=== PATIENT | female | born 1950 | race African-American/Black ===

== ENCOUNTER 2017-11-14 21:30 | Inpatient (IN) | payer MEDICARE, MEDICAID ==
[~2017-11-14] VITALS: Ht 165.1 cm; Wt 134.1 kg
[2017-11-14 23:32] LABS: Eosinophils # (auto) 0 uL
[2017-11-14 23:34] LABS: Basophils # (auto) 0.3 uL; Basophils % (auto) 1.9 % (0.0-2.0); Eosinophils % (auto) 0.1 % (0.0-7.0); Hematocrit 43.6 % (36.0-46.0); Hemoglobin 11.4 g/dL (12.2-16.2); Lymphocytes % (auto) 19.6 % (10.0-50.0); Mean Corpuscular Hemoglobin 15.6 pg (28.0-32.0); Mean Corpuscular Hgb Conc. 26.1 g/dL (32.0-36.0); Monocytes # (auto) 1.4 uL; Neutrophils # (auto) 10.5 uL; Neutrophils % (auto) 69.4 % (37.0-80.0); Nucleated Red Blood Cells % 0.9 %; Red Blood Cells 7.29 10^6/uL (4.0-5.20); White Blood Cell 15.1 10^3/uL (4.4-10.8)
[2017-11-14 23:37] LABS: INR 1.1 (0.9-1.15); Partial Thromboplastin Time 22.6 sec (22.64-33.71)
[2017-11-14 23:39] LABS: Mean Corpuscular Volume 59.9 fL (80.0-100.0); Platelet Count (auto) 179 10^3/uL (140-450); Red Cell Distribution Width 26.6 % (11.8-14.3)
[2017-11-14 23:45] LABS: Albumin 3.1 g/dL (3.4-5.0); BUN/Creatinine Ratio 17.2; Calcium 8.5 mg/dL (8.5-10.1); Magnesium 2.3 mg/dL (1.6-2.6); Potassium 5.5 mmol/L (3.5-5.1)
[2017-11-14 23:48] LABS: Bilirubin, Total 0.8 mg/dL (0.2-1.0); Total Protein 6.9 g/dL (6.4-8.2)
[2017-11-15 02:26] LABS: Lactic Acid w/Reflex 3.3 mmol/L (0.4-2.0)
[2017-11-15] MEDS ORDERED: FUROSEMIDE 40 MG/4 ML VIAL IV ONE ×2 (03:15→05:15)
[2017-11-15] MEDS ORDERED: ALBUMIN 25% 100 ML IV ONE (05:15)
[2017-11-15] MEDS ORDERED: PIPERACILLIN-TAZOB 2.25GM 50 ML IV ONE (05:15)
[2017-11-15] MEDS ORDERED: ACETAMINOPHEN 325 MG TAB PO PRN (05:15)
[2017-11-15] MEDS ORDERED: MORPHINE SULFATE 4 MG/ML SYR/VIAL IV PRN (05:15)
[2017-11-15] MEDS ORDERED: DEXTROSE (50%) 50ML SYRG IV PRN (05:15)
[2017-11-15] MEDS ORDERED: ATORVASTATIN 20 MG TAB PO ONE (05:15)
[2017-11-15] MEDS ORDERED: NITROGLYCERIN 0.4 MG SL TAB SL PRN (05:15)
[2017-11-15] MEDS ORDERED: ONDANSETRON HCL 4 MG/2 ML VIAL IV PRN (05:15)
[2017-11-15] MEDS ORDERED: ALBUTEROL SULF 2.5 MG/0.5ML(0.5%) NEB SOLN NEB ONE (05:45)
[2017-11-15] MEDS ORDERED: methylPREDNISolone SOD SUCC 125 MG/2 ML VL IV ONE (05:45)
[2017-11-15] MEDS: InsuLIN REG 1unit/0.01ml Soln (100units/ml) SC SCH ×3 (06:00→18:27)
[2017-11-15] MEDS: ACCU-CHEK COMFORT CURVE STRIP VI SCH ×3 (06:08→18:15)
[2017-11-15] MEDS: NOREPINEPHRINE 8 MG/250ML KIT 250 ML IV SCH (07:51)
[2017-11-15 08:57] LABS: Urine Bacteria FEW /hpf (None Seen); Urine Blood 1+ /uL (Negative); Urine Hyaline Cast MOD /lpf (0 - 2); Urine Mucus FEW (None Seen); Urine Specific Gravity 1.014 (1.001-1.035); Urine WBC 90 /hpf (0 - 5); Urine WBC Clumps PRESENT /hpf (None Seen)
[2017-11-15 08:58] LABS: Anion Gap 8 (5-15); Blood Urea Nitrogen 40 mg/dL (7-18); Calcium 8.6 mg/dL (8.5-10.1); Carbon Dioxide 26 mmol/L (21-32); Chloride 103 mmol/L (98-107); GFR African American 32 mL/min; GFR Non-African American 26 mL/min; Glucose 118 mg/dL (74-106); Potassium 5.4 mmol/L (3.5-5.1); Sodium 137 mmol/L (136-145)
[2017-11-15 10:00] VITALS: BP 118/65
[2017-11-15] MEDS ORDERED: ENOXAPARIN SOD 30 MG/0.3 ML SYRINGE SC SCH (10:00)
[2017-11-15] MEDS ORDERED: VANCOMYCIN PER PHARMACY 0 MG IV SCH (11:15)
[2017-11-15] MEDS ORDERED: VANCOMYCIN 1GM/250ML 250 ML IV ONE (11:15)
[2017-11-15] MEDS ORDERED: ENOXAPARIN SOD 120 MG/0.8 ML SYRINGE SC SCH (11:30)
[2017-11-15 12:07] VITALS: BP 120/63
[2017-11-15] MEDS: ENOXAPARIN SOD 120 MG/0.8 ML SYRINGE SC SCH (12:09)
[2017-11-15] MEDS: PIPERACILLIN-TAZOB 2.25GM 50 ML IV SCH ×2 (12:09→18:04)
[2017-11-15 14:00] VITALS: BP 118/62
[2017-11-15] MEDS: VANCOMYCIN 1GM/250ML 250 ML IV SCH (14:17)
[2017-11-15 15:40] VITALS: BP 114/68
[2017-11-15 20:16] VITALS: BP 122/64
[2017-11-15 22:02] VITALS: BP 131/74
[2017-11-15] MEDS: ATORVASTATIN 20 MG TAB PO SCH (22:29)
[2017-11-16 00:10] VITALS: BP 107/64
[2017-11-16] MEDS: ACCU-CHEK COMFORT CURVE STRIP VI SCH ×5 (01:00→23:57)
[2017-11-16] MEDS: PIPERACILLIN-TAZOB 2.25GM 50 ML IV SCH ×5 (01:02→23:41)
[2017-11-16] MEDS: InsuLIN REG 1unit/0.01ml Soln (100units/ml) SC SCH ×5 (01:10→23:57)
[2017-11-16 02:09] VITALS: BP 107/66
[2017-11-16 04:07] VITALS: BP 116/67
[2017-11-16 05:46] LABS: Eosinophils # (auto) 0 uL
[2017-11-16 05:49] LABS: Basophils # (auto) 0.2 uL; Basophils % (auto) 1.1 % (0.0-2.0); Hematocrit 36.5 % (36.0-46.0); Hemoglobin 9.7 g/dL (12.2-16.2); Lymphocytes % (auto) 14.5 % (10.0-50.0); Mean Corpuscular Hemoglobin 15.8 pg (28.0-32.0); Mean Corpuscular Hgb Conc. 26.7 g/dL (32.0-36.0); Monocytes # (auto) 2.3 uL; Monocytes % (auto) 16.7 % (0.0-12.0); Neutrophils # (auto) 9.5 uL; Neutrophils % (auto) 67.7 % (37.0-80.0); Nucleated Red Blood Cells % 1.6 %; Red Blood Cells 6.19 10^6/uL (4.0-5.20); White Blood Cell 14.1 10^3/uL (4.4-10.8)
[2017-11-16] MEDS: NOREPINEPHRINE 8 MG/250ML KIT 250 ML IV SCH (05:53)
[2017-11-16 05:58] VITALS: BP 121/58
[2017-11-16 06:08] LABS: BUN/Creatinine Ratio 22.2; Bilirubin, Total 0.9 mg/dL (0.2-1.0); Calcium 8.4 mg/dL (8.5-10.1); Potassium 5.3 mmol/L (3.5-5.1); Total Protein 7.1 g/dL (6.4-8.2)
[2017-11-16 06:09] LABS: Red Cell Distribution Width 25.5 % (11.8-14.3)
[2017-11-16 06:10] LABS: Platelet Count (auto) 172 10^3/uL (140-450)
[2017-11-16] MEDS: VANCOMYCIN 1GM/250ML 250 ML IV SCH (07:53)
[2017-11-16] MEDS ORDERED: HYDR-531 PO (09:31)
[2017-11-16] MEDS: LEVOFLOXACIN 250MG 50 ML IV SCH (10:10)
[2017-11-16] MEDS: ENOXAPARIN SOD 120 MG/0.8 ML SYRINGE SC SCH (10:10)
[2017-11-16] MEDS ORDERED: LEVOFLOXACIN 500MG 100 ML IV SCH (11:30)
[2017-11-16] MEDS: HYDROcodone-ACET 5/325MG TAB PO PRN (13:26)
[2017-11-16 17:37] VITALS: BP 125/57
[2017-11-16] MEDS: TEMAZEPAM 15 MG CAP PO PRN (21:45)
[2017-11-16] MEDS: ATORVASTATIN 20 MG TAB PO SCH (21:45)
[2017-11-16 22:00] VITALS: BP 119/66
[2017-11-16 22:17] LABS: Urine Bacteria NONE SEEN /hpf (None Seen); Urine Blood 2+ /uL (Negative); Urine Specific Gravity 1.015 (1.001-1.035); Urine WBC 17 /hpf (0 - 5)
[2017-11-16 22:33] LABS: Protein, Urine 32.4 mg/dL (0.0-11.9)
[2017-11-17] VITALS (7 sets, daily range): BP systolic 115–129; BP diastolic 56–71
[2017-11-17] MEDS: VANCOMYCIN 1GM/250ML 250 ML IV SCH ×2 (00:56→18:49)
[2017-11-17] MEDS: NOREPINEPHRINE 8 MG/250ML KIT 250 ML IV SCH (05:01)
[2017-11-17] MEDS: PIPERACILLIN-TAZOB 2.25GM 50 ML IV SCH ×4 (05:27→23:52)
[2017-11-17] MEDS: InsuLIN REG 1unit/0.01ml Soln (100units/ml) SC SCH ×3 (06:00→17:39)
[2017-11-17] MEDS: ACCU-CHEK COMFORT CURVE STRIP VI SCH ×4 (06:10→23:53)
[2017-11-17 08:58] LABS: Basophils # (auto) 0.3 uL; Eosinophils # (auto) 0.1 uL; Eosinophils % (auto) 0.9 % (0.0-7.0); Lymphocytes % (auto) 12.8 % (10.0-50.0)
[2017-11-17 09:00] LABS: Albumin 2.9 g/dL (3.4-5.0); BUN/Creatinine Ratio 22.3; Basophils % (auto) 1.8 % (0.0-2.0); Calcium 8.7 mg/dL (8.5-10.1); Hematocrit 37.3 % (36.0-46.0); Hemoglobin 9.8 g/dL (12.2-16.2); Mean Corpuscular Hemoglobin 15.4 pg (28.0-32.0); Mean Corpuscular Hgb Conc. 26.4 g/dL (32.0-36.0); Mean Corpuscular Volume 58.2 fL (80.0-100.0); Monocytes # (auto) 1.5 uL; Monocytes % (auto) 9.9 % (0.0-12.0); Neutrophils # (auto) 11.5 uL; Neutrophils % (auto) 74.6 % (37.0-80.0); Nucleated Red Blood Cells % 0.5 %; Phosphorus 2.7 mg/dL (2.5-4.90); Platelet Count (auto) 168 10^3/uL (140-450); Potassium 4.2 mmol/L (3.5-5.1); Total Protein 6.8 g/dL (6.4-8.2); Uric Acid 5.4 mg/dL (2.6-6.0); White Blood Cell 15.4 10^3/uL (4.4-10.8)
[2017-11-17 09:20] LABS: Red Cell Distribution Width 25.5 % (11.8-14.3)
[2017-11-17] MEDS ORDERED: LIDOCAINE 2%HCL (LOCAL ANESTH.) INJ 20ML MDV ONE ×2 (09:20→10:01)
[2017-11-17] MEDS ORDERED: IOHEXOL 350 MG/ML 100ML IJ ONE (09:20)
[2017-11-17] MEDS: ENOXAPARIN SOD 120 MG/0.8 ML SYRINGE SC SCH (09:42)
[2017-11-17] MEDS: LEVOFLOXACIN 250MG 50 ML IV SCH (09:42)
[2017-11-17] MEDS ORDERED: fentaNYL CITRATE 100 MCG/2 ML VL ONE (09:53)
[2017-11-17] MEDS ORDERED: SODIUM CHL 0.9% 0 ML ONE (09:53)
[2017-11-17] MEDS ORDERED: MIDAZOLAM HCL 1MG/1ML-2 ML VIAL ONE (09:53)
[2017-11-17] MEDS ORDERED: ANGIOMAX 250 MG VIAL IV ONE (09:53)
[2017-11-17] MEDS ORDERED: LIDOCAINE HCL 100 MG/5ML (2%) SYRG INJ IV ONE (10:09)
[2017-11-17] MEDS ORDERED: ONDANSETRON HCL 4 MG/2 ML VIAL ONE (10:15)
[2017-11-17] MEDS ORDERED: SODIUM CHLORIDE 0.9% 1,000 ML IV ONE (15:15)
[2017-11-17] MEDS ORDERED: MAGN400C2 PO (15:39)
[2017-11-17] MEDS ORDERED: LORA-35 PO (15:39)
[2017-11-17] MEDS ORDERED: PROP80CA10 PO (15:39)
[2017-11-17] MEDS ORDERED: SIMV-8 PO (15:39)
[2017-11-17] MEDS ORDERED: METF-371 PO (15:39)
[2017-11-17] MEDS ORDERED: INSUINJ2 SC ×2 (15:48)
[2017-11-17] MEDS ORDERED: INSLISPI SC ×2 (15:48)
[2017-11-17] MEDS ORDERED: LISI10TA6 PO (15:48)
[2017-11-17] MEDS ORDERED: HYDR-3682 PO (15:48)
[2017-11-17] MEDS ORDERED: CYCL7.5T15 PO (15:48)
[2017-11-17] MEDS ORDERED: ALLO100T PO (15:48)
[2017-11-17] MEDS ORDERED: OMEP20CA74 PO (15:48)
[2017-11-17] MEDS ORDERED: GABA300C10 PO (15:48)
[2017-11-17] MEDS ORDERED: CHOL200031 PO (15:49)
[2017-11-17] MEDS: HYDROcodone-ACET 5/325MG TAB PO PRN ×2 (17:56→22:31)
[2017-11-17] MEDS: ATORVASTATIN 20 MG TAB PO SCH (22:31)
[2017-11-18] VITALS (7 sets, daily range): BP systolic 119–154; BP diastolic 60–72
[2017-11-18] MEDS: InsuLIN REG 1unit/0.01ml Soln (100units/ml) SC SCH ×5 (00:04→23:39)
[2017-11-18] MEDS: NOREPINEPHRINE 8 MG/250ML KIT 250 ML IV SCH (05:01)
[2017-11-18] MEDS: PIPERACILLIN-TAZOB 2.25GM 50 ML IV SCH ×4 (05:24→23:29)
[2017-11-18] MEDS: ACCU-CHEK COMFORT CURVE STRIP VI SCH ×4 (05:29→23:34)
[2017-11-18] MEDS: VANCOMYCIN 1GM/250ML 250 ML IV SCH ×2 (07:08→18:24)
[2017-11-18 09:40] LABS: Eosinophils # (auto) 0.1 uL; Hemoglobin 10.1 g/dL (12.2-16.2); Mean Corpuscular Volume 60.1 fL (80.0-100.0); White Blood Cell 12.9 10^3/uL (4.4-10.8)
[2017-11-18 09:42] LABS: Basophils # (auto) 0.2 uL; Basophils % (auto) 1.5 % (0.0-2.0); Eosinophils % (auto) 0.5 % (0.0-7.0); Hematocrit 39.1 % (36.0-46.0); Lymphocytes # (auto) 1.5 uL; Lymphocytes % (auto) 11.9 % (10.0-50.0); Mean Corpuscular Hemoglobin 15.5 pg (28.0-32.0); Mean Corpuscular Hgb Conc. 25.8 g/dL (32.0-36.0); Monocytes # (auto) 1.4 uL; Monocytes % (auto) 10.7 % (0.0-12.0); Neutrophils # (auto) 9.7 uL; Neutrophils % (auto) 75.4 % (37.0-80.0); Nucleated Red Blood Cells % 1.3 %; Platelet Count (auto) 173 10^3/uL (140-450); Red Blood Cells 6.51 10^6/uL (4.0-5.20)
[2017-11-18 09:49] LABS: Red Cell Distribution Width 26.3 % (11.8-14.3)
[2017-11-18 10:07] LABS: BUN/Creatinine Ratio 16.9; Bilirubin, Total 1.1 mg/dL (0.2-1.0); Calcium 8.7 mg/dL (8.5-10.1); Total Protein 7.2 g/dL (6.4-8.2)
[2017-11-18] MEDS: LEVOFLOXACIN 500MG 100 ML IV SCH (12:53)
[2017-11-18] MEDS: ENOXAPARIN SOD 120 MG/0.8 ML SYRINGE SC SCH ×2 (12:53→22:25)
[2017-11-18] MEDS: TEMAZEPAM 15 MG CAP PO PRN (22:25)
[2017-11-18] MEDS: ATORVASTATIN 20 MG TAB PO SCH (22:25)
[2017-11-19] MEDS: ALBUTEROL SULF 2.5 MG/0.5ML(0.5%) NEB SOLN NEB PRN ×2 (01:27→09:31)
[2017-11-19 05:00] VITALS: BP 144/64
[2017-11-19] MEDS: PIPERACILLIN-TAZOB 2.25GM 50 ML IV SCH ×2 (05:06→11:24)
[2017-11-19] MEDS: ACCU-CHEK COMFORT CURVE STRIP VI SCH ×2 (05:13→11:24)
[2017-11-19] MEDS: InsuLIN REG 1unit/0.01ml Soln (100units/ml) SC SCH ×2 (05:14→11:40)
[2017-11-19 05:59] LABS: Potassium 4.4 mmol/L (3.5-5.1)
[2017-11-19 06:03] LABS: BUN/Creatinine Ratio 16.5; Calcium 8.4 mg/dL (8.5-10.1)
[2017-11-19] MEDS: VANCOMYCIN 1GM/250ML 250 ML IV SCH (06:50)
[2017-11-19 08:00] VITALS: BP 129/65
[2017-11-19 09:00] VITALS: BP 129/65
[2017-11-19] MEDS: ENOXAPARIN SOD 120 MG/0.8 ML SYRINGE SC SCH (09:49)
[2017-11-19] MEDS: LEVOFLOXACIN 500MG 100 ML IV SCH (09:49)
[2017-11-19 12:20] VITALS: BP 129/65
[2017-12-28] MEDS ORDERED: FERR28TA2 PO (22:46)
[2017-12-28] MEDS ORDERED: ASCO500C49 PO (22:46)
[2017-12-28] MEDS ORDERED: POTA10TA51 PO (22:46)
[2017-12-28] MEDS ORDERED: FURO40TA PO (22:46)
== END 2017-11-19 14:20 | disposition home or self-care (01) | DRG 871 ==
LOC: ER 21:30 → OVERFLOW 21:31 → TELE-WESTW 11-16 17:09
PROVIDERS: ADMIT Nurse Practitioner; ATTEND Family Medicine
PROC: 5A09357 Assistance with Respiratory Ventilation, Less than 24 Consecutive Hours, Continuous Positive Airway Pressure (ICD-10-PCS; 2017-11-15)
PROC: 5A09357 Assistance with Respiratory Ventilation, Less than 24 Consecutive Hours, Continuous Positive Airway Pressure (ICD-10-PCS; 2017-11-16)
PROC: 4A023N8 Measurement of Cardiac Sampling and Pressure, Bilateral, Percutaneous Approach (ICD-10-PCS; principal; 2017-11-17)
PROC: B2111ZZ Fluoroscopy of Multiple Coronary Arteries using Low Osmolar Contrast (ICD-10-PCS; 2017-11-17)
PROC: B2151ZZ Fluoroscopy of Left Heart using Low Osmolar Contrast (ICD-10-PCS; 2017-11-17)
DX: A41.9 Sepsis, unspecified organism (principal); R65.21 Severe sepsis with septic shock; J96.01 Acute respiratory failure with hypoxia; J96.02 Acute respiratory failure with hypercapnia; I27.0 Primary pulmonary hypertension; I50.43 Acute on chronic combined systolic (congestive) and diastolic (congestive) heart failure; N17.9 Acute kidney failure, unspecified; N39.0 Urinary tract infection, site not specified; I13.0 Hypertensive heart and chronic kidney disease with heart failure and stage 1 through stage 4 chronic kidney disease, or unspecified chronic kidney disease; J44.1 Chronic obstructive pulmonary disease with (acute) exacerbation; Z68.42 Body mass index [BMI] 45.0-49.9, adult; E66.01 Morbid (severe) obesity due to excess calories; E11.22 Type 2 diabetes mellitus with diabetic chronic kidney disease; N18.3 Chronic kidney disease, stage 3 (moderate); D64.9 Anemia, unspecified; E78.5 Hyperlipidemia, unspecified; E86.1 Hypovolemia; E87.5 Hyperkalemia; R79.1 Abnormal coagulation profile; E66.9 Obesity, unspecified; E78.00 Pure hypercholesterolemia, unspecified; G47.00 Insomnia, unspecified; Z79.4 Long term (current) use of insulin
CPT/HCPCS: 36415; 36600; 51702; 70450; 71045; 72125; 80048; 80053; 80202; 81001; 82570; 82805; 82962; 83605; 83735; 83880; 84100; 84156; 84300; 84484; 84550; 85025; 85379; 85610; 85730; 87040; 87081; 87086; 87804; 93005; 93306; 93460; 93970; 94640; 94660; 94761; 96372; 96374; 96375; 99152; G0378; J1815; J1956; J2250; J2405; J2543

== ENCOUNTER → 2018-02-17 | Outpatient (CLI) | payer MEDICARE, MEDICAID ==
[~2018-02-17] MED LIST: ALLO100T PO; ASCO500C49 PO; CHOL200031 PO; CYCL7.5T15 PO; FERR28TA2 PO; FURO40TA PO; GABA300C10 PO; HYDR-3682 PO; INSLISPI SC; INSUINJ2 SC; LISI10TA6 PO; LORA-35 PO; MAGN400C2 PO; METF-371 PO; OMEP20CA74 PO; POTA10TA51 PO; SIMV-8 PO
[2018-02-17 16:36] LABS: Eosinophils # (auto) 0.4 uL; Hemoglobin 13.1 g/dL (12.2-16.2); Mean Corpuscular Hemoglobin 19.8 pg (28.0-32.0)
[2018-02-17 16:38] LABS: Basophils # (auto) 0.2 uL; Eosinophils % (auto) 2.5 % (0.0-7.0); Hematocrit 44.8 % (36.0-46.0); Lymphocytes % (auto) 25.1 % (10.0-50.0); Mean Corpuscular Hgb Conc. 29.4 g/dL (32.0-36.0); Mean Corpuscular Volume 67.3 fL (80.0-100.0); Monocytes # (auto) 1.3 uL; Monocytes % (auto) 7.9 % (0.0-12.0); Neutrophils # (auto) 10.1 uL; Neutrophils % (auto) 63.5 % (37.0-80.0); Nucleated Red Blood Cells % 0.2 %; Platelet Count (auto) 272 10^3/uL (140-450); Red Blood Cells 6.65 10^6/uL (4.0-5.20); White Blood Cell 15.9 10^3/uL (4.4-10.8)
[2018-02-17 16:43] LABS: Red Cell Distribution Width 28.7 % (11.8-14.3)
[2018-02-17 18:46] LABS: % Iron Saturation 20.3 % (15-50)
[2018-02-17 18:47] LABS: Albumin 3.6 g/dL (3.4-5.0); BUN/Creatinine Ratio 11.7; Bilirubin, Total 0.3 mg/dL (0.2-1.0); Total Protein 8.7 g/dL (6.4-8.2)
== END | disposition home or self-care (01) ==
LOC: LAB 15:41
PROVIDERS: ATTEND Internal Medicine
DX: D64.9 Anemia, unspecified (principal); I13.2 Hypertensive heart and chronic kidney disease with heart failure and with stage 5 chronic kidney disease, or end stage renal disease; E11.22 Type 2 diabetes mellitus with diabetic chronic kidney disease; N18.6 End stage renal disease; I50.43 Acute on chronic combined systolic (congestive) and diastolic (congestive) heart failure
CPT/HCPCS: 36415; 80053; 83021; 83540; 83550; 83615; 85025; 85660

== ENCOUNTER → 2018-04-20 | Outpatient (CLI) | payer MEDICARE, MEDICAID ==
[2018-04-20 14:25] VITALS: BP 124/72
[2018-04-20 16:15] VITALS: BP 143/72
[2018-04-21 12:42] LABS: Basophils # (auto) 0.1 uL; Basophils % (auto) 0.6 % (0.0-2.0); Nucleated Red Blood Cells % 0.3 %
[2018-04-21 12:45] LABS: Eosinophils # (auto) 0.1 uL; Eosinophils % (auto) 0.9 % (0.0-7.0); Hematocrit 44.2 % (36.0-46.0); Lymphocytes # (auto) 3.1 uL; Lymphocytes % (auto) 25.2 % (10.0-50.0); Mean Corpuscular Hemoglobin 21.5 pg (28.0-32.0); Mean Corpuscular Hgb Conc. 29.5 g/dL (32.0-36.0); Monocytes # (auto) 0.8 uL; Monocytes % (auto) 6.7 % (0.0-12.0); Neutrophils # (auto) 8.2 uL; Neutrophils % (auto) 66.6 % (37.0-80.0); Platelet Count (auto) 238 10^3/uL (140-450); Red Blood Cells 6.05 10^6/uL (4.0-5.20); Urine Blood Negative /uL (Negative); Urine Specific Gravity 1.009 (1.001-1.035); White Blood Cell 12.3 10^3/uL (4.4-10.8)
[2018-04-21 12:59] LABS: Red Cell Distribution Width 21.8 % (11.8-14.3)
[2018-04-21 13:17] LABS: Albumin 3.5 g/dL (3.4-5.0); BUN/Creatinine Ratio 14.4; Calcium 9.2 mg/dL (8.5-10.1); Magnesium 2.2 mg/dL (1.6-2.6); Potassium 4.6 mmol/L (3.5-5.1)
[2018-04-21 13:19] LABS: Bilirubin, Total 0.2 mg/dL (0.2-1.0); Total Protein 8.4 g/dL (6.4-8.2)
== END | disposition home or self-care (01) ==
LOC: CHF HDHVI 14:49
PROVIDERS: ATTEND Internal Medicine Cardiovascular Disease
DX: D64.9 Anemia, unspecified (principal); E55.9 Vitamin D deficiency, unspecified; N39.0 Urinary tract infection, site not specified; I27.21 Secondary pulmonary arterial hypertension; I13.2 Hypertensive heart and chronic kidney disease with heart failure and with stage 5 chronic kidney disease, or end stage renal disease; E11.22 Type 2 diabetes mellitus with diabetic chronic kidney disease; N18.6 End stage renal disease; I50.9 Heart failure, unspecified
CPT/HCPCS: 36415; 80053; 81003; 82306; 83735; 85025; 87086; 93701; 94618; G0463

== ENCOUNTER → 2018-04-28 | Outpatient (CLI) | payer MEDICARE, MEDICAID | END | disposition home or self-care (01) | LOC: Rad HDHVI 12:35 | PROVIDERS: ATTEND Internal Medicine Cardiovascular Disease | DX: I07.1 Rheumatic tricuspid insufficiency (principal); I09.89 Other specified rheumatic heart diseases; M10.9 Gout, unspecified; I31.3 Pericardial effusion (noninflammatory); E78.00 Pure hypercholesterolemia, unspecified; R06.02 Shortness of breath | CPT/HCPCS: 93306 ==

== ENCOUNTER → 2018-05-05 | Outpatient (CLI) | payer MEDICARE, MEDICAID | END | disposition home or self-care (01) | LOC: Rad HDHVI 12:37 | PROVIDERS: ATTEND Internal Medicine Cardiovascular Disease | DX: I73.9 Peripheral vascular disease, unspecified (principal); M10.9 Gout, unspecified; E11.40 Type 2 diabetes mellitus with diabetic neuropathy, unspecified; E78.00 Pure hypercholesterolemia, unspecified | CPT/HCPCS: 93880; 93926 ==

== ENCOUNTER → 2018-05-26 | Outpatient (CLI) | payer MEDICARE, MEDICAID ==
[2018-05-26 11:15] VITALS: BP 122/60
[2018-05-26 12:20] VITALS: BP 148/75
== END | disposition home or self-care (01) ==
LOC: CHF HDHVI 14:41
PROVIDERS: ATTEND Internal Medicine Cardiovascular Disease
DX: I27.21 Secondary pulmonary arterial hypertension (principal)
CPT/HCPCS: G0463

== ENCOUNTER → 2018-06-02 | Outpatient (CLI) | payer MEDICARE, MEDICAID ==
[2018-06-02 10:45] VITALS: BP 129/55
[2018-06-02 11:45] VITALS: BP 136/63
[2018-06-02 15:58] LABS: Basophils # (auto) 0.1 uL; Basophils % (auto) 0.5 % (0.0-2.0); Eosinophils # (auto) 0.2 uL; Eosinophils % (auto) 1.9 % (0.0-7.0); Hematocrit 39.8 % (36.0-46.0); Hemoglobin 12.3 g/dL (12.2-16.2); Lymphocytes # (auto) 2.7 uL; Lymphocytes % (auto) 25.8 % (10.0-50.0); Mean Corpuscular Hgb Conc. 30.9 g/dL (32.0-36.0); Mean Corpuscular Volume 71.2 fL (80.0-100.0); Neutrophils # (auto) 6.7 uL; Neutrophils % (auto) 62.8 % (37.0-80.0); Nucleated Red Blood Cells % 0.5 %; Platelet Count (auto) 239 10^3/uL (140-450); Red Blood Cells 5.59 10^6/uL (4.0-5.20); Red Cell Distribution Width 18.3 % (11.8-14.3); White Blood Cell 10.7 10^3/uL (4.4-10.8)
[2018-06-02 16:09] LABS: Albumin 3.6 g/dL (3.4-5.0); BUN/Creatinine Ratio 17.2; Bilirubin, Total 0.3 mg/dL (0.2-1.0); Magnesium 2.2 mg/dL (1.6-2.6); Potassium 4.6 mmol/L (3.5-5.1); Total Protein 8.2 g/dL (6.4-8.2)
== END | disposition home or self-care (01) ==
LOC: CHF HDHVI 11:04
PROVIDERS: ATTEND Internal Medicine Cardiovascular Disease
DX: I13.2 Hypertensive heart and chronic kidney disease with heart failure and with stage 5 chronic kidney disease, or end stage renal disease (principal); E11.22 Type 2 diabetes mellitus with diabetic chronic kidney disease; N18.6 End stage renal disease; I50.23 Acute on chronic systolic (congestive) heart failure; E83.40 Disorders of magnesium metabolism, unspecified; D64.9 Anemia, unspecified; I27.21 Secondary pulmonary arterial hypertension; Z99.81 Dependence on supplemental oxygen; Z79.899 Other long term (current) drug therapy
CPT/HCPCS: 36415; 80053; 83036; 83735; 83880; 85025; G0463

== ENCOUNTER → 2018-06-16 | Outpatient (CLI) | payer MEDICARE, MEDICAID ==
[~2018-06-16] MED LIST changes: +CYANOCOBALAMIN (B-12) 1000 MCG/1 ML VIAL IM ONE; +CYANOCOBALAMIN (B-12) 1000 MCG/1 ML VIAL ONE
[2018-06-16 11:00] VITALS: BP 142/70
[2018-06-16 12:30] VITALS: BP 138/63
[2018-06-16 16:34] LABS: Basophils # (auto) 0 uL; Basophils % (auto) 0.5 % (0.0-2.0); Eosinophils # (auto) 0.3 uL; Eosinophils % (auto) 3.3 % (0.0-7.0); Hematocrit 38.2 % (36.0-46.0); Hemoglobin 11.9 g/dL (12.2-16.2); Lymphocytes # (auto) 2.4 uL; Lymphocytes % (auto) 27.6 % (10.0-50.0); Mean Corpuscular Hgb Conc. 31.1 g/dL (32.0-36.0); Mean Corpuscular Volume 70.7 fL (80.0-100.0); Monocytes % (auto) 11.3 % (0.0-12.0); Neutrophils # (auto) 4.9 uL; Neutrophils % (auto) 57.3 % (37.0-80.0); Nucleated Red Blood Cells % 0.1 %; Platelet Count (auto) 224 10^3/uL (140-450); Red Cell Distribution Width 18.5 % (11.8-14.3); White Blood Cell 8.6 10^3/uL (4.4-10.8)
[2018-06-16 16:45] LABS: BUN/Creatinine Ratio 14.3; Calcium 9.5 mg/dL (8.5-10.1); Potassium 4.5 mmol/L (3.5-5.1)
== END | disposition home or self-care (01) ==
LOC: CHF HDHVI 11:19
PROVIDERS: ATTEND Internal Medicine Cardiovascular Disease
DX: D64.9 Anemia, unspecified (principal); R53.83 Other fatigue; I27.21 Secondary pulmonary arterial hypertension; I13.2 Hypertensive heart and chronic kidney disease with heart failure and with stage 5 chronic kidney disease, or end stage renal disease; E11.22 Type 2 diabetes mellitus with diabetic chronic kidney disease; N18.6 End stage renal disease; I50.23 Acute on chronic systolic (congestive) heart failure; E78.00 Pure hypercholesterolemia, unspecified; Z99.81 Dependence on supplemental oxygen; Z79.899 Other long term (current) drug therapy
CPT/HCPCS: 36415; 80048; 85025; 96372; G0463; J3420

== ENCOUNTER → 2018-06-30 | Outpatient (CLI) | payer MEDICARE, MEDICAID ==
[~2018-06-30] MED LIST changes: -CYANOCOBALAMIN (B-12) 1000 MCG/1 ML VIAL IM ONE; -CYANOCOBALAMIN (B-12) 1000 MCG/1 ML VIAL ONE
[2018-06-30 10:50] VITALS: BP 150/75
[2018-06-30 11:39] VITALS: BP 139/78
[2018-06-30 16:20] LABS: Basophils # (auto) 0.1 uL
[2018-06-30 16:23] LABS: Eosinophils % (auto) 2.3 % (0.0-7.0)
[2018-06-30 16:24] LABS: Potassium 4.3 mmol/L (3.5-5.1)
[2018-06-30 16:33] LABS: Basophils % (auto) 0.7 % (0.0-2.0); Eosinophils # (auto) 0.3 uL; Hematocrit 39.6 % (36.0-46.0); Hemoglobin 12.3 g/dL (12.2-16.2); Lymphocytes # (auto) 2.7 uL; Lymphocytes % (auto) 24.5 % (10.0-50.0); Mean Corpuscular Hemoglobin 21.9 pg (28.0-32.0); Mean Corpuscular Hgb Conc. 31.1 g/dL (32.0-36.0); Mean Corpuscular Volume 70.5 fL (80.0-100.0); Monocytes # (auto) 1.1 uL; Monocytes % (auto) 10.1 % (0.0-12.0); Neutrophils # (auto) 6.8 uL; Neutrophils % (auto) 62.4 % (37.0-80.0); Nucleated Red Blood Cells % 0.7 %; Platelet Count (auto) 258 10^3/uL (140-450); Red Blood Cells 5.61 10^6/uL (4.0-5.20); Red Cell Distribution Width 18.4 % (11.8-14.3); White Blood Cell 10.9 10^3/uL (4.4-10.8)
== END | disposition home or self-care (01) ==
LOC: CHF HDHVI 11:36
PROVIDERS: ATTEND Internal Medicine Cardiovascular Disease
DX: E87.6 Hypokalemia (principal); R94.4 Abnormal results of kidney function studies; D64.9 Anemia, unspecified; I27.21 Secondary pulmonary arterial hypertension; E11.9 Type 2 diabetes mellitus without complications
CPT/HCPCS: 36415; 82565; 84132; 84520; 85025; G0463

== ENCOUNTER → 2018-07-29 | Outpatient (CLI) | payer MEDICARE, MEDICAID ==
[2018-07-29 09:13] VITALS: BP 155/75
[2018-07-29 10:15] VITALS: BP 143/75
[2018-07-29 14:20] VITALS: BP 155/75
== END | disposition home or self-care (01) ==
LOC: CHF HDHVI 08:59
PROVIDERS: ATTEND Internal Medicine Cardiovascular Disease
DX: I27.21 Secondary pulmonary arterial hypertension (principal)
CPT/HCPCS: 93701; G0463

== ENCOUNTER → 2018-08-12 | Outpatient (CLI) | payer MEDICARE, MEDICAID ==
[~2018-08-12] MED LIST changes: +CYANOCOBALAMIN (B-12) 1000 MCG/1 ML VIAL IM ONE; +CYANOCOBALAMIN (B-12) 1000 MCG/1 ML VIAL ONE
[2018-08-12 09:00] VITALS: BP 156/70
[2018-08-12 10:00] VITALS: BP 156/68
[2018-08-12 12:37] LABS: Basophils # (auto) 0 uL; Basophils % (auto) 0.4 % (0.0-2.0); Eosinophils # (auto) 0.2 uL; Eosinophils % (auto) 2.3 % (0.0-7.0); Lymphocytes # (auto) 2.8 uL; White Blood Cell 9.5 10^3/uL (4.4-10.8)
[2018-08-12 12:40] LABS: Hemoglobin 12.5 g/dL (12.2-16.2); Mean Corpuscular Hemoglobin 21.3 pg (28.0-32.0); Mean Corpuscular Hgb Conc. 30.6 g/dL (32.0-36.0); Mean Corpuscular Volume 69.8 fL (80.0-100.0); Monocytes # (auto) 0.8 uL; Monocytes % (auto) 8.9 % (0.0-12.0); Neutrophils # (auto) 5.5 uL; Neutrophils % (auto) 58.4 % (37.0-80.0); Nucleated Red Blood Cells % 0.2 %; Platelet Count (auto) 249 10^3/uL (140-450); Red Blood Cells 5.87 10^6/uL (4.0-5.20); Red Cell Distribution Width 17.8 % (11.8-14.3)
[2018-08-12 12:46] LABS: Albumin 3.5 g/dL (3.4-5.0); Calcium 9.4 mg/dL (8.5-10.1); Potassium 4.4 mmol/L (3.5-5.1)
[2018-08-12 12:48] LABS: BUN/Creatinine Ratio 13.2
[2018-08-12 12:51] LABS: Bilirubin, Total 0.3 mg/dL (0.2-1.0); Total Protein 8.4 g/dL (6.4-8.2)
== END | disposition home or self-care (01) ==
LOC: CHF HDHVI 09:51
PROVIDERS: ATTEND Internal Medicine Cardiovascular Disease
DX: D64.9 Anemia, unspecified (principal); I27.21 Secondary pulmonary arterial hypertension; R53.1 Weakness; I13.2 Hypertensive heart and chronic kidney disease with heart failure and with stage 5 chronic kidney disease, or end stage renal disease; E11.22 Type 2 diabetes mellitus with diabetic chronic kidney disease; N18.6 End stage renal disease; I50.43 Acute on chronic combined systolic (congestive) and diastolic (congestive) heart failure; I25.10 Atherosclerotic heart disease of native coronary artery without angina pectoris; J44.9 Chronic obstructive pulmonary disease, unspecified; E78.00 Pure hypercholesterolemia, unspecified; E78.5 Hyperlipidemia, unspecified; E66.01 Morbid (severe) obesity due to excess calories; Z68.42 Body mass index [BMI] 45.0-49.9, adult; Z99.81 Dependence on supplemental oxygen; Z79.4 Long term (current) use of insulin; Z79.899 Other long term (current) drug therapy
CPT/HCPCS: 36415; 80053; 85025; 96372; G0463; J3420

== ENCOUNTER → 2018-08-25 | Outpatient (CLI) | payer MEDICARE, MEDICAID ==
[~2018-08-25] MED LIST changes: -CYANOCOBALAMIN (B-12) 1000 MCG/1 ML VIAL IM ONE; -CYANOCOBALAMIN (B-12) 1000 MCG/1 ML VIAL ONE
== END | disposition home or self-care (01) ==
LOC: Rad HDHVI 08:01
PROVIDERS: ATTEND Internal Medicine Cardiovascular Disease
DX: I31.3 Pericardial effusion (noninflammatory) (principal); J98.4 Other disorders of lung; R06.02 Shortness of breath
CPT/HCPCS: 93306

== ENCOUNTER → 2018-10-28 | Outpatient (CLI) | payer MEDICARE, MEDICAID ==
[2018-10-28 11:13] VITALS: BP 131/59
[2018-10-28 12:00] VITALS: BP 130/67
--- NOTE | 2018-10-28 12:00 | NUR ---
CHF CLINIC Discharge Instructions See e-MAR for any mediations given with this visit. Patient education given on disease process. Patient verbalized understanding. Previous labs reviewed. Patient discharged in stable condition with after care instructions and follow up appointment ON 11/16/18 @ 1300. NOTE CARDIODYNAMICS PERFORMED DEVIN HERNANDEZ AND RESULTS REVIEWED WITH PATIENT BY MOLINA MAHONEY. 6MWT PERFORMED BY DEVIN HERNANDEZ, PATIENT HAD A 50 METER INCREASE SINCE LAST 6MWT.
== END | disposition home or self-care (01) ==
LOC: CHF HDHVI 11:13
PROVIDERS: ATTEND Internal Medicine Cardiovascular Disease
DX: I27.20 Pulmonary hypertension, unspecified (principal); E11.9 Type 2 diabetes mellitus without complications
CPT/HCPCS: 93701; 94618; G0463

== ENCOUNTER → 2019-01-11 | Outpatient (CLI) | payer MEDICARE, MEDICAID ==
[2019-01-11 10:10] VITALS: BP 142/59
[2019-01-11 11:30] VITALS: BP 163/57
--- NOTE | 2019-01-11 11:30 | NUR ---
IN TO CLINIC WITH FAMILY IN ATTENDANCE. PT ON OXYGEN CONTINUOUS AT 2 LPM. REVIEWED MEDS AND ACTIVITY. REVIEWED RECENT LABS THAT PT BROUGHT IN, TAKEN ON 12/29/18. NOTED TO HAVE HGB A1C ELEVATION. REVIEWED DIABETIC MANAGEMENT WITH PATIENT AND FAMILY. PT REPORTS THAT SHE STARTED A NEW REGIMEN 2 WEEKS AGO WITH 3 DIFFERENT INSULINS. ENCOURAGED TO CALL PRIMARY MD AND REVIEW MOST RECENT BLOOD SUGARS AND ASK FOR ANY RECOMMENDATIONS. 6 MWT DONE AND REVIEWED. CARDIODYNAMICS DONE AND REVIEWED. Discharge Instructions See e-MAR for any mediations given with this visit. Patient education given on disease process. Patient verbalized understanding. Previous labs reviewed. Patient discharged in stable condition with after care instructions and follow up appointment FOR 02/10/19 AT 0930.
== END | disposition home or self-care (01) ==
LOC: CHF HDHVI 10:21
PROVIDERS: ATTEND Internal Medicine Cardiovascular Disease
DX: I13.2 Hypertensive heart and chronic kidney disease with heart failure and with stage 5 chronic kidney disease, or end stage renal disease (principal); I50.9 Heart failure, unspecified; E11.22 Type 2 diabetes mellitus with diabetic chronic kidney disease; N18.6 End stage renal disease; I27.21 Secondary pulmonary arterial hypertension
CPT/HCPCS: 93701; G0463

== ENCOUNTER → 2019-01-28 | Outpatient (CLI) | payer MEDICARE, MEDICAID | END | disposition home or self-care (01) | LOC: Rad HDHVI 13:57 | PROVIDERS: ATTEND Internal Medicine Cardiovascular Disease | DX: I13.2 Hypertensive heart and chronic kidney disease with heart failure and with stage 5 chronic kidney disease, or end stage renal disease (principal); E11.22 Type 2 diabetes mellitus with diabetic chronic kidney disease; I50.9 Heart failure, unspecified; N18.6 End stage renal disease; R06.02 Shortness of breath | CPT/HCPCS: 93306 ==

== ENCOUNTER → 2019-02-10 | Outpatient (CLI) | payer MEDICARE, MEDICAID ==
[~2019-02-10] MED LIST changes: +CYANOCOBALAMIN (B-12) 1000 MCG/1 ML VIAL IM ONE; +CYANOCOBALAMIN (B-12) 1000 MCG/1 ML VIAL ONE
[2019-02-10 09:30] VITALS: BP 140/58
--- NOTE | 2019-02-10 09:30 | NUR ---
CHF PT ARRIVED TO CHF CLINIC FOR MONTHLY FOLLOW CARDIODYNAMICS.. V/S OBTAINED PT IN 0 DISTRESS.
--- NOTE | 2019-02-10 11:15 | NUR ---
CHF CARDIODYNAMICS ANDF 6 MIN WALK TEST COMPLETE. PT RESULTS DISCUSSED WITH PT.
[2019-02-10 11:20] VITALS: BP 150/60
--- NOTE | 2019-02-10 11:20 | NUR ---
Discharge Instructions See e-MAR for any mediations given with this visit. Patient education given on disease process. Patient verbalized understanding. Previous labs reviewed. Patient discharged in stable condition with after care instructions and follow up appointment. MEDICATIONS 1009 VITAMIN B12 1000MCG GIVEN LEFT DELTOID LOT # [id number] EXP JUN 2020 Addendum: 02/10/19 at 1146 by ANNA ANGLIN RN RN [place] PT HAS FOLLOW UP WITH MD FAUSTIN 02/17 AT 3P LAB HOLDEN SLIP GIVEN
== END | disposition home or self-care (01) ==
LOC: CHF HDHVI 09:35
PROVIDERS: ATTEND Internal Medicine Cardiovascular Disease
DX: I13.2 Hypertensive heart and chronic kidney disease with heart failure and with stage 5 chronic kidney disease, or end stage renal disease (principal); E11.22 Type 2 diabetes mellitus with diabetic chronic kidney disease; I50.9 Heart failure, unspecified; N18.6 End stage renal disease; R53.83 Other fatigue; R42 Dizziness and giddiness; I27.21 Secondary pulmonary arterial hypertension
CPT/HCPCS: 93701; 94618; 96372; G0463; J3420

== ENCOUNTER → 2019-06-02 | Outpatient (CLI) | payer MEDICARE, MEDICAID ==
[~2019-06-02] MED LIST changes: -CYANOCOBALAMIN (B-12) 1000 MCG/1 ML VIAL IM ONE; -CYANOCOBALAMIN (B-12) 1000 MCG/1 ML VIAL ONE; +FURO1TAB31 PO; -FURO40TA PO; +KETOROLAC TROMETH 60MG/2ML VIAL IM ONE; +KETOROLAC TROMETH 60MG/2ML VIAL ONE
[2019-06-02 09:05] VITALS: BP 133/53
[2019-06-02 10:35] VITALS: BP 142/60
--- NOTE | 2019-06-02 10:35 | NUR ---
IN FOR PAH FOLLOWUP. DYSPNEIC UPON ARRIVAL BUT RESOLVED WITH REST. OXYGEN IN USE FROM HOME AT 2 LPM. FAMILY IN ATTENDANCE. PT REPORTS PAIN TO RIGHT FOOT AT 8/10 R/T TOE FRACTURE. ORTHOTIC BOOT IN USE. CARDIODYNAMICS DONE AND REVIEWED. Discharge Instructions See e-MAR for any mediations given with this visit. Patient education given on disease process. Patient verbalized understanding. Previous labs reviewed. Patient discharged in stable condition with after care instructions and follow up appointment IN 2 WEEKS. MEDICATION ADMINISTRATION TORADOL IM TO LEFT DELTOID AT 1032
== END | disposition home or self-care (01) ==
LOC: CHF HDHVI 09:25
PROVIDERS: ATTEND Internal Medicine Cardiovascular Disease
DX: I25.10 Atherosclerotic heart disease of native coronary artery without angina pectoris (principal); I27.21 Secondary pulmonary arterial hypertension; I13.0 Hypertensive heart and chronic kidney disease with heart failure and stage 1 through stage 4 chronic kidney disease, or unspecified chronic kidney disease; E11.22 Type 2 diabetes mellitus with diabetic chronic kidney disease; N18.6 End stage renal disease; I50.9 Heart failure, unspecified
CPT/HCPCS: 93701; 96372; G0463; J1885

== ENCOUNTER → 2019-06-16 | Outpatient (CLI) | payer MEDICARE, MEDICAID ==
[~2019-06-16] MED LIST changes: -KETOROLAC TROMETH 60MG/2ML VIAL IM ONE; -KETOROLAC TROMETH 60MG/2ML VIAL ONE
[2019-06-16 08:15] VITALS: BP 124/60
--- NOTE | 2019-06-16 08:39 | NUR ---
IN TO CLINIC FOR 6 MWT. PT HAD PREVIOUS REPORTED PAIN IN LEFT FOOT AND WAS UNABLE TO COMPLETE 6MWT. PT REPORTS ONGOING PAIN IN LEFT FOOT AND DECLINES ABILITY TO COMPLETE 6 MWT. FAMILY IN ATTENDANCE. AUTHORIZATION FOR GENERIC LETARIS GIVEN TO [facility] PER FEROZ HERNANDEZ AFTER VERIFICATION WITH PHYSICIAN. . PT DISCHARGED TO SELF CARE IN NO DISTRESS OR DISCOMFORT. FOLLOWUP IN 1 MONTH, 07/09/19 AT 0800.
[2019-06-16 08:40] VITALS: BP 124/60
== END | disposition home or self-care (01) ==
LOC: CHF HDHVI 08:54
PROVIDERS: ATTEND Internal Medicine Cardiovascular Disease
DX: I27.21 Secondary pulmonary arterial hypertension (principal); I13.2 Hypertensive heart and chronic kidney disease with heart failure and with stage 5 chronic kidney disease, or end stage renal disease; E11.22 Type 2 diabetes mellitus with diabetic chronic kidney disease; I50.9 Heart failure, unspecified; N18.6 End stage renal disease
CPT/HCPCS: G0463

== ENCOUNTER → 2019-09-13 | Outpatient (CLI) | payer MEDICARE, MEDICAID ==
[~2019-09-13] VITALS: Ht 30.5 cm; Wt 0.5 kg
[~2019-09-13] MED LIST changes: +CYANOCOBALAMIN (B-12) 1000 MCG/1 ML VIAL IM ONE; +CYANOCOBALAMIN (B-12) 1000 MCG/1 ML VIAL ONE
[2019-09-13 09:10] VITALS: BP 129/65
[2019-09-13 09:38] VITALS: BP 124/55
--- NOTE | 2019-09-13 09:38 | NUR ---
CHF CLINIC Discharge Instructions See e-MAR for any mediations given with this visit. Patient education given on disease process. Patient verbalized understanding. Previous labs reviewed. Patient discharged in stable condition with after care instructions and follow up appointment. Note Cardiodynamics reviewed with pt by aCthy MAHONEY. B12 IM R deltoid admin by Melissa HERNANDEZ. Patient unable to do 6MWT because she has a cast on her left foot. Patient is on Adcirca and Letaris generic ALYQ for her PAH.
== END | disposition home or self-care (01) ==
LOC: CHF HDHVI 09:20
PROVIDERS: ATTEND Internal Medicine Cardiovascular Disease
DX: I13.0 Hypertensive heart and chronic kidney disease with heart failure and stage 1 through stage 4 chronic kidney disease, or unspecified chronic kidney disease (principal); N18.6 End stage renal disease; R53.83 Other fatigue; I27.21 Secondary pulmonary arterial hypertension; E11.22 Type 2 diabetes mellitus with diabetic chronic kidney disease; I25.10 Atherosclerotic heart disease of native coronary artery without angina pectoris
CPT/HCPCS: 93701; 96372; G0463; J3420

== ENCOUNTER → 2019-10-21 | Outpatient (CLI) | payer MEDICARE, MEDICAID ==
[~2019-10-21] MED LIST changes: -CYANOCOBALAMIN (B-12) 1000 MCG/1 ML VIAL IM ONE; -CYANOCOBALAMIN (B-12) 1000 MCG/1 ML VIAL ONE
[2019-10-21 10:21] VITALS: BP 112/57
--- NOTE | 2019-10-21 10:21 | NUR ---
Discharge Instructions See e-MAR for any mediations given with this visit. Patient education given on disease process. Patient verbalized understanding. Previous labs reviewed. Patient discharged in stable condition with after care instructions and follow up appointment. CARDIODYNAMICS COMPLETE 0 DISTRESS REVIEWED RESULTS WITH PATIENT 6 MWT COMPLETE WELL PT INCREASED 45 METERS
== END | disposition home or self-care (01) ==
LOC: CHF HDHVI 09:33
PROVIDERS: ATTEND Internal Medicine Cardiovascular Disease
DX: I73.9 Peripheral vascular disease, unspecified (principal); R53.83 Other fatigue
CPT/HCPCS: 93701; 94618; G0463

== ENCOUNTER → 2020-03-16 | Outpatient (CLI) | payer MEDICARE, MEDICAID | END | disposition home or self-care (01) | LOC: XY 10:17 | PROVIDERS: ATTEND Podiatrist | DX: I70.203 Unspecified atherosclerosis of native arteries of extremities, bilateral legs (principal) | CPT/HCPCS: 93925 ==

== ENCOUNTER → 2020-05-23 | Outpatient (CLI) | payer MEDICARE, MEDICAID ==
[~2020-05-23] MED LIST changes: -CYCL7.5T15 PO; +CYCL7.5T45 PO; +LISI-648 PO; -LISI10TA6 PO
== END | disposition home or self-care (01) ==
LOC: Rad HDHVI 09:12
PROVIDERS: ATTEND Internal Medicine Cardiovascular Disease
DX: I51.7 Cardiomegaly (principal); I31.3 Pericardial effusion (noninflammatory); I50.43 Acute on chronic combined systolic (congestive) and diastolic (congestive) heart failure; I42.0 Dilated cardiomyopathy; R42 Dizziness and giddiness
CPT/HCPCS: 93306

== ENCOUNTER 2020-09-21 22:09 | Inpatient (IN) | payer MEDICARE, MEDICAID ==
[~2020-09-21] VITALS: Ht 165.1 cm; Wt 109.1 kg
[~2020-09-21 22:09] MED LIST changes: -LISI-648 PO; +LISI-716 PO
[2020-09-21 22:40] VITALS: BP 65/36
[2020-09-21] MEDS ORDERED: PROPOFOL 100 ML IV ONE (22:40)
[2020-09-21] MEDS ORDERED: MIDAZOLAM HCL 5 MG/ML-1ML VIAL ONE (22:51)
[2020-09-21] MEDS ORDERED: MIDAZOLAM DRIP 50 mg/50mL 50 ML IV ONE (23:06)
[2020-09-21] MEDS ORDERED: NOREPINEPHRINE 8 MG/250ML KIT 250 ML IV ONE (23:07)
[2020-09-21] MEDS: MIDAZOLAM DRIP 50 mg/50mL 50 ML IV SCH (23:15)
[2020-09-21] MEDS ORDERED: fentaNYL Drip 2500mCg/250mlNS 250 ML IV ONE (23:21)
[2020-09-21] MEDS: NOREPINEPHRINE 8 MG/250ML KIT 250 ML IV SCH (23:51)
[2020-09-21] MEDS: fentaNYL Drip 2500mCg/250mlNS 250 ML IV SCH (23:52)
[2020-09-22 00:35] LABS: Basophils # (auto) 0 10 ^3/uL (0-0.2); Basophils % (auto) 0.2 % (0.0-2.0); Eosinophils # (auto) 0 10 ^3/uL (0-0.8); Lymphocytes # (auto) 0.7 10 ^3/uL (0.4-5.4); Nucleated Red Blood Cells % 0.2 %
[2020-09-22 00:37] LABS: Lymphocytes % (auto) 4.6 % (10.0-50.0); Mean Corpuscular Hgb Conc. 31.9 g/dL (32.0-36.0); Mean Corpuscular Volume 72.1 fL (80.0-100.0); Monocytes # (auto) 1.1 10 ^3/uL (0-1.3); Monocytes % (auto) 7.1 % (0.0-12.0); Neutrophils # (auto) 14.1 10 ^3/uL (1.6-8.6); Neutrophils % (auto) 88.1 % (37.0-80.0); Red Blood Cells 6.94 10^6/uL (4.0-5.20); Red Cell Distribution Width 18.1 % (11.8-14.3)
[2020-09-22] MEDS: MIDAZOLAM DRIP 50 mg/50mL 50 ML IV SCH (00:45)
[2020-09-22 00:48] LABS: Urine Amorphous Crystal FEW /hpf (None Seen); Urine Bacteria FEW /hpf (None Seen); Urine Blood 2+ /uL (Negative); Urine Hyaline Cast FEW /lpf (0 - 2); Urine Specific Gravity 1.018 (1.001-1.035); Urine WBC 3 /hpf (0 - 5)
[2020-09-22 00:49] LABS: BUN/Creatinine Ratio 15.1; Calcium 8.6 mg/dL (8.5-10.1); INR 1.1 (0.9-1.15); Potassium 4.1 mmol/L (3.5-5.1)
[2020-09-22 00:52] LABS: Bilirubin, Total 0.6 mg/dL (0.2-1.0); Total Protein 8.6 g/dL (6.4-8.2)
[2020-09-22] MEDS ORDERED: PIPERACILLIN-TAZOB 3.375GM 100 ML IV ONE (01:00)
[2020-09-22] MEDS ORDERED: VANCOMYCIN 1GM/250ML 250 ML IV ONE (01:00)
[2020-09-22 01:50] LABS: Lactic Acid w/Reflex 2.5 mmol/L (0.4-2.0)
[2020-09-22 02:46] VITALS: BP 93/62
[2020-09-22] MEDS: fentaNYL Drip 2500mCg/250mlNS 250 ML IV SCH (04:57)
[2020-09-22 06:00] VITALS: BP 107/52
[2020-09-22] MEDS ORDERED: ALBUTEROL SULF HFA 90MCG INH 200DOSE IN PRN (06:45)
[2020-09-22] MEDS ORDERED: ACETAMINOPHEN 650 MG RECT SUPP PR PRN (06:45)
[2020-09-22] MEDS ORDERED: DEXTROSE (50%) 50ML SYRG IV PRN (06:45)
[2020-09-22] MEDS ORDERED: NITROGLYCERIN 0.4 MG SL TAB SL PRN (06:45)
[2020-09-22 08:31] LABS: Basophils # (auto) 0.1 10 ^3/uL (0-0.2); Basophils % (auto) 0.4 % (0.0-2.0); Eosinophils # (auto) 0 10 ^3/uL (0-0.8); Nucleated Red Blood Cells % 0.3 %
[2020-09-22 08:33] LABS: Hematocrit 44.9 % (36.0-46.0); Hemoglobin 13.7 g/dL (12.2-16.2); Lymphocytes # (auto) 1.2 10 ^3/uL (0.4-5.4); Lymphocytes % (auto) 6.9 % (10.0-50.0); Mean Corpuscular Hgb Conc. 30.6 g/dL (32.0-36.0); Mean Corpuscular Volume 75.2 fL (80.0-100.0); Monocytes # (auto) 1.2 10 ^3/uL (0-1.3); Monocytes % (auto) 6.8 % (0.0-12.0); Neutrophils # (auto) 14.8 10 ^3/uL (1.6-8.6); Neutrophils % (auto) 85.9 % (37.0-80.0); Red Blood Cells 5.97 10^6/uL (4.0-5.20); Red Cell Distribution Width 18.9 % (11.8-14.3); White Blood Cell 17.3 10^3/uL (4.4-10.8)
[2020-09-22] MEDS: ACCU-CHEK COMFORT CURVE STRIP VI SCH ×4 (08:58→22:00)
[2020-09-22] MEDS: InsuLIN REG 1unit/0.01ml Soln (100units/ml) SC SCH ×4 (09:17→22:00)
[2020-09-22 09:36] VITALS: BP 98/40
[2020-09-22] MEDS ORDERED: DOXYCYCLINE 100MG/250ML 250 ML IV SCH (10:00)
[2020-09-22 11:36] LABS: Albumin 2.4 g/dL (3.4-5.0); Calcium 8.2 mg/dL (8.5-10.1); Magnesium 2.8 mg/dL (1.6-2.6); Potassium 4.4 mmol/L (3.5-5.1)
[2020-09-22 11:40] LABS: BUN/Creatinine Ratio 10.8; Total Protein 7.8 g/dL (6.4-8.2)
[2020-09-22] MEDS: BUDESONIDE (INHALATION) 180 MCG IH IN SCH (11:58)
[2020-09-22] MEDS: CHOLECALCIFEROL (VITD3) 2,000 UNIT CAP/TAB PO SCH (12:02)
[2020-09-22] MEDS: ASCORBIC ACID 1,000 MG TAB PO SCH (12:02)
[2020-09-22] MEDS ORDERED: BUMETANIDE 2.5mg/10ml (0.25 mg/ml) INJ IV ONE (12:15)
[2020-09-22] MEDS: FAMOTIDINE (10MG/ML) 2ML VL IV SCH (13:33)
[2020-09-22] MEDS: DexAMETHasone SOD PHOS 10MG/1ML VIAL INJ IV SCH (13:33)
[2020-09-22] MEDS: HEPARIN SODIUM (PORCINE) 5000 UNITS/ML 1ML VIAL SC SCH ×2 (13:36→22:00)
[2020-09-22] MEDS: SODIUM BICARBONATE 50ML VIAL 150 ML in D5W 5% 1,000 ML IV SCH ×2 (13:58→23:45)
[2020-09-22 14:00] VITALS: BP 95/39
[2020-09-22] MEDS: SODIUM CHLOR 0.9% PF (SALINE LOCK) 10ML VIAL/SYR IV SCH ×3 (14:33→22:00)
[2020-09-22] MEDS: PIPERACILLIN-TAZOB 2.25GM 50 ML IV SCH ×2 (18:00→18:11)
[2020-09-22 19:35] VITALS: BP 129/62
[2020-09-22 21:56] VITALS: BP 167/75
[2020-09-22] MEDS: NOREPINEPHRINE 8 MG/250ML KIT 250 ML IV SCH (23:45)
[2020-09-23 02:45] VITALS: BP 180/76
[2020-09-23] MEDS: SODIUM CHLOR 0.9% PF (SALINE LOCK) 10ML VIAL/SYR IV SCH ×5 (06:20→21:29)
[2020-09-23] MEDS: InsuLIN REG 1unit/0.01ml Soln (100units/ml) SC SCH ×4 (06:20→22:07)
[2020-09-23] MEDS: ACCU-CHEK COMFORT CURVE STRIP VI SCH ×4 (06:23→22:07)
[2020-09-23 07:05] VITALS: BP 172/69
[2020-09-23] MEDS: BUDESONIDE (INHALATION) 180 MCG IH IN SCH ×2 (07:43→10:00)
[2020-09-23 07:49] LABS: Basophils # (auto) 0 10 ^3/uL (0-0.2); Eosinophils # (auto) 0 10 ^3/uL (0-0.8); Lymphocytes # (auto) 0.4 10 ^3/uL (0.4-5.4); Monocytes # (auto) 0.9 10 ^3/uL (0-1.3)
[2020-09-23 07:51] LABS: Basophils % (auto) 0.2 % (0.0-2.0); Hematocrit 45.5 % (36.0-46.0); Hemoglobin 14.8 g/dL (12.2-16.2); Lymphocytes % (auto) 2.4 % (10.0-50.0); Mean Corpuscular Hemoglobin 23.3 pg (28.0-32.0); Mean Corpuscular Hgb Conc. 32.6 g/dL (32.0-36.0); Mean Corpuscular Volume 71.2 fL (80.0-100.0); Monocytes % (auto) 6.2 % (0.0-12.0); Neutrophils # (auto) 13.6 10 ^3/uL (1.6-8.6); Neutrophils % (auto) 91.2 % (37.0-80.0); Nucleated Red Blood Cells % 0.2 %; Red Blood Cells 6.38 10^6/uL (4.0-5.20); White Blood Cell 14.9 10^3/uL (4.4-10.8)
[2020-09-23 08:20] LABS: Potassium 4.5 mmol/L (3.5-5.1)
[2020-09-23 08:33] LABS: Albumin 2.2 g/dL (3.4-5.0); Bilirubin, Total 2.4 mg/dL (0.2-1.0); Calcium 8.7 mg/dL (8.5-10.1); Total Protein 7.6 g/dL (6.4-8.2)
[2020-09-23] MEDS: DexAMETHasone SOD PHOS 10MG/1ML VIAL INJ IV SCH (09:56)
[2020-09-23] MEDS: ASCORBIC ACID 1,000 MG TAB PO SCH (09:57)
[2020-09-23] MEDS: FAMOTIDINE (10MG/ML) 2ML VL IV SCH (09:57)
[2020-09-23] MEDS: CHOLECALCIFEROL (VITD3) 2,000 UNIT CAP/TAB PO SCH (09:57)
[2020-09-23] MEDS: HEPARIN SODIUM (PORCINE) 5000 UNITS/ML 1ML VIAL SC SCH ×2 (10:04→22:09)
[2020-09-23] MEDS: SODIUM BICARBONATE 50ML VIAL 150 ML in D5W 5% 1,000 ML IV SCH ×2 (11:16→22:45)
[2020-09-23] MEDS: MIDAZOLAM DRIP 50 mg/50mL 50 ML IV SCH (13:34)
[2020-09-23 19:00] VITALS: BP 101/61
[2020-09-23] MEDS: fentaNYL Drip 2500mCg/250mlNS 250 ML IV SCH ×2 (22:16→22:50)
[2020-09-23] MEDS: ALBUTEROL SULF 2.5 MG/0.5ML(0.5%) NEB SOLN NEB SCH (22:18)
[2020-09-23] MEDS: BUDESONIDE (INHALATION) 0.5 MG/2 ML NEB NEB SCH (22:18)
[2020-09-23 22:30] VITALS: BP 99/61
[2020-09-23] MEDS: NOREPINEPHRINE 8 MG/250ML KIT 250 ML IV SCH (23:45)
[2020-09-24 02:30] VITALS: BP 112/63
[2020-09-24 04:57] LABS: Basophils # (auto) 0 10 ^3/uL (0-0.2); Eosinophils # (auto) 0 10 ^3/uL (0-0.8); Monocytes # (auto) 1.7 10 ^3/uL (0-1.3); Neutrophils # (auto) 14.2 10 ^3/uL (1.6-8.6)
[2020-09-24 04:59] LABS: Basophils % (auto) 0.2 % (0.0-2.0); Hemoglobin 14.6 g/dL (12.2-16.2); Lymphocytes # (auto) 0.4 10 ^3/uL (0.4-5.4); Lymphocytes % (auto) 2.4 % (10.0-50.0); Mean Corpuscular Hemoglobin 23.3 pg (28.0-32.0); Mean Corpuscular Hgb Conc. 33.1 g/dL (32.0-36.0); Mean Corpuscular Volume 70.2 fL (80.0-100.0); Monocytes % (auto) 10.2 % (0.0-12.0); Neutrophils % (auto) 87.2 % (37.0-80.0); Nucleated Red Blood Cells % 0.6 %; Red Blood Cells 6.26 10^6/uL (4.0-5.20); Red Cell Distribution Width 17.6 % (11.8-14.3); White Blood Cell 16.3 10^3/uL (4.4-10.8)
[2020-09-24 05:22] LABS: Albumin 2.1 g/dL (3.4-5.0); Calcium 9.2 mg/dL (8.5-10.1); Potassium 4.4 mmol/L (3.5-5.1)
[2020-09-24 05:25] LABS: BUN/Creatinine Ratio 11.7; Bilirubin, Total 1.6 mg/dL (0.2-1.0); Total Protein 7.5 g/dL (6.4-8.2)
[2020-09-24] MEDS: InsuLIN REG 1unit/0.01ml Soln (100units/ml) SC SCH ×4 (06:03→22:36)
[2020-09-24] MEDS: SODIUM CHLOR 0.9% PF (SALINE LOCK) 10ML VIAL/SYR IV SCH ×5 (06:06→22:23)
[2020-09-24] MEDS: ACCU-CHEK COMFORT CURVE STRIP VI SCH ×4 (06:08→22:36)
[2020-09-24 06:20] VITALS: BP 149/65
[2020-09-24] MEDS: ALBUTEROL SULF 2.5 MG/0.5ML(0.5%) NEB SOLN NEB SCH ×3 (06:20→22:00)
[2020-09-24] MEDS: BUDESONIDE (INHALATION) 0.5 MG/2 ML NEB NEB SCH ×2 (06:20→22:00)
[2020-09-24] MEDS: ASCORBIC ACID 1,000 MG TAB PO SCH (10:20)
[2020-09-24] MEDS: DexAMETHasone SOD PHOS 10MG/1ML VIAL INJ IV SCH (10:20)
[2020-09-24] MEDS: INSULIN LANTUS (GLARGINE) 1 /0.01ml (100units/ml) SC SCH (10:20)
[2020-09-24] MEDS: CHOLECALCIFEROL (VITD3) 2,000 UNIT CAP/TAB PO SCH (10:20)
[2020-09-24] MEDS: HEPARIN SODIUM (PORCINE) 5000 UNITS/ML 1ML VIAL SC SCH ×2 (10:22→22:37)
[2020-09-24] MEDS: SODIUM BICARBONATE 50ML VIAL 150 ML in D5W 5% 1,000 ML IV SCH ×2 (10:25→21:45)
[2020-09-24] MEDS: MIDAZOLAM DRIP 50 mg/50mL 50 ML IV SCH ×2 (11:25→17:43)
[2020-09-24] MEDS: fentaNYL Drip 2500mCg/250mlNS 250 ML IV SCH ×2 (11:26→21:55)
[2020-09-24] MEDS ORDERED: Glucerna 1.2 Cal 1Liter BOTTLE GT SCH (11:45)
[2020-09-24] MEDS ORDERED: MEROPENEM 500MG IVPB 50 ML IV SCH (12:19)
[2020-09-24] MEDS: LINEZOLID 600MG/300ML 300 ML IV SCH ×2 (14:00→22:45)
[2020-09-24 14:10] VITALS: BP 109/54
[2020-09-24] MEDS: MEROPENEM 500MG IVPB 50 ML IV SCH (16:14)
[2020-09-24 18:10] VITALS: BP 110/55
[2020-09-24 22:55] VITALS: BP 114/52
[2020-09-24] MEDS: NOREPINEPHRINE 8 MG/250ML KIT 250 ML IV SCH (23:45)
[2020-09-25] VITALS (49 sets, daily range): BP systolic 77–205; BP diastolic 45–89
[2020-09-25] MEDS: MIDAZOLAM DRIP 50 mg/50mL 50 ML IV SCH ×2 (02:25→09:49)
[2020-09-25] MEDS: SODIUM CHLOR 0.9% PF (SALINE LOCK) 10ML VIAL/SYR IV SCH ×5 (05:55→21:37)
[2020-09-25 06:01] LABS: Basophils # (auto) 0 10 ^3/uL (0-0.2); Eosinophils # (auto) 0 10 ^3/uL (0-0.8); Monocytes # (auto) 1.7 10 ^3/uL (0-1.3); Monocytes % (auto) 11.9 % (0.0-12.0)
[2020-09-25 06:03] LABS: Basophils % (auto) 0.1 % (0.0-2.0); Hematocrit 43.1 % (36.0-46.0); Hemoglobin 14.1 g/dL (12.2-16.2); Lymphocytes # (auto) 0.8 10 ^3/uL (0.4-5.4); Lymphocytes % (auto) 5.5 % (10.0-50.0); Mean Corpuscular Hgb Conc. 32.7 g/dL (32.0-36.0); Mean Corpuscular Volume 70.4 fL (80.0-100.0); Neutrophils # (auto) 11.6 10 ^3/uL (1.6-8.6); Neutrophils % (auto) 82.5 % (37.0-80.0); Nucleated Red Blood Cells % 0.4 %; Red Blood Cells 6.12 10^6/uL (4.0-5.20); Red Cell Distribution Width 17.1 % (11.8-14.3); White Blood Cell 14.1 10^3/uL (4.4-10.8)
[2020-09-25 06:20] LABS: BUN/Creatinine Ratio 13.2; Calcium 8.6 mg/dL (8.5-10.1); Potassium 4.4 mmol/L (3.5-5.1)
[2020-09-25] MEDS: ACCU-CHEK COMFORT CURVE STRIP VI SCH ×4 (07:07→22:23)
[2020-09-25] MEDS: InsuLIN REG 1unit/0.01ml Soln (100units/ml) SC SCH ×4 (07:07→22:00)
[2020-09-25] MEDS: BUDESONIDE (INHALATION) 0.5 MG/2 ML NEB NEB SCH ×2 (07:35→21:30)
[2020-09-25] MEDS: ALBUTEROL SULF 2.5 MG/0.5ML(0.5%) NEB SOLN NEB SCH ×3 (07:36→21:30)
[2020-09-25] MEDS: ASCORBIC ACID 1,000 MG TAB PO SCH (09:41)
[2020-09-25] MEDS: FAMOTIDINE (10MG/ML) 2ML VL IV SCH (09:41)
[2020-09-25] MEDS: DexAMETHasone SOD PHOS 10MG/1ML VIAL INJ IV SCH (09:41)
[2020-09-25] MEDS: CHOLECALCIFEROL (VITD3) 2,000 UNIT CAP/TAB PO SCH (09:41)
[2020-09-25] MEDS: SODIUM BICARBONATE 50ML VIAL 150 ML in D5W 5% 1,000 ML IV SCH (09:41)
[2020-09-25] MEDS: HEPARIN SODIUM (PORCINE) 5000 UNITS/ML 1ML VIAL SC SCH ×2 (09:42→21:36)
[2020-09-25] MEDS: INSULIN LANTUS (GLARGINE) 1 /0.01ml (100units/ml) SC SCH (09:42)
[2020-09-25] MEDS: fentaNYL Drip 2500mCg/250mlNS 250 ML IV SCH (09:48)
[2020-09-25] MEDS: LINEZOLID 600MG/300ML 300 ML IV SCH ×2 (09:48→21:36)
[2020-09-25] MEDS ORDERED: BUMETANIDE 2.5mg/10ml (0.25 mg/ml) INJ IV ONE (11:30)
[2020-09-25] MEDS ORDERED: DOPamine 1600MCG/ML D5W 250 ML IV SCH (11:30)
[2020-09-25] MEDS: MEROPENEM 500MG IVPB 50 ML IV SCH (13:39)
[2020-09-25] MEDS: SILDENAFIL CITRATE 20 MG TAB PO SCH ×2 (15:45→20:00)
[2020-09-25] MEDS: DOPamine 1600MCG/ML D5W 250 ML IV SCH (16:30)
[2020-09-25] MEDS: NOREPINEPHRINE 8 MG/250ML KIT 250 ML IV SCH (22:37)
[2020-09-26] VITALS (89 sets, daily range): BP systolic 84–166; BP diastolic 40–139
[2020-09-26] MEDS: DOPamine 1600MCG/ML D5W 250 ML IV SCH ×2 (03:49→15:08)
[2020-09-26 04:48] LABS: Hemoglobin 13.8 g/dL (12.2-16.2)
[2020-09-26 04:54] LABS: Hematocrit 42.8 % (36.0-46.0); Mean Corpuscular Hemoglobin 22.7 pg (28.0-32.0); Mean Corpuscular Hgb Conc. 32.3 g/dL (32.0-36.0); Mean Corpuscular Volume 70.3 fL (80.0-100.0); Red Blood Cells 6.09 10^6/uL (4.0-5.20); Red Cell Distribution Width 17.5 % (11.8-14.3); White Blood Cell 11.8 10^3/uL (4.4-10.8)
[2020-09-26 05:04] LABS: Basophils % (manual) 0 (0.0-2.0); Blast Cells 0; Eosinophils % (manual) 0 (0-7); Metamyelocytes % 0; Myelocytes % 0; Promyelocytes % 0; Reactive Lymphocytes 0
[2020-09-26 05:07] LABS: Potassium 4.5 mmol/L (3.5-5.1)
[2020-09-26 05:13] LABS: Albumin 2.2 g/dL (3.4-5.0); BUN/Creatinine Ratio 16.1
[2020-09-26 05:15] LABS: Bilirubin, Total 0.7 mg/dL (0.2-1.0)
[2020-09-26] MEDS: InsuLIN REG 1unit/0.01ml Soln (100units/ml) SC SCH ×4 (05:24→20:00)
[2020-09-26] MEDS: ACCU-CHEK COMFORT CURVE STRIP VI SCH ×4 (05:24→20:00)
[2020-09-26] MEDS: SODIUM CHLOR 0.9% PF (SALINE LOCK) 10ML VIAL/SYR IV SCH ×5 (05:24→22:08)
[2020-09-26 05:29] LABS: Band Neutrophils % (manual) 1; Lymphocytes % (manual) 15 (10.0-50.0); Monocytes % (manual) 13 (0-12)
[2020-09-26 05:45] LABS: CRP High Sensitivity 3.26 mg/dL (< 0.3)
[2020-09-26] MEDS: ALBUTEROL SULF 2.5 MG/0.5ML(0.5%) NEB SOLN NEB SCH ×3 (06:00→17:45)
[2020-09-26] MEDS: SILDENAFIL CITRATE 20 MG TAB PO SCH ×3 (07:57→20:00)
[2020-09-26] MEDS: MIDAZOLAM DRIP 50 mg/50mL 50 ML IV SCH ×2 (08:00→22:26)
[2020-09-26] MEDS: INSULIN LANTUS (GLARGINE) 1 /0.01ml (100units/ml) SC SCH (09:53)
[2020-09-26] MEDS: ASCORBIC ACID 1,000 MG TAB PO SCH (09:55)
[2020-09-26] MEDS: CHOLECALCIFEROL (VITD3) 2,000 UNIT CAP/TAB PO SCH (09:55)
[2020-09-26] MEDS: HEPARIN SODIUM (PORCINE) 5000 UNITS/ML 1ML VIAL SC SCH ×2 (09:55→22:09)
[2020-09-26] MEDS: LINEZOLID 600MG/300ML 300 ML IV SCH ×2 (09:56→22:12)
[2020-09-26] MEDS ORDERED: INSULIN LANTUS (GLARGINE) 1 /0.01ml (100units/ml) SC SCH (10:00)
[2020-09-26] MEDS ORDERED: DexAMETHasone SOD PHOS 10MG/1ML VIAL INJ IV SCH ×2 (10:00)
[2020-09-26] MEDS: BUDESONIDE (INHALATION) 0.5 MG/2 ML NEB NEB SCH ×2 (10:27→17:45)
[2020-09-26] MEDS: MEROPENEM 500MG IVPB 50 ML IV SCH (12:09)
[2020-09-26] MEDS: SODIUM CHLORIDE 0.9% 1,000 ML IV SCH ×2 (13:45→20:45)
[2020-09-26] MEDS: NOREPINEPHRINE 8 MG/250ML KIT 250 ML IV SCH (23:45)
[2020-09-27] VITALS (95 sets, daily range): BP systolic 77–192; BP diastolic 36–73
[2020-09-27] MEDS: ACCU-CHEK COMFORT CURVE STRIP VI SCH ×5 (00:09→18:12)
[2020-09-27] MEDS: DOPamine 1600MCG/ML D5W 250 ML IV SCH ×2 (02:27→13:46)
[2020-09-27] MEDS: InsuLIN REG 1unit/0.01ml Soln (100units/ml) SC SCH ×5 (04:00→18:11)
[2020-09-27] MEDS: SODIUM CHLORIDE 0.9% 1,000 ML IV SCH ×2 (04:45→12:45)
[2020-09-27] MEDS: fentaNYL Drip 2500mCg/250mlNS 250 ML IV SCH ×2 (04:45→23:45)
[2020-09-27 05:39] LABS: Hematocrit 43.5 % (36.0-46.0); Hemoglobin 14.3 g/dL (12.2-16.2); Mean Corpuscular Hgb Conc. 32.8 g/dL (32.0-36.0); Mean Corpuscular Volume 70.1 fL (80.0-100.0); Red Blood Cells 6.21 10^6/uL (4.0-5.20); Red Cell Distribution Width 17.2 % (11.8-14.3); White Blood Cell 12.3 10^3/uL (4.4-10.8)
[2020-09-27] MEDS: ALBUTEROL SULF 2.5 MG/0.5ML(0.5%) NEB SOLN NEB SCH ×3 (06:00→21:35)
[2020-09-27 06:14] LABS: Basophils % (manual) 0 (0.0-2.0); Blast Cells 0; Promyelocytes % 0; Reactive Lymphocytes 0
[2020-09-27] MEDS: SODIUM CHLOR 0.9% PF (SALINE LOCK) 10ML VIAL/SYR IV SCH ×5 (06:23→22:15)
[2020-09-27 06:37] LABS: Calcium 8.5 mg/dL (8.5-10.1); Potassium 3.9 mmol/L (3.5-5.1)
[2020-09-27] MEDS: SILDENAFIL CITRATE 20 MG TAB PO SCH ×3 (08:00→20:00)
[2020-09-27 09:14] LABS: Band Neutrophils % (manual) 3; Eosinophils % (manual) 1 (0-7); Lymphocytes % (manual) 13 (10.0-50.0); Metamyelocytes % 2; Monocytes % (manual) 5 (0-12); Myelocytes % 2
[2020-09-27] MEDS: BUDESONIDE (INHALATION) 0.5 MG/2 ML NEB NEB SCH ×2 (09:40→21:35)
[2020-09-27] MEDS: LINEZOLID 600MG/300ML 300 ML IV SCH ×2 (10:00→22:16)
[2020-09-27] MEDS: HEPARIN SODIUM (PORCINE) 5000 UNITS/ML 1ML VIAL SC SCH ×2 (10:00→22:17)
[2020-09-27] MEDS: INSULIN LANTUS (GLARGINE) 1 /0.01ml (100units/ml) SC SCH (10:00)
[2020-09-27] MEDS: CHOLECALCIFEROL (VITD3) 2,000 UNIT CAP/TAB PO SCH (10:00)
[2020-09-27] MEDS: ASCORBIC ACID 1,000 MG TAB PO SCH (10:00)
[2020-09-27] MEDS: FAMOTIDINE (10MG/ML) 2ML VL IV SCH (10:00)
[2020-09-27] MEDS: MEROPENEM 500MG IVPB 50 ML IV SCH (12:00)
[2020-09-27] MEDS ORDERED: SODIUM CHLORIDE 0.9% 1,000 ML IV SCH (15:00)
[2020-09-27] MEDS ORDERED: DEXTROSE (50%) 50ML SYRG IV PRN (15:15)
[2020-09-27] MEDS ORDERED: Glucerna 1.2 Cal 1Liter BOTTLE GT SCH (15:15)
[2020-09-27] MEDS: MIDAZOLAM DRIP 50 mg/50mL 50 ML IV SCH (23:15)
[2020-09-27] MEDS: NOREPINEPHRINE 8 MG/250ML KIT 250 ML IV SCH (23:45)
[2020-09-28] VITALS (99 sets, daily range): BP systolic 80–155; BP diastolic 39–89
[2020-09-28] MEDS: InsuLIN REG 1unit/0.01ml Soln (100units/ml) SC SCH ×5 (06:00→23:38)
[2020-09-28] MEDS: SODIUM CHLOR 0.9% PF (SALINE LOCK) 10ML VIAL/SYR IV SCH ×5 (06:00→21:41)
[2020-09-28] MEDS: ACCU-CHEK COMFORT CURVE STRIP VI SCH ×5 (06:00→23:38)
[2020-09-28] MEDS: BUDESONIDE (INHALATION) 0.5 MG/2 ML NEB NEB SCH ×2 (07:04→22:25)
[2020-09-28] MEDS: ALBUTEROL SULF 2.5 MG/0.5ML(0.5%) NEB SOLN NEB SCH ×3 (07:04→22:25)
[2020-09-28] MEDS: SILDENAFIL CITRATE 20 MG TAB PO SCH ×3 (08:00→20:00)
[2020-09-28] MEDS: CHOLECALCIFEROL (VITD3) 2,000 UNIT CAP/TAB PO SCH (10:00)
[2020-09-28] MEDS: HEPARIN SODIUM (PORCINE) 5000 UNITS/ML 1ML VIAL SC SCH ×2 (10:00→22:00)
[2020-09-28] MEDS: LINEZOLID 600MG/300ML 300 ML IV SCH ×2 (10:00→21:45)
[2020-09-28] MEDS: INSULIN LANTUS (GLARGINE) 1 /0.01ml (100units/ml) SC SCH (10:00)
[2020-09-28] MEDS: ASCORBIC ACID 1,000 MG TAB PO SCH (10:00)
[2020-09-28] MEDS: MEROPENEM 500MG IVPB 50 ML IV SCH (12:00)
[2020-09-28 12:01] LABS: Mean Corpuscular Hgb Conc. 32.5 g/dL (32.0-36.0)
[2020-09-28 12:03] LABS: Hematocrit 44.6 % (36.0-46.0); Hemoglobin 14.5 g/dL (12.2-16.2); Mean Corpuscular Volume 70.8 fL (80.0-100.0); Red Cell Distribution Width 17.4 % (11.8-14.3); White Blood Cell 14.1 10^3/uL (4.4-10.8)
[2020-09-28 12:12] LABS: Basophils % (manual) 0 (0.0-2.0); Blast Cells 0; Eosinophils % (manual) 0 (0-7); Promyelocytes % 0; Reactive Lymphocytes 0
[2020-09-28 12:29] LABS: Calcium 8.5 mg/dL (8.5-10.1)
[2020-09-28 12:32] LABS: Bilirubin, Total 0.6 mg/dL (0.2-1.0); Total Protein 6.4 g/dL (6.4-8.2)
[2020-09-28] MEDS ORDERED: BUMETANIDE 2.5mg/10ml (0.25 mg/ml) INJ IV ONE (13:00)
[2020-09-28 14:11] LABS: Band Neutrophils % (manual) 1; Lymphocytes % (manual) 11 (10.0-50.0); Metamyelocytes % 3; Monocytes % (manual) 7 (0-12); Myelocytes % 2
[2020-09-28] MEDS: MIDAZOLAM DRIP 50 mg/50mL 50 ML IV SCH (23:15)
[2020-09-28] MEDS: fentaNYL Drip 2500mCg/250mlNS 250 ML IV SCH (23:37)
[2020-09-28] MEDS: NOREPINEPHRINE 8 MG/250ML KIT 250 ML IV SCH (23:37)
[2020-09-29] VITALS (84 sets, daily range): BP systolic 92–171; BP diastolic 48–90
[2020-09-29 05:24] LABS: Hematocrit 46.5 % (36.0-46.0); Hemoglobin 14.9 g/dL (12.2-16.2)
[2020-09-29 05:30] LABS: Red Blood Cells 6.45 10^6/uL (4.0-5.20); Red Cell Distribution Width 17.9 % (11.8-14.3); White Blood Cell 10.1 10^3/uL (4.4-10.8)
[2020-09-29 05:39] LABS: Albumin 1.9 g/dL (3.4-5.0); Potassium 4.7 mmol/L (3.5-5.1)
[2020-09-29] MEDS: SODIUM CHLOR 0.9% PF (SALINE LOCK) 10ML VIAL/SYR IV SCH ×5 (05:40→21:03)
[2020-09-29] MEDS: ACCU-CHEK COMFORT CURVE STRIP VI SCH ×4 (05:40→23:56)
[2020-09-29] MEDS: InsuLIN REG 1unit/0.01ml Soln (100units/ml) SC SCH ×4 (05:40→23:55)
[2020-09-29 05:43] LABS: BUN/Creatinine Ratio 24.8; Bilirubin, Total 0.7 mg/dL (0.2-1.0); Calcium 8.5 mg/dL (8.5-10.1); Total Protein 6.5 g/dL (6.4-8.2)
[2020-09-29] MEDS: BUDESONIDE (INHALATION) 0.5 MG/2 ML NEB NEB SCH ×2 (06:11→18:45)
[2020-09-29] MEDS: ALBUTEROL SULF 2.5 MG/0.5ML(0.5%) NEB SOLN NEB SCH ×3 (06:11→18:45)
[2020-09-29 06:14] LABS: Basophils % (manual) 0 (0.0-2.0); Blast Cells 0; Eosinophils % (manual) 0 (0-7); Reactive Lymphocytes 0
[2020-09-29 09:18] LABS: Band Neutrophils % (manual) 2; Lymphocytes % (manual) 24 (10.0-50.0); Metamyelocytes % 3; Monocytes % (manual) 6 (0-12); Myelocytes % 3; Promyelocytes % 1
[2020-09-29] MEDS: SILDENAFIL CITRATE 20 MG TAB PO SCH ×3 (09:30→21:02)
[2020-09-29] MEDS: CHOLECALCIFEROL (VITD3) 2,000 UNIT CAP/TAB PO SCH (10:00)
[2020-09-29] MEDS: FAMOTIDINE (10MG/ML) 2ML VL IV SCH (10:00)
[2020-09-29] MEDS: LINEZOLID 600MG/300ML 300 ML IV SCH (10:00)
[2020-09-29] MEDS: INSULIN LANTUS (GLARGINE) 1 /0.01ml (100units/ml) SC SCH (10:00)
[2020-09-29] MEDS: ASCORBIC ACID 1,000 MG TAB PO SCH (10:00)
[2020-09-29] MEDS: HEPARIN SODIUM (PORCINE) 5000 UNITS/ML 1ML VIAL SC SCH ×2 (10:00→21:09)
[2020-09-29 15:36] LABS: BUN/Creatinine Ratio 25.6
[2020-09-29 15:51] LABS: White Blood Cell 15.6 10^3/uL (4.4-10.8)
[2020-09-29 15:52] LABS: Basophils # (auto) 0.1 10 ^3/uL (0-0.2); Basophils % (auto) 0.5 % (0.0-2.0); Eosinophils # (auto) 0.1 10 ^3/uL (0-0.8); Eosinophils % (auto) 0.6 % (0.0-7.0); Hematocrit 43.6 % (36.0-46.0); Hemoglobin 14.2 g/dL (12.2-16.2); Lymphocytes # (auto) 1.3 10 ^3/uL (0.4-5.4); Lymphocytes % (auto) 8.4 % (10.0-50.0); Mean Corpuscular Hgb Conc. 32.6 g/dL (32.0-36.0); Mean Corpuscular Volume 70.7 fL (80.0-100.0); Monocytes # (auto) 1.6 10 ^3/uL (0-1.3); Monocytes % (auto) 10.6 % (0.0-12.0); Neutrophils # (auto) 12.5 10 ^3/uL (1.6-8.6); Neutrophils % (auto) 79.9 % (37.0-80.0); Red Blood Cells 6.17 10^6/uL (4.0-5.20); Red Cell Distribution Width 17.7 % (11.8-14.3)
[2020-09-29] MEDS: fentaNYL Drip 2500mCg/250mlNS 250 ML IV SCH (23:10)
[2020-09-29] MEDS: MIDAZOLAM DRIP 50 mg/50mL 50 ML IV SCH (23:10)
[2020-09-29] MEDS: NOREPINEPHRINE 8 MG/250ML KIT 250 ML IV SCH (23:45)
[2020-09-30] VITALS (86 sets, daily range): BP systolic 82–177; BP diastolic 34–78
[2020-09-30 05:13] LABS: Basophils # (auto) 0.1 10 ^3/uL (0-0.2); Hemoglobin 13.3 g/dL (12.2-16.2); Lymphocytes # (auto) 1.5 10 ^3/uL (0.4-5.4)
[2020-09-30 05:16] LABS: Basophils % (auto) 0.3 % (0.0-2.0); Eosinophils # (auto) 0.1 10 ^3/uL (0-0.8); Eosinophils % (auto) 0.8 % (0.0-7.0); Hematocrit 41.6 % (36.0-46.0); Lymphocytes % (auto) 10.1 % (10.0-50.0); Mean Corpuscular Hemoglobin 22.8 pg (28.0-32.0); Mean Corpuscular Volume 71.3 fL (80.0-100.0); Monocytes # (auto) 1.7 10 ^3/uL (0-1.3); Monocytes % (auto) 11.7 % (0.0-12.0); Neutrophils # (auto) 11.3 10 ^3/uL (1.6-8.6); Neutrophils % (auto) 77.1 % (37.0-80.0); Nucleated Red Blood Cells % 0.1 %; Red Blood Cells 5.84 10^6/uL (4.0-5.20); Red Cell Distribution Width 17.6 % (11.8-14.3); White Blood Cell 14.6 10^3/uL (4.4-10.8)
[2020-09-30 05:34] LABS: Calcium 9.1 mg/dL (8.5-10.1); Potassium 4.5 mmol/L (3.5-5.1)
[2020-09-30] MEDS: ACCU-CHEK COMFORT CURVE STRIP VI SCH ×4 (05:37→23:11)
[2020-09-30] MEDS: SODIUM CHLOR 0.9% PF (SALINE LOCK) 10ML VIAL/SYR IV SCH ×4 (05:37→21:36)
[2020-09-30 05:39] LABS: BUN/Creatinine Ratio 26.3; Bilirubin, Total 0.8 mg/dL (0.2-1.0); Total Protein 6.5 g/dL (6.4-8.2)
[2020-09-30] MEDS: InsuLIN REG 1unit/0.01ml Soln (100units/ml) SC SCH ×4 (05:40→23:10)
[2020-09-30 05:49] LABS: BUN/Creatinine Ratio 25.7; Calcium 9.1 mg/dL (8.5-10.1); Potassium 4.5 mmol/L (3.5-5.1)
[2020-09-30] MEDS: ALBUTEROL SULF 2.5 MG/0.5ML(0.5%) NEB SOLN NEB SCH ×3 (07:28→18:37)
[2020-09-30] MEDS: BUDESONIDE (INHALATION) 0.5 MG/2 ML NEB NEB SCH ×2 (07:28→18:37)
[2020-09-30] MEDS: PROPOFOL 100 ML IV SCH ×2 (09:45→20:00)
[2020-09-30] MEDS: SILDENAFIL CITRATE 20 MG TAB PO SCH ×3 (09:57→19:53)
[2020-09-30] MEDS: ASCORBIC ACID 1,000 MG TAB PO SCH (09:57)
[2020-09-30] MEDS: CHOLECALCIFEROL (VITD3) 2,000 UNIT CAP/TAB PO SCH (09:57)
[2020-09-30] MEDS: HEPARIN SODIUM (PORCINE) 5000 UNITS/ML 1ML VIAL SC SCH ×2 (09:58→21:37)
[2020-09-30] MEDS: INSULIN LANTUS (GLARGINE) 1 /0.01ml (100units/ml) SC SCH (09:58)
[2020-09-30] MEDS: fentaNYL Drip 2500mCg/250mlNS 250 ML IV SCH (23:45)
[2020-09-30] MEDS: NOREPINEPHRINE 8 MG/250ML KIT 250 ML IV SCH (23:45)
[2020-10-01] VITALS (84 sets, daily range): BP systolic 83–184; BP diastolic 32–80
[2020-10-01] MEDS: Glucerna 1.2 Cal 1Liter BOTTLE GT SCH (01:00)
[2020-10-01] MEDS: PROPOFOL 100 ML IV SCH ×2 (04:05→15:41)
[2020-10-01 04:52] LABS: Potassium 4.8 mmol/L (3.5-5.1)
[2020-10-01 04:57] LABS: Albumin 2.4 g/dL (3.4-5.0); BUN/Creatinine Ratio 28.7; Basophils # (auto) 0.1 10 ^3/uL (0-0.2); Bilirubin, Total 0.8 mg/dL (0.2-1.0); Calcium 9.4 mg/dL (8.5-10.1); Eosinophils # (auto) 0.2 10 ^3/uL (0-0.8); Hemoglobin 13.8 g/dL (12.2-16.2); Lymphocytes % (auto) 12.2 % (10.0-50.0); Mean Corpuscular Volume 70.9 fL (80.0-100.0); Nucleated Red Blood Cells % 0.2 %; Total Protein 7.1 g/dL (6.4-8.2)
[2020-10-01 04:59] LABS: Basophils % (auto) 0.5 % (0.0-2.0); Eosinophils % (auto) 1.2 % (0.0-7.0); Hematocrit 42.6 % (36.0-46.0); Lymphocytes # (auto) 1.9 10 ^3/uL (0.4-5.4); Mean Corpuscular Hemoglobin 22.9 pg (28.0-32.0); Mean Corpuscular Hgb Conc. 32.3 g/dL (32.0-36.0); Monocytes # (auto) 1.5 10 ^3/uL (0-1.3); Monocytes % (auto) 9.6 % (0.0-12.0); Neutrophils # (auto) 12.2 10 ^3/uL (1.6-8.6); Neutrophils % (auto) 76.5 % (37.0-80.0); Red Cell Distribution Width 17.8 % (11.8-14.3); White Blood Cell 15.9 10^3/uL (4.4-10.8)
[2020-10-01] MEDS: InsuLIN REG 1unit/0.01ml Soln (100units/ml) SC SCH ×3 (05:25→17:52)
[2020-10-01] MEDS: ACCU-CHEK COMFORT CURVE STRIP VI SCH ×3 (05:26→17:52)
[2020-10-01] MEDS: fentaNYL Drip 2500mCg/250mlNS 250 ML IV SCH ×2 (06:00→15:43)
[2020-10-01] MEDS: ALBUTEROL SULF 2.5 MG/0.5ML(0.5%) NEB SOLN NEB SCH ×3 (06:24→19:55)
[2020-10-01] MEDS: FAMOTIDINE (10MG/ML) 2ML VL IV SCH (09:39)
[2020-10-01] MEDS: INSULIN LANTUS (GLARGINE) 1 /0.01ml (100units/ml) SC SCH (09:41)
[2020-10-01] MEDS: HEPARIN SODIUM (PORCINE) 5000 UNITS/ML 1ML VIAL SC SCH ×2 (09:41→22:00)
[2020-10-01] MEDS: SILDENAFIL CITRATE 20 MG TAB PO SCH ×3 (09:42→20:00)
[2020-10-01] MEDS: ASCORBIC ACID 1,000 MG TAB PO SCH (09:42)
[2020-10-01] MEDS: SODIUM CHLOR 0.9% PF (SALINE LOCK) 10ML VIAL/SYR IV SCH ×2 (09:42→22:24)
[2020-10-01] MEDS: CHOLECALCIFEROL (VITD3) 2,000 UNIT CAP/TAB PO SCH (09:42)
[2020-10-01] MEDS: BUDESONIDE (INHALATION) 0.5 MG/2 ML NEB NEB SCH ×2 (12:29→19:55)
[2020-10-01] MEDS: NOREPINEPHRINE 8 MG/250ML KIT 250 ML IV SCH (23:45)
[2020-10-02] VITALS (89 sets, daily range): BP systolic 83–186; BP diastolic 31–132
[2020-10-02] MEDS: ACCU-CHEK COMFORT CURVE STRIP VI SCH ×4 (00:08→18:16)
[2020-10-02] MEDS: InsuLIN REG 1unit/0.01ml Soln (100units/ml) SC SCH ×4 (00:09→18:00)
[2020-10-02 04:50] LABS: Eosinophils # (auto) 0.2 10 ^3/uL (0-0.8); Lymphocytes # (auto) 1.8 10 ^3/uL (0.4-5.4); Lymphocytes % (auto) 13.1 % (10.0-50.0)
[2020-10-02 04:53] LABS: Basophils # (auto) 0.2 10 ^3/uL (0-0.2); Basophils % (auto) 1.3 % (0.0-2.0); Eosinophils % (auto) 1.7 % (0.0-7.0); Hematocrit 41.1 % (36.0-46.0); Hemoglobin 13.2 g/dL (12.2-16.2); Mean Corpuscular Hemoglobin 22.8 pg (28.0-32.0); Mean Corpuscular Hgb Conc. 32.2 g/dL (32.0-36.0); Mean Corpuscular Volume 70.9 fL (80.0-100.0); Monocytes # (auto) 1.8 10 ^3/uL (0-1.3); Monocytes % (auto) 13.3 % (0.0-12.0); Neutrophils # (auto) 9.6 10 ^3/uL (1.6-8.6); Neutrophils % (auto) 70.6 % (37.0-80.0); Red Blood Cells 5.79 10^6/uL (4.0-5.20); Red Cell Distribution Width 17.3 % (11.8-14.3); White Blood Cell 13.6 10^3/uL (4.4-10.8)
[2020-10-02 05:29] LABS: Potassium 4.7 mmol/L (3.5-5.1)
[2020-10-02 05:41] LABS: Albumin 2.2 g/dL (3.4-5.0); BUN/Creatinine Ratio 28.4; Bilirubin, Total 0.7 mg/dL (0.2-1.0); Calcium 9.3 mg/dL (8.5-10.1); Total Protein 6.9 g/dL (6.4-8.2)
[2020-10-02] MEDS: BUDESONIDE (INHALATION) 0.5 MG/2 ML NEB NEB SCH ×2 (06:13→19:15)
[2020-10-02] MEDS: ALBUTEROL SULF 2.5 MG/0.5ML(0.5%) NEB SOLN NEB SCH ×2 (06:13→19:15)
[2020-10-02] MEDS: ASCORBIC ACID 1,000 MG TAB PO SCH (08:45)
[2020-10-02] MEDS: SILDENAFIL CITRATE 20 MG TAB PO SCH ×3 (08:45→20:43)
[2020-10-02] MEDS: SODIUM CHLOR 0.9% PF (SALINE LOCK) 10ML VIAL/SYR IV SCH ×2 (08:45→23:00)
[2020-10-02] MEDS: CHOLECALCIFEROL (VITD3) 2,000 UNIT CAP/TAB PO SCH (10:00)
[2020-10-02] MEDS: HEPARIN SODIUM (PORCINE) 5000 UNITS/ML 1ML VIAL SC SCH ×2 (10:00→23:01)
[2020-10-02] MEDS: INSULIN LANTUS (GLARGINE) 1 /0.01ml (100units/ml) SC SCH (13:39)
[2020-10-02] MEDS: PROPOFOL 100 ML IV SCH (19:10)
[2020-10-02] MEDS: NOREPINEPHRINE 8 MG/250ML KIT 250 ML IV SCH (23:45)
[2020-10-03] VITALS (95 sets, daily range): BP systolic 81–190; BP diastolic 30–91
[2020-10-03] MEDS: ACCU-CHEK COMFORT CURVE STRIP VI SCH ×3 (00:40→12:00)
[2020-10-03] MEDS: InsuLIN REG 1unit/0.01ml Soln (100units/ml) SC SCH ×3 (00:40→12:00)
[2020-10-03] MEDS: ALBUTEROL SULF 2.5 MG/0.5ML(0.5%) NEB SOLN NEB SCH ×3 (06:00→22:17)
[2020-10-03] MEDS: BUDESONIDE (INHALATION) 0.5 MG/2 ML NEB NEB SCH ×2 (06:00→22:17)
[2020-10-03 07:07] LABS: Basophils # (auto) 0.2 10 ^3/uL (0-0.2); Hemoglobin 13.2 g/dL (12.2-16.2)
[2020-10-03 07:09] LABS: Basophils % (auto) 1.2 % (0.0-2.0); Eosinophils # (auto) 0.2 10 ^3/uL (0-0.8); Eosinophils % (auto) 1.3 % (0.0-7.0); Hematocrit 41.5 % (36.0-46.0); Lymphocytes % (auto) 13.9 % (10.0-50.0); Mean Corpuscular Hemoglobin 22.9 pg (28.0-32.0); Mean Corpuscular Hgb Conc. 31.7 g/dL (32.0-36.0); Mean Corpuscular Volume 72.3 fL (80.0-100.0); Monocytes # (auto) 1.7 10 ^3/uL (0-1.3); Monocytes % (auto) 11.7 % (0.0-12.0); Neutrophils # (auto) 10.4 10 ^3/uL (1.6-8.6); Neutrophils % (auto) 71.9 % (37.0-80.0); Nucleated Red Blood Cells % 0.2 %; Red Blood Cells 5.74 10^6/uL (4.0-5.20); Red Cell Distribution Width 17.7 % (11.8-14.3); White Blood Cell 14.4 10^3/uL (4.4-10.8)
[2020-10-03 07:23] LABS: Albumin 2.2 g/dL (3.4-5.0); Calcium 9.3 mg/dL (8.5-10.1); Potassium 4.5 mmol/L (3.5-5.1)
[2020-10-03 07:28] LABS: BUN/Creatinine Ratio 26.6; Bilirubin, Total 0.8 mg/dL (0.2-1.0)
[2020-10-03] MEDS: fentaNYL Drip 2500mCg/250mlNS 250 ML IV SCH ×2 (08:09→23:45)
[2020-10-03] MEDS: PROPOFOL 100 ML IV SCH (09:56)
[2020-10-03] MEDS: ASCORBIC ACID 1,000 MG TAB PO SCH (10:00)
[2020-10-03] MEDS: SILDENAFIL CITRATE 20 MG TAB PO SCH ×3 (10:00→19:58)
[2020-10-03] MEDS: INSULIN LANTUS (GLARGINE) 1 /0.01ml (100units/ml) SC SCH (12:29)
[2020-10-03] MEDS: CHOLECALCIFEROL (VITD3) 2,000 UNIT CAP/TAB PO SCH (12:30)
[2020-10-03] MEDS: HEPARIN SODIUM (PORCINE) 5000 UNITS/ML 1ML VIAL SC SCH ×2 (12:30→22:34)
[2020-10-03] MEDS: FAMOTIDINE (10MG/ML) 2ML VL IV SCH (12:31)
[2020-10-03] MEDS: SODIUM CHLOR 0.9% PF (SALINE LOCK) 10ML VIAL/SYR IV SCH ×2 (12:31→22:33)
[2020-10-03] MEDS: MORPHINE SULFATE INJECTION 2 MG/ML SYRG IV PRN (15:13)
[2020-10-03] MEDS: Glucerna 1.2 Cal 1Liter BOTTLE GT SCH (20:00)
[2020-10-03] MEDS: NOREPINEPHRINE 8 MG/250ML KIT 250 ML IV SCH (23:45)
[2020-10-04] VITALS (98 sets, daily range): BP systolic 86–184; BP diastolic 43–92
[2020-10-04] MEDS: PROPOFOL 100 ML IV SCH (04:17)
[2020-10-04] MEDS: BUDESONIDE (INHALATION) 0.5 MG/2 ML NEB NEB SCH ×2 (06:15→19:20)
[2020-10-04] MEDS: InsuLIN REG 1unit/0.01ml Soln (100units/ml) SC SCH ×4 (06:15→23:10)
[2020-10-04] MEDS: ACCU-CHEK COMFORT CURVE STRIP VI SCH ×4 (06:15→23:10)
[2020-10-04] MEDS: ALBUTEROL SULF 2.5 MG/0.5ML(0.5%) NEB SOLN NEB SCH ×3 (06:15→19:20)
[2020-10-04] MEDS: SILDENAFIL CITRATE 20 MG TAB PO SCH ×3 (08:02→20:00)
[2020-10-04] MEDS: ASCORBIC ACID 1,000 MG TAB PO SCH (09:47)
[2020-10-04] MEDS: CHOLECALCIFEROL (VITD3) 2,000 UNIT CAP/TAB PO SCH (09:47)
[2020-10-04] MEDS: INSULIN LANTUS (GLARGINE) 1 /0.01ml (100units/ml) SC SCH (09:51)
[2020-10-04] MEDS: SODIUM CHLOR 0.9% PF (SALINE LOCK) 10ML VIAL/SYR IV SCH ×2 (10:00→22:24)
[2020-10-04] MEDS: HEPARIN SODIUM (PORCINE) 5000 UNITS/ML 1ML VIAL SC SCH (10:00)
[2020-10-04] MEDS: MORPHINE SULFATE INJECTION 2 MG/ML SYRG IV PRN (15:52)
[2020-10-04] MEDS ORDERED: PANTOPRAZOLE 40mg/50ML NS AE 50 ML IV SCH (16:00)
[2020-10-04] MEDS ORDERED: EPINEPHrine HCL 0.5 ML NEB NEB ONE (16:00)
[2020-10-04] MEDS: NOREPINEPHRINE 8 MG/250ML KIT 250 ML IV SCH (23:45)
[2020-10-04] MEDS: hydrALAZINE HCL 20 MG/ML VL IV PRN (23:56)
[2020-10-05] VITALS (71 sets, daily range): BP systolic 135–187; BP diastolic 64–87
[2020-10-05] MEDS ORDERED: hydrALAZINE HCL 20 MG/ML VL IV SCH
[2020-10-05 05:39] LABS: Basophils # (auto) 0.2 10 ^3/uL (0-0.2); Eosinophils # (auto) 0.1 10 ^3/uL (0-0.8); Eosinophils % (auto) 0.4 % (0.0-7.0); Hemoglobin 13.8 g/dL (12.2-16.2); Lymphocytes # (auto) 1.8 10 ^3/uL (0.4-5.4); Nucleated Red Blood Cells % 0.1 %
[2020-10-05 05:41] LABS: Basophils % (auto) 1.2 % (0.0-2.0); Hematocrit 42.7 % (36.0-46.0); Lymphocytes % (auto) 10.5 % (10.0-50.0); Mean Corpuscular Hemoglobin 23.1 pg (28.0-32.0); Mean Corpuscular Hgb Conc. 32.4 g/dL (32.0-36.0); Mean Corpuscular Volume 71.2 fL (80.0-100.0); Monocytes # (auto) 1.7 10 ^3/uL (0-1.3); Monocytes % (auto) 10.3 % (0.0-12.0); Neutrophils # (auto) 13.1 10 ^3/uL (1.6-8.6); Neutrophils % (auto) 77.6 % (37.0-80.0); Red Cell Distribution Width 17.4 % (11.8-14.3); White Blood Cell 16.8 10^3/uL (4.4-10.8)
[2020-10-05 05:57] LABS: Albumin 2.6 g/dL (3.4-5.0); Calcium 9.6 mg/dL (8.5-10.1); Potassium 4.6 mmol/L (3.5-5.1)
[2020-10-05] MEDS: ALBUTEROL SULF 2.5 MG/0.5ML(0.5%) NEB SOLN NEB SCH ×2 (06:00→22:31)
[2020-10-05] MEDS: InsuLIN REG 1unit/0.01ml Soln (100units/ml) SC SCH ×4 (06:00→23:53)
[2020-10-05 06:01] LABS: BUN/Creatinine Ratio 21.8; Total Protein 7.6 g/dL (6.4-8.2)
[2020-10-05] MEDS: ACCU-CHEK COMFORT CURVE STRIP VI SCH ×4 (06:07→23:54)
[2020-10-05] MEDS: SILDENAFIL CITRATE 20 MG TAB PO SCH ×3 (08:00→19:45)
[2020-10-05] MEDS: ASCORBIC ACID 1,000 MG TAB PO SCH (10:00)
[2020-10-05] MEDS: CHOLECALCIFEROL (VITD3) 2,000 UNIT CAP/TAB PO SCH (10:00)
[2020-10-05] MEDS: hydrALAZINE HCL 20 MG/ML VL IV PRN ×2 (10:16→17:00)
[2020-10-05] MEDS: FAMOTIDINE (10MG/ML) 2ML VL IV SCH (10:16)
[2020-10-05] MEDS: BUDESONIDE (INHALATION) 0.5 MG/2 ML NEB NEB SCH ×2 (11:15→22:31)
[2020-10-05] MEDS: SODIUM CHLOR 0.9% PF (SALINE LOCK) 10ML VIAL/SYR IV SCH ×2 (12:20→21:30)
[2020-10-05] MEDS: INSULIN LANTUS (GLARGINE) 1 /0.01ml (100units/ml) SC SCH (12:29)
[2020-10-05] MEDS: NOREPINEPHRINE 8 MG/250ML KIT 250 ML IV SCH (23:45)
[2020-10-06] VITALS: BP 143/73
[2020-10-06 00:15] VITALS: BP 140/77
[2020-10-06 00:30] VITALS: BP 136/88
[2020-10-06 01:59] VITALS: BP 155/83
[2020-10-06] MEDS: InsuLIN REG 1unit/0.01ml Soln (100units/ml) SC SCH ×3 (06:00→18:00)
[2020-10-06] MEDS: ACCU-CHEK COMFORT CURVE STRIP VI SCH ×3 (06:08→18:00)
[2020-10-06 08:00] VITALS: BP 164/95
[2020-10-06 08:46] LABS: Hemoglobin 14.9 g/dL (12.2-16.2)
[2020-10-06 08:48] LABS: Basophils # (auto) 0.1 10 ^3/uL (0-0.2); Basophils % (auto) 0.6 % (0.0-2.0); Eosinophils # (auto) 0.1 10 ^3/uL (0-0.8); Eosinophils % (auto) 0.3 % (0.0-7.0); Hematocrit 47.6 % (36.0-46.0); Lymphocytes % (auto) 8.7 % (10.0-50.0); Mean Corpuscular Hemoglobin 22.6 pg (28.0-32.0); Mean Corpuscular Hgb Conc. 31.3 g/dL (32.0-36.0); Mean Corpuscular Volume 72.1 fL (80.0-100.0); Monocytes # (auto) 2.3 10 ^3/uL (0-1.3); Monocytes % (auto) 9.9 % (0.0-12.0); Neutrophils # (auto) 18.6 10 ^3/uL (1.6-8.6); Neutrophils % (auto) 80.5 % (37.0-80.0); Nucleated Red Blood Cells % 0.1 %; Red Blood Cells 6.59 10^6/uL (4.0-5.20); Red Cell Distribution Width 18.1 % (11.8-14.3); White Blood Cell 23.1 10^3/uL (4.4-10.8)
[2020-10-06 09:06] LABS: Calcium 10.1 mg/dL (8.5-10.1); Magnesium 2.3 mg/dL (1.6-2.6); Potassium 4.6 mmol/L (3.5-5.1)
[2020-10-06] MEDS: INSULIN LANTUS (GLARGINE) 1 /0.01ml (100units/ml) SC SCH (10:00)
[2020-10-06] MEDS: SILDENAFIL CITRATE 20 MG TAB PO SCH ×3 (11:53→20:18)
[2020-10-06] MEDS: ASCORBIC ACID 1,000 MG TAB PO SCH (11:53)
[2020-10-06] MEDS: CHOLECALCIFEROL (VITD3) 2,000 UNIT CAP/TAB PO SCH (11:53)
[2020-10-06] MEDS: SODIUM CHLOR 0.9% PF (SALINE LOCK) 10ML VIAL/SYR IV SCH ×2 (11:54→23:13)
[2020-10-06 16:00] VITALS: BP 152/83
[2020-10-06] MEDS: BUDESONIDE (INHALATION) 0.5 MG/2 ML NEB NEB SCH (21:59)
[2020-10-06] MEDS: ALBUTEROL SULF 2.5 MG/0.5ML(0.5%) NEB SOLN NEB SCH (21:59)
[2020-10-07] MEDS: ACCU-CHEK COMFORT CURVE STRIP VI SCH ×4 (00:21→18:00)
[2020-10-07 00:22] VITALS: BP 138/82
[2020-10-07] MEDS: DOXYCYCLINE 100MG/250ML 250 ML IV SCH ×3 (00:22→23:10)
[2020-10-07] MEDS: ONDANSETRON HCL 4 MG/2 ML VIAL IV PRN ×2 (00:22→05:24)
[2020-10-07] MEDS: InsuLIN REG 1unit/0.01ml Soln (100units/ml) SC SCH ×4 (00:22→18:00)
[2020-10-07 01:34] VITALS: BP 160/86
[2020-10-07 08:00] VITALS: BP 115/70
[2020-10-07 08:00] LABS: Basophils # (auto) 0 10 ^3/uL (0-0.2); Basophils % (auto) 0.2 % (0.0-2.0); Eosinophils # (auto) 0.1 10 ^3/uL (0-0.8); Eosinophils % (auto) 0.7 % (0.0-7.0); Hematocrit 46.9 % (36.0-46.0); Hemoglobin 15.1 g/dL (12.2-16.2); Lymphocytes # (auto) 1.5 10 ^3/uL (0.4-5.4); Lymphocytes % (auto) 7.8 % (10.0-50.0); Mean Corpuscular Hemoglobin 22.8 pg (28.0-32.0); Mean Corpuscular Hgb Conc. 32.2 g/dL (32.0-36.0); Mean Corpuscular Volume 70.8 fL (80.0-100.0); Monocytes # (auto) 1.6 10 ^3/uL (0-1.3); Monocytes % (auto) 8.6 % (0.0-12.0); Neutrophils # (auto) 15.5 10 ^3/uL (1.6-8.6); Neutrophils % (auto) 82.7 % (37.0-80.0); Nucleated Red Blood Cells % 0.2 %; Red Blood Cells 6.62 10^6/uL (4.0-5.20); Red Cell Distribution Width 17.7 % (11.8-14.3); White Blood Cell 18.8 10^3/uL (4.4-10.8)
[2020-10-07] MEDS: ALBUTEROL SULF 2.5 MG/0.5ML(0.5%) NEB SOLN NEB SCH ×3 (08:09→20:08)
[2020-10-07] MEDS: BUDESONIDE (INHALATION) 0.5 MG/2 ML NEB NEB SCH ×2 (08:09→20:08)
[2020-10-07] MEDS: SILDENAFIL CITRATE 20 MG TAB PO SCH ×2 (08:23→18:41)
[2020-10-07] MEDS: ASCORBIC ACID 1,000 MG TAB PO SCH (12:10)
[2020-10-07] MEDS: FAMOTIDINE (10MG/ML) 2ML VL IV SCH ×2 (12:10→22:22)
[2020-10-07] MEDS: SODIUM CHLOR 0.9% PF (SALINE LOCK) 10ML VIAL/SYR IV SCH ×2 (12:10→22:22)
[2020-10-07] MEDS: CHOLECALCIFEROL (VITD3) 2,000 UNIT CAP/TAB PO SCH (12:11)
[2020-10-07 13:30] LABS: Amylase 120 U/L (25-115); Lipase 1137 U/L (73-393)
[2020-10-07] MEDS: INSULIN LANTUS (GLARGINE) 1 /0.01ml (100units/ml) SC SCH (13:51)
[2020-10-07 16:00] VITALS: BP 100/62
[2020-10-07] MEDS: SODIUM CHLORIDE 0.9% 1,000 ML IV SCH (17:25)
[2020-10-07] MEDS: METOCLOPRAMIDE HCL 5MG/ml INJ 2ml VIAL IV SCH (18:41)
[2020-10-07] MEDS ORDERED: ACETAMINOPHEN 325 MG TAB PO PRN (20:15)
[2020-10-07] MEDS: HYDROcodone-ACET 5/325MG TAB PO PRN (20:33)
[2020-10-07] MEDS ORDERED: SILDENAFIL CITRATE 20 MG TAB PO ONE (23:00)
[2020-10-08] VITALS: BP 150/74
[2020-10-08] MEDS: METOCLOPRAMIDE HCL 5MG/ml INJ 2ml VIAL IV SCH ×4 (00:06→18:03)
[2020-10-08] MEDS: ACCU-CHEK COMFORT CURVE STRIP VI SCH ×4 (00:06→18:03)
[2020-10-08] MEDS: InsuLIN REG 1unit/0.01ml Soln (100units/ml) SC SCH ×4 (00:07→18:00)
[2020-10-08] MEDS: SODIUM CHLORIDE 0.9% 1,000 ML IV SCH ×2 (01:50→13:44)
[2020-10-08] MEDS: ALBUTEROL SULF 2.5 MG/0.5ML(0.5%) NEB SOLN NEB SCH ×3 (07:03→19:25)
[2020-10-08] MEDS: BUDESONIDE (INHALATION) 0.5 MG/2 ML NEB NEB SCH ×2 (07:03→19:25)
[2020-10-08 08:00] VITALS: BP 156/71
[2020-10-08 08:01] LABS: Basophils # (auto) 0.2 10 ^3/uL (0-0.2); Basophils % (auto) 0.9 % (0.0-2.0); Hemoglobin 13.7 g/dL (12.2-16.2); Mean Corpuscular Hemoglobin 22.9 pg (28.0-32.0); Monocytes % (auto) 9.6 % (0.0-12.0); Red Blood Cells 5.97 10^6/uL (4.0-5.20)
[2020-10-08 08:04] LABS: Eosinophils # (auto) 0.3 10 ^3/uL (0-0.8); Eosinophils % (auto) 1.4 % (0.0-7.0); Hematocrit 43.2 % (36.0-46.0); Lymphocytes # (auto) 1.6 10 ^3/uL (0.4-5.4); Lymphocytes % (auto) 8.4 % (10.0-50.0); Mean Corpuscular Hgb Conc. 31.6 g/dL (32.0-36.0); Mean Corpuscular Volume 72.4 fL (80.0-100.0); Monocytes # (auto) 1.8 10 ^3/uL (0-1.3); Neutrophils # (auto) 15.2 10 ^3/uL (1.6-8.6); Neutrophils % (auto) 79.7 % (37.0-80.0); Red Cell Distribution Width 17.6 % (11.8-14.3)
[2020-10-08] MEDS: SILDENAFIL CITRATE 20 MG TAB PO SCH ×3 (08:13→20:26)
[2020-10-08 09:34] LABS: Albumin 2.4 g/dL (3.4-5.0); BUN/Creatinine Ratio 23.7; Bilirubin, Total 1.3 mg/dL (0.2-1.0); Total Protein 7.3 g/dL (6.4-8.2)
[2020-10-08] MEDS: SODIUM CHLOR 0.9% PF (SALINE LOCK) 10ML VIAL/SYR IV SCH ×2 (10:35→21:50)
[2020-10-08] MEDS: CHOLECALCIFEROL (VITD3) 2,000 UNIT CAP/TAB PO SCH (10:36)
[2020-10-08] MEDS: ASCORBIC ACID 1,000 MG TAB PO SCH (10:36)
[2020-10-08 10:42] LABS: Calcium 9.5 mg/dL (8.5-10.1)
[2020-10-08] MEDS: INSULIN LANTUS (GLARGINE) 1 /0.01ml (100units/ml) SC SCH (11:32)
[2020-10-08] MEDS: FAMOTIDINE (10MG/ML) 2ML VL IV SCH ×2 (12:44→21:50)
[2020-10-08] MEDS: DOXYCYCLINE 100MG/250ML 250 ML IV SCH (13:43)
[2020-10-08 16:20] VITALS: BP 149/75
[2020-10-08] MEDS: HYDROcodone-ACET 5/325MG TAB PO PRN (20:26)
[2020-10-09] VITALS: BP 140/72
[2020-10-09] MEDS: DOXYCYCLINE 100MG/250ML 250 ML IV SCH ×2 (00:13→12:13)
[2020-10-09] MEDS: METOCLOPRAMIDE HCL 5MG/ml INJ 2ml VIAL IV SCH ×4 (00:13→18:16)
[2020-10-09] MEDS: ACCU-CHEK COMFORT CURVE STRIP VI SCH ×4 (00:13→18:16)
[2020-10-09] MEDS: InsuLIN REG 1unit/0.01ml Soln (100units/ml) SC SCH ×4 (00:14→18:00)
[2020-10-09] MEDS: SODIUM CHLORIDE 0.9% 1,000 ML IV SCH ×2 (06:23→17:14)
[2020-10-09] MEDS: BUDESONIDE (INHALATION) 0.5 MG/2 ML NEB NEB SCH ×2 (07:00→22:00)
[2020-10-09] MEDS: ALBUTEROL SULF 2.5 MG/0.5ML(0.5%) NEB SOLN NEB SCH ×3 (07:00→22:00)
[2020-10-09 07:02] LABS: Basophils # (auto) 0.2 10 ^3/uL (0-0.2); Eosinophils # (auto) 0.4 10 ^3/uL (0-0.8); Eosinophils % (auto) 2.2 % (0.0-7.0); Hematocrit 41.3 % (36.0-46.0); Hemoglobin 13.3 g/dL (12.2-16.2); Lymphocytes % (auto) 10.4 % (10.0-50.0); Mean Corpuscular Hgb Conc. 32.1 g/dL (32.0-36.0); Mean Corpuscular Volume 71.6 fL (80.0-100.0); Monocytes # (auto) 1.3 10 ^3/uL (0-1.3); Monocytes % (auto) 6.7 % (0.0-12.0); Neutrophils # (auto) 15.6 10 ^3/uL (1.6-8.6); Neutrophils % (auto) 79.7 % (37.0-80.0); Red Blood Cells 5.76 10^6/uL (4.0-5.20); White Blood Cell 19.6 10^3/uL (4.4-10.8)
[2020-10-09 07:21] LABS: Potassium 4.3 mmol/L (3.5-5.1)
[2020-10-09 07:37] LABS: BUN/Creatinine Ratio 20.3; Calcium 8.1 mg/dL (8.5-10.1)
[2020-10-09 08:00] VITALS: BP 152/68
[2020-10-09] MEDS: SILDENAFIL CITRATE 20 MG TAB PO SCH ×3 (09:43→21:52)
[2020-10-09] MEDS: FAMOTIDINE (10MG/ML) 2ML VL IV SCH ×2 (09:43→21:53)
[2020-10-09] MEDS: SODIUM CHLOR 0.9% PF (SALINE LOCK) 10ML VIAL/SYR IV SCH ×2 (09:43→21:53)
[2020-10-09] MEDS: INSULIN LANTUS (GLARGINE) 1 /0.01ml (100units/ml) SC SCH (10:18)
[2020-10-09] MEDS ORDERED: DOXY-286 PO (15:14)
[2020-10-09 16:00] VITALS: BP 155/81
[2020-10-10] VITALS: BP 141/73
[2020-10-10] MEDS: InsuLIN REG 1unit/0.01ml Soln (100units/ml) SC SCH ×4 (00:36→18:00)
[2020-10-10] MEDS: METOCLOPRAMIDE HCL 5MG/ml INJ 2ml VIAL IV SCH ×4 (00:36→18:19)
[2020-10-10] MEDS: ACCU-CHEK COMFORT CURVE STRIP VI SCH ×4 (00:36→18:19)
[2020-10-10] MEDS: DOXYCYCLINE 100MG/250ML 250 ML IV SCH ×3 (00:36→23:54)
[2020-10-10] MEDS: SODIUM CHLORIDE 0.9% 1,000 ML IV SCH ×2 (07:10→20:30)
[2020-10-10 08:00] VITALS: BP 140/68
[2020-10-10] MEDS: BUDESONIDE (INHALATION) 0.5 MG/2 ML NEB NEB SCH ×2 (08:00→22:30)
[2020-10-10] MEDS: ALBUTEROL SULF 2.5 MG/0.5ML(0.5%) NEB SOLN NEB SCH ×2 (08:00→22:30)
[2020-10-10] MEDS: SILDENAFIL CITRATE 20 MG TAB PO SCH ×3 (08:47→21:13)
[2020-10-10] MEDS: SODIUM CHLOR 0.9% PF (SALINE LOCK) 10ML VIAL/SYR IV SCH ×2 (08:48→22:00)
[2020-10-10] MEDS: FAMOTIDINE (10MG/ML) 2ML VL IV SCH ×2 (08:48→22:44)
[2020-10-10] MEDS: INSULIN LANTUS (GLARGINE) 1 /0.01ml (100units/ml) SC SCH (08:52)
[2020-10-10 16:00] VITALS: BP 155/78
[2020-10-11] VITALS: BP 153/79
[2020-10-11] MEDS: ACCU-CHEK COMFORT CURVE STRIP VI SCH ×4 (00:16→18:38)
[2020-10-11] MEDS: METOCLOPRAMIDE HCL 5MG/ml INJ 2ml VIAL IV SCH ×3 (00:16→12:39)
[2020-10-11] MEDS: InsuLIN REG 1unit/0.01ml Soln (100units/ml) SC SCH ×4 (06:00→18:00)
[2020-10-11 08:00] VITALS: BP 146/75
[2020-10-11] MEDS: ALBUTEROL SULF 2.5 MG/0.5ML(0.5%) NEB SOLN NEB SCH (08:00)
[2020-10-11] MEDS: BUDESONIDE (INHALATION) 0.5 MG/2 ML NEB NEB SCH (08:00)
[2020-10-11] MEDS ORDERED: FAMOTIDINE (10MG/ML) 2ML VL IV SCH (10:00)
[2020-10-11] MEDS: SODIUM CHLORIDE 0.9% 1,000 ML IV SCH (10:01)
[2020-10-11] MEDS: SODIUM CHLOR 0.9% PF (SALINE LOCK) 10ML VIAL/SYR IV SCH (10:01)
[2020-10-11] MEDS: SILDENAFIL CITRATE 20 MG TAB PO SCH ×2 (10:01→14:00)
[2020-10-11] MEDS: INSULIN LANTUS (GLARGINE) 1 /0.01ml (100units/ml) SC SCH (10:14)
[2020-10-11] MEDS: DOXYCYCLINE 100MG/250ML 250 ML IV SCH (12:38)
[2020-10-11 14:00] VITALS: BP 108/74
[2020-12-21] MEDS ORDERED: LORA-483 PO (09:50)
== END 2020-10-11 19:07 | disposition home health service (06) | DRG 870 ==
LOC: EDBD 22:09 → ER 22:11 → TELE 09-22 07:01 → ICU WEST 09-25 11:22 → TELE-WESTW 10-06 01:26
PROVIDERS: ADMIT Nurse Practitioner Family; ATTEND Internal Medicine
PROC: 5A1955Z Respiratory Ventilation, Greater than 96 Consecutive Hours (ICD-10-PCS; principal; 2020-09-22)
PROC: 0BH17EZ Insertion of Endotracheal Airway into Trachea, Via Natural or Artificial Opening (ICD-10-PCS; 2020-09-22)
PROC: 02HV33Z Insertion of Infusion Device into Superior Vena Cava, Percutaneous Approach (ICD-10-PCS; 2020-09-22)
PROC: XW13325 Transfusion of Convalescent Plasma (Nonautologous) into Peripheral Vein, Percutaneous Approach, New Technology Group 5 (ICD-10-PCS; 2020-10-03)
DX: A41.89 Other specified sepsis (principal); R65.21 Severe sepsis with septic shock; U07.1 COVID-19; J96.01 Acute respiratory failure with hypoxia; N17.0 Acute kidney failure with tubular necrosis; N18.6 End stage renal disease; G93.41 Metabolic encephalopathy; I50.33 Acute on chronic diastolic (congestive) heart failure; J12.82 Pneumonia due to coronavirus disease 2019; E87.2 Acidosis; E87.1 Hypo-osmolality and hyponatremia; Z99.11 Dependence on respirator [ventilator] status; Z68.41 Body mass index [BMI] 40.0-44.9, adult; E11.65 Type 2 diabetes mellitus with hyperglycemia; E11.22 Type 2 diabetes mellitus with diabetic chronic kidney disease; D69.6 Thrombocytopenia, unspecified; E55.9 Vitamin D deficiency, unspecified; E66.01 Morbid (severe) obesity due to excess calories; E78.5 Hyperlipidemia, unspecified; Z99.2 Dependence on renal dialysis; Z79.899 Other long term (current) drug therapy; Z79.4 Long term (current) use of insulin; N18.31 Chronic kidney disease, stage 3a; I11.0 Hypertensive heart disease with heart failure
CPT/HCPCS: 31500; 36415; 36569; 36600; 71045; 74176; 80048; 80053; 80061; 81001; 82140; 82150; 82306; 82728; 82805; 82962; 83036; 83605; 83615; 83690; 83735; 83880; 85007; 85025; 85027; 85379; 85610; 86141; 86850; 86900; 86901; 87040; 87070; 87081; 87086; 87205; 87426; 92610; 92950; 93005; 93970; 94002; 94003; 94640; 96365; 96368; 99291; G0378; J1100; J1815; J2185; J2250; J2405; J2543; J2704; J3490; J7060

== ENCOUNTER 2020-10-19 22:03 | Inpatient (IN) | payer OTHER, MEDICAID ==
[~2020-10-19] VITALS: Ht 167.6 cm; Wt 138.0 kg
[~2020-10-19 22:03] MED LIST changes: -ASCO500C49 PO; -CHOL200031 PO; -CYCL7.5T45 PO; +DOXY-286 PO; -HYDR-3682 PO; -INSLISPI SC; +LISI-648 PO; -LISI-716 PO; -LORA-35 PO; -MAGN400C2 PO; -METF-371 PO
[2020-10-20 02:06] LABS: Hematocrit 42.9 % (36.0-46.0); Hemoglobin 13.3 g/dL (12.2-16.2); Mean Corpuscular Hemoglobin 22.2 pg (28.0-32.0); Mean Corpuscular Hgb Conc. 31.1 g/dL (32.0-36.0); Mean Corpuscular Volume 71.5 fL (80.0-100.0); Platelet Count (auto) 435 10^3/uL (140-450); Red Cell Distribution Width 16.6 % (11.8-14.3); White Blood Cell 27.2 10^3/uL (4.4-10.8)
[2020-10-20 02:21] LABS: Basophils % (manual) 0 (0.0-2.0); Blast Cells 0; Eosinophils % (manual) 0 (0-7); Metamyelocytes % 0; Promyelocytes % 0; Reactive Lymphocytes 0
[2020-10-20 02:22] LABS: Alanine Aminotransferase 22 U/L (13-56); Albumin 2.1 g/dL (3.4-5.0); Anion Gap 11 (5-15); Aspartate Aminotransferase 13 U/L (15-37); BUN/Creatinine Ratio 22.1; Blood Urea Nitrogen 42 mg/dL (7-18); Calcium 9.4 mg/dL (8.5-10.1); Carbon Dioxide 18 mmol/L (21-32); Chloride 101 mmol/L (98-107); GFR African American 34 mL/min; GFR Non-African American 28 mL/min; Glucose 194 mg/dL (74-106); Potassium 5.1 mmol/L (3.5-5.1); Sodium 130 mmol/L (136-145)
[2020-10-20 02:24] LABS: Alkaline Phosphatase 136 U/L (45-117); Bilirubin, Total 0.6 mg/dL (0.2-1.0); Total Protein 8.1 g/dL (6.4-8.2)
[2020-10-20 04:44] LABS: Band Neutrophils % (manual) 11; Myelocytes % 2
[2020-10-20 04:45] LABS: Lymphocytes % (manual) 9 (10.0-50.0); Monocytes % (manual) 5 (0-12)
[2020-10-20] MEDS ORDERED: cefTRIAXone SOD 1,000 MG VL IM ONE (05:00)
[2020-10-20 07:36] LABS: Urine Bacteria MOD /hpf (None Seen); Urine Blood 3+ /uL (Negative); Urine Hyaline Cast MANY /lpf (0 - 2); Urine Mucus FEW (None Seen); Urine WBC 649 /hpf (0 - 5); Urine WBC Clumps PRESENT /hpf (None Seen)
[2020-10-20] MEDS ORDERED: DOCUSATE SOD 100 MG CAP PO PRN (08:15)
[2020-10-20] MEDS ORDERED: DEXTROSE (50%) 50ML SYRG IV PRN (08:15)
[2020-10-20] MEDS ORDERED: NITROGLYCERIN 0.4 MG SL TAB SL PRN (08:15)
[2020-10-20] MEDS ORDERED: MORPHINE SULF INJ 2 MG/ML SYRINGE 1ML IV PRN (08:15)
[2020-10-20] MEDS ORDERED: ONDANSETRON HCL 4 MG/2 ML VIAL IV PRN (08:15)
[2020-10-20] MEDS ORDERED: ACETAMINOPHEN 325 MG TAB PO PRN (08:15)
[2020-10-20 09:12] LABS: Hematocrit 39.6 % (36.0-46.0); Hemoglobin 12.7 g/dL (12.2-16.2); Mean Corpuscular Hemoglobin 22.6 pg (28.0-32.0); Mean Corpuscular Volume 70.6 fL (80.0-100.0); Platelet Count (auto) 411 10^3/uL (140-450); Red Blood Cells 5.61 10^6/uL (4.0-5.20); Red Cell Distribution Width 16.9 % (11.8-14.3)
[2020-10-20 09:21] LABS: Band Neutrophils % (manual) 0; Basophils % (manual) 0 (0.0-2.0); Blast Cells 0; Eosinophils % (manual) 0 (0-7); Metamyelocytes % 0; Myelocytes % 0; Promyelocytes % 0; Reactive Lymphocytes 0
[2020-10-20 09:29] LABS: Calcium 9.3 mg/dL (8.5-10.1); Potassium 5.5 mmol/L (3.5-5.1)
[2020-10-20 09:32] LABS: BUN/Creatinine Ratio 22.3; Bilirubin, Total 0.5 mg/dL (0.2-1.0); Total Protein 8.2 g/dL (6.4-8.2)
[2020-10-20 09:48] LABS: Lymphocytes % (manual) 10 (10.0-50.0); Monocytes % (manual) 8 (0-12)
[2020-10-20] MEDS ORDERED: FER325T PO (11:18)
[2020-10-20] MEDS ORDERED: LIRA18IN2 SUBCUT (11:19)
[2020-10-20] MEDS ORDERED: CARV3.1240 PO (11:20)
[2020-10-20] MEDS ORDERED: COEN100C15 PO (11:20)
[2020-10-20] MEDS ORDERED: LORA-622 PO (11:20)
[2020-10-20] MEDS ORDERED: ALPH600C2 PO (11:21)
[2020-10-20] MEDS ORDERED: ASCO100076 PO (11:21)
[2020-10-20] MEDS ORDERED: MAGN400T40 PO (11:22)
[2020-10-20] MEDS ORDERED: CHOL20002 PO (11:22)
[2020-10-20] MEDS ORDERED: BIOT10TA2 PO (11:23)
[2020-10-20] MEDS ORDERED: DOCU100T15 PO (11:23)
[2020-10-20] MEDS ORDERED: INSU100I51 SC (11:25)
[2020-10-20] MEDS: InsuLIN REG 1unit/0.01ml Soln (100units/ml) SC SCH ×3 (11:30→23:59)
[2020-10-20] MEDS: ACCU-CHEK COMFORT CURVE STRIP VI SCH ×3 (11:30→23:59)
[2020-10-20] MEDS: ZINC SULFATE 220mg CAP or TAB PO SCH (11:58)
[2020-10-20] MEDS: FAMOTIDINE (10MG/ML) 2ML VL IV SCH (11:58)
[2020-10-20] MEDS: ASCORBIC ACID 500 MG TAB PO SCH ×2 (11:58→22:00)
[2020-10-20] MEDS: HEPARIN SODIUM (PORCINE) 5000 UNITS/ML 1ML VIAL SC SCH ×2 (11:58→23:59)
[2020-10-20] MEDS: MULTIPLE VITAMIN TAB PO SCH (11:58)
[2020-10-20] MEDS: cefTRIAXone 1GM/50ML D5W 50 ML IV SCH (11:58)
[2020-10-20] MEDS: SODIUM CHLOR 0.9% PF (SALINE LOCK) 10ML VIAL/SYR IV SCH ×2 (14:24→23:59)
[2020-10-20] MEDS: SODIUM BICARB 50ML SYR 75 ML in SOD CHL 0.45% 1,000 ML IV SCH ×2 (15:23→23:59)
[2020-10-20 22:00] VITALS: BP 129/69
[2020-10-20 23:00] VITALS: BP 129/69
[2020-10-21 05:30] VITALS: BP 113/60
[2020-10-21] MEDS: ACCU-CHEK COMFORT CURVE STRIP VI SCH ×4 (06:17→21:47)
[2020-10-21] MEDS: SODIUM CHLOR 0.9% PF (SALINE LOCK) 10ML VIAL/SYR IV SCH ×3 (06:17→21:46)
[2020-10-21] MEDS: InsuLIN REG 1unit/0.01ml Soln (100units/ml) SC SCH ×4 (06:20→21:51)
[2020-10-21 08:00] VITALS: BP 103/55
[2020-10-21 08:16] LABS: Hematocrit 37.2 % (36.0-46.0); Hemoglobin 11.8 g/dL (12.2-16.2); Mean Corpuscular Hemoglobin 22.5 pg (28.0-32.0); Mean Corpuscular Hgb Conc. 31.6 g/dL (32.0-36.0); Mean Corpuscular Volume 71.2 fL (80.0-100.0); Platelet Count (auto) 348 10^3/uL (140-450); Red Blood Cells 5.23 10^6/uL (4.0-5.20); Red Cell Distribution Width 16.6 % (11.8-14.3); White Blood Cell 24.6 10^3/uL (4.4-10.8)
[2020-10-21 08:28] LABS: Basophils % (manual) 0 (0.0-2.0); Blast Cells 0; Eosinophils % (manual) 0 (0-7); Monocytes % (manual) 0 (0-12); Potassium 4.7 mmol/L (3.5-5.1); Promyelocytes % 0; Reactive Lymphocytes 0
[2020-10-21 08:36] LABS: Albumin 1.9 g/dL (3.4-5.0); BUN/Creatinine Ratio 26.2; Bilirubin, Total 0.4 mg/dL (0.2-1.0); Calcium 9.1 mg/dL (8.5-10.1); Total Protein 7.3 g/dL (6.4-8.2)
[2020-10-21] MEDS: cefTRIAXone 1GM/50ML D5W 50 ML IV SCH (09:15)
[2020-10-21] MEDS: ZINC SULFATE 220mg CAP or TAB PO SCH (09:16)
[2020-10-21] MEDS: FAMOTIDINE (10MG/ML) 2ML VL IV SCH (09:16)
[2020-10-21] MEDS: MULTIPLE VITAMIN TAB PO SCH (09:16)
[2020-10-21] MEDS: ASCORBIC ACID 500 MG TAB PO SCH ×2 (09:17→21:46)
[2020-10-21] MEDS: HEPARIN SODIUM (PORCINE) 5000 UNITS/ML 1ML VIAL SC SCH ×2 (09:26→21:47)
[2020-10-21] MEDS: HYDROcodone-ACET 5/325MG TAB PO PRN ×3 (09:34→17:44)
[2020-10-21 13:09] LABS: Band Neutrophils % (manual) 10; Lymphocytes % (manual) 2 (10.0-50.0); Metamyelocytes % 1; Myelocytes % 1
[2020-10-21 15:43] VITALS: BP 125/59
[2020-10-21] MEDS: SODIUM BICARB 50ML SYR 75 ML in SOD CHL 0.45% 1,000 ML IV SCH (17:41)
[2020-10-21 19:44] LABS: INR 1.29 (0.9-1.15); Partial Thromboplastin Time 35.6 sec (23.0-31.2)
[2020-10-21] MEDS: metroNIDAZOLE 500MG/100ML 100 ML IV SCH (21:46)
[2020-10-21 22:00] VITALS: BP 112/58
[2020-10-22] MEDS: HYDROcodone-ACET 5/325MG TAB PO PRN ×3 (02:48→18:21)
[2020-10-22 05:00] VITALS: BP 134/64
[2020-10-22] MEDS: SODIUM CHLOR 0.9% PF (SALINE LOCK) 10ML VIAL/SYR IV SCH ×3 (05:36→21:35)
[2020-10-22] MEDS: metroNIDAZOLE 500MG/100ML 100 ML IV SCH ×3 (05:36→21:35)
[2020-10-22] MEDS: ACCU-CHEK COMFORT CURVE STRIP VI SCH ×4 (06:30→22:20)
[2020-10-22] MEDS: InsuLIN REG 1unit/0.01ml Soln (100units/ml) SC SCH ×4 (06:35→22:11)
[2020-10-22] MEDS: LIDOCAINE 1% HCL (LOCAL ANESTH.) INJ 20ML MDV ONE ×2 (07:29→08:50)
[2020-10-22] MEDS ORDERED: SUCCINYLCHOLINE CHLORIDE 20 MG/ML 10ML VIAL IV ONE (07:29)
[2020-10-22] MEDS ORDERED: DOXAPRAM HCL 20 MG/ML 20ML VIAL INJ IV ONE (07:29)
[2020-10-22 07:38] VITALS: BP 98/70
[2020-10-22 07:40] LABS: Calcium 9.4 mg/dL (8.5-10.1); Potassium 4.8 mmol/L (3.5-5.1)
[2020-10-22 07:45] LABS: BUN/Creatinine Ratio 25.9
[2020-10-22] MEDS: SODIUM BICARB 50ML SYR 75 ML in SOD CHL 0.45% 1,000 ML IV SCH ×2 (07:45→22:20)
[2020-10-22] MEDS ORDERED: KETAMINE HCL 10 ML ONE (07:47)
[2020-10-22] MEDS ORDERED: fentaNYL CITRATE 100 MCG/2 ML VL ONE (07:47)
[2020-10-22] MEDS ORDERED: ROCURONIUM 10MG/ML 10ML VIAL IV ONE (07:47)
[2020-10-22] MEDS ORDERED: MIDAZOLAM HCL 1MG/1ML-2 ML VIAL ONE (07:47)
[2020-10-22] MEDS ORDERED: PROPOFOL 10 MG/ML 20 ML IV ONE (07:47)
[2020-10-22] MEDS ORDERED: SODIUM CHLORIDE LOCK 10 ML ONE (07:47)
[2020-10-22] MEDS ORDERED: ONDANSETRON HCL 4 MG/2 ML VIAL ONE (07:47)
[2020-10-22 08:00] VITALS: BP 98/70
[2020-10-22] MEDS: BUPIVACAINE 0.25% INJ 50ML VIAL ONE ×2 (08:08→08:50)
[2020-10-22] MEDS ORDERED: LIDOCAINE W/ EPINEPHRINE 1 % INJ 30ML ONE (08:08)
[2020-10-22] MEDS ORDERED: ceFAZolin 1GM/50ML 100 ML IV ONE (08:18)
[2020-10-22] MEDS: DAKINS HALF STR 0.25% (NaHypochlorite) 473 ML TOPICAL SOL TOP ONE ×2 (09:00→09:15)
[2020-10-22] MEDS: ASCORBIC ACID 500 MG TAB PO SCH ×2 (10:00→21:35)
[2020-10-22] MEDS: HEPARIN SODIUM (PORCINE) 5000 UNITS/ML 1ML VIAL SC SCH ×2 (10:00→21:17)
[2020-10-22] MEDS: ZINC SULFATE 220mg CAP or TAB PO SCH (10:00)
[2020-10-22] MEDS: MULTIPLE VITAMIN TAB PO SCH (10:00)
[2020-10-22] MEDS: FAMOTIDINE (10MG/ML) 2ML VL IV SCH (10:00)
[2020-10-22] MEDS: cefTRIAXone 1GM/50ML D5W 50 ML IV SCH (10:17)
[2020-10-22 16:00] VITALS: BP 114/58
[2020-10-22] MEDS ORDERED: LEVO250T69 PO ×2 (16:11→16:13)
[2020-10-22] MEDS ORDERED: CLIN300C8 PO (16:11)
[2020-10-22] MEDS ORDERED: levoFLOXacin 500 MG TAB PO ONE (16:15)
[2020-10-22] MEDS ORDERED: CLINDAMYCIN HCL 150 MG CAP PO ONE (16:15)
[2020-10-22 17:45] VITALS: BP 98/70
[2020-10-22 22:00] VITALS: BP 125/60
[2020-10-23 05:00] VITALS: BP 130/62
[2020-10-23] MEDS: metroNIDAZOLE 500MG/100ML 100 ML IV SCH (05:33)
[2020-10-23] MEDS: SODIUM CHLOR 0.9% PF (SALINE LOCK) 10ML VIAL/SYR IV SCH (05:33)
[2020-10-23] MEDS: ACCU-CHEK COMFORT CURVE STRIP VI SCH (05:57)
[2020-10-23] MEDS: InsuLIN REG 1unit/0.01ml Soln (100units/ml) SC SCH (05:57)
[2020-10-23] MEDS: HYDROcodone-ACET 5/325MG TAB PO PRN (06:23)
== END 2020-10-23 09:20 | disposition left against medical advice (07) | DRG 853 ==
LOC: EDBD 22:03 → ER 22:03 → TELE 22:04 → TELE-WESTW 10-20 20:39
PROVIDERS: ADMIT Nurse Practitioner Family; ATTEND Nurse Practitioner Family
PROC: 0JB70ZZ Excision of Back Subcutaneous Tissue and Fascia, Open Approach (ICD-10-PCS; principal; 2020-10-22 08:20)
DX: A41.9 Sepsis, unspecified organism (principal); L89.154 Pressure ulcer of sacral region, stage 4; J18.9 Pneumonia, unspecified organism; J96.01 Acute respiratory failure with hypoxia; N18.6 End stage renal disease; L89.324 Pressure ulcer of left buttock, stage 4; L89.314 Pressure ulcer of right buttock, stage 4; N17.9 Acute kidney failure, unspecified; E87.1 Hypo-osmolality and hyponatremia; I13.2 Hypertensive heart and chronic kidney disease with heart failure and with stage 5 chronic kidney disease, or end stage renal disease; J98.11 Atelectasis; N39.0 Urinary tract infection, site not specified; Z68.42 Body mass index [BMI] 45.0-49.9, adult; Z20.822 Contact with and (suspected) exposure to COVID-19; Z53.29 Procedure and treatment not carried out because of patient's decision for other reasons; R34 Anuria and oliguria; E11.65 Type 2 diabetes mellitus with hyperglycemia; E87.5 Hyperkalemia; Z86.16 Personal history of COVID-19; E11.22 Type 2 diabetes mellitus with diabetic chronic kidney disease; E78.5 Hyperlipidemia, unspecified; I50.9 Heart failure, unspecified; E66.01 Morbid (severe) obesity due to excess calories
CPT/HCPCS: 36415; 71045; 74176; 80048; 80053; 81001; 82962; 85007; 85027; 85610; 85730; 86850; 86900; 86901; 87040; 87070; 87075; 87076; 87077; 87086; 87088; 87186; 87205; 87426; 96365; 96367; 96372; 96375; G0378; J0330; J0690; J0696; J1815; J2001; J2250; J2405; J2704; J3490

== ENCOUNTER 2020-12-21 05:24 | Inpatient (IN) | payer OTHER, MEDICAID ==
[~2020-12-21] VITALS: Ht 165.1 cm; Wt 94.2 kg
[~2020-12-21 05:24] MED LIST changes: +ALPH600C2 PO; +ASCO100076 PO; +BIOT10TA2 PO; +CHOL20002 PO; +CLIN300C8 PO; +COEN100C15 PO; +DOCU100T15 PO; -DOXY-286 PO; +FER325T PO; -FERR28TA2 PO; -FURO1TAB31 PO; +INSU100I51 SC; -INSUINJ2 SC; +LEVO250T69 PO; +LIRA18IN2 SUBCUT; -LISI-648 PO; +LORA-622 PO; +MAGN400T40 PO; -OMEP20CA74 PO; -POTA10TA51 PO
[2020-12-21 07:56] LABS: Eosinophils # (auto) 0 10 ^3/uL (0-0.8); Red Cell Distribution Width 18.8 % (11.8-14.3)
[2020-12-21 07:58] LABS: Basophils # (auto) 0.2 10 ^3/uL (0-0.2); Basophils % (auto) 1.1 % (0.0-2.0); Eosinophils % (auto) 0.3 % (0.0-7.0); Hematocrit 33.8 % (36.0-46.0); Hemoglobin 10.6 g/dL (12.2-16.2); Lymphocytes # (auto) 2.2 10 ^3/uL (0.4-5.4); Lymphocytes % (auto) 14.1 % (10.0-50.0); Mean Corpuscular Hemoglobin 21.8 pg (28.0-32.0); Mean Corpuscular Hgb Conc. 31.2 g/dL (32.0-36.0); Mean Corpuscular Volume 69.7 fL (80.0-100.0); Monocytes # (auto) 1.1 10 ^3/uL (0-1.3); Monocytes % (auto) 6.9 % (0.0-12.0); Neutrophils # (auto) 12.3 10 ^3/uL (1.6-8.6); Neutrophils % (auto) 77.6 % (37.0-80.0); Platelet Count (auto) 412 10^3/uL (140-450); Red Blood Cells 4.85 10^6/uL (4.0-5.20); White Blood Cell 15.8 10^3/uL (4.4-10.8)
[2020-12-21] MEDS ORDERED: LORazepam 2MG/ML-1ML VIAL IM ONE (08:00)
[2020-12-21 08:01] LABS: Albumin 2.4 g/dL (3.4-5.0); Anion Gap 10 (5-15); Blood Urea Nitrogen 30 mg/dL (7-18); Calcium 9.3 mg/dL (8.5-10.1); Carbon Dioxide 22 mmol/L (21-32); Chloride 107 mmol/L (98-107); Glucose 170 mg/dL (74-106); INR 0.99 (0.9-1.15); Partial Thromboplastin Time 28.9 sec (23.0-31.2); Potassium 4.2 mmol/L (3.5-5.1); Sodium 139 mmol/L (136-145)
[2020-12-21 08:06] LABS: Alanine Aminotransferase 8 U/L (13-56); Alkaline Phosphatase 130 U/L (45-117); Aspartate Aminotransferase 8 U/L (15-37); BUN/Creatinine Ratio 21.9; Bilirubin, Total 0.3 mg/dL (0.2-1.0); GFR African American 49 mL/min; GFR Non-African American 41 mL/min; Lactic Acid w/Reflex 2.6 mmol/L (0.4-2.0); Total Protein 7.4 g/dL (6.4-8.2)
[2020-12-21] MEDS ORDERED: cefTRIAXone 1GM/50ML D5W 50 ML IV ONE (08:30)
[2020-12-21] MEDS ORDERED: CLINDAMYCIN 600MG IV 50 ML IV ONE (08:30)
[2020-12-21] MEDS ORDERED: LORA-154 PO (09:50)
[2020-12-21] MEDS ORDERED: FURO40TA4 PO (09:50)
[2020-12-21] MEDS ORDERED: FERR324T4 PO (09:50)
[2020-12-21] MEDS ORDERED: OMEP-260 PO (09:50)
[2020-12-21] MEDS ORDERED: HYDR1CAP27 PO (09:50)
[2020-12-21] MEDS ORDERED: TADA20TA48 PO (09:50)
[2020-12-21] MEDS ORDERED: AMBR5TAB3 PO (09:50)
[2020-12-21] MEDS ORDERED: IOHEXOL 350 MG/ML 100ML IJ ONE (09:51)
[2020-12-21] MEDS ORDERED: SODIUM CHLORIDE 0.9% 1,000 ML IV ONE ×2 (10:00)
[2020-12-21] MEDS ORDERED: MORPHINE SULF INJ 2 MG/ML SYRINGE 1ML IV PRN ×2 (10:45)
[2020-12-21] MEDS ORDERED: DOCUSATE SOD 100 MG CAP PO PRN (10:45)
[2020-12-21] MEDS ORDERED: METOCLOPRAMIDE HCL 5MG/ml INJ 2ml VIAL IV PRN (10:45)
[2020-12-21] MEDS ORDERED: ALUM & MAG HYDROX-SIMETH LIQ(MAALOX) 30 ML PO PRN (10:45)
[2020-12-21] MEDS ORDERED: HYDROcodone-ACET 5/325MG TAB PO PRN (10:45)
[2020-12-21] MEDS ORDERED: NITROGLYCERIN 0.4 MG SL TAB SL PRN (10:45)
[2020-12-21] MEDS ORDERED: DEXTROSE (50%) 50ML SYRG IV PRN (10:45)
[2020-12-21] MEDS ORDERED: ACETAMINOPHEN 325 MG TAB PO PRN (10:45)
[2020-12-21] MEDS: InsuLIN REG 1unit/0.01ml Soln (100units/ml) SC SCH ×2 (11:30→17:00)
[2020-12-21] MEDS: ACCU-CHEK COMFORT CURVE STRIP VI SCH ×3 (11:35→20:49)
[2020-12-21 12:50] VITALS: BP 129/62
[2020-12-21 13:33] LABS: Urine Bacteria NONE SEEN /hpf (None Seen); Urine Blood 3+ /uL (Negative); Urine Hyaline Cast FEW /lpf (0 - 2); Urine Specific Gravity 1.025 (1.001-1.035); Urine WBC 11 /hpf (0 - 5)
[2020-12-21 13:59] LABS: Alcohol, Urine < 3.0 mg/dL (0-10); Amphetamine Screen, Urine NEGATIVE (NEGATIVE); Barbiturate Scree,Urine NEGATIVE (NEGATIVE); Benzodiazephine Screen, Urine NEGATIVE (NEGATIVE); Cannabinoid Screen, Urine NEGATIVE (NEGATIVE); Cocaine Screen, Urine NEGATIVE (NEGATIVE); Opiate Scree,Urine POSITIVE (NEGATIVE); Phencyclidine Screen, Urine NEGATIVE (NEGATIVE)
[2020-12-21] MEDS ORDERED: LORazepam 2MG/ML-1ML VIAL IV PRN (14:45)
[2020-12-21] MEDS: D5W/SOD CHL 0.45% 1,000 ML IV SCH (15:02)
[2020-12-21] MEDS: PIPERACILLIN-TAZOB 3.375GM 100 ML IV SCH ×2 (15:03→18:25)
[2020-12-21 16:42] VITALS: BP 110/59
[2020-12-21 20:00] VITALS: BP 123/47
[2020-12-21 21:47] VITALS: BP 125/69
[2020-12-21] MEDS ORDERED: InsuLIN REG 1unit/0.01ml Soln (100units/ml) SC SCH (22:00)
[2020-12-22] MEDS: PIPERACILLIN-TAZOB 3.375GM 100 ML IV SCH ×4 (00:45→18:04)
[2020-12-22] MEDS: D5W/SOD CHL 0.45% 1,000 ML IV SCH (03:25)
[2020-12-22 05:00] VITALS: BP 132/51
[2020-12-22] MEDS: ACCU-CHEK COMFORT CURVE STRIP VI SCH ×3 (05:51→17:00)
[2020-12-22] MEDS: InsuLIN REG 1unit/0.01ml Soln (100units/ml) SC SCH ×3 (05:53→17:00)
[2020-12-22 07:15] LABS: Eosinophils # (auto) 0.1 10 ^3/uL (0-0.8); Hematocrit 30.4 % (36.0-46.0); Monocytes # (auto) 1.3 10 ^3/uL (0-1.3); Neutrophils # (auto) 6.9 10 ^3/uL (1.6-8.6)
[2020-12-22 07:22] LABS: Basophils # (auto) 0.1 10 ^3/uL (0-0.2); Basophils % (auto) 0.5 % (0.0-2.0); Eosinophils % (auto) 1.1 % (0.0-7.0); Hemoglobin 9.7 g/dL (12.2-16.2); Lymphocytes # (auto) 3.1 10 ^3/uL (0.4-5.4); Lymphocytes % (auto) 26.8 % (10.0-50.0); Mean Corpuscular Hemoglobin 22.5 pg (28.0-32.0); Mean Corpuscular Hgb Conc. 31.9 g/dL (32.0-36.0); Mean Corpuscular Volume 70.3 fL (80.0-100.0); Monocytes % (auto) 11.8 % (0.0-12.0); Neutrophils % (auto) 59.8 % (37.0-80.0); Platelet Count (auto) 394 10^3/uL (140-450); Red Blood Cells 4.33 10^6/uL (4.0-5.20); Red Cell Distribution Width 18.9 % (11.8-14.3); White Blood Cell 11.5 10^3/uL (4.4-10.8)
[2020-12-22 07:43] LABS: Potassium 3.8 mmol/L (3.5-5.1)
[2020-12-22 07:56] LABS: BUN/Creatinine Ratio 18.8
[2020-12-22] MEDS ORDERED: DOXY-332 PO (10:56)
== END 2020-12-22 21:39 | DRG 70 ==
LOC: ER 05:24 → EDBD 05:24 → OVERFLOW 05:25 → EAST 12:36
PROVIDERS: ADMIT Hospitalist; ATTEND Hospitalist
PROC: 05HB33Z Insertion of Infusion Device into Right Basilic Vein, Percutaneous Approach (ICD-10-PCS; principal; 2020-12-21)
PROC: B54MZZA Ultrasonography of Right Upper Extremity Veins, Guidance (ICD-10-PCS; 2020-12-21)
DX: G93.41 Metabolic encephalopathy (principal); L89.154 Pressure ulcer of sacral region, stage 4; N18.6 End stage renal disease; N39.0 Urinary tract infection, site not specified; E44.0 Moderate protein-calorie malnutrition; I13.2 Hypertensive heart and chronic kidney disease with heart failure and with stage 5 chronic kidney disease, or end stage renal disease; Z20.822 Contact with and (suspected) exposure to COVID-19; L89.629 Pressure ulcer of left heel, unspecified stage; L89.619 Pressure ulcer of right heel, unspecified stage; E11.65 Type 2 diabetes mellitus with hyperglycemia; E11.22 Type 2 diabetes mellitus with diabetic chronic kidney disease; I50.9 Heart failure, unspecified; Z82.49 Family history of ischemic heart disease and other diseases of the circulatory system; Z83.3 Family history of diabetes mellitus; Z74.01 Bed confinement status
CPT/HCPCS: 36415; 70450; 71045; 71275; 80048; 80053; 80307; 81001; 82962; 83605; 84484; 85025; 85379; 85610; 85730; 87040; 87077; 87086; 87186; 87205; 87426; 92610; 93005; 99291; G0378; J0696; J1815; J2543; J3490

== ENCOUNTER 2023-12-06 13:08 | Emergency (ER) | payer MEDICARE, MEDICAID ==
[~2023-12-06] VITALS: Ht 165.1 cm; Wt 109.0 kg
[~2023-12-06 13:08] MED LIST changes: -ALPH600C2 PO; -BIOT10TA2 PO; -CLIN300C8 PO; -COEN100C15 PO; +DOXY-448 PO; -FER325T PO; +FERR324T4 PO; +GABA-1250 PO; -GABA300C10 PO; -LEVO250T69 PO; -LIRA18IN2 SUBCUT; +LORA-483 PO; -LORA-622 PO; +OMEP1CAP70 PO; -SIMV-8 PO; +SIMV20TA20 PO; +TADA20TA48 PO
[2023-12-06 15:42] VITALS: BP 164/112; PULSE 76; RESP 16; TEMP 99.2; O2SAT 93
== END 2023-12-06 16:53 | disposition left against medical advice (07) ==
LOC: EDBD 13:08 → ER 13:08
DX: R31.9 Hematuria, unspecified (principal); N32.9 Bladder disorder, unspecified; I13.2 Hypertensive heart and chronic kidney disease with heart failure and with stage 5 chronic kidney disease, or end stage renal disease; E11.22 Type 2 diabetes mellitus with diabetic chronic kidney disease; N18.6 End stage renal disease; I50.9 Heart failure, unspecified; Z99.2 Dependence on renal dialysis; E78.5 Hyperlipidemia, unspecified; Z79.3 Long term (current) use of hormonal contraceptives; Z79.899 Other long term (current) drug therapy; Z79.4 Long term (current) use of insulin
CPT/HCPCS: 74176

== ENCOUNTER 2024-05-04 13:05 | Emergency (ER) | payer MEDICARE, MEDICAID ==
[~2024-05-04] VITALS: Ht 162.6 cm; Wt 81.8 kg
[~2024-05-04 13:05] MED LIST changes: -TADA20TA48 PO; +[UNRECOGNIZED DRUG - CODE] PO
[2024-05-04 13:34] VITALS: PULSE 94; RESP 15; O2SAT 90
[2024-05-04 14:13] LABS: Hematocrit 54.6 % (36.0-46.0); Hemoglobin 17.1 g/dL (12.2-16.2); Mean Corpuscular Hemoglobin 22.8 pg (28.0-32.0); Mean Corpuscular Hgb Conc. 31.3 g/dL (32.0-36.0); Mean Corpuscular Volume 72.8 fL (80.0-100.0); Red Cell Distribution Width 19.6 % (11.8-14.3); White Blood Cell 18.3 10^3/uL (4.4-10.8)
[2024-05-04] MEDS: SODIUM CHLORIDE 0.9% 1,000 ML IV ONE ×2 (14:14→15:30)
[2024-05-04 14:15] LABS: Band Neutrophils % (manual) 0; Basophils % (manual) 0 (0.0-2.0); Eosinophils % (manual) 0 (0-7); Metamyelocytes % 0; Myelocytes % 0; Promyelocytes % 0; Reactive Lymphocytes 0
[2024-05-04 14:35] LABS: Free T3 2.11 pg/mL (2.3-4.2); Free T4 (Free Thyroxine) 1.11 ng/dL (0.89-1.76)
[2024-05-04 14:52] LABS: Blast Cells 2; Lymphocytes % (manual) 16 (10.0-50.0); Monocytes % (manual) 4 (0-12)
[2024-05-04 14:53] LABS: Hypochromia Moderate; Platelet Estimate Adequate
[2024-05-04 15:01] LABS: INR 1.08 (0.9-1.15); Partial Thromboplastin Time 29.7 SEC (24.5-34.5); Prothrombin Time 11.4 sec (9.3-11.8)
[2024-05-04 15:13] LABS: Albumin 3.7 g/dL (3.2-4.8); Alkaline Phosphatase 92 U/L (46-116); Anion Gap 12 (5-15); Aspartate Aminotransferase 11 U/L (13-40); BUN/Creatinine Ratio 12.4 (10.0-20.0); Blood Urea Nitrogen 21 mg/dL (9-23); Carbon Dioxide 19 mmol/L (20-30); Chloride 106 mmol/L (98-107); Glucose 136 mg/dL (74-106); Magnesium 1.6 mg/dL (1.6-2.6); Sodium 137 mmol/L (136-145)
[2024-05-04 15:14] LABS: Bilirubin, Total 0.7 mg/dL (0.2-1.0); Total Protein 6.6 g/dL (5.7-8.2)
[2024-05-04 15:16] LABS: Alanine Aminotransferase < 9 U/L (7-40)
[2024-05-04 16:14] LABS: Urine Bacteria FEW /hpf (None Seen); Urine Blood 3+ /uL (Negative); Urine Clarity Clear (Clear); Urine Color Yellow (Yellow); Urine Hyaline Cast FEW /lpf (0 - 2); Urine Protein, UAD 3+ (Negative); Urine Specific Gravity 1.023 (1.001-1.035); Urine Urobilinogen Normal (Negative); Urine WBC 5 /hpf (0 - 5)
[2024-05-04 18:24] VITALS: BP 170/77; PULSE 88; RESP 18; TEMP 98; O2SAT 95
== END 2024-05-04 18:35 | disposition home or self-care (01) ==
LOC: EDBD 13:05 → ER 13:08
DX: F43.20 Adjustment disorder, unspecified (principal); E86.0 Dehydration; R63.0 Anorexia; E78.5 Hyperlipidemia, unspecified; E11.22 Type 2 diabetes mellitus with diabetic chronic kidney disease; I13.2 Hypertensive heart and chronic kidney disease with heart failure and with stage 5 chronic kidney disease, or end stage renal disease; I50.89 Other heart failure; N18.6 End stage renal disease; Z68.31 Body mass index [BMI] 31.0-31.9, adult
CPT/HCPCS: 36415; 71045; 80053; 81001; 83735; 84439; 84443; 84481; 84484; 85007; 85027; 85610; 85730; 93005; 96360; 96361; 99285; J7030

== ENCOUNTER 2025-07-27 12:18 | Outpatient (CLI) | payer MEDICARE, MEDICAID ==
[2025-07-27 12:12] VITALS: BP 115/68; PULSE 71; RESP 20; O2SAT 90
[~2025-07-27 12:18] MED LIST changes: -DOXY-448 PO; +DOXY100C79 PO
[2025-07-27] MEDS: BACITRACIN TOP OINT 1 UD PKG TOP ONE ×2 (12:29→12:30)
== END 2025-07-27 17:00 | disposition home or self-care (01) ==
LOC: CHF HDHVI 12:18
PROVIDERS: ATTEND Internal Medicine Cardiovascular Disease
DX: Z01.818 Encounter for other preprocedural examination (principal); S91.302A Unspecified open wound, left foot, initial encounter; I87.2 Venous insufficiency (chronic) (peripheral); X58.XXXA Exposure to other specified factors, initial encounter; Y93.89 Activity, other specified; Y92.89 Other specified places as the place of occurrence of the external cause; Y99.8 Other external cause status
CPT/HCPCS: G0463

== ENCOUNTER 2025-08-20 19:03 | Inpatient (IN) | payer MEDICARE, MEDICAID ==
[~2025-08-20] VITALS: Ht 172.7 cm; Wt 123.5 kg
--- NOTE | 2025-08-20 19:11 | ED.PDOC ---
SOB-HPI HPI Comments 75 y.o female presents to the ED via EMS for a chief complaint of SOB that started one day ago but has worsened and is now associated with back and mid sternal non radiating chest pain. EMS reports patient is on 2 liters of oxygen via NC at home due to hx of COPD however daughter increased to 5 liters and is still saturating at 74%. The paramedics placed patient on CPAP and remains at a saturation of 81% with RR of 30-40 per minute. Patient reports compliance to medication. No other information provided at this time. Vitals: Temp: BP: HR: RR: 30-40 SPO2: 81% on CPAP Past medical history: CHF, COPD 9with 2 liters of supplemented home O2 NC), anxiety, DM, ESRD, HTN Past surgical history: Unobtainable at this time. HPI: Poor Historian. Patient was evaluated immediately upon arrival. Patient was switched to a BiPAP machine. IV access established. Medications initiated. Vital signs and pulse ox improved. REVIEW OF SYSTEMS: CONSTITUTIONAL: Denies acute: fever, diaphoresis, chills, HEAD: Denies acute: headache, photophobia Eyes: Denies acute: Double vision, vision loss, eye pain, eye discharge. EARS: Denies acute: tinnitus, hearing loss, ear discharge, ear pain, THROAT: Denies acute: sore throat, swelling, difficulty swallowing , pain with swallowing, change in voice. NECK: Denies acute: neck pain, neck swelling, stiff neck. HEART: Denies acute : chest pain, palpitations, LUNGS: Denies acute: wheezing, cough, hemoptysis ABDOMEN: Denies acute: abdominal pain, Nausea, Vomiting, diarrhea, melena , hematemesis, hematochezia SKIN: Denies acute: rash, redness, lesions, itchiness. EXTREMITIES: Denies acute: calf pain, numbness, tingling, weakness, denies pain in extremity. Denies acute: Low back pain. Neuro: Denies acute: focal neurological deficit, motor or sensory focal neurological deficit, tremors, seizure like activity, confusion, dizziness, change in mental status, loss of bowel or bladder function, cauda equina like symptoms. : Denies acute: dysuria, hematuria, flank pain, increase in urinary frequency. PSYCH: Denies acute: hallucination, suicidal ideation, homicidal ideation. FEMALE: Denies acute: abnormal vaginal bleeding, foul odor, unusual discharge. PHYSICAL EXAM: General: ---moderate to severe-----acute distress, awake and alert. Head: normocephalic, atraumatic. No raccoon's eyes, no hatfield sign. Neck: supple, trachea is midline, no swelling. Throat: Normal phonation. Eyes:, no erythema, no purulent discharge, no proptosis, no icterus. Heart: regular rate, regular rhythm, no significant murmur appreciated. Lungs: Moderate apparent respiratory distress, No wheezing, no rhonchi, no crackles. No stridors Clear to auscultation bilaterally. Abdomen: non tender to palpation, non distended, soft, no guarding, no rebound, + bowel sounds. Obese Neuro: Awake, Alert, oriented to name, self, situation, follows commands GCS=15. Speech is normal. Skin: no petechia, no purpura, no cyanosis, non-pale, not jaundice. Lower extremities: --2/4 bilateral - Pitting edema no deformity, no focal swelling, no calf TTP. Makes eye contact. moves all four extremities. Face: no apparent facial droop. ED COURSE: DISCLAIMER: This medical document was created using an electronic medical record system with voice recognition software and computerized dictation system. Although this document has been carefully reviewed, there might still be some phonetic and typographical errors. Occasional wrong-word or "sound-alike" substitutions may have occurred due to the inherent limitations of voice recognition software. These areas are purely typographical due to imperfections of the software programs and do not reflect any compromise in the patient's medical care. Please read the chart carefully and recognize, using context, where these substitutions have occurred. Chief Complaint: Shortness of Breath Time Seen by MD: 19:00 Primary Care Provider: RAMIN Reviewed notes: Nurses Notes, Equal Opportunity Director Notes, Medications, Allergies Information Source: Emergency Med Personnel Mode of Arrival: EMS Past Medical History PAST MEDICAL HISTORY: CHF, COPD, DM, ESRD, High Lipids, HTN Surgical History: DATABASE REPORT WRITER History: No Pertinent DATABASE REPORT WRITER History Family History Family History: Reviewed,noncontributory to illness Social History Smoker: Non-Smoker Alcohol: Denies ETOH Use Drugs: Denies Drug Use Lives In: Home Was a procedure done? Was a procedure done?: Yes Sedation Sedation?: Yes Informed consent obtained: Yes Sedation start time: 01:50 Sedation end time: 02:10 Sedation total time: 20 minutes Intubation Indication: Respiratory Insufficiency (acute respiratory failure, hypoxemia ), Airway Protection Prep: Preoxygenation Pretreated with: Nothing Medicated with: Other (80mg of rocuronium bromid and 20mg etomidate) Intubation Approach: Orotracheal (7.5) Intubation size: cm (24 at the lip) Informed consent obtained: Yes Risks/benefits/alt described: Yes Differential Dx Differential Diagnosis: Bronchitis, CHF, COPD, Hyponatremia, Pneumonia, Pneumothorax, Pulmonary Embolism, Respiratory Distress, Sinusitis, URI, Other (DDx include ACS, unstable angina, anxiety, PE, pneumothroax, neoplasm, cardiac ischemia, COPD, asthma, CHF, pleural effusion, tobacco abuse, pneumonia, hypoxia, hypercapnia, anemia., infection/sepsis., pulmonary edema. Asthma, Cardiac tamponade, infection.) X-Ray, Labs, Meds, VS Vital Signs Date Time Temp Pulse Resp B/P (MAP) Pulse Ox O2 Delivery O2 Flow Rate FiO2 08/20/25 23:45 73 20 132/53 (79) 95 08/20/25 23:30 157/61 08/20/25 23:30 73 20 157/61 (93) 95 08/20/25 23:30 73 157/61 95 Facial BiPAP Mask 100 08/20/25 23:15 77 19 146/64 (91) 94 08/20/25 23:06 74 15 162/63 (96) 93 08/20/25 22:45 71 20 154/65 (94) 95 08/20/25 22:30 74 17 171/69 (103) 93 08/20/25 22:30 171/69 08/20/25 22:15 69 18 152/64 (93) 94 08/20/25 22:00 69 20 160/62 (94) 94 08/20/25 21:45 71 20 163/61 (95) 94 08/20/25 21:30 74 17 169/66 (100) 93 08/20/25 21:30 169/66 08/20/25 21:30 72 169/66 96 Facial BiPAP Mask 75 11/22/25 21:00 97.7 77 18 166/69 (101) 97 97.7 08/20/25 20:52 81 164/108 96 Facial BiPAP Mask 100 08/20/25 20:42 18 96 Bi-Pap+ 100 100 08/20/25 19:42 97 Bi-Pap+ 100 100 08/20/25 19:42 82 184/72 Facial BiPAP Mask 100 08/20/25 19:42 21 97 Bi-Pap+ 100 100 08/20/25 19:31 184/72 08/20/25 19:30 98.0 84 19 184/72 (109) 97 98.0 08/20/25 19:22 83 18 97 08/20/25 19:04 97.6 90 35 143/93 81 97.6 Lab Test 08/20/25 23:02 08/20/25 22:51 08/20/25 21:22 08/20/25 21:20 Range/Units Blood Gas Specimen Type Arterial Arterial Blood Gas Sample Site Left radial Right radial Blood Gas Patient Temperature 37.0 37.0 Arterial Blood Date Drawn [id number] Arterial Blood pH 7.021 *L 7.013 *L 7.350-7.450 Arterial Blood Partial Pressure CO2 80.2 *H 80.2 *H 32.0-45.0 mmHg Arterial Blood Partial Pressure O2 66.1 L 84.8 83.0-108.0 mmHg Arterial Blood HCO3 20.3 L 19.9 L 21.0-28.0 mmol/L Arterial Blood Oxygen Saturation 88.4 L 93.9 L 94.0-98.0 % Arterial Blood Base Excess -12.5 L -13.0 L -2.0-3.0 mmol/L Arterial Blood Oxyhemoglobin 85.2 L 90.1 L 94.0-98.0 % Arterial Blood Carboxyhemoglobin 3.0 H 3.4 H 0.5-1.5 % Arterial Blood Methemoglobin 0.6 0.6 0.0-1.5 % Arterial Blood Deoxyhemoglobin 11.2 H 5.9 H 0.0-5.0 % Ulises Test Yes Yes Blood Gas Total Hemoglobin 16.20 H 16.20 H 12.0-16.0 g/dL Blood Gas Set Respiration Rate 20.0 14.0 Blood Gas Modality Mask - bipap Mask - bipap Blood Gas Spontaneous Rate 24 18 FiO2 % 75.0 100.0 Blood Gas EPAP 8 8 Blood Gas IPAP 18 16 Blood Gas Critical Value Read Back Yes Yes Blood Gas Notified Whom Leann, rylie do rylie Whalen do Blood Gas Notified Time [id number] Blood Gas Notified By Troponin I High Sensitivity 27 23 </=34 ng/L Potassium Level 7.2 *H 3.5-5.1 mmol/L Test 08/20/25 20:30 08/20/25 19:50 Range/Units Urine Color Light-orange Yellow Urine Clarity Turbid H Clear Urine pH 6.0 5.0-9.0 Urine Specific [place] 1.018 1.001-1.035 Urine Protein 3+ H Negative Urine Ketones Negative Negative Urine Blood 3+ H Negative /uL Urine Nitrite Negative Negative Urine Bilirubin Negative Negative Urine Urobilinogen Normal Negative mg/dL Urine Leukocyte Esterase Negative Negative /uL Urine RBC 362 0 - 4 /hpf Urine Microscopic WBC 9 H 0-5 /HPF Urine Squamous Epithelial Cells Few <5 /hpf Urine Bacteria None seen None Seen /hpf Urine Glucose 1+ H Normal mg/dL White Blood Count 11.3 H 4.4-10.8 10^3/uL Red Blood Count 8.14 H 4.0-5.20 10^6/uL Hemoglobin 15.1 12.2-16.2 g/dL Hematocrit 56.7 H 36.0-46.0 % Mean Corpuscular Volume 69.7 L 80.0-100.0 fL Mean Corpuscular Hemoglobin 18.6 L 28.0-32.0 pg Mean Corpuscular Hemoglobin Concent 26.7 L 32.0-36.0 g/dL Red Cell Distribution Width 27.6 H 11.8-14.3 % Platelet Count 106 L 140-450 10^3/uL Mean Platelet Volume 8.7 6.9-10.8 fL Neutrophils (%) (Auto) 76.4 37.0-80.0 % Lymphocytes (%) (Auto) 13.4 10.0-50.0 % Monocytes (%) (Auto) 8.9 0.0-12.0 % Eosinophils (%) (Auto) 0.5 0.0-7.0 % Basophils (%) (Auto) 0.8 0.0-2.0 % Neutrophils # (Auto) 8.6 1.6-8.6 10 ^3/uL Lymphocytes # (Auto) 1.5 0.4-5.4 10 ^3/uL Monocytes # (Auto) 1.0 0-1.3 10 ^3/uL Eosinophils # (Auto) 0.1 0-0.8 10 ^3/uL Basophils # (Auto) 0.1 0-0.2 10 ^3/uL Nucleated Red Blood Cells 3.7 % Sodium Level 145 136-145 mmol/L Potassium Level 6.5 *H 3.5-5.1 mmol/L Chloride Level 112 H 98-107 mmol/L Carbon Dioxide Level 23 20-31 mmol/L Anion Gap 10 5-15 Blood Urea Nitrogen 46 H 9-23 mg/dL Creatinine 4.09 H 0.550-1.02 mg/dL Glomerular Filtration Rate Calc 11 >90 mL/min BUN/Creatinine Ratio 11.2 10.0-20.0 Serum Glucose 113 H 74-106 mg/dL Lactic Acid Level 0.8 0.4-2.0 mmol/L Calcium Level 7.7 L 8.7-10.4 mg/dL Total Bilirubin 0.5 0.2-1.0 mg/dL Aspartate Amino Transferase (AST) 15 13-40 U/L Alanine Aminotransferase (ALT) 16 7-40 U/L Alkaline Phosphatase 177 H 46-116 U/L Troponin I High Sensitivity 24 </=34 ng/L B-Type Natriuretic Peptide 2515.41 0-100 pg/mL Total Protein 7.3 5.7-8.2 g/dL Albumin 3.5 3.2-4.8 g/dL Current Medications Medications (Trade) Dose Ordered Sig/Adri Route Start Time Stop Time Status Last Admin Furosemide (Lasix Injection) 60 mg ONCE ONCE IV 08/20/25 19:15 08/20/25 19:16 DC 08/20/25 19:31 Methylprednisolone Sodium Succinate (Solu Medrol) 125 mg ONCE ONCE IV 08/20/25 19:15 08/20/25 19:16 DC 08/20/25 19:28 Albuterol (Ventolin Medneb) 20 mg ONCE ONCE NEB 08/20/25 19:15 08/20/25 19:16 DC 08/20/25 19:40 Ipratropium [place] (Atrovent Medneb) 1 mg ONCE ONCE NEB 08/20/25 19:15 08/20/25 19:16 DC 08/20/25 19:41 Piperacillin Sod/ Tazobactam Sod 100 ml @ 100 mls/hr ONCE ONCE IV 08/20/25 19:45 08/20/25 20:44 DC 08/20/25 21:31 Nitroglycerin 250 ml @ 1.5 mls/hr Q24H ONCE IV 08/20/25 19:45 08/21/25 19:44 08/20/25 21:30 Insulin Human Regular (InsuLIN R) 10 units ONCE ONCE IV 08/20/25 21:00 08/20/25 21:01 DC 08/20/25 23:02 Dextrose 50 ml ONCE ONCE IV 08/20/25 21:00 08/20/25 21:01 DC 08/20/25 22:56 Sodium Bicarbonate 50 ml ONCE ONCE IV 08/20/25 21:00 08/20/25 21:01 DC 08/20/25 22:59 Calcium Gluconate/ Sodium Chloride 50 ml @ 120 mls/hr ONCE ONCE IV 08/20/25 21:00 08/20/25 21:24 DC 08/20/25 22:56 [place] [address] Ph: [phone] DIAGNOSTIC IMAGING Diagnostic Imaging Report : [id number] Signed PATIENT: ISAIAS THOMAS ACCT: [id number] UNIT: [id number] : 1950 LOC: ER ROOM / BED: / AGE / SEX: 75 / F ADM STATUS: REG ER SERVICE 08 ORDERING PHYSICIAN: ERICA WHALEN DO PROCEDURE(s): CXR1 - CHEST XRAY 1 VIEW REASON: SOB ORDER NUMBER(s): [id number], ACCESSION NUMBER(s): [id number] CHEST RADIOGRAPH Indication: SOB Technique: Single frontal view of the chest was obtained COMPARISON: XY CHEST PORTABLE on DOS: 05/04/24, CHEST PORTABLE on DOS: 12/21/20, CHEST PORTABLE on DOS: 10/22/20, CHEST XRAY 1 VIEW on DOS: 10/08/20 FINDINGS: Cardiac silhouette is enlarged. Diffuse prominence of the pulmonary vasculature and interstitium with hazy opacity throughout both mid and lower lungs. Small bilateral pleural effusions. Bones and soft tissues demonstrate no significant abnormality IMPRESSION: Moderate to severe pulmonary edema. ATED BY: JO LEDBETTER MD DICTATED DATE/TIME: 08/20/251958 SIGNED BY: JO LEDBETTER MD SIGNED DATE/TIME: 08/20/251958 CC: Time of 1ST Reevaluation: 19:06 Reevaluation 1ST: Unchanged Patient Education/Counseling: Other Family Education/Counseling: Other Comments MDM: patient presented with the above HPI.--acute respiratory failure----workup was initiated. patient was found with the above mentioned diagnosis. Patient was evaluated immediately upon arrival. the following medications were ordered: please refer to order lists of meds and tests obtained by myself Dr. Whalen. Patient ED course and VS have been stabilized. Patient has been reassessed in e ED and remained in a critical condition. Patient has been observed in the ED adequate length of time to insure impro vement/stability. Escalation of care considered: Consideration of escalation to observation or admission Patient was evaluated immediately upon arrival. Patient was placed from a CPAP to a BiPAP. Patient given Lasix and Solu-Medrol and DuoNeb treatment and started on nitroglycerin drip given her suspicion of pulmonary edema on initial presentation. Chest x-ray shows severe CHF. Patient was found with hyperkalemia. Hyperkalemia protocol was initiated. Empiric antibiotics initiated as well. Later a femoral central line was placed for access and multiple drips. ABGs were obtained and patient is not show any significant improvement. The decision to intubate the patient was made. Intubation was successful. Performed 1st by the resident under my supervision and then by myself. Patient was ADMITTED to the medicine team for further evaluation and treatment of their presentation. All the reports of any imaging studies that were ordered by myself were reviewed by myself. Departure 1 Departure Time of Disposition: 19:35 Impression: Primary Impression: Acute respiratory failure Additional Impressions: CHF exacerbation Hyperkalemia Pulmonary edema Disposition: ADMITTED INPATIENT Admit to: Tele Condition: Guarded Discharged With: Self Critical Care Note Critical Care Time?: Yes (90 min-critical care time only) Critical care comment: Due to a high probability of clinically significant, life threatening deterioration, the patient required my highest level of preparedness to intervene emergently and I personally spent this critical care time directly and personally managing the patient. This critical care time included obtaining a history; examining the patient; pulse oximetry; ordering and review of studies; arranging urgent treatment with development of a management plan; evaluation of patient's response to treatment; frequent reassessment; and, discussions with other providers. This critical care time was performed to assess and manage the high probability of imminent, life-threatening deterioration that could result in multi-organ failure. It was exclusive of separately billable procedures and treating other patients and teaching time. Please see my other sections and the rest of the note for further information on patient assessment and treatment. I personally scribed for ERICA WHALEN DO ([email or web address]) on 08/20/25 at 19:11. Electronically submitted by Prosper Gonzalez ([email or web address]). I personally scribed for ERICA WHALEN DO ([email or web address]) on 08/20/25 at 20:44. Electronically submitted by Prosper Gonzalez ([email or web address]). I personally scribed for ERICA WHALEN DO ([email or web address]) on 08/20/25 at 20:58. Electronically submitted by Prosper Gonzalez ([email or web address]). I personally scribed for ERICA WHALEN DO ([email or web address]) on 08/21/25 at 02:14. Electronically submitted by Prosper Gonzalez ([email or web address]). ERICA WHALEN DO Aug 20, 2025 19:11
[2025-08-20] MEDS: FUROSEMIDE INJECTION 10 ML ONE (19:26)
[2025-08-20] MEDS: methylPREDNISolone SOD SUCC 125 MG/2 ML VL ONE (19:26)
[2025-08-20] MEDS: methylPREDNISolone SOD SUCC 125 MG/2 ML VL IV ONE (19:28)
[2025-08-20] MEDS: ALBUTEROL SULF 2.5 MG/0.5ML(0.5%) NEB SOLN ONE (19:29)
[2025-08-20] MEDS: IPRATROPIUM BROM 0.5 MG/2.5ML INH SOL ONE (19:29)
[2025-08-20] MEDS: FUROSEMIDE 100 MG/10ML VIAL IV ONE (19:31)
[2025-08-20] MEDS: ALBUTEROL SULF 2.5 MG/0.5ML(0.5%) NEB SOLN NEB ONE (19:40)
[2025-08-20] MEDS: IPRATROPIUM BROM 0.5 MG/2.5ML INH SOL NEB ONE (19:41)
--- NOTE | 2025-08-20 20:02 | DVH ---
CHEST RADIOGRAPH Indication: SOB Technique: Single frontal view of the chest was obtained COMPARISON: XY CHEST PORTABLE on DOS: 05/04/24, CHEST PORTABLE on DOS: 12/21/20, CHEST PORTABLE on DOS: 10/22/20, CHEST XRAY 1 VIEW on DOS: 10/08/20 FINDINGS: Cardiac silhouette is enlarged. Diffuse prominence of the pulmonary vasculature and interstitium with hazy opacity throughout both mid and lower lungs. Small bilateral pleural effusions. Bones and soft tissues demonstrate no significant abnormality IMPRESSION: Moderate to severe pulmonary edema.
[2025-08-20] MEDS: NITROGLYCERIN 50MG/250ML 250 ML IV ONE ×2 (20:13→21:30)
[2025-08-20 20:25] LABS: Hemoglobin 15.1 g/dL (12.2-16.2); Mean Corpuscular Hemoglobin 18.6 pg (28.0-32.0); Mean Corpuscular Volume 69.7 fL (80.0-100.0)
[2025-08-20 20:26] LABS: Hematocrit 56.7 % (36.0-46.0); Nucleated Red Blood Cells % 3.7 %
[2025-08-20 20:41] LABS: Alanine Aminotransferase 16 U/L (7-40); Albumin 3.5 g/dL (3.2-4.8); Anion Gap 10 (5-15); BUN/Creatinine Ratio 11.2 (10.0-20.0); Carbon Dioxide 23 mmol/L (20-31); Total Protein 7.3 g/dL (5.7-8.2)
[2025-08-20 20:42] VITALS: RESP 18; O2SAT 96
[2025-08-20 20:42] LABS: Bilirubin, Total 0.5 mg/dL (0.2-1.0)
[2025-08-20 20:48] LABS: Alkaline Phosphatase 177 U/L (46-116); Blood Urea Nitrogen 46 mg/dL (9-23); Calcium 7.7 mg/dL (8.7-10.4); Chloride 112 mmol/L (98-107); Glucose 113 mg/dL (74-106); Sodium 145 mmol/L (136-145)
[2025-08-20 20:50] LABS: Potassium 6.5 mmol/L (3.5-5.1)
[2025-08-20 20:51] LABS: Urine Protein, UAD 3+ (Negative)
[2025-08-20 20:52] VITALS: BP 164/108; PULSE 81; O2SAT 96
[2025-08-20 21:30] VITALS: BP 169/66; PULSE 72; O2SAT 96
[2025-08-20] MEDS: PIPERACILLIN-TAZOB 3.375GM 100 ML IV ONE ×2 (21:30→21:31)
--- NOTE | 2025-08-20 21:49 | DVHNC2 ---
Central Line Recorder of insertion practice: Bag Shaker Occupation of demolitionist: Other (Resident) Indication: Hypotension, CVP monitoring, Volume resuscitation, Inability to obtain IV Room prepared for procedure: Yes Bag Shaker performed hand hygien: Yes Maximal sterile barrier precau: Mask/Eye shield, Sterile gown, Cap, Sterlie gloves, Large sterlie drape Skin Preparation: Chlorhexidine gluconate Skin preparation completely dr: Yes Insertion site: Left, Femoral, Line secured Central line catheter type: [id number] dialysis Central line exchanged over a: No Antiseptic ointment applied to: Yes Post Assessment: Proper placement Informed consent obtained: Yes Risks/benefits/alt described: Yes Notes Placed left femoral central line US guided under supervision of Dr Noriega Date of Service: Aug 20, 2025 Billing Provider: ERICA NORIEGA DO Common Visit Codes: 72719-[id number] INP/OBS CARE (HIGH), PROCEDURE ONLY Procedure Codes: 77798-WIKMKM NON-TUNNEL CV CATH SONAL BARRON RESIDENT Aug 20, 2025 21:49
[2025-08-20 21:51] LABS: Base Excess -13.0 mmol/L (-2.0-3.0)
[2025-08-20] MEDS: InsuLIN REG 1unit/0.01ml Soln (100units/ml) ONE (22:55)
[2025-08-20] MEDS: SODIUM BICARB 8.4% 50Meq/50ml SYR Vial IV ONE (22:55)
[2025-08-20] MEDS: DEXTROSE (50%) 50ML SYRG IV ONE (22:56)
[2025-08-20] MEDS: CALCIUM GLUC 1,000mg/50ml-NS 50 ML IV ONE ×2 (22:56)
[2025-08-20] MEDS: DEXTROSE 50% SYRINGE 50 ML IV ONE (22:56)
[2025-08-20] MEDS: SODIUM BICARB 8.4% 50Meq/50ml SYR INJ IV ONE (22:59)
[2025-08-20] MEDS: InsuLIN REG 1unit/0.01ml Soln (100units/ml) IV ONE (23:02)
[2025-08-20] MEDS: SODIUM ZIRCONIUM CYCL 10 GM PAK PO ONE (23:04)
[2025-08-20 23:15] LABS: Base Excess -12.5 mmol/L (-2.0-3.0)
[2025-08-20] MEDS ORDERED: ONDANSETRON HCL 4 MG/2 ML VIAL IV PRN (23:15)
[2025-08-20] MEDS ORDERED: MORPHINE SULFATE INJ 2 MG/ml SYRG IV PRN (23:15)
[2025-08-20] MEDS ORDERED: DEXTROSE (50%) 50ML SYRG IV PRN (23:15)
[2025-08-20] MEDS ORDERED: DOCUSATE SOD 100 MG CAP PO PRN (23:15)
[2025-08-20] MEDS ORDERED: NITROGLYCERIN 0.4 MG SL TAB SL PRN (23:15)
[2025-08-20] MEDS ORDERED: HYDROcodone-ACET 5/325MG TAB PO PRN (23:15)
--- NOTE | 2025-08-20 23:24 | DVHHP2 ---
History of Present Illness Reason for Visit: Acute respiratory failure History of Present Illness The patient is a 75-year-old female with past medical history of CHF, COPD, anxiety, diabetes mellitus, hyperlipidemia, and hypertension who presented to [facility] ED with complaint of shortness of breaths. As reported by EMS, patient has been experiencing nonradiating midsternal chest pain, difficulty breathing, desaturating on oxygen at 74%, getting worse that prompted this visit. Patient was placed on CPAP and O2 saturation improved to 88% EN route to our facility ED. Patient was seen and evaluated in the ED, laboratory data shows WBC 11.3, hemoglobin 15.1, hematocrit 56.7, platelets 106, sodium 145, potassium 6.5, BUN 46, creatinine 4.09, GFR 11, glucose 113, calcium 7.7, BNP 2515.41, total bilirubin 0.5, alkaline phos 177, troponin 24, lactic acid 0.8, blood pressure 184/72, trending down to 152/64, heart rate 72, temperature 97.6 F, O2 saturation 99% on BiPAP. Chest x-ray revealing moderate to severe pulmonary edema. Please see medication orders section in the computer. On my assessment, patient remains on BiPAP, no diaphoresis, dizziness, no diarrhea, nausea, vomiting, fever, no chills. Patient was admitted for further evaluation and medical management. Past Medical History CHF, COPD, Anxiety, DM, HLD, HTN Past Surgical History Family History Reviewed, noncontributory to the management of this case. Past Social History The patient lives at home, denies smoking, alcohol or illicit drugs abuse. Review of Systems Constitutional: Yes: Weakness, Other (Fatigue); No: Fever, Chills, Sweats, Malaise Eyes: No: Pain, Vision change, Conjunctivae inflammation, Eyelid inflammation, Other, Redness ENT: No: Ear pain, Ear discharge, Nose pain, Nose discharge, Nose congestion, Mouth pain, Mouth swelling, Throat pain, Throat swelling, Other Respiratory: Shortness of breath, Other (SOB at rest); No: Cough, Dry, SOB with excertion, Wheezing, Hemoptysis, Pleuritic Pain, Sputum, Wheezing Cardiovascular: Chest Pain; No: Palpitations, Orthopnea, Paroxysmal Noc. Dyspnea, Edema, Lt Headedness, Other Gastrointestinal: No: Nausea, Vomiting, Abdominal Pain, Diarrhea, Constipation, Melena, Hematochezia, Other Genitourinary: No Dysuria, No Frequency, No Incontinence, No Hematuria, No Retention; Other (Schuster catheter in place) Musculoskeletal: other (Bilateral leg discoloration); No: neck pain, shoulder pain, arm pain, back pain, hand pain, leg pain, foot pain Skin: Other (Left foot wound); No: Rash, Lesions, Jaundice, Bruising Neurological: No: Weakness, Numbness, Incoordination, Change in speech, Confusion, Seizures, Other Allergies: Coded Allergies: NO KNOWN ALLERGIES (Unverified , 12/21/20) Exam Vital Signs Vital Signs Date Time Temp Pulse Resp B/P (MAP) Pulse Ox O2 Delivery O2 Flow Rate FiO2 08/20/25 21:30 169/66 08/20/25 21:30 72 96 Facial BiPAP Mask 75 08/20/25 20:42 18 08/20/25 19:04 97.6 97.6 General Appearance: Alert, Cooperative, No acute distress, Other (Oriented x2) HEENT: Atraumatic, PERRLA, EOMI, Mucous membr. moist/pink Respiratory: Normal air movement, Other (On BiPAP) Cardiovascular: Regular rate, Normal S1, Normal S2, No murmurs Abdominal: Normal bowel sounds, Soft, No tenderness, No hepatospenomegaly, No masses Extremities: No clubbing, No cyanosis, Normal pulses, Other (Lower extremity discoloration) Skin: No rashes, No significant lesion Neuro: Normal speech, Normal tone, Sensation intact, Cranial nerves 3-12 NL, Reflexes 2+, Other (Generalized weakness) Psych/Mental Status: Mental status NL, Mood NL Labs/Xrays Labs Test 08/20/25 23:02 08/20/25 22:51 08/20/25 21:20 08/20/25 20:30 Range/Units Blood Gas Specimen Type Arterial Blood Gas Sample Site Left radial Blood Gas Patient Temperature 37.0 Arterial Blood Date Drawn Arterial Blood pH 7.021 *L 7.350-7.450 Arterial Blood Partial Pressure CO2 80.2 *H 32.0-45.0 mmHg Arterial Blood Partial Pressure O2 66.1 L 83.0-108.0 mmHg Arterial Blood HCO3 20.3 L 21.0-28.0 mmol/L Arterial Blood Oxygen Saturation 88.4 L 94.0-98.0 % Arterial Blood Base Excess -12.5 L -2.0-3.0 mmol/L Arterial Blood Oxyhemoglobin 85.2 L 94.0-98.0 % Arterial Blood Carboxyhemoglobin 3.0 H 0.5-1.5 % Arterial Blood Methemoglobin 0.6 0.0-1.5 % Arterial Blood Deoxyhemoglobin 11.2 H 0.0-5.0 % Ulises Test Yes Blood Gas Total Hemoglobin 16.20 H 12.0-16.0 g/dL Blood Gas Set Respiration Rate 20.0 Blood Gas Modality Mask - bipap Blood Gas Spontaneous Rate 24 FiO2 % 75.0 Blood Gas EPAP 8 Blood Gas IPAP 18 Blood Gas Critical Value Read Back Yes Blood Gas Notified Whom rylie Whalen do Blood Gas Notified Time [id number] Blood Gas Notified By Potassium Level 7.2 *H 3.5-5.1 mmol/L Urine Color Light-orange Yellow Urine Clarity Turbid H Clear Urine pH 6.0 5.0-9.0 Urine Specific [place] 1.018 1.001-1.035 Urine Protein 3+ H Negative Urine Ketones Negative Negative Urine Blood 3+ H Negative /uL Urine Nitrite Negative Negative Urine Bilirubin Negative Negative Urine Urobilinogen Normal Negative mg/dL Urine Leukocyte Esterase Negative Negative /uL Urine RBC 362 0 - 4 /hpf Urine Microscopic WBC 9 H 0-5 /HPF Urine Squamous Epithelial Cells Few <5 /hpf Urine Bacteria None seen None Seen /hpf Urine Glucose 1+ H Normal mg/dL Test 08/20/25 19:50 Range/Units White Blood Count 11.3 H 4.4-10.8 10^3/uL Red Blood Count 8.14 H 4.0-5.20 10^6/uL Hemoglobin 15.1 12.2-16.2 g/dL Hematocrit 56.7 H 36.0-46.0 % Mean Corpuscular Volume 69.7 L 80.0-100.0 fL Mean Corpuscular Hemoglobin 18.6 L 28.0-32.0 pg Mean Corpuscular Hemoglobin Concent 26.7 L 32.0-36.0 g/dL Red Cell Distribution Width 27.6 H 11.8-14.3 % Platelet Count 106 L 140-450 10^3/uL Mean Platelet Volume 8.7 6.9-10.8 fL Neutrophils (%) (Auto) 76.4 37.0-80.0 % Lymphocytes (%) (Auto) 13.4 10.0-50.0 % Monocytes (%) (Auto) 8.9 0.0-12.0 % Eosinophils (%) (Auto) 0.5 0.0-7.0 % Basophils (%) (Auto) 0.8 0.0-2.0 % Neutrophils # (Auto) 8.6 1.6-8.6 10 ^3/uL Lymphocytes # (Auto) 1.5 0.4-5.4 10 ^3/uL Monocytes # (Auto) 1.0 0-1.3 10 ^3/uL Eosinophils # (Auto) 0.1 0-0.8 10 ^3/uL Basophils # (Auto) 0.1 0-0.2 10 ^3/uL Nucleated Red Blood Cells 3.7 % Sodium Level 145 136-145 mmol/L Chloride Level 112 H 98-107 mmol/L Carbon Dioxide Level 23 20-31 mmol/L Anion Gap 10 5-15 Blood Urea Nitrogen 46 H 9-23 mg/dL Creatinine 4.09 H 0.550-1.02 mg/dL Glomerular Filtration Rate Calc 11 >90 mL/min BUN/Creatinine Ratio 11.2 10.0-20.0 Serum Glucose 113 H 74-106 mg/dL Lactic Acid Level 0.8 0.4-2.0 mmol/L Calcium Level 7.7 L 8.7-10.4 mg/dL Total Bilirubin 0.5 0.2-1.0 mg/dL Aspartate Amino Transferase (AST) 15 13-40 U/L Alanine Aminotransferase (ALT) 16 7-40 U/L Alkaline Phosphatase 177 H 46-116 U/L B-Type Natriuretic Peptide 2515.41 0-100 pg/mL Total Protein 7.3 5.7-8.2 g/dL Albumin 3.5 3.2-4.8 g/dL PATIENT: ISAIAS THOMAS ACCT: [id number] UNIT: [id number] : 1950 LOC: ER ROOM / BED: / AGE / SEX: 75 / F ADM STATUS: REG ER SERVICE 08 ORDERING PHYSICIAN: ERICA WHALEN DO PROCEDURE(s): CXR1 - CHEST XRAY 1 VIEW REASON: SOB ORDER NUMBER(s): [id number], ACCESSION NUMBER(s): [id number] CHEST RADIOGRAPH Indication: SOB Technique: Single frontal view of the chest was obtained COMPARISON: XY CHEST PORTABLE on DOS: 05/04/24, CHEST PORTABLE on DOS: 12/21/20, CHEST PORTABLE on DOS: 10/22/20, CHEST XRAY 1 VIEW on DOS: 10/08/20 FINDINGS: Cardiac silhouette is enlarged. Diffuse prominence of the pulmonary vasculature and interstitium with hazy opacity throughout both mid and lower lungs. Small bilateral pleural effusions. Bones and soft tissues demonstrate no significant abnormality IMPRESSION: Moderate to severe pulmonary edema. SEPSIS Sepsis Screen Date sepsis recognized/suspect: Aug 20, 2025 Time Sepsis recognized/suspect: 1908 Recent Procedure: No On Antibiotic Therapy: No Respiratory Rate >20: Yes Heart Rate >90: Yes Temp<36 C (96.8 F) or >38.3 C: No SBP <90 or MAP <65 mmHG: No New Acute Mental Status Change: No Is the patient on CPAP, BIPAP,: Yes Physician Orders Troponin-I Hs (08/20/25 22:09) Chest Xray 1 View (08/20/25 19:09) Nitroglycerin 50mg/250ml (Tridil) (08/20/25 19:45) Potassium (08/21/25 00:54) BIPAP (08/20/25 19:50) Abg W/ Co-Ox (08/20/25 20:59) BIPAP (08/20/25 21:30) Abg W/ Co-Ox (08/20/25 22:15) Potassium (08/20/25 00:15) Methylprednisolone Sod Succ (Solu Medrol (08/21/25 06:00) Famotidine Injection (Pepcid Injection) (08/21/25 10:00) Albuterol Medneb (Ventolin Medneb) (08/20/25 23:15) Ipratropium Medneb (Atrovent Medneb) (08/20/25 23:15) *Dr. Oliveros [facility] (08/20/25 23:08) Furosemide Injection (Lasix Injection) (08/21/25 10:00) *Consult (08/20/25 23:08) B-Complex W/ C & Folic Tablet (Nephro-Vi (08/21/25 10:00) Ceftriaxone Ivpb Rocephin (08/21/25 09:00) Glucose Blood (Accu-Chek Comfort Curve T (08/21/25 07:00) Mild Sliding Scale (08/21/25 07:00) Dextrose 50% Syringe (08/20/25 23:15) Admit (08/20/25 23:08) Allergies (08/20/25 23:08) Code Status (08/20/25 23:08) Sodium Chloride Lock (Saline Lock Ns) (08/21/25 06:00) Oxygen Per Hour (08/20/25 23:08) Hydrocodone-Acet 5/325mg Tab ([place] 5/32 (08/20/25 23:15) Ondansetron Hcl (Zofran) (08/20/25 23:15) Docusate Sodium Capsule (Colace Capsule) (08/20/25 23:15) Multiple Vitamin Tablet (Mvi Tab) (08/21/25 10:00) Fall Risk Precautions In Place QSHIFT (08/20/25 23:08) Complete Blood Count (08/21/25 04:00) Comprehensive Metabolic Panel (08/21/25 04:00) Cardiac Diet-2gna,Lofat,Lochol (08/21/25 Breakfast) Condition: Serious (08/20/25 23:08) Acetaminophen Tablet (Tylenol Tablet) (08/20/25 23:15) Maintain Bed Rest (08/20/25 23:08) Sequential Compression Device (08/20/25 ) Nitroglycerin Sublingual (Ntrostat Subli (08/20/25 23:15) Morphine Sulfate Injection (08/20/25 23:15) Stat Ekg For Chest Pain (08/20/25 23:08) Notify Md Of Changes From Base (08/20/25 23:08) Human Development Professor For 24 Hours (08/20/25 23:08) Emergency Dysrhythmia Protocol (08/20/25 23:08) Rhythm Strips Once Every Shift (08/20/25 23:08) Oxygen By Nasal Cannula (08/20/25 23:08) Vital Signs Date Time Temp Pulse Resp B/P (MAP) Pulse Ox O2 Delivery O2 Flow Rate FiO2 08/20/25 21:30 169/66 08/20/25 21:30 72 169/66 96 Facial BiPAP Mask 75 08/20/25 20:52 81 164/108 96 Facial BiPAP Mask 100 08/20/25 20:42 18 96 Bi-Pap+ 100 100 08/20/25 19:42 97 Bi-Pap+ 100 100 08/20/25 19:42 82 184/72 Facial BiPAP Mask 100 08/20/25 19:42 21 97 Bi-Pap+ 100 100 08/20/25 19:31 184/72 08/20/25 19:22 83 18 97 08/20/25 19:04 97.6 90 35 143/93 81 97.6 Laboratory Tests Test 08/20/25 19:50 Lactic Acid Level 0.8 mmol/L (0.4-2.0) White Blood Count 11.3 10^3/uL (4.4-10.8) H Medications Medications Dose Ordered Sig/Adri Route Start Time Stop Time Status Last Admin Dose Admin Albuterol 20 mg ONCE ONCE NEB 08/20/25 19:15 08/20/25 19:16 DC 08/20/25 19:40 20 MG Calcium Gluconate/ Sodium Chloride 50 ml @ 120 mls/hr ONCE ONCE IV 08/20/25 21:00 08/20/25 21:24 DC 08/20/25 22:56 120 MLS/HR Dextrose 50 ml ONCE ONCE IV 08/20/25 21:00 08/20/25 21:01 DC 08/20/25 22:56 50 ML Furosemide 60 mg ONCE ONCE IV 08/20/25 19:15 08/20/25 19:16 DC 08/20/25 19:31 60 MG Insulin Human Regular 10 units ONCE ONCE IV 08/20/25 21:00 08/20/25 21:01 DC 08/20/25 23:02 10 UNITS Ipratropium [place] 1 mg ONCE ONCE NEB 08/20/25 19:15 08/20/25 19:16 DC 08/20/25 19:41 1 MG Methylprednisolone Sodium Succinate 125 mg ONCE ONCE IV 08/20/25 19:15 08/20/25 19:16 DC 08/20/25 19:28 125 MG Nitroglycerin 250 ml @ 1.5 mls/hr Q24H ONCE IV 08/20/25 19:45 08/21/25 19:44 08/20/25 21:30 1.5 MLS/HR Piperacillin Sod/ Tazobactam Sod 100 ml @ 100 mls/hr ONCE ONCE IV 08/20/25 19:45 08/20/25 20:44 DC 08/20/25 21:31 100 MLS/HR Sodium Bicarbonate 50 ml ONCE ONCE IV 08/20/25 21:00 08/20/25 21:01 DC 08/20/25 22:59 50 ML Assessment/Plan Assessment/Plan Acute respiratory failure Hyperkalemia Electrolyte imbalance Pulmonary edema Generalized weakness Acute on chronic renal failure COPD with acute exacerbation Acute exacerbation of congestive heart failure Plan 1. Admit to intensive care unit 2. Breathing treatment 3. Pain control management 4. IV antibiotic management 5. Management of fluids and electrolytes 6. Consultation for pulmonology/nephrology 7. Diagnostic test chest x-ray 8. DVT prophylaxis-on SCDs 9. Repeat labs CBC, CMP in a.m. 10. Home medication reviewed and reconciled 11. Continue with current medical management 12. Treatment plan discussed with patient and RN. Patient verbalized understanding. Plan discussed with: Patient, Other (RN) My Orders Orders - JENNIFER LAEMAN DNP Procedure Category Date Status Time Potassium LAB 08/20/25 Logged 00:15 Methylprednisolone PHA 08/21/25 Transmitted Sod Succ (Solu Medrol 06:00 Famotidine Injection PHA 08/21/25 Transmitted (Pepcid Injection) 10:00 Albuterol Medneb PHA 08/20/25 Transmitted (Ventolin Medneb) 23:15 Ipratropium Medneb PHA 08/20/25 Transmitted (Atrovent Medneb) 23:15 *Dr. Oliveros Group CONS 08/20/25 Transmitted -[place] 23:08 Furosemide Injection PHA 08/21/25 Transmitted (Lasix Injection) 10:00 *Consult CONS 08/20/25 Transmitted 23:08 B-Complex W/ C & PHA 08/21/25 Transmitted Folic Tablet 10:00 Ceftriaxone Ivpb PHA 08/21/25 Transmitted Rocephin 09:00 Glucose Blood PHA 08/21/25 Transmitted (Accu-Chek Comfort 07:00 Mild Sliding Scale PHA 08/21/25 Transmitted 07:00 Dextrose 50% Syringe PHA 08/20/25 Transmitted 23:15 Admit ADMIT 08/20/25 Transmitted 23:08 Allergies [place] 08/20/25 Transmitted 23:08 Code Status CODE 08/20/25 Transmitted 23:08 Sodium Chloride Lock PHA 08/21/25 Transmitted (Saline Lock Ns) 06:00 Oxygen Per Hour RT 08/20/25 Transmitted 23:08 Hydrocodone-Acet PHA 08/20/25 Transmitted 5/325mg Tab ([place] 23:15 Ondansetron Hcl PHA 08/20/25 Transmitted (Zofran) 23:15 Docusate Sodium PHA 08/20/25 Transmitted Capsule (Colace 23:15 Multiple Vitamin PHA 08/21/25 Transmitted Tablet (Mvi Tab) 10:00 Fall Risk Precautions [facility] 08/20/[address] 23:08 Complete Blood Count LAB 08/21/25 Verified 04:00 Comprehensive LAB 08/21/25 Verified Metabolic Panel 04:00 Cardiac DIET 08/21/25 Transmitted Diet-2gna,Lofat,Lochol Breakfast Condition: Serious [place] 08/20/25 Transmitted 23:08 Acetaminophen Tablet PHA 08/20/25 Transmitted (Tylenol Tablet) 23:15 Maintain Bed Rest [place] 08/20/25 Transmitted 23:08 Sequential [facility] 08/20/25 Transmitted Compression Device Nitroglycerin [facility] 08/20/25 Transmitted Sublingual (Ntrostat 23:15 Morphine Sulfate PHA 08/20/25 Transmitted Injection 23:15 Stat Ekg For Chest [place] 08/20/25 Transmitted Pain 23:08 Notify Md Of Changes [facility] 08/20/25 Transmitted From Base 23:08 Human Development Professor For [facility] 08/20/25 Transmitted 24 Hours 23:08 Emergency Dysrhythmia [facility] 08/20/25 Transmitted Protocol 23:08 Rhythm Strips Once [facility] 08/20/25 Transmitted Every Shift 23:08 Oxygen By Nasal RT 08/20/25 Transmitted Cannula 23:08 Problem List: (1) Acute respiratory failure (2) Hyperkalemia (3) Pulmonary edema (4) Electrolyte imbalance (5) Generalized weakness (6) Acute on chronic renal failure (7) COPD with acute exacerbation (8) Acute exacerbation of congestive heart failure Date of Service: Aug 20, 2025 Billing Provider: JENNIFER ALEMAN DNP Common Visit Codes: [id number] INP/OBS CARE (HIGH) JENNIFER ALEMAN DNP Aug 20, 2025 23:24
[2025-08-20 23:30] VITALS: BP 157/61; PULSE 73; O2SAT 95
[2025-08-21] VITALS (85 sets, daily range): BP systolic 89–205; BP diastolic 45–138; PULSE 48–89; RESP 0–25; TEMP 96.4–98.2; O2SAT 93–99
[2025-08-21 01:33] LABS: Base Excess -12.5 mmol/L (-2.0-3.0)
[2025-08-21] MEDS: ETOMIDATE (2MG/ML) 20ML VIAL IV ONE ×2 (01:43→01:50)
[2025-08-21] MEDS: ROCURONIUM 10MG/ML 10ML VIAL IV ONE ×2 (01:45→02:06)
[2025-08-21] MEDS: MIDAZOLAM DRIP 100 mg/100mL NS 100 ML IV ONE ×2 (01:55→12:06)
[2025-08-21] MEDS: MIDAZOLAM DRIP 100 mg/100mL NS 100 ML IV SCH (02:05)
[2025-08-21] MEDS: DEXTROSE 50% SYRINGE 50 ML IV ONE (02:24)
[2025-08-21] MEDS: InsuLIN REG 1unit/0.01ml Soln (100units/ml) ONE (02:24)
[2025-08-21] MEDS: SODIUM BICARB 8.4% 50Meq/50ml SYR Vial IV ONE ×2 (02:24→02:27)
[2025-08-21] MEDS: CALCIUM GLUC 1,000mg/50ml-NS 50 ML IV ONE ×4 (02:25→23:46)
[2025-08-21] MEDS: DEXTROSE (50%) 50ML SYRG IV ONE ×3 (02:27→23:35)
[2025-08-21] MEDS: InsuLIN REG 1unit/0.01ml Soln (100units/ml) IV ONE ×3 (02:40→23:43)
--- NOTE | 2025-08-21 02:47 | DVH ---
CHEST RADIOGRAPH Indication: INTUBATION Technique: Single frontal view of the chest was obtained COMPARISON: XY CHEST XRAY 1 VIEW on DOS: 08/20/25, XY CHEST PORTABLE on DOS: 05/04/24, CT ANGIO CHEST CONTRAST on DOS: 12/21/20, CHEST PORTABLE on DOS: 12/21/20, CHEST PORTABLE on DOS: 10/22/20 FINDINGS: ET tube tip terminating 2.9 cm above the delfino. NG tube in the distal stomach. Cardiac silhouette is enlarged. Diffuse prominence of the pulmonary vasculature and interstitium with mild hazy opacity throughout both lungs and probable trace bilateral pleural effusions. IMPRESSION: ET tube well positioned. Cardiomegaly with pulmonary venous congestion and edema.
[2025-08-21] MEDS: ALBUTEROL SULF 2.5 MG/0.5ML(0.5%) NEB SOLN NEB ONE ×2 (03:00→23:23)
[2025-08-21] MEDS: fentaNYL Drip 2500mCg/250mlNS 250 ML IV SCH (03:01)
[2025-08-21] MEDS: PROPOFOL 100 ML IV SCH (04:00)
[2025-08-21 04:27] LABS: Base Excess -9.0 mmol/L (-2.0-3.0)
[2025-08-21] MEDS: SODIUM CHLOR 0.9% PF (SALINE LOCK) 10ML VIAL/SYR IV SCH (06:09)
[2025-08-21] MEDS: methylPREDNISolone SOD SUCC 40 MG/ML VL IV SCH (06:12)
[2025-08-21] MEDS: InsuLIN REG 1unit/0.01ml Soln (100units/ml) SC SCH (07:00)
[2025-08-21 07:22] LABS: Base Excess -8.3 mmol/L (-2.0-3.0)
[2025-08-21 07:27] LABS: Hematocrit 55.8 % (36.0-46.0); Mean Corpuscular Volume 70.0 fL (80.0-100.0)
[2025-08-21 07:28] LABS: Hemoglobin 15.2 g/dL (12.2-16.2); Mean Corpuscular Hemoglobin 19.0 pg (28.0-32.0)
[2025-08-21 08:20] LABS: Sodium 144 mmol/L (136-145)
[2025-08-21 08:23] LABS: Anisocytosis Slight; Nucleated Red Blood Cells % 5.0 %; Total Cells Counted 100.0 (100)
[2025-08-21 08:35] LABS: Chloride 111 mmol/L (98-107)
[2025-08-21 08:38] LABS: BUN/Creatinine Ratio 10.7 (10.0-20.0)
[2025-08-21 08:39] LABS: Alanine Aminotransferase 9 U/L (7-40); Albumin 2.9 g/dL (3.2-4.8); Alkaline Phosphatase 141 U/L (46-116); Anion Gap 10 (5-15); Bilirubin, Total 0.7 mg/dL (0.2-1.0); Blood Urea Nitrogen 46 mg/dL (9-23); Calcium 8.2 mg/dL (8.7-10.4); Carbon Dioxide 23 mmol/L (20-31); Glucose 135 mg/dL (74-106); Total Protein 6.4 g/dL (5.7-8.2)
[2025-08-21 08:41] LABS: Potassium 6.4 mmol/L (3.5-5.1)
[2025-08-21] MEDS: ACCU-CHEK COMFORT CURVE STRIP VI SCH (09:09)
[2025-08-21] MEDS: FAMOTIDINE (10MG/ML) 2ML VL IV ONE (09:52)
[2025-08-21] MEDS: B-COMPLEX W/ C & FOLIC ACID(NEPHROVITE TAB) ONE (09:52)
[2025-08-21] MEDS: MULTIPLE VITAMIN TAB ONE (09:53)
[2025-08-21] MEDS: FAMOTIDINE (10MG/ML) 2ML VL IV SCH (10:08)
[2025-08-21] MEDS: FUROSEMIDE 40 MG/4 ML VIAL IV SCH (10:08)
[2025-08-21] MEDS: B-COMPLEX W/ C & FOLIC ACID(NEPHROVITE TAB) PO SCH (10:09)
[2025-08-21] MEDS: MULTIPLE VITAMIN TAB PO SCH (10:09)
[2025-08-21] MEDS ORDERED: SOD CHL 0.45% 1,000 ML IV SCH (11:15)
[2025-08-21] MEDS: PROPOFOL 100 ML IV ONE (12:06)
[2025-08-21 12:22] LABS: COVID19 ANTIGEN SOFIA FIA NEGATIVE (NEGATIVE)
[2025-08-21] MEDS: SODIUM BICARB 50mEq/50ml Vial 100 ML in SOD CHL 0.45% 1,000 ML IV SCH (13:07)
[2025-08-21 13:14] LABS: Sodium 145 mmol/L (136-145)
[2025-08-21 13:15] LABS: Anion Gap 11 (5-15); Carbon Dioxide 22 mmol/L (20-31)
[2025-08-21 13:21] LABS: BUN/Creatinine Ratio 11.0 (10.0-20.0)
[2025-08-21] MEDS: methylPREDNISolone SOD SUCC 40 MG/ML VL ONE (14:07)
--- NOTE | 2025-08-21 14:10 | DVHINCON2 ---
Date of service: Aug 21, [address] Chapis Tavarez Reason for Consultation Acute kidney injury History of Present Illness Liliane Marin is a 75-year-old female with known history of chronic kidney disease baseline creatinine of less than two presented for further evaluation and management of worsening shortness of breath. Her clinical course has been notable for progressive respiratory failure requiring intubation, mechanical ventilatory support. She has been noted to be positive for influenza a and B. she is seen in the emergency department all the history was obtained through the chart. Current consultation requested due to serum creatinine noted to be in the four range and she has been persistently hyperkalemic. Urine volumes have been nonoliguric. Past Medical History Chronic kidney disease stage IIIB Hypertension Diabetes COPD Allergies: Coded Allergies: NO KNOWN ALLERGIES (Unverified , 12/21/20) Home Meds Active Scripts Doxycycline (Monohydrate) (Doxycycline) 100 Mg Cap, 100 MG PO BID, #20 CAP Prov:OTILIO JORDAN MD 12/22/20 Reported Medications Omeprazole (Omeprazole Dr) 20 Mg Cap, 1 CAP PO DAILYPRN 12/21/20 Ferrous Sulfate (FERROUS SULFATE) 324 Mg Tab, 1 TAB PO DAILYPRN 12/21/20 Loratadine (CLARITIN TABLET) 10 Mg Tb, 1 TAB PO DAILYPRN 12/21/20 Tadalafil (Alyq) 20 Mg Tab, TAB PO 12/21/20 Insulin Aspart (Insulin Aspart Flexpen) 100 Unit/Ml Inj, 10 UNIT SC BID, INJ 10/20/20 Docusate Sodium (Docusate Sodium) 100 Mg Tab, 100 MG PO BID, TAB 10/20/20 Cholecalciferol (VITAMIN D3) 2,000 Unit Tab, 2000 UNIT PO DAILY, TAB 10/20/20 Magnesium Oxide (MAGNESIUM OXIDE) 400 Mg Tab, 1 TAB PO DAILY, #30 TAB 5 Refills 10/20/20 Ascorbic Acid (Vitamin C) 1,000 Mg Tab, 1000 MG PO DAILY, TAB 10/20/20 Gabapentin (Gabapentin) 300 Mg Cap, 300 MG PO TID for 30 Days, MG 11/17/17 Allopurinol (Allopurinol) 100 Mg Tab, 100 MG PO BID for 30 Days, MG 11/17/17 Simvastatin (Simvastatin) 20 Mg Tab, 20 MG PO DAILY for 30 Days 11/17/17 Current Medications Current Medications Medications (Trade) Dose Ordered Sig/Adri Route PRN Reason Start Time Stop Time Status Last Admin Methylprednisolone Sodium Succinate (Solu Medrol) 40 mg Q8HR IV 08/21/25 06:00 08/21/25 06:12 Famotidine (Pepcid Injection) 20 mg Q12HR IV 08/21/25 10:00 08/21/25 10:08 Albuterol (Ventolin Medneb) 2.5 mg Q4HPRN PRN NEB SHORTNESS OF BREATH 08/20/25 23:15 Ipratropium [place] (Atrovent Medneb) 0.5 mg Q4HPRN PRN NEB SHORTNESS OF BREATH 08/20/25 23:15 Furosemide (Lasix Injection) 40 mg DAILY IV 08/21/25 10:00 08/21/25 10:08 Multivit/Ca Carb/ B Cmplx/FA/Prenat (Nephro-Bob Tablet) 1 tab DAILY PO 08/21/25 10:00 08/21/25 10:09 Ceftriaxone Sodium 50 ml @ 100 mls/hr DAILY@09 IV 08/21/25 09:00 08/21/25 09:13 Diagnostic Test (Pha) (Accu-Chek Comfort Curve T) 1 strip ACHS 08/21/25 07:00 08/21/25 12:54 Insulin Human Regular (InsuLIN R) ACHS SC 08/21/25 07:00 Dextrose 50 ml UD PRN IV Blood Sugar LESS THAN 60 08/20/25 23:15 Sodium Chloride (Saline Lock Ns) 10 ml Q8HR IV 08/21/25 06:00 08/21/25 06:09 Acetaminophen/ Hydrocodone Bitart ([place] 5/325MG Tab) 1 tab Q4HP PRN PO MODERATE PAIN (4-6 PAIN SCALE) 08/20/25 23:15 Ondansetron HCl (Zofran) 4 mg Q4HP PRN IV NAUSEA / VOMITING 08/20/25 23:15 Docusate Sodium (Colace Capsule) 100 mg BIDPRN PRN PO FOR CONSTIPATION 08/20/25 23:15 Multivitamins (Mvi Tab) 1 tab DAILY PO 08/21/25 10:00 08/21/25 10:09 Acetaminophen (Tylenol Tablet) 650 mg Q6HP PRN PO PAIN SCALE 1-3 OR TEMP>100.4 08/20/25 23:15 Nitroglycerin (Ntrostat Sublingual) 0.4 mg Q5MINP PRN SL FOR CHEST PAIN 08/20/25 23:15 Morphine Sulfate 2 mg Q30M PRN IV FOR CHEST PAIN 08/20/25 23:15 Midazolam HCl 100 ml @ 1 mls/hr Q24H IV 08/21/25 01:45 08/21/25 13:10 Fentanyl Citrate 250 ml @ 2.5 mls/hr Q24H IV 08/21/25 01:45 08/21/25 04:00 DC Propofol 100 ml @ 2.658 mls/ hr Q24H IV 08/21/25 04:00 08/21/25 13:08 Sodium Chloride 1,000 ml @ 75 mls/hr [id number] IV 08/21/25 11:15 08/21/25 11:50 DC Sodium Bicarbonate 100 ml/Sodium Chloride 1,100 ml @ 75 mls/hr [id number] IV 08/21/25 12:00 08/21/25 13:07 Family History: Patient reports no known family medical history. Review of Systems Unable to be obtained due to patient's critical status H&P Exam Vital Signs/I&O Vital Sign Date Time Temp Pulse Resp B/P (MAP) Pulse Ox O2 Delivery O2 Flow Rate FiO2 08/21/25 12:47 60 24 126/66 (86) 95 100 08/21/25 07:00 97.7 97.7 08/21/25 01:04 Facial BiPAP Mask Intake and Output 08/20/25 08/21/25 19:00 07:00 Intake Total 251.948 ml Balance 251.948 ml Intake IV Total 251.948 ml Physical Exam Gen: Intubated and sedated heent: nc/at, mmm lungs: Adequate air exchange anterior cvs: no rub abd: soft, bowel sounds audible ext: Leathery appearance to skin in lower extremities, 1+ edema noted. Right foot wrapped in gauze skin: no rash neuro: Sedated Labs/Diagnostic Data Labs/Diagnostic Data Laboratory Tests Test 08/21/25 12:51 08/21/25 12:43 08/21/25 11:22 08/21/25 09:07 Range/Units POC Glucose 92 115 H 70-106 mg/dl Influenza Type A Antigen Positive Negative Influenza Type B Antigen Positive Negative SARS-CoV-2 Antigen (Rapid) Negative NEGATIVE Test 08/21/25 07:50 08/21/25 07:12 08/21/25 06:15 08/21/25 03:28 Range/Units Sodium Level 144 136-145 mmol/L Potassium Level 6.4 *H 3.5-5.1 mmol/L Chloride Level 111 H 98-107 mmol/L Carbon Dioxide Level 23 20-31 mmol/L Anion Gap 10 5-15 Blood Urea Nitrogen 46 H 9-23 mg/dL Creatinine 4.31 H 0.550-1.02 mg/dL Glomerular Filtration Rate Calc 10 >90 mL/min BUN/Creatinine Ratio 10.7 10.0-20.0 Serum Glucose 135 H 74-106 mg/dL Calcium Level 8.2 L 8.7-10.4 mg/dL Total Bilirubin 0.7 0.2-1.0 mg/dL Aspartate Amino Transferase (AST) 17 13-40 U/L Alanine Aminotransferase (ALT) 9 7-40 U/L Alkaline Phosphatase 141 H 46-116 U/L Total Protein 6.4 5.7-8.2 g/dL Albumin 2.9 L 3.2-4.8 g/dL Blood Gas Specimen Type Arterial Arterial Blood Gas Sample Site Right radial Left radial Blood Gas Patient Temperature 37.0 37.0 Arterial Blood Date Drawn [id number] Arterial Blood pH 7.206 *L 7.169 *L 7.350-7.450 Arterial Blood Partial Pressure CO2 51.6 H 57.2 H 32.0-45.0 mmHg Arterial Blood Partial Pressure O2 77.0 L 101.1 83.0-108.0 mmHg Arterial Blood HCO3 20.0 L 20.3 L 21.0-28.0 mmol/L Arterial Blood Oxygen Saturation 94.7 97.8 94.0-98.0 % Arterial Blood Base Excess -8.3 L -9.0 L -2.0-3.0 mmol/L Arterial Blood Oxyhemoglobin 91.6 L 94.1 94.0-98.0 % Arterial Blood Carboxyhemoglobin 2.7 H 3.1 H 0.5-1.5 % Arterial Blood Methemoglobin 0.6 0.7 0.0-1.5 % Arterial Blood Deoxyhemoglobin 5.1 H 2.1 0.0-5.0 % Ulises Test Modified Modified Blood Gas Total Hemoglobin 15.70 16.60 H 12.0-16.0 g/dL Blood Gas Set Respiration Rate 22.0 22.0 Blood Gas Modality Vent - ac Vent - ac Blood Gas Spontaneous Rate 22 FiO2 % 100.0 100.0 Blood Gas Tidal Volume 450.0 450.0 Blood Gas PEEP or CPAP 5.0 5.0 Blood Gas Critical Value Read Back Yes Yes Blood Gas Notified Whom art Reed dnp, f dnp Blood Gas Notified Time [id number] Blood Gas Notified By joyce Gan rt. White Blood Count 7.6 # 4.4-10.8 10^3/uL Red Blood Count 7.97 H 4.0-5.20 10^6/uL Hemoglobin 15.2 12.2-16.2 g/dL Hematocrit 55.8 H 36.0-46.0 % Mean Corpuscular Volume 70.0 L 80.0-100.0 fL Mean Corpuscular Hemoglobin 19.0 L 28.0-32.0 pg Mean Corpuscular Hemoglobin Concent 27.2 L 32.0-36.0 g/dL Red Cell Distribution Width 27.6 H 11.8-14.3 % Platelet Count 122 L 140-450 10^3/uL Mean Platelet Volume 8.4 6.9-10.8 fL Neutrophils (%) (Auto) 37.0-80.0 % Lymphocytes (%) (Auto) 10.0-50.0 % Monocytes (%) (Auto) 0.0-12.0 % Basophils (%) (Auto) 0.0-2.0 % Neutrophils # (Auto) 1.6-8.6 10 ^3/uL Lymphocytes # (Auto) 0.4-5.4 10 ^3/uL Monocytes # (Auto) 0-1.3 10 ^3/uL Differential Total Cells Counted 100.0 100 Neutrophils % (Manual) 87 H 37.0-80.0 Band Neutrophils % (Manual) 3 Lymphocytes % (Manual) 7 L 10.0-50.0 Monocytes % (Manual) 3 0-12 Eosinophils % (Manual) 0 0-7 Basophils % (Manual) 0 0.0-2.0 Metamyelocytes % (manual) 0 Myelocytes % (Manual) 0 Promyelocytes % (Manual) 0 Blast Cells % (Manual) 0 Nucleated Red Blood Cells 5.0 % Reactive Lymphocytes 0 Platelet Estimate Decreased Hypochromasia (manual) Slight Anisocytosis (manual) Slight Microcytosis Slight Test 08/21/25 02:35 08/21/25 01:14 08/21/25 00:04 08/20/25 23:02 Range/Units Potassium Level 6.7 *H 6.8 *H 3.5-5.1 mmol/L Blood Gas Specimen Type Arterial Arterial Blood Gas Sample Site Right radial Left radial Blood Gas Patient Temperature 37.0 37.0 Arterial Blood Date Drawn [id number] Arterial Blood pH 6.982 *L 7.021 *L 7.350-7.450 Arterial Blood Partial Pressure CO2 93.5 *H 80.2 *H 32.0-45.0 mmHg Arterial Blood Partial Pressure O2 82.6 L 66.1 L 83.0-108.0 mmHg Arterial Blood HCO3 21.6 20.3 L 21.0-28.0 mmol/L Arterial Blood Oxygen Saturation 94.0 88.4 L 94.0-98.0 % Arterial Blood Base Excess -12.5 L -12.5 L -2.0-3.0 mmol/L Arterial Blood Oxyhemoglobin 90.1 L 85.2 L 94.0-98.0 % Arterial Blood Carboxyhemoglobin 3.3 H 3.0 H 0.5-1.5 % Arterial Blood Methemoglobin 0.8 0.6 0.0-1.5 % Arterial Blood Deoxyhemoglobin 5.8 H 11.2 H 0.0-5.0 % Ulises Test Modified Yes Blood Gas Total Hemoglobin 16.30 H 16.20 H 12.0-16.0 g/dL Blood Gas Set Respiration Rate 20.0 20.0 Blood Gas Modality Mask - bipap Mask - bipap FiO2 % 100.0 75.0 Blood Gas EPAP 8 8 Blood Gas IPAP 18 18 Blood Gas Critical Value Read Back Yes Yes Blood Gas Notified Whom chelo Reed, rylie Silverio do Blood Gas Notified Time [id number] Blood Gas Notified By aby Mathias, chief sustainability officer Blood Gas Spontaneous Rate 24 Test 08/20/25 22:51 08/20/25 21:22 08/20/25 21:20 08/20/25 20:30 Range/Units Troponin I High Sensitivity 27 23 </=34 ng/L Blood Gas Specimen Type Arterial Blood Gas Sample Site Right radial Blood Gas Patient Temperature 37.0 Arterial Blood Date Drawn Arterial Blood pH 7.013 *L 7.350-7.450 Arterial Blood Partial Pressure CO2 80.2 *H 32.0-45.0 mmHg Arterial Blood Partial Pressure O2 84.8 83.0-108.0 mmHg Arterial Blood HCO3 19.9 L 21.0-28.0 mmol/L Arterial Blood Oxygen Saturation 93.9 L 94.0-98.0 % Arterial Blood Base Excess -13.0 L -2.0-3.0 mmol/L Arterial Blood Oxyhemoglobin 90.1 L 94.0-98.0 % Arterial Blood Carboxyhemoglobin 3.4 H 0.5-1.5 % Arterial Blood Methemoglobin 0.6 0.0-1.5 % Arterial Blood Deoxyhemoglobin 5.9 H 0.0-5.0 % Ulises Test Yes Blood Gas Total Hemoglobin 16.20 H 12.0-16.0 g/dL Blood Gas Set Respiration Rate 14.0 Blood Gas Modality Mask - bipap Blood Gas Spontaneous Rate 18 FiO2 % 100.0 Blood Gas EPAP 8 Blood Gas IPAP 16 Blood Gas Critical Value Read Back Yes Blood Gas Notified Whom rylie Noriega do Blood Gas Notified Time [id number] Blood Gas Notified By Potassium Level 7.2 *H 3.5-5.1 mmol/L Urine Color Light-orange Yellow Urine Clarity Turbid H Clear Urine pH 6.0 5.0-9.0 Urine Specific [place] 1.018 1.001-1.035 Urine Protein 3+ H Negative Urine Ketones Negative Negative Urine Blood 3+ H Negative /uL Urine Nitrite Negative Negative Urine Bilirubin Negative Negative Urine Urobilinogen Normal Negative mg/dL Urine Leukocyte Esterase Negative Negative /uL Urine RBC 362 0 - 4 /hpf Urine Microscopic WBC 9 H 0-5 /HPF Urine Squamous Epithelial Cells Few <5 /hpf Urine Bacteria None seen None Seen /hpf Urine Glucose 1+ H Normal mg/dL Test 08/20/25 19:50 Range/Units White Blood Count 11.3 H 4.4-10.8 10^3/uL Red Blood Count 8.14 H 4.0-5.20 10^6/uL Hemoglobin 15.1 12.2-16.2 g/dL Hematocrit 56.7 H 36.0-46.0 % Mean Corpuscular Volume 69.7 L 80.0-100.0 fL Mean Corpuscular Hemoglobin 18.6 L 28.0-32.0 pg Mean Corpuscular Hemoglobin Concent 26.7 L 32.0-36.0 g/dL Red Cell Distribution Width 27.6 H 11.8-14.3 % Platelet Count 106 L 140-450 10^3/uL Mean Platelet Volume 8.7 6.9-10.8 fL Neutrophils (%) (Auto) 76.4 37.0-80.0 % Lymphocytes (%) (Auto) 13.4 10.0-50.0 % Monocytes (%) (Auto) 8.9 0.0-12.0 % Eosinophils (%) (Auto) 0.5 0.0-7.0 % Basophils (%) (Auto) 0.8 0.0-2.0 % Neutrophils # (Auto) 8.6 1.6-8.6 10 ^3/uL Lymphocytes # (Auto) 1.5 0.4-5.4 10 ^3/uL Monocytes # (Auto) 1.0 0-1.3 10 ^3/uL Eosinophils # (Auto) 0.1 0-0.8 10 ^3/uL Basophils # (Auto) 0.1 0-0.2 10 ^3/uL Nucleated Red Blood Cells 3.7 % Sodium Level 145 136-145 mmol/L Potassium Level 6.5 *H 3.5-5.1 mmol/L Chloride Level 112 H 98-107 mmol/L Carbon Dioxide Level 23 20-31 mmol/L Anion Gap 10 5-15 Blood Urea Nitrogen 46 H 9-23 mg/dL Creatinine 4.09 H 0.550-1.02 mg/dL Glomerular Filtration Rate Calc 11 >90 mL/min BUN/Creatinine Ratio 11.2 10.0-20.0 Serum Glucose 113 H 74-106 mg/dL Lactic Acid Level 0.8 0.4-2.0 mmol/L Calcium Level 7.7 L 8.7-10.4 mg/dL Total Bilirubin 0.5 0.2-1.0 mg/dL Aspartate Amino Transferase (AST) 15 13-40 U/L Alanine Aminotransferase (ALT) 16 7-40 U/L Alkaline Phosphatase 177 H 46-116 U/L Troponin I High Sensitivity 24 </=34 ng/L B-Type Natriuretic Peptide 2515.41 0-100 pg/mL Total Protein 7.3 5.7-8.2 g/dL Albumin 3.5 3.2-4.8 g/dL Assessment IMP: 1) Hemodynamically mediated acute kidney injury and vasomotor nephropathy 2) chronic kidney disease stage IIIB possibly secondary to underlying diabetic kidney disease 3) acute hypoxemic respiratory failure 4) working diagnosis of possible influenza pneumonia 5) hyperkalemia REC: - trial of forced diuresis to enhance potassium excretion - serial chemistry panels as you are doing - agree with IV bicarbonate infusion - avoidance of intravenous contrast studies if able. - currently without urgent indication for kidney replacement therapy, we will continue to follow closely. - thank you for the consultation Plan discussed with: JOSEPHINE Jackson MD Aug 21, 2025 14:10
[2025-08-21 14:13] LABS: Blood Urea Nitrogen 48 mg/dL (9-23); Calcium 8.0 mg/dL (8.7-10.4); Chloride 112 mmol/L (98-107); Glucose 130 mg/dL (74-106)
[2025-08-21 14:14] LABS: Potassium 6.1 mmol/L (3.5-5.1)
--- NOTE | 2025-08-21 14:47 | DVHINCON2 ---
Date of service: Aug 20, 2025 Referring Physician Ba Reed NP Reason for Consultation Acute respiratory failure History of Present Illness History Source: Patient, RN Notes, MD Notes Exam Limitations: Clinical condition HPI Patient is a 75-year old lady with a history of COPD, CHF, HTN and HLD who presented with shortness of breath and chest pain. Was seen in the emergency room where she was noted to desaturate to 74% and was placed on bipap 16/8, FiO2 100%. Chest x-ray shows infiltrates and pulmonary edema, pulmonology was consulted to assist in management. Home Meds Active Scripts Doxycycline (Monohydrate) (Doxycycline) 100 Mg Cap, 100 MG PO BID, #20 CAP Prov:OTILIO JORDAN MD 12/22/20 Reported Medications Omeprazole (Omeprazole Dr) 20 Mg Cap, 1 CAP PO DAILYPRN 12/21/20 Ferrous Sulfate (FERROUS SULFATE) 324 Mg Tab, 1 TAB PO DAILYPRN 12/21/20 Loratadine (CLARITIN TABLET) 10 Mg Tb, 1 TAB PO DAILYPRN 12/21/20 Tadalafil (Alyq) 20 Mg Tab, TAB PO 12/21/20 Insulin Aspart (Insulin Aspart Flexpen) 100 Unit/Ml Inj, 10 UNIT SC BID, INJ 10/20/20 Docusate Sodium (Docusate Sodium) 100 Mg Tab, 100 MG PO BID, TAB 10/20/20 Cholecalciferol (VITAMIN D3) 2,000 Unit Tab, 2000 UNIT PO DAILY, TAB 10/20/20 Magnesium Oxide (MAGNESIUM OXIDE) 400 Mg Tab, 1 TAB PO DAILY, #30 TAB 5 Refills 10/20/20 Ascorbic Acid (Vitamin C) 1,000 Mg Tab, 1000 MG PO DAILY, TAB 10/20/20 Gabapentin (Gabapentin) 300 Mg Cap, 300 MG PO TID for 30 Days, MG 11/17/17 Allopurinol (Allopurinol) 100 Mg Tab, 100 MG PO BID for 30 Days, MG 11/17/17 Simvastatin (Simvastatin) 20 Mg Tab, 20 MG PO DAILY for 30 Days 11/17/17 Past Medical History Cardiac: CHF, HTN, Hyperlipidemia Pulmonary: COPD Central Nervous System: No pertinent Hx GI: No pertinent Hx Hemotology/Oncology: No pertinent Hx Hepatobiliary: No pertinent Hx Psychiatric: No pertinent Hx Musculoskeletal: No pertinent Hx Rheumotologic: No pertinent Hx Infectious Disease: No peritnent Hx ENT: No pertinent Hx Renal/: No pertinent Hx Endocrine: No pertinent Hx Dermatology: No pertinent Hx Past Surgical History: No pertinent Hx Family History: No pertinent Hx Patient Family History: Patient reports no known family medical history. Smoker: No Hx (Negative) Alocohol: None Drugs: None Lives with: With family Domestic Violence: Neg Review of Systems Constitutional: No symptom reported Ears, Nose, & Throat: No symptom reported Eyes: No symptom reported Pulmonary/Respiratory: Dyspnea Cardiovascular: Chest Pain Gastrointestinal: No symptom reported Genitourinary: No symptom reported Musculoskeletal: No symptom reported Skin: No symptom reported Psychiatric: No symptom reported Endocrine: No symptom reported Hemotologic/Lymphatic: No symptom reported H&P Exam Vital Signs Vital Signs Date Time Temp Pulse Resp B/P (MAP) Pulse Ox O2 Delivery O2 Flow Rate FiO2 08/21/25 12:47 60 24 126/66 (86) 95 100 08/21/25 07:00 97.7 97.7 08/21/25 01:04 Facial BiPAP Mask General Appeara: Well developed, Well nourished, Normal Appearance Head Exam: Normal inspection Neck Exam: Normal inspection, Non-tender, Normal alignment Eye Exam: bilateral eye Normal inspection, bilateral eye PERRL, bilateral eye EOMI Ear Exam: bilateral ear Auricle normal, bilateral ear Canal normal, bilateral ear TM normal Nasal Exam: Normal inspection Mouth: Normal Inspection Pulmonary/Respiratory: Decreased breath sounds Cardiovascular/Chest: Normal inspection Peripheral Pulses: 4+ Radial (R), 4+ Radial (L), 4+ Brachial (R), 4+ Brachial (L) Abdominal Exam: Normal bowel sounds Labs/Xrays Labs Test 08/21/25 12:51 08/21/25 12:43 08/21/25 11:22 08/21/25 07:50 Range/Units Sodium Level 145 136-145 mmol/L Potassium Level 6.1 *H 3.5-5.1 mmol/L Chloride Level 112 H 98-107 mmol/L Carbon Dioxide Level 22 20-31 mmol/L Anion Gap 11 5-15 Blood Urea Nitrogen 48 H 9-23 mg/dL Creatinine 4.37 H 0.550-1.02 mg/dL Glomerular Filtration Rate Calc 10 >90 mL/min BUN/Creatinine Ratio 11.0 10.0-20.0 Serum Glucose 130 H 74-106 mg/dL Calcium Level 8.0 L 8.7-10.4 mg/dL POC Glucose 92 70-106 mg/dl Influenza Type A Antigen Positive Negative Influenza Type B Antigen Positive Negative SARS-CoV-2 Antigen (Rapid) Negative NEGATIVE Total Bilirubin 0.7 0.2-1.0 mg/dL Aspartate Amino Transferase (AST) 17 13-40 U/L Alanine Aminotransferase (ALT) 9 7-40 U/L Alkaline Phosphatase 141 H 46-116 U/L Total Protein 6.4 5.7-8.2 g/dL Albumin 2.9 L 3.2-4.8 g/dL Test 08/21/25 07:12 08/21/25 06:15 08/21/25 01:14 08/20/25 22:51 Range/Units Blood Gas Specimen Type Arterial Blood Gas Sample Site Right radial Blood Gas Patient Temperature 37.0 Arterial Blood Date Drawn [id number] Arterial Blood pH 7.206 *L 7.350-7.450 Arterial Blood Partial Pressure CO2 51.6 H 32.0-45.0 mmHg Arterial Blood Partial Pressure O2 77.0 L 83.0-108.0 mmHg Arterial Blood HCO3 20.0 L 21.0-28.0 mmol/L Arterial Blood Oxygen Saturation 94.7 94.0-98.0 % Arterial Blood Base Excess -8.3 L -2.0-3.0 mmol/L Arterial Blood Oxyhemoglobin 91.6 L 94.0-98.0 % Arterial Blood Carboxyhemoglobin 2.7 H 0.5-1.5 % Arterial Blood Methemoglobin 0.6 0.0-1.5 % Arterial Blood Deoxyhemoglobin 5.1 H 0.0-5.0 % Ulises Test Modified Blood Gas Total Hemoglobin 15.70 12.0-16.0 g/dL Blood Gas Set Respiration Rate 22.0 Blood Gas Modality Vent - ac Blood Gas Spontaneous Rate 22 FiO2 % 100.0 Blood Gas Tidal Volume 450.0 Blood Gas PEEP or CPAP 5.0 Blood Gas Critical Value Read Back Yes Blood Gas Notified Whom art Reed dnp Blood Gas Notified Time [id number] Blood Gas Notified By joyce Gan rt. White Blood Count 7.6 # 4.4-10.8 10^3/uL Red Blood Count 7.97 H 4.0-5.20 10^6/uL Hemoglobin 15.2 12.2-16.2 g/dL Hematocrit 55.8 H 36.0-46.0 % Mean Corpuscular Volume 70.0 L 80.0-100.0 fL Mean Corpuscular Hemoglobin 19.0 L 28.0-32.0 pg Mean Corpuscular Hemoglobin Concent 27.2 L 32.0-36.0 g/dL Red Cell Distribution Width 27.6 H 11.8-14.3 % Platelet Count 122 L 140-450 10^3/uL Mean Platelet Volume 8.4 6.9-10.8 fL Neutrophils (%) (Auto) 37.0-80.0 % Lymphocytes (%) (Auto) 10.0-50.0 % Monocytes (%) (Auto) 0.0-12.0 % Basophils (%) (Auto) 0.0-2.0 % Neutrophils # (Auto) 1.6-8.6 10 ^3/uL Lymphocytes # (Auto) 0.4-5.4 10 ^3/uL Monocytes # (Auto) 0-1.3 10 ^3/uL Differential Total Cells Counted 100.0 100 Neutrophils % (Manual) 87 H 37.0-80.0 Band Neutrophils % (Manual) 3 Lymphocytes % (Manual) 7 L 10.0-50.0 Monocytes % (Manual) 3 0-12 Eosinophils % (Manual) 0 0-7 Basophils % (Manual) 0 0.0-2.0 Metamyelocytes % (manual) 0 Myelocytes % (Manual) 0 Promyelocytes % (Manual) 0 Blast Cells % (Manual) 0 Nucleated Red Blood Cells 5.0 % Reactive Lymphocytes 0 Platelet Estimate Decreased Hypochromasia (manual) Slight Anisocytosis (manual) Slight Microcytosis Slight Blood Gas EPAP 8 Blood Gas IPAP 18 Troponin I High Sensitivity 27 </=34 ng/L Test 08/20/25 20:30 08/20/25 19:50 Range/Units Urine Color Light-orange Yellow Urine Clarity Turbid H Clear Urine pH 6.0 5.0-9.0 Urine Specific [place] 1.018 1.001-1.035 Urine Protein 3+ H Negative Urine Ketones Negative Negative Urine Blood 3+ H Negative /uL Urine Nitrite Negative Negative Urine Bilirubin Negative Negative Urine Urobilinogen Normal Negative mg/dL Urine Leukocyte Esterase Negative Negative /uL Urine RBC 362 0 - 4 /hpf Urine Microscopic WBC 9 H 0-5 /HPF Urine Squamous Epithelial Cells Few <5 /hpf Urine Bacteria None seen None Seen /hpf Urine Glucose 1+ H Normal mg/dL Eosinophils (%) (Auto) 0.5 0.0-7.0 % Eosinophils # (Auto) 0.1 0-0.8 10 ^3/uL Basophils # (Auto) 0.1 0-0.2 10 ^3/uL Lactic Acid Level 0.8 0.4-2.0 mmol/L B-Type Natriuretic Peptide 2515.41 0-100 pg/mL Assessment/Plan Plan Impression Acute hypercapnic respiratory failure Acute renal failure Pulmonary edema Metabolic acidosis Patient seen and examined in the ER Events High oxygen requirements On bipap 16/, 100% Respiratory status tenuous Labs and imaging reviewed BUN/Creatinine consistent with acute renal failure Chest x-ray shows infiltrates and pulmonary edema Patient hyperkalemic, K+ 7.2 ABG reviewed pH 7.01, pCO2 80, pO2 84 Management Supplemental oxygen Titrate to maintain sats 90% or above Incentive spirometry Prn bipap Antibiotics Obtain cultures Bronchodilators Diurese Monitor renal function f/u nephrology, management deferred Monitor electrolytes Supplement as needed Prognosis poor Observe for signs of decline Patient at risk for endotracheal intubation DVT prophylaxis Critical care time 35 minutes Plan discussed with: Other (Rn) IBETH PICKENS MD Aug 21, 2025 14:47
[2025-08-21] MEDS: SODIUM CHLORIDE 0.9% 1,000 ML IV ONE (14:48)
[2025-08-21] MEDS: BUMETANIDE 2.5mg/10ml (0.25 mg/ml) INJ IV ONE (14:56)
[2025-08-21] MEDS: BUMETANIDE INJECTION 10 ML ONE (14:57)
--- NOTE | 2025-08-21 16:58 | DVHPNRES ---
Progress Note Date Seen: Aug 21, 2025 Resident Creating Document: SALLY MINOR RESIDENT Medical Necessity Reason Pt with a Central, PICC or Fol: Yes The following are medically ne: Central Line, Schuster Catheter Subjective Review of Systems Ms. Marin is a 75-year-old female with prior medical history of CHF, COPD with home oxygen, gout, anxiety, diabetes mellitus, hyperlipidemia, hypertension, and PAD, who to [facility] with chief complaint of shortness of breath and back and midsternal non-radiating chest pain. At time of this evaluation the patient is intubated and sedated, history was taken from her daughter Susy at bedside and from medical record. Per her daughter, patient has been complaining of progressively worsening shortness of breath for the last 2 weeks associated with general malaise and orthopnea, describing very wet coughing sounds when her mother lays flat. She states that her mother began complaining of worsening shortness of breath associated with non-radiating midsternal chest pain which prompted her to call EMS. Per record, on seen she was saturating 74%, she was placed on CPAP with inspiration increasing to 88% on route to the emergency department. On evaluation in the ED, is afebrile, slightly hypertensive, and tachypneic saturating 81% which she was placed on BiPAP. Initial labs significant for leukocytosis of 11.3, with elevated hematocrit, and thrombocytopenia, Hyperkalemia, creatinine 4.09, BUN 46, and ABG significant for respiratory acidosis, troponins are negative, BNP 2515.41.Patient is influenza A and B positive. Chest x-ray shows moderate to severe pulmonary edema. Patient further deteriorated requiring intubation for respiratory distress. She was started on IV Lasix, IV methylprednisolone, hyperkalemia protocol, bicarbonate drip, and nitroglycerin drip. On my initial evaluation in the ED, the patient is sedated, intubated, and mechanically ventilated, currently not on pressors. Prior Medical history: CHF, COPD, gout, anxiety, type 2 diabetes mellitus, hyperlipidemia, hypertension, PAD, pulmonary hypertension Previous surgical history: Left leg stenting for PAD Allergies: Denies Social history: Daughter refers the patient smokes cigarettes with cessation approximately 20 years ago Home medications: Allopurinol, insulin, gabapentin, simvastatin, tadalafil Objective vital signs Vital Sign Date Time Temp Pulse Resp B/P (MAP) Pulse Ox O2 Delivery O2 Flow Rate FiO2 08/21/25 16:00 59 08/21/25 15:49 24 180/101 (127) 97 70 08/21/25 08:30 98.2 98.2 08/21/25 01:04 Facial BiPAP Mask Total Intake and Output 08/20/25 08/20/25 08/21/25 15:00 23:00 07:00 Intake Total 101.5 ml 150.448 ml Balance 101.5 ml 150.448 ml medications Current Medications Medications Dose Ordered Sig/Adri Route Start Time Stop Time Status Last Admin Dose Admin Methylprednisolone Sodium Succinate 40 mg Q8HR IV 08/21/25 06:00 08/21/25 14:06 40 MG Famotidine 20 mg Q12HR IV 08/21/25 10:00 08/21/25 10:08 20 MG Albuterol 2.5 mg Q4HPRN PRN NEB 08/20/25 23:15 Ipratropium [place] 0.5 mg Q4HPRN PRN NEB 08/20/25 23:15 Furosemide 40 mg DAILY IV 08/21/25 10:00 08/21/25 10:08 40 MG Multivit/Ca Carb/ B Cmplx/FA/Prenat 1 tab DAILY PO 08/21/25 10:00 08/21/25 10:09 1 TAB Ceftriaxone Sodium 50 ml @ 100 mls/hr DAILY@09 IV 08/21/25 09:00 08/21/25 09:13 100 MLS/HR Diagnostic Test (Pha) 1 strip ACHS 08/21/25 07:00 08/21/25 12:54 1 STRIP Insulin Human Regular ACHS SC 08/21/25 07:00 Dextrose 50 ml UD PRN IV 08/20/25 23:15 Sodium Chloride 10 ml Q8HR IV 08/21/25 06:00 08/21/25 14:06 10 ML Acetaminophen/ Hydrocodone Bitart 1 tab Q4HP PRN PO 08/20/25 23:15 Ondansetron HCl 4 mg Q4HP PRN IV 08/20/25 23:15 Docusate Sodium 100 mg BIDPRN PRN PO 08/20/25 23:15 Multivitamins 1 tab DAILY PO 08/21/25 10:00 08/21/25 10:09 1 TAB Acetaminophen 650 mg Q6HP PRN PO 08/20/25 23:15 Nitroglycerin 0.4 mg Q5MINP PRN SL 08/20/25 23:15 Morphine Sulfate 2 mg Q30M PRN IV 08/20/25 23:15 Midazolam HCl 100 ml @ 1 mls/hr Q24H IV 08/21/25 01:45 08/21/25 13:10 6 MLS/HR Propofol 100 ml @ 2.658 mls/ hr Q24H IV 08/21/25 04:00 08/21/25 13:08 13.29 MLS/HR Sodium Bicarbonate 100 ml/Sodium Chloride 1,100 ml @ 75 mls/hr [id number] IV 08/21/25 12:00 08/21/25 13:07 75 MLS/HR Examination General: Patient is intubated, sedated, mechanically ventilated, RASS -3 HEENT: Normocephalic, atraumatic, point pupils sluggish, no EOM, pink conjunctiva, pink moist mucous membrane, ET tube in place Respiratory/pulmonary: Bilateral chest expansion, decreased breath sounds bilaterally Cardiovascular: Normal RRR Abdomen: Obese, Abdomen nondistended, normal bowel sounds, soft, no grimacing is observed on palpation, no palpable masses. Extremities: No deformities, trace bilateral pitting edema, skin of bilateral lower extremities are extremely dry, pulses 2+ bilateral lower extremities Skin: No rashes or pruritus, there is no sacral edema present at this time. Neurological: cough and gag reflex present laboratory and microbiology Laboratory Tests 08/21/25 12:51 08/21/25 06:15 Test 08/21/25 12:51 Range/Units Serum Glucose 130 H 74-106 mg/dL Problem List/Assessment/Plan Problem List/Assessment/Plan Neurology # Sedated - Versed - Propofol Cardiovascular # Acute on chronic heart failure (systolic vs diastolic) # Pulmonary Edema - BNP 2515.41 - Chest xray 08/20/2025: Moderate to severe pulmonary edema - Chest xray 08/21/2025: Cardiomegaly with pulmonary venous congestion and edema - chocardiogram 01/14/2022: EF > 60%, Limited echo windows, mild TR, MR -New echocardiogram has been ordered - Cardiology has been consulted - Laxis 40 mg IV daily #Hypertension #Possible pulmonary hypertension Respiratory # Ventilator -intubated (08/21/2025) -On [facility] vent : VCAC Mode RR 24 TV 450ml, PEEP Of 10and FiO2 of 70% # Acute hypercapnic respiratory failure secondary to pulmonary edema # Acute COPD exacerbation - Methylprednisolone 40 mg IV - Ipratropium medneb - Albuterol medneb - Ceftriaxone 1 g IV daily #Influenza A and B - Tamiflu 30 mg BID GI # Peptic ulcer prophylaxis -Pantoprazole 40 mg IV daily # Schuster catheter Nephrology # COLE likely hemodynamically mediated/ VMN #Hyperkalemia - Per nephrology: trial of forced diuresis to enhance potassium excretion, serial chemistry panels, IV bicarbonate infusion, and avoidance of IV contrast if able, currently without urgent indication for kidney replacement therapy #Acute metabolic acidosis Infectious disease # Influenza A and B Pneumonia - Tamiflu 30 mg BID Hem/onc #Thrombocytopenia - Monitor Endocrine #Type 2 diabetes mellitus - SSI -Accu cheks DVT prophylaxis: SCD PUD prophylaxis: Pantoprazole 40 mg IV daily Lines -Central line 08/20/2025 -Schuster catheter 08/20/2025 Drips during [facility] ventilation Versed Propofol Nitroglycerin Critical care time 83 minutes excluding procedure. Code status discussed greater than 20 minutes: Full CODE STATUS. Family at bedside explained about the condition of the patient Plan discussed with Dr. Lopez Plan discussed with: Daughter, Other (Nurse) My Orders My Orders Orders - SALLY MINOR Procedure Category Date Status Time Echo 2d Mode Cardiac US 08/21/25 Logged DOP 16:53 SALLY MINOR Aug 21, 2025 16:58
[2025-08-21] MEDS: OSELTAMIVIR 30 MG CAP PO ONE (18:02)
[2025-08-21] MEDS: PANTOPRAZOLE 40 MG/10 ML VIAL INJ IV ONE (18:28)
[2025-08-21] MEDS: NITROGLYCERIN 50MG/250ML 250 ML IV SCH (20:00)
[2025-08-21 20:38] LABS: BUN/Creatinine Ratio 12.9 (10.0-20.0)
[2025-08-21 20:39] LABS: Anion Gap 13 (5-15); Blood Urea Nitrogen 55 mg/dL (9-23); Calcium 8.0 mg/dL (8.7-10.4); Carbon Dioxide 20 mmol/L (20-31); Chloride 112 mmol/L (98-107); Glucose 113 mg/dL (74-106); Sodium 145 mmol/L (136-145)
[2025-08-21 20:48] LABS: Magnesium 2.2 mg/dL (1.6-2.6)
[2025-08-21 20:50] LABS: Potassium 6.8 mmol/L (3.5-5.1)
[2025-08-21] MEDS: OSELTAMIVIR 30MG/5ML ORAL SUSP GT SCH (21:34)
[2025-08-21 23:52] LABS: Sodium 145 mmol/L (136-145)
[2025-08-21 23:53] LABS: Anion Gap 12 (5-15); Carbon Dioxide 22 mmol/L (20-31)
[2025-08-21 23:55] LABS: Calcium 7.6 mg/dL (8.7-10.4); Chloride 111 mmol/L (98-107)
[2025-08-21 23:56] LABS: Potassium 5.9 mmol/L (3.5-5.1)
[2025-08-21 23:59] LABS: BUN/Creatinine Ratio 11.5 (10.0-20.0)
[2025-08-22] VITALS (118 sets, daily range): BP systolic 80–211; BP diastolic 37–98; PULSE 47–93; RESP 0–25; TEMP 97–98.4; O2SAT 95–100
[2025-08-22 00:13] LABS: Blood Urea Nitrogen 50 mg/dL (9-23); Glucose 135 mg/dL (74-106)
--- NOTE | 2025-08-22 03:15 | DVH ---
CHEST RADIOGRAPH Indication: Intubtaed Technique: Single frontal view of the chest was obtained Comparison: XY CHEST PORTABLE on DOS: 08/21/25, XY CHEST XRAY 1 VIEW on DOS: 08/20/25, XY CHEST PORTABLE on DOS: 05/04/24 IMPRESSION: Endotracheal tube appears satisfactory position. Enteric tube tip is not visualized on this examination as the inferior aspect is excluded including the lung bases. The heart appears prominent size. There is moderate pulmonary vascular congestion. No pneumothorax.
[2025-08-22 04:37] LABS: Hemoglobin 13.0 g/dL (12.2-16.2)
[2025-08-22 04:40] LABS: Hematocrit 44.9 % (36.0-46.0); Mean Corpuscular Hemoglobin 18.9 pg (28.0-32.0); Mean Corpuscular Volume 65.4 fL (80.0-100.0); Nucleated Red Blood Cells % 2.7 %
[2025-08-22 04:52] LABS: INR 1.14 (0.9-1.15); Partial Thromboplastin Time 29.9 SEC (24.5-34.5); Prothrombin Time 11.9 sec (9.3-11.8)
[2025-08-22 04:56] LABS: Alkaline Phosphatase 105 U/L (46-116); Anion Gap 12 (5-15); BUN/Creatinine Ratio 11.5 (10.0-20.0); Carbon Dioxide 23 mmol/L (20-31); Sodium 145 mmol/L (136-145)
[2025-08-22 04:57] LABS: Bilirubin, Total 0.4 mg/dL (0.2-1.0); Blood Urea Nitrogen 52 mg/dL (9-23); Chloride 110 mmol/L (98-107); Glucose 122 mg/dL (74-106)
[2025-08-22 04:58] LABS: Alanine Aminotransferase < 9 U/L (7-40); Albumin 2.4 g/dL (3.2-4.8); Calcium 8.3 mg/dL (8.7-10.4); Total Protein 5.4 g/dL (5.7-8.2)
[2025-08-22 04:59] LABS: Potassium 5.8 mmol/L (3.5-5.1)
[2025-08-22 06:29] LABS: Base Excess -2.4 mmol/L (-2.0-3.0)
[2025-08-22 07:06] LABS: Anisocytosis Slight
[2025-08-22] MEDS: PANTOPRAZOLE 40 MG/10 ML VIAL INJ IV SCH (09:43)
[2025-08-22] MEDS ORDERED: OSELTAMIVIR 30 MG CAP PO SCH (10:00)
--- NOTE | 2025-08-22 10:15 | DVHPN2 ---
Progress Note Date Seen: Aug 22, 2025 Medical Necessity Reason Pt with a Central, PICC or Fol: Yes The following are medically ne: Central Line, Schuster Catheter Subjective Review of Systems: RESPIRATORY:Abnormal Other Systems: PATIENT SEEN AND EXAMINED BY MYSELF TODAY IN FOLLOW-UP, patient remained intubated on ventilator Objective vital signs Vital Sign Date Time Temp Pulse Resp B/P (MAP) Pulse Ox O2 Delivery O2 Flow Rate FiO2 08/22/25 09:44 129/61 08/22/25 09:20 55 24 97 50 08/22/25 09:03 97.5 207.5 08/22/25 08:00 Mechanical Ventilator+ Total Intake and Output 08/21/25 08/21/25 08/22/25 15:00 23:00 07:00 Intake Total 491.16 ml 521.26 ml 1085.682 ml Output Total 1450 ml 700 ml Balance 491.16 ml -928.74 ml 385.682 ml medications Current Medications Medications Dose Ordered Sig/Adri Route Start Time Stop Time Status Last Admin Dose Admin Methylprednisolone Sodium Succinate 40 mg Q8HR IV 08/21/25 06:00 08/22/25 05:56 40 MG Famotidine 20 mg Q12HR IV 08/21/25 10:00 08/22/25 09:43 20 MG Albuterol 2.5 mg Q4HPRN PRN NEB 08/20/25 23:15 Ipratropium [place] 0.5 mg Q4HPRN PRN NEB 08/20/25 23:15 Furosemide 40 mg DAILY IV 08/21/25 10:00 08/22/25 09:44 40 MG Multivit/Ca Carb/ B Cmplx/FA/Prenat 1 tab DAILY PO 08/21/25 10:00 08/22/25 09:44 1 TAB Ceftriaxone Sodium 50 ml @ 100 mls/hr DAILY@09 IV 08/21/25 09:00 08/22/25 08:14 100 MLS/HR Diagnostic Test (Pha) 1 strip ACHS 08/21/25 07:00 08/22/25 06:22 1 STRIP Insulin Human Regular ACHS SC 08/21/25 07:00 08/22/25 06:19 2 UNITS Dextrose 50 ml UD PRN IV 08/20/25 23:15 Sodium Chloride 10 ml Q8HR IV 08/21/25 06:00 08/22/25 05:56 10 ML Acetaminophen/ Hydrocodone Bitart 1 tab Q4HP PRN PO 08/20/25 23:15 Ondansetron HCl 4 mg Q4HP PRN IV 08/20/25 23:15 Docusate Sodium 100 mg BIDPRN PRN PO 08/20/25 23:15 Multivitamins 1 tab DAILY PO 08/21/25 10:00 08/22/25 09:44 1 TAB Acetaminophen 650 mg Q6HP PRN PO 08/20/25 23:15 Nitroglycerin 0.4 mg Q5MINP PRN SL 08/20/25 23:15 Morphine Sulfate 2 mg Q30M PRN IV 08/20/25 23:15 Midazolam HCl 100 ml @ 1 mls/hr Q24H IV 08/21/25 01:45 08/22/25 04:35 6 MLS/HR Propofol 100 ml @ 2.658 mls/ hr Q24H IV 08/21/25 04:00 08/22/25 09:22 10.632 MLS/HR Sodium Bicarbonate 100 ml/Sodium Chloride 1,100 ml @ 75 mls/hr [id number] IV 08/21/25 12:00 08/22/25 03:38 75 MLS/HR Pantoprazole Sodium 40 mg DAILY IV 08/22/25 10:00 08/22/25 09:43 40 MG Oseltamivir Phosphate 30 mg DAILY GT 08/21/25 22:00 08/26/25 21:59 08/21/25 21:34 30 MG Nitroglycerin 250 ml @ 1.5 mls/hr Q24H IV 08/21/25 20:00 Nicardipine/ Sodium Chloride 200 ml @ 50 mls/hr Q4H IV 08/21/25 23:15 Examination: LUNGS:Normal, CVS:Normal, MSK:Normal laboratory and microbiology Laboratory Tests 08/22/25 03:50 Test 08/22/25 03:50 Range/Units Serum Glucose 122 H 74-106 mg/dL Problem List/Assessment/Plan Problem List/Assessment/Plan Acute kidney injury superimposed Chronic Kidney Disease secondary hemodynamic mediated Acute hypoxic respiratory failure, patient intubated on ventilator Community-acquired pneumonia Diabetes mellitus type 2 Hyperkalemia Recommendations Kidney function slightly worsened today Increased urine output Strict I&Os Check urine electrolytes and protein excretion Check kidney ultrasound IV antibiotics Avoid nephrotoxic medications Emergent medical treatment for hyperkalemia We will continue to follow Plan discussed with: Other (Nurse) My Orders My Orders Orders - JEANNE WHITE MD Procedure Category Date Status Time Kidney US 08/22/25 Logged 10:07 Vitamin D, 25-Hydroxy LAB 08/22/25 Logged 10:07 Urine Sodium LAB 08/22/25 Logged 10:07 Urine LAB 08/22/25 Logged Protein/Creatinine Urine Creatinine LAB 08/22/25 Logged 10:07 Urinalysis LAB 08/22/25 Logged 10:07 Parathyroid Hormone LAB 08/22/25 Logged Intact 10:07 Insulin R (Human) PHA 08/22/25 Logged (Insulin R) 10:15 Dextrose 50% Syringe PHA 08/22/25 Logged 10:15 Albuterol Medneb PHA 08/22/25 Logged (Ventolin Medneb) 10:15 Furosemide Injection PHA 08/22/25 Logged (Lasix Injection) 10:15 Calcium Gluc PHA 08/22/25 Logged 1,000mg/50ml-Ns 10:15 Sodium Zirconium PHA 08/22/25 Transmitted Cyclosilicate 14:00 JEANNE WHITE MD Aug 22, 2025 10:15
[2025-08-22] MEDS: CALCIUM GLUC 1,000mg/50ml-NS 50 ML IV ONE (10:34)
[2025-08-22] MEDS: DEXTROSE (50%) 50ML SYRG IV ONE (10:34)
[2025-08-22] MEDS: SODIUM ZIRCONIUM CYCL 10 GM PAK GT SCH (10:34)
[2025-08-22] MEDS: FUROSEMIDE 20 MG/2 ML VIAL IV ONE (10:37)
[2025-08-22] MEDS: InsuLIN REG 1unit/0.01ml Soln (100units/ml) IV ONE (10:37)
--- NOTE | 2025-08-22 10:49 | DVHPN2 ---
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 HYPERKALEMIA COPD HYPERLIPIDEMIA SIGN SX COMPLEX OF NOW WITH SOB CHEST PAIN RENAL FAILURE HYPERKALEMIA RESP FAILURE REQUIRING INTUBATION vital signs Vital Sign Date Time Temp Pulse Resp B/P (MAP) Pulse Ox O2 Delivery O2 Flow Rate FiO2 08/22/25 09:44 129/61 08/22/25 09:20 55 24 97 50 08/22/25 09:03 97.5 207.5 08/22/25 08:00 Mechanical Ventilator+ Total Intake and Output 08/21/25 08/21/25 08/22/25 15:00 23:00 07:00 Intake Total 491.16 ml 521.26 ml 1085.682 ml Output Total 1450 ml 700 ml Balance 491.16 ml -928.74 ml 385.682 ml medications Current Medications Medications Dose Ordered Sig/Adri Route Start Time Stop Time Status Last Admin Dose Admin Methylprednisolone Sodium Succinate 40 mg Q8HR IV 08/21/25 06:00 08/22/25 05:56 40 MG Famotidine 20 mg Q12HR IV 08/21/25 10:00 08/22/25 09:43 20 MG Albuterol 2.5 mg Q4HPRN PRN NEB 08/20/25 23:15 Ipratropium [place] 0.5 mg Q4HPRN PRN NEB 08/20/25 23:15 Furosemide 40 mg DAILY IV 08/21/25 10:00 08/22/25 09:44 40 MG Multivit/Ca Carb/ B Cmplx/FA/Prenat 1 tab DAILY PO 08/21/25 10:00 08/22/25 09:44 1 TAB Ceftriaxone Sodium 50 ml @ 100 mls/hr DAILY@09 IV 08/21/25 09:00 08/22/25 08:14 100 MLS/HR Diagnostic Test (Pha) 1 strip ACHS 08/21/25 07:00 08/22/25 06:22 1 STRIP Insulin Human Regular ACHS SC 08/21/25 07:00 08/22/25 06:19 2 UNITS Dextrose 50 ml UD PRN IV 08/20/25 23:15 Sodium Chloride 10 ml Q8HR IV 08/21/25 06:00 08/22/25 05:56 10 ML Acetaminophen/ Hydrocodone Bitart 1 tab Q4HP PRN PO 08/20/25 23:15 Ondansetron HCl 4 mg Q4HP PRN IV 08/20/25 23:15 Docusate Sodium 100 mg BIDPRN PRN PO 08/20/25 23:15 Multivitamins 1 tab DAILY PO 08/21/25 10:00 08/22/25 09:44 1 TAB Acetaminophen 650 mg Q6HP PRN PO 08/20/25 23:15 Nitroglycerin 0.4 mg Q5MINP PRN SL 08/20/25 23:15 Morphine Sulfate 2 mg Q30M PRN IV 08/20/25 23:15 Midazolam HCl 100 ml @ 1 mls/hr Q24H IV 08/21/25 01:45 08/22/25 04:35 6 MLS/HR Propofol 100 ml @ 2.658 mls/ hr Q24H IV 08/21/25 04:00 08/22/25 09:22 10.632 MLS/HR Sodium Bicarbonate 100 ml/Sodium Chloride 1,100 ml @ 75 mls/hr [id number] IV 08/21/25 12:00 08/22/25 03:38 75 MLS/HR Pantoprazole Sodium 40 mg DAILY IV 08/22/25 10:00 08/22/25 09:43 40 MG Oseltamivir Phosphate 30 mg DAILY GT 08/21/25 22:00 08/26/25 21:59 08/21/25 21:34 30 MG Nitroglycerin 250 ml @ 1.5 mls/hr Q24H IV 08/21/25 20:00 Nicardipine/ Sodium Chloride 200 ml @ 50 mls/hr Q4H IV 08/21/25 23:15 Zirconium Oxide 10 gm TID GT 08/22/25 14:00 08/23/25 06:01 laboratory and microbiology Laboratory Tests 08/22/25 03:50 Test 08/22/25 03:50 Range/Units Serum Glucose 122 H 74-106 mg/dL Problem List ORGANIC HEART DISEASE CAD HFrEF HTN 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
--- NOTE | 2025-08-22 10:51 | DVHPN2 ---
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 HYPERKALEMIA COPD HYPERLIPIDEMIA SIGN SX COMPLEX OF NOW WITH SOB CHEST PAIN RENAL FAILURE HYPERKALEMIA RESP FAILURE REQUIRING INTUBATION vital signs Vital Sign Date Time Temp Pulse Resp B/P (MAP) Pulse Ox O2 Delivery O2 Flow Rate FiO2 08/22/25 10:37 200/91 08/22/25 09:20 55 24 97 50 08/22/25 09:03 97.5 207.5 08/22/25 08:00 Mechanical Ventilator+ Total Intake and Output 08/21/25 08/21/25 08/22/25 15:00 23:00 07:00 Intake Total 491.16 ml 521.26 ml 1085.682 ml Output Total 1450 ml 700 ml Balance 491.16 ml -928.74 ml 385.682 ml medications Current Medications Medications Dose Ordered Sig/Adri Route Start Time Stop Time Status Last Admin Dose Admin Methylprednisolone Sodium Succinate 40 mg Q8HR IV 08/21/25 06:00 08/22/25 05:56 40 MG Famotidine 20 mg Q12HR IV 08/21/25 10:00 08/22/25 09:43 20 MG Albuterol 2.5 mg Q4HPRN PRN NEB 08/20/25 23:15 Ipratropium [place] 0.5 mg Q4HPRN PRN NEB 08/20/25 23:15 Furosemide 40 mg DAILY IV 08/21/25 10:00 08/22/25 09:44 40 MG Multivit/Ca Carb/ B Cmplx/FA/Prenat 1 tab DAILY PO 08/21/25 10:00 08/22/25 09:44 1 TAB Ceftriaxone Sodium 50 ml @ 100 mls/hr DAILY@09 IV 08/21/25 09:00 08/22/25 08:14 100 MLS/HR Diagnostic Test (Pha) 1 strip ACHS 08/21/25 07:00 08/22/25 06:22 1 STRIP Insulin Human Regular ACHS SC 08/21/25 07:00 08/22/25 06:19 2 UNITS Dextrose 50 ml UD PRN IV 08/20/25 23:15 Sodium Chloride 10 ml Q8HR IV 08/21/25 06:00 08/22/25 05:56 10 ML Acetaminophen/ Hydrocodone Bitart 1 tab Q4HP PRN PO 08/20/25 23:15 Ondansetron HCl 4 mg Q4HP PRN IV 08/20/25 23:15 Docusate Sodium 100 mg BIDPRN PRN PO 08/20/25 23:15 Multivitamins 1 tab DAILY PO 08/21/25 10:00 08/22/25 09:44 1 TAB Acetaminophen 650 mg Q6HP PRN PO 08/20/25 23:15 Nitroglycerin 0.4 mg Q5MINP PRN SL 08/20/25 23:15 Morphine Sulfate 2 mg Q30M PRN IV 08/20/25 23:15 Midazolam HCl 100 ml @ 1 mls/hr Q24H IV 08/21/25 01:45 08/22/25 04:35 6 MLS/HR Propofol 100 ml @ 2.658 mls/ hr Q24H IV 08/21/25 04:00 08/22/25 09:22 10.632 MLS/HR Sodium Bicarbonate 100 ml/Sodium Chloride 1,100 ml @ 75 mls/hr [id number] IV 08/21/25 12:00 08/22/25 03:38 75 MLS/HR Pantoprazole Sodium 40 mg DAILY IV 08/22/25 10:00 08/22/25 09:43 40 MG Oseltamivir Phosphate 30 mg DAILY GT 08/21/25 22:00 08/26/25 21:59 08/21/25 21:34 30 MG Nitroglycerin 250 ml @ 1.5 mls/hr Q24H IV 08/21/25 20:00 Nicardipine/ Sodium Chloride 200 ml @ 50 mls/hr Q4H IV 08/21/25 23:15 Zirconium Oxide 10 gm TID GT 08/22/25 14:00 08/23/25 06:01 08/22/25 10:34 10 GM laboratory and microbiology Laboratory Tests 08/22/25 03:50 Test 08/22/25 03:50 Range/Units Serum Glucose 122 H 74-106 mg/dL Problem List ORGANIC HEART DISEASE CAD HFrEF HTN 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
--- NOTE | 2025-08-22 11:04 | DVH ---
CLINICAL HISTORY: COLE TECHNIQUE: Complete ultrasound exam of the kidneys and bladder was performed. COMPARISON: None FINDINGS: The right kidney has normal echogenicity and measures 11.1 cm. There is no focal parenchymal abnormality or evidence for stone. There is no hydronephrosis. The left kidney has normal echogenicity and measures 11.9 cm. There is a 1.3 cm cyst with no evidence for stone. There is no hydronephrosis. The bladder is decompressed by a Schuster catheter. IMPRESSION: NO SIGNIFICANT SONOGRAPHIC ABNORMALITY OF THE KIDNEYS.
[2025-08-22] MEDS: ALBUTEROL SULF 2.5 MG/0.5ML(0.5%) NEB SOLN NEB ONE (11:05)
[2025-08-22 12:12] LABS: Protein, Urine 204.4 mg/dL (1-14)
[2025-08-22 12:26] LABS: Urine Protein, UAD 2+ (Negative); Urine WBC Clumps PRESENT /hpf (None Seen)
--- NOTE | 2025-08-22 12:59 | DVHPNRES ---
Progress Note Date Seen: Aug 22, 2025 Resident Creating Document: SALLY MINOR RESIDENT Medical Necessity Reason Pt with a Central, PICC or Fol: Yes The following are medically ne: Central Line, Schuster Catheter Subjective Review of Systems Ms. Marin is a 75-year-old female with prior medical history of CHF, COPD with home oxygen, gout, anxiety, diabetes mellitus, hyperlipidemia, hypertension, and PAD, who to [facility] with chief complaint of shortness of breath and back and midsternal non-radiating chest pain. At time of this evaluation the patient is intubated and sedated, history was taken from her daughter Susy at bedside and from medical record. Per her daughter, patient has been complaining of progressively worsening shortness of breath for the last 2 weeks associated with general malaise and orthopnea, describing very wet coughing sounds when her mother lays flat. She states that her mother began complaining of worsening shortness of breath associated with non-radiating midsternal chest pain which prompted her to call EMS. Per record, on seen she was saturating 74%, she was placed on CPAP with inspiration increasing to 88% on route to the emergency department. On evaluation in the ED, is afebrile, slightly hypertensive, and tachypneic saturating 81% which she was placed on BiPAP. Initial labs significant for leukocytosis of 11.3, with elevated hematocrit, and thrombocytopenia, Hyperkalemia, creatinine 4.09, BUN 46, and ABG significant for respiratory acidosis, troponins are negative, BNP 2515.41.Patient is influenza A and B positive. Chest x-ray shows moderate to severe pulmonary edema. Patient further deteriorated requiring intubation for respiratory distress. She was started on IV Lasix, IV methylprednisolone, hyperkalemia protocol, bicarbonate drip, and nitroglycerin drip. On my initial evaluation in the ED, the patient is sedated, intubated, and mechanically ventilated, currently not on pressors. Prior Medical history: CHF, COPD, gout, anxiety, type 2 diabetes mellitus, hyperlipidemia, hypertension, PAD, pulmonary hypertension Previous surgical history: Left leg stenting for PAD Allergies: Denies Social history: Daughter refers the patient smokes cigarettes with cessation approximately 20 years ago Home medications: Allopurinol, insulin, gabapentin, simvastatin, tadalafil 08/22/2025: Patient was seen in ICU. She is sedated, intubated, mechanically ventilated, not on pressors. CBC shows thrombocytopenia, persists with hyperkalemia, kidney function continues to worsen. UA is significant for UTI. She is being followed by nephrology who is currently recommending recommended a kidney ultrasound and hyperkalemia protocol to reduce serum potassium. She was evaluated by her coater slate, Dr. Bahena, who recommends echocardiogram, if inconclusive possible R/LHC. Tube feeds will be initiated. We will continue to monitor. Objective vital signs Vital Sign Date Time Temp Pulse Resp B/P (MAP) Pulse Ox O2 Delivery O2 Flow Rate FiO2 08/22/25 12:00 104/47 08/22/25 12:00 24 99 Mechanical Ventilator+ 50 50 08/22/25 12:00 70 08/22/25 11:03 97.7 207.9 Total Intake and Output 08/21/25 08/21/25 08/22/25 15:00 23:00 07:00 Intake Total 491.16 ml 521.26 ml 1085.682 ml Output Total 1450 ml 700 ml Balance 491.16 ml -928.74 ml 385.682 ml medications Current Medications Medications Dose Ordered Sig/Adri Route Start Time Stop Time Status Last Admin Dose Admin Methylprednisolone Sodium Succinate 40 mg Q8HR IV 08/21/25 06:00 08/22/25 05:56 40 MG Famotidine 20 mg Q12HR IV 08/21/25 10:00 08/22/25 09:43 20 MG Albuterol 2.5 mg Q4HPRN PRN NEB 08/20/25 23:15 Ipratropium [place] 0.5 mg Q4HPRN PRN NEB 08/20/25 23:15 Furosemide 40 mg DAILY IV 08/21/25 10:00 08/22/25 09:44 40 MG Multivit/Ca Carb/ B Cmplx/FA/Prenat 1 tab DAILY PO 08/21/25 10:00 08/22/25 09:44 1 TAB Ceftriaxone Sodium 50 ml @ 100 mls/hr DAILY@09 IV 08/21/25 09:00 08/22/25 08:14 100 MLS/HR Diagnostic Test (Pha) 1 strip ACHS 08/21/25 07:00 08/22/25 11:08 1 STRIP Insulin Human Regular ACHS SC 08/21/25 07:00 08/22/25 06:19 2 UNITS Dextrose 50 ml UD PRN IV 08/20/25 23:15 Sodium Chloride 10 ml Q8HR IV 08/21/25 06:00 08/22/25 05:56 10 ML Acetaminophen/ Hydrocodone Bitart 1 tab Q4HP PRN PO 08/20/25 23:15 Ondansetron HCl 4 mg Q4HP PRN IV 08/20/25 23:15 Docusate Sodium 100 mg BIDPRN PRN PO 08/20/25 23:15 Multivitamins 1 tab DAILY PO 08/21/25 10:00 08/22/25 09:44 1 TAB Acetaminophen 650 mg Q6HP PRN PO 08/20/25 23:15 Nitroglycerin 0.4 mg Q5MINP PRN SL 08/20/25 23:15 Morphine Sulfate 2 mg Q30M PRN IV 08/20/25 23:15 Midazolam HCl 100 ml @ 1 mls/hr Q24H IV 08/21/25 01:45 08/22/25 04:35 6 MLS/HR Propofol 100 ml @ 2.658 mls/ hr Q24H IV 08/21/25 04:00 08/22/25 09:22 10.632 MLS/HR Sodium Bicarbonate 100 ml/Sodium Chloride 1,100 ml @ 75 mls/hr [id number] IV 08/21/25 12:00 08/22/25 03:38 75 MLS/HR Pantoprazole Sodium 40 mg DAILY IV 08/22/25 10:00 08/22/25 09:43 40 MG Oseltamivir Phosphate 30 mg DAILY GT 08/21/25 22:00 08/26/25 21:59 08/22/25 10:50 30 MG Nitroglycerin 250 ml @ 1.5 mls/hr Q24H IV 08/21/25 20:00 Nicardipine/ Sodium Chloride 200 ml @ 50 mls/hr Q4H IV 08/21/25 23:15 08/22/25 11:07 50 MLS/HR Zirconium Oxide 10 gm TID GT 08/22/25 14:00 08/23/25 06:01 08/22/25 10:34 10 GM Examination General: Patient is intubated, sedated, mechanically ventilated, RASS -3 HEENT: Normocephalic, atraumatic, point pupils sluggish, no EOM, pink conjunctiva, pink moist mucous membrane, ET tube in place Respiratory/pulmonary: Bilateral chest expansion, improved breath sounds bilaterally Cardiovascular: Normal RRR Abdomen: Obese, Abdomen nondistended, normal bowel sounds, soft, no grimacing is observed on palpation, no palpable masses. Extremities: No deformities, trace bilateral pitting edema, skin of bilateral lower extremities are extremely dry, pulses 2+ bilateral lower extremities Skin: No rashes or pruritus, there is no sacral edema present at this time. Neurological: cough and gag reflex present laboratory and microbiology Laboratory Tests 08/22/25 03:50 Test 08/22/25 03:50 Range/Units Serum Glucose 122 H 74-106 mg/dL Problem List/Assessment/Plan Problem List/Assessment/Plan Neurology # Sedated - Versed - Propofol: Discontinued - Fentanyl Cardiovascular # Acute on chronic HFrEF # Pulmonary Edema - BNP 2515.41 --> 370 - Chest xray 08/20/2025: Moderate to severe pulmonary edema - Chest xray 08/21/2025: Cardiomegaly with pulmonary venous congestion and edema - Echocardiogram 01/14/2022: EF > 60%, Limited echo windows, mild TR, MR -New echocardiogram has been ordered - Cardiology: Pending echo, considered R/LHC if inconclusive - Laxis 40 mg IV daily #Hypertension #CAD #Possible pulmonary hypertension Respiratory # Ventilator -intubated (08/21/2025) -On [facility] vent : VCAC Mode RR 24 TV 450ml, PEEP Of 8 and FiO2 of 70% # Acute hypercapnic respiratory failure secondary to pulmonary edema # Acute COPD exacerbation - Methylprednisolone 40 mg IV- dc - Ipratropium medneb - Albuterol medneb - Ceftriaxone 1 g IV daily #Influenza A and B - Tamiflu 30 mg BID GI # Peptic ulcer prophylaxis -Pantoprazole 40 mg IV daily # Schuster catheter Nephrology # COLE likely hemodynamically mediated/ VMN #Hyperkalemia - Per nephrology: trial of forced diuresis to enhance potassium excretion, serial chemistry panels, IV bicarbonate infusion, and avoidance of IV contrast if able, currently without urgent indication for kidney replacement therapy #Acute metabolic acidosis Infectious disease # Influenza A and B Pneumonia - Tamiflu 30 mg BID suspension Hem/onc #Thrombocytopenia - Monitor Endocrine #Type 2 diabetes mellitus - SSI -Accu cheks DVT prophylaxis: SCD PUD prophylaxis: Pantoprazole 40 mg IV daily Lines -Central line 08/20/2025 -Schuster catheter 08/20/2025 Nutrition: Nepro at a rate of 30 Drips during mech ventilation Versed Fentanyl Propofol: Discontinued Nitroglycerin: Discontinued Nicardipine drip: Discontinued Critical care time 63 minutes excluding procedure. Code status discussed greater than 20 minutes: Full CODE STATUS. Family at bedside explained about the condition of the patient Plan discussed with Dr. Lopez Plan discussed with: Daughter, Other (Nurse) My Orders My Orders Orders - SALLY MINOR RESIDENT Procedure Category Date Status Time Pantoprazole PHA 08/22/25 In Process (Protonix) 10:00 Abg W/ Co-Ox RT 08/22/25 Logged 04:00 Chest Xray 1 View XY 08/21/25 Resulted 17:38 Oseltamivir PHA 08/21/25 In Process Suspension (Tamiflu 22:00 Communication Order ORDERS 08/21/25 Transmitted 19:03 Nitroglycerin PHA 08/21/25 In Process 50mg/250ml (Tridil) 20:00 Urine Bacterial MARIMAR 08/22/25 Logged Culture 12:51 Date of Service: Aug 22, 2025 Billing Provider: PATRICIA LOPEZ MD Common Visit Codes: [id number] CARE 30-74 MIN SALLY MINOR Aug 22, 2025 12:59 PATRICIA LOPEZ MD Aug 23, 2025 12:39
[2025-08-22] MEDS ORDERED: PROPOFOL 10 MG/ML 20 ML IV ONE (17:15)
[2025-08-22] MEDS: PROPOFOL 100 ML IV SCH (17:47)
[2025-08-22] MEDS: fentaNYL Drip 2500mCg/250mlNS 250 ML IV SCH (17:54)
[2025-08-22 18:18] LABS: Anion Gap 13 (5-15); Carbon Dioxide 23 mmol/L (20-31)
[2025-08-22] MEDS: Nepro With Carb Steady 1 Liter Bottle GT SCH (18:19)
[2025-08-22 18:23] LABS: Calcium 7.9 mg/dL (8.7-10.4); Chloride 110 mmol/L (98-107); Potassium 5.5 mmol/L (3.5-5.1); Sodium 146 mmol/L (136-145)
[2025-08-22 18:25] LABS: BUN/Creatinine Ratio 12.6 (10.0-20.0); Blood Urea Nitrogen 59 mg/dL (9-23); Glucose 147 mg/dL (74-106)
[2025-08-23] VITALS (117 sets, daily range): BP systolic 112–173; BP diastolic 47–137; PULSE 55–78; RESP 0–25; TEMP 96.1–98.4; O2SAT 90–98
[2025-08-23 04:29] LABS: Hemoglobin 12.2 g/dL (12.2-16.2); Mean Corpuscular Volume 64.8 fL (80.0-100.0)
[2025-08-23 04:31] LABS: Hematocrit 42.2 % (36.0-46.0); Mean Corpuscular Hemoglobin 18.8 pg (28.0-32.0); Nucleated Red Blood Cells % 1.1 %
[2025-08-23 04:43] LABS: Anion Gap 12 (5-15); Carbon Dioxide 25 mmol/L (20-31); Potassium 4.7 mmol/L (3.5-5.1)
[2025-08-23 04:45] LABS: Calcium 7.9 mg/dL (8.7-10.4); Chloride 110 mmol/L (98-107); Sodium 147 mmol/L (136-145)
[2025-08-23 04:49] LABS: BUN/Creatinine Ratio 11.2 (10.0-20.0); Glucose 89 mg/dL (74-106)
[2025-08-23 04:59] LABS: Blood Urea Nitrogen 53 mg/dL (9-23)
--- NOTE | 2025-08-23 05:13 | DVH ---
CHEST RADIOGRAPH Indication: Eval pleural effusion Technique: Single frontal view of the chest was obtained COMPARISON: XY CHEST XRAY 1 VIEW on DOS: 08/22/25, XY CHEST PORTABLE on DOS: 08/21/25, XY CHEST XRAY 1 VIEW on DOS: 08/20/25, XY CHEST PORTABLE on DOS: 05/04/24, CHEST PORTABLE on DOS: 12/21/20 FINDINGS: Lines and Tubes: Endotracheal tube, enteric catheter in satisfactory position. Lungs: Increased interstitial prominence. This may represent pulmonary vascular congestion and/or viral pneumonia. Pleura: No effusion.No pneumothorax. Cardiomediastinal contours: Cardiomegaly. Bones: Unremarkable IMPRESSION: Lines and tubes in satisfactory position. No significant interval change.
[2025-08-23 05:54] LABS: Anisocytosis Moderate
[2025-08-23] MEDS: ALBUTEROL SULF 2.5 MG/0.5ML(0.5%) NEB SOLN NEB PRN (06:14)
[2025-08-23] MEDS: IPRATROPIUM BROM 0.5 MG/2.5ML INH SOL NEB PRN (06:14)
--- NOTE | 2025-08-23 06:23 | DVHPNRES ---
Progress Note Date Seen: Aug 23, 2025 Resident Creating Document: SALLY MINOR RESIDENT Medical Necessity Reason Pt with a Central, PICC or Fol: Yes The following are medically ne: Central Line, Schuster Catheter Subjective Review of Systems Ms. Marin is a 75-year-old female with prior medical history of CHF, COPD with home oxygen, gout, anxiety, diabetes mellitus, hyperlipidemia, hypertension, and PAD, who to [facility] with chief complaint of shortness of breath and back and midsternal non-radiating chest pain. At time of this evaluation the patient is intubated and sedated, history was taken from her daughter Susy at bedside and from medical record. Per her daughter, patient has been complaining of progressively worsening shortness of breath for the last 2 weeks associated with general malaise and orthopnea, describing very wet coughing sounds when her mother lays flat. She states that her mother began complaining of worsening shortness of breath associated with non-radiating midsternal chest pain which prompted her to call EMS. Per record, on seen she was saturating 74%, she was placed on CPAP with inspiration increasing to 88% on route to the emergency department. On evaluation in the ED, is afebrile, slightly hypertensive, and tachypneic saturating 81% which she was placed on BiPAP. Initial labs significant for leukocytosis of 11.3, with elevated hematocrit, and thrombocytopenia, Hyperkalemia, creatinine 4.09, BUN 46, and ABG significant for respiratory acidosis, troponins are negative, BNP 2515.41.Patient is influenza A and B positive. Chest x-ray shows moderate to severe pulmonary edema. Patient further deteriorated requiring intubation for respiratory distress. She was started on IV Lasix, IV methylprednisolone, hyperkalemia protocol, bicarbonate drip, and nitroglycerin drip. On my initial evaluation in the ED, the patient is sedated, intubated, and mechanically ventilated, currently not on pressors. Prior Medical history: CHF, COPD, gout, anxiety, type 2 diabetes mellitus, hyperlipidemia, hypertension, PAD, pulmonary hypertension Previous surgical history: Left leg stenting for PAD Allergies: Denies Social history: Daughter refers the patient smokes cigarettes with cessation approximately 20 years ago Home medications: Allopurinol, insulin, gabapentin, simvastatin, tadalafil 08/23/2025: Patient seen in the ICU. She is sedated, intubated, mechanically ventilated, not on pressors. She is afebrile, tends toward bradycardia, blood pressure is more in control, and saturating adequately on the ventilator. CBC is stbale. Creatinine continues to elevate, however, hyperkalemia has resolved. Patient still has a positive fluid balance for which nephrology has started the patient on Albumin and a bumex drip. Bicarbonate drip has been discontinued. Per cardiology, bumex was to be discontinued and IVF at 100cc/hr have been started. Tube feeds have been restarted. Read of echocardiogram is still pending. 08/22/2025: Patient was seen in ICU. She is sedated, intubated, mechanically ventilated, not on pressors. CBC shows thrombocytopenia, persists with hyperkalemia, kidney function continues to worsen. UA is significant for UTI. She is being followed by nephrology who is currently recommending recommended a kidney ultrasound and hyperkalemia protocol to reduce serum potassium. She was evaluated by her aids nurse, Dr. Bahena, who recommends echocardiogram, if inconclusive possible R/LHC. Tube feeds will be initiated. We will continue to monitor. Objective vital signs Vital Sign Date Time Temp Pulse Resp B/P (MAP) Pulse Ox O2 Delivery O2 Flow Rate FiO2 08/23/25 05:19 97.3 59 24 122/52 (75) 95 207.1 08/23/25 04:00 Mechanical Ventilator+ 50 50 Total Intake and Output 08/22/25 08/22/25 08/23/25 15:00 23:00 07:00 Intake Total 207.8 ml 1186.85 ml 113.5 ml Output Total 500 ml Balance 207.8 ml 686.85 ml 113.5 ml medications Current Medications Medications Dose Ordered Sig/Adri Route Start Time Stop Time Status Last Admin Dose Admin Albuterol 2.5 mg Q4HPRN PRN NEB 08/20/25 23:15 Ipratropium [place] 0.5 mg Q4HPRN PRN NEB 08/20/25 23:15 Furosemide 40 mg DAILY IV 08/21/25 10:00 08/22/25 09:44 40 MG Multivit/Ca Carb/ B Cmplx/FA/Prenat 1 tab DAILY PO 08/21/25 10:00 08/22/25 09:44 1 TAB Ceftriaxone Sodium 50 ml @ 100 mls/hr DAILY@09 IV 08/21/25 09:00 08/22/25 08:14 100 MLS/HR Diagnostic Test (Pha) 1 strip ACHS 08/21/25 07:00 08/22/25 21:50 1 STRIP Insulin Human Regular ACHS SC 08/21/25 07:00 08/22/25 21:48 2 UNITS Dextrose 50 ml UD PRN IV 08/20/25 23:15 Sodium Chloride 10 ml Q8HR IV 08/21/25 06:00 08/22/25 21:50 10 ML Docusate Sodium 100 mg BIDPRN PRN PO 08/20/25 23:15 Acetaminophen 650 mg Q6HP PRN PO 08/20/25 23:15 Nitroglycerin 0.4 mg Q5MINP PRN SL 08/20/25 23:15 Morphine Sulfate 2 mg Q30M PRN IV 08/20/25 23:15 Midazolam HCl 100 ml @ 1 mls/hr Q24H IV 08/21/25 01:45 08/22/25 19:51 6 MLS/HR Sodium Bicarbonate 100 ml/Sodium Chloride 1,100 ml @ 75 mls/hr [id number] IV 08/21/25 12:00 08/22/25 16:03 75 MLS/HR Pantoprazole Sodium 40 mg DAILY IV 08/22/25 10:00 08/22/25 09:43 40 MG Oseltamivir Phosphate 30 mg DAILY GT 08/21/25 22:00 08/26/25 21:59 08/22/25 10:50 30 MG Enteral Nutritional Formula 1,000 ml 30ML/HR GT 08/22/25 17:15 08/22/25 18:19 1,000 ML Fentanyl Citrate 250 ml @ 2.5 mls/hr Q24H IV 08/22/25 17:15 08/22/25 17:54 2.5 MLS/HR Propofol 100 ml @ 2.67 mls/hr Q24H IV 08/22/25 17:45 08/22/25 17:47 10.68 MLS/HR Examination General: Patient is intubated, sedated, mechanically ventilated, RASS -3 HEENT: Normocephalic, atraumatic, point pupils sluggish, no EOM, pink conjunctiva, pink moist mucous membrane, ET tube in place Respiratory/pulmonary: Bilateral chest expansion, improved breath sounds bilaterally Cardiovascular: Normal RRR Abdomen: Obese, Abdomen nondistended, normal bowel sounds, soft, no grimacing is observed on palpation, no palpable masses. Extremities: No deformities, edema of bilateral hands, trace bilateral pitting edema, skin of bilateral lower extremities are extremely dry, pulses 2+ bilateral lower extremities Skin: No rashes or pruritus, there is no sacral edema present at this time. Neurological: cough and gag reflex present laboratory and microbiology Laboratory Tests 08/23/25 03:50 Test 08/23/25 03:50 Range/Units Serum Glucose 89 74-106 mg/dL Problem List/Assessment/Plan Problem List/Assessment/Plan Neurology # Sedated - Versed - Propofol: Discontinued - Fentanyl Cardiovascular # Acute on chronic HFrEF # Pulmonary Edema - BNP 2515.41 --> 370 - Chest xray 08/20/2025: Moderate to severe pulmonary edema - Chest xray 08/21/2025: Cardiomegaly with pulmonary venous congestion and edema - Echocardiogram 01/14/2022: EF > 60%, Limited echo windows, mild TR, MR - New echocardiogram has been ordered, pending read - Cardiology: Pending echo, considered R/LHC if inconclusive , discontinue bumex drip - Laxis 40 mg IV daily - Per nephrology: Start bumex drip + albumin and D5W 75 cc/hour -- Bumex drip discontinued by cardiology #Hypertension #CAD #Possible pulmonary hypertension Respiratory # Ventilator -intubated (08/21/2025) -On [facility] vent : VCAC Mode RR 24 TV 450ml, PEEP Of 8 and FiO2 of 40% # Acute hypercapnic respiratory failure secondary to pulmonary edema # Acute COPD exacerbation - Methylprednisolone 40 mg IV, discontinued - Ipratropium medneb - Albuterol medneb - Ceftriaxone 1 g IV daily #Influenza A and B - Tamiflu 30 mg BID suspension GI # Peptic ulcer prophylaxis -Pantoprazole 40 mg IV daily # Schuster catheter Nephrology # COLE likely hemodynamically mediated/ VMN #Hyperkalemia, resolved - Per nephrology: trial of forced diuresis to enhance potassium excretion, serial chemistry panels, IV bicarbonate infusion, and avoidance of IV contrast if able, currently without urgent indication for kidney replacement therapy - Bicarbonate drip has been dc'd - Per Cardiology: Lokelma #Acute metabolic acidosis Infectious disease # Influenza A and B Pneumonia - Tamiflu 30 mg BID suspension Hem/onc #Thrombocytopenia - Monitor Endocrine #Type 2 diabetes mellitus - SSI -Accu cheks DVT prophylaxis: SCD PUD prophylaxis: Pantoprazole 40 mg IV daily Lines -L femoral Central line 08/20/2025 -Schuster catheter 08/20/2025 Nutrition: Nepro at a rate of 30 Drips during mech ventilation Versed 5 Fentanyl 150 Propofol: Discontinued Nitroglycerin: Discontinued Nicardipine drip: Discontinued Bicarbonate drip: Discontinued Critical care time 67 minutes excluding procedure. Code status discussed greater than 20 minutes: Full CODE STATUS. Family at bedside explained about the condition of the patient Plan discussed with Dr. Lopez Plan discussed with: Daughter, Other (Nurse) My Orders My Orders Orders - SALLY MINOR RESIDENT Procedure Category Date Status Time Urine Bacterial MARIMAR 08/22/25 In Process Culture 12:51 Apply Z-Guard CHASTITY 08/22/25 In Process 10:10 Abg W/ Co-Ox RT 08/23/25 Logged 04:00 Chest Xray 1 View XY 08/23/25 Resulted 04:00 Nutritional PHA 08/22/25 In Process Supplements (Nepro 17:15 Fentanyl Drip PHA 08/22/25 In Process 2500mcg/250mlns 17:15 Dietary Evaluation Review Comments: Nutrition Recommendation: 1) EN Nepro Carbsteady @ 30ml/hr x 24hr (goal) along with Pro-stat 1 pk BID. Water flush 50ml Q6H if allowed, adjust PRN. TF at goal volume along with propofol & Pro-stat provide 1777 kcal (100%), 89 gm protein (83%), and 723 ml free water(including flush). 2) TPN if NPO >7 days 3) Monitor NPO status, lab values, weight trend, and I/O Expected Outcomes/Goals: Intake to meet >75% estimated needs Lab values to improve FU 2-3 days Date of Service: Aug 23, 2025 Billing Provider: PATRICIA LOPEZ MD Common Visit Codes: [id number] CARE 30-74 MIN SALLY MINOR Aug 23, 2025 06:23 PATRICIA LOPEZ MD Aug 24, 2025 14:50
[2025-08-23 09:16] LABS: Base Excess 0.0 mmol/L (-2.0-3.0)
[2025-08-23 10:23] LABS: INR 1.14 (0.9-1.15); Partial Thromboplastin Time 27.5 SEC (24.5-34.5); Prothrombin Time 11.9 sec (9.3-11.8)
--- NOTE | 2025-08-23 10:28 | CONS ---
Pharmacy Clinical Information: From Heart Failure Fallout Report on CQM Application, Lliiane Marin is an 75-year-old female with PMH of CHF, COPD, anxiety, diabetes mellitus, hyperlipidemia, and hypertension Per 2024 ADA guidelines, in adults with diabetes aged < 75 years, it may be reasonable to initiate moderate-intensity statin therapy. Recommend resuming simvastatin 20 mg (home medication) as moderate-intensity statin therapy per ADA guidelines. NOVA CHAVEZ [facility] RESIDENT Aug 23, 2025 10:28
[2025-08-23] MEDS: D5W 5% 1,000 ML IV SCH (11:30)
--- NOTE | 2025-08-23 11:33 | DVHPN2 ---
Progress Note Date Seen: Aug 23, 2025 Medical Necessity Reason Pt with a Central, PICC or Fol: Yes The following are medically ne: Central Line, Schuster Catheter Subjective Review of Systems: RESPIRATORY:Abnormal Other Systems: Patient seen and examined by myself today in follow-up, patient remained intubated on ventilator Objective vital signs Vital Sign Date Time Temp Pulse Resp B/P (MAP) Pulse Ox O2 Delivery O2 Flow Rate FiO2 08/23/25 10:00 20 93 Mechanical Ventilator+ 50 50 08/23/25 10:00 61 08/23/25 10:00 145/61 (89) 08/23/25 06:34 97.5 207.5 Total Intake and Output 08/22/25 08/22/25 08/23/25 14:59 22:59 06:59 Intake Total 207.8 ml 1187.45 ml 1067.5 ml Output Total 500 ml 700 ml Balance 207.8 ml 687.45 ml 367.5 ml medications Current Medications Medications Dose Ordered Sig/Adri Route Start Time Stop Time Status Last Admin Dose Admin Albuterol 2.5 mg Q4HPRN PRN NEB 08/20/25 23:15 08/23/25 06:14 2.5 MG Ipratropium [place] 0.5 mg Q4HPRN PRN NEB 08/20/25 23:15 08/23/25 06:14 0.5 MG Furosemide 40 mg DAILY IV 08/21/25 10:00 08/23/25 09:23 40 MG Multivit/Ca Carb/ B Cmplx/FA/Prenat 1 tab DAILY PO 08/21/25 10:00 08/23/25 09:24 1 TAB Ceftriaxone Sodium 50 ml @ 100 mls/hr DAILY@09 IV 08/21/25 09:00 08/23/25 09:23 100 MLS/HR Diagnostic Test (Pha) 1 strip ACHS 08/21/25 07:00 08/23/25 11:27 1 STRIP Insulin Human Regular ACHS SC 08/21/25 07:00 08/22/25 21:48 2 UNITS Dextrose 50 ml UD PRN IV 08/20/25 23:15 Sodium Chloride 10 ml Q8HR IV 08/21/25 06:00 08/23/25 06:18 10 ML Docusate Sodium 100 mg BIDPRN PRN PO 08/20/25 23:15 Acetaminophen 650 mg Q6HP PRN PO 08/20/25 23:15 Nitroglycerin 0.4 mg Q5MINP PRN SL 08/20/25 23:15 Morphine Sulfate 2 mg Q30M PRN IV 08/20/25 23:15 Midazolam HCl 100 ml @ 1 mls/hr Q24H IV 08/21/25 01:45 08/23/25 09:32 8 MLS/HR Sodium Bicarbonate 100 ml/Sodium Chloride 1,100 ml @ 75 mls/hr [id number] IV 08/21/25 12:00 08/23/25 08:00 75 MLS/HR Pantoprazole Sodium 40 mg DAILY IV 08/22/25 10:00 08/23/25 09:23 40 MG Oseltamivir Phosphate 30 mg DAILY GT 08/21/25 22:00 08/26/25 21:59 08/23/25 09:24 30 MG Enteral Nutritional Formula 1,000 ml 30ML/HR GT 08/22/25 17:15 08/22/25 18:19 1,000 ML Fentanyl Citrate 250 ml @ 2.5 mls/hr Q24H IV 08/22/25 17:15 08/22/25 17:54 2.5 MLS/HR Propofol 100 ml @ 2.67 mls/hr Q24H IV 08/22/25 17:45 08/22/25 17:47 10.68 MLS/HR Examination: LUNGS:Normal, CVS:Normal, MSK:Normal laboratory and microbiology Laboratory Tests 08/23/25 03:50 Test 08/23/25 03:50 Range/Units Serum Glucose 89 74-106 mg/dL Microbiology Date/Time Source Procedure Growth Status 08/22/25 12:52 Urine - Schuster [place] Urine Culture - Preliminary No growth Resulted Problem List/Assessment/Plan Problem List/Assessment/Plan Acute kidney injury superimposed Chronic Kidney Disease stage III B secondary hemodynamic mediated, ATN, FeNa > 2% Acute hypoxic respiratory failure, patient intubated on ventilator Community-acquired pneumonia Diabetes mellitus type 2 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 Water flush 50ml Q6H if allowed, adjust PRN. TF at goal volume along with propofol & Pro-stat provide 1777 kcal (100%), 89 gm protein (83%), and 723 ml free water(including flush). 2) TPN if NPO >7 days 3) Monitor NPO status, lab values, weight trend, and I/O Expected Outcomes/Goals: Intake to meet >75% estimated needs Lab values to improve FU 2-3 days JEANNE WHITE MD Aug 23, 2025 11:33
--- NOTE | 2025-08-23 12:51 | DVHPN2 ---
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 HYPERKALEMIA COPD HYPERLIPIDEMIA SIGN SX COMPLEX OF NOW WITH SOB CHEST PAIN RENAL FAILURE HYPERKALEMIA RESP FAILURE REQUIRING INTUBATION vital signs Vital Sign Date Time Temp Pulse Resp B/P (MAP) Pulse Ox O2 Delivery O2 Flow Rate FiO2 08/23/25 12:19 97.5 58 24 129/56 (80) 92 207.5 08/23/25 12:00 Mechanical Ventilator+ 40 40 Total Intake and Output 08/22/25 08/22/25 08/23/25 15:00 23:00 07:00 Intake Total 207.8 ml 1186.85 ml 1051.5 ml Output Total 500 ml 700 ml Balance 207.8 ml 686.85 ml 351.5 ml medications Current Medications Medications Dose Ordered Sig/Adri Route Start Time Stop Time Status Last Admin Dose Admin Albuterol 2.5 mg Q4HPRN PRN NEB 08/20/25 23:15 08/23/25 06:14 2.5 MG Ipratropium [place] 0.5 mg Q4HPRN PRN NEB 08/20/25 23:15 08/23/25 06:14 0.5 MG Furosemide 40 mg DAILY IV 08/21/25 10:00 08/23/25 09:23 40 MG Multivit/Ca Carb/ B Cmplx/FA/Prenat 1 tab DAILY PO 08/21/25 10:00 08/23/25 09:24 1 TAB Ceftriaxone Sodium 50 ml @ 100 mls/hr DAILY@09 IV 08/21/25 09:00 08/23/25 09:23 100 MLS/HR Diagnostic Test (Pha) 1 strip ACHS 08/21/25 07:00 08/23/25 11:27 1 STRIP Insulin Human Regular ACHS SC 08/21/25 07:00 08/22/25 21:48 2 UNITS Dextrose 50 ml UD PRN IV 08/20/25 23:15 Sodium Chloride 10 ml Q8HR IV 08/21/25 06:00 08/23/25 06:18 10 ML Docusate Sodium 100 mg BIDPRN PRN PO 08/20/25 23:15 Acetaminophen 650 mg Q6HP PRN PO 08/20/25 23:15 Nitroglycerin 0.4 mg Q5MINP PRN SL 08/20/25 23:15 Morphine Sulfate 2 mg Q30M PRN IV 08/20/25 23:15 Midazolam HCl 100 ml @ 1 mls/hr Q24H IV 08/21/25 01:45 08/23/25 09:32 8 MLS/HR Pantoprazole Sodium 40 mg DAILY IV 08/22/25 10:00 08/23/25 09:23 40 MG Oseltamivir Phosphate 30 mg DAILY GT 08/21/25 22:00 08/26/25 21:59 08/23/25 09:24 30 MG Enteral Nutritional Formula 1,000 ml 30ML/HR GT 08/22/25 17:15 08/22/25 18:19 1,000 ML Fentanyl Citrate 250 ml @ 2.5 mls/hr Q24H IV 08/22/25 17:15 08/22/25 17:54 2.5 MLS/HR Propofol 100 ml @ 2.67 mls/hr Q24H IV 08/22/25 17:45 08/22/25 17:47 10.68 MLS/HR Dextrose 1,000 ml @ 75 mls/hr [id number] IV 08/23/25 11:30 08/23/25 11:30 75 MLS/HR laboratory and microbiology Laboratory Tests 08/23/25 03:50 Test 08/23/25 03:50 Range/Units Serum Glucose 89 74-106 mg/dL Problem List ORGANIC HEART DISEASE CAD HFrEF HTN 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 Water flush 50ml Q6H if allowed, adjust PRN. TF at goal volume along with propofol & Pro-stat provide 1777 kcal (100%), 89 gm protein (83%), and 723 ml free water(including flush). 2) TPN if NPO >7 days 3) Monitor NPO status, lab values, weight trend, and I/O Expected Outcomes/Goals: Intake to meet >75% estimated needs Lab values to improve FU 2-3 days Plan discussed with: Patient Critical Care Time(min): 35 RAMIN GARCIA MD Aug 23, 2025 12:51
--- NOTE | 2025-08-23 12:55 | DVHPN2 ---
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 HYPERKALEMIA COPD HYPERLIPIDEMIA SIGN SX COMPLEX OF NOW WITH SOB CHEST PAIN RENAL FAILURE HYPERKALEMIA RESP FAILURE REQUIRING INTUBATION vital signs Vital Sign Date Time Temp Pulse Resp B/P (MAP) Pulse Ox O2 Delivery O2 Flow Rate FiO2 08/23/25 12:19 97.5 58 24 129/56 (80) 92 207.5 08/23/25 12:00 Mechanical Ventilator+ 40 40 Total Intake and Output 08/22/25 08/22/25 08/23/25 15:00 23:00 07:00 Intake Total 207.8 ml 1186.85 ml 1051.5 ml Output Total 500 ml 700 ml Balance 207.8 ml 686.85 ml 351.5 ml medications Current Medications Medications Dose Ordered Sig/Adri Route Start Time Stop Time Status Last Admin Dose Admin Albuterol 2.5 mg Q4HPRN PRN NEB 08/20/25 23:15 08/23/25 06:14 2.5 MG Ipratropium [place] 0.5 mg Q4HPRN PRN NEB 08/20/25 23:15 08/23/25 06:14 0.5 MG Furosemide 40 mg DAILY IV 08/21/25 10:00 08/23/25 09:23 40 MG Multivit/Ca Carb/ B Cmplx/FA/Prenat 1 tab DAILY PO 08/21/25 10:00 08/23/25 09:24 1 TAB Ceftriaxone Sodium 50 ml @ 100 mls/hr DAILY@09 IV 08/21/25 09:00 08/23/25 09:23 100 MLS/HR Diagnostic Test (Pha) 1 strip ACHS 08/21/25 07:00 08/23/25 11:27 1 STRIP Insulin Human Regular ACHS SC 08/21/25 07:00 08/22/25 21:48 2 UNITS Dextrose 50 ml UD PRN IV 08/20/25 23:15 Sodium Chloride 10 ml Q8HR IV 08/21/25 06:00 08/23/25 06:18 10 ML Docusate Sodium 100 mg BIDPRN PRN PO 08/20/25 23:15 Acetaminophen 650 mg Q6HP PRN PO 08/20/25 23:15 Nitroglycerin 0.4 mg Q5MINP PRN SL 08/20/25 23:15 Morphine Sulfate 2 mg Q30M PRN IV 08/20/25 23:15 Midazolam HCl 100 ml @ 1 mls/hr Q24H IV 08/21/25 01:45 08/23/25 09:32 8 MLS/HR Pantoprazole Sodium 40 mg DAILY IV 08/22/25 10:00 08/23/25 09:23 40 MG Oseltamivir Phosphate 30 mg DAILY GT 08/21/25 22:00 08/26/25 21:59 08/23/25 09:24 30 MG Enteral Nutritional Formula 1,000 ml 30ML/HR GT 08/22/25 17:15 08/22/25 18:19 1,000 ML Fentanyl Citrate 250 ml @ 2.5 mls/hr Q24H IV 08/22/25 17:15 08/22/25 17:54 2.5 MLS/HR Propofol 100 ml @ 2.67 mls/hr Q24H IV 08/22/25 17:45 08/22/25 17:47 10.68 MLS/HR Dextrose 1,000 ml @ 75 mls/hr [id number] IV 08/23/25 11:30 08/23/25 11:30 75 MLS/HR laboratory and microbiology Laboratory Tests 08/23/25 03:50 Test 08/23/25 03:50 Range/Units Serum Glucose 89 74-106 mg/dL Problem List ORGANIC HEART DISEASE CAD HFrEF HTN 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 Water flush 50ml Q6H if allowed, adjust PRN. TF at goal volume along with propofol & Pro-stat provide 1777 kcal (100%), 89 gm protein (83%), and 723 ml free water(including flush). 2) TPN if NPO >7 days 3) Monitor NPO status, lab values, weight trend, and I/O Expected Outcomes/Goals: Intake to meet >75% estimated needs Lab values to improve FU 2-3 days Plan discussed with: Patient RAMIN GARCIA MD Aug 23, 2025 12:55
[2025-08-23] MEDS ORDERED: BUMETANIDE INJECTION 12.5 MG in GIVE UN-DILUTED 0 ML IV SCH (13:00)
[2025-08-23] MEDS: SODIUM ZIRCONIUM CYCL 10 GM PAK PO ONE (13:00)
[2025-08-23] MEDS: ALBUMIN 25% 100 ML IV SCH (21:34)
[2025-08-24] VITALS (117 sets, daily range): BP systolic 79–176; BP diastolic 33–93; PULSE 53–83; RESP 19–25; TEMP 97.9–98.7; O2SAT 84–98
[2025-08-24 03:43] LABS: Hemoglobin 11.4 g/dL (12.2-16.2); Mean Corpuscular Hemoglobin 18.9 pg (28.0-32.0)
[2025-08-24 03:46] LABS: Hematocrit 38.9 % (36.0-46.0); Mean Corpuscular Volume 64.7 fL (80.0-100.0); Nucleated Red Blood Cells % 0.8 %
[2025-08-24 03:49] LABS: Chloride 107 mmol/L (98-107); Potassium 4.0 mmol/L (3.5-5.1); Sodium 144 mmol/L (136-145)
[2025-08-24 03:50] LABS: Anion Gap 10 (5-15); Carbon Dioxide 27 mmol/L (20-31)
[2025-08-24 03:55] LABS: BUN/Creatinine Ratio 13.7 (10.0-20.0)
[2025-08-24 03:57] LABS: Blood Urea Nitrogen 57 mg/dL (9-23); Calcium 7.6 mg/dL (8.7-10.4); Glucose 125 mg/dL (74-106)
[2025-08-24 04:03] LABS: INR 1.15 (0.9-1.15); Partial Thromboplastin Time 29.7 SEC (24.5-34.5); Prothrombin Time 12.0 sec (9.3-11.8)
--- NOTE | 2025-08-24 04:39 | DVH ---
CHEST RADIOGRAPH Indication: Evaluate Pulmonary Effusion Technique: Single frontal view of the chest was obtained COMPARISON: XY CHEST XRAY 1 VIEW on DOS: 08/23/25, XY CHEST XRAY 1 VIEW on DOS: 08/22/25, XY CHEST PORTABLE on DOS: 08/21/25, XY CHEST XRAY 1 VIEW on DOS: 08/20/25, XY CHEST PORTABLE on DOS: 05/04/24 FINDINGS: Lines and Tubes: Unchanged. Lungs: The patient is rotated to the left. Mild Interval progression in bilateral pleural effusions and Diffuse Increased prominence of the pulmonary vasculature. No pneumothorax. Cardiomediastinal contours: Cardiomegaly. Bones: Unremarkable IMPRESSION: 1. Mild interval progression in bilateral pleural effusions and pulmonary edema. 2. Cardiomegaly. 3. Lines and tubes unchanged.
[2025-08-24 05:13] LABS: Anisocytosis Moderate
[2025-08-24 07:53] LABS: Base Excess 1.3 mmol/L (-2.0-3.0)
[2025-08-24 10:09] LABS: Alkaline Phosphatase 77 U/L (46-116); Bilirubin, Direct 0.3 mg/dL (<0.3); Bilirubin, Total 0.8 mg/dL (0.2-1.0)
[2025-08-24 10:16] LABS: Alanine Aminotransferase < 9 U/L (7-40); Albumin 2.6 g/dL (3.2-4.8); Total Protein 5.0 g/dL (5.7-8.2)
--- NOTE | 2025-08-24 10:26 | DVHPN2 ---
Progress Note Date Seen: Aug 24, 2025 Medical Necessity Reason Pt with a Central, PICC or Fol: Yes The following are medically ne: Central Line, Schuster Catheter Subjective Review of Systems: RESPIRATORY:Abnormal Other Systems: Patient seen and examined by myself today in follow-up, patient remained intubated on ventilator Objective vital signs Vital Sign Date Time Temp Pulse Resp B/P (MAP) Pulse Ox O2 Delivery O2 Flow Rate FiO2 08/24/25 09:58 136/50 08/24/25 09:48 61 24 95 40 08/24/25 08:00 Mechanical Ventilator+ 08/24/25 07:50 98.1 208.6 Total Intake and Output 08/23/25 08/23/25 08/24/25 15:00 23:00 07:00 Intake Total 393 ml 905 ml 934 ml Output Total 1300 ml 1000 ml Balance 393 ml -395 ml -66 ml medications Current Medications Medications Dose Ordered Sig/Adri Route Start Time Stop Time Status Last Admin Dose Admin Albuterol 2.5 mg Q4HPRN PRN NEB 08/20/25 23:15 08/24/25 09:44 2.5 MG Ipratropium [place] 0.5 mg Q4HPRN PRN NEB 08/20/25 23:15 08/24/25 09:44 0.5 MG Furosemide 40 mg DAILY IV 08/21/25 10:00 08/24/25 09:58 40 MG Multivit/Ca Carb/ B Cmplx/FA/Prenat 1 tab DAILY PO 08/21/25 10:00 08/24/25 09:58 1 TAB Ceftriaxone Sodium 50 ml @ 100 mls/hr DAILY@09 IV 08/21/25 09:00 08/24/25 09:48 100 MLS/HR Diagnostic Test (Pha) 1 strip ACHS 08/21/25 07:00 08/24/25 06:22 1 STRIP Insulin Human Regular ACHS SC 08/21/25 07:00 08/22/25 21:48 2 UNITS Dextrose 50 ml UD PRN IV 08/20/25 23:15 Sodium Chloride 10 ml Q8HR IV 08/21/25 06:00 08/24/25 06:11 10 ML Docusate Sodium 100 mg BIDPRN PRN PO 08/20/25 23:15 Acetaminophen 650 mg Q6HP PRN PO 08/20/25 23:15 Nitroglycerin 0.4 mg Q5MINP PRN SL 08/20/25 23:15 Morphine Sulfate 2 mg Q30M PRN IV 08/20/25 23:15 Midazolam HCl 100 ml @ 1 mls/hr Q24H IV 08/21/25 01:45 08/24/25 05:41 8 MLS/HR Pantoprazole Sodium 40 mg DAILY IV 08/22/25 10:00 08/24/25 09:58 40 MG Oseltamivir Phosphate 30 mg DAILY GT 08/21/25 22:00 08/26/25 21:59 08/24/25 09:57 30 MG Enteral Nutritional Formula 1,000 ml 30ML/HR GT 08/22/25 17:15 08/23/25 16:30 1,000 ML Fentanyl Citrate 250 ml @ 2.5 mls/hr Q24H IV 08/22/25 17:15 08/24/25 05:42 15 MLS/HR Propofol 100 ml @ 2.67 mls/hr Q24H IV 08/22/25 17:45 08/22/25 17:47 10.68 MLS/HR Dextrose 1,000 ml @ 75 mls/hr [id number] IV 08/23/25 11:30 08/24/25 01:02 75 MLS/HR Albumin Human 100 ml @ 100 mls/hr BID IV 08/23/25 22:00 08/24/25 22:59 08/24/25 09:58 100 MLS/HR Examination: LUNGS:Normal, CVS:Normal, MSK:Normal laboratory and microbiology Laboratory Tests 08/24/25 03:05 Test 08/24/25 03:05 Range/Units Serum Glucose 125 H 74-106 mg/dL Microbiology Date/Time Source Procedure Growth Status 08/22/25 12:52 Urine - Schuster Port Urine Culture - Preliminary No growth Resulted 08/22/25 08:06 Nose MRSA Screen - Final Complete Problem List/Assessment/Plan Problem List/Assessment/Plan Acute kidney injury superimposed Chronic Kidney Disease stage III B secondary hemodynamic mediated, ATN, FeNa > 2% Acute hypoxic respiratory failure, patient intubated on ventilator Community-acquired pneumonia Diabetes mellitus type 2 Nephrotic syndrome secondary to underlying diabetic nephropathy Hyperkalemia Hypernatremia due to insensible water loss Recommendations Kidney function is improving Increased urine output Hyperkalemia resolved Hypernatremia appropriately resolved Strict I&Os IVF D5W at 50 cc/hour kidney ultrasound reported within normal limit IV antibiotics Avoid nephrotoxic medications We will continue to follow Plan discussed with: Other (Nurse) My Orders My Orders Orders - JEANNE WHITE MD Procedure Category Date Status Time D5w 5% (Dextrose 5%) PHA 08/23/25 In Process 11:30 Dietary Evaluation Review Comments: Nutrition Recommendation: 1) EN Nepro Carbsteady @ 30ml/hr x 24hr (goal) along with Pro-stat 1 pk BID. Water flush 50ml Q6H if allowed, adjust PRN. TF at goal volume along with propofol & Pro-stat provide 1777 kcal (100%), 89 gm protein (83%), and 723 ml free water(including flush). 2) TPN if NPO >7 days 3) Monitor NPO status, lab values, weight trend, and I/O Expected Outcomes/Goals: Intake to meet >75% estimated needs Lab values to improve FU 2-3 days JEANNE WHITE MD Aug 24, 2025 10:26
[2025-08-24] MEDS: D5W 5% 1,000 ML IV SCH (11:00)
--- NOTE | 2025-08-24 11:17 | DVHPNRES ---
Progress Note Date Seen: Aug 24, 2025 Resident Creating Document: SALLY MINOR RESIDENT Medical Necessity Reason Pt with a Central, PICC or Fol: Yes The following are medically ne: Central Line, Schuster Catheter Subjective Review of Systems Ms. Marin is a 75-year-old female with prior medical history of CHF, COPD with home oxygen, gout, anxiety, diabetes mellitus, hyperlipidemia, hypertension, and PAD, who to [facility] with chief complaint of shortness of breath and back and midsternal non-radiating chest pain. At time of this evaluation the patient is intubated and sedated, history was taken from her daughter Susy at bedside and from medical record. Per her daughter, patient has been complaining of progressively worsening shortness of breath for the last 2 weeks associated with general malaise and orthopnea, describing very wet coughing sounds when her mother lays flat. She states that her mother began complaining of worsening shortness of breath associated with non-radiating midsternal chest pain which prompted her to call EMS. Per record, on seen she was saturating 74%, she was placed on CPAP with inspiration increasing to 88% on route to the emergency department. On evaluation in the ED, is afebrile, slightly hypertensive, and tachypneic saturating 81% which she was placed on BiPAP. Initial labs significant for leukocytosis of 11.3, with elevated hematocrit, and thrombocytopenia, Hyperkalemia, creatinine 4.09, BUN 46, and ABG significant for respiratory acidosis, troponins are negative, BNP 2515.41.Patient is influenza A and B positive. Chest x-ray shows moderate to severe pulmonary edema. Patient further deteriorated requiring intubation for respiratory distress. She was started on IV Lasix, IV methylprednisolone, hyperkalemia protocol, bicarbonate drip, and nitroglycerin drip. On my initial evaluation in the ED, the patient is sedated, intubated, and mechanically ventilated, currently not on pressors. Prior Medical history: CHF, COPD, gout, anxiety, type 2 diabetes mellitus, hyperlipidemia, hypertension, PAD, pulmonary hypertension Previous surgical history: Left leg stenting for PAD Allergies: Denies Social history: Daughter refers the patient smokes cigarettes with cessation approximately 20 years ago Home medications: Allopurinol, insulin, gabapentin, simvastatin, tadalafil 08/24/2025: Patient seen in the ICU. She is sedated, intubated, mechanically ventilated, not on pressors. Per nurse, Bonnie, the patient had some bloody secretions suctioned out of ET tube today. She is afebrile, continues to tend toward bradycardia, with improved blood pressure control. Hemoglobin and platelets are trending down. Renal function and output have improved. Given that sodium is corrected, D5W has been corrected. Per Dr. Bahena, the patient will go to L and right heart cath on Friday. We will continue to monitor. 08/23/2025: Patient seen in the ICU. She is sedated, intubated, mechanically ventilated, not on pressors. She is afebrile, tends toward bradycardia, blood pressure is more in control, and saturating adequately on the ventilator. CBC is stbale. Creatinine continues to elevate, however, hyperkalemia has resolved. Patient still has a positive fluid balance for which nephrology has started the patient on Albumin and a bumex drip. Bicarbonate drip has been discontinued. Per cardiology, bumex was to be discontinued and IVF at 100cc/hr have been started. Tube feeds have been restarted. Read of echocardiogram is still pending. 08/22/2025: Patient was seen in ICU. She is sedated, intubated, mechanically ventilated, not on pressors. CBC shows thrombocytopenia, persists with hyperkalemia, kidney function continues to worsen. UA is significant for UTI. She is being followed by nephrology who is currently recommending recommended a kidney ultrasound and hyperkalemia protocol to reduce serum potassium. She was evaluated by her jeeper operator, Dr. Bahena, who recommends echocardiogram, if inconclusive possible R/LHC. Tube feeds will be initiated. We will continue to monitor. Objective vital signs Vital Sign Date Time Temp Pulse Resp B/P (MAP) Pulse Ox O2 Delivery O2 Flow Rate FiO2 08/24/25 09:58 136/50 08/24/25 09:48 61 24 95 40 08/24/25 08:00 Mechanical Ventilator+ 08/24/25 07:50 98.1 208.6 Total Intake and Output 08/23/25 08/23/25 08/24/25 15:00 23:00 07:00 Intake Total 393 ml 905 ml 934 ml Output Total 1300 ml 1000 ml Balance 393 ml -395 ml -66 ml medications Current Medications Medications Dose Ordered Sig/Adri Route Start Time Stop Time Status Last Admin Dose Admin Albuterol 2.5 mg Q4HPRN PRN NEB 08/20/25 23:15 08/24/25 09:44 2.5 MG Ipratropium [place] 0.5 mg Q4HPRN PRN NEB 08/20/25 23:15 08/24/25 09:44 0.5 MG Furosemide 40 mg DAILY IV 08/21/25 10:00 08/24/25 09:58 40 MG Multivit/Ca Carb/ B Cmplx/FA/Prenat 1 tab DAILY PO 08/21/25 10:00 08/24/25 09:58 1 TAB Ceftriaxone Sodium 50 ml @ 100 mls/hr DAILY@09 IV 08/21/25 09:00 08/24/25 09:48 100 MLS/HR Diagnostic Test (Pha) 1 strip ACHS 08/21/25 07:00 08/24/25 06:22 1 STRIP Insulin Human Regular ACHS SC 08/21/25 07:00 08/22/25 21:48 2 UNITS Dextrose 50 ml UD PRN IV 08/20/25 23:15 Sodium Chloride 10 ml Q8HR IV 08/21/25 06:00 08/24/25 06:11 10 ML Docusate Sodium 100 mg BIDPRN PRN PO 08/20/25 23:15 Acetaminophen 650 mg Q6HP PRN PO 08/20/25 23:15 Nitroglycerin 0.4 mg Q5MINP PRN SL 08/20/25 23:15 Morphine Sulfate 2 mg Q30M PRN IV 08/20/25 23:15 Midazolam HCl 100 ml @ 1 mls/hr Q24H IV 08/21/25 01:45 08/24/25 05:41 8 MLS/HR Pantoprazole Sodium 40 mg DAILY IV 08/22/25 10:00 08/24/25 09:58 40 MG Oseltamivir Phosphate 30 mg DAILY GT 08/21/25 22:00 08/26/25 21:59 08/24/25 09:57 30 MG Enteral Nutritional Formula 1,000 ml 30ML/HR GT 08/22/25 17:15 08/23/25 16:30 1,000 ML Fentanyl Citrate 250 ml @ 2.5 mls/hr Q24H IV 08/22/25 17:15 08/24/25 05:42 15 MLS/HR Propofol 100 ml @ 2.67 mls/hr Q24H IV 08/22/25 17:45 08/22/25 17:47 10.68 MLS/HR Albumin Human 100 ml @ 100 mls/hr BID IV 08/23/25 22:00 08/24/25 22:59 08/24/25 09:58 100 MLS/HR Dextrose 1,000 ml @ 50 mls/hr Q20H IV 08/24/25 10:30 Examination General: Patient is intubated, sedated, mechanically ventilated, RASS -3, is reactive to painful stimulus HEENT: Normocephalic, atraumatic, pin point pupils sluggish, no EOM, pink conjunctiva, pink moist mucous membrane, ET tube in place Respiratory/pulmonary: Bilateral chest expansion, improved breath sounds bilaterally Cardiovascular: Normal RRR Abdomen: Obese, Abdomen nondistended, normal bowel sounds, soft, no grimacing is observed on palpation, no palpable masses. Extremities: No deformities, edema of bilateral hands, trace bilateral pitting edema, skin of bilateral lower extremities are extremely dry, pulses 2+ bilateral lower extremities, left femoral central venous catheter present Skin: No rashes or pruritus, there is no sacral edema present at this time. Neurological: cough and gag reflex present laboratory and microbiology Laboratory Tests 08/24/25 03:05 Test 08/24/25 03:05 Range/Units Serum Glucose 125 H 74-106 mg/dL Microbiology Date/Time Source Procedure Growth Status 08/22/25 12:52 Urine - Schuster Port Urine Culture - Preliminary No growth Resulted 08/22/25 08:06 Nose MRSA Screen - Final Complete Problem List/Assessment/Plan Problem List/Assessment/Plan Neurology # Sedated - Versed 8 - Propofol: Discontinued - Fentanyl 150 Cardiovascular # Acute on chronic HFrEF # Pulmonary Edema - BNP 2515.41 --> 370 - Chest xray 08/20/2025: Moderate to severe pulmonary edema - Chest xray 08/21/2025: Cardiomegaly with pulmonary venous congestion and edema - Echocardiogram 01/14/2022: EF > 60%, Limited echo windows, mild TR, MR - New echocardiogram has been ordered, pending read - Cardiology: Pending echo, considered R/LHC if inconclusive , discontinue bumex drip - [place] 40 mg IV daily - Per nephrology: Start bumex drip + albumin and D5W 75 cc/hour -- Bumex drip discontinued by cardiology #Hypertension #CAD - Patient will go to right and left heart cath on Friday #Possible pulmonary hypertension Respiratory # Ventilator -intubated (08/21/2025) -On [facility] vent : VCAC Mode RR 24 TV 450ml, PEEP Of 8 and FiO2 of 45% # Acute hypercapnic respiratory failure secondary to pulmonary edema # Acute COPD exacerbation - Methylprednisolone 40 mg IV, discontinued - Ipratropium medneb - Albuterol medneb - Ceftriaxone 1 g IV daily #Influenza A and B - Tamiflu 30 mg BID suspension GI # Peptic ulcer prophylaxis -Pantoprazole 40 mg IV daily # Schuster catheter Nephrology # COLE likely hemodynamically mediated/ VMN #Hyperkalemia, resolved - Per nephrology: trial of forced diuresis to enhance potassium excretion, serial chemistry panels, IV bicarbonate infusion, and avoidance of IV contrast if able, currently without urgent indication for kidney replacement therapy - Bicarbonate drip has been dc'd - Per Cardiology: Zoran . #Acute metabolic acidosis #Hypernatremia, resolved - D5W, discontinued Infectious disease # Influenza A and B Pneumonia - Tamiflu 30 mg BID suspension Hem/onc #Thrombocytopenia - Monitor Endocrine #Type 2 diabetes mellitus - SSI -Accu cheks DVT prophylaxis: SCD PUD prophylaxis: Pantoprazole 40 mg IV daily Lines -L femoral Central line 08/20/2025 -Schuster catheter 08/20/2025 -ET tube: 08/21/2025 Nutrition: Nepro at a rate of 30 Drips during [facility] ventilation Versed 8 Fentanyl 150 Propofol: Discontinued Nitroglycerin: Discontinued Nicardipine drip: Discontinued Bicarbonate drip: Discontinued Critical care time 51 minutes excluding procedure. Code status discussed greater than 20 minutes: Full CODE STATUS. Family at bedside explained about the condition of the patient Plan discussed with Dr. Lopez Plan discussed with: Daughter, Other (Nurse) My Orders My Orders Orders - SALLY MINOR RESIDENT Procedure Category Date Status Time Albumin 25% (Albutein) PHA 08/23/25 In Process 22:00 Diet CHASTITY 08/23/25 In Process 13:48 Abg W/ Co-Ox RT 08/24/25 Logged 04:00 Chest Xray 1 View XY 08/24/25 Resulted 04:00 Haptoglobin LAB 08/24/25 Logged 08:42 [place] Stain Slide LAB 08/24/25 In Process 08:42 Dietary Evaluation Review Comments: Nutrition Recommendation: 1) EN Nepro Carbsteady @ 30ml/hr x 24hr (goal) along with Pro-stat 1 pk BID. Water flush 50ml Q6H if allowed, adjust PRN. TF at goal volume along with propofol & Pro-stat provide 1777 kcal (100%), 89 gm protein (83%), and 723 ml free water(including flush). 2) TPN if NPO >7 days 3) Monitor NPO status, lab values, weight trend, and I/O Expected Outcomes/Goals: Intake to meet >75% estimated needs Lab values to improve FU 2-3 days Date of Service: Aug 24, 2025 Billing Provider: PATRICIA LOPEZ MD Common Visit Codes: 84426-[id number] CARE 30-74 MIN SALLY MINOR RESIDENT Aug 24, 2025 11:17 PATRICIA LOPEZ MD Aug 25, 2025 11:25
[2025-08-24] MEDS ORDERED: HYDR-3682 PO (12:37)
[2025-08-24] MEDS ORDERED: PREG50CA PO (12:37)
[2025-08-24] MEDS ORDERED: ESOM1CAP38 PO (12:37)
[2025-08-24] MEDS ORDERED: TEMA30CA PO (12:37)
[2025-08-24] MEDS ORDERED: SACU1TAB PO (12:37)
[2025-08-24] MEDS ORDERED: AUG875T PO (12:37)
[2025-08-24] MEDS ORDERED: CARV12.544 PO (12:37)
[2025-08-24] MEDS ORDERED: TRAM50TA2 PO (12:37)
[2025-08-24] MEDS ORDERED: TIZA4TAB9 PO (12:37)
--- NOTE | 2025-08-24 15:30 | DVHPN2 ---
Progress Note - Dictate Date Seen: Aug 24, 2025 Medical Necessity Reason Pt with a Central, PICC or Fol: Yes The following are medically ne: Central Line, Schuster Catheter Subjective PT WELL KNOWN TO ME ORGANIC HEART DISEASE CAD HFrEF HTN 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 HYPERKALEMIA COPD HYPERLIPIDEMIA SIGN SX COMPLEX OF NOW WITH SOB CHEST PAIN RENAL FAILURE HYPERKALEMIA RESP FAILURE REQUIRING INTUBATION vital signs Vital Sign Date Time Temp Pulse Resp B/P (MAP) Pulse Ox O2 Delivery O2 Flow Rate FiO2 08/24/25 14:05 24 91 Mechanical Ventilator+ 45 45 08/24/25 14:05 63 08/24/25 14:05 116/46 (69) 08/24/25 13:35 98.1 208.6 Total Intake and Output 08/23/25 08/23/25 08/24/25 15:00 23:00 07:00 Intake Total 393 ml 905 ml 934 ml Output Total 1300 ml 1000 ml Balance 393 ml -395 ml -66 ml medications Current Medications Medications Dose Ordered Sig/Adri Route Start Time Stop Time Status Last Admin Dose Admin Albuterol 2.5 mg Q4HPRN PRN NEB 08/20/25 23:15 08/24/25 09:44 2.5 MG Ipratropium [place] 0.5 mg Q4HPRN PRN NEB 08/20/25 23:15 08/24/25 09:44 0.5 MG Furosemide 40 mg DAILY IV 08/21/25 10:00 08/24/25 09:58 40 MG Multivit/Ca Carb/ B Cmplx/FA/Prenat 1 tab DAILY PO 08/21/25 10:00 08/24/25 09:58 1 TAB Ceftriaxone Sodium 50 ml @ 100 mls/hr DAILY@09 IV 08/21/25 09:00 08/24/25 09:48 100 MLS/HR Diagnostic Test (Pha) 1 strip ACHS 08/21/25 07:00 08/24/25 11:51 1 STRIP Insulin Human Regular ACHS SC 08/21/25 07:00 08/22/25 21:48 2 UNITS Dextrose 50 ml UD PRN IV 08/20/25 23:15 Sodium Chloride 10 ml Q8HR IV 08/21/25 06:00 08/24/25 06:11 10 ML Docusate Sodium 100 mg BIDPRN PRN PO 08/20/25 23:15 Acetaminophen 650 mg Q6HP PRN PO 08/20/25 23:15 Nitroglycerin 0.4 mg Q5MINP PRN SL 08/20/25 23:15 Morphine Sulfate 2 mg Q30M PRN IV 08/20/25 23:15 Midazolam HCl 100 ml @ 1 mls/hr Q24H IV 08/21/25 01:45 08/24/25 05:41 8 MLS/HR Pantoprazole Sodium 40 mg DAILY IV 08/22/25 10:00 08/24/25 09:58 40 MG Oseltamivir Phosphate 30 mg DAILY GT 08/21/25 22:00 08/26/25 21:59 08/24/25 09:57 30 MG Enteral Nutritional Formula 1,000 ml 30ML/HR GT 08/22/25 17:15 08/23/25 16:30 1,000 ML Fentanyl Citrate 250 ml @ 2.5 mls/hr Q24H IV 08/22/25 17:15 08/24/25 05:42 15 MLS/HR Propofol 100 ml @ 2.67 mls/hr Q24H IV 08/22/25 17:45 08/22/25 17:47 10.68 MLS/HR Albumin Human 100 ml @ 100 mls/hr BID IV 08/23/25 22:00 08/24/25 22:59 08/24/25 09:58 100 MLS/HR laboratory and microbiology Laboratory Tests 08/24/25 03:05 Test 08/24/25 03:05 Range/Units Serum Glucose 125 H 74-106 mg/dL Problem List ORGANIC HEART DISEASE CAD HFrEF HTN 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 Water flush 50ml Q6H if allowed, adjust PRN. TF at goal volume along with propofol & Pro-stat provide 1777 kcal (100%), 89 gm protein (83%), and 723 ml free water(including flush). 2) TPN if NPO >7 days 3) Monitor NPO status, lab values, weight trend, and I/O Expected Outcomes/Goals: Intake to meet >75% estimated needs Lab values to improve FU 2-3 days Plan discussed with: Patient, Son Critical Care Time(min): 35 RAMIN GARCIA MD Aug 24, 2025 15:30
--- NOTE | 2025-08-24 18:24 | DVHSR ---
APPROVED REPORT EXAM: Two-dimensional and M-mode echocardiogram with Doppler and color Doppler. Blood Pressure: 121/66 mmHg INDICATION Heart Failure RISK FACTORS Height: 5'8", Weight: 196 DIMENSIONS LVDd 4.6 (3.8-5.7cm) LA (2D) 4.1 (1.9-4.0cm) Aortic Root (2.0-3.7cm) LVDs 3.3 (2.5-4.0cm) LA (MM) (1.9-4.0cm) Aortic Cusp Exc (1.5-2.0cm) EF (%) 55.0 (55-70%) Rt. Atrium (1.9-4.0cm) Asc. Aorta cm IVSd 1.0 (0.7-1.1cm) RV (D) (1.8-2.4cm) PWd 5.0 (0.7-1.1cm) Mitral Valve Mitral Mitral Stenosis E wave 0.90m/s MV Mean GR. mmHg A wave 0.79m/s MV Peak GR. mmHg E/A ratio 1.1 2D MVA cm2 DECEL Time 187ms PRESS 1/2 Time ms Aortic Valve Aortic Valve Aortic Stenosis V1 0.98m/s AO Mean GR. 5mmHg V2 1.56m/s AO Peak GR. 10mmHg LVOT Diameter 1.0 (1.8-2.4cm) Doppler MARCELINO 0.49cm2 Other Information Quality : Technically Limited Rhythm : Technically limited study due to body habitus and on vent. Conclusion Technically good study sinus rhythm. Concentric LVH with left atrial enlargement. Mild aortic sclerosis. Mild thickening of the anterior and posterior mitral leaflets. Valves appear to be structurally normal. Left ventricular function is preserved at 60% with normal RV function.
[2025-08-25] VITALS (114 sets, daily range): BP systolic 97–179; BP diastolic 39–123; PULSE 49–77; RESP 9–25; TEMP 46.6; O2SAT 92–97
[2025-08-25 04:04] LABS: Hematocrit 41.0 % (36.0-46.0); Hemoglobin 12.0 g/dL (12.2-16.2); Mean Corpuscular Hemoglobin 19.1 pg (28.0-32.0); Mean Corpuscular Volume 64.9 fL (80.0-100.0); Nucleated Red Blood Cells % 0.3 %
[2025-08-25 04:10] LABS: Potassium 3.7 mmol/L (3.5-5.1); Sodium 144 mmol/L (136-145)
[2025-08-25 04:11] LABS: Anion Gap 10 (5-15); Carbon Dioxide 27 mmol/L (20-31)
[2025-08-25 04:16] LABS: BUN/Creatinine Ratio 13.0 (10.0-20.0); Glucose 89 mg/dL (74-106)
[2025-08-25 04:17] LABS: Blood Urea Nitrogen 52 mg/dL (9-23); Calcium 8.2 mg/dL (8.7-10.4); Chloride 107 mmol/L (98-107); Magnesium 1.9 mg/dL (1.6-2.6)
[2025-08-25 04:53] LABS: Anisocytosis Moderate
--- NOTE | 2025-08-25 05:54 | DVH ---
CHEST RADIOGRAPH Indication: Intubated Technique: XY CHEST XRAY 1 VIEW COMPARISON: 08/24/2025 FINDINGS: Endotracheal tube tip projects 3.9 cm above the delfino. Nasogastric tube projects towards stomach. The cardiac silhouette is enlarged. The lungs demonstrate bilateral patchy airspace opacities. The pulmonary vasculature is prominent. Small to moderate bilateral pleural effusions, similar to previous examination. There is no pneumothorax. IMPRESSION: Cardiomegaly with pulmonary vascular congestion and bilateral patchy airspace opacities. Overall appears increased from previous examination. Small to moderate bilateral pleural effusions, increased from prior. Support lines and tubes as above.
[2025-08-25 07:00] LABS: Base Excess 0.7 mmol/L (-2.0-3.0)
--- NOTE | 2025-08-25 10:19 | DVHPNRES ---
Progress Note Date Seen: Aug 25, 2025 Resident Creating Document: SALLY MINOR RESIDENT Medical Necessity Reason Pt with a Central, PICC or Fol: Yes The following are medically ne: Central Line, Schuster Catheter Subjective Review of Systems Ms. Marin is a 75-year-old female with prior medical history of CHF, COPD with home oxygen, gout, anxiety, diabetes mellitus, hyperlipidemia, hypertension, and PAD, who to [facility] with chief complaint of shortness of breath and back and midsternal non-radiating chest pain. At time of this evaluation the patient is intubated and sedated, history was taken from her daughter Susy at bedside and from medical record. Per her daughter, patient has been complaining of progressively worsening shortness of breath for the last 2 weeks associated with general malaise and orthopnea, describing very wet coughing sounds when her mother lays flat. She states that her mother began complaining of worsening shortness of breath associated with non-radiating midsternal chest pain which prompted her to call EMS. Per record, on seen she was saturating 74%, she was placed on CPAP with inspiration increasing to 88% on route to the emergency department. On evaluation in the ED, is afebrile, slightly hypertensive, and tachypneic saturating 81% which she was placed on BiPAP. Initial labs significant for leukocytosis of 11.3, with elevated hematocrit, and thrombocytopenia, Hyperkalemia, creatinine 4.09, BUN 46, and ABG significant for respiratory acidosis, troponins are negative, BNP 2515.41.Patient is influenza A and B positive. Chest x-ray shows moderate to severe pulmonary edema. Patient further deteriorated requiring intubation for respiratory distress. She was started on IV Lasix, IV methylprednisolone, hyperkalemia protocol, bicarbonate drip, and nitroglycerin drip. On my initial evaluation in the ED, the patient is sedated, intubated, and mechanically ventilated, currently not on pressors. Prior Medical history: CHF, COPD, gout, anxiety, type 2 diabetes mellitus, hyperlipidemia, hypertension, PAD, pulmonary hypertension Previous surgical history: Left leg stenting for PAD Allergies: Denies Social history: Daughter refers the patient smokes cigarettes with cessation approximately 20 years ago Home medications: Allopurinol, insulin, gabapentin, simvastatin, tadalafil 08/25/2025: Patient seen in the ICU. She is sedated, intubated, mechanically ventilated, not on pressors. She is afebrile, bradycardic, mostly hypertensive. Hemoglobin and platelets are improving. Renal function is improved. Chest xray is showing increased pleural effusion. 08/24/2025: Patient seen in the ICU. She is sedated, intubated, mechanically ventilated, not on pressors. Per nurse, Bonnie, the patient had some bloody secretions suctioned out of ET tube today. She is afebrile, continues to tend toward bradycardia, with improved blood pressure control. Hemoglobin and platelets are trending down. Renal function and output have improved. Given that sodium is corrected, D5W has been corrected. Per Dr. Bahena, the patient will go to L and right heart cath on Friday. We will continue to monitor. 08/23/2025: Patient seen in the ICU. She is sedated, intubated, mechanically ventilated, not on pressors. She is afebrile, tends toward bradycardia, blood pressure is more in control, and saturating adequately on the ventilator. CBC is stbale. Creatinine continues to elevate, however, hyperkalemia has resolved. Patient still has a positive fluid balance for which nephrology has started the patient on Albumin and a bumex drip. Bicarbonate drip has been discontinued. Per cardiology, bumex was to be discontinued and IVF at 100cc/hr have been started. Tube feeds have been restarted. Read of echocardiogram is still pending. 08/22/2025: Patient was seen in ICU. She is sedated, intubated, mechanically ventilated, not on pressors. CBC shows thrombocytopenia, persists with hyperkalemia, kidney function continues to worsen. UA is significant for UTI. She is being followed by nephrology who is currently recommending recommended a kidney ultrasound and hyperkalemia protocol to reduce serum potassium. She was evaluated by her sandwich board carrier, Dr. Bahena, who recommends echocardiogram, if inconclusive possible R/LHC. Tube feeds will be initiated. We will continue to monitor Objective vital signs Vital Sign Date Time Temp Pulse Resp B/P (MAP) Pulse Ox O2 Delivery O2 Flow Rate FiO2 08/25/25 08:51 97.3 62 23 146/54 (84) 94 207.1 08/25/25 08:45 45 08/25/25 08:00 Mechanical Ventilator+ Total Intake and Output 08/24/25 08/24/25 08/25/25 15:00 23:00 07:00 Intake Total 784 ml 996 ml 514 ml Output Total 2500 ml 1250 ml Balance 784 ml -1504 ml -736 ml medications Current Medications Medications Dose Ordered Sig/Adri Route Start Time Stop Time Status Last Admin Dose Admin Albuterol 2.5 mg Q4HPRN PRN NEB 08/20/25 23:15 08/24/25 23:51 2.5 MG Ipratropium [place] 0.5 mg Q4HPRN PRN NEB 08/20/25 23:15 08/24/25 23:51 0.5 MG Furosemide 40 mg DAILY IV 08/21/25 10:00 08/25/25 08:02 40 MG Multivit/Ca Carb/ B Cmplx/FA/Prenat 1 tab DAILY PO 08/21/25 10:00 08/25/25 08:02 1 TAB Ceftriaxone Sodium 50 ml @ 100 mls/hr DAILY@09 IV 08/21/25 09:00 08/25/25 08:02 100 MLS/HR Diagnostic Test (Pha) 1 strip ACHS 08/21/25 07:00 08/25/25 06:21 1 STRIP Insulin Human Regular ACHS SC 08/21/25 07:00 08/24/25 22:00 2 UNITS Dextrose 50 ml UD PRN IV 08/20/25 23:15 Sodium Chloride 10 ml Q8HR IV 08/21/25 06:00 08/25/25 08:03 10 ML Docusate Sodium 100 mg BIDPRN PRN PO 08/20/25 23:15 Acetaminophen 650 mg Q6HP PRN PO 08/20/25 23:15 Nitroglycerin 0.4 mg Q5MINP PRN SL 08/20/25 23:15 Morphine Sulfate 2 mg Q30M PRN IV 08/20/25 23:15 Midazolam HCl 100 ml @ 1 mls/hr Q24H IV 08/21/25 01:45 08/25/25 05:05 8 MLS/HR Pantoprazole Sodium 40 mg DAILY IV 08/22/25 10:00 08/25/25 08:02 40 MG Oseltamivir Phosphate 30 mg DAILY GT 08/21/25 22:00 08/26/25 21:59 08/25/25 08:03 30 MG Enteral Nutritional Formula 1,000 ml 30ML/HR GT 08/22/25 17:15 08/23/25 16:30 1,000 ML Fentanyl Citrate 250 ml @ 2.5 mls/hr Q24H IV 08/22/25 17:15 08/24/25 18:47 15 MLS/HR Propofol 100 ml @ 2.67 mls/hr Q24H IV 08/22/25 17:45 08/22/25 17:47 10.68 MLS/HR Examination General: Patient is intubated, sedated, mechanically ventilated, RASS -3, is reactive to painful stimulus HEENT: Normocephalic, atraumatic, pin point pupils sluggish, no EOM, pink conjunctiva, pink moist mucous membrane, ET tube in place Respiratory/pulmonary: Bilateral chest expansion, improved breath sounds bilaterally Cardiovascular: Normal RRR Abdomen: Obese, Abdomen nondistended, normal bowel sounds, soft, no grimacing is observed on palpation, no palpable masses. Extremities: No deformities, edema of bilateral hands, trace bilateral pitting edema, skin of bilateral lower extremities are extremely dry, pulses 2+ bilateral lower extremities, left femoral central venous catheter present Skin: No rashes or pruritus, there is no sacral edema present at this time. Neurological: cough and gag reflex present laboratory and microbiology Laboratory Tests 08/25/25 03:51 Test 08/25/25 03:51 Range/Units Serum Glucose 89 74-106 mg/dL Microbiology Date/Time Source Procedure Growth Status 08/22/25 12:52 Urine - Schuster Port Urine Culture - Final Complete 08/22/25 08:06 Nose MRSA Screen - Final Complete Problem List/Assessment/Plan Problem List/Assessment/Plan Neurology # Sedated - Versed 8 - Propofol: Discontinued - Fentanyl 150 Cardiovascular # Acute on chronic HFrEF # Pulmonary Edema - BNP 2515.41 --> 370 - Chest xray 08/20/2025: Moderate to severe pulmonary edema - Chest xray 08/21/2025: Cardiomegaly with pulmonary venous congestion and edema - Echocardiogram 01/14/2022: EF > 60%, Limited echo windows, mild TR, MR - New echocardiogram has been ordered, pending read - Cardiology: Pending echo, considered R/LHC if inconclusive , discontinue bumex drip - [place] 40 mg IV daily - Per nephrology: Start bumex drip + albumin and D5W 75 cc/hour -- Bumex drip discontinued by cardiology -- D5W has been discontinued due to resolution of hypernatremia - Chest Xray shows worsening, for which lasix 40 mg BID will be initiated #Hypertension - Amlodipine 10 mg NG daily #CAD - Patient will go to right and left heart cath on Friday #Possible pulmonary hypertension Respiratory # Ventilator -intubated (08/21/2025) -On [facility] vent : VCAC Mode RR 24 TV 450ml, PEEP Of 5 and FiO2 of 45% # Acute hypercapnic respiratory failure secondary to pulmonary edema # Acute COPD exacerbation - Methylprednisolone 40 mg IV, discontinued - Ipratropium medneb - Albuterol medneb - Ceftriaxone 1 g IV daily #Influenza A and B - Tamiflu 30 mg BID suspension GI # Peptic ulcer prophylaxis -Pantoprazole 40 mg IV daily # Schuster catheter Nephrology # COLE likely hemodynamically mediated/ VMN #Hyperkalemia, resolved - Per nephrology: trial of forced diuresis to enhance potassium excretion, serial chemistry panels, IV bicarbonate infusion, and avoidance of IV contrast if able, currently without urgent indication for kidney replacement therapy - Bicarbonate drip has been dc'd - Per Cardiology: Zoran . #Acute metabolic acidosis #Hypernatremia, resolved - D5W, discontinued Infectious disease # Influenza A and B Pneumonia - Tamiflu 30 mg BID suspension Hem/onc #Thrombocytopenia - Monitor Endocrine #Type 2 diabetes mellitus - SSI -Accu cheks DVT prophylaxis: SCD PUD prophylaxis: Pantoprazole 40 mg IV daily Lines -L femoral Central line 08/20/2025 -Schuster catheter 08/20/2025 -ET tube: 08/21/2025 Nutrition: Nepro at a rate of 30 Drips during [facility] ventilation Versed 8 Fentanyl 150 Propofol: Discontinued Nitroglycerin: Discontinued Nicardipine drip: Discontinued Bicarbonate drip: Discontinued Critical care time 59 minutes excluding procedure. Code status discussed greater than 20 minutes: Full CODE STATUS. Family at bedside explained about the condition of the patient Plan discussed with Plan discussed with: Daughter, Other (Nurse) My Orders My Orders Orders - SALLY MINOR Procedure Category Date Status Time Abg W/ Co-Ox RT 08/25/25 Logged 04:00 Chest Xray 1 View XY 08/25/25 Resulted 04:00 Dietary Evaluation Review Comments: Nutrition Recommendation: 1) EN Nepro Carbsteady @ 30ml/hr x 24hr (goal) along with Pro-stat 1 pk BID. Water flush 50ml Q6H if allowed, adjust PRN. TF at goal volume along with propofol & Pro-stat provide 1777 kcal (100%), 89 gm protein (83%), and 723 ml free water(including flush). 2) TPN if NPO >7 days 3) Monitor NPO status, lab values, weight trend, and I/O Expected Outcomes/Goals: Intake to meet >75% estimated needs Lab values to improve FU 2-3 days SALLY MINOR RESIDENT Aug 25, 2025 10:19
--- NOTE | 2025-08-25 12:38 | DVHPN2 ---
Progress Note Date Seen: Aug 25, 2025 Medical Necessity Reason Pt with a Central, PICC or Fol: Yes The following are medically ne: Central Line, Schuster Catheter Subjective Review of Systems: Deferred Objective vital signs Vital Sign Date Time Temp Pulse Resp B/P (MAP) Pulse Ox O2 Delivery O2 Flow Rate FiO2 08/25/25 12:00 24 96 Mechanical Ventilator+ 45 45 08/25/25 12:00 54 08/25/25 11:51 97.5 156/65 (95) 207.5 Total Intake and Output 08/24/25 08/24/25 08/25/25 15:00 23:00 07:00 Intake Total 784 ml 996 ml 514 ml Output Total 2500 ml 1250 ml Balance 784 ml -1504 ml -736 ml medications Current Medications Medications Dose Ordered Sig/Adri Route Start Time Stop Time Status Last Admin Dose Admin Albuterol 2.5 mg Q4HPRN PRN NEB 08/20/25 23:15 08/24/25 23:51 2.5 MG Ipratropium [place] 0.5 mg Q4HPRN PRN NEB 08/20/25 23:15 08/24/25 23:51 0.5 MG Furosemide 40 mg DAILY IV 08/21/25 10:00 08/25/25 08:02 40 MG Multivit/Ca Carb/ B Cmplx/FA/Prenat 1 tab DAILY PO 08/21/25 10:00 08/25/25 08:02 1 TAB Ceftriaxone Sodium 50 ml @ 100 mls/hr DAILY@09 IV 08/21/25 09:00 08/25/25 08:02 100 MLS/HR Diagnostic Test (Pha) 1 strip ACHS 08/21/25 07:00 08/25/25 11:30 1 STRIP Insulin Human Regular ACHS SC 08/21/25 07:00 08/24/25 22:00 2 UNITS Dextrose 50 ml UD PRN IV 08/20/25 23:15 Sodium Chloride 10 ml Q8HR IV 08/21/25 06:00 08/25/25 08:03 10 ML Docusate Sodium 100 mg BIDPRN PRN PO 08/20/25 23:15 Acetaminophen 650 mg Q6HP PRN PO 08/20/25 23:15 Nitroglycerin 0.4 mg Q5MINP PRN SL 08/20/25 23:15 Morphine Sulfate 2 mg Q30M PRN IV 08/20/25 23:15 Midazolam HCl 100 ml @ 1 mls/hr Q24H IV 08/21/25 01:45 08/25/25 05:05 8 MLS/HR Pantoprazole Sodium 40 mg DAILY IV 08/22/25 10:00 08/25/25 08:02 40 MG Oseltamivir Phosphate 30 mg DAILY GT 08/21/25 22:00 08/26/25 21:59 08/25/25 08:03 30 MG Enteral Nutritional Formula 1,000 ml 30ML/HR GT 08/22/25 17:15 08/23/25 16:30 1,000 ML Fentanyl Citrate 250 ml @ 2.5 mls/hr Q24H IV 08/22/25 17:15 08/25/25 10:15 15 MLS/HR Propofol 100 ml @ 2.67 mls/hr Q24H IV 08/22/25 17:45 08/22/25 17:47 10.68 MLS/HR Examination: GENERAL:Abnormal, LUNGS:Abnormal, ABDOMEN:Normal, SKIN:Abnormal laboratory and microbiology Laboratory Tests 08/25/25 03:51 Test 08/25/25 03:51 Range/Units Serum Glucose 89 74-106 mg/dL Microbiology Date/Time Source Procedure Growth Status 08/22/25 12:52 Urine - Schuster Port Urine Culture - Final Complete 08/22/25 08:06 Nose MRSA Screen - Final Complete Problem List/Assessment/Plan Problem List/Assessment/Plan Acute kidney injury superimposed Chronic Kidney Disease stage III B secondary hemodynamic mediated, ATN Acute hypoxic respiratory failure, patient intubated on ventilator Community-acquired pneumonia , influenza Diabetes mellitus type 2 Nephrotic syndrome secondary to underlying diabetic nephropathy hypertension Recommendations Kidney function is improving edema appears significantly reduced tube feeding lasix reduced to 40mg IV daily , monitor fluid balances cardiology plans for [facility] friday , elevated risk of contrast induced nephropathy due to reduced GFR. Recommend IVF 250cc bolus 1 hour prior to cath and 100cc/hr for of 0.9%NACL for 5 hours after cath Strict I&Os kidney ultrasound reported within normal limit IV antibiotics Avoid nephrotoxic medications Plan discussed with: Other Dietary Evaluation Review Comments: Nutrition Recommendation: 1) EN Nepro Carbsteady @ 30ml/hr x 24hr (goal) along with Pro-stat 1 pk BID. Water flush 50ml Q6H if allowed, adjust PRN. TF at goal volume along with propofol & Pro-stat provide 1777 kcal (100%), 89 gm protein (83%), and 723 ml free water(including flush). 2) TPN if NPO >7 days 3) Monitor NPO status, lab values, weight trend, and I/O Expected Outcomes/Goals: Intake to meet >75% estimated needs Lab values to improve FU 2-3 days KELLY DIAZ MD Aug 25, 2025 12:38
[2025-08-25] MEDS: FUROSEMIDE 40 MG/4 ML VIAL IV SCH (16:37)
[2025-08-26] VITALS (93 sets, daily range): BP systolic 103–177; BP diastolic 39–71; PULSE 60–76; RESP 0–25; TEMP 94.1–99.1; O2SAT 90–97
[2025-08-26 04:18] LABS: Mean Corpuscular Hemoglobin 18.7 pg (28.0-32.0); Mean Corpuscular Volume 66.1 fL (80.0-100.0); Nucleated Red Blood Cells % 0.3 %
[2025-08-26 04:21] LABS: Hematocrit 41.8 % (36.0-46.0); Hemoglobin 11.8 g/dL (12.2-16.2)
[2025-08-26 04:35] LABS: Anion Gap 13 (5-15); Carbon Dioxide 28 mmol/L (20-31); Chloride 105 mmol/L (98-107); Potassium 3.5 mmol/L (3.5-5.1)
[2025-08-26 04:41] LABS: BUN/Creatinine Ratio 16.8 (10.0-20.0); Calcium 8.2 mg/dL (8.7-10.4); Glucose 103 mg/dL (74-106); Magnesium 1.8 mg/dL (1.6-2.6); Sodium 146 mmol/L (136-145)
[2025-08-26 04:45] LABS: Blood Urea Nitrogen 66 mg/dL (9-23)
--- NOTE | 2025-08-26 04:59 | DVH ---
CHEST RADIOGRAPH Indication: Intubated Technique: Single frontal view of the chest was obtained COMPARISON: XY CHEST XRAY 1 VIEW on DOS: 08/25/25, XY CHEST XRAY 1 VIEW on DOS: 08/24/25, XY CHEST XRAY 1 VIEW on DOS: 08/23/25, XY CHEST XRAY 1 VIEW on DOS: 08/22/25, XY CHEST PORTABLE on DOS: 08/21/25 FINDINGS: Lines and Tubes: Unchanged. Lungs: Stable appearing moderate diffuse increased prominence of the pulmonary vasculature and bilateral pleural effusions. No pneumothorax. Cardiomediastinal contours: Cardiomegaly. Bones: Unremarkable IMPRESSION: 1. Stable appearing moderate pulmonary edema and bilateral pleural effusions. 2. Cardiomegaly. 3. Lines and tubes unchanged.
[2025-08-26 05:21] LABS: Anisocytosis Moderate
[2025-08-26 06:55] LABS: Base Excess 1.2 mmol/L (-2.0-3.0)
--- NOTE | 2025-08-26 14:52 | DVHPNRES ---
Progress Note Date Seen: Aug 26, 2025 Resident Creating Document: SALLY MINOR RESIDENT Medical Necessity Reason Pt with a Central, PICC or Fol: Yes The following are medically ne: Central Line, Schuster Catheter Subjective Review of Systems Ms. Marin is a 75-year-old female with prior medical history of CHF, COPD with home oxygen, gout, anxiety, diabetes mellitus, hyperlipidemia, hypertension, and PAD, who to [facility] with chief complaint of shortness of breath and back and midsternal non-radiating chest pain. At time of this evaluation the patient is intubated and sedated, history was taken from her daughter Susy at bedside and from medical record. Per her daughter, patient has been complaining of progressively worsening shortness of breath for the last 2 weeks associated with general malaise and orthopnea, describing very wet coughing sounds when her mother lays flat. She states that her mother began complaining of worsening shortness of breath associated with non-radiating midsternal chest pain which prompted her to call EMS. Per record, on seen she was saturating 74%, she was placed on CPAP with inspiration increasing to 88% on route to the emergency department. On evaluation in the ED, is afebrile, slightly hypertensive, and tachypneic saturating 81% which she was placed on BiPAP. Initial labs significant for leukocytosis of 11.3, with elevated hematocrit, and thrombocytopenia, Hyperkalemia, creatinine 4.09, BUN 46, and ABG significant for respiratory acidosis, troponins are negative, BNP 2515.41.Patient is influenza A and B positive. Chest x-ray shows moderate to severe pulmonary edema. Patient further deteriorated requiring intubation for respiratory distress. She was started on IV Lasix, IV methylprednisolone, hyperkalemia protocol, bicarbonate drip, and nitroglycerin drip. On my initial evaluation in the ED, the patient is sedated, intubated, and mechanically ventilated, currently not on pressors. Prior Medical history: CHF, COPD, gout, anxiety, type 2 diabetes mellitus, hyperlipidemia, hypertension, PAD, pulmonary hypertension Previous surgical history: Left leg stenting for PAD Allergies: Denies Social history: Daughter refers the patient smokes cigarettes with cessation approximately 20 years ago Home medications: Allopurinol, insulin, gabapentin, simvastatin, tadalafil 08/26/2025: Patient seen in the ICU. She is sedated, intubated, mechanically ventilated, not on pressors. She is afebrile, bradycardic, blood pressure is more in control. Renal function is improving. Chest xray has improved with increased diuresis. She is pending right and left heart cath on Friday. 08/25/2025: Patient seen in the ICU. She is sedated, intubated, mechanically ventilated, not on pressors. She is afebrile, bradycardic, mostly hypertensive. Hemoglobin and platelets are improving. Renal function is improved. Chest xray is showing increased pleural effusion. 08/24/2025: Patient seen in the ICU. She is sedated, intubated, mechanically ventilated, not on pressors. Per nurse, Bonnie, the patient had some bloody secretions suctioned out of ET tube today. She is afebrile, continues to tend toward bradycardia, with improved blood pressure control. Hemoglobin and platelets are trending down. Renal function and output have improved. Given that sodium is corrected, D5W has been corrected. Per Dr. Bahena, the patient will go to L and right heart cath on Friday. We will continue to monitor. 08/23/2025: Patient seen in the ICU. She is sedated, intubated, mechanically ventilated, not on pressors. She is afebrile, tends toward bradycardia, blood pressure is more in control, and saturating adequately on the ventilator. CBC is stbale. Creatinine continues to elevate, however, hyperkalemia has resolved. Patient still has a positive fluid balance for which nephrology has started the patient on Albumin and a bumex drip. Bicarbonate drip has been discontinued. Per cardiology, bumex was to be discontinued and IVF at 100cc/hr have been started. Tube feeds have been restarted. Read of echocardiogram is still pending. 08/22/2025: Patient was seen in ICU. She is sedated, intubated, mechanically ventilated, not on pressors. CBC shows thrombocytopenia, persists with hyperkalemia, kidney function continues to worsen. UA is significant for UTI. She is being followed by nephrology who is currently recommending recommended a kidney ultrasound and hyperkalemia protocol to reduce serum potassium. She was evaluated by her behavioral health specialist, Dr. Bahena, who recommends echocardiogram, if inconclusive possible R/LHC. Tube feeds will be initiated. We will continue to monitor Objective vital signs Vital Sign Date Time Temp Pulse Resp B/P (MAP) Pulse Ox O2 Delivery O2 Flow Rate FiO2 08/26/25 14:18 70 24 144/62 (89) 94 40 08/26/25 14:06 98.1 98.1 08/26/25 13:30 Mechanical Ventilator+ Total Intake and Output 08/25/25 08/25/25 08/26/25 15:00 23:00 07:00 Intake Total 184 ml 434 ml 224 ml Output Total 1800 ml 1450 ml Balance 184 ml -1366 ml -1226 ml medications Current Medications Medications Dose Ordered Sig/Adri Route Start Time Stop Time Status Last Admin Dose Admin Albuterol 2.5 mg Q4HPRN PRN NEB 08/20/25 23:15 08/24/25 23:51 2.5 MG Ipratropium [place] 0.5 mg Q4HPRN PRN NEB 08/20/25 23:15 08/24/25 23:51 0.5 MG Multivit/Ca Carb/ B Cmplx/FA/Prenat 1 tab DAILY PO 08/21/25 10:00 08/26/25 07:35 1 TAB Ceftriaxone Sodium 50 ml @ 100 mls/hr DAILY@09 IV 08/21/25 09:00 08/26/25 07:35 100 MLS/HR Diagnostic Test (Pha) 1 strip ACHS 08/21/25 07:00 08/26/25 11:55 1 STRIP Insulin Human Regular ACHS SC 08/21/25 07:00 08/24/25 22:00 2 UNITS Dextrose 50 ml UD PRN IV 08/20/25 23:15 Sodium Chloride 10 ml Q8HR IV 08/21/25 06:00 08/26/25 07:36 10 ML Docusate Sodium 100 mg BIDPRN PRN PO 08/20/25 23:15 Acetaminophen 650 mg Q6HP PRN PO 08/20/25 23:15 Nitroglycerin 0.4 mg Q5MINP PRN SL 08/20/25 23:15 Morphine Sulfate 2 mg Q30M PRN IV 08/20/25 23:15 Midazolam HCl 100 ml @ 1 mls/hr Q24H IV 08/21/25 01:45 08/26/25 05:47 8 MLS/HR Pantoprazole Sodium 40 mg DAILY IV 08/22/25 10:00 08/26/25 07:35 40 MG Oseltamivir Phosphate 30 mg DAILY GT 08/21/25 22:00 08/26/25 21:59 08/26/25 07:35 30 MG Enteral Nutritional Formula 1,000 ml 30ML/HR GT 08/22/25 17:15 08/25/25 22:22 1,000 ML Fentanyl Citrate 250 ml @ 2.5 mls/hr Q24H IV 08/22/25 17:15 08/26/25 01:15 15 MLS/HR Propofol 100 ml @ 2.67 mls/hr Q24H IV 08/22/25 17:45 08/22/25 17:47 10.68 MLS/HR Amlodipine Besylate 10 mg DAILY PO 08/25/25 12:45 08/26/25 07:36 10 MG Furosemide 40 mg BIDD IV 08/25/25 18:00 08/26/25 05:47 40 MG Examination General: Patient is intubated, sedated, mechanically ventilated, RASS -3, is reactive to painful stimulus HEENT: Normocephalic, atraumatic, pin point pupils sluggish, no EOM, pink conjunctiva, pink moist mucous membrane, ET tube in place Respiratory/pulmonary: Bilateral chest expansion, improved breath sounds bilaterally Cardiovascular: Normal RRR Abdomen: Obese, Abdomen nondistended, normal bowel sounds, soft, no grimacing is observed on palpation, no palpable masses. Extremities: No deformities, edema of bilateral hands, trace bilateral pitting edema, skin of bilateral lower extremities are extremely dry, pulses 2+ bilateral lower extremities, left femoral central venous catheter present Skin: No rashes or pruritus, there is no sacral edema present at this time. Neurological: cough and gag reflex present laboratory and microbiology Laboratory Tests 08/26/25 03:30 Test 08/26/25 03:30 Range/Units Serum Glucose 103 74-106 mg/dL Microbiology Date/Time Source Procedure Growth Status 08/22/25 12:52 Urine - Schuster Port Urine Culture - Final Complete 08/22/25 08:06 Nose MRSA Screen - Final Complete Problem List/Assessment/Plan Problem List/Assessment/Plan Neurology # Sedated - Versed 8 - Propofol: Discontinued - Fentanyl 150 Cardiovascular # Acute on chronic HFrEF # Pulmonary Edema - BNP 2515.41 --> 370 - Chest xray 08/20/2025: Moderate to severe pulmonary edema - Chest xray 08/21/2025: Cardiomegaly with pulmonary venous congestion and edema - Echocardiogram 01/14/2022: EF > 60%, Limited echo windows, mild TR, MR - New echocardiogram has been ordered, pending read - Cardiology: Pending echo, considered R/LHC if inconclusive , discontinue bumex drip - Laxis 40 mg IV daily - Per nephrology: Start bumex drip + albumin and D5W 75 cc/hour -- Bumex drip discontinued by cardiology -- D5W has been discontinued due to resolution of hypernatremia - Chest Xray shows worsening, for which lasix 40 mg BID will be initiated #Hypertension - Amlodipine 10 mg NG daily #CAD - Patient will go to right and left heart cath on Friday #Possible pulmonary hypertension Respiratory # Ventilator -intubated (08/21/2025) -On [facility] vent : VCAC Mode RR 24 TV 450ml, PEEP Of 5 and FiO2 of 40% # Acute hypercapnic respiratory failure secondary to pulmonary edema # Acute COPD exacerbation - Methylprednisolone 40 mg IV, discontinued - Ipratropium medneb - Albuterol medneb - Ceftriaxone 1 g IV daily #Influenza A and B - Tamiflu 30 mg BID suspension GI # Peptic ulcer prophylaxis -Pantoprazole 40 mg IV daily # Schuster catheter Nephrology # COLE likely hemodynamically mediated/ VMN #Hyperkalemia, resolved - Per nephrology: trial of forced diuresis to enhance potassium excretion, serial chemistry panels, IV bicarbonate infusion, and avoidance of IV contrast if able, currently without urgent indication for kidney replacement therapy - Bicarbonate drip has been dc'd - Per Cardiology: [place] . #Acute metabolic acidosis #Hypernatremia, resolved - D5W, discontinued Infectious disease # Influenza A and B Pneumonia - Tamiflu 30 mg BID suspension Hem/onc #Thrombocytopenia - Monitor Endocrine #Type 2 diabetes mellitus - SSI -Accu cheks DVT prophylaxis: SCD PUD prophylaxis: Pantoprazole 40 mg IV daily Lines -L femoral Central line 08/20/2025 -Schuster catheter 08/20/2025 -ET tube: 08/21/2025 Nutrition: Nepro at a rate of 30 Drips during [facility] ventilation Versed 8 Fentanyl 150 Propofol: Discontinued Nitroglycerin: Discontinued Nicardipine drip: Discontinued Bicarbonate drip: Discontinued Critical care time 51 minutes excluding procedure. Code status discussed greater than 20 minutes: Full CODE STATUS. Family at bedside explained about the condition of the patient Plan discussed with Plan discussed with: Daughter, Other (Nurse) Dietary Evaluation Review Comments: Nutrition Recommendation: 1) EN Nepro Carbsteady @ 30ml/hr x 24hr (goal) along with Pro-stat 1 pk BID. Water flush 50ml Q6H if allowed, adjust PRN. TF at goal volume along with propofol & Pro-stat provide 1777 kcal (100%), 89 gm protein (83%), and 723 ml free water(including flush). 2) TPN if NPO >7 days 3) Monitor NPO status, lab values, weight trend, and I/O Expected Outcomes/Goals: Intake to meet >75% estimated needs Lab values to improve FU 2-3 days SALLY MINOR RESIDENT Aug 26, 2025 14:52
--- NOTE | 2025-08-26 16:48 | DVHPN2 ---
Progress Note Date Seen: Aug 26, 2025 Medical Necessity Reason Pt with a Central, PICC or Fol: Yes The following are medically ne: Central Line, Schuster Catheter Subjective Review of Systems: Deferred Objective vital signs Vital Sign Date Time Temp Pulse Resp B/P (MAP) Pulse Ox O2 Delivery O2 Flow Rate FiO2 08/26/25 16:36 66 24 177/71 (106) 93 40 08/26/25 15:31 Mechanical Ventilator+ 08/26/25 15:21 98.6 209.5 Total Intake and Output 08/25/25 08/25/25 08/26/25 15:00 23:00 07:00 Intake Total 184 ml 434 ml 224 ml Output Total 1800 ml 1450 ml Balance 184 ml -1366 ml -1226 ml medications Current Medications Medications Dose Ordered Sig/Adri Route Start Time Stop Time Status Last Admin Dose Admin Albuterol 2.5 mg Q4HPRN PRN NEB 08/20/25 23:15 08/24/25 23:51 2.5 MG Ipratropium [place] 0.5 mg Q4HPRN PRN NEB 08/20/25 23:15 08/24/25 23:51 0.5 MG Multivit/Ca Carb/ B Cmplx/FA/Prenat 1 tab DAILY PO 08/21/25 10:00 08/26/25 07:35 1 TAB Ceftriaxone Sodium 50 ml @ 100 mls/hr DAILY@09 IV 08/21/25 09:00 08/26/25 07:35 100 MLS/HR Diagnostic Test (Pha) 1 strip ACHS 08/21/25 07:00 08/26/25 11:55 1 STRIP Insulin Human Regular ACHS SC 08/21/25 07:00 08/24/25 22:00 2 UNITS Dextrose 50 ml UD PRN IV 08/20/25 23:15 Sodium Chloride 10 ml Q8HR IV 08/21/25 06:00 08/26/25 07:36 10 ML Docusate Sodium 100 mg BIDPRN PRN PO 08/20/25 23:15 Acetaminophen 650 mg Q6HP PRN PO 08/20/25 23:15 Nitroglycerin 0.4 mg Q5MINP PRN SL 08/20/25 23:15 Morphine Sulfate 2 mg Q30M PRN IV 08/20/25 23:15 Midazolam HCl 100 ml @ 1 mls/hr Q24H IV 08/21/25 01:45 08/26/25 05:47 8 MLS/HR Pantoprazole Sodium 40 mg DAILY IV 08/22/25 10:00 08/26/25 07:35 40 MG Oseltamivir Phosphate 30 mg DAILY GT 08/21/25 22:00 08/26/25 21:59 08/26/25 07:35 30 MG Enteral Nutritional Formula 1,000 ml 30ML/HR GT 08/22/25 17:15 08/25/25 22:22 1,000 ML Fentanyl Citrate 250 ml @ 2.5 mls/hr Q24H IV 08/22/25 17:15 08/26/25 01:15 15 MLS/HR Propofol 100 ml @ 2.67 mls/hr Q24H IV 08/22/25 17:45 08/22/25 17:47 10.68 MLS/HR Amlodipine Besylate 10 mg DAILY PO 08/25/25 12:45 08/26/25 07:36 10 MG Furosemide 40 mg BIDD IV 08/25/25 18:00 08/26/25 05:47 40 MG Examination: GENERAL:Abnormal, LUNGS:Abnormal, CVS:Normal, SKIN:Abnormal laboratory and microbiology Laboratory Tests 08/26/25 03:30 Test 08/26/25 03:30 Range/Units Serum Glucose 103 74-106 mg/dL Microbiology Date/Time Source Procedure Growth Status 08/22/25 12:52 Urine - Schuster Port Urine Culture - Final Complete 08/22/25 08:06 Nose MRSA Screen - Final Complete Problem List/Assessment/Plan Problem List/Assessment/Plan Acute kidney injury superimposed Chronic Kidney Disease stage III B secondary hemodynamic mediated, ATN Acute hypoxic respiratory failure, patient intubated on ventilator Community-acquired pneumonia , influenza Diabetes mellitus type 2 Nephrotic syndrome secondary to underlying diabetic nephropathy hypertension Recommendations Kidney function is improving htn- norvasc, add hydralazine for BP control tube feeding lasix reduced to 40mg IV daily , monitor fluid balances cardiology plans for [facility] friday , elevated risk of contrast induced nephropathy due to reduced GFR. Recommend IVF 250cc bolus 1 hour prior to cath and 100cc/hr for of 0.9%NACL for 5 hours after cath Strict I&Os kidney ultrasound reported within normal limit IV antibiotics Avoid nephrotoxic medications Plan discussed with: Other Dietary Evaluation Review Comments: Nutrition Recommendation: 1) EN Nepro Carbsteady @ 30ml/hr x 24hr (goal) along with Pro-stat 1 pk BID. Water flush 50ml Q6H if allowed, adjust PRN. TF at goal volume along with propofol & Pro-stat provide 1777 kcal (100%), 89 gm protein (83%), and 723 ml free water(including flush). 2) TPN if NPO >7 days 3) Monitor NPO status, lab values, weight trend, and I/O Expected Outcomes/Goals: Intake to meet >75% estimated needs Lab values to improve FU 2-3 days KELLY DIAZ MD Aug 26, 2025 16:48
[2025-08-27] VITALS (110 sets, daily range): BP systolic 88–171; BP diastolic 40–85; PULSE 58–101; RESP 0–29; TEMP 97.9–100; O2SAT 89–100
[2025-08-27 04:19] LABS: Hematocrit 44.8 % (36.0-46.0); Hemoglobin 12.7 g/dL (12.2-16.2); Mean Corpuscular Hemoglobin 18.7 pg (28.0-32.0); Mean Corpuscular Volume 66.1 fL (80.0-100.0); Nucleated Red Blood Cells % 0.2 %
[2025-08-27 04:26] LABS: Chloride 106 mmol/L (98-107); Potassium 3.5 mmol/L (3.5-5.1)
[2025-08-27 04:27] LABS: Anion Gap 10 (5-15); Carbon Dioxide 29 mmol/L (20-31)
[2025-08-27 04:32] LABS: BUN/Creatinine Ratio 16.1 (10.0-20.0); Blood Urea Nitrogen 65 mg/dL (9-23); Calcium 8.4 mg/dL (8.7-10.4); Glucose 115 mg/dL (74-106); Sodium 145 mmol/L (136-145)
[2025-08-27 04:33] LABS: Magnesium 1.8 mg/dL (1.6-2.6)
[2025-08-27 05:16] LABS: Anisocytosis Moderate
--- NOTE | 2025-08-27 05:40 | DVH ---
CHEST RADIOGRAPH Indication: Eval pulmonary edema Technique: Single frontal view of the chest was obtained COMPARISON: XY CHEST XRAY 1 VIEW on DOS: 08/26/25, XY CHEST XRAY 1 VIEW on DOS: 08/25/25, XY CHEST XRAY 1 VIEW on DOS: 08/24/25, XY CHEST XRAY 1 VIEW on DOS: 08/23/25, XY CHEST XRAY 1 VIEW on DOS: 08/22/25 FINDINGS: Lines and Tubes: Endotracheal tube tip projects approximately 4.1 cm above the level of the delfino. Enteric catheter unchanged. Lungs: Grossly Stable appearing right middle and lower lung zone pulmonary airspace disease and small bilateral pleural effusions as well as diffuse increased prominence of the pulmonary vasculature. No pneumothorax. Cardiomediastinal contours: Cardiomegaly. Bones: Unremarkable IMPRESSION: 1. Stable appearing pulmonary edema and right middle and lower lung zone pulmonary airspace disease. 2. Cardiomegaly and diffuse Increased prominence of the pulmonary vasculature. 3. Lines and tubes as above.
[2025-08-27] MEDS: MAGNESIUM SULFATE 1GM/100ML 100 ML IV ONE (06:49)
[2025-08-27] MEDS: POTASSIUM EFFERVESENT TAB 25 MEQ PO ONE (06:50)
[2025-08-27 07:04] LABS: Base Excess 2.8 mmol/L (-2.0-3.0)
--- NOTE | 2025-08-27 08:37 | DVHPNRES ---
Progress Note Date Seen: Aug 27, 2025 Resident Creating Document: JILLIAN SMITH RESIDENT Medical Necessity Reason Pt with a Central, PICC or Fol: Yes The following are medically ne: Central Line, Schuster Catheter Subjective Review of Systems Ms. Marin is a 75-year-old female with prior medical history of CHF, COPD with home oxygen, gout, anxiety, diabetes mellitus, hyperlipidemia, hypertension, and PAD, who to [facility] with chief complaint of shortness of breath and back and midsternal non-radiating chest pain. At time of this evaluation the patient is intubated and sedated, history was taken from her daughter Susy at bedside and from medical record. Per her daughter, patient has been complaining of progressively worsening shortness of breath for the last 2 weeks associated with general malaise and orthopnea, describing very wet coughing sounds when her mother lays flat. She states that her mother began complaining of worsening shortness of breath associated with non-radiating midsternal chest pain which prompted her to call EMS. Per record, on seen she was saturating 74%, she was placed on CPAP with inspiration increasing to 88% on route to the emergency department. On evaluation in the ED, is afebrile, slightly hypertensive, and tachypneic saturating 81% which she was placed on BiPAP. Initial labs significant for leukocytosis of 11.3, with elevated hematocrit, and thrombocytopenia, Hyperkalemia, creatinine 4.09, BUN 46, and ABG significant for respiratory acidosis, troponins are negative, BNP 2515.41.Patient is influenza A and B positive. Chest x-ray shows moderate to severe pulmonary edema. Patient further deteriorated requiring intubation for respiratory distress. She was started on IV Lasix, IV methylprednisolone, hyperkalemia protocol, bicarbonate drip, and nitroglycerin drip. On my initial evaluation in the ED, the patient is sedated, intubated, and mechanically ventilated, currently not on pressors. Prior Medical history: CHF, COPD, gout, anxiety, type 2 diabetes mellitus, hyperlipidemia, hypertension, PAD, pulmonary hypertension Previous surgical history: Left leg stenting for PAD Allergies: Denies Social history: Daughter refers the patient smokes cigarettes with cessation approximately 20 years ago Home medications: Allopurinol, insulin, gabapentin, simvastatin, tadalafil 08/26/2025: Patient seen in the ICU. She is sedated, intubated, mechanically ventilated, not on pressors. She is afebrile, bradycardic, blood pressure is more in control. Renal function is improving. Chest xray has improved with increased diuresis. She is pending right and left heart cath on Friday. 08/25/2025: Patient seen in the ICU. She is sedated, intubated, mechanically ventilated, not on pressors. She is afebrile, bradycardic, mostly hypertensive. Hemoglobin and platelets are improving. Renal function is improved. Chest xray is showing increased pleural effusion. 08/24/2025: Patient seen in the ICU. She is sedated, intubated, mechanically ventilated, not on pressors. Per nurse, Bonnie, the patient had some bloody secretions suctioned out of ET tube today. She is afebrile, continues to tend toward bradycardia, with improved blood pressure control. Hemoglobin and platelets are trending down. Renal function and output have improved. Given that sodium is corrected, D5W has been corrected. Per Dr. Bahena, the patient will go to L and right heart cath on Friday. We will continue to monitor. 08/23/2025: Patient seen in the ICU. She is sedated, intubated, mechanically ventilated, not on pressors. She is afebrile, tends toward bradycardia, blood pressure is more in control, and saturating adequately on the ventilator. CBC is stbale. Creatinine continues to elevate, however, hyperkalemia has resolved. Patient still has a positive fluid balance for which nephrology has started the patient on Albumin and a bumex drip. Bicarbonate drip has been discontinued. Per cardiology, bumex was to be discontinued and IVF at 100cc/hr have been started. Tube feeds have been restarted. Read of echocardiogram is still pending. 08/26/2025: Patient was seen in ICU. She is sedated, intubated, mechanically ventilated, not on pressors. CBC shows thrombocytopenia, persists with hyperkalemia, kidney function continues to worsen. UA is significant for UTI. She is being followed by nephrology who is currently recommending recommended a kidney ultrasound and hyperkalemia protocol to reduce serum potassium. She was evaluated by her cadmium burner, Dr. Bahena, who recommends echocardiogram, if inconclusive possible R/LHC. Tube feeds will be initiated. We will continue to monitor 08/27/25: Patient is seen and examined at bedside, , intubated, mechanically ventilated, not on pressors. She was evaluated by her cadmium burner, Dr. Bahena, who recommends echocardiogram, if inconclusive possible R/LHC. Tube feeds will be initiated. We will continue to monitor. Objective vital signs Vital Sign Date Time Temp Pulse Resp B/P (MAP) Pulse Ox O2 Delivery O2 Flow Rate FiO2 08/27/25 08:21 98.1 65 24 118/50 (72) 95 208.6 08/27/25 08:00 40 08/27/25 08:00 Mechanical Ventilator+ Total Intake and Output 08/26/25 08/26/25 08/27/25 15:00 23:00 07:00 Intake Total 184 ml 458 ml 526 ml Output Total 1150 ml 1100 ml Balance 184 ml -692 ml -574 ml medications Current Medications Medications Dose Ordered Sig/Adri Route Start Time Stop Time Status Last Admin Dose Admin Albuterol 2.5 mg Q4HPRN PRN NEB 08/20/25 23:15 08/24/25 23:51 2.5 MG Ipratropium [place] 0.5 mg Q4HPRN PRN NEB 08/20/25 23:15 08/24/25 23:51 0.5 MG Multivit/Ca Carb/ B Cmplx/FA/Prenat 1 tab DAILY PO 08/21/25 10:00 08/27/25 07:58 1 TAB Ceftriaxone Sodium 50 ml @ 100 mls/hr DAILY@09 IV 08/21/25 09:00 08/27/25 07:58 100 MLS/HR Diagnostic Test (Pha) 1 strip ACHS 08/21/25 07:00 08/27/25 05:51 1 STRIP Insulin Human Regular ACHS SC 08/21/25 07:00 08/27/25 06:12 2 UNITS Dextrose 50 ml UD PRN IV 08/20/25 23:15 Sodium Chloride 10 ml Q8HR IV 08/21/25 06:00 08/27/25 07:58 10 ML Docusate Sodium 100 mg BIDPRN PRN PO 08/20/25 23:15 Acetaminophen 650 mg Q6HP PRN PO 08/20/25 23:15 Nitroglycerin 0.4 mg Q5MINP PRN SL 08/20/25 23:15 Morphine Sulfate 2 mg Q30M PRN IV 08/20/25 23:15 Midazolam HCl 100 ml @ 1 mls/hr Q24H IV 08/21/25 01:45 08/27/25 06:49 7 MLS/HR Pantoprazole Sodium 40 mg DAILY IV 08/22/25 10:00 08/27/25 07:58 40 MG Enteral Nutritional Formula 1,000 ml 30ML/HR GT 08/22/25 17:15 08/27/25 06:11 1,000 ML Fentanyl Citrate 250 ml @ 2.5 mls/hr Q24H IV 08/22/25 17:15 08/26/25 16:56 15 MLS/HR Propofol 100 ml @ 2.67 mls/hr Q24H IV 08/22/25 17:45 08/22/25 17:47 10.68 MLS/HR Amlodipine Besylate 10 mg DAILY PO 08/25/25 12:45 08/27/25 07:58 10 MG Furosemide 40 mg BIDD IV 08/25/25 18:00 08/27/25 05:51 40 MG Hydralazine HCl 10 mg Q8HR PO 08/26/25 22:00 08/27/25 05:52 10 MG Examination General: Patient is intubated, sedated, mechanically ventilated, RASS -3, is reactive to painful stimulus HEENT: Normocephalic, atraumatic, pin point pupils sluggish, no EOM, pink conjunctiva, pink moist mucous membrane, ET tube in place Respiratory/pulmonary: Bilateral chest expansion, improved breath sounds bilaterally Cardiovascular: Normal RRR Abdomen: Obese, Abdomen nondistended, normal bowel sounds, soft, no grimacing is observed on palpation, no palpable masses. Extremities: No deformities, edema of bilateral hands, trace bilateral pitting edema, skin of bilateral lower extremities are extremely dry, pulses 2+ bilateral lower extremities, left femoral central venous catheter present Skin: No rashes or pruritus, there is no sacral edema present at this time. Neurological: cough and gag reflex present. laboratory and microbiology Laboratory Tests 08/27/25 03:34 Test 08/27/25 03:34 Range/Units Serum Glucose 115 H 74-106 mg/dL Microbiology Date/Time Source Procedure Growth Status 08/22/25 12:52 Urine - Schuster Port Urine Culture - Final Complete 08/22/25 08:06 Nose MRSA Screen - Final Complete Problem List/Assessment/Plan Problem List/Assessment/Plan Neurology # Sedated - Versed 8 - Propofol: Discontinued - Fentanyl 150 Cardiovascular # Acute on chronic HFrEF # Pulmonary Edema - BNP 2515.41 --> 370 - Chest xray 08/20/2025: Moderate to severe pulmonary edema - Chest xray 08/21/2025: Cardiomegaly with pulmonary venous congestion and edema - Echocardiogram 01/14/2022: EF > 60%, Limited echo windows, mild TR, MR - New echocardiogram has been ordered, pending read - Cardiology: Pending echo, considered R/LHC if inconclusive , discontinue bumex drip - Laxis 40 mg IV daily - Per nephrology: Start bumex drip + albumin and D5W 75 cc/hour -- Bumex drip discontinued by cardiology -- D5W has been discontinued due to resolution of hypernatremia - Chest Xray shows worsening, for which lasix 40 mg BID will be initiated #Hypertension - Amlodipine 10 mg NG daily #CAD - Patient will go to right and left heart cath on Friday #Possible pulmonary hypertension Respiratory # Ventilator -intubated (08/21/2025) -On [facility] vent : VCAC Mode RR 24 TV 450ml, PEEP Of 5 and FiO2 of 40% # Acute hypercapnic respiratory failure secondary to pulmonary edema # Acute COPD exacerbation - Methylprednisolone 40 mg IV, discontinued - Ipratropium medneb - Albuterol medneb - Ceftriaxone 1 g IV daily #Influenza A and B - Tamiflu 30 mg BID suspension GI # Peptic ulcer prophylaxis -Pantoprazole 40 mg IV daily # Schuster catheter Nephrology # COLE likely hemodynamically mediated/ VMN #Hyperkalemia, resolved - Per nephrology: trial of forced diuresis to enhance potassium excretion, serial chemistry panels, IV bicarbonate infusion, and avoidance of IV contrast if able, currently without urgent indication for kidney replacement therapy - Bicarbonate drip has been dc'd - Per Cardiology: Zoran . #Acute metabolic acidosis #Hypernatremia, resolved - D5W, discontinued Infectious disease # Influenza A and B Pneumonia - Tamiflu 30 mg BID suspension Hem/onc #Thrombocytopenia - Monitor Endocrine #Type 2 diabetes mellitus - SSI -Accu cheks DVT prophylaxis: SCD PUD prophylaxis: Pantoprazole 40 mg IV daily Lines -L femoral Central line 08/20/2025 -Schuster catheter 08/20/2025 -ET tube: 08/21/2025 Nutrition: Nepro at a rate of 30 Drips [facility] Versed 8 Fentanyl 150 Propofol: Discontinued Nitroglycerin: Discontinued Nicardipine drip: Discontinued Bicarbonate drip: Discontinued Critical care time 51 minutes excluding procedure. Code status discussed greater than 20 minutes: Full CODE STATUS. Family at bedside explained about the condition of the patient Plan discussed with Plan discussed with: Other (RN) Dietary Evaluation Review Comments: Nutrition Recommendation: 1) EN Nepro Carbsteady @ 30ml/hr x 24hr (goal) along with Pro-stat 1 pk BID. Water flush 50ml Q6H if allowed, adjust PRN. TF at goal volume along with propofol & Pro-stat provide 1777 kcal (100%), 89 gm protein (83%), and 723 ml free water(including flush). 2) TPN if NPO >7 days 3) Monitor NPO status, lab values, weight trend, and I/O Expected Outcomes/Goals: Intake to meet >75% estimated needs Lab values to improve FU 2-3 days JILLIAN SMITH RESIDENT Aug 27, 2025 08:37
--- NOTE | 2025-08-27 12:28 | DVHPN2 ---
Progress Note Date Seen: Aug 27, 2025 Medical Necessity Reason Pt with a Central, PICC or Fol: Yes The following are medically ne: Central Line, Schuster Catheter Objective vital signs Vital Sign Date Time Temp Pulse Resp B/P (MAP) Pulse Ox O2 Delivery O2 Flow Rate FiO2 08/27/25 12:06 98.8 69 22 123/58 (79) 94 209.8 08/27/25 12:00 40 08/27/25 12:00 Mechanical Ventilator+ Total Intake and Output 08/26/25 08/26/25 08/27/25 15:00 23:00 07:00 Intake Total 184 ml 458 ml 526 ml Output Total 1150 ml 1100 ml Balance 184 ml -692 ml -574 ml medications Current Medications Medications Dose Ordered Sig/Adri Route Start Time Stop Time Status Last Admin Dose Admin Albuterol 2.5 mg Q4HPRN PRN NEB 08/20/25 23:15 08/24/25 23:51 2.5 MG Ipratropium [place] 0.5 mg Q4HPRN PRN NEB 08/20/25 23:15 08/24/25 23:51 0.5 MG Multivit/Ca Carb/ B Cmplx/FA/Prenat 1 tab DAILY PO 08/21/25 10:00 08/27/25 07:58 1 TAB Ceftriaxone Sodium 50 ml @ 100 mls/hr DAILY@09 IV 08/21/25 09:00 08/27/25 07:58 100 MLS/HR Diagnostic Test (Pha) 1 strip ACHS 08/21/25 07:00 08/27/25 10:52 1 STRIP Insulin Human Regular ACHS SC 08/21/25 07:00 08/27/25 06:12 2 UNITS Dextrose 50 ml UD PRN IV 08/20/25 23:15 Sodium Chloride 10 ml Q8HR IV 08/21/25 06:00 08/27/25 07:58 10 ML Docusate Sodium 100 mg BIDPRN PRN PO 08/20/25 23:15 Acetaminophen 650 mg Q6HP PRN PO 08/20/25 23:15 Nitroglycerin 0.4 mg Q5MINP PRN SL 08/20/25 23:15 Morphine Sulfate 2 mg Q30M PRN IV 08/20/25 23:15 Midazolam HCl 100 ml @ 1 mls/hr Q24H IV 08/21/25 01:45 08/27/25 06:49 7 MLS/HR Pantoprazole Sodium 40 mg DAILY IV 08/22/25 10:00 08/27/25 07:58 40 MG Enteral Nutritional Formula 1,000 ml 30ML/HR GT 08/22/25 17:15 08/27/25 06:11 1,000 ML Fentanyl Citrate 250 ml @ 2.5 mls/hr Q24H IV 08/22/25 17:15 08/27/25 09:04 15 MLS/HR Propofol 100 ml @ 2.67 mls/hr Q24H IV 08/22/25 17:45 08/22/25 17:47 10.68 MLS/HR Amlodipine Besylate 10 mg DAILY PO 08/25/25 12:45 08/27/25 07:58 10 MG Furosemide 40 mg BIDD IV 08/25/25 18:00 08/27/25 05:51 40 MG Hydralazine HCl 10 mg Q8HR PO 08/26/25 22:00 08/27/25 05:52 10 MG Examination: GENERAL:Abnormal, LUNGS:Abnormal, ABDOMEN:Normal, SKIN:Abnormal laboratory and microbiology Laboratory Tests 08/27/25 03:34 Test 08/27/25 03:34 Range/Units Serum Glucose 115 H 74-106 mg/dL Microbiology Date/Time Source Procedure Growth Status 08/22/25 12:52 Urine - Schuster Port Urine Culture - Final Complete 08/22/25 08:06 Nose MRSA Screen - Final Complete Problem List/Assessment/Plan Problem List/Assessment/Plan Acute kidney injury superimposed Chronic Kidney Disease stage III B secondary hemodynamic mediated, ATN Acute hypoxic respiratory failure, patient intubated on ventilator Community-acquired pneumonia , influenza Diabetes mellitus type 2 Nephrotic syndrome secondary to underlying diabetic nephropathy hypertension Recommendations Kidney function stable htn- norvasc, continue hydralazine for BP control tube feeding lasix 40mg IV daily , monitor fluid balances cardiology plans for [facility] friday , elevated risk of contrast induced nephropathy due to reduced GFR. Recommend IVF 250cc bolus 1 hour prior to cath and 100cc/hr for of 0.9%NACL for 5 hours after cath Strict I&Os kidney ultrasound reported within normal limit IV antibiotics Avoid nephrotoxic medications Plan discussed with: Other My Orders My Orders Orders - KELLY DIAZ MD Procedure Category Date Status Time Hydralazine Hcl PHA 08/26/25 In Process Tablet (Apresoline 22:00 Basic Metabolic Panel LAB 08/28/25 Verified 04:00 Dietary Evaluation Review Comments: Nutrition Recommendation: 1) EN Nepro Carbsteady @ 30ml/hr x 24hr (goal) along with Pro-stat 1 pk BID. Water flush 50ml Q6H if allowed, adjust PRN. TF at goal volume along with propofol & Pro-stat provide 1777 kcal (100%), 89 gm protein (83%), and 723 ml free water(including flush). 2) TPN if NPO >7 days 3) Monitor NPO status, lab values, weight trend, and I/O Expected Outcomes/Goals: Intake to meet >75% estimated needs Lab values to improve FU 2-3 days KELLY DIAZ MD Aug 27, 2025 12:28
[2025-08-28] VITALS (106 sets, daily range): BP systolic 94–188; BP diastolic 43–86; PULSE 63–92; RESP 0–25; TEMP 93–99; O2SAT 92–98
[2025-08-28 04:36] LABS: Hematocrit 43.3 % (36.0-46.0); Mean Corpuscular Hemoglobin 18.8 pg (28.0-32.0); Mean Corpuscular Volume 65.9 fL (80.0-100.0)
[2025-08-28 04:39] LABS: Hemoglobin 12.3 g/dL (12.2-16.2); Nucleated Red Blood Cells % 0.0 %
[2025-08-28 04:51] LABS: Alkaline Phosphatase 76 U/L (46-116); Anion Gap 12 (5-15); BUN/Creatinine Ratio 14.8 (10.0-20.0); Carbon Dioxide 28 mmol/L (20-31); Chloride 105 mmol/L (98-107); Glucose 103 mg/dL (74-106); Potassium 3.7 mmol/L (3.5-5.1); Sodium 145 mmol/L (136-145)
[2025-08-28 04:52] LABS: Bilirubin, Total 0.5 mg/dL (0.2-1.0)
[2025-08-28 05:00] LABS: Alanine Aminotransferase < 9 U/L (7-40); Albumin 3.0 g/dL (3.2-4.8); Blood Urea Nitrogen 63 mg/dL (9-23); Calcium 8.6 mg/dL (8.7-10.4); Total Protein 5.5 g/dL (5.7-8.2)
[2025-08-28 05:53] LABS: Anisocytosis Moderate
[2025-08-28 07:54] LABS: Base Excess -1.9 mmol/L (-2.0-3.0)
--- NOTE | 2025-08-28 08:09 | DVH ---
CHEST RADIOGRAPH Indication: intubated Technique: Single frontal view of the chest was obtained COMPARISON: XY CHEST XRAY 1 VIEW on DOS: 08/27/25, XY CHEST XRAY 1 VIEW on DOS: 08/26/25, XY CHEST XRAY 1 VIEW on DOS: 08/25/25, XY CHEST XRAY 1 VIEW on DOS: 08/24/25, XY CHEST XRAY 1 VIEW on DOS: 08/23/25 FINDINGS: Lines and Tubes: Endotracheal tube and enteric catheter in satisfactory position. Lungs: Unchanged multifocal airspace disease. Pleura: No effusion.No pneumothorax. Cardiomediastinal contours: Unremarkable Bones: Unremarkable IMPRESSION: Lines and tubes in satisfactory position. No significant interval change.
--- NOTE | 2025-08-28 09:08 | DVHPN2 ---
Progress Note - Dictate Date Seen: Aug 26, 2025 Medical Necessity Reason Pt with a Central, PICC or Fol: Yes The following are medically ne: Central Line, Schuster Catheter Subjective PT WELL KNOWN TO ME ORGANIC HEART DISEASE CAD HFrEF HTN 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 HYPERKALEMIA COPD HYPERLIPIDEMIA SIGN SX COMPLEX OF NOW WITH SOB CHEST PAIN RENAL FAILURE HYPERKALEMIA RESP FAILURE REQUIRING INTUBATION vital signs Vital Sign Date Time Temp Pulse Resp B/P (MAP) Pulse Ox O2 Delivery O2 Flow Rate FiO2 08/28/25 08:18 74 24 131/56 (81) 94 45 08/28/25 08:00 Mechanical Ventilator+ 08/28/25 06:30 98.6 209.5 Total Intake and Output 08/27/25 08/27/25 08/28/25 15:00 23:00 07:00 Intake Total 176 ml 505.5 ml 456.0 ml Output Total 950 ml 700 ml Balance 176 ml -444.5 ml -244.0 ml medications Current Medications Medications Dose Ordered Sig/Adri Route Start Time Stop Time Status Last Admin Dose Admin Albuterol 2.5 mg Q4HPRN PRN NEB 08/20/25 23:15 08/27/25 22:15 2.5 MG Ipratropium [place] 0.5 mg Q4HPRN PRN NEB 08/20/25 23:15 08/27/25 22:15 0.5 MG Multivit/Ca Carb/ B Cmplx/FA/Prenat 1 tab DAILY PO 08/21/25 10:00 08/27/25 07:58 1 TAB Ceftriaxone Sodium 50 ml @ 100 mls/hr DAILY@09 IV 08/21/25 09:00 08/28/25 08:34 100 MLS/HR Diagnostic Test (Pha) 1 strip ACHS 08/21/25 07:00 08/28/25 05:40 1 STRIP Insulin Human Regular ACHS SC 08/21/25 07:00 08/27/25 06:12 2 UNITS Dextrose 50 ml UD PRN IV 08/20/25 23:15 Sodium Chloride 10 ml Q8HR IV 08/21/25 06:00 08/28/25 05:39 10 ML Docusate Sodium 100 mg BIDPRN PRN PO 08/20/25 23:15 Acetaminophen 650 mg Q6HP PRN PO 08/20/25 23:15 Nitroglycerin 0.4 mg Q5MINP PRN SL 08/20/25 23:15 Morphine Sulfate 2 mg Q30M PRN IV 08/20/25 23:15 Midazolam HCl 100 ml @ 1 mls/hr Q24H IV 08/21/25 01:45 08/28/25 07:31 2 MLS/HR Pantoprazole Sodium 40 mg DAILY IV 08/22/25 10:00 08/27/25 07:58 40 MG Enteral Nutritional Formula 1,000 ml 30ML/HR GT 08/22/25 17:15 08/27/25 06:11 1,000 ML Fentanyl Citrate 250 ml @ 2.5 mls/hr Q24H IV 08/22/25 17:15 08/28/25 03:31 10 MLS/HR Propofol 100 ml @ 2.67 mls/hr Q24H IV 08/22/25 17:45 08/22/25 17:47 10.68 MLS/HR Amlodipine Besylate 10 mg DAILY PO 08/25/25 12:45 08/27/25 07:58 10 MG Furosemide 40 mg BIDD IV 08/25/25 18:00 08/28/25 07:04 40 MG Hydralazine HCl 10 mg Q8HR PO 08/26/25 22:00 08/27/25 14:45 10 MG laboratory and microbiology Laboratory Tests 08/28/25 04:03 Test 08/28/25 04:03 Range/Units Serum Glucose 103 74-106 mg/dL Problem List ORGANIC HEART DISEASE CAD HFrEF HTN 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 Water flush 50ml Q6H if allowed, adjust PRN. TF at goal volume along with propofol & Pro-stat provide 1777 kcal (100%), 89 gm protein (83%), and 723 ml free water(including flush). 2) TPN if NPO >7 days 3) Monitor NPO status, lab values, weight trend, and I/O Expected Outcomes/Goals: Intake to meet >75% estimated needs Lab values to improve FU 2-3 days Plan discussed with: Patient Critical Care Time(min): 35 RAMIN GARCIA MD Aug 28, 2025 09:08
--- NOTE | 2025-08-28 09:11 | DVHPN2 ---
Progress Note - Dictate Date Seen: Aug 28, 2025 Medical Necessity Reason Pt with a Central, PICC or Fol: Yes The following are medically ne: Central Line, Schuster Catheter Subjective PT WELL KNOWN TO ME ORGANIC HEART DISEASE CAD HFrEF HTN 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 HYPERKALEMIA COPD HYPERLIPIDEMIA SIGN SX COMPLEX OF NOW WITH SOB CHEST PAIN RENAL FAILURE HYPERKALEMIA RESP FAILURE REQUIRING INTUBATION vital signs Vital Sign Date Time Temp Pulse Resp B/P (MAP) Pulse Ox O2 Delivery O2 Flow Rate FiO2 08/28/25 08:18 74 24 131/56 (81) 94 45 08/28/25 08:00 Mechanical Ventilator+ 08/28/25 06:30 98.6 209.5 Total Intake and Output 08/27/25 08/27/25 08/28/25 15:00 23:00 07:00 Intake Total 176 ml 505.5 ml 456.0 ml Output Total 950 ml 700 ml Balance 176 ml -444.5 ml -244.0 ml medications Current Medications Medications Dose Ordered Sig/Adri Route Start Time Stop Time Status Last Admin Dose Admin Albuterol 2.5 mg Q4HPRN PRN NEB 08/20/25 23:15 08/27/25 22:15 2.5 MG Ipratropium [place] 0.5 mg Q4HPRN PRN NEB 08/20/25 23:15 08/27/25 22:15 0.5 MG Multivit/Ca Carb/ B Cmplx/FA/Prenat 1 tab DAILY PO 08/21/25 10:00 08/27/25 07:58 1 TAB Ceftriaxone Sodium 50 ml @ 100 mls/hr DAILY@09 IV 08/21/25 09:00 08/28/25 08:34 100 MLS/HR Diagnostic Test (Pha) 1 strip ACHS 08/21/25 07:00 08/28/25 05:40 1 STRIP Insulin Human Regular ACHS SC 08/21/25 07:00 08/27/25 06:12 2 UNITS Dextrose 50 ml UD PRN IV 08/20/25 23:15 Sodium Chloride 10 ml Q8HR IV 08/21/25 06:00 08/28/25 05:39 10 ML Docusate Sodium 100 mg BIDPRN PRN PO 08/20/25 23:15 Acetaminophen 650 mg Q6HP PRN PO 08/20/25 23:15 Nitroglycerin 0.4 mg Q5MINP PRN SL 08/20/25 23:15 Morphine Sulfate 2 mg Q30M PRN IV 08/20/25 23:15 Midazolam HCl 100 ml @ 1 mls/hr Q24H IV 08/21/25 01:45 08/28/25 07:31 2 MLS/HR Pantoprazole Sodium 40 mg DAILY IV 08/22/25 10:00 08/27/25 07:58 40 MG Enteral Nutritional Formula 1,000 ml 30ML/HR GT 08/22/25 17:15 08/27/25 06:11 1,000 ML Fentanyl Citrate 250 ml @ 2.5 mls/hr Q24H IV 08/22/25 17:15 08/28/25 03:31 10 MLS/HR Propofol 100 ml @ 2.67 mls/hr Q24H IV 08/22/25 17:45 08/22/25 17:47 10.68 MLS/HR Amlodipine Besylate 10 mg DAILY PO 08/25/25 12:45 08/27/25 07:58 10 MG Furosemide 40 mg BIDD IV 08/25/25 18:00 08/28/25 07:04 40 MG Hydralazine HCl 10 mg Q8HR PO 08/26/25 22:00 08/27/25 14:45 10 MG laboratory and microbiology Laboratory Tests 08/28/25 04:03 Test 08/28/25 04:03 Range/Units Serum Glucose 103 74-106 mg/dL Problem List ORGANIC HEART DISEASE CAD HFrEF HTN 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 HYPERKALEMIA COPD HYPERLIPIDEMIA SIGN SX COMPLEX OF NOW WITH SOB CHEST PAIN RENAL FAILURE HYPERKALEMIA RESP FAILURE REQUIRING INTUBATION Assessment/Plan CORRECT HYPERKALEMIA CONSIDER ECHO IF INCONCLUSIVE CONSIDER L/RHC BNP 370 ABX DC BUMEX START IVF AT 100 CC/HR ADD LOKELMA K+ CORRECTED REPEAT BNP WILL PROCEED WITH L/RHC ON FRIDAY POSITIVE FOR INFLUENZA A AND B POSITIVE START WEANING PT Dietary Evaluation Review Comments: Nutrition Recommendation: 1) EN Nepro Carbsteady @ 30ml/hr x 24hr (goal) along with Pro-stat 1 pk BID. Water flush 50ml Q6H if allowed, adjust PRN. TF at goal volume along with propofol & Pro-stat provide 1777 kcal (100%), 89 gm protein (83%), and 723 ml free water(including flush). 2) TPN if NPO >7 days 3) Monitor NPO status, lab values, weight trend, and I/O Expected Outcomes/Goals: Intake to meet >75% estimated needs Lab values to improve FU 2-3 days Critical Care Time(min): 35 RAMIN GARCIA MD Aug 28, 2025 09:11
[2025-08-28] MEDS: SODIUM CHLORIDE 0.9% 1,000 ML IV ONE (11:16)
--- NOTE | 2025-08-28 11:40 | DVHPN2 ---
Progress Note Date Seen: Aug 28, 2025 Medical Necessity Reason Pt with a Central, PICC or Fol: Yes The following are medically ne: Central Line, Meng Catheter Reason for meng catheter: Strict I&O Subjective Review of Systems: Deferred Objective vital signs Vital Sign Date Time Temp Pulse Resp B/P (MAP) Pulse Ox O2 Delivery O2 Flow Rate FiO2 08/28/25 10:54 132/57 08/28/25 10:23 77 24 95 40 08/28/25 08:45 98.6 209.5 08/28/25 08:00 Mechanical Ventilator+ Total Intake and Output 08/27/25 08/27/25 08/28/25 15:00 23:00 07:00 Intake Total 176 ml 505.5 ml 456.0 ml Output Total 950 ml 700 ml Balance 176 ml -444.5 ml -244.0 ml medications Current Medications Medications Dose Ordered Sig/Ardi Route Start Time Stop Time Status Last Admin Dose Admin Albuterol 2.5 mg Q4HPRN PRN NEB 08/20/25 23:15 08/27/25 22:15 2.5 MG Ipratropium [place] 0.5 mg Q4HPRN PRN NEB 08/20/25 23:15 08/27/25 22:15 0.5 MG Multivit/Ca Carb/ B Cmplx/FA/Prenat 1 tab DAILY PO 08/21/25 10:00 08/28/25 10:53 1 TAB Ceftriaxone Sodium 50 ml @ 100 mls/hr DAILY@09 IV 08/21/25 09:00 08/28/25 08:34 100 MLS/HR Diagnostic Test (Pha) 1 strip ACHS 08/21/25 07:00 08/28/25 10:54 1 STRIP Insulin Human Regular ACHS SC 08/21/25 07:00 08/28/25 11:06 2 UNITS Dextrose 50 ml UD PRN IV 08/20/25 23:15 Sodium Chloride 10 ml Q8HR IV 08/21/25 06:00 08/28/25 05:39 10 ML Docusate Sodium 100 mg BIDPRN PRN PO 08/20/25 23:15 Acetaminophen 650 mg Q6HP PRN PO 08/20/25 23:15 Nitroglycerin 0.4 mg Q5MINP PRN SL 08/20/25 23:15 Morphine Sulfate 2 mg Q30M PRN IV 08/20/25 23:15 Midazolam HCl 100 ml @ 1 mls/hr Q24H IV 08/21/25 01:45 08/28/25 07:31 2 MLS/HR Pantoprazole Sodium 40 mg DAILY IV 08/22/25 10:00 08/28/25 10:53 40 MG Enteral Nutritional Formula 1,000 ml 30ML/HR GT 08/22/25 17:15 08/27/25 06:11 1,000 ML Fentanyl Citrate 250 ml @ 2.5 mls/hr Q24H IV 08/22/25 17:15 08/28/25 03:31 10 MLS/HR Propofol 100 ml @ 2.67 mls/hr Q24H IV 08/22/25 17:45 08/22/25 17:47 10.68 MLS/HR Amlodipine Besylate 10 mg DAILY PO 08/25/25 12:45 08/28/25 10:54 10 MG Hydralazine HCl 10 mg Q8HR PO 08/26/25 22:00 08/27/25 14:45 10 MG Examination: GENERAL:Abnormal, LUNGS:Abnormal, CVS:Abnormal, SKIN:Abnormal laboratory and microbiology Laboratory Tests 08/28/25 04:03 Test 08/28/25 04:03 Range/Units Serum Glucose 103 74-106 mg/dL Microbiology Date/Time Source Procedure Growth Status 08/22/25 12:52 Urine - Meng Port Urine Culture - Final Complete 08/22/25 08:06 Nose MRSA Screen - Final Complete Problem List/Assessment/Plan Problem List/Assessment/Plan Acute kidney injury superimposed Chronic Kidney Disease stage III B secondary hemodynamic mediated, ATN Acute hypoxic respiratory failure, patient intubated on ventilator Community-acquired pneumonia , influenza Diabetes mellitus type 2 Nephrotic syndrome secondary to underlying diabetic nephropathy hypertension Recommendations Kidney function elevated today htn- norvasc, continue hydralazine for BP control tube feeding monitor fluid balances cardiology plans for [facility] friday , elevated risk of contrast induced nephropathy due to reduced GFR. Recommend IVF 250cc bolus 1 hour prior to cath and 100cc/hr for of 0.9%NACL for 5 hours after cath Strict I&Os kidney ultrasound reported within normal limit IV antibiotics Avoid nephrotoxic medications Plan discussed with: Other Dietary Evaluation Review Comments: Nutrition Recommendation: 1) EN Nepro Carbsteady @ 30ml/hr x 24hr (goal) along with Pro-stat 1 pk BID. Water flush 50ml Q6H if allowed, adjust PRN. TF at goal volume along with propofol & Pro-stat provide 1777 kcal (100%), 89 gm protein (83%), and 723 ml free water(including flush). 2) TPN if NPO >7 days 3) Monitor NPO status, lab values, weight trend, and I/O Expected Outcomes/Goals: Intake to meet >75% estimated needs Lab values to improve FU 2-3 days KELLY DIAZ MD Aug 28, 2025 11:40
--- NOTE | 2025-08-28 16:11 | DVHPNRES ---
Progress Note Date Seen: Aug 28, 2025 Resident Creating Document: HARVEY MOORE RESIDENT Has the PT tested + for MRSA If YES, has PT been informed?: No Medical Necessity Reason Pt with a Central, PICC or Fol: Yes The following are medically ne: Central Line, Meng Catheter Reason for meng catheter: Strict I&O Subjective Review of Systems Ms. Marin is a 75-year-old female with prior medical history of CHF, COPD with home oxygen, gout, anxiety, diabetes mellitus, hyperlipidemia, hypertension, and PAD, who to [facility] with chief complaint of shortness of breath and back and midsternal non-radiating chest pain. At time of this evaluation the patient is intubated and sedated, history was taken from her daughter Susy at bedside and from medical record. Per her daughter, patient has been complaining of progressively worsening shortness of breath for the last 2 weeks associated with general malaise and orthopnea, describing very wet coughing sounds when her mother lays flat. She states that her mother began complaining of worsening shortness of breath associated with non-radiating midsternal chest pain which prompted her to call EMS. Per record, on seen she was saturating 74%, she was placed on CPAP with inspiration increasing to 88% on route to the emergency department. On evaluation in the ED, is afebrile, slightly hypertensive, and tachypneic saturating 81% which she was placed on BiPAP. Initial labs significant for leukocytosis of 11.3, with elevated hematocrit, and thrombocytopenia, Hyperkalemia, creatinine 4.09, BUN 46, and ABG significant for respiratory acidosis, troponins are negative, BNP 2515.41.Patient is influenza A and B positive. Chest x-ray shows moderate to severe pulmonary edema. Patient further deteriorated requiring intubation for respiratory distress. She was started on IV Lasix, IV methylprednisolone, hyperkalemia protocol, bicarbonate drip, and nitroglycerin drip. On my initial evaluation in the ED, the patient is sedated, intubated, and mechanically ventilated, currently not on pressors. Prior Medical history: CHF, COPD, gout, anxiety, type 2 diabetes mellitus, hyperlipidemia, hypertension, PAD, pulmonary hypertension Previous surgical history: Left leg stenting for PAD Allergies: Denies Social history: Daughter refers the patient smokes cigarettes with cessation approximately 20 years ago Home medications: Allopurinol, insulin, gabapentin, simvastatin, tadalafil 08/26/2025: Patient seen in the ICU. She is sedated, intubated, mechanically ventilated, not on pressors. She is afebrile, bradycardic, blood pressure is more in control. Renal function is improving. Chest xray has improved with increased diuresis. She is pending right and left heart cath on Friday. 08/25/2025: Patient seen in the ICU. She is sedated, intubated, mechanically ventilated, not on pressors. She is afebrile, bradycardic, mostly hypertensive. Hemoglobin and platelets are improving. Renal function is improved. Chest xray is showing increased pleural effusion. 08/24/2025: Patient seen in the ICU. She is sedated, intubated, mechanically ventilated, not on pressors. Per nurseBonnie, the patient had some bloody secretions suctioned out of ET tube today. She is afebrile, continues to tend toward bradycardia, with improved blood pressure control. Hemoglobin and platelets are trending down. Renal function and output have improved. Given that sodium is corrected, D5W has been corrected. Per Dr. Bahena, the patient will go to L and right heart cath on Friday. We will continue to monitor. 08/23/2025: Patient seen in the ICU. She is sedated, intubated, mechanically ventilated, not on pressors. She is afebrile, tends toward bradycardia, blood pressure is more in control, and saturating adequately on the ventilator. CBC is stbale. Creatinine continues to elevate, however, hyperkalemia has resolved. Patient still has a positive fluid balance for which nephrology has started the patient on Albumin and a bumex drip. Bicarbonate drip has been discontinued. Per cardiology, bumex was to be discontinued and IVF at 100cc/hr have been started. Tube feeds have been restarted. Read of echocardiogram is still pending. 08/26/2025: Patient was seen in ICU. She is sedated, intubated, mechanically ventilated, not on pressors. CBC shows thrombocytopenia, persists with hyperkalemia, kidney function continues to worsen. UA is significant for UTI. She is being followed by nephrology who is currently recommending recommended a kidney ultrasound and hyperkalemia protocol to reduce serum potassium. She was evaluated by her sales and marketing professional, Dr. Bahena, who recommends echocardiogram, if inconclusive possible R/LHC. Tube feeds will be initiated. We will continue to monitor 08/27/25: Patient is seen and examined at bedside, , intubated, mechanically ventilated, not on pressors. She was evaluated by her sales and marketing professional, Dr. Bahena, who recommends echocardiogram, if inconclusive possible R/LHC. Tube feeds will be initiated. We will continue to monitor. 08/28/25 Sedation reduced today for neurologic assessment; patient remains sedated but arousable to stimulation. * IV fluid optimization initiated: Started 0.9% NS at 75 mL/hr, given concern for worsening COLE (Cr 4.26 today - 4.03 yesterday). * Strictly discontinued diuretics (Bumex/Lasix) due to elevated creatinine. * No peripheral edema today. * Left heart cath + right heart cath planned for tomorrow ONLY after renal function improves; currently high risk for contrast-induced nephropathy due to low GFR. * Pre-cath renal protection plan reviewed: * 250 mL NS bolus 1 hr prior * NS at 100 mL/hr for 5 hours after * WBC 13.6 (leukocytosis), Hgb 12.3, Plt 122 (mild thrombocytopenia). * ABG: pH 7.37, PCO2 40.2, PO2 58.3 (low), HCO2 23, O2 sat 87% (low). * Current ventilator settings: FiO2 40%, PEEP 5, TV 450 mL. Objective vital signs Vital Sign Date Time Temp Pulse Resp B/P (MAP) Pulse Ox O2 Delivery O2 Flow Rate FiO2 08/28/25 14:47 73 24 129/59 (82) 95 40 08/28/25 14:30 98.4 209.1 08/28/25 14:00 Mechanical Ventilator+ Total Intake and Output 08/27/25 08/27/25 08/28/25 15:00 23:00 07:00 Intake Total 176 ml 505.5 ml 456.0 ml Output Total 950 ml 700 ml Balance 176 ml -444.5 ml -244.0 ml medications Current Medications Medications Dose Ordered Sig/Adri Route Start Time Stop Time Status Last Admin Dose Admin Albuterol 2.5 mg Q4HPRN PRN NEB 08/20/25 23:15 08/27/25 22:15 2.5 MG Ipratropium [place] 0.5 mg Q4HPRN PRN NEB 08/20/25 23:15 08/27/25 22:15 0.5 MG Multivit/Ca Carb/ B Cmplx/FA/Prenat 1 tab DAILY PO 08/21/25 10:00 08/28/25 10:53 1 TAB Ceftriaxone Sodium 50 ml @ 100 mls/hr DAILY@09 IV 08/21/25 09:00 08/28/25 08:34 100 MLS/HR Diagnostic Test (Pha) 1 strip ACHS 08/21/25 07:00 08/28/25 10:54 1 STRIP Insulin Human Regular ACHS SC 08/21/25 07:00 08/28/25 11:06 2 UNITS Dextrose 50 ml UD PRN IV 08/20/25 23:15 Sodium Chloride 10 ml Q8HR IV 08/21/25 06:00 08/28/25 14:12 10 ML Docusate Sodium 100 mg BIDPRN PRN PO 08/20/25 23:15 Acetaminophen 650 mg Q6HP PRN PO 08/20/25 23:15 Nitroglycerin 0.4 mg Q5MINP PRN SL 08/20/25 23:15 Morphine Sulfate 2 mg Q30M PRN IV 08/20/25 23:15 Midazolam HCl 100 ml @ 1 mls/hr Q24H IV 08/21/25 01:45 08/28/25 07:31 2 MLS/HR Pantoprazole Sodium 40 mg DAILY IV 08/22/25 10:00 08/28/25 10:53 40 MG Enteral Nutritional Formula 1,000 ml 30ML/HR GT 08/22/25 17:15 08/27/25 06:11 1,000 ML Fentanyl Citrate 250 ml @ 2.5 mls/hr Q24H IV 08/22/25 17:15 08/28/25 03:31 10 MLS/HR Propofol 100 ml @ 2.67 mls/hr Q24H IV 08/22/25 17:45 08/22/25 17:47 10.68 MLS/HR Amlodipine Besylate 10 mg DAILY PO 08/25/25 12:45 08/28/25 10:54 10 MG Hydralazine HCl 10 mg Q8HR PO 08/26/25 22:00 08/28/25 14:13 10 MG Examination General: Patient is intubated, sedated, mechanically ventilated, RASS -3, is reactive to painful stimulus HEENT: Normocephalic, atraumatic, pin point pupils sluggish, no EOM, pink conjunctiva, pink moist mucous membrane, ET tube in place Respiratory/pulmonary: Bilateral chest expansion, improved breath sounds bilaterally Cardiovascular: Normal RRR Abdomen: Obese, Abdomen nondistended, normal bowel sounds, soft, no grimacing is observed on palpation, no palpable masses. Extremities: No deformities, no edema, pulses 2+ bilateral lower extremities, left femoral central venous catheter present Skin: No rashes or pruritus, there is no sacral edema present at this time. Neurological: cough and gag reflex present. laboratory and microbiology Laboratory Tests 08/28/25 04:03 Test 08/28/25 04:03 Range/Units Serum Glucose 103 74-106 mg/dL Microbiology Date/Time Source Procedure Growth Status 08/22/25 12:52 Urine - Meng Port Urine Culture - Final Complete 08/22/25 08:06 Nose MRSA Screen - Final Complete Problem List/Assessment/Plan Problem List/Assessment/Plan Neurology # Sedated - Versed 8 - Propofol: Discontinued - Fentanyl 150 * Sedation decreased; continue daily sedation awakening trial. * Continue RASS goal 1 to 2. * Avoid oversedation to help with extubation readiness. Cardiovascular # Acute on chronic HFrEF # Pulmonary Edema - BNP 2515.41 --> 370 - Chest xray 08/20/2025: Moderate to severe pulmonary edema - Chest xray 08/21/2025: Cardiomegaly with pulmonary venous congestion and edema - Echocardiogram 01/14/2022: EF > 60%, Limited echo windows, mild TR, MR - New echocardiogram has been ordered, pending read - Cardiology: * Left and Right Heart Catheterization postponed until renal function improves. Contrast Nephropathy Prophylaxis (when cath occurs): * 0.9% NS 250 mL bolus 1 hr before procedure * NS 100 mL/hr x 5 hours post-procedure - * Hold diuretics due to COLE. -- Bumex drip discontinued by cardiology -- D5W has been discontinued due to resolution of hypernatremia - Chest Xray shows worsening, for which lasix 40 mg BID will be initiated #Hypertension - Amlodipine 10 mg NG daily #CAD - Patient will go to right and left heart cath on Friday #Possible pulmonary hypertension Respiratory # Ventilator -intubated (08/21/2025) -On [facility] vent : VCAC Mode RR 24 TV 450ml, PEEP Of 5 and FiO2 of 40% # Acute hypercapnic respiratory failure secondary to pulmonary edema # Acute COPD exacerbation - Methylprednisolone 40 mg IV, discontinued - Ipratropium medneb - Albuterol medneb - Ceftriaxone 1 g IV daily * Intubated * Vent settings: FiO2 40%, TV 450 mL, PEEP 5. * ABG shows adequate pH and CO2; hypoxemia persists. * Plan: * Daily SBT when sedation reduced. * Maintain FiO2 < 60% * Aim for PaO2 > 60, SpO2> 92%. #Influenza A and B - Tamiflu 30 mg BID suspension GI # Peptic ulcer prophylaxis -Pantoprazole 40 mg IV daily # Meng catheter Nephrology # COLE likely hemodynamically mediated/ VMN * Severe COLE Cr 4.26 * Hold all diuretics (Bumex, Lasix). * Continue NS at 75 mL/hr. * Consider 395037 mL bolus if UOP <0.5 mL/kg/hr. #Hyperkalemia, resolved - Per nephrology: trial of forced diuresis to enhance potassium excretion, serial chemistry panels, IV bicarbonate infusion, and avoidance of IV contrast if able, currently without urgent indication for kidney replacement therapy - Bicarbonate drip has been dc'd - Per Cardiology: [facility] . #Acute metabolic acidosis #Hypernatremia, resolved - D5W, discontinued Infectious disease # Influenza A and B Pneumonia - Tamiflu 30 mg BID suspension Hem/onc #Thrombocytopenia - Monitor Endocrine #Type 2 diabetes mellitus - SSI -Accu cheks DVT prophylaxis: SCD PUD prophylaxis: Pantoprazole 40 mg IV daily Lines -L femoral Central line 08/20/2025 -Meng catheter 08/20/2025 -ET tube: 08/21/2025 Nutrition: Nepro at a rate of 30 Drips during [facility] ventilation Versed 8 Fentanyl 150 Propofol: Discontinued Nitroglycerin: Discontinued Nicardipine drip: Discontinued Bicarbonate drip: Discontinued Critical care time 51 minutes excluding procedure. Code status discussed greater than 20 minutes: Full CODE STATUS. Family at bedside explained about the condition of the patient Plan discussed with Plan discussed with: Other (RN) Plan discussed with: Daughter Dietary Evaluation Review Comments: Nutrition Recommendation: 1) EN Nepro Carbsteady @ 30ml/hr x 24hr (goal) along with Pro-stat 1 pk BID. Water flush 50ml Q6H if allowed, adjust PRN. TF at goal volume along with propofol & Pro-stat provide 1777 kcal (100%), 89 gm protein (83%), and 723 ml free water(including flush). 2) TPN if NPO >7 days 3) Monitor NPO status, lab values, weight trend, and I/O Expected Outcomes/Goals: Intake to meet >75% estimated needs Lab values to improve FU 2-3 days HARVEY MOORE RESIDENT Aug 28, 2025 16:11
[2025-08-29] VITALS (117 sets, daily range): BP systolic 95–182; BP diastolic 42–88; PULSE 45–98; RESP 0–26; TEMP 95.2–98.8; O2SAT 94–100
--- NOTE | 2025-08-29 04:23 | DVH ---
CHEST RADIOGRAPH Indication: Acute hypoxic respiratory failure Technique: Single frontal view of the chest was obtained COMPARISON: XY CHEST XRAY 1 VIEW on DOS: 08/28/25, XY CHEST XRAY 1 VIEW on DOS: 08/27/25, XY CHEST XRAY 1 VIEW on DOS: 08/26/25, XY CHEST XRAY 1 VIEW on DOS: 08/25/25, XY CHEST XRAY 1 VIEW on DOS: 08/24/25 FINDINGS: Lines and Tubes: Unchanged. Lungs: The patient is rotated to the right. Grossly stable appearing diffuse Increased prominence of the pulmonary vasculature and bilateral pleural effusions. No pneumothorax. Cardiomediastinal contours: Cardiomegaly. Bones: Unremarkable IMPRESSION: 1. Stable diffuse increased prominence of the pulmonary vasculature and bilateral pleural effusions. 2. Cardiomegaly. 3. Lines and tubes unchanged.
[2025-08-29 04:30] LABS: Hemoglobin 12.2 g/dL (12.2-16.2)
[2025-08-29 04:33] LABS: Hematocrit 42.9 % (36.0-46.0); Mean Corpuscular Hemoglobin 18.8 pg (28.0-32.0); Mean Corpuscular Volume 66.1 fL (80.0-100.0); Nucleated Red Blood Cells % 0.0 %
[2025-08-29 04:47] LABS: Albumin 3.2 g/dL (3.2-4.8); Alkaline Phosphatase 83 U/L (46-116); Anion Gap 13 (5-15); BUN/Creatinine Ratio 13.9 (10.0-20.0); Calcium 8.9 mg/dL (8.7-10.4); Carbon Dioxide 27 mmol/L (20-31); Chloride 104 mmol/L (98-107); Glucose 99 mg/dL (74-106); Potassium 3.7 mmol/L (3.5-5.1); Sodium 144 mmol/L (136-145); Total Protein 6.0 g/dL (5.7-8.2)
[2025-08-29 04:48] LABS: Bilirubin, Total 0.4 mg/dL (0.2-1.0)
[2025-08-29 04:50] LABS: Alanine Aminotransferase < 9 U/L (7-40); Blood Urea Nitrogen 63 mg/dL (9-23)
[2025-08-29 04:59] LABS: Anisocytosis Moderate
[2025-08-29 07:13] LABS: Base Excess -0.9 mmol/L (-2.0-3.0)
--- NOTE | 2025-08-29 11:34 | DVHPN2 ---
Progress Note Date Seen: Aug 29, 2025 Has the PT tested + for MRSA If YES, has PT been informed?: No Medical Necessity Reason Pt with a Central, PICC or Fol: Yes The following are medically ne: Central Line, Meng Catheter Reason for meng catheter: Strict I&O Subjective Review of Systems: RESPIRATORY:Abnormal Other Systems: Patient seen and examined by myself today in follow-up, patient remained intubated on the ventilator Objective vital signs Vital Sign Date Time Temp Pulse Resp B/P (MAP) Pulse Ox O2 Delivery O2 Flow Rate FiO2 08/29/25 10:15 75 24 159/71 (100) 97 45 08/29/25 09:31 98.2 208.8 08/29/25 08:00 Mechanical Ventilator+ Total Intake and Output 08/28/25 08/28/25 08/29/25 14:59 22:59 06:59 Intake Total 229.0 ml 1129.0 ml 398.5 ml Output Total 800 ml 350 ml Balance 229.0 ml 329.0 ml 48.5 ml medications Current Medications Medications Dose Ordered Sig/Adri Route Start Time Stop Time Status Last Admin Dose Admin Albuterol 2.5 mg Q4HPRN PRN NEB 08/20/25 23:15 08/28/25 18:12 2.5 MG Ipratropium [place] 0.5 mg Q4HPRN PRN NEB 08/20/25 23:15 08/28/25 18:12 0.5 MG Multivit/Ca Carb/ B Cmplx/FA/Prenat 1 tab DAILY PO 08/21/25 10:00 08/29/25 10:03 1 TAB Ceftriaxone Sodium 50 ml @ 100 mls/hr DAILY@09 IV 08/21/25 09:00 08/29/25 09:06 100 MLS/HR Diagnostic Test (Pha) 1 strip ACHS 08/21/25 07:00 08/29/25 11:27 1 STRIP Insulin Human Regular ACHS SC 08/21/25 07:00 08/28/25 18:01 2 UNITS Dextrose 50 ml UD PRN IV 08/20/25 23:15 Sodium Chloride 10 ml Q8HR IV 08/21/25 06:00 08/29/25 05:52 10 ML Docusate Sodium 100 mg BIDPRN PRN PO 08/20/25 23:15 Acetaminophen 650 mg Q6HP PRN PO 08/20/25 23:15 Nitroglycerin 0.4 mg Q5MINP PRN SL 08/20/25 23:15 Morphine Sulfate 2 mg Q30M PRN IV 08/20/25 23:15 Midazolam HCl 100 ml @ 1 mls/hr Q24H IV 08/21/25 01:45 08/28/25 07:31 2 MLS/HR Pantoprazole Sodium 40 mg DAILY IV 08/22/25 10:00 08/29/25 10:03 40 MG Enteral Nutritional Formula 1,000 ml 30ML/HR GT 08/22/25 17:15 08/27/25 06:11 1,000 ML Fentanyl Citrate 250 ml @ 2.5 mls/hr Q24H IV 08/22/25 17:15 08/28/25 23:07 10 MLS/HR Propofol 100 ml @ 2.67 mls/hr Q24H IV 08/22/25 17:45 08/22/25 17:47 10.68 MLS/HR Amlodipine Besylate 10 mg DAILY PO 08/25/25 12:45 08/29/25 10:03 10 MG Hydralazine HCl 10 mg Q8HR PO 08/26/25 22:00 08/28/25 14:13 10 MG Examination: LUNGS:Normal, CVS:Normal, MSK:Normal laboratory and microbiology Laboratory Tests 08/29/25 04:02 Test 08/29/25 04:02 Range/Units Serum Glucose 99 74-106 mg/dL Microbiology Date/Time Source Procedure Growth Status 08/22/25 12:52 Urine - Meng Port Urine Culture - Final Complete 08/22/25 08:06 Nose MRSA Screen - Final Complete Problem List/Assessment/Plan Problem List/Assessment/Plan Acute kidney injury superimposed Chronic Kidney Disease stage III B secondary hemodynamic mediated, ATN, FeNa > 2% Acute hypoxic respiratory failure, patient intubated on ventilator Community-acquired pneumonia Diabetes mellitus type 2 Nephrotic syndrome secondary to underlying diabetic nephropathy Hyperkalemia Hypernatremia due to insensible water loss Recommendations Kidney function slightly worsened today Increased urine output Hyperkalemia resolved Hypernatremia appropriately resolved Strict I&Os kidney ultrasound reported within normal limit IV antibiotics Avoid nephrotoxic medications We will continue to follow Plan discussed with: Other (Nurse) Dietary Evaluation Review Comments: Nutrition Recommendation: 1) EN Nepro Carbsteady @ 30ml/hr x 24hr (goal) along with Pro-stat 1 pk BID. Water flush 50ml Q6H if allowed, adjust PRN. TF at goal volume along with propofol & Pro-stat provide 1777 kcal (100%), 89 gm protein (83%), and 723 ml free water(including flush). 2) TPN if NPO >7 days 3) Monitor NPO status, lab values, weight trend, and I/O Expected Outcomes/Goals: Intake to meet >75% estimated needs Lab values to improve FU 2-3 days JEANNE WHITE MD Aug 29, 2025 11:34
--- NOTE | 2025-08-29 13:39 | DVHPN2 ---
Progress Note - Dictate Date Seen: Aug 29, 2025 Has the PT tested + for MRSA If YES, has PT been informed?: No Medical Necessity Reason Pt with a Central, PICC or Fol: Yes The following are medically ne: Central Line, Meng Catheter Reason for meng catheter: Strict I&O Subjective PT WELL KNOWN TO ME ORGANIC HEART DISEASE CAD HFrEF HTN 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 HYPERKALEMIA COPD HYPERLIPIDEMIA SIGN SX COMPLEX OF NOW WITH SOB CHEST PAIN RENAL FAILURE HYPERKALEMIA RESP FAILURE REQUIRING INTUBATION vital signs Vital Sign Date Time Temp Pulse Resp B/P (MAP) Pulse Ox O2 Delivery O2 Flow Rate FiO2 08/29/25 13:10 77 24 111/52 (71) 96 45 08/29/25 12:01 98.1 208.6 08/29/25 12:00 Mechanical Ventilator+ Total Intake and Output 08/28/25 08/28/25 08/29/25 14:59 22:59 06:59 Intake Total 229.0 ml 1129.0 ml 398.5 ml Output Total 800 ml 350 ml Balance 229.0 ml 329.0 ml 48.5 ml medications Current Medications Medications Dose Ordered Sig/Adri Route Start Time Stop Time Status Last Admin Dose Admin Albuterol 2.5 mg Q4HPRN PRN NEB 08/20/25 23:15 08/28/25 18:12 2.5 MG Ipratropium Roach 0.5 mg Q4HPRN PRN NEB 08/20/25 23:15 08/28/25 18:12 0.5 MG Multivit/Ca Carb/ B Cmplx/FA/Prenat 1 tab DAILY PO 08/21/25 10:00 08/29/25 10:03 1 TAB Ceftriaxone Sodium 50 ml @ 100 mls/hr DAILY@09 IV 08/21/25 09:00 08/29/25 09:06 100 MLS/HR Diagnostic Test (Pha) 1 strip ACHS 08/21/25 07:00 08/29/25 11:27 1 STRIP Insulin Human Regular ACHS SC 08/21/25 07:00 08/28/25 18:01 2 UNITS Dextrose 50 ml UD PRN IV 08/20/25 23:15 Sodium Chloride 10 ml Q8HR IV 08/21/25 06:00 08/29/25 05:52 10 ML Docusate Sodium 100 mg BIDPRN PRN PO 08/20/25 23:15 Acetaminophen 650 mg Q6HP PRN PO 08/20/25 23:15 Nitroglycerin 0.4 mg Q5MINP PRN SL 08/20/25 23:15 Morphine Sulfate 2 mg Q30M PRN IV 08/20/25 23:15 Midazolam HCl 100 ml @ 1 mls/hr Q24H IV 08/21/25 01:45 08/28/25 07:31 2 MLS/HR Pantoprazole Sodium 40 mg DAILY IV 08/22/25 10:00 08/29/25 10:03 40 MG Fentanyl Citrate 250 ml @ 2.5 mls/hr Q24H IV 08/22/25 17:15 08/28/25 23:07 10 MLS/HR Propofol 100 ml @ 2.67 mls/hr Q24H IV 08/22/25 17:45 08/22/25 17:47 10.68 MLS/HR Amlodipine Besylate 10 mg DAILY PO 08/25/25 12:45 08/29/25 10:03 10 MG Hydralazine HCl 10 mg Q8HR PO 08/26/25 22:00 08/28/25 14:13 10 MG Enteral Nutritional Formula 1,000 ml 45ML/HR GT 08/29/25 12:45 laboratory and microbiology Laboratory Tests 08/29/25 04:02 Test 08/29/25 04:02 Range/Units Serum Glucose 99 74-106 mg/dL Problem List ORGANIC HEART DISEASE CAD HFrEF HTN 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 HYPERKALEMIA COPD HYPERLIPIDEMIA SIGN SX COMPLEX OF NOW WITH SOB CHEST PAIN RENAL FAILURE HYPERKALEMIA RESP FAILURE REQUIRING INTUBATION Assessment/Plan CORRECT HYPERKALEMIA CONSIDER ECHO IF INCONCLUSIVE CONSIDER L/RHC BNP 370 ABX DC BUMEX START IVF AT 100 CC/HR ADD LOKELMA K+ CORRECTED REPEAT BNP WILL PROCEED WITH L/RHC ON FRIDAY POSITIVE FOR INFLUENZA A AND B POSITIVE START WEANING PT CON IV FLUID L/RHC IN AM Dietary Evaluation Review Comments: Nutrition Recommendation: 1) EN Nepro Carbsteady @ 30ml/hr x 24hr (goal) along with Pro-stat 1 pk BID. Water flush 50ml Q6H if allowed, adjust PRN. TF at goal volume along with propofol & Pro-stat provide 1777 kcal (100%), 89 gm protein (83%), and 723 ml free water(including flush). 2) TPN if NPO >7 days 3) Monitor NPO status, lab values, weight trend, and I/O Expected Outcomes/Goals: Intake to meet >75% estimated needs Lab values to improve FU 2-3 days Plan discussed with: Daughter Critical Care Time(min): 35 RAMIN GARCIA MD Aug 29, 2025 13:39
--- NOTE | 2025-08-29 14:21 | DVH ---
CLINICAL HISTORY: CENTRAL LINE PLACEMENT TECHNIQUE: Single view of the chest was obtained. COMPARISON: XY CHEST XRAY 1 VIEW on DOS: 08/29/25, XY CHEST XRAY 1 VIEW on DOS: 08/28/25, XY CHEST XRAY 1 VIEW on DOS: 08/27/25, XY CHEST XRAY 1 VIEW on DOS: 08/26/25, XY CHEST XRAY 1 VIEW on DOS: 08/25/25 FINDINGS: A left approach central catheter terminates at the cavoatrial junction. An endotracheal tube terminates in satisfactory position above the delfino. Nasogastric tube extends beyond the diaphragm and edge of the image. The heart size is mildly enlarged. There is unchanged pulmonary vascular congestion small bilateral pleural effusions. IMPRESSION: Left approach central catheter terminates at the cavoatrial junction.
[2025-08-29] MEDS: Nepro With Carb Steady 1 Liter Bottle GT SCH (17:42)
--- NOTE | 2025-08-29 18:43 | DVHPNRES ---
Progress Note Date Seen: Aug 29, 2025 Resident Creating Document: SALLY MINOR RESIDENT Has the PT tested + for MRSA If YES, has PT been informed?: No Medical Necessity Reason Pt with a Central, PICC or Fol: Yes The following are medically ne: Central Line, Meng Catheter Reason for meng catheter: Strict I&O Subjective Review of Systems Ms. Marin is a 75-year-old female with prior medical history of CHF, COPD with home oxygen, gout, anxiety, diabetes mellitus, hyperlipidemia, hypertension, and PAD, who to [facility] with chief complaint of shortness of breath and back and midsternal non-radiating chest pain. At time of this evaluation the patient is intubated and sedated, history was taken from her daughter Susy at bedside and from medical record. Per her daughter, patient has been complaining of progressively worsening shortness of breath for the last 2 weeks associated with general malaise and orthopnea, describing very wet coughing sounds when her mother lays flat. She states that her mother began complaining of worsening shortness of breath associated with non-radiating midsternal chest pain which prompted her to call EMS. Per record, on seen she was saturating 74%, she was placed on CPAP with inspiration increasing to 88% on route to the emergency department. On evaluation in the ED, is afebrile, slightly hypertensive, and tachypneic saturating 81% which she was placed on BiPAP. Initial labs significant for leukocytosis of 11.3, with elevated hematocrit, and thrombocytopenia, Hyperkalemia, creatinine 4.09, BUN 46, and ABG significant for respiratory acidosis, troponins are negative, BNP 2515.41.Patient is influenza A and B positive. Chest x-ray shows moderate to severe pulmonary edema. Patient further deteriorated requiring intubation for respiratory distress. She was started on IV Lasix, IV methylprednisolone, hyperkalemia protocol, bicarbonate drip, and nitroglycerin drip. On my initial evaluation in the ED, the patient is sedated, intubated, and mechanically ventilated, currently not on pressors. Prior Medical history: CHF, COPD, gout, anxiety, type 2 diabetes mellitus, hyperlipidemia, hypertension, PAD, pulmonary hypertension Previous surgical history: Left leg stenting for PAD Allergies: Denies Social history: Daughter refers the patient smokes cigarettes with cessation approximately 20 years ago Home medications: Allopurinol, insulin, gabapentin, simvastatin, tadalafil 08/26/2025: Patient was seen in ICU. She is sedated, intubated, mechanically ventilated, not on pressors. CBC shows thrombocytopenia, persists with hyperkalemia, kidney function continues to worsen. UA is significant for UTI. She is being followed by nephrology who is currently recommending recommended a kidney ultrasound and hyperkalemia protocol to reduce serum potassium. She was evaluated by her dive superintendent, Dr. Bahena, who recommends echocardiogram, if inconclusive possible R/LHC. Tube feeds will be initiated. We will continue to monitor 08/27/25: Patient is seen and examined at bedside, , intubated, mechanically ventilated, not on pressors. She was evaluated by her dive superintendent, Dr. Bahena, who recommends echocardiogram, if inconclusive possible R/LHC. Tube feeds will be initiated. We will continue to monitor. 08/28/25 Sedation reduced today for neurologic assessment; patient remains sedated but arousable to stimulation. * IV fluid optimization initiated: Started 0.9% NS at 75 mL/hr, given concern for worsening COLE (Cr 4.26 today - 4.03 yesterday). * Strictly discontinued diuretics (Bumex/Lasix) due to elevated creatinine. * No peripheral edema today. * Left heart cath + right heart cath planned for tomorrow ONLY after renal function improves; currently high risk for contrast-induced nephropathy due to low GFR. * Pre-cath renal protection plan reviewed: * 250 mL NS bolus 1 hr prior * NS at 100 mL/hr for 5 hours after * WBC 13.6 (leukocytosis), Hgb 12.3, Plt 122 (mild thrombocytopenia). * ABG: pH 7.37, PCO2 40.2, PO2 58.3 (low), HCO2 23, O2 sat 87% (low). * Current ventilator settings: FiO2 40%, PEEP 5, TV 450 mL. 08/2025: Patient seen in the ICU. She is intubated, sedated, and mechanically ventilated. She is scheduled for L/R heart cath tomorrow, for which she is being given fluids in preparation for. She is afebrile, normocardic, and with stable BP occasionally high. WBCs are elevated and renal function is worsening. Chest Xray has shows minor improvement. Lasix has been discontinued by cardiology. Objective vital signs Vital Sign Date Time Temp Pulse Resp B/P (MAP) Pulse Ox O2 Delivery O2 Flow Rate FiO2 08/29/25 18:16 98.4 98 26 131/63 (85) 97 98.4 08/29/25 18:08 45 08/29/25 18:00 Mechanical Ventilator+ Total Intake and Output 08/28/25 08/28/25 08/29/25 15:00 23:00 07:00 Intake Total 310.0 ml 1126.5 ml 321.0 ml Output Total 800 ml 350 ml Balance 310.0 ml 326.5 ml -29.0 ml medications Current Medications Medications Dose Ordered Sig/Adri Route Start Time Stop Time Status Last Admin Dose Admin Albuterol 2.5 mg Q4HPRN PRN NEB 08/20/25 23:15 08/28/25 18:12 2.5 MG Ipratropium Alvarado 0.5 mg Q4HPRN PRN NEB 08/20/25 23:15 08/28/25 18:12 0.5 MG Multivit/Ca Carb/ B Cmplx/FA/Prenat 1 tab DAILY PO 08/21/25 10:00 08/29/25 10:03 1 TAB Ceftriaxone Sodium 50 ml @ 100 mls/hr DAILY@09 IV 08/21/25 09:00 08/29/25 09:06 100 MLS/HR Diagnostic Test (Pha) 1 strip ACHS 08/21/25 07:00 08/29/25 17:42 1 STRIP Insulin Human Regular ACHS SC 08/21/25 07:00 08/28/25 18:01 2 UNITS Dextrose 50 ml UD PRN IV 08/20/25 23:15 Sodium Chloride 10 ml Q8HR IV 08/21/25 06:00 08/29/25 14:24 10 ML Docusate Sodium 100 mg BIDPRN PRN PO 08/20/25 23:15 Acetaminophen 650 mg Q6HP PRN PO 08/20/25 23:15 Nitroglycerin 0.4 mg Q5MINP PRN SL 08/20/25 23:15 Morphine Sulfate 2 mg Q30M PRN IV 08/20/25 23:15 Midazolam HCl 100 ml @ 1 mls/hr Q24H IV 08/21/25 01:45 08/28/25 07:31 2 MLS/HR Pantoprazole Sodium 40 mg DAILY IV 08/22/25 10:00 08/29/25 10:03 40 MG Fentanyl Citrate 250 ml @ 2.5 mls/hr Q24H IV 08/22/25 17:15 08/28/25 23:07 10 MLS/HR Amlodipine Besylate 10 mg DAILY PO 08/25/25 12:45 08/29/25 10:03 10 MG Hydralazine HCl 10 mg Q8HR PO 08/26/25 22:00 08/29/25 14:24 10 MG Enteral Nutritional Formula 1,000 ml 45ML/HR GT 08/29/25 12:45 08/29/25 17:42 1,000 ML Examination General: Patient is intubated, sedated, mechanically ventilated, RASS -3, is reactive to painful stimulus HEENT: Normocephalic, atraumatic, pin point pupils sluggish, no EOM, pink conjunctiva, pink moist mucous membrane, ET tube in place, left internal jugular central line in place Respiratory/pulmonary: Bilateral chest expansion, improved breath sounds bilaterally Cardiovascular: Normal RRR Abdomen: Obese, Abdomen nondistended, normal bowel sounds, soft, no grimacing is observed on palpation, no palpable masses. Extremities: No deformities, edema of bilateral hands, trace bilateral pitting edema, skin of bilateral lower extremities are extremely dry, pulses 2+ bilateral lower extremities Skin: No rashes or pruritus, there is no sacral edema present at this time. Neurological: cough and gag reflex present laboratory and microbiology Laboratory Tests 08/29/25 04:02 Test 08/29/25 04:02 Range/Units Serum Glucose 99 74-106 mg/dL Microbiology Date/Time Source Procedure Growth Status 08/22/25 12:52 Urine - Meng Port Urine Culture - Final Complete 08/22/25 08:06 Nose MRSA Screen - Final Complete Problem List/Assessment/Plan Problem List/Assessment/Plan Neurology # Sedated - Versed 8 - Propofol: Discontinued - Fentanyl 150 Cardiovascular # Acute on chronic HFrEF # Pulmonary Edema - BNP 2515.41 --> 370 - Chest xray 08/20/2025: Moderate to severe pulmonary edema - Chest xray 08/21/2025: Cardiomegaly with pulmonary venous congestion and edema - Echocardiogram 01/14/2022: EF > 60%, Limited echo windows, mild TR, MR - New echocardiogram has been ordered, pending read - Cardiology: Pending echo, considered R/LHC if inconclusive , discontinue bumex drip - Laxis 40 mg IV daily - Per nephrology: Start bumex drip + albumin and D5W 75 cc/hour -- Bumex drip discontinued by cardiology -- D5W has been discontinued due to resolution of hypernatremia - Chest Xray shows worsening, for which lasix 40 mg BID will be initiated - Lasix has been discontinued by #Hypertension - Amlodipine 10 mg NG daily - Hydralazine #CAD - Patient will go to right and left heart cath tomorrow #Possible pulmonary hypertension Respiratory # Ventilator -intubated (08/21/2025) -On [facility] vent : VCAC Mode RR 24 TV 450ml, PEEP Of 5 and FiO2 of 40% # Acute hypercapnic respiratory failure secondary to pulmonary edema # Acute COPD exacerbation - Methylprednisolone 40 mg IV, discontinued - Ipratropium medneb - Albuterol medneb - Ceftriaxone 1 g IV daily #Influenza A and B - Tamiflu 30 mg BID suspension GI # Peptic ulcer prophylaxis -Pantoprazole 40 mg IV daily # Meng catheter Nephrology # COLE likely hemodynamically mediated/ VMN #Hyperkalemia, resolved - Per nephrology: trial of forced diuresis to enhance potassium excretion, serial chemistry panels, IV bicarbonate infusion, and avoidance of IV contrast if able, currently without urgent indication for kidney replacement therapy - Bicarbonate drip has been dc'd - Per Cardiology: Zoran . #Acute metabolic acidosis #Hypernatremia, resolved - D5W, discontinued Infectious disease # Influenza A and B Pneumonia - Tamiflu 30 mg BID suspension Hem/onc #Thrombocytopenia, improving - Monitor Endocrine #Type 2 diabetes mellitus - SSI -Accu cheks DVT prophylaxis: SCD PUD prophylaxis: Pantoprazole 40 mg IV daily Lines -L femoral Central line 08/20/2025 - discontinued on 08/29/2025 -L internal jugular central line 08/29/2025 -Meng catheter 08/20/2025 -ET tube: 08/21/2025 Nutrition: Nepro at a rate of 30 Drips during [facility] ventilation Versed 8 Fentanyl 150 Propofol: Discontinued Nitroglycerin: Discontinued Nicardipine drip: Discontinued Bicarbonate drip: Discontinued Critical care time 53 minutes excluding procedure. Code status discussed greater than 20 minutes: Full CODE STATUS. Family at bedside explained about the condition of the patient Plan discussed with Plan discussed with: Daughter, Other (Nurse) My Orders My Orders Orders - SALLY MINOR RESIDENT Procedure Category Date Status Time Chest Xray 1 View XY 08/29/25 Resulted 13:41 Complete Blood Count LAB 08/30/25 Verified 04:00 Basic Metabolic Panel LAB 08/30/25 Verified 04:00 Magnesium Sulfate ORDERS 08/30/25 Transmitted 04:00 Abg W/ Co-Ox RT 08/30/25 Logged 04:00 Chest Xray 1 View XY 08/30/25 Logged 04:00 Dietary Evaluation Review Comments: Nutrition Recommendation: 1) EN Nepro Carbsteady @ 30ml/hr x 24hr (goal) along with Pro-stat 1 pk BID. Water flush 50ml Q6H if allowed, adjust PRN. TF at goal volume along with propofol & Pro-stat provide 1777 kcal (100%), 89 gm protein (83%), and 723 ml free water(including flush). 2) TPN if NPO >7 days 3) Monitor NPO status, lab values, weight trend, and I/O Expected Outcomes/Goals: Intake to meet >75% estimated needs Lab values to improve FU 2-3 days SALLY MINOR RESIDENT Aug 29, 2025 18:43
[2025-08-30] VITALS (111 sets, daily range): BP systolic 83–152; BP diastolic 34–68; PULSE 61–80; RESP 0–27; TEMP 75.6–98.8; O2SAT 90–99
[2025-08-30 04:11] LABS: Mean Corpuscular Hemoglobin 18.7 pg (28.0-32.0); Nucleated Red Blood Cells % 0.1 %
[2025-08-30 04:14] LABS: Hematocrit 41.2 % (36.0-46.0); Hemoglobin 11.6 g/dL (12.2-16.2); Mean Corpuscular Volume 66.6 fL (80.0-100.0)
[2025-08-30 04:51] LABS: Anion Gap 12 (5-15); Carbon Dioxide 28 mmol/L (20-31); Chloride 105 mmol/L (98-107); Potassium 3.7 mmol/L (3.5-5.1)
[2025-08-30 04:53] LABS: Calcium 8.9 mg/dL (8.7-10.4)
[2025-08-30 04:57] LABS: BUN/Creatinine Ratio 14.0 (10.0-20.0); Sodium 145 mmol/L (136-145)
--- NOTE | 2025-08-30 04:57 | DVH ---
CHEST RADIOGRAPH Indication: Eval pulm edema Technique: Single frontal view of the chest was obtained COMPARISON: XY CHEST XRAY 1 VIEW on DOS: 08/29/25, XY CHEST XRAY 1 VIEW on DOS: 08/29/25, XY CHEST XRAY 1 VIEW on DOS: 08/28/25, XY CHEST XRAY 1 VIEW on DOS: 08/27/25, XY CHEST XRAY 1 VIEW on DOS: 08/26/25 FINDINGS: Lines and Tubes: Endotracheal tube, enteric catheter and left central venous catheter in satisfactory position. Lungs: Unchanged pulmonary vascular congestion. Pleura: No effusion. No pneumothorax. Cardiomediastinal contours: Unchanged cardiomegaly. Bones: Unremarkable IMPRESSION: Lines and tubes in satisfactory position. No significant interval change.
[2025-08-30 04:59] LABS: Blood Urea Nitrogen 69 mg/dL (9-23); Glucose 106 mg/dL (74-106)
[2025-08-30 05:28] LABS: Anisocytosis Moderate
--- NOTE | 2025-08-30 10:29 | DVHPNRES ---
Progress Note Date Seen: Aug 30, 2025 Resident Creating Document: ASLLY MINOR RESIDENT Has the PT tested + for MRSA If YES, has PT been informed?: No Medical Necessity Reason Pt with a Central, PICC or Fol: Yes The following are medically ne: Central Line, Meng Catheter Reason for meng catheter: Strict I&O Subjective Review of Systems Ms. Marin is a 75-year-old female with prior medical history of CHF, COPD with home oxygen, gout, anxiety, diabetes mellitus, hyperlipidemia, hypertension, and PAD, who to [facility] with chief complaint of shortness of breath and back and midsternal non-radiating chest pain. At time of this evaluation the patient is intubated and sedated, history was taken from her daughter Susy at bedside and from medical record. Per her daughter, patient has been complaining of progressively worsening shortness of breath for the last 2 weeks associated with general malaise and orthopnea, describing very wet coughing sounds when her mother lays flat. She states that her mother began complaining of worsening shortness of breath associated with non-radiating midsternal chest pain which prompted her to call EMS. Per record, on seen she was saturating 74%, she was placed on CPAP with inspiration increasing to 88% on route to the emergency department. On evaluation in the ED, is afebrile, slightly hypertensive, and tachypneic saturating 81% which she was placed on BiPAP. Initial labs significant for leukocytosis of 11.3, with elevated hematocrit, and thrombocytopenia, Hyperkalemia, creatinine 4.09, BUN 46, and ABG significant for respiratory acidosis, troponins are negative, BNP 2515.41.Patient is influenza A and B positive. Chest x-ray shows moderate to severe pulmonary edema. Patient further deteriorated requiring intubation for respiratory distress. She was started on IV Lasix, IV methylprednisolone, hyperkalemia protocol, bicarbonate drip, and nitroglycerin drip. On my initial evaluation in the ED, the patient is sedated, intubated, and mechanically ventilated, currently not on pressors. Prior Medical history: CHF, COPD, gout, anxiety, type 2 diabetes mellitus, hyperlipidemia, hypertension, PAD, pulmonary hypertension Previous surgical history: Left leg stenting for PAD Allergies: Denies Social history: Daughter refers the patient smokes cigarettes with cessation approximately 20 years ago Home medications: Allopurinol, insulin, gabapentin, simvastatin, tadalafil 08/26/2025: Patient was seen in ICU. She is sedated, intubated, mechanically ventilated, not on pressors. CBC shows thrombocytopenia, persists with hyperkalemia, kidney function continues to worsen. UA is significant for UTI. She is being followed by nephrology who is currently recommending recommended a kidney ultrasound and hyperkalemia protocol to reduce serum potassium. She was evaluated by her beater head, Dr. Bahena, who recommends echocardiogram, if inconclusive possible R/LHC. Tube feeds will be initiated. We will continue to monitor 08/27/25: Patient is seen and examined at bedside, , intubated, mechanically ventilated, not on pressors. She was evaluated by her beater head, Dr. Bahena, who recommends echocardiogram, if inconclusive possible R/LHC. Tube feeds will be initiated. We will continue to monitor. 08/28/25 Sedation reduced today for neurologic assessment; patient remains sedated but arousable to stimulation. * IV fluid optimization initiated: Started 0.9% NS at 75 mL/hr, given concern for worsening COLE (Cr 4.26 today - 4.03 yesterday). * Strictly discontinued diuretics (Bumex/Lasix) due to elevated creatinine. * No peripheral edema today. * Left heart cath + right heart cath planned for tomorrow ONLY after renal function improves; currently high risk for contrast-induced nephropathy due to low GFR. * Pre-cath renal protection plan reviewed: * 250 mL NS bolus 1 hr prior * NS at 100 mL/hr for 5 hours after * WBC 13.6 (leukocytosis), Hgb 12.3, Plt 122 (mild thrombocytopenia). * ABG: pH 7.37, PCO2 40.2, PO2 58.3 (low), HCO2 23, O2 sat 87% (low). * Current ventilator settings: FiO2 40%, PEEP 5, TV 450 mL. 08/29/2025: Patient seen in the ICU. She is intubated, sedated, and mechanically ventilated. She is scheduled for L/R heart cath tomorrow, for which she is being given fluids in preparation for. She is afebrile, normocardic, and with stable BP occasionally high. WBCs are elevated and renal function is worsening. Chest Xray has shows minor improvement. Lasix has been discontinued by cardiology. 08/30/2025: Patient seen in the ICU. She is intubated, sedated, and mechanically ventilated. She will go for L/R heart cath today. Fluids were given, another 250 cc has been ordered to be given 1 hour before the procedure. She is afebrile, normocardic, occasionally breathing over the vent, mostly hypertensive. WBCs are down trending, renal function is worsening. Both nephrology and cardiology are on board. Per nurse, patient has not had a bowel movement in 4 days, for which lactulose will be given. Per nephrology, patient is to be placed on NS at 100 cc/hr for 5 hours after procedure with 100 mg of Furosemide IV. Per Dr. Bahena, the patient is not to receive furosemide. We will continue to monitor. Objective vital signs Vital Sign Date Time Temp Pulse Resp B/P (MAP) Pulse Ox O2 Delivery O2 Flow Rate FiO2 08/30/25 10:14 128/52 08/30/25 10:06 67 24 95 45 08/30/25 09:02 98.4 209.1 08/30/25 08:00 Mechanical Ventilator+ Total Intake and Output 08/29/25 08/29/25 08/30/25 15:00 23:00 07:00 Intake Total 84.0 ml 445.0 ml 461.5 ml Output Total 425 ml 600 ml Balance 84.0 ml 20.0 ml -138.5 ml medications Current Medications Medications Dose Ordered Sig/Adri Route Start Time Stop Time Status Last Admin Dose Admin Albuterol 2.5 mg Q4HPRN PRN NEB 08/20/25 23:15 08/28/25 18:12 2.5 MG Ipratropium [place] 0.5 mg Q4HPRN PRN NEB 08/20/25 23:15 08/28/25 18:12 0.5 MG Multivit/Ca Carb/ B Cmplx/FA/Prenat 1 tab DAILY PO 08/21/25 10:00 08/30/25 10:15 1 TAB Ceftriaxone Sodium 50 ml @ 100 mls/hr DAILY@09 IV 08/21/25 09:00 08/30/25 08:17 100 MLS/HR Diagnostic Test (Pha) 1 strip ACHS 08/21/25 07:00 08/30/25 06:30 1 STRIP Insulin Human Regular ACHS SC 08/21/25 07:00 08/29/25 22:07 2 UNITS Dextrose 50 ml UD PRN IV 08/20/25 23:15 Sodium Chloride 10 ml Q8HR IV 08/21/25 06:00 08/30/25 05:59 10 ML Docusate Sodium 100 mg BIDPRN PRN PO 08/20/25 23:15 Acetaminophen 650 mg Q6HP PRN PO 08/20/25 23:15 Nitroglycerin 0.4 mg Q5MINP PRN SL 08/20/25 23:15 Morphine Sulfate 2 mg Q30M PRN IV 08/20/25 23:15 Midazolam HCl 100 ml @ 1 mls/hr Q24H IV 08/21/25 01:45 08/29/25 20:17 3 MLS/HR Pantoprazole Sodium 40 mg DAILY IV 08/22/25 10:00 08/30/25 10:15 40 MG Fentanyl Citrate 250 ml @ 2.5 mls/hr Q24H IV 08/22/25 17:15 08/29/25 22:00 7.5 MLS/HR Amlodipine Besylate 10 mg DAILY PO 08/25/25 12:45 08/30/25 10:14 10 MG Hydralazine HCl 10 mg Q8HR PO 08/26/25 22:00 08/30/25 05:58 10 MG Enteral Nutritional Formula 1,000 ml 45ML/HR GT 08/29/25 12:45 08/29/25 17:42 1,000 ML Examination General: Patient is intubated, sedated, mechanically ventilated, RASS -3, is reactive to painful stimulus HEENT: Normocephalic, atraumatic, pin point pupils sluggish, no EOM, pink conjunctiva, pink moist mucous membrane, ET tube in place, left internal jugular central line in place Respiratory/pulmonary: Bilateral chest expansion, improved breath sounds bilaterally Cardiovascular: Normal RRR Abdomen: Obese, Abdomen nondistended, normal bowel sounds, soft, no grimacing is observed on palpation, no palpable masses. Extremities: No deformities, edema of bilateral hands, edema has improved, skin of bilateral lower extremities are extremely dry, pulses 2+ bilateral lower extremities Skin: No rashes or pruritus, there is no sacral edema present at this time. Neurological: cough and gag reflex present laboratory and microbiology Laboratory Tests 08/30/25 03:31 Test 08/30/25 03:31 Range/Units Serum Glucose 106 74-106 mg/dL Microbiology Date/Time Source Procedure Growth Status 08/22/25 12:52 Urine - Meng Port Urine Culture - Final Complete 08/22/25 08:06 Nose MRSA Screen - Final Complete Problem List/Assessment/Plan Problem List/Assessment/Plan Neurology # Sedated - Versed 5 - Propofol: Discontinued - Fentanyl 75 Cardiovascular # Acute on chronic HFrEF # Pulmonary Edema - BNP 2515.41 --> 370 - Chest xray 08/20/2025: Moderate to severe pulmonary edema - Chest xray 08/21/2025: Cardiomegaly with pulmonary venous congestion and edema - Echocardiogram 01/14/2022: EF > 60%, Limited echo windows, mild TR, MR - New echocardiogram has been ordered, pending read - Cardiology: Pending echo, considered R/LHC if inconclusive , discontinue bumex drip - Laxis 40 mg IV daily - Per nephrology: Start bumex drip + albumin and D5W 75 cc/hour -- Bumex drip discontinued by cardiology -- D5W has been discontinued due to resolution of hypernatremia - Chest Xray shows worsening, for which lasix 40 mg BID will be initiated - Lasix has been discontinued by Cardiology #Hypertension - Amlodipine 10 mg NG daily - Hydralazine #CAD - Patient will go to right and left heart cath today #Possible pulmonary hypertension Respiratory # Ventilator -intubated (08/21/2025) -[facility] : VCAC Mode RR 24 TV 450ml, PEEP Of 5 and FiO2 of 40% # Acute hypercapnic respiratory failure secondary to pulmonary edema # Acute COPD exacerbation - Methylprednisolone 40 mg IV, discontinued - Ipratropium medneb - Albuterol medneb - Ceftriaxone 1 g IV daily #Influenza A and B - Tamiflu 30 mg BID suspension GI # Peptic ulcer prophylaxis -Pantoprazole 40 mg IV daily # Constipation - Lactulose 15 mL GT # Meng catheter Nephrology # COLE likely hemodynamically mediated/ VMN - NS 1000 cc bolus + 250 cc bolus in preparation for heart cath - NS 100cc/hr for 5 hours after procedure - Furosemide 100 mg IV after procedure - IR has been consulted to place catheter for dialysis #Hyperkalemia, resolved - Per nephrology: trial of forced diuresis to enhance potassium excretion, serial chemistry panels, IV bicarbonate infusion, and avoidance of IV contrast if able, currently without urgent indication for kidney replacement therapy - Bicarbonate drip has been dc'd - Per Cardiology: Zoran . #Acute metabolic acidosis #Hypernatremia, resolved - D5W, discontinued Infectious disease # Influenza A and B Pneumonia - Tamiflu 30 mg BID suspension Hem/onc #Thrombocytopenia, resolved - Monitor Endocrine #Type 2 diabetes mellitus - SSI -Accu cheks DVT prophylaxis: SCD PUD prophylaxis: Pantoprazole 40 mg IV daily Lines -L femoral Central line 08/20/2025 - discontinued on 08/29/2025 -L internal jugular central line 08/29/2025 -Meng catheter 08/20/2025 -ET tube: 08/21/2025 Nutrition: Nepro at a rate of 30 Drips during [facility], inch ventilation Versed 5 Fentanyl 75 Propofol: Discontinued Nitroglycerin: Discontinued Nicardipine drip: Discontinued Bicarbonate drip: Discontinued Critical care time 61 minutes excluding procedure. Code status discussed greater than 20 minutes: Full CODE STATUS. Family at bedside explained about the condition of the patient Plan discussed with Plan discussed with: Daughter, Other (Nurse) My Orders My Orders Orders - SALLY MINOR RESIDENT Procedure Category Date Status Time Chest Xray 1 View XY 08/29/25 Resulted 13:41 Magnesium Sulfate ORDERS 08/30/25 Transmitted 04:00 Abg W/ Co-Ox RT 08/30/25 Logged 04:00 Chest Xray 1 View XY 08/30/25 Resulted 04:00 Sodium Chloride 0.9% PHA 08/30/25 In Process 11:30 Lactulose Oral PHA 08/30/25 Verified 10:30 Dietary Evaluation Review Comments: Nutrition Recommendation: 1) EN Nepro Carbsteady @ 30ml/hr x 24hr (goal) along with Pro-stat 1 pk BID. Water flush 50ml Q6H if allowed, adjust PRN. TF at goal volume along with propofol & Pro-stat provide 1777 kcal (100%), 89 gm protein (83%), and 723 ml free water(including flush). 2) TPN if NPO >7 days 3) Monitor NPO status, lab values, weight trend, and I/O Expected Outcomes/Goals: Intake to meet >75% estimated needs Lab values to improve FU 2-3 days SALLY MINOR RESIDENT Aug 30, 2025 10:29
[2025-08-30] MEDS: LACTULOSE 20Gm/30ML SOLN PO ONE (11:33)
[2025-08-30] MEDS: SODIUM CHLORIDE 0.9% 250 ML IV ONE (11:33)
[2025-08-30] MEDS: HEPARIN IN NS 1000Units/500mL 1,500 ML ONE (12:23)
[2025-08-30] MEDS: LIDOCAINE 2%HCL (LOCAL ANESTH.) INJ 20ML MDV ONE (12:23)
[2025-08-30] MEDS: ANGIOMAX 250 MG VIAL IV ONE (12:46)
[2025-08-30] MEDS: SODIUM CHL 0.9% 0 ML ONE (12:46)
[2025-08-30] MEDS: IODIXANOL 320MG/ML 100ML BTL IV ONE (12:48)
[2025-08-30] MEDS ORDERED: FUROSEMIDE 100 MG/10ML VIAL IV ONE (13:30)
[2025-08-30] MEDS: IOHEXOL 350 MG/ML 100ML IJ ONE (13:58)
[2025-08-30] MEDS: SODIUM CHLORIDE 0.9% 500 ML IV ONE ×2 (13:58→16:15)
--- NOTE | 2025-08-30 14:17 | DVHPN2 ---
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 HYPERKALEMIA COPD HYPERLIPIDEMIA SIGN SX COMPLEX OF NOW WITH SOB CHEST PAIN RENAL FAILURE HYPERKALEMIA RESP FAILURE REQUIRING INTUBATION vital signs Vital Sign Date Time Temp Pulse Resp B/P (MAP) Pulse Ox O2 Delivery O2 Flow Rate FiO2 08/30/25 12:17 97.9 80 24 143/62 (89) 96 208.2 08/30/25 12:00 Mechanical Ventilator+ 45 45 Total Intake and Output 08/29/25 08/29/25 08/30/25 14:59 22:59 06:59 Intake Total 84.0 ml 445.0 ml 472.0 ml Output Total 425 ml 600 ml Balance 84.0 ml 20.0 ml -128.0 ml medications Current Medications Medications Dose Ordered Sig/Adri Route Start Time Stop Time Status Last Admin Dose Admin Albuterol 2.5 mg Q4HPRN PRN NEB 08/20/25 23:15 08/28/25 18:12 2.5 MG Ipratropium [place] 0.5 mg Q4HPRN PRN NEB 08/20/25 23:15 08/28/25 18:12 0.5 MG Multivit/Ca Carb/ B Cmplx/FA/Prenat 1 tab DAILY PO 08/21/25 10:00 08/30/25 10:15 1 TAB Ceftriaxone Sodium 50 ml @ 100 mls/hr DAILY@09 IV 08/21/25 09:00 08/30/25 08:17 100 MLS/HR Diagnostic Test (Pha) 1 strip ACHS 08/21/25 07:00 08/30/25 11:33 1 STRIP Insulin Human Regular ACHS SC 08/21/25 07:00 08/29/25 22:07 2 UNITS Dextrose 50 ml UD PRN IV 08/20/25 23:15 Sodium Chloride 10 ml Q8HR IV 08/21/25 06:00 08/30/25 05:59 10 ML Docusate Sodium 100 mg BIDPRN PRN PO 08/20/25 23:15 Acetaminophen 650 mg Q6HP PRN PO 08/20/25 23:15 Nitroglycerin 0.4 mg Q5MINP PRN SL 08/20/25 23:15 Midazolam HCl 100 ml @ 1 mls/hr Q24H IV 08/21/25 01:45 08/29/25 20:17 3 MLS/HR Pantoprazole Sodium 40 mg DAILY IV 08/22/25 10:00 08/30/25 10:15 40 MG Fentanyl Citrate 250 ml @ 2.5 mls/hr Q24H IV 08/22/25 17:15 08/29/25 22:00 7.5 MLS/HR Amlodipine Besylate 10 mg DAILY PO 08/25/25 12:45 08/30/25 10:14 10 MG Hydralazine HCl 10 mg Q8HR PO 08/26/25 22:00 08/30/25 05:58 10 MG Enteral Nutritional Formula 1,000 ml 45ML/HR GT 08/29/25 12:45 08/29/25 17:42 1,000 ML laboratory and microbiology Laboratory Tests 08/30/25 03:31 Test 08/30/25 03:31 Range/Units Serum Glucose 106 74-106 mg/dL Problem List ORGANIC HEART DISEASE CAD HFrEF HTN 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 HYPERKALEMIA COPD HYPERLIPIDEMIA SIGN SX COMPLEX OF NOW WITH SOB CHEST PAIN RENAL FAILURE HYPERKALEMIA RESP FAILURE REQUIRING INTUBATION Assessment/Plan CORRECT HYPERKALEMIA CONSIDER ECHO IF INCONCLUSIVE CONSIDER L/RHC BNP 370 ABX DC BUMEX START IVF AT 100 CC/HR ADD LOKELMA K+ CORRECTED REPEAT BNP WILL PROCEED WITH L/RHC ON FRIDAY POSITIVE FOR INFLUENZA A AND B POSITIVE START WEANING PT CON IV FLUID L/RHC NL CORONARIES EF >50% LVEDP 17mmHg RHC RA 15-27mmHg RV 62/17 PA`66/ 18 PCWP 17 SEVERE PUL HYPERTENSION START REVATIO 40 MG PO TID Dietary Evaluation Review Comments: Nutrition Recommendation: 1) EN Nepro Carbsteady @ 30ml/hr x 24hr (goal) along with Pro-stat 1 pk BID. Water flush 50ml Q6H if allowed, adjust PRN. TF at goal volume along with propofol & Pro-stat provide 1777 kcal (100%), 89 gm protein (83%), and 723 ml free water(including flush). 2) TPN if NPO >7 days 3) Monitor NPO status, lab values, weight trend, and I/O Expected Outcomes/Goals: Intake to meet >75% estimated needs Lab values to improve FU 2-3 days Plan discussed with: Patient Critical Care Time(min): 35 RAMIN GARCIA MD Aug 30, 2025 14:17
[2025-08-30] MEDS: HEPARIN SODIUM (PORCINE) 5000 UNITS/ML 1ML VIAL ONE (14:27)
--- NOTE | 2025-08-30 14:50 | DVHOP ---
DATE OF SURGERY: 08/30/2025 PROCEDURES PERFORMED: * Selective left and right coronary angiography. * Ventriculogram. * [place]-Den[place] catheter. * Right coronary angiography. * Conscious sedation. DESCRIPTION OF PROCEDURE: The patient was prepped and draped in a sterile condition. 1% Xylocaine was used to anesthetize the right groin. Using Cook needle, right femoral artery was engaged. Using Seldinger technique, a 6-[place] sheath was placed in the right femoral artery. Using it similarly, a 6-[place] sheath was introduced into the right femoral vein. Using a 6-[place] balloon-tipped thermodilutional catheter, right-sided pressure tracings were obtained. Using a 6-[place] JL4 catheter and a 6-[place] JR4 catheter, selective left and right coronary angiographies were performed. Using a 6-[place] pigtail catheter, a ventriculogram was done. Total contrast was 15 mL of Visipaque. There were no complications. The patient tolerated the procedure well. RESULTS: Coronary angiography revealed: * Left main patent. * Left anterior descending artery was patent. * Circumflex was patent. * Right coronary artery was patent. * Left ventricular function was preserved with an estimated EF of around 50-55%. * LVEDP was 18 mmHg with no gradient across the aortic valve. Right heart catheterization showed: * RA pressure of 18. * RV pressure of 62/16. * PA pressure of 66/18. * Capillary wedge pressure of 17 mmHg. CONCLUSION: Thus, the patient with severe pulmonary hypertension, normal coronary anatomy, normal left ventricular ejection fraction with mild elevation of LVEDP as well. At this time, the patient's primary issue is primary pulmonary hypertension. Aggressive anti-pulmonary hypertensive therapy should be implemented. The patient has end-stage renal disease. Dialysis will be helpful as well. Josef Heck MD [facility]/ TID: [id number] RECEIPT: [id number]
--- NOTE | 2025-08-30 14:53 | DVHOP ---
DATE OF SURGERY: 08/30/2025 PROCEDURE TO BE PERFORMED: Frank catheter insertion via the right groin approach. INDICATIONS: The patient with end-stage renal disease, now has metabolic acidosis, uremic symptoms, now to undergo dialysis. Access will be maintained in the right groin. The patient eventually required a tunnel catheter on the left subclavian. We elected not to use the subclavian now for the Frank catheter since the patient would require that access. If we were to intervene the left subclavian now, it will be difficult to insert the tunnel catheter and then we will have highly incidence of complication, bleeding, as well as infection. The patient has a triple lumen in the right subclavian at this time. DESCRIPTION OF PROCEDURE: The patient was prepped and draped in a sterile fashion. 1% Xylocaine used to anesthetize the right groin. Using a Cook needle, right femoral vein was engaged with Seldinger technique. A guidewire was then appropriately positioned. Then, serial dilatation was done using an obturator. Following the dilatation up to a 10-[place] sheath, then a 10-[place] x 27 mm Frank catheter was placed into the right femoral secured using 2-0 silk. There were no complications. The patient tolerated the procedure well. RESULTS: The patient with end-stage renal disease, now successful implantation of right femoral vein Frank catheter placement. Josef Heck MD [place] [place]: [id number] RECEIPT: [id number]
--- NOTE | 2025-08-30 15:09 | DVHPN2 ---
Progress Note Date Seen: Aug 30, 2025 Has the PT tested + for MRSA If YES, has PT been informed?: No Medical Necessity Reason Pt with a Central, PICC or Fol: Yes The following are medically ne: Central Line, Meng Catheter Reason for meng catheter: Strict I&O Subjective Review of Systems: RESPIRATORY:Abnormal (Intubated on ventilator) Other Systems: Patient seen and examined by myself today in f/u, patient remained intubated on ventilator Objective vital signs Vital Sign Date Time Temp Pulse Resp B/P (MAP) Pulse Ox O2 Delivery O2 Flow Rate FiO2 08/30/25 14:49 122/52 08/30/25 14:27 71 24 93 45 08/30/25 12:17 97.9 208.2 08/30/25 12:00 Mechanical Ventilator+ Total Intake and Output 08/29/25 08/29/25 08/30/25 15:00 23:00 07:00 Intake Total 84.0 ml 445.0 ml 472.0 ml Output Total 425 ml 600 ml Balance 84.0 ml 20.0 ml -128.0 ml medications Current Medications Medications Dose Ordered Sig/Adri Route Start Time Stop Time Status Last Admin Dose Admin Albuterol 2.5 mg Q4HPRN PRN NEB 08/20/25 23:15 08/28/25 18:12 2.5 MG Ipratropium [place] 0.5 mg Q4HPRN PRN NEB 08/20/25 23:15 08/28/25 18:12 0.5 MG Multivit/Ca Carb/ B Cmplx/FA/Prenat 1 tab DAILY PO 08/21/25 10:00 08/30/25 10:15 1 TAB Ceftriaxone Sodium 50 ml @ 100 mls/hr DAILY@09 IV 08/21/25 09:00 08/30/25 08:17 100 MLS/HR Diagnostic Test (Pha) 1 strip ACHS 08/21/25 07:00 08/30/25 11:33 1 STRIP Insulin Human Regular ACHS SC 08/21/25 07:00 08/29/25 22:07 2 UNITS Dextrose 50 ml UD PRN IV 08/20/25 23:15 Sodium Chloride 10 ml Q8HR IV 08/21/25 06:00 08/30/25 14:49 10 ML Docusate Sodium 100 mg BIDPRN PRN PO 08/20/25 23:15 Acetaminophen 650 mg Q6HP PRN PO 08/20/25 23:15 Nitroglycerin 0.4 mg Q5MINP PRN SL 08/20/25 23:15 Hold Midazolam HCl 100 ml @ 1 mls/hr Q24H IV 08/21/25 01:45 08/29/25 20:17 3 MLS/HR Pantoprazole Sodium 40 mg DAILY IV 08/22/25 10:00 08/30/25 10:15 40 MG Fentanyl Citrate 250 ml @ 2.5 mls/hr Q24H IV 08/22/25 17:15 08/29/25 22:00 7.5 MLS/HR Amlodipine Besylate 10 mg DAILY PO 08/25/25 12:45 08/30/25 10:14 10 MG Hydralazine HCl 10 mg Q8HR PO 08/26/25 22:00 08/30/25 14:49 10 MG Enteral Nutritional Formula 1,000 ml 45ML/HR GT 08/29/25 12:45 08/30/25 14:49 1,000 ML Sildenafil Citrate 40 mg TID@08,14,20 PO 08/30/25 14:51 Examination: LUNGS:Normal, CVS:Normal, MSK:Normal laboratory and microbiology Laboratory Tests 08/30/25 03:31 Test 08/30/25 03:31 Range/Units Serum Glucose 106 74-106 mg/dL Microbiology Date/Time Source Procedure Growth Status 08/22/25 12:52 Urine - Meng Port Urine Culture - Final Complete 08/22/25 08:06 Nose MRSA Screen - Final Complete Problem List/Assessment/Plan Problem List/Assessment/Plan Acute kidney injury superimposed on advanced Chronic Kidney Disease stage 4 secondary hemodynamic mediated, ATN, FeNa > 2%, IV contrast, requiring intermittent HD Acute hypoxic respiratory failure, patient intubated on ventilator Community-acquired pneumonia Diabetes mellitus type 2 Nephrotic syndrome secondary to underlying diabetic nephropathy Hyperkalemia Hypernatremia due to insensible water loss Recommendations Kidney function slightly worsened today I discussed risk and benefit of hemodialysis with the patient's sister at the bedside and she consented for Frank catheter Hemodialysis Hyperkalemia resolved Hypernatremia appropriately resolved Strict I&Os kidney ultrasound reported within normal limit IV antibiotics Avoid nephrotoxic medications We will continue to follow Plan discussed with: Other (Nurse) My Orders My Orders Orders - JEANNE WHITE MD Procedure Category Date Status Time * Radiologist Consult CONS 08/30/25 Transmitted 11:11 Dietary Evaluation Review Comments: Nutrition Recommendation: 1) EN Nepro Carbsteady @ 30ml/hr x 24hr (goal) along with Pro-stat 1 pk BID. Water flush 50ml Q6H if allowed, adjust PRN. TF at goal volume along with propofol & Pro-stat provide 1777 kcal (100%), 89 gm protein (83%), and 723 ml free water(including flush). 2) TPN if NPO >7 days 3) Monitor NPO status, lab values, weight trend, and I/O Expected Outcomes/Goals: Intake to meet >75% estimated needs Lab values to improve FU 2-3 days JEANNE WHITE MD Aug 30, 2025 15:09
[2025-08-30] MEDS: SILDENAFIL CITRATE 20 MG TAB PO SCH (15:26)
[2025-08-30 15:44] LABS: Base Excess 1.2 mmol/L (-2.0-3.0)
--- NOTE | 2025-08-30 20:41 | DVH ---
EXAM: XY CHEST PORTABLE HISTORY: NG TUBE PLACEMENT TECHNIQUE: 1 view of the chest COMPARISON: XY CHEST XRAY 1 VIEW on DOS: 08/30/25 FINDINGS/IMPRESSION: LUNGS: Bibasilar hazy alveolar opacities with small bilateral pleural effusions and central pulmonary vascular congestion with peripheral interstitial edema. MEDIASTINUM: Possible mild cardiomegaly. BONES: No acute osseous abnormality. OTHER: Enteric tube extending into the stomach
[2025-08-30] MEDS: SILDENAFIL CITRATE 20 MG TAB NG SCH (20:55)
[2025-08-31] VITALS (113 sets, daily range): BP systolic 92–169; BP diastolic 39–104; PULSE 65–98; RESP 0–30; TEMP 98–99.1; O2SAT 91–100
[2025-08-31 04:05] LABS: Hemoglobin 10.8 g/dL (12.2-16.2); Mean Corpuscular Hemoglobin 19.1 pg (28.0-32.0); Nucleated Red Blood Cells % 0.1 %
[2025-08-31 04:07] LABS: Hematocrit 37.4 % (36.0-46.0); Mean Corpuscular Volume 66.3 fL (80.0-100.0)
[2025-08-31 04:21] LABS: Chloride 107 mmol/L (98-107); Potassium 3.7 mmol/L (3.5-5.1)
[2025-08-31 04:22] LABS: Anion Gap 13 (5-15); Carbon Dioxide 25 mmol/L (20-31)
[2025-08-31 04:26] LABS: Calcium 8.5 mg/dL (8.7-10.4); Sodium 145 mmol/L (136-145)
[2025-08-31 04:27] LABS: BUN/Creatinine Ratio 13.8 (10.0-20.0); Glucose 98 mg/dL (74-106)
[2025-08-31 04:28] LABS: Magnesium 2.1 mg/dL (1.6-2.6)
[2025-08-31 04:31] LABS: Blood Urea Nitrogen 72 mg/dL (9-23)
--- NOTE | 2025-08-31 05:14 | DVH ---
CHEST RADIOGRAPH Indication: Intubated Technique: Single frontal view of the chest was obtained Comparison: XY CHEST PORTABLE on DOS: 08/30/25 FINDINGS: Lines and Tubes: The enteric tube courses below the left hemidiaphragm and the tip extends outside the field of view. The endotracheal tube terminates 4.4 cm above the delfino. There is a left central venous catheter with its tip terminating in the superior vena cava. Lungs: Bilateral interstitial prominence and airspace opacities are not significantly changed. Pleura: Bilateral pleural effusions are similar to prior study. No pneumothorax. Cardiomediastinal contours: Unremarkable Bones: No acute osseous abnormality. IMPRESSION: 1. Similar position of the support lines and tubes. 2. No significant change in bilateral interstitial and airspace opacities and bilateral pleural effusions.
[2025-08-31 07:40] LABS: Base Excess -3.6 mmol/L (-2.0-3.0)
[2025-08-31 11:17] LABS: Hepatitis B Surface Antigen Negative (Negative); Hepatitis C Antibody Negative (Negative)
--- NOTE | 2025-08-31 13:26 | DVHPN2 ---
Progress Note Date Seen: Aug 31, 2025 Has the PT tested + for MRSA If YES, has PT been informed?: No Medical Necessity Reason Pt with a Central, PICC or Fol: Yes The following are medically ne: Central Line, Meng Catheter Reason for meng catheter: Strict I&O Subjective Review of Systems: RESPIRATORY:Abnormal Other Systems: Patient seen and examined by myself today in follow-up, patient remained intubated on ventilator Patient examined hemodialysis, blood pressure stable Objective vital signs Vital Sign Date Time Temp Pulse Resp B/P (MAP) Pulse Ox O2 Delivery O2 Flow Rate FiO2 08/31/25 11: 71 24 130/53 (78) 97 45 08/31/25 10:00 Mechanical Ventilator+ 08/31/25 04:45 98.4 98.4 Total Intake and Output 08/30/25 08/30/25 08/31/25 15:00 23:00 07:00 Intake Total 176.5 ml 1245.0 ml 463.0 ml Output Total 250 ml 80 ml Balance 176.5 ml 995.0 ml 383.0 ml medications Current Medications Medications Dose Ordered Sig/Adri Route Start Time Stop Time Status Last Admin Dose Admin Albuterol 2.5 mg Q4HPRN PRN NEB 08/20/25 23:15 08/28/25 18:12 2.5 MG Ipratropium [place] 0.5 mg Q4HPRN PRN NEB 08/20/25 23:15 08/28/25 18:12 0.5 MG Multivit/Ca Carb/ B Cmplx/FA/Prenat 1 tab DAILY PO 08/21/25 10:00 08/31/25 10:32 1 TAB Ceftriaxone Sodium 50 ml @ 100 mls/hr DAILY@09 IV 08/21/25 09:00 08/31/25 10:32 100 MLS/HR Diagnostic Test (Pha) 1 strip ACHS 08/21/25 07:00 08/31/25 06:31 1 STRIP Insulin Human Regular ACHS SC 08/21/25 07:00 08/29/25 22:07 2 UNITS Dextrose 50 ml UD PRN IV 08/20/25 23:15 Sodium Chloride 10 ml Q8HR IV 08/21/25 06:00 08/31/25 05:12 10 ML Docusate Sodium 100 mg BIDPRN PRN PO 08/20/25 23:15 Acetaminophen 650 mg Q6HP PRN PO 08/20/25 23:15 Nitroglycerin 0.4 mg Q5MINP PRN SL 08/20/25 23:15 Hold Midazolam HCl 100 ml @ 1 mls/hr Q24H IV 08/21/25 01:45 08/29/25 20:17 3 MLS/HR Pantoprazole Sodium 40 mg DAILY IV 08/22/25 10:00 08/31/25 10:32 40 MG Fentanyl Citrate 250 ml @ 2.5 mls/hr Q24H IV 08/22/25 17:15 08/31/25 05:11 7.5 MLS/HR Amlodipine Besylate 10 mg DAILY PO 08/25/25 12:45 08/30/25 10:14 10 MG Hydralazine HCl 10 mg Q8HR PO 08/26/25 22:00 08/30/25 14:49 10 MG Enteral Nutritional Formula 1,000 ml 45ML/HR GT 08/29/25 12:45 08/30/25 14:49 1,000 ML Sildenafil Citrate 20 mg TID@08,14,20 NG 08/30/25 20:00 08/30/25 20:55 20 MG Albumin Human 50 ml @ 100 mls/hr PRN IV 08/31/25 08:00 09/01/25 08:29 Examination: LUNGS:Normal, CVS:Normal, MSK:Normal laboratory and microbiology Laboratory Tests 08/31/25 02:48 Test 08/31/25 02:48 Range/Units Serum Glucose 98 74-106 mg/dL Microbiology Date/Time Source Procedure Growth Status 08/22/25 12:52 Urine - Meng Port Urine Culture - Final Complete 08/22/25 08:06 Nose MRSA Screen - Final Complete Problem List/Assessment/Plan Problem List/Assessment/Plan Acute kidney injury superimposed on advanced Chronic Kidney Disease stage 4 secondary hemodynamic mediated, ATN, FeNa > 2%, IV contrast, requiring intermittent HD Acute hypoxic respiratory failure, patient intubated on ventilator Community-acquired pneumonia Diabetes mellitus type 2 Nephrotic syndrome secondary to underlying diabetic nephropathy Hyperkalemia Hypernatremia due to insensible water loss Recommendations Continue with UF 1-2 L as tolerated Epogen 4000 subQ 3 times weekly Hyperkalemia resolved Hypernatremia appropriately resolved Strict I&Os kidney ultrasound reported within normal limit IV antibiotics Avoid nephrotoxic medications We will continue to follow Plan discussed with: Other (Nurse) My Orders My Orders Orders - JEANNE WHITE MD Procedure Category Date Status Time Hemodialysis Orders ORDERS 08/31/25 Transmitted 07:00 Dialysis Nursing CHASTITY 08/31/25 In Process Message 07:00 Document Fluid Input CHASTITY 08/31/25 In Process And Outpu 07:00 Albumin 25% (Albutein) PHA 08/31/25 In Process 08:00 Dietary Evaluation Review Comments: Nutrition Recommendation: 1) EN Nepro Carbsteady @ 30ml/hr x 24hr (goal) along with Pro-stat 1 pk BID. Water flush 50ml Q6H if allowed, adjust PRN. TF at goal volume along with propofol & Pro-stat provide 1777 kcal (100%), 89 gm protein (83%), and 723 ml free water(including flush). 2) TPN if NPO >7 days 3) Monitor NPO status, lab values, weight trend, and I/O Expected Outcomes/Goals: Intake to meet >75% estimated needs Lab values to improve FU 2-3 days JEANNE WHITE MD Aug 31, 2025 13:26
--- NOTE | 2025-08-31 13:29 | DVHPNRES ---
Progress Note Date Seen: Aug 31, 2025 Resident Creating Document: SALLY MINOR RESIDENT Has the PT tested + for MRSA If YES, has PT been informed?: No Medical Necessity Reason Pt with a Central, PICC or Fol: Yes The following are medically ne: Central Line, Meng Catheter Reason for meng catheter: Strict I&O Subjective Review of Systems Ms. Marin is a 75-year-old female with prior medical history of CHF, COPD with home oxygen, gout, anxiety, diabetes mellitus, hyperlipidemia, hypertension, and PAD, who to [facility] with chief complaint of shortness of breath and back and midsternal non-radiating chest pain. At time of this evaluation the patient is intubated and sedated, history was taken from her daughter Susy at bedside and from medical record. Per her daughter, patient has been complaining of progressively worsening shortness of breath for the last 2 weeks associated with general malaise and orthopnea, describing very wet coughing sounds when her mother lays flat. She states that her mother began complaining of worsening shortness of breath associated with non-radiating midsternal chest pain which prompted her to call EMS. Per record, on seen she was saturating 74%, she was placed on CPAP with inspiration increasing to 88% on route to the emergency department. On evaluation in the ED, is afebrile, slightly hypertensive, and tachypneic saturating 81% which she was placed on BiPAP. Initial labs significant for leukocytosis of 11.3, with elevated hematocrit, and thrombocytopenia, Hyperkalemia, creatinine 4.09, BUN 46, and ABG significant for respiratory acidosis, troponins are negative, BNP 2515.41.Patient is influenza A and B positive. Chest x-ray shows moderate to severe pulmonary edema. Patient further deteriorated requiring intubation for respiratory distress. She was started on IV Lasix, IV methylprednisolone, hyperkalemia protocol, bicarbonate drip, and nitroglycerin drip. On my initial evaluation in the ED, the patient is sedated, intubated, and mechanically ventilated, currently not on pressors. Prior Medical history: CHF, COPD, gout, anxiety, type 2 diabetes mellitus, hyperlipidemia, hypertension, PAD, pulmonary hypertension Previous surgical history: Left leg stenting for PAD Allergies: Denies Social history: Daughter refers the patient smokes cigarettes with cessation approximately 20 years ago Home medications: Allopurinol, insulin, gabapentin, simvastatin, tadalafil 08/26/2025: Patient was seen in ICU. She is sedated, intubated, mechanically ventilated, not on pressors. CBC shows thrombocytopenia, persists with hyperkalemia, kidney function continues to worsen. UA is significant for UTI. She is being followed by nephrology who is currently recommending recommended a kidney ultrasound and hyperkalemia protocol to reduce serum potassium. She was evaluated by her data processing systems project planner, Dr. Bahena, who recommends echocardiogram, if inconclusive possible R/LHC. Tube feeds will be initiated. We will continue to monitor 08/27/25: Patient is seen and examined at bedside, , intubated, mechanically ventilated, not on pressors. She was evaluated by her data processing systems project planner, Dr. Bahena, who recommends echocardiogram, if inconclusive possible R/LHC. Tube feeds will be initiated. We will continue to monitor. 08/28/25 Sedation reduced today for neurologic assessment; patient remains sedated but arousable to stimulation. * IV fluid optimization initiated: Started 0.9% NS at 75 mL/hr, given concern for worsening COLE (Cr 4.26 today - 4.03 yesterday). * Strictly discontinued diuretics (Bumex/Lasix) due to elevated creatinine. * No peripheral edema today. * Left heart cath + right heart cath planned for tomorrow ONLY after renal function improves; currently high risk for contrast-induced nephropathy due to low GFR. * Pre-cath renal protection plan reviewed: * 250 mL NS bolus 1 hr prior * NS at 100 mL/hr for 5 hours after * WBC 13.6 (leukocytosis), Hgb 12.3, Plt 122 (mild thrombocytopenia). * ABG: pH 7.37, PCO2 40.2, PO2 58.3 (low), HCO2 23, O2 sat 87% (low). * Current ventilator settings: FiO2 40%, PEEP 5, TV 450 mL. 08/29/2025: Patient seen in the ICU. She is intubated, sedated, and mechanically ventilated. She is scheduled for L/R heart cath tomorrow, for which she is being given fluids in preparation for. She is afebrile, normocardic, and with stable BP occasionally high. WBCs are elevated and renal function is worsening. Chest Xray has shows minor improvement. Lasix has been discontinued by cardiology. 08/30/2025: Patient seen in the ICU. She is intubated, sedated, and mechanically ventilated. She will go for L/R heart cath today. Fluids were given, another 250 cc has been ordered to be given 1 hour before the procedure. She is afebrile, normocardic, occasionally breathing over the vent, mostly hypertensive. WBCs are down trending, renal function is worsening. Both nephrology and cardiology are on board. Per nurse, patient has not had a bowel movement in 4 days, for which lactulose will be given. Per nephrology, patient is to be placed on NS at 100 cc/hr for 5 hours after procedure with 100 mg of Furosemide IV. Per Dr. Bahena, the patient is not to receive furosemide. We will continue to monitor. 08/31/2025: Patient seen in the ICU. She is intubated, sedated, and mechanically ventilated. She is afebrile, normocardic, with soft blood pressure. Labs are significant with worsening kidney function. She underwent L/R heart cath yesterday. Findings significant with severe pulmonary hypertension pulmonary artery pressure 66/18 mmHg and capillary wedge of 17 mmHg, she was started on sildenafil by Dr. Bahena. She will undergo hemodialysis today. We will continue to monitor. Objective vital signs Vital Sign Date Time Temp Pulse Resp B/P (MAP) Pulse Ox O2 Delivery O2 Flow Rate FiO2 08/31/25 11:25 71 24 130/53 (78) 97 45 08/31/25 10:00 Mechanical Ventilator+ 08/31/25 04:45 98.4 98.4 Total Intake and Output 08/30/25 08/30/25 08/31/25 15:00 23:00 07:00 Intake Total 176.5 ml 1245.0 ml 463.0 ml Output Total 250 ml 80 ml Balance 176.5 ml 995.0 ml 383.0 ml medications Current Medications Medications Dose Ordered Sig/Adri Route Start Time Stop Time Status Last Admin Dose Admin Albuterol 2.5 mg Q4HPRN PRN NEB 08/20/25 23:15 08/28/25 18:12 2.5 MG Ipratropium [place] 0.5 mg Q4HPRN PRN NEB 08/20/25 23:15 08/28/25 18:12 0.5 MG Multivit/Ca Carb/ B Cmplx/FA/Prenat 1 tab DAILY PO 08/21/25 10:00 08/31/25 10:32 1 TAB Ceftriaxone Sodium 50 ml @ 100 mls/hr DAILY@09 IV 08/21/25 09:00 08/31/25 10:32 100 MLS/HR Diagnostic Test (Pha) 1 strip ACHS 08/21/25 07:00 08/31/25 06:31 1 STRIP Insulin Human Regular ACHS SC 08/21/25 07:00 08/29/25 22:07 2 UNITS Dextrose 50 ml UD PRN IV 08/20/25 23:15 Sodium Chloride 10 ml Q8HR IV 08/21/25 06:00 08/31/25 05:12 10 ML Docusate Sodium 100 mg BIDPRN PRN PO 08/20/25 23:15 Acetaminophen 650 mg Q6HP PRN PO 08/20/25 23:15 Nitroglycerin 0.4 mg Q5MINP PRN SL 08/20/25 23:15 Hold Midazolam HCl 100 ml @ 1 mls/hr Q24H IV 08/21/25 01:45 08/29/25 20:17 3 MLS/HR Pantoprazole Sodium 40 mg DAILY IV 08/22/25 10:00 08/31/25 10:32 40 MG Fentanyl Citrate 250 ml @ 2.5 mls/hr Q24H IV 08/22/25 17:15 08/31/25 05:11 7.5 MLS/HR Amlodipine Besylate 10 mg DAILY PO 08/25/25 12:45 08/30/25 10:14 10 MG Hydralazine HCl 10 mg Q8HR PO 08/26/25 22:00 08/30/25 14:49 10 MG Enteral Nutritional Formula 1,000 ml 45ML/HR GT 08/29/25 12:45 08/30/25 14:49 1,000 ML Sildenafil Citrate 20 mg TID@08,14,20 NG 08/30/25 20:00 08/30/25 20:55 20 MG Albumin Human 50 ml @ 100 mls/hr PRN IV 08/31/25 08:00 09/01/25 08:29 Examination General: Patient is intubated, sedated, mechanically ventilated, RASS -3, is reactive to painful stimulus HEENT: Normocephalic, atraumatic, pin point pupils sluggish, no EOM, pink conjunctiva, pink moist mucous membrane, ET tube in place, left internal jugular central line in place, orogastric tube in palce Respiratory/pulmonary: Bilateral chest expansion, improved breath sounds bilaterally Cardiovascular: Normal RRR Abdomen: Obese, Abdomen nondistended, normal bowel sounds, soft, no grimacing is observed on palpation, no palpable masses. Extremities: No deformities, edema of bilateral hands, edema has improved, skin of bilateral lower extremities are extremely dry, pulses 2+ bilateral lower extremities, presence of Frank catheter in right groin region Skin: No rashes or pruritus, there is no sacral edema present at this time. Neurological: cough and gag reflex present laboratory and microbiology Laboratory Tests 08/31/25 02:48 Test 08/31/25 02:48 Range/Units Serum Glucose 98 74-106 mg/dL Microbiology Date/Time Source Procedure Growth Status 08/22/25 12:52 Urine - Meng Port Urine Culture - Final Complete 08/22/25 08:06 Nose MRSA Screen - Final Complete Problem List/Assessment/Plan Problem List/Assessment/Plan Neurology # Sedated - Versed 5 - Propofol: Discontinued - Fentanyl 75 Cardiovascular # Acute on chronic HFrEF # Pulmonary Edema - BNP 2515.41 --> 370 - Chest xray 08/20/2025: Moderate to severe pulmonary edema - Chest xray 08/21/2025: Cardiomegaly with pulmonary venous congestion and edema - Echocardiogram 01/14/2022: EF > 60%, Limited echo windows, mild TR, MR - New echocardiogram has been ordered, pending read - Cardiology: Pending echo, considered R/LHC if inconclusive , discontinue bumex drip - Laxis 40 mg IV daily - Per nephrology: Start bumex drip + albumin and D5W 75 cc/hour -- Bumex drip discontinued by cardiology -- D5W has been discontinued due to resolution of hypernatremia - Chest Xray shows worsening, for which lasix 40 mg BID will be initiated - Lasix has been discontinued by Cardiology #Hypertension - Amlodipine 10 mg NG daily - Hydralazine #CAD - R/L heart catheterization 08/30/2025: Left main, LAD and circumflex are patent, RCA patent, E is 50-55% #Severe pulmonary hypertension - R/L heart catheterization 08/30/2025: RA pressure 18 mmHg, RV pressure 62/16 mmHg, pulmonary artery pressure 66/18 mmHg, capillary wedge pressure: 17 mmHg - Per cardiology: Sildenafil 20mg NG TID, originally 40 but this was lowered Respiratory # Ventilator -intubated (08/21/2025) -On [facility] vent : VCAC Mode RR 24 TV 450ml, PEEP Of 5 and FiO2 of 40% # Acute hypercapnic respiratory failure secondary to pulmonary edema # Acute COPD exacerbation - Methylprednisolone 40 mg IV, discontinued - Ipratropium medneb - Albuterol medneb - Ceftriaxone 1 g IV daily #Influenza A and B - Tamiflu 30 mg BID suspension GI # Peptic ulcer prophylaxis -Pantoprazole 40 mg IV daily # Constipation - Lactulose 15 mL GT # Meng catheter Nephrology # COLE on CKD likely hemodynamically mediated/ VMN - NS 1000 cc bolus + 250 cc bolus in preparation for heart cath - NS 100cc/hr for 5 hours after procedure - Furosemide 100 mg IV after procedure, this was discontinued at the request of cardiology - Dialysis catheter placed by Dr. Bahena in right femoral region - Hemodialysis: 08/31 #Hyperkalemia, resolved - Per nephrology: trial of forced diuresis to enhance potassium excretion, serial chemistry panels, IV bicarbonate infusion, and avoidance of IV contrast if able, currently without urgent indication for kidney replacement therapy - Bicarbonate drip has been dc'd - Per Cardiology: Zoran . #Acute metabolic acidosis #Hypernatremia, resolved - D5W, discontinued Infectious disease # Influenza A and B Pneumonia - Tamiflu 30 mg BID suspension Hem/onc #Thrombocytopenia, resolved - Monitor Endocrine #Type 2 diabetes mellitus - SSI -Accu cheks DVT prophylaxis: SCD PUD prophylaxis: Pantoprazole 40 mg IV daily Lines -L femoral Central line 08/20/2025 - discontinued on 08/29/2025 -L internal jugular central line 08/29/2025 -Meng catheter 08/20/2025 -ET tube: 08/21/2025 Nutrition: Nepro at a rate of 30 Drips during [facility] ventilation Versed 5 Fentanyl 75 Propofol: Discontinued Nitroglycerin: Discontinued Nicardipine drip: Discontinued Bicarbonate drip: Discontinued Critical care time 72 minutes excluding procedure. Code status discussed greater than 20 minutes: Full CODE STATUS. Family at bedside explained about the condition of the patient Plan discussed with Plan discussed with: Daughter, Other (Nurse) My Orders My Orders Orders - SALLY MINOR RESIDENT Procedure Category Date Status Time Chest Portable XY 08/30/25 Resulted 20:11 Abg W/ Co-Ox RT 08/31/25 Logged 04:00 Chest Xray 1 View XY 08/31/25 Resulted 04:00 Dietary Evaluation Review Comments: Nutrition Recommendation: 1) EN Nepro Carbsteady @ 30ml/hr x 24hr (goal) along with Pro-stat 1 pk BID. Water flush 50ml Q6H if allowed, adjust PRN. TF at goal volume along with propofol & Pro-stat provide 1777 kcal (100%), 89 gm protein (83%), and 723 ml free water(including flush). 2) TPN if NPO >7 days 3) Monitor NPO status, lab values, weight trend, and I/O Expected Outcomes/Goals: Intake to meet >75% estimated needs Lab values to improve FU 2-3 days Visit Coding STANDARD RES Billing Provider: IBETH PICKENS MD Date of Service if different f: Aug 31, 2025 SALLY MINOR RESIDENT Aug 31, 2025 13:29
[2025-08-31] MEDS: ALBUMIN 25% 50 ML IV SCH (14:07)
--- NOTE | 2025-08-31 14:09 | DVHPN2 ---
Progress Note - Dictate Date Seen: Aug 31, 2025 Has the PT tested + for MRSA If YES, has PT been informed?: No Medical Necessity Reason Pt with a Central, PICC or Fol: Yes The following are medically ne: Central Line, Meng Catheter Reason for meng catheter: Strict I&O Subjective PT WELL KNOWN TO ME ORGANIC HEART DISEASE CAD HFrEF HTN 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 HYPERKALEMIA COPD HYPERLIPIDEMIA SIGN SX COMPLEX OF NOW WITH SOB CHEST PAIN RENAL FAILURE HYPERKALEMIA RESP FAILURE REQUIRING INTUBATION vital signs Vital Sign Date Time Temp Pulse Resp B/P (MAP) Pulse Ox O2 Delivery O2 Flow Rate FiO2 08/31/25 12:00 70 08/31/25 12:00 24 96 Mechanical Ventilator+ 45 45 08/31/25 11:25 130/53 (78) 08/31/25 08:00 98.6 98.6 Total Intake and Output 08/30/25 08/30/25 08/31/25 15:00 23:00 07:00 Intake Total 176.5 ml 1245.0 ml 463.0 ml Output Total 250 ml 80 ml Balance 176.5 ml 995.0 ml 383.0 ml medications Current Medications Medications Dose Ordered Sig/Adri Route Start Time Stop Time Status Last Admin Dose Admin Albuterol 2.5 mg Q4HPRN PRN NEB 08/20/25 23:15 08/28/25 18:12 2.5 MG Ipratropium [place] 0.5 mg Q4HPRN PRN NEB 08/20/25 23:15 08/28/25 18:12 0.5 MG Multivit/Ca Carb/ B Cmplx/FA/Prenat 1 tab DAILY PO 08/21/25 10:00 08/31/25 10:32 1 TAB Ceftriaxone Sodium 50 ml @ 100 mls/hr DAILY@09 IV 08/21/25 09:00 08/31/25 10:32 100 MLS/HR Diagnostic Test (Pha) 1 strip ACHS 08/21/25 07:00 08/31/25 11:30 1 STRIP Insulin Human Regular ACHS SC 08/21/25 07:00 08/29/25 22:07 2 UNITS Dextrose 50 ml UD PRN IV 08/20/25 23:15 Sodium Chloride 10 ml Q8HR IV 08/21/25 06:00 08/31/25 13:38 10 ML Docusate Sodium 100 mg BIDPRN PRN PO 08/20/25 23:15 Acetaminophen 650 mg Q6HP PRN PO 08/20/25 23:15 Nitroglycerin 0.4 mg Q5MINP PRN SL 08/20/25 23:15 Hold Midazolam HCl 100 ml @ 1 mls/hr Q24H IV 08/21/25 01:45 08/29/25 20:17 3 MLS/HR Pantoprazole Sodium 40 mg DAILY IV 08/22/25 10:00 08/31/25 10:32 40 MG Fentanyl Citrate 250 ml @ 2.5 mls/hr Q24H IV 08/22/25 17:15 08/31/25 05:11 7.5 MLS/HR Amlodipine Besylate 10 mg DAILY PO 08/25/25 12:45 08/30/25 10:14 10 MG Hydralazine HCl 10 mg Q8HR PO 08/26/25 22:00 08/30/25 14:49 10 MG Enteral Nutritional Formula 1,000 ml 45ML/HR GT 08/29/25 12:45 08/30/25 14:49 1,000 ML Sildenafil Citrate 20 mg TID@08,14,20 NG 08/30/25 20:00 08/30/25 20:55 20 MG Albumin Human 50 ml @ 100 mls/hr PRN IV 08/31/25 08:00 09/01/25 08:29 laboratory and microbiology Laboratory Tests 08/31/25 02:48 Test 08/31/25 02:48 Range/Units Serum Glucose 98 74-106 mg/dL Problem List ORGANIC HEART DISEASE CAD HFrEF HTN 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 HYPERKALEMIA COPD HYPERLIPIDEMIA SIGN SX COMPLEX OF NOW WITH SOB CHEST PAIN RENAL FAILURE HYPERKALEMIA RESP FAILURE REQUIRING INTUBATION Assessment/Plan CORRECT HYPERKALEMIA CONSIDER ECHO IF INCONCLUSIVE CONSIDER L/RHC BNP 370 ABX DC BUMEX START IVF AT 100 CC/HR ADD LOKELMA K+ CORRECTED REPEAT BNP WILL PROCEED WITH L/RHC ON FRIDAY POSITIVE FOR INFLUENZA A AND B POSITIVE START WEANING PT CON IV FLUID L/RHC NL CORONARIES EF >50% LVEDP 17mmHg RHC RA 15-27mmHg RV 62/17 PA`66/ 18 PCWP 17 SEVERE PUL HYPERTENSION START REVATIO 40 MG PO TID Dietary Evaluation Review Comments: Nutrition Recommendation: 1) EN Nepro Carbsteady @ 30ml/hr x 24hr (goal) along with Pro-stat 1 pk BID. Water flush 50ml Q6H if allowed, adjust PRN. TF at goal volume along with propofol & Pro-stat provide 1777 kcal (100%), 89 gm protein (83%), and 723 ml free water(including flush). 2) TPN if NPO >7 days 3) Monitor NPO status, lab values, weight trend, and I/O Expected Outcomes/Goals: Intake to meet >75% estimated needs Lab values to improve FU 2-3 days Plan discussed with: Patient Critical Care Time(min): 35 RAMIN GARCIA MD Aug 31, 2025 14:09
[2025-08-31] MEDS: SODIUM CHL 0.9% 1000 ML BAG XX ONE (17:35)
[2025-08-31] MEDS: hydrALAZINE HCL 20 MG/ML VL IV ONE (18:15)
[2025-08-31] MEDS: fentaNYL Drip 2500mCg/250mlNS 250 ML IV SCH (21:15)
[2025-09-01] VITALS (110 sets, daily range): BP systolic 45–173; BP diastolic 29–110; PULSE 67–99; RESP 0–38; TEMP 97.9–98.7; O2SAT 92–100
[2025-09-01 04:22] LABS: Nucleated Red Blood Cells % 0.1 %
[2025-09-01 04:24] LABS: Hematocrit 40.3 % (36.0-46.0); Hemoglobin 11.6 g/dL (12.2-16.2); Mean Corpuscular Hemoglobin 18.9 pg (28.0-32.0); Mean Corpuscular Volume 66.0 fL (80.0-100.0)
[2025-09-01 04:26] LABS: Chloride 106 mmol/L (98-107); Potassium 3.7 mmol/L (3.5-5.1)
[2025-09-01 04:27] LABS: Anion Gap 13 (5-15); Carbon Dioxide 26 mmol/L (20-31)
[2025-09-01 04:32] LABS: Glucose 75 mg/dL (74-106)
[2025-09-01 04:33] LABS: BUN/Creatinine Ratio 10.7 (10.0-20.0); Magnesium 2.1 mg/dL (1.6-2.6)
[2025-09-01 04:35] LABS: Blood Urea Nitrogen 49 mg/dL (9-23); Calcium 8.7 mg/dL (8.7-10.4); Sodium 145 mmol/L (136-145)
--- NOTE | 2025-09-01 05:52 | DVH ---
CHEST RADIOGRAPH Indication: Intubated Technique: Single frontal view of the chest was obtained COMPARISON: XY CHEST XRAY 1 VIEW on DOS: 08/31/25, XY CHEST PORTABLE on DOS: 08/30/25, XY CHEST XRAY 1 VIEW on DOS: 08/30/25, XY CHEST XRAY 1 VIEW on DOS: 08/29/25, XY CHEST XRAY 1 VIEW on DOS: 08/29/25 FINDINGS: Lines and Tubes: Lines and tubes unchanged. Lungs: Stable diffuse increased prominence of the pulmonary vasculature and bilateral pleural effusions. No pneumothorax. Cardiomediastinal contours: Cardiomegaly. Bones: Unremarkable IMPRESSION: 1. Diffuse increased prominence of the pulmonary vasculature, bilateral pleural effusions and cardiomegaly. 2. Lines and tubes unchanged.
[2025-09-01 09:15] LABS: Base Excess -0.1 mmol/L (-2.0-3.0)
--- NOTE | 2025-09-01 10:09 | DVHPNRES ---
Progress Note Date Seen: Sep 01, 2025 Resident Creating Document: SALLY MINOR RESIDENT Has the PT tested + for MRSA If YES, has PT been informed?: No Medical Necessity Reason Pt with a Central, PICC or Fol: Yes The following are medically ne: Central Line, Meng Catheter Reason for meng catheter: Strict I&O Subjective Review of Systems Ms. Marin is a 75-year-old female with prior medical history of CHF, COPD with home oxygen, gout, anxiety, diabetes mellitus, hyperlipidemia, hypertension, and PAD, who to [facility] with chief complaint of shortness of breath and back and midsternal non-radiating chest pain. At time of this evaluation the patient is intubated and sedated, history was taken from her daughter Susy at bedside and from medical record. Per her daughter, patient has been complaining of progressively worsening shortness of breath for the last 2 weeks associated with general malaise and orthopnea, describing very wet coughing sounds when her mother lays flat. She states that her mother began complaining of worsening shortness of breath associated with non-radiating midsternal chest pain which prompted her to call EMS. Per record, on seen she was saturating 74%, she was placed on CPAP with inspiration increasing to 88% on route to the emergency department. On evaluation in the ED, is afebrile, slightly hypertensive, and tachypneic saturating 81% which she was placed on BiPAP. Initial labs significant for leukocytosis of 11.3, with elevated hematocrit, and thrombocytopenia, Hyperkalemia, creatinine 4.09, BUN 46, and ABG significant for respiratory acidosis, troponins are negative, BNP 2515.41.Patient is influenza A and B positive. Chest x-ray shows moderate to severe pulmonary edema. Patient further deteriorated requiring intubation for respiratory distress. She was started on IV Lasix, IV methylprednisolone, hyperkalemia protocol, bicarbonate drip, and nitroglycerin drip. On my initial evaluation in the ED, the patient is sedated, intubated, and mechanically ventilated, currently not on pressors. Prior Medical history: CHF, COPD, gout, anxiety, type 2 diabetes mellitus, hyperlipidemia, hypertension, PAD, pulmonary hypertension Previous surgical history: Left leg stenting for PAD Allergies: Denies Social history: Daughter refers the patient smokes cigarettes with cessation approximately 20 years ago Home medications: Allopurinol, insulin, gabapentin, simvastatin, tadalafil 08/26/2025: Patient was seen in ICU. She is sedated, intubated, mechanically ventilated, not on pressors. CBC shows thrombocytopenia, persists with hyperkalemia, kidney function continues to worsen. UA is significant for UTI. She is being followed by nephrology who is currently recommending recommended a kidney ultrasound and hyperkalemia protocol to reduce serum potassium. She was evaluated by her coke drawer hand, Dr. Bahena, who recommends echocardiogram, if inconclusive possible R/LHC. Tube feeds will be initiated. We will continue to monitor 08/27/25: Patient is seen and examined at bedside, , intubated, mechanically ventilated, not on pressors. She was evaluated by her coke drawer hand, Dr. Bahena, who recommends echocardiogram, if inconclusive possible R/LHC. Tube feeds will be initiated. We will continue to monitor. 08/28/25 Sedation reduced today for neurologic assessment; patient remains sedated but arousable to stimulation. * IV fluid optimization initiated: Started 0.9% NS at 75 mL/hr, given concern for worsening COLE (Cr 4.26 today - 4.03 yesterday). * Strictly discontinued diuretics (Bumex/Lasix) due to elevated creatinine. * No peripheral edema today. * Left heart cath + right heart cath planned for tomorrow ONLY after renal function improves; currently high risk for contrast-induced nephropathy due to low GFR. * Pre-cath renal protection plan reviewed: * 250 mL NS bolus 1 hr prior * NS at 100 mL/hr for 5 hours after * WBC 13.6 (leukocytosis), Hgb 12.3, Plt 122 (mild thrombocytopenia). * ABG: pH 7.37, PCO2 40.2, PO2 58.3 (low), HCO2 23, O2 sat 87% (low). * Current ventilator settings: FiO2 40%, PEEP 5, TV 450 mL. 08/29/2025: Patient seen in the ICU. She is intubated, sedated, and mechanically ventilated. She is scheduled for L/R heart cath tomorrow, for which she is being given fluids in preparation for. She is afebrile, normocardic, and with stable BP occasionally high. WBCs are elevated and renal function is worsening. Chest Xray has shows minor improvement. Lasix has been discontinued by cardiology. 08/30/2025: Patient seen in the ICU. She is intubated, sedated, and mechanically ventilated. She will go for L/R heart cath today. Fluids were given, another 250 cc has been ordered to be given 1 hour before the procedure. She is afebrile, normocardic, occasionally breathing over the vent, mostly hypertensive. WBCs are down trending, renal function is worsening. Both nephrology and cardiology are on board. Per nurse, patient has not had a bowel movement in 4 days, for which lactulose will be given. Per nephrology, patient is to be placed on NS at 100 cc/hr for 5 hours after procedure with 100 mg of Furosemide IV. Per Dr. Bahena, the patient is not to receive furosemide. We will continue to monitor. 08/31/2025: Patient seen in the ICU. She is intubated, sedated, and mechanically ventilated. She is afebrile, normocardic, with soft blood pressure. Labs are significant with worsening kidney function. She underwent L/R heart cath yesterday. Findings significant with severe pulmonary hypertension pulmonary artery pressure 66/18 mmHg and capillary wedge of 17 mmHg, she was started on sildenafil by Dr. Bahena. She will undergo hemodialysis today. We will continue to monitor. 09/01/2025: Patient seen in the ICU. She is intubated, sedated, and mechanically ventilated. She is afebrile, normocardic, with stable blood pressure. Labs show improved kidney function after hemodialysis yesterday, 2L were pulled yesterday. She will undergo dialysis again tomorrow. We will begin to wean the off the ventilator. Objective vital signs Vital Sign Date Time Temp Pulse Resp B/P (MAP) Pulse Ox O2 Delivery O2 Flow Rate FiO2 09/01/25 09:43 70 24 112/52 (72) 97 45 09/01/25 06:00 Mechanical Ventilator+ 09/01/25 05:59 98.7 98.7 Total Intake and Output 08/31/25 08/31/25 09/01/25 15:00 23:00 07:00 Intake Total 76.0 ml 38.5 ml 158 ml Output Total 225 ml 200 ml Balance 76.0 ml -186.5 ml -42 ml medications Current Medications Medications Dose Ordered Sig/Adri Route Start Time Stop Time Status Last Admin Dose Admin Albuterol 2.5 mg Q4HPRN PRN NEB 08/20/25 23:15 08/28/25 18:12 2.5 MG Ipratropium [place] 0.5 mg Q4HPRN PRN NEB 08/20/25 23:15 08/28/25 18:12 0.5 MG Multivit/Ca Carb/ B Cmplx/FA/Prenat 1 tab DAILY PO 08/21/25 10:00 09/01/25 09:34 1 TAB Ceftriaxone Sodium 50 ml @ 100 mls/hr DAILY@09 IV 08/21/25 09:00 09/01/25 09:36 100 MLS/HR Diagnostic Test (Pha) 1 strip ACHS 08/21/25 07:00 09/01/25 06:42 1 STRIP Insulin Human Regular ACHS SC 08/21/25 07:00 08/29/25 22:07 2 UNITS Dextrose 50 ml UD PRN IV 08/20/25 23:15 Sodium Chloride 10 ml Q8HR IV 08/21/25 06:00 09/01/25 06:08 10 ML Docusate Sodium 100 mg BIDPRN PRN PO 08/20/25 23:15 Acetaminophen 650 mg Q6HP PRN PO 08/20/25 23:15 Nitroglycerin 0.4 mg Q5MINP PRN SL 08/20/25 23:15 Hold Midazolam HCl 100 ml @ 1 mls/hr Q24H IV 08/21/25 01:45 09/01/25 06:09 4 MLS/HR Pantoprazole Sodium 40 mg DAILY IV 08/22/25 10:00 09/01/25 09:36 40 MG Amlodipine Besylate 10 mg DAILY PO 08/25/25 12:45 08/30/25 10:14 10 MG Hydralazine HCl 10 mg Q8HR PO 08/26/25 22:00 09/01/25 06:08 10 MG Enteral Nutritional Formula 1,000 ml 45ML/HR GT 08/29/25 12:45 08/30/25 14:49 1,000 ML Sildenafil Citrate 20 mg TID@08,14,20 NG 08/30/25 20:00 09/01/25 09:35 20 MG Fentanyl Citrate 250 ml @ 2.5 mls/hr Q24H IV 08/31/25 21:15 09/01/25 09:48 12.5 MLS/HR Examination General: Patient is intubated, sedated, mechanically ventilated, RASS -3, is reactive to painful stimulus HEENT: Normocephalic, atraumatic, pin point pupils sluggish, no EOM, pink conjunctiva, pink moist mucous membrane, ET tube in place, left internal jugular central line in place, orogastric tube in palce Respiratory/pulmonary: Bilateral chest expansion, improved breath sounds bilaterally Cardiovascular: Normal RRR Abdomen: Obese, Abdomen nondistended, normal bowel sounds, soft, no grimacing is observed on palpation, no palpable masses. Extremities: No deformities, edema of bilateral hands, edema has improved, skin of bilateral lower extremities are extremely dry, pulses 2+ bilateral lower extremities, presence of Frank catheter in right groin region Skin: No rashes or pruritus, there is no sacral edema present at this time. Neurological: cough and gag reflex present laboratory and microbiology Laboratory Tests 09/01/25 03:25 Test 09/01/25 03:25 Range/Units Serum Glucose 75 74-106 mg/dL Microbiology Date/Time Source Procedure Growth Status 08/22/25 12:52 Urine - Meng Port Urine Culture - Final Complete 08/22/25 08:06 Nose MRSA Screen - Final Complete Problem List/Assessment/Plan Problem List/Assessment/Plan Neurology # Sedated - Versed 4 - Propofol: Discontinued - Fentanyl 125 Cardiovascular # Acute on chronic HFrEF # Pulmonary Edema - BNP 2515.41 --> 370 - Chest xray 08/20/2025: Moderate to severe pulmonary edema - Chest xray 08/21/2025: Cardiomegaly with pulmonary venous congestion and edema - Echocardiogram 01/14/2022: EF > 60%, Limited echo windows, mild TR, MR - New echocardiogram has been ordered, pending read - Cardiology: Pending echo, considered R/LHC if inconclusive , discontinue bumex drip - Laxis 40 mg IV daily - Per nephrology: Start bumex drip + albumin and D5W 75 cc/hour -- Bumex drip discontinued by cardiology -- D5W has been discontinued due to resolution of hypernatremia - Chest Xray shows worsening, for which lasix 40 mg BID will be initiated - Lasix has been discontinued by Cardiology #Hypertension - Amlodipine 10 mg NG daily - Hydralazine #CAD - R/L heart catheterization 08/30/2025: Left main, LAD and circumflex are patent, RCA patent, E is 50-55% #Severe pulmonary hypertension - R/L heart catheterization 08/30/2025: RA pressure 18 mmHg, RV pressure 62/16 mmHg, pulmonary artery pressure 66/18 mmHg, capillary wedge pressure: 17 mmHg - Per cardiology: Sildenafil 20mg NG TID, originally 40 but this was lowered Respiratory # Ventilator -intubated (08/21/2025) -On [facility] vent : VCAC Mode RR 24 TV 450ml, PEEP Of 5 and FiO2 of 40% # Acute hypercapnic respiratory failure secondary to pulmonary edema # Acute COPD exacerbation - Methylprednisolone 40 mg IV, discontinued - Ipratropium medneb - Albuterol medneb - Ceftriaxone 1 g IV daily #Influenza A and B - Tamiflu 30 mg BID suspension, discontinued #Respiratory acidosis GI # Peptic ulcer prophylaxis -Pantoprazole 40 mg IV daily # Constipation - Lactulose 15 mL GT # Meng catheter # Possible Complicated UTI, present on admission - Ceftriaxone 1 g IV daily, discontinued Nephrology # COLE on CKD likely hemodynamically mediated/ VMN - NS 1000 cc bolus + 250 cc bolus in preparation for heart cath - NS 100cc/hr for 5 hours after procedure - Furosemide 100 mg IV after procedure, this was discontinued at the request of cardiology - Dialysis catheter placed by Dr. Bahena in right femoral region - Hemodialysis: 08/31 #Hyperkalemia, resolved - Per nephrology: trial of forced diuresis to enhance potassium excretion, serial chemistry panels, IV bicarbonate infusion, and avoidance of IV contrast if able, currently without urgent indication for kidney replacement therapy - Bicarbonate drip has been dc'd - Per Cardiology: [facility] . #Acute metabolic acidosis #Hypernatremia, resolved - D5W, discontinued Infectious disease # Influenza A and B Pneumonia - Tamiflu 30 mg BID suspension, discontinued Hem/onc #Thrombocytopenia, resolved - Monitor Endocrine #Type 2 diabetes mellitus - SSI -Accu cheks DVT prophylaxis: SCD PUD prophylaxis: Pantoprazole 40 mg IV daily Lines -L femoral Central line 08/20/2025 - discontinued on 08/29/2025 -L internal jugular central line 08/29/2025 -Meng catheter 08/20/2025 -ET tube: 08/21/2025 Nutrition: Nepro at a rate of 30 Drips during [facility] ventilation Versed 5 Fentanyl 125 Propofol: Discontinued Nitroglycerin: Discontinued Nicardipine drip: Discontinued Bicarbonate drip: Discontinued Patient will have sedation vacation today with aims to begin to wean the patient off ventilator. Critical care time 50 minutes excluding procedure. Code status discussed greater than 20 minutes: Full CODE STATUS. Daughter, Susy, was contacted via telephone and updated on her mother's condition. Plan discussed with Plan discussed with: Daughter, Other My Orders My Orders Orders - SALLY MINOR RESIDENT Procedure Category Date Status Time Abg W/ Co-Ox RT 09/01/25 Logged 04:00 Chest Xray 1 View XY 09/01/25 Resulted 04:00 Dietary Evaluation Review Comments: Nutrition Recommendation: 1) EN Nepro Carbsteady @ 30ml/hr x 24hr (goal) along with Pro-stat 1 pk BID. Water flush 50ml Q6H if allowed, adjust PRN. TF at goal volume along with propofol & Pro-stat provide 1777 kcal (100%), 89 gm protein (83%), and 723 ml free water(including flush). 2) TPN if NPO >7 days 3) Monitor NPO status, lab values, weight trend, and I/O Expected Outcomes/Goals: Intake to meet >75% estimated needs Lab values to improve FU 2-3 days Visit Coding STANDARD RES Billing Provider: RAVI SABA MD Date of Service if different f: Sep 01, 2025 SALLY MINOR RESIDENT Sep 01, 2025 10:09
--- NOTE | 2025-09-01 10:35 | DVHPN2 ---
Progress Note Date Seen: Sep 01, 2025 Has the PT tested + for MRSA If YES, has PT been informed?: No Medical Necessity Reason Pt with a Central, PICC or Fol: Yes The following are medically ne: Central Line, Meng Catheter Reason for meng catheter: Strict I&O Subjective Review of Systems: RESPIRATORY:Abnormal Other Systems: Patient seen and examined by myself today in f/u Objective vital signs Vital Sign Date Time Temp Pulse Resp B/P (MAP) Pulse Ox O2 Delivery O2 Flow Rate FiO2 09/01/25 09:43 70 24 112/52 (72) 97 45 09/01/25 06:00 Mechanical Ventilator+ 09/01/25 05:59 98.7 98.7 Total Intake and Output 08/31/25 08/31/25 09/01/25 15:00 23:00 07:00 Intake Total 76.0 ml 38.5 ml 158 ml Output Total 225 ml 200 ml Balance 76.0 ml -186.5 ml -42 ml medications Current Medications Medications Dose Ordered Sig/Adri Route Start Time Stop Time Status Last Admin Dose Admin Albuterol 2.5 mg Q4HPRN PRN NEB 08/20/25 23:15 08/28/25 18:12 2.5 MG Ipratropium [place] 0.5 mg Q4HPRN PRN NEB 08/20/25 23:15 08/28/25 18:12 0.5 MG Multivit/Ca Carb/ B Cmplx/FA/Prenat 1 tab DAILY PO 08/21/25 10:00 09/01/25 09:34 1 TAB Ceftriaxone Sodium 50 ml @ 100 mls/hr DAILY@09 IV 08/21/25 09:00 09/01/25 09:36 100 MLS/HR Diagnostic Test (Pha) 1 strip ACHS 08/21/25 07:00 09/01/25 06:42 1 STRIP Insulin Human Regular ACHS SC 08/21/25 07:00 08/29/25 22:07 2 UNITS Dextrose 50 ml UD PRN IV 08/20/25 23:15 Sodium Chloride 10 ml Q8HR IV 08/21/25 06:00 09/01/25 06:08 10 ML Docusate Sodium 100 mg BIDPRN PRN PO 08/20/25 23:15 Acetaminophen 650 mg Q6HP PRN PO 08/20/25 23:15 Nitroglycerin 0.4 mg Q5MINP PRN SL 08/20/25 23:15 Hold Midazolam HCl 100 ml @ 1 mls/hr Q24H IV 08/21/25 01:45 09/01/25 06:09 4 MLS/HR Pantoprazole Sodium 40 mg DAILY IV 08/22/25 10:00 09/01/25 09:36 40 MG Amlodipine Besylate 10 mg DAILY PO 08/25/25 12:45 08/30/25 10:14 10 MG Hydralazine HCl 10 mg Q8HR PO 08/26/25 22:00 09/01/25 06:08 10 MG Enteral Nutritional Formula 1,000 ml 45ML/HR GT 08/29/25 12:45 08/30/25 14:49 1,000 ML Sildenafil Citrate 20 mg TID@08,14,20 NG 08/30/25 20:00 09/01/25 09:35 20 MG Fentanyl Citrate 250 ml @ 2.5 mls/hr Q24H IV 08/31/25 21:15 09/01/25 09:48 12.5 MLS/HR Examination: LUNGS:Normal, CVS:Normal, MSK:Normal laboratory and microbiology Laboratory Tests 09/01/25 03:25 Test 09/01/25 03:25 Range/Units Serum Glucose 75 74-106 mg/dL Microbiology Date/Time Source Procedure Growth Status 08/22/25 12:52 Urine - Meng Port Urine Culture - Final Complete 08/22/25 08:06 Nose MRSA Screen - Final Complete Problem List/Assessment/Plan Problem List/Assessment/Plan Acute kidney injury superimposed on advanced Chronic Kidney Disease stage 4/5 secondary hemodynamic mediated, ATN, FeNa > 2%, IV contrast, requiring intermittent HD Acute hypoxic respiratory failure, patient intubated on ventilator Community-acquired pneumonia Diabetes mellitus type 2 Nephrotic syndrome secondary to underlying diabetic nephropathy Hyperkalemia Hypernatremia due to insensible water loss Recommendations HD tomorrow Epogen 4000 subQ 3 times weekly Hyperkalemia resolved Hypernatremia appropriately resolved Strict I&Os kidney ultrasound reported within normal limit IV antibiotics Avoid nephrotoxic medications We will continue to follow Plan discussed with: Other (nurse) My Orders My Orders Orders - JEANNE WHITE MD Procedure Category Date Status Time Communication Order ORDERS 12/3/25 Transmitted 09:00 Amlodipine Tablet PHA 09/01/25 Verified (Norvasc Tablet) 10:45 Hemodialysis Orders ORDERS 09/02/25 Verified 07:00 Dialysis Nursing CHASTITY 09/02/25 Verified Message 07:00 Heparin Sodium PHA 09/02/25 Verified (Porcine) 07:00 Heparin Sodium PHA 09/02/25 Verified (Porcine) 07:00 Sodium Chloride 0.9% PHA 09/02/25 Verified 07:00 Document Fluid Input CHASTITY 09/02/25 Verified And Outpu 07:00 Dietary Evaluation Review Comments: Nutrition Recommendation: 1) EN Nepro Carbsteady @ 30ml/hr x 24hr (goal) along with Pro-stat 1 pk BID. Water flush 50ml Q6H if allowed, adjust PRN. TF at goal volume along with propofol & Pro-stat provide 1777 kcal (100%), 89 gm protein (83%), and 723 ml free water(including flush). 2) TPN if NPO >7 days 3) Monitor NPO status, lab values, weight trend, and I/O Expected Outcomes/Goals: Intake to meet >75% estimated needs Lab values to improve FU 2-3 days JEANNE WHITE MD Sep 01, 2025 10:35
--- NOTE | 2025-09-01 11:26 | DVHPN2 ---
Progress Note - Dictate Date Seen: Sep 01, 2025 Has the PT tested + for MRSA If YES, has PT been informed?: No Medical Necessity Reason Pt with a Central, PICC or Fol: Yes The following are medically ne: Central Line, Meng Catheter Reason for meng catheter: Strict I&O Subjective PT WELL KNOWN TO ME ORGANIC HEART DISEASE CAD HFrEF HTN 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 HYPERKALEMIA COPD HYPERLIPIDEMIA SIGN SX COMPLEX OF NOW WITH SOB CHEST PAIN RENAL FAILURE HYPERKALEMIA RESP FAILURE REQUIRING INTUBATION vital signs Vital Sign Date Time Temp Pulse Resp B/P (MAP) Pulse Ox O2 Delivery O2 Flow Rate FiO2 09/01/25 09:43 70 24 112/52 (72) 97 45 09/01/25 06:00 Mechanical Ventilator+ 09/01/25 05:59 98.7 98.7 Total Intake and Output 08/31/25 08/31/25 09/01/25 15:00 23:00 07:00 Intake Total 76.0 ml 38.5 ml 158 ml Output Total 225 ml 200 ml Balance 76.0 ml -186.5 ml -42 ml medications Current Medications Medications Dose Ordered Sig/Adri Route Start Time Stop Time Status Last Admin Dose Admin Albuterol 2.5 mg Q4HPRN PRN NEB 08/20/25 23:15 08/28/25 18:12 2.5 MG Ipratropium [place] 0.5 mg Q4HPRN PRN NEB 08/20/25 23:15 08/28/25 18:12 0.5 MG Multivit/Ca Carb/ B Cmplx/FA/Prenat 1 tab DAILY PO 08/21/25 10:00 09/01/25 09:34 1 TAB Ceftriaxone Sodium 50 ml @ 100 mls/hr DAILY@09 IV 08/21/25 09:00 09/01/25 09:36 100 MLS/HR Diagnostic Test (Pha) 1 strip ACHS 08/21/25 07:00 09/01/25 06:42 1 STRIP Insulin Human Regular ACHS SC 08/21/25 07:00 08/29/25 22:07 2 UNITS Dextrose 50 ml UD PRN IV 08/20/25 23:15 Sodium Chloride 10 ml Q8HR IV 08/21/25 06:00 09/01/25 06:08 10 ML Docusate Sodium 100 mg BIDPRN PRN PO 08/20/25 23:15 Acetaminophen 650 mg Q6HP PRN PO 08/20/25 23:15 Nitroglycerin 0.4 mg Q5MINP PRN SL 08/20/25 23:15 Hold Midazolam HCl 100 ml @ 1 mls/hr Q24H IV 08/21/25 01:45 09/01/25 06:09 4 MLS/HR Pantoprazole Sodium 40 mg DAILY IV 08/22/25 10:00 09/01/25 09:36 40 MG Hydralazine HCl 10 mg Q8HR PO 08/26/25 22:00 09/01/25 06:08 10 MG Enteral Nutritional Formula 1,000 ml 45ML/HR GT 08/29/25 12:45 08/30/25 14:49 1,000 ML Sildenafil Citrate 20 mg TID@08,14,20 NG 08/30/25 20:00 09/01/25 09:35 20 MG Fentanyl Citrate 250 ml @ 2.5 mls/hr Q24H IV 08/31/25 21:15 09/01/25 09:48 12.5 MLS/HR Amlodipine Besylate 10 mg DAILY PO 09/01/25 10:45 laboratory and microbiology Laboratory Tests 09/01/25 03:25 Test 09/01/25 03:25 Range/Units Serum Glucose 75 74-106 mg/dL Problem List ORGANIC HEART DISEASE CAD HFrEF HTN 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 HYPERKALEMIA COPD HYPERLIPIDEMIA SIGN SX COMPLEX OF NOW WITH SOB CHEST PAIN RENAL FAILURE HYPERKALEMIA RESP FAILURE REQUIRING INTUBATION Assessment/Plan CORRECT HYPERKALEMIA CONSIDER ECHO IF INCONCLUSIVE CONSIDER L/RHC BNP 370 ABX DC BUMEX START IVF AT 100 CC/HR ADD LOKELMA K+ CORRECTED REPEAT BNP WILL PROCEED WITH L/RHC ON FRIDAY POSITIVE FOR INFLUENZA A AND B POSITIVE START WEANING PT CON IV FLUID L/RHC NL CORONARIES EF >50% LVEDP 17mmHg RHC RA 15-27mmHg RV 62/17 PA`66/ 18 PCWP 17 SEVERE PUL HYPERTENSION START REVATIO 20 MG TID HEMODIALYSIS IN AM CHEST CXR STILL WITH INFILTRATIVE PROCESS START WEAN SEDATION WITH HD Dietary Evaluation Review Comments: Nutrition Recommendation: 1) EN Nepro Carbsteady @ 30ml/hr x 24hr (goal) along with Pro-stat 1 pk BID. Water flush 50ml Q6H if allowed, adjust PRN. TF at goal volume along with propofol & Pro-stat provide 1777 kcal (100%), 89 gm protein (83%), and 723 ml free water(including flush). 2) TPN if NPO >7 days 3) Monitor NPO status, lab values, weight trend, and I/O Expected Outcomes/Goals: Intake to meet >75% estimated needs Lab values to improve FU 2-3 days Plan discussed with: Daughter Critical Care Time(min): 35 RAMIN GARCIA MD Sep 01, 2025 11:26
--- NOTE | 2025-09-01 19:05 | DVHPN2 ---
Subjective DOS: 09/01/2025 Patient seen and examined at bedside. Sedated, intubated on mechanical ventilator. Overnight events reviewed. Changes from previous H/P or p: No Changes Eyes: No Pain, No Vision change, No Conjunctivae inflammation, No Eyelid inflammation, No Other, No Redness ENT: No Ear pain, No Ear discharge, No Nose pain, No Nose discharge, No Nose congestion, No Mouth pain, No Mouth swelling, No Throat pain, No Throat swelling, No Other Cardiovascular: Chest Pain; No Palpitations, No Orthopnea, No Paroxysmal Noc. Dyspnea, No Edema, No Lt Headedness, No Other Respiratory: No Cough, No Dry; Shortness of breath; No SOB with excertion, No Wheezing, No Hemoptysis, No Pleuritic Pain, No Sputum; Other (SOB at rest) Gastrointestinal: No Nausea, No Vomiting, No Abdominal Pain, No Diarrhea, No Constipation, No Melena, No Hematochezia, No Other Genitourinary: No Dysuria, No Frequency, No Incontinence, No Hematuria, No Retention; Other (Schuster catheter in place) Musculoskeletal: other (Bilateral leg discoloration); No neck pain, No shoulder pain, No arm pain, No back pain, No hand pain, No leg pain, No foot pain Skin: No Rash, No Lesions, No Jaundice, No Bruising; Other (Left foot wound) Objective Vitals Vital Signs Date Time Temp Pulse Resp B/P (MAP) Pulse Ox O2 Delivery O2 Flow Rate FiO2 09/01/25 18:13 78 24 129/58 (81) 96 45 09/01/25 18:00 Mechanical Ventilator+ 09/01/25 16:29 97.9 97.9 Intake/Output Intake and Output 09/01/25 07:00 Intake Total 275.5 ml Output Total 425 ml Balance -149.5 ml Intake Oral 40 ml IV Total 131.5 ml Tube Feeding 104 ml Output Urine Total 425 ml # Bowel Movements 1 Exam Gen.: Patient lying in bed in medical ICU. Sedated, intubated on mechanical ventilator. Head: Normocephalic, atraumatic. Eyes: PERRLA. Ears: Normal external anatomy. Throat: Endotracheal tube and orogastric tube in place. Neck: Supple, trachea midline. Chest: Transmitted breath sounds bilaterally. Decreased air entry bilaterally. No wheezing. Bibasilar crackles. Cardiovascular: Positive S1, positive S2. Regular rate and rhythm. Abdomen: Positive bowel sounds in all 4 quadrants. Soft, nontender, nondistended. : Schuster in place. Normal external genitalia. Rectal: Deferred. Skin: Warm, dry. Intact. Extremities: 2+ radial pulses bilaterally. No lower extremity edema. Neuro: Sedated. Medications Current Medications Medications Dose Ordered Sig/Adri Route Start Time Stop Time Status Last Admin Dose Admin Albuterol 2.5 mg Q4HPRN PRN NEB 08/20/25 23:15 08/28/25 18:12 2.5 MG Ipratropium [place] 0.5 mg Q4HPRN PRN NEB 08/20/25 23:15 08/28/25 18:12 0.5 MG Multivit/Ca Carb/ B Cmplx/FA/Prenat 1 tab DAILY PO 08/21/25 10:00 09/01/25 09:34 1 TAB Diagnostic Test (Pha) 1 strip ACHS 08/21/25 07:00 09/01/25 16:50 1 STRIP Insulin Human Regular ACHS SC 08/21/25 07:00 08/29/25 22:07 2 UNITS Dextrose 50 ml UD PRN IV 08/20/25 23:15 Sodium Chloride 10 ml Q8HR IV 08/21/25 06:00 09/01/25 14:13 10 ML Docusate Sodium 100 mg BIDPRN PRN PO 08/20/25 23:15 Acetaminophen 650 mg Q6HP PRN PO 08/20/25 23:15 Nitroglycerin 0.4 mg Q5MINP PRN SL 08/20/25 23:15 Hold Midazolam HCl 100 ml @ 1 mls/hr Q24H IV 08/21/25 01:45 09/01/25 06:09 4 MLS/HR Pantoprazole Sodium 40 mg DAILY IV 08/22/25 10:00 09/01/25 09:36 40 MG Hydralazine HCl 10 mg Q8HR PO 08/26/25 22:00 09/01/25 06:08 10 MG Enteral Nutritional Formula 1,000 ml 45ML/HR GT 08/29/25 12:45 08/30/25 14:49 1,000 ML Sildenafil Citrate 20 mg TID@08,14,20 NG 08/30/25 20:00 09/01/25 14:52 20 MG Fentanyl Citrate 250 ml @ 2.5 mls/hr Q24H IV 08/31/25 21:15 09/01/25 09:48 12.5 MLS/HR Amlodipine Besylate 10 mg DAILY PO 09/01/25 10:45 Laboratory Results Laboratory Tests 09/01/25 03:25 Chemistry Test 09/01/25 03:25 Calcium Level 8.7 mg/dL (8.7-10.4) Magnesium Level 2.1 mg/dL (1.6-2.6) Phosphorus Level 4.7 mg/dL (2.4-5.1) Urinalysis Test 08/22/25 11:43 08/22/25 12:52 Urine Color Light-yellow (Yellow) Urine Clarity Turbid (Clear) H Urine pH 6.5 (5.0-9.0) Urine Specific [place] 1.011 (1.001-1.035) Urine Protein 2+ (Negative) H Urine Ketones Negative (Negative) Urine Blood 2+ /uL (Negative) H Urine Nitrite Negative (Negative) Urine Bilirubin Negative (Negative) Urine Urobilinogen Normal mg/dL (Negative) Urine Leukocyte Esterase 2+ /uL (Negative) Urine RBC 151 /hpf (0 - 4) Urine WBC Clumps Present /hpf (None Seen) Urine Microscopic WBC 23 /HPF (0-5) H Urine Squamous Epithelial Cells Few /hpf (<5) Urine Bacteria Few /hpf (None Seen) H Urine Hyaline Casts Mod /lpf (0 - 2) Urine Mucus Few (None Seen) Urine Protein/Creatinine Ratio 4.08 Urine Glucose 1+ mg/dL (Normal) H Urine Total Protein 204.4 mg/dL (1-14) H Urine Creatinine 52.93 mg/dL (30.0-125.0) Urine Sodium 114 mmol/L (40-220) Blood Gas Results Test 09/01/25 07:03 Arterial Blood pH 7.368 (7.350-7.450) FiO2 % 45.0 Microbiology Microbiology Date/Time Source Procedure Growth Status 08/22/25 12:52 Urine - Schuster Port Urine Culture - Final Complete 08/22/25 08:06 Nose MRSA Screen - Final Complete Assessment/Plan Assessment/Plan Impression: Acute hypoxic respiratory failure Acute hypercapnic respiratory failure On mechanical ventilator Pulmonary edema Pulmonary hypertension Metabolic acidosis Acute renal failure Morbid obesity Plan: s/p intubation on mechanical ventilator. On AC mode; RR 24, VT 450, PEEP 5, FiO2 45% Titrate FIO2 to keep O2 saturation above 90%. VAP bundle. Daily ABG and CXR while intubated Sedate for ventilator synchrony - on Versed, Fentanyl drips Continue antibiotics. IV fluids at 100 ml/hr. Tube feeds for nutritional support Pressors as necessary for hemodynamic support Titrate to keep mean arterial pressure greater than 65 mmHg. Hemodialysis per Nephrology Monitor renal function Monitor electrolytes. Supplement as necessary. Monitor ins and outs. Taper sedation as tolerated Plan for CPAP once patient is awake, alert and following commands. Recommend diet and lifestyle modifications for weight reduction Obesity complicates all care GI prophylaxis. DVT prophylaxis. Prognosis: Poor given patient's multiple co-morbidities. Condition: Critical Rest of plan per hospitalist and other consultants. A total of 35 minutes of critical care time was spent reviewing the patient record, examining the patient, making a diagnostic and therapeutic plan, discussing this plan with the medical personnel, following up on diagnostic studies and following the patient for clinical stability excluding any and all procedures. At least 50% of this time was spent in direct, [id number] contact. Thank you, Dr. Mike Zheng, for allowing me to participate in this patient's care. Further recommendations will depend on the patient's clinical course. Please do not hesitate to contact me if you have any questions or concerns. This medical document was created using an electronic medical record system with [employer] dictation system. Although these documentations are being carefully reviewed, there may still be some phonetic and typographical changes. The errors are purely typographical, due to imperfection on the software program, and do not reflect any compromise in the patient's medical care. Plan discussed with: Other (MARU Mendoza/) Visit Coding Pulmonary Billing Provider: RAVI SABA MD Date of Service if different f: Sep 01, 2025 Common Visit Codes: [id number] INP/OBS CARE(HIGH), [id number] CARE 30-74 MIN RAVI SABA MD Sep 01, 2025 19:05
[2025-09-02] VITALS (107 sets, daily range): BP systolic 70–180; BP diastolic 35–103; PULSE 78–113; RESP 0–36; TEMP 97.3–99; O2SAT 91–99
[2025-09-02 04:20] LABS: Hemoglobin 11.5 g/dL (12.2-16.2); Nucleated Red Blood Cells % 0.1 %
[2025-09-02 04:22] LABS: Hematocrit 40.2 % (36.0-46.0); Mean Corpuscular Hemoglobin 19.0 pg (28.0-32.0); Mean Corpuscular Volume 66.6 fL (80.0-100.0)
[2025-09-02 04:32] LABS: Anion Gap 13 (5-15); Carbon Dioxide 26 mmol/L (20-31); Chloride 106 mmol/L (98-107); Potassium 3.9 mmol/L (3.5-5.1); Sodium 145 mmol/L (136-145)
[2025-09-02 04:34] LABS: Calcium 8.9 mg/dL (8.7-10.4)
[2025-09-02 04:38] LABS: BUN/Creatinine Ratio 11.2 (10.0-20.0); Glucose 92 mg/dL (74-106)
[2025-09-02 04:39] LABS: Magnesium 2.1 mg/dL (1.6-2.6)
[2025-09-02 04:43] LABS: Blood Urea Nitrogen 57 mg/dL (9-23)
[2025-09-02 05:31] LABS: Anisocytosis Moderate
--- NOTE | 2025-09-02 05:38 | DVH ---
CHEST RADIOGRAPH Indication: Intubated Technique: Single frontal view of the chest was obtained COMPARISON: XY CHEST XRAY 1 VIEW on DOS: 09/01/25, XY CHEST XRAY 1 VIEW on DOS: 08/31/25, XY CHEST PORTABLE on DOS: 08/30/25, XY CHEST XRAY 1 VIEW on DOS: 08/30/25, XY CHEST XRAY 1 VIEW on DOS: 08/29/25 FINDINGS: Lines and Tubes: Endotracheal tube, enteric catheter in satisfactory position. Left central venous catheter in satisfactory position. Lungs: Pulmonary vascular congestion, unchanged. Pleura: No effusion.No pneumothorax. Cardiomediastinal contours: Cardiomegaly. Bones: Unremarkable IMPRESSION: Lines and tubes in satisfactory position. No significant interval change.
[2025-09-02 08:07] LABS: Base Excess -1.9 mmol/L (-2.0-3.0)
[2025-09-02] MEDS: SODIUM CHL 0.9% 1000 ML BAG XX ONE (09:20)
--- NOTE | 2025-09-02 11:16 | DVHPN2 ---
Progress Note Date Seen: Sep 02, 2025 Has the PT tested + for MRSA If YES, has PT been informed?: No Medical Necessity Reason Pt with a Central, PICC or Fol: Yes The following are medically ne: Central Line, Meng Catheter Reason for meng catheter: Strict I&O Subjective Review of Systems: RESPIRATORY:Abnormal Other Systems: Patient seen and examined by myself today in follow-up, patient remained intubated on ventilator Patient examined hemodialysis, blood pressure stable Objective vital signs Vital Sign Date Time Temp Pulse Resp B/P (MAP) Pulse Ox O2 Delivery O2 Flow Rate FiO2 09/02/25 10:30 97 26 125/65 (85) 93 09/02/25 10:08 45 09/02/25 10:00 Mechanical Ventilator+ 09/02/25 08:30 97.3 97.3 Total Intake and Output 09/01/25 09/01/25 09/02/25 15:00 23:00 07:00 Intake Total 16 ml 207 ml 261 ml Output Total 50 ml 600 ml Balance 16 ml 157 ml -339 ml medications Current Medications Medications Dose Ordered Sig/Adri Route Start Time Stop Time Status Last Admin Dose Admin Albuterol 2.5 mg Q4HPRN PRN NEB 08/20/25 23:15 08/28/25 18:12 2.5 MG Ipratropium [place] 0.5 mg Q4HPRN PRN NEB 08/20/25 23:15 08/28/25 18:12 0.5 MG Multivit/Ca Carb/ B Cmplx/FA/Prenat 1 tab DAILY PO 08/21/25 10:00 09/01/25 09:34 1 TAB Diagnostic Test (Pha) 1 strip ACHS 08/21/25 07:00 09/02/25 06:28 1 STRIP Insulin Human Regular ACHS SC 08/21/25 07:00 08/29/25 22:07 2 UNITS Dextrose 50 ml UD PRN IV 08/20/25 23:15 Sodium Chloride 10 ml Q8HR IV 08/21/25 06:00 09/02/25 06:26 10 ML Docusate Sodium 100 mg BIDPRN PRN PO 08/20/25 23:15 Acetaminophen 650 mg Q6HP PRN PO 08/20/25 23:15 Nitroglycerin 0.4 mg Q5MINP PRN SL 08/20/25 23:15 Hold Midazolam HCl 100 ml @ 1 mls/hr Q24H IV 08/21/25 01:45 09/02/25 01:07 2 MLS/HR Pantoprazole Sodium 40 mg DAILY IV 08/22/25 10:00 09/01/25 09:36 40 MG Hydralazine HCl 10 mg Q8HR PO 08/26/25 22:00 09/01/25 22:52 10 MG Enteral Nutritional Formula 1,000 ml 45ML/HR GT 08/29/25 12:45 09/02/25 04:45 1,000 ML Sildenafil Citrate 20 mg TID@08,14,20 NG 08/30/25 20:00 09/01/25 22:12 20 MG Fentanyl Citrate 250 ml @ 2.5 mls/hr Q24H IV 08/31/25 21:15 09/02/25 01:06 12.5 MLS/HR Amlodipine Besylate 10 mg DAILY PO 09/01/25 10:45 Examination: LUNGS:Normal, CVS:Normal, MSK:Normal laboratory and microbiology Laboratory Tests 09/02/25 03:13 Test 09/02/25 03:13 Range/Units Serum Glucose 92 74-106 mg/dL Microbiology Date/Time Source Procedure Growth Status 08/22/25 12:52 Urine - Meng Port Urine Culture - Final Complete 08/22/25 08:06 Nose MRSA Screen - Final Complete Problem List/Assessment/Plan Problem List/Assessment/Plan Acute kidney injury superimposed on advanced Chronic Kidney Disease stage 4/5 secondary hemodynamic mediated, ATN, FeNa > 2%, IV contrast, requiring intermittent HD Acute hypoxic respiratory failure, patient intubated on ventilator Community-acquired pneumonia Diabetes mellitus type 2 Nephrotic syndrome secondary to underlying diabetic nephropathy Hyperkalemia Hypernatremia due to insensible water loss Recommendations Continue with UF to 3 L as tolerated Epogen 4000 subQ 3 times weekly Hyperkalemia resolved Hypernatremia appropriately resolved Strict I&Os kidney ultrasound reported within normal limit IV antibiotics Avoid nephrotoxic medications We will continue to follow Plan discussed with: Other (Nurse) Dietary Evaluation Review Comments: Nutrition Recommendation: 1) EN Nepro Carbsteady @ 30ml/hr x 24hr (goal) along with Pro-stat 1 pk BID. Water flush 50ml Q6H if allowed, adjust PRN. TF at goal volume along with propofol & Pro-stat provide 1777 kcal (100%), 89 gm protein (83%), and 723 ml free water(including flush). 2) TPN if NPO >7 days 3) Monitor NPO status, lab values, weight trend, and I/O Expected Outcomes/Goals: Intake to meet >75% estimated needs Lab values to improve FU 2-3 days JEANNE WHITE MD Sep 02, 2025 11:16
--- NOTE | 2025-09-02 15:22 | DVHPN2 ---
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 HFrEF HTN 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 HYPERKALEMIA COPD HYPERLIPIDEMIA SIGN SX COMPLEX OF NOW WITH SOB CHEST PAIN RENAL FAILURE HYPERKALEMIA RESP FAILURE REQUIRING INTUBATION vital signs Vital Sign Date Time Temp Pulse Resp B/P (MAP) Pulse Ox O2 Delivery O2 Flow Rate FiO2 09/02/25 14:00 24 96 Mechanical Ventilator+ 45 45 09/02/25 14:00 82 09/02/25 14:00 109/44 (65) 09/02/25 11:30 99.0 99.0 Total Intake and Output 09/01/25 09/01/25 09/02/25 15:00 23:00 07:00 Intake Total 16 ml 207 ml 261 ml Output Total 50 ml 600 ml Balance 16 ml 157 ml -339 ml medications Current Medications Medications Dose Ordered Sig/Adri Route Start Time Stop Time Status Last Admin Dose Admin Albuterol 2.5 mg Q4HPRN PRN NEB 08/20/25 23:15 08/28/25 18:12 2.5 MG Ipratropium [place] 0.5 mg Q4HPRN PRN NEB 08/20/25 23:15 08/28/25 18:12 0.5 MG Multivit/Ca Carb/ B Cmplx/FA/Prenat 1 tab DAILY PO 08/21/25 10:00 09/02/25 11:21 1 TAB Diagnostic Test (Pha) 1 strip ACHS 08/21/25 07:00 09/02/25 11:21 1 STRIP Insulin Human Regular ACHS SC 08/21/25 07:00 09/02/25 11:39 2 UNITS Dextrose 50 ml UD PRN IV 08/20/25 23:15 Sodium Chloride 10 ml Q8HR IV 08/21/25 06:00 09/02/25 13:32 10 ML Docusate Sodium 100 mg BIDPRN PRN PO 08/20/25 23:15 Acetaminophen 650 mg Q6HP PRN PO 08/20/25 23:15 Nitroglycerin 0.4 mg Q5MINP PRN SL 08/20/25 23:15 Hold Midazolam HCl 100 ml @ 1 mls/hr Q24H IV 08/21/25 01:45 09/02/25 01:07 2 MLS/HR Pantoprazole Sodium 40 mg DAILY IV 08/22/25 10:00 09/02/25 11:21 40 MG Hydralazine HCl 10 mg Q8HR PO 08/26/25 22:00 09/01/25 22:52 10 MG Enteral Nutritional Formula 1,000 ml 45ML/HR GT 08/29/25 12:45 09/02/25 04:45 1,000 ML Sildenafil Citrate 20 mg TID@08,14,20 NG 08/30/25 20:00 09/02/25 13:55 20 MG Fentanyl Citrate 250 ml @ 2.5 mls/hr Q24H IV 08/31/25 21:15 09/02/25 01:06 12.5 MLS/HR Amlodipine Besylate 10 mg DAILY PO 09/01/25 10:45 laboratory and microbiology Laboratory Tests 09/02/25 03:13 Test 09/02/25 03:13 Range/Units Serum Glucose 92 74-106 mg/dL Problem List ORGANIC HEART DISEASE CAD HFrEF HTN 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 HYPERKALEMIA COPD HYPERLIPIDEMIA SIGN SX COMPLEX OF NOW WITH SOB CHEST PAIN RENAL FAILURE HYPERKALEMIA RESP FAILURE REQUIRING INTUBATION Assessment/Plan CORRECT HYPERKALEMIA CONSIDER ECHO IF INCONCLUSIVE CONSIDER L/RHC BNP 370 ABX DC BUMEX START IVF AT 100 CC/HR ADD LOKELMA K+ CORRECTED REPEAT BNP WILL PROCEED WITH L/RHC ON FRIDAY POSITIVE FOR INFLUENZA A AND B POSITIVE START WEANING PT CON IV FLUID L/RHC NL CORONARIES EF >50% LVEDP 17mmHg RHC RA 15-27mmHg RV 62/17 PA`66/ 18 PCWP 17 SEVERE PUL HYPERTENSION START REVATIO 20 MG TID HEMODIALYSIS IN AM CHEST CXR STILL WITH INFILTRATIVE PROCESS START WEAN SEDATION WITH HD Dietary Evaluation Review Comments: Nutrition Recommendation: 1) EN Nepro Carbsteady @ 30ml/hr x 24hr (goal) along with Pro-stat 1 pk BID. Water flush 50ml Q6H if allowed, adjust PRN. TF at goal volume along with propofol & Pro-stat provide 1777 kcal (100%), 89 gm protein (83%), and 723 ml free water(including flush). 2) TPN if NPO >7 days 3) Monitor NPO status, lab values, weight trend, and I/O Expected Outcomes/Goals: Intake to meet >75% estimated needs Lab values to improve FU 2-3 days Plan discussed with: Patient Critical Care Time(min): 35 RAMIN GARCIA MD Sep 02, 2025 15:22
--- NOTE | 2025-09-02 16:13 | DVHPNRES ---
Progress Note Date Seen: Sep 02, 2025 Resident Creating Document: SALLY MINOR RESIDENT Has the PT tested + for MRSA If YES, has PT been informed?: No Medical Necessity Reason Pt with a Central, PICC or Fol: Yes The following are medically ne: Central Line, Meng Catheter Reason for meng catheter: Strict I&O Subjective Review of Systems Ms. Marin is a 75-year-old female with prior medical history of CHF, COPD with home oxygen, gout, anxiety, diabetes mellitus, hyperlipidemia, hypertension, and PAD, who to [facility] with chief complaint of shortness of breath and back and midsternal non-radiating chest pain. At time of this evaluation the patient is intubated and sedated, history was taken from her daughter Susy at bedside and from medical record. Per her daughter, patient has been complaining of progressively worsening shortness of breath for the last 2 weeks associated with general malaise and orthopnea, describing very wet coughing sounds when her mother lays flat. She states that her mother began complaining of worsening shortness of breath associated with non-radiating midsternal chest pain which prompted her to call EMS. Per record, on seen she was saturating 74%, she was placed on CPAP with inspiration increasing to 88% on route to the emergency department. On evaluation in the ED, is afebrile, slightly hypertensive, and tachypneic saturating 81% which she was placed on BiPAP. Initial labs significant for leukocytosis of 11.3, with elevated hematocrit, and thrombocytopenia, Hyperkalemia, creatinine 4.09, BUN 46, and ABG significant for respiratory acidosis, troponins are negative, BNP 2515.41.Patient is influenza A and B positive. Chest x-ray shows moderate to severe pulmonary edema. Patient further deteriorated requiring intubation for respiratory distress. She was started on IV Lasix, IV methylprednisolone, hyperkalemia protocol, bicarbonate drip, and nitroglycerin drip. On my initial evaluation in the ED, the patient is sedated, intubated, and mechanically ventilated, currently not on pressors. Prior Medical history: CHF, COPD, gout, anxiety, type 2 diabetes mellitus, hyperlipidemia, hypertension, PAD, pulmonary hypertension Previous surgical history: Left leg stenting for PAD Allergies: Denies Social history: Daughter refers the patient smokes cigarettes with cessation approximately 20 years ago Home medications: Allopurinol, insulin, gabapentin, simvastatin, tadalafil 08/26/2025: Patient was seen in ICU. She is sedated, intubated, mechanically ventilated, not on pressors. CBC shows thrombocytopenia, persists with hyperkalemia, kidney function continues to worsen. UA is significant for UTI. She is being followed by nephrology who is currently recommending recommended a kidney ultrasound and hyperkalemia protocol to reduce serum potassium. She was evaluated by her surgical orderly, Dr. Bahena, who recommends echocardiogram, if inconclusive possible R/LHC. Tube feeds will be initiated. We will continue to monitor 08/27/25: Patient is seen and examined at bedside, , intubated, mechanically ventilated, not on pressors. She was evaluated by her surgical orderly, Dr. Bahena, who recommends echocardiogram, if inconclusive possible R/LHC. Tube feeds will be initiated. We will continue to monitor. 08/28/25 Sedation reduced today for neurologic assessment; patient remains sedated but arousable to stimulation. * IV fluid optimization initiated: Started 0.9% NS at 75 mL/hr, given concern for worsening COLE (Cr 4.26 today - 4.03 yesterday). * Strictly discontinued diuretics (Bumex/Lasix) due to elevated creatinine. * No peripheral edema today. * Left heart cath + right heart cath planned for tomorrow ONLY after renal function improves; currently high risk for contrast-induced nephropathy due to low GFR. * Pre-cath renal protection plan reviewed: * 250 mL NS bolus 1 hr prior * NS at 100 mL/hr for 5 hours after * WBC 13.6 (leukocytosis), Hgb 12.3, Plt 122 (mild thrombocytopenia). * ABG: pH 7.37, PCO2 40.2, PO2 58.3 (low), HCO2 23, O2 sat 87% (low). * Current ventilator settings: FiO2 40%, PEEP 5, TV 450 mL. 08/29/2025: Patient seen in the ICU. She is intubated, sedated, and mechanically ventilated. She is scheduled for L/R heart cath tomorrow, for which she is being given fluids in preparation for. She is afebrile, normocardic, and with stable BP occasionally high. WBCs are elevated and renal function is worsening. Chest Xray has shows minor improvement. Lasix has been discontinued by cardiology. 08/30/2025: Patient seen in the ICU. She is intubated, sedated, and mechanically ventilated. She will go for L/R heart cath today. Fluids were given, another 250 cc has been ordered to be given 1 hour before the procedure. She is afebrile, normocardic, occasionally breathing over the vent, mostly hypertensive. WBCs are down trending, renal function is worsening. Both nephrology and cardiology are on board. Per nurse, patient has not had a bowel movement in 4 days, for which lactulose will be given. Per nephrology, patient is to be placed on NS at 100 cc/hr for 5 hours after procedure with 100 mg of Furosemide IV. Per Dr. Bahena, the patient is not to receive furosemide. We will continue to monitor. 08/31/2025: Patient seen in the ICU. She is intubated, sedated, and mechanically ventilated. She is afebrile, normocardic, with soft blood pressure. Labs are significant with worsening kidney function. She underwent L/R heart cath yesterday. Findings significant with severe pulmonary hypertension pulmonary artery pressure 66/18 mmHg and capillary wedge of 17 mmHg, she was started on sildenafil by Dr. Bahena. She will undergo hemodialysis today. We will continue to monitor. 09/01/2025: Patient seen in the ICU. She is intubated, sedated, and mechanically ventilated. She is afebrile, normocardic, with stable blood pressure. Labs show improved kidney function after hemodialysis yesterday, 2L were pulled yesterday. She will undergo dialysis again tomorrow. We will begin to wean the off the ventilator. 09/02/2025: Patient seen in the ICU. She is intubated, sedated, and mechanically ventilated. She is afebrile, normocardic, with stable BP. Labs show minor elevation in WBCs which may be secondary to hemoconcentration. Patient had dialysis today, 2.2 L were drawn. Versed has been discontinued and Fentanyl has been decreased. Patient was placed on on CPAP 16/5 today for exercise of respiratory muscles, she was pulling Vt of 450-550, she will remain on on full support overnight and CPAP as tolerated during the day with consideration of extubation once mentation improves and CPAP at 8/5 is achieved. Objective vital signs Vital Sign Date Time Temp Pulse Resp B/P (MAP) Pulse Ox O2 Delivery O2 Flow Rate FiO2 09/02/25 14:00 24 96 Mechanical Ventilator+ 45 45 09/02/25 14:00 82 09/02/25 14:00 109/44 (65) 09/02/25 11:30 99.0 99.0 Total Intake and Output 09/01/25 09/01/25 09/02/25 15:00 23:00 07:00 Intake Total 16 ml 207 ml 261 ml Output Total 50 ml 600 ml Balance 16 ml 157 ml -339 ml medications Current Medications Medications Dose Ordered Sig/Adri Route Start Time Stop Time Status Last Admin Dose Admin Albuterol 2.5 mg Q4HPRN PRN NEB 08/20/25 23:15 08/28/25 18:12 2.5 MG Ipratropium [place] 0.5 mg Q4HPRN PRN NEB 08/20/25 23:15 08/28/25 18:12 0.5 MG Multivit/Ca Carb/ B Cmplx/FA/Prenat 1 tab DAILY PO 08/21/25 10:00 09/02/25 11:21 1 TAB Diagnostic Test (Pha) 1 strip ACHS 08/21/25 07:00 09/02/25 11:21 1 STRIP Insulin Human Regular ACHS SC 08/21/25 07:00 09/02/25 11:39 2 UNITS Dextrose 50 ml UD PRN IV 08/20/25 23:15 Sodium Chloride 10 ml Q8HR IV 08/21/25 06:00 09/02/25 13:32 10 ML Docusate Sodium 100 mg BIDPRN PRN PO 08/20/25 23:15 Acetaminophen 650 mg Q6HP PRN PO 08/20/25 23:15 Nitroglycerin 0.4 mg Q5MINP PRN SL 08/20/25 23:15 Hold Midazolam HCl 100 ml @ 1 mls/hr Q24H IV 08/21/25 01:45 09/02/25 01:07 2 MLS/HR Pantoprazole Sodium 40 mg DAILY IV 08/22/25 10:00 09/02/25 11:21 40 MG Hydralazine HCl 10 mg Q8HR PO 08/26/25 22:00 09/01/25 22:52 10 MG Enteral Nutritional Formula 1,000 ml 45ML/HR GT 08/29/25 12:45 09/02/25 04:45 1,000 ML Sildenafil Citrate 20 mg TID@08,14,20 NG 08/30/25 20:00 09/02/25 13:55 20 MG Fentanyl Citrate 250 ml @ 2.5 mls/hr Q24H IV 08/31/25 21:15 09/02/25 01:06 12.5 MLS/HR Amlodipine Besylate 10 mg DAILY PO 09/01/25 10:45 Examination General: Patient is intubated, sedated, mechanically ventilated, RASS -3, is reactive to painful stimulus HEENT: Normocephalic, atraumatic, pin point pupils sluggish, no EOM, pink conjunctiva, pink moist mucous membrane, ET tube in place, left internal jugular central line in place, orogastric tube in place Respiratory/pulmonary: Bilateral chest expansion, improved breath sounds bilaterally Cardiovascular: Normal RRR Abdomen: Obese, Abdomen nondistended, normal bowel sounds, soft, no grimacing is observed on palpation, no palpable masses. Extremities: No deformities, edema of bilateral hands, edema has improved, skin of bilateral lower extremities are extremely dry, pulses 2+ bilateral lower extremities, presence of Frank catheter in right groin region Skin: No rashes or pruritus, there is no sacral edema present at this time. Neurological: cough and gag reflex present laboratory and microbiology Laboratory Tests 09/02/25 03:13 Test 09/02/25 03:13 Range/Units Serum Glucose 92 74-106 mg/dL Microbiology Date/Time Source Procedure Growth Status 08/22/25 12:52 Urine - Meng Port Urine Culture - Final Complete 08/22/25 08:06 Nose MRSA Screen - Final Complete Problem List/Assessment/Plan Problem List/Assessment/Plan Neurology # Sedated - Versed Discontinued - Propofol: Discontinued - Fentanyl 50 Cardiovascular # Acute on chronic HFrEF # Pulmonary Edema - BNP 2515.41 --> 370 - Chest xray 08/20/2025: Moderate to severe pulmonary edema - Chest xray 08/21/2025: Cardiomegaly with pulmonary venous congestion and edema - Echocardiogram 01/14/2022: EF > 60%, Limited echo windows, mild TR, MR - New echocardiogram has been ordered, pending read - Cardiology: Pending echo, considered R/LHC if inconclusive , discontinue bumex drip - Laxis 40 mg IV daily - Per nephrology: Start bumex drip + albumin and D5W 75 cc/hour -- Bumex drip discontinued by cardiology -- D5W has been discontinued due to resolution of hypernatremia - Chest Xray shows worsening, for which lasix 40 mg BID will be initiated - Lasix has been discontinued by Cardiology #Hypertension - Amlodipine 10 mg NG daily - Hydralazine #CAD - R/L heart catheterization 08/30/2025: Left main, LAD and circumflex are patent, RCA patent, E is 50-55% #Severe pulmonary hypertension - R/L heart catheterization 08/30/2025: RA pressure 18 mmHg, RV pressure 62/16 mmHg, pulmonary artery pressure 66/18 mmHg, capillary wedge pressure: 17 mmHg - Per cardiology: Sildenafil 20mg NG TID, originally 40 but this was lowered Respiratory # Ventilator - intubated (08/21/2025) - On [facility] vent : VCAC Mode RR 24 TV 450ml, PEEP Of 5 and FiO2 of 40% - Patient was placed on on CPAP 11/02 today for exercise of respiratory muscles, she was pulling Vt of 450-550, she will remain on on full support overnight and CPAP as tolerated during the day for exercise. Currently no plan to extubate - Extubation will be considered once mentation has improved and she can tolerate CPAP at 05/03. # Acute hypercapnic respiratory failure secondary to pulmonary edema # Acute COPD exacerbation - Methylprednisolone 40 mg IV, discontinued - Ipratropium medneb - Albuterol medneb - Ceftriaxone 1 g IV daily #Influenza A and B - Tamiflu 30 mg BID suspension, discontinued #Respiratory acidosis GI # Peptic ulcer prophylaxis -Pantoprazole 40 mg IV daily # Constipation - Lactulose 15 mL GT # Meng catheter # Possible Complicated UTI, present on admission - Ceftriaxone 1 g IV daily, discontinued Nephrology # COLE on CKD likely hemodynamically mediated/ VMN - NS 1000 cc bolus + 250 cc bolus in preparation for heart cath - NS 100cc/hr for 5 hours after procedure - Furosemide 100 mg IV after procedure, this was discontinued at the request of cardiology - Dialysis catheter placed by Dr. Bahena in right femoral region - Hemodialysis: 08/31 #Hyperkalemia, resolved - Per nephrology: trial of forced diuresis to enhance potassium excretion, serial chemistry panels, IV bicarbonate infusion, and avoidance of IV contrast if able, currently without urgent indication for kidney replacement therapy - Bicarbonate drip has been dc'd - Per Cardiology: Zoran . #Acute metabolic acidosis #Hypernatremia, resolved - D5W, discontinued Infectious disease # Influenza A and B Pneumonia - Tamiflu 30 mg BID suspension, discontinued Hem/onc #Thrombocytopenia, resolved - Monitor Endocrine #Type 2 diabetes mellitus - SSI -Accu cheks DVT prophylaxis: SCD PUD prophylaxis: Pantoprazole 40 mg IV daily Lines -L femoral Central line 08/20/2025 - discontinued on 08/29/2025 -L internal jugular central line 08/29/2025 -Meng catheter 08/20/2025 -ET tube: 08/21/2025 Nutrition: Nepro at a rate of 30 Drips during [facility] ventilation Versed Discontinued Fentanyl 50 Propofol: Discontinued Nitroglycerin: Discontinued Nicardipine drip: Discontinued Bicarbonate drip: Discontinued Patient will have sedation vacation today with aims to begin to wean the patient off ventilator. Critical care time 54 minutes excluding procedure. Code status discussed greater than 20 minutes: Full CODE STATUS. Daughter, Susy, was contacted via telephone and updated on her mother's condition. Plan discussed with Plan discussed with: Daughter, Other (Nurse (Kelly)) My Orders My Orders Orders - SALLY MINOR RESIDENT Procedure Category Date Status Time Abg W/ Co-Ox RT 09/02/25 Logged 04:00 Chest Xray 1 View XY 09/02/25 Resulted 04:00 * Customer Service Trainer CONS 09/02/25 Transmitted Consult Dietary Evaluation Review Comments: Nutrition Recommendation: 1) EN Nepro Carbsteady @ 30ml/hr x 24hr (goal) along with Pro-stat 1 pk BID. Water flush 50ml Q6H if allowed, adjust PRN. TF at goal volume along with propofol & Pro-stat provide 1777 kcal (100%), 89 gm protein (83%), and 723 ml free water(including flush). 2) TPN if NPO >7 days 3) Monitor NPO status, lab values, weight trend, and I/O Expected Outcomes/Goals: Intake to meet >75% estimated needs Lab values to improve FU 2-3 days Visit Coding STANDARD RES Billing Provider: RAVI SABA MD Date of Service if different f: Sep 02, 2025 Common Visit Codes: 92820-[id number] CARE 30-74 MIN SALLY MINOR RESIDENT Sep 02, 2025 16:13
--- NOTE | 2025-09-02 22:55 | DVHPN2 ---
Subjective DOS: 09/02/2025 Patient seen and examined at bedside. Sedated, intubated on mechanical ventilator. Overnight events reviewed. Changes from previous H/P or p: No Changes Eyes: No Pain, No Vision change, No Conjunctivae inflammation, No Eyelid inflammation, No Other, No Redness ENT: No Ear pain, No Ear discharge, No Nose pain, No Nose discharge, No Nose congestion, No Mouth pain, No Mouth swelling, No Throat pain, No Throat swelling, No Other Cardiovascular: Chest Pain; No Palpitations, No Orthopnea, No Paroxysmal Noc. Dyspnea, No Edema, No Lt Headedness, No Other Respiratory: No Cough, No Dry; Shortness of breath; No SOB with excertion, No Wheezing, No Hemoptysis, No Pleuritic Pain, No Sputum; Other (SOB at rest) Gastrointestinal: No Nausea, No Vomiting, No Abdominal Pain, No Diarrhea, No Constipation, No Melena, No Hematochezia, No Other Genitourinary: No Dysuria, No Frequency, No Incontinence, No Hematuria, No Retention; Other (Schuster catheter in place) Musculoskeletal: other (Bilateral leg discoloration); No neck pain, No shoulder pain, No arm pain, No back pain, No hand pain, No leg pain, No foot pain Skin: No Rash, No Lesions, No Jaundice, No Bruising; Other (Left foot wound) Objective Vitals Vital Signs Date Time Temp Pulse Resp B/P (MAP) Pulse Ox O2 Delivery O2 Flow Rate FiO2 09/02/25 22:33 96 25 143/66 (91) 98 45 09/02/25 20:00 Mechanical Ventilator+ 09/02/25 16:15 98.2 98.2 Intake/Output Intake and Output 09/02/25 07:00 Intake Total 484 ml Output Total 650 ml Balance -166 ml IV Total 43 ml Tube Feeding 441 ml Output Urine Total 350 ml Gastric Drainage Total 300 ml Exam Gen.: Patient lying in bed in medical ICU. Sedated, intubated on mechanical ventilator. Head: Normocephalic, atraumatic. Eyes: PERRLA. Ears: Normal external anatomy. Throat: Endotracheal tube and orogastric tube in place. Neck: Supple, trachea midline. Chest: Transmitted breath sounds bilaterally. Decreased air entry bilaterally. No wheezing. Bibasilar crackles. Cardiovascular: Positive S1, positive S2. Regular rate and rhythm. Abdomen: Positive bowel sounds in all 4 quadrants. Soft, nontender, nondistended. : Schuster in place. Normal external genitalia. Rectal: Deferred. Skin: Warm, dry. Intact. Extremities: 2+ radial pulses bilaterally. No lower extremity edema. Neuro: Sedated. Medications Current Medications Medications Dose Ordered Sig/Adri Route Start Time Stop Time Status Last Admin Dose Admin Albuterol 2.5 mg Q4HPRN PRN NEB 08/20/25 23:15 08/28/25 18:12 2.5 MG Ipratropium [place] 0.5 mg Q4HPRN PRN NEB 08/20/25 23:15 08/28/25 18:12 0.5 MG Multivit/Ca Carb/ B Cmplx/FA/Prenat 1 tab DAILY PO 08/21/25 10:00 09/02/25 11:21 1 TAB Diagnostic Test (Pha) 1 strip ACHS 08/21/25 07:00 09/02/25 21:21 1 STRIP Insulin Human Regular ACHS SC 08/21/25 07:00 09/02/25 21:37 2 UNITS Dextrose 50 ml UD PRN IV 08/20/25 23:15 Sodium Chloride 10 ml Q8HR IV 08/21/25 06:00 09/02/25 21:20 10 ML Docusate Sodium 100 mg BIDPRN PRN PO 08/20/25 23:15 Acetaminophen 650 mg Q6HP PRN PO 08/20/25 23:15 Nitroglycerin 0.4 mg Q5MINP PRN SL 08/20/25 23:15 Hold Midazolam HCl 100 ml @ 1 mls/hr Q24H IV 08/21/25 01:45 09/02/25 01:07 2 MLS/HR Pantoprazole Sodium 40 mg DAILY IV 08/22/25 10:00 09/02/25 11:21 40 MG Hydralazine HCl 10 mg Q8HR PO 08/26/25 22:00 09/01/25 22:52 10 MG Sildenafil Citrate 20 mg TID@08,14,20 NG 08/30/25 20:00 09/02/25 21:20 20 MG Fentanyl Citrate 250 ml @ 2.5 mls/hr Q24H IV 08/31/25 21:15 09/02/25 01:06 12.5 MLS/HR Amlodipine Besylate 10 mg DAILY PO 09/01/25 10:45 Enteral Nutritional Formula 1,000 ml 30ML/HR GT 09/02/25 18:45 Amino Acid Protein 30 ml Q6HR GT 09/03/25 00:00 Laboratory Results Laboratory Tests 09/02/25 03:13 Chemistry Test 09/02/25 03:13 Calcium Level 8.9 mg/dL (8.7-10.4) Magnesium Level 2.1 mg/dL (1.6-2.6) Urinalysis Test 08/22/25 11:43 08/22/25 12:52 Urine Color Light-yellow (Yellow) Urine Clarity Turbid (Clear) H Urine pH 6.5 (5.0-9.0) Urine Specific [place] 1.011 (1.001-1.035) Urine Protein 2+ (Negative) H Urine Ketones Negative (Negative) Urine Blood 2+ /uL (Negative) H Urine Nitrite Negative (Negative) Urine Bilirubin Negative (Negative) Urine Urobilinogen Normal mg/dL (Negative) Urine Leukocyte Esterase 2+ /uL (Negative) Urine RBC 151 /hpf (0 - 4) Urine WBC Clumps Present /hpf (None Seen) Urine Microscopic WBC 23 /HPF (0-5) H Urine Squamous Epithelial Cells Few /hpf (<5) Urine Bacteria Few /hpf (None Seen) H Urine Hyaline Casts Mod /lpf (0 - 2) Urine Mucus Few (None Seen) Urine Protein/Creatinine Ratio 4.08 Urine Glucose 1+ mg/dL (Normal) H Urine Total Protein 204.4 mg/dL (1-14) H Urine Creatinine 52.93 mg/dL (30.0-125.0) Urine Sodium 114 mmol/L (40-220) Blood Gas Results Test 09/02/25 07:57 Arterial Blood pH 7.340 (7.350-7.450) FiO2 % 45.0 Microbiology Microbiology Date/Time Source Procedure Growth Status 08/22/25 12:52 Urine - Schuster Port Urine Culture - Final Complete 08/22/25 08:06 Nose MRSA Screen - Final Complete Assessment/Plan Assessment/Plan Impression: Acute hypoxic respiratory failure Acute hypercapnic respiratory failure On mechanical ventilator Pulmonary edema Pulmonary hypertension Metabolic acidosis Acute renal failure Morbid obesity Events: Remains on vent support On AC mode; RR 24, VT 450, PEEP 5, FiO2 45% Taper FiO2 as tolerated S/p hemodialysis - pulled 2.2 liters Nephrology recs appreciated Continue antibiotics. Slight leukocytosis - WBC of 12.3 K ABG reviewed, notable for acidemia d/t CO2 retention. Placed on CPAP with PS 16, PEEP 5 Pulling VT 450-550 mL Will continue with exercise during daytime Full support overnight Will consider extubation once mentation improves and on CPAP with PS 8, PEEP 5. Labs and imaging reviewed. Rest of plan as noted below. Plan: s/p intubation on mechanical ventilator. On AC mode; RR 24, VT 450, PEEP 5, FiO2 45% Titrate FIO2 to keep O2 saturation above 90%. VAP bundle. Daily ABG and CXR while intubated Sedate for ventilator synchrony Continue antibiotics. IV fluids at 100 ml/hr. Tube feeds for nutritional support Pressors as necessary for hemodynamic support Titrate to keep mean arterial pressure greater than 65 mmHg. Hemodialysis per Nephrology Monitor renal function Monitor electrolytes. Supplement as necessary. Monitor ins and outs. Recommend diet and lifestyle modifications for weight reduction Obesity complicates all care GI prophylaxis. DVT prophylaxis. Prognosis: Poor given patient's multiple co-morbidities. Condition: Critical Rest of plan per hospitalist and other consultants. A total of 35 minutes of critical care time was spent reviewing the patient record, examining the patient, making a diagnostic and therapeutic plan, discussing this plan with the medical personnel, following up on diagnostic studies and following the patient for clinical stability excluding any and all procedures. At least 50% of this time was spent in direct, [id number] contact. Thank you, Dr. Mike Zheng, for allowing me to participate in this patient's care. Further recommendations will depend on the patient's clinical course. Please do not hesitate to contact me if you have any questions or concerns. This medical document was created using an electronic medical record system with [employer] dictation system. Although these documentations are being carefully reviewed, there may still be some phonetic and typographical changes. The errors are purely typographical, due to imperfection on the software program, and do not reflect any compromise in the patient's medical care. Plan discussed with: Other (MARU Mendoza) Visit Coding Pulmonary Billing Provider: RAVI SABA MD Date of Service if different f: Sep 02, 2025 Common Visit Codes: [id number] INP/OBS CARE(HIGH), [id number] CARE 30-74 MIN RAVI SABA MD Sep 02, 2025 22:55
[2025-09-03] VITALS (117 sets, daily range): BP systolic 99–196; BP diastolic 46–123; PULSE 68–108; RESP 0–36; TEMP 97.4–98.8; O2SAT 88–99
[2025-09-03] MEDS: Pro-Stat SF 30ml Vanilla GT SCH (00:12)
[2025-09-03 03:53] LABS: Nucleated Red Blood Cells % 0.0 %
[2025-09-03 03:55] LABS: Hematocrit 39.8 % (36.0-46.0); Hemoglobin 11.3 g/dL (12.2-16.2); Mean Corpuscular Hemoglobin 18.9 pg (28.0-32.0); Mean Corpuscular Volume 66.2 fL (80.0-100.0)
[2025-09-03 04:07] LABS: Chloride 103 mmol/L (98-107); Potassium 3.6 mmol/L (3.5-5.1); Sodium 143 mmol/L (136-145)
[2025-09-03 04:08] LABS: Anion Gap 11 (5-15); Calcium 8.9 mg/dL (8.7-10.4); Carbon Dioxide 29 mmol/L (20-31)
[2025-09-03 04:13] LABS: BUN/Creatinine Ratio 11.0 (10.0-20.0)
[2025-09-03 04:14] LABS: Magnesium 2.2 mg/dL (1.6-2.6)
[2025-09-03 04:16] LABS: Blood Urea Nitrogen 47 mg/dL (9-23); Glucose 124 mg/dL (74-106)
--- NOTE | 2025-09-03 06:34 | DVH ---
CHEST RADIOGRAPH Indication: Intubated Technique: Single frontal view of the chest was obtained COMPARISON: XY CHEST XRAY 1 VIEW on DOS: 09/02/25, XY CHEST XRAY 1 VIEW on DOS: 09/01/25, XY CHEST XRAY 1 VIEW on DOS: 08/31/25, XY CHEST PORTABLE on DOS: 08/30/25, XY CHEST XRAY 1 VIEW on DOS: 08/30/25 FINDINGS: Lines and Tubes: Unchanged. Lungs: Stable diffuse increased prominence of the pulmonary vasculature and bibasilar pulmonary airspace disease. Stable appearing bilateral pleural effusions. No pneumothorax. Cardiomediastinal contours: Cardiomegaly. Bones: Unremarkable IMPRESSION: 1. Stable diffuse increased prominence of the pulmonary vasculature and Bibasilar pulmonary airspace disease. 2. Stable bilateral pleural effusions. 3. Cardiomegaly. 4. Lines and tubes unchanged.
[2025-09-03 07:48] LABS: Base Excess -0.9 mmol/L (-2.0-3.0)
--- NOTE | 2025-09-03 10:30 | DVHPN2 ---
Progress Note Date Seen: Sep 03, 2025 Has the PT tested + for MRSA If YES, has PT been informed?: No Medical Necessity Reason Pt with a Central, PICC or Fol: Yes The following are medically ne: Central Line, Meng Catheter Reason for meng catheter: Strict I&O Subjective Review of Systems: RESPIRATORY:Abnormal Other Systems: Patient seen and examined by myself today in follow-up, patient remained intubated on ventilator Objective vital signs Vital Sign Date Time Temp Pulse Resp B/P (MAP) Pulse Ox O2 Delivery O2 Flow Rate FiO2 09/03/25 10:16 90 27 174/76 (108) 92 40 09/03/25 09:41 Mechanical Ventilator+ 09/03/25 04:00 98.5 98.5 Total Intake and Output 09/02/25 09/02/25 09/03/25 15:00 23:00 07:00 Intake Total 300 ml 2456 ml Output Total 100 ml 300 ml Balance 200 ml 2156 ml medications Current Medications Medications Dose Ordered Sig/Adri Route Start Time Stop Time Status Last Admin Dose Admin Albuterol 2.5 mg Q4HPRN PRN NEB 08/20/25 23:15 09/03/25 06:47 2.5 MG Ipratropium [place] 0.5 mg Q4HPRN PRN NEB 08/20/25 23:15 09/03/25 06:48 0.5 MG Multivit/Ca Carb/ B Cmplx/FA/Prenat 1 tab DAILY PO 08/21/25 10:00 09/02/25 11:21 1 TAB Diagnostic Test (Pha) 1 strip ACHS 08/21/25 07:00 09/03/25 06:18 1 STRIP Insulin Human Regular ACHS SC 08/21/25 07:00 09/02/25 21:37 2 UNITS Dextrose 50 ml UD PRN IV 08/20/25 23:15 Sodium Chloride 10 ml Q8HR IV 08/21/25 06:00 09/03/25 06:18 10 ML Docusate Sodium 100 mg BIDPRN PRN PO 08/20/25 23:15 Acetaminophen 650 mg Q6HP PRN PO 08/20/25 23:15 Nitroglycerin 0.4 mg Q5MINP PRN SL 08/20/25 23:15 Hold Midazolam HCl 100 ml @ 1 mls/hr Q24H IV 08/21/25 01:45 09/02/25 01:07 2 MLS/HR Pantoprazole Sodium 40 mg DAILY IV 08/22/25 10:00 09/02/25 11:21 40 MG Hydralazine HCl 10 mg Q8HR PO 08/26/25 22:00 09/01/25 22:52 10 MG Sildenafil Citrate 20 mg TID@08,14,20 NG 08/30/25 20:00 09/02/25 21:20 20 MG Fentanyl Citrate 250 ml @ 2.5 mls/hr Q24H IV 08/31/25 21:15 09/03/25 01:06 5 MLS/HR Amlodipine Besylate 10 mg DAILY PO 09/01/25 10:45 Enteral Nutritional Formula 1,000 ml 30ML/HR GT 09/02/25 18:45 Amino Acid Protein 30 ml Q6HR GT 09/03/25 00:00 09/03/25 00:12 30 ML Examination: LUNGS:Abnormal, CVS:Normal, MSK:Abnormal laboratory and microbiology Laboratory Tests 09/03/25 03:04 Test 09/03/25 03:04 Range/Units Serum Glucose 124 H 74-106 mg/dL Microbiology Date/Time Source Procedure Growth Status 08/22/25 12:52 Urine - Meng Port Urine Culture - Final Complete 08/22/25 08:06 Nose MRSA Screen - Final Complete Problem List/Assessment/Plan Problem List/Assessment/Plan ESRD requiring intermittent HD Acute hypoxic respiratory failure, patient intubated on ventilator Community-acquired pneumonia Diabetes mellitus type 2 Nephrotic syndrome secondary to underlying diabetic nephropathy Hyperkalemia Hypernatremia due to insensible water loss Recommendations Next hemodialysis 09/05 Epogen 4000 subQ 3 times weekly Hyperkalemia resolved Hypernatremia appropriately resolved Strict I&Os kidney ultrasound reported within normal limit IV antibiotics Avoid nephrotoxic medications We will continue to follow Plan discussed with: Other (Nurse) Dietary Evaluation Review Comments: Nutrition Recommendation: 1) EN Nepro Carbsteady @ 30ml/hr x 24hr (goal) along with Pro-stat 1 pk BID. Water flush 50ml Q6H if allowed, adjust PRN. TF at goal volume along with propofol & Pro-stat provide 1777 kcal (100%), 89 gm protein (83%), and 723 ml free water(including flush). 2) TPN if NPO >7 days 3) Monitor NPO status, lab values, weight trend, and I/O Expected Outcomes/Goals: Intake to meet >75% estimated needs Lab values to improve FU 2-3 days JEANNE WHITE MD Sep 03, 2025 10:30
[2025-09-03] MEDS: DEXMEDETOMIDINE HCL IN D5W 100 ML IV SCH (11:00)
--- NOTE | 2025-09-03 14:31 | DVHPNRES ---
Progress Note Date Seen: Sep 03, 2025 Resident Creating Document: JILLIAN SMITH RESIDENT Has the PT tested + for MRSA If YES, has PT been informed?: No Medical Necessity Reason Pt with a Central, PICC or Fol: Yes The following are medically ne: Central Line, Meng Catheter Reason for meng catheter: Strict I&O Subjective Review of Systems Ms. Marin is a 75-year-old female with prior medical history of CHF, COPD with home oxygen, gout, anxiety, diabetes mellitus, hyperlipidemia, hypertension, and PAD, who to [facility] with chief complaint of shortness of breath and back and midsternal non-radiating chest pain. At time of this evaluation the patient is intubated and sedated, history was taken from her daughter Susy at bedside and from medical record. Per her daughter, patient has been complaining of progressively worsening shortness of breath for the last 2 weeks associated with general malaise and orthopnea, describing very wet coughing sounds when her mother lays flat. She states that her mother began complaining of worsening shortness of breath associated with non-radiating midsternal chest pain which prompted her to call EMS. Per record, on seen she was saturating 74%, she was placed on CPAP with inspiration increasing to 88% on route to the emergency department. On evaluation in the ED, is afebrile, slightly hypertensive, and tachypneic saturating 81% which she was placed on BiPAP. Initial labs significant for leukocytosis of 11.3, with elevated hematocrit, and thrombocytopenia, Hyperkalemia, creatinine 4.09, BUN 46, and ABG significant for respiratory acidosis, troponins are negative, BNP 2515.41.Patient is influenza A and B positive. Chest x-ray shows moderate to severe pulmonary edema. Patient further deteriorated requiring intubation for respiratory distress. She was started on IV Lasix, IV methylprednisolone, hyperkalemia protocol, bicarbonate drip, and nitroglycerin drip. On my initial evaluation in the ED, the patient is sedated, intubated, and mechanically ventilated, currently not on pressors. Prior Medical history: CHF, COPD, gout, anxiety, type 2 diabetes mellitus, hyperlipidemia, hypertension, PAD, pulmonary hypertension Previous surgical history: Left leg stenting for PAD Allergies: Denies Social history: Daughter refers the patient smokes cigarettes with cessation approximately 20 years ago Home medications: Allopurinol, insulin, gabapentin, simvastatin, tadalafil 08/26/2025: Patient was seen in ICU. She is sedated, intubated, mechanically ventilated, not on pressors. CBC shows thrombocytopenia, persists with hyperkalemia, kidney function continues to worsen. UA is significant for UTI. She is being followed by nephrology who is currently recommending recommended a kidney ultrasound and hyperkalemia protocol to reduce serum potassium. She was evaluated by her mac artist, Dr. Bahena, who recommends echocardiogram, if inconclusive possible R/LHC. Tube feeds will be initiated. We will continue to monitor 08/27/25: Patient is seen and examined at bedside, , intubated, mechanically ventilated, not on pressors. She was evaluated by her mac artist, Dr. Bahena, who recommends echocardiogram, if inconclusive possible R/LHC. Tube feeds will be initiated. We will continue to monitor. 08/28/25 Sedation reduced today for neurologic assessment; patient remains sedated but arousable to stimulation. * IV fluid optimization initiated: Started 0.9% NS at 75 mL/hr, given concern for worsening COLE (Cr 4.26 today - 4.03 yesterday). * Strictly discontinued diuretics (Bumex/Lasix) due to elevated creatinine. * No peripheral edema today. * Left heart cath + right heart cath planned for tomorrow ONLY after renal function improves; currently high risk for contrast-induced nephropathy due to low GFR. * Pre-cath renal protection plan reviewed: * 250 mL NS bolus 1 hr prior * NS at 100 mL/hr for 5 hours after * WBC 13.6 (leukocytosis), Hgb 12.3, Plt 122 (mild thrombocytopenia). * ABG: pH 7.37, PCO2 40.2, PO2 58.3 (low), HCO2 23, O2 sat 87% (low). * Current ventilator settings: FiO2 40%, PEEP 5, TV 450 mL. 08/29/2025: Patient seen in the ICU. She is intubated, sedated, and mechanically ventilated. She is scheduled for L/R heart cath tomorrow, for which she is being given fluids in preparation for. She is afebrile, normocardic, and with stable BP occasionally high. WBCs are elevated and renal function is worsening. Chest Xray has shows minor improvement. Lasix has been discontinued by cardiology. 08/30/2025: Patient seen in the ICU. She is intubated, sedated, and mechanically ventilated. She will go for L/R heart cath today. Fluids were given, another 250 cc has been ordered to be given 1 hour before the procedure. She is afebrile, normocardic, occasionally breathing over the vent, mostly hypertensive. WBCs are down trending, renal function is worsening. Both nephrology and cardiology are on board. Per nurse, patient has not had a bowel movement in 4 days, for which lactulose will be given. Per nephrology, patient is to be placed on NS at 100 cc/hr for 5 hours after procedure with 100 mg of Furosemide IV. Per Dr. Bahena, the patient is not to receive furosemide. We will continue to monitor. 08/31/2025: Patient seen in the ICU. She is intubated, sedated, and mechanically ventilated. She is afebrile, normocardic, with soft blood pressure. Labs are significant with worsening kidney function. She underwent L/R heart cath yesterday. Findings significant with severe pulmonary hypertension pulmonary artery pressure 66/18 mmHg and capillary wedge of 17 mmHg, she was started on sildenafil by Dr. Bahena. She will undergo hemodialysis today. We will continue to monitor. 09/01/2025: Patient seen in the ICU. She is intubated, sedated, and mechanically ventilated. She is afebrile, normocardic, with stable blood pressure. Labs show improved kidney function after hemodialysis yesterday, 2L were pulled yesterday. She will undergo dialysis again tomorrow. We will begin to wean the off the ventilator. 09/02/2025: Patient seen in the ICU. She is intubated, sedated, and mechanically ventilated. She is afebrile, normocardic, with stable BP. Labs show minor elevation in WBCs which may be secondary to hemoconcentration. Patient had dialysis today, 2.2 L were drawn. Versed has been discontinued and Fentanyl has been decreased. Patient was placed on on CPAP 16/5 today for exercise of respiratory muscles, she was pulling Vt of 450-550, she will remain on on full support overnight and CPAP as tolerated during the day with consideration of extubation once mentation improves and CPAP at 8/5 is achieved. 09/03/2025: Patient seen in the ICU. She is intubated, sedated, and mechanically ventilated. Patient was on CPAP trial for 45 minutes this morning, consideration of extubation once mentation improves. Objective vital signs Vital Sign Date Time Temp Pulse Resp B/P (MAP) Pulse Ox O2 Delivery O2 Flow Rate FiO2 09/03/25 14:10 95/53 09/03/25 13:15 75 0 93 09/03/25 12:25 40 09/03/25 12:15 98.6 98.6 09/03/25 11:32 Mechanical Ventilator+ Total Intake and Output 09/02/25 09/02/25 09/03/25 15:00 23:00 07:00 Intake Total 300 ml 2456 ml Output Total 100 ml 300 ml Balance 200 ml 2156 ml medications Current Medications Medications Dose Ordered Sig/Adri Route Start Time Stop Time Status Last Admin Dose Admin Albuterol 2.5 mg Q4HPRN PRN NEB 08/20/25 23:15 09/03/25 06:47 2.5 MG Ipratropium [place] 0.5 mg Q4HPRN PRN NEB 08/20/25 23:15 09/03/25 06:48 0.5 MG Multivit/Ca Carb/ B Cmplx/FA/Prenat 1 tab DAILY PO 08/21/25 10:00 09/03/25 10:50 1 TAB Diagnostic Test (Pha) 1 strip ACHS 08/21/25 07:00 09/03/25 10:50 1 STRIP Insulin Human Regular ACHS SC 08/21/25 07:00 09/02/25 21:37 2 UNITS Dextrose 50 ml UD PRN IV 08/20/25 23:15 Sodium Chloride 10 ml Q8HR IV 08/21/25 06:00 09/03/25 14:11 10 ML Docusate Sodium 100 mg BIDPRN PRN PO 08/20/25 23:15 Acetaminophen 650 mg Q6HP PRN PO 08/20/25 23:15 Nitroglycerin 0.4 mg Q5MINP PRN SL 08/20/25 23:15 Hold Midazolam HCl 100 ml @ 1 mls/hr Q24H IV 08/21/25 01:45 09/02/25 01:07 2 MLS/HR Pantoprazole Sodium 40 mg DAILY IV 08/22/25 10:00 09/03/25 10:49 40 MG Hydralazine HCl 10 mg Q8HR PO 08/26/25 22:00 09/03/25 14:10 10 MG Sildenafil Citrate 20 mg TID@08,14,20 NG 08/30/25 20:00 09/03/25 14:10 20 MG Fentanyl Citrate 250 ml @ 2.5 mls/hr Q24H IV 08/31/25 21:15 09/03/25 01:06 5 MLS/HR Amlodipine Besylate 10 mg DAILY PO 09/01/25 10:45 09/03/25 10:50 10 MG Enteral Nutritional Formula 1,000 ml 30ML/HR GT 09/02/25 18:45 Amino Acid Protein 30 ml Q6HR GT 09/03/25 00:00 09/03/25 00:12 30 ML Examination General: Patient is intubated, sedated, mechanically ventilated, RASS -3, is reactive to painful stimulus HEENT: Normocephalic, atraumatic, pin point pupils sluggish, no EOM, pink conjunctiva, pink moist mucous membrane, ET tube in place, left internal jugular central line in place, orogastric tube in place Respiratory/pulmonary: Bilateral chest expansion, improved breath sounds bilaterally Cardiovascular: Normal RRR Abdomen: Obese, Abdomen nondistended, normal bowel sounds, soft, no grimacing is observed on palpation, no palpable masses. Extremities: No deformities, edema of bilateral hands, edema has improved, skin of bilateral lower extremities are extremely dry, pulses 2+ bilateral lower extremities, presence of Frank catheter in right groin region Skin: No rashes or pruritus, there is no sacral edema present at this time. Neurological: cough and gag reflex present laboratory and microbiology Laboratory Tests 09/03/25 03:04 Test 09/03/25 03:04 Range/Units Serum Glucose 124 H 74-106 mg/dL Microbiology Date/Time Source Procedure Growth Status 08/22/25 12:52 Urine - Meng Port Urine Culture - Final Complete 08/22/25 08:06 Nose MRSA Screen - Final Complete Problem List/Assessment/Plan Problem List/Assessment/Plan Neurology # Sedated - Versed Discontinued - Propofol: Discontinued - Fentanyl 50 Cardiovascular # Acute on chronic HFrEF # Pulmonary Edema - BNP 2515.41 --> 370 - Chest xray 08/20/2025: Moderate to severe pulmonary edema - Chest xray 08/21/2025: Cardiomegaly with pulmonary venous congestion and edema - Echocardiogram 01/14/2022: EF > 60%, Limited echo windows, mild TR, MR - New echocardiogram has been ordered, pending read - Cardiology: Pending echo, considered R/LHC if inconclusive , discontinue bumex drip - [place] 40 mg IV daily - Per nephrology: Start bumex drip + albumin and D5W 75 cc/hour -- Bumex drip discontinued by cardiology -- D5W has been discontinued due to resolution of hypernatremia - Chest Xray shows worsening, for which lasix 40 mg BID will be initiated - Lasix has been discontinued by Cardiology #Hypertension - Amlodipine 10 mg NG daily - Hydralazine #CAD - R/L heart catheterization 08/30/2025: Left main, LAD and circumflex are patent, RCA patent, E is 50-55% #Severe pulmonary hypertension - R/L heart catheterization 08/30/2025: RA pressure 18 mmHg, RV pressure 62/16 mmHg, pulmonary artery pressure 66/18 mmHg, capillary wedge pressure: 17 mmHg - Per cardiology: Sildenafil 20mg NG TID, originally 40 but this was lowered Respiratory # Ventilator - intubated (08/21/2025) - [facility] : VCAC Mode RR 24 TV 450ml, PEEP Of 5 and FiO2 of 40% - Patient was placed on on CPAP 11/02 today for exercise of respiratory muscles, she was pulling Vt of 450-550, she will remain on on full support overnight and CPAP as tolerated during the day for exercise. Currently no plan to extubate - Extubation will be considered once mentation has improved and she can tolerate CPAP at 8/. # Acute hypercapnic respiratory failure secondary to pulmonary edema # Acute COPD exacerbation - Methylprednisolone 40 mg IV, discontinued - Ipratropium medneb - Albuterol medneb - Ceftriaxone 1 g IV daily #Influenza A and B - Tamiflu 30 mg BID suspension, discontinued #Respiratory acidosis GI # Peptic ulcer prophylaxis -Pantoprazole 40 mg IV daily # Constipation - Lactulose 15 mL GT # Meng catheter # Possible Complicated UTI, present on admission - Ceftriaxone 1 g IV daily, discontinued Nephrology # COLE on CKD likely hemodynamically mediated/ VMN - NS 1000 cc bolus + 250 cc bolus in preparation for heart cath - NS 100cc/hr for 5 hours after procedure - Furosemide 100 mg IV after procedure, this was discontinued at the request of cardiology - Dialysis catheter placed by Dr. Bahena in right femoral region - Hemodialysis: 08/31 #Hyperkalemia, resolved - Per nephrology: trial of forced diuresis to enhance potassium excretion, serial chemistry panels, IV bicarbonate infusion, and avoidance of IV contrast if able, currently without urgent indication for kidney replacement therapy - Bicarbonate drip has been dc'd - Per Cardiology: Zoran . #Acute metabolic acidosis #Hypernatremia, resolved - D5W, discontinued Infectious disease # Influenza A and B Pneumonia - Tamiflu 30 mg BID suspension, discontinued Hem/onc #Thrombocytopenia, resolved - Monitor Endocrine #Type 2 diabetes mellitus - SSI -Accu cheks DVT prophylaxis: SCD PUD prophylaxis: Pantoprazole 40 mg IV daily Lines -L femoral Central line 08/20/2025 - discontinued on 08/29/2025 -L internal jugular central line 08/29/2025 -Meng catheter 08/20/2025 -ET tube: 08/21/2025 Nutrition: Nepro at a rate of 30 Drips [facility] Versed Discontinued Fentanyl 50 Propofol: Discontinued Nitroglycerin: Discontinued Nicardipine drip: Discontinued Bicarbonate drip: Discontinued Patient was on CPAP trial for 45 minutes this morning, consideration of extubation once mentation improves. Critical care time 47 minutes excluding procedure. Code status discussed greater than 20 minutes: Full CODE STATUS. Plan discussed with Plan discussed with: Other (RN) My Orders My Orders Orders - JILLIAN SMITH RESIDENT Procedure Category Date Status Time Cpap/Sed Vacation Med ORDERS 09/03/25 Transmitted Weaning 10:04 Cpap Trial For Am ORDERS 09/03/25 Transmitted 10:04 Dexmedetomidine Hcl PHA 09/03/25 In Process In D5w (Precedex) 10:15 Dietary Evaluation Review Comments: Nutrition Recommendation: 1) EN Nepro Carbsteady @ 30ml/hr x 24hr (goal) along with Pro-stat 1 pk BID. Water flush 50ml Q6H if allowed, adjust PRN. TF at goal volume along with propofol & Pro-stat provide 1777 kcal (100%), 89 gm protein (83%), and 723 ml free water(including flush). 2) TPN if NPO >7 days 3) Monitor NPO status, lab values, weight trend, and I/O Expected Outcomes/Goals: Intake to meet >75% estimated needs Lab values to improve FU 2-3 days JILLIAN SMITH RESIDENT Sep 03, 2025 14:31
--- NOTE | 2025-09-03 23:51 | DVHPN2 ---
Subjective DOS: 09/03/2025 Patient seen and examined at bedside. Sedated, intubated on mechanical ventilator. Overnight events reviewed. Changes from previous H/P or p: No Changes Eyes: No Pain, No Vision change, No Conjunctivae inflammation, No Eyelid inflammation, No Other, No Redness ENT: No Ear pain, No Ear discharge, No Nose pain, No Nose discharge, No Nose congestion, No Mouth pain, No Mouth swelling, No Throat pain, No Throat swelling, No Other Cardiovascular: Chest Pain; No Palpitations, No Orthopnea, No Paroxysmal Noc. Dyspnea, No Edema, No Lt Headedness, No Other Respiratory: No Cough, No Dry; Shortness of breath; No SOB with excertion, No Wheezing, No Hemoptysis, No Pleuritic Pain, No Sputum; Other (SOB at rest) Gastrointestinal: No Nausea, No Vomiting, No Abdominal Pain, No Diarrhea, No Constipation, No Melena, No Hematochezia, No Other Genitourinary: No Dysuria, No Frequency, No Incontinence, No Hematuria, No Retention; Other (Schuster catheter in place) Musculoskeletal: other (Bilateral leg discoloration); No neck pain, No shoulder pain, No arm pain, No back pain, No hand pain, No leg pain, No foot pain Skin: No Rash, No Lesions, No Jaundice, No Bruising; Other (Left foot wound) Objective Vitals Vital Signs Date Time Temp Pulse Resp B/P (MAP) Pulse Ox O2 Delivery O2 Flow Rate FiO2 09/03/25 21:56 77 24 149/62 (91) 98 40 09/03/25 20:01 97.4 97.4 09/03/25 20:00 Mechanical Ventilator+ Intake/Output Intake and Output 09/03/25 07:00 Intake Total 2756 ml Output Total 400 ml Balance 2356 ml Intake Oral 2456 ml Tube Feeding 300 ml Output Urine Total 400 ml Exam Gen.: Patient lying in bed in medical ICU. Sedated, intubated on mechanical ventilator. Head: Normocephalic, atraumatic. Eyes: PERRLA. Ears: Normal external anatomy. Throat: Endotracheal tube and orogastric tube in place. Neck: Supple, trachea midline. Chest: Transmitted breath sounds bilaterally. Decreased air entry bilaterally. No wheezing. Bibasilar crackles. Cardiovascular: Positive S1, positive S2. Regular rate and rhythm. Abdomen: Positive bowel sounds in all 4 quadrants. Soft, nontender, nondistended. : Schuster in place. Normal external genitalia. Rectal: Deferred. Skin: Warm, dry. Intact. Extremities: 2+ radial pulses bilaterally. No lower extremity edema. Neuro: Sedated. Medications Current Medications Medications Dose Ordered Sig/Adri Route Start Time Stop Time Status Last Admin Dose Admin Albuterol 2.5 mg Q4HPRN PRN NEB 08/20/25 23:15 09/03/25 14:29 2.5 MG Ipratropium [place] 0.5 mg Q4HPRN PRN NEB 08/20/25 23:15 09/03/25 06:48 0.5 MG Multivit/Ca Carb/ B Cmplx/FA/Prenat 1 tab DAILY PO 08/21/25 10:00 09/03/25 10:50 1 TAB Diagnostic Test (Pha) 1 strip ACHS 08/21/25 07:00 09/03/25 21:17 1 STRIP Insulin Human Regular ACHS SC 08/21/25 07:00 09/02/25 21:37 2 UNITS Dextrose 50 ml UD PRN IV 08/20/25 23:15 Sodium Chloride 10 ml Q8HR IV 08/21/25 06:00 09/03/25 21:17 10 ML Docusate Sodium 100 mg BIDPRN PRN PO 08/20/25 23:15 Acetaminophen 650 mg Q6HP PRN PO 08/20/25 23:15 Nitroglycerin 0.4 mg Q5MINP PRN SL 08/20/25 23:15 Hold Midazolam HCl 100 ml @ 1 mls/hr Q24H IV 08/21/25 01:45 09/02/25 01:07 2 MLS/HR Pantoprazole Sodium 40 mg DAILY IV 08/22/25 10:00 09/03/25 10:49 40 MG Hydralazine HCl 10 mg Q8HR PO 08/26/25 22:00 09/03/25 21:16 10 MG Sildenafil Citrate 20 mg TID@08,14,20 NG 08/30/25 20:00 09/03/25 20:10 20 MG Fentanyl Citrate 250 ml @ 2.5 mls/hr Q24H IV 08/31/25 21:15 09/03/25 01:06 5 MLS/HR Amlodipine Besylate 10 mg DAILY PO 09/01/25 10:45 09/03/25 10:50 10 MG Enteral Nutritional Formula 1,000 ml 30ML/HR GT 09/02/25 18:45 Amino Acid Protein 30 ml Q6HR GT 09/03/25 00:00 09/03/25 00:12 30 ML Laboratory Results Laboratory Tests 09/03/25 03:04 Chemistry Test 09/03/25 03:04 Calcium Level 8.9 mg/dL (8.7-10.4) Magnesium Level 2.2 mg/dL (1.6-2.6) Phosphorus Level 4.3 mg/dL (2.4-5.1) Urinalysis Test 08/22/25 11:43 08/22/25 12:52 Urine Color Light-yellow (Yellow) Urine Clarity Turbid (Clear) H Urine pH 6.5 (5.0-9.0) Urine Specific [place] 1.011 (1.001-1.035) Urine Protein 2+ (Negative) H Urine Ketones Negative (Negative) Urine Blood 2+ /uL (Negative) H Urine Nitrite Negative (Negative) Urine Bilirubin Negative (Negative) Urine Urobilinogen Normal mg/dL (Negative) Urine Leukocyte Esterase 2+ /uL (Negative) Urine RBC 151 /hpf (0 - 4) Urine WBC Clumps Present /hpf (None Seen) Urine Microscopic WBC 23 /HPF (0-5) H Urine Squamous Epithelial Cells Few /hpf (<5) Urine Bacteria Few /hpf (None Seen) H Urine Hyaline Casts Mod /lpf (0 - 2) Urine Mucus Few (None Seen) Urine Protein/Creatinine Ratio 4.08 Urine Glucose 1+ mg/dL (Normal) H Urine Total Protein 204.4 mg/dL (1-14) H Urine Creatinine 52.93 mg/dL (30.0-125.0) Urine Sodium 114 mmol/L (40-220) Blood Gas Results Test 09/03/25 07:20 Arterial Blood pH 7.361 (7.350-7.450) FiO2 % 45.0 Microbiology Microbiology Date/Time Source Procedure Growth Status 08/22/25 12:52 Urine - Schuster Port Urine Culture - Final Complete 08/22/25 08:06 Nose MRSA Screen - Final Complete Assessment/Plan Assessment/Plan Impression: Acute hypoxic respiratory failure Acute hypercapnic respiratory failure On mechanical ventilator Pulmonary edema Pulmonary hypertension Metabolic acidosis Acute renal failure Morbid obesity Events: Remains on vent support On AC mode; RR 24, VT 450, PEEP 5, FiO2 40% Taper FiO2 as tolerated Fentanyl for analgesia On Precedex drip for agitation. S/p hemodialysis yesterday - pulled 2.2 liters Nephrology recs appreciated Continue antibiotics. Slight leukocytosis - WBC trended up at 14.9 K Tube feeds for nutritional support ABG reviewed, compensated. CPAP with PS 16, PEEP 5 Patient tolerated CPAP for 45 minutes; then developed tachypnea and tachycardia and was placed back on full support. Will continue with exercise during daytime Full support overnight Will consider extubation once mentation improves and on CPAP with PS 8, PEEP 5. Labs and imaging reviewed. Rest of plan as noted below. Plan: s/p intubation on mechanical ventilator. On AC mode; RR 24, VT 450, PEEP 5, FiO2 45% Titrate FIO2 to keep O2 saturation above 90%. VAP bundle. Daily ABG and CXR while intubated Continue antibiotics. IV fluids at 100 ml/hr. Tube feeds for nutritional support Pressors as necessary for hemodynamic support Titrate to keep mean arterial pressure greater than 65 mmHg. Hemodialysis per Nephrology Monitor renal function Monitor electrolytes. Supplement as necessary. Monitor ins and outs. Recommend diet and lifestyle modifications for weight reduction Obesity complicates all care GI prophylaxis. DVT prophylaxis. Prognosis: Poor given patient's multiple co-morbidities. Condition: Critical Rest of plan per hospitalist and other consultants. A total of 35 minutes of critical care time was spent reviewing the patient record, examining the patient, making a diagnostic and therapeutic plan, discussing this plan with the medical personnel, following up on diagnostic studies and following the patient for clinical stability excluding any and all procedures. At least 50% of this time was spent in direct, [id number] contact. Thank you, Dr. Mike Zheng, for allowing me to participate in this patient's care. Further recommendations will depend on the patient's clinical course. Please do not hesitate to contact me if you have any questions or concerns. This medical document was created using an electronic medical record system with [email or web address] system. Although these documentations are being carefully reviewed, there may still be some phonetic and typographical changes. The errors are purely typographical, due to imperfection on the software program, and do not reflect any compromise in the patient's medical care. Plan discussed with: Other (MARU Hansen) Visit Coding Pulmonary Billing Provider: RAVI SABA MD Date of Service if different f: Sep 03, 2025 Common Visit Codes: [id number] INP/OBS CARE(HIGH), [id number] CARE 30-74 MIN RAVI SABA MD Sep 03, 2025 23:51
[2025-09-04] VITALS (108 sets, daily range): BP systolic 96–195; BP diastolic 42–110; PULSE 64–102; RESP 0–33; TEMP 97–99.4; O2SAT 87–100
[2025-09-04 03:40] LABS: Hemoglobin 10.4 g/dL (12.2-16.2)
[2025-09-04 03:42] LABS: Hematocrit 36.6 % (36.0-46.0); Mean Corpuscular Hemoglobin 18.8 pg (28.0-32.0); Mean Corpuscular Volume 66.0 fL (80.0-100.0); Nucleated Red Blood Cells % 0.1 %
[2025-09-04 03:57] LABS: Alkaline Phosphatase 85 U/L (46-116); Anion Gap 13 (5-15); BUN/Creatinine Ratio 11.0 (10.0-20.0); Carbon Dioxide 27 mmol/L (20-31); Chloride 104 mmol/L (98-107); Potassium 3.5 mmol/L (3.5-5.1); Sodium 144 mmol/L (136-145); Total Protein 5.7 g/dL (5.7-8.2)
[2025-09-04 05:03] LABS: Alanine Aminotransferase < 9 U/L (7-40); Albumin 2.9 g/dL (3.2-4.8); Bilirubin, Total 0.3 mg/dL (0.2-1.0); Blood Urea Nitrogen 54 mg/dL (9-23); Calcium 8.6 mg/dL (8.7-10.4); Glucose 110 mg/dL (74-106)
--- NOTE | 2025-09-04 05:50 | DVH ---
MEDICAL RECORDS NUMBER: [id number] PROCEDURE: XY CHEST XRAY 1 VIEW DATE: 09/04/2025 05:09 AM HISTORY: Intubated Views:1 COMPARISON: XY CHEST XRAY 1 VIEW on DOS: 09/03/25, XY CHEST XRAY 1 VIEW on DOS: 09/02/25, XY CHEST XRAY 1 VIEW on DOS: 09/01/25, XY CHEST XRAY 1 VIEW on DOS: 08/31/25, XY CHEST PORTABLE on DOS: 08/30/25 FINDINGS/IMPRESSION: Lungs: Bibasilar infiltrates and atelectasis is evident. Mediastinum: Mediastinal structures appear unremarkable.A endotracheal tube is seen with the tip projecting approximately 2 cm above the delfino.A left-sided central line is seen. The tip projects over the superior vena cava. No pneumothorax is seen. NG tube courses through the films. Skeletal: The skeletal structures appear unremarkable.
[2025-09-04 08:14] LABS: Base Excess -0.8 mmol/L (-2.0-3.0)
--- NOTE | 2025-09-04 10:25 | DVHPN2 ---
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 HYPERKALEMIA COPD HYPERLIPIDEMIA SIGN SX COMPLEX OF NOW WITH SOB CHEST PAIN RENAL FAILURE HYPERKALEMIA RESP FAILURE REQUIRING INTUBATION vital signs Vital Sign Date Time Temp Pulse Resp B/P (MAP) Pulse Ox O2 Delivery O2 Flow Rate FiO2 09/04/25 09:04 137/56 09/04/25 08:30 65 24 96 40 09/04/25 08:01 98.5 98.5 09/04/25 07:30 Mechanical Ventilator+ Total Intake and Output 09/03/25 09/03/25 09/04/25 15:00 23:00 07:00 Intake Total 24.060 ml 48.120 ml 632.120 ml Output Total 100 ml 150 ml Balance 24.060 ml -51.880 ml 482.120 ml medications Current Medications Medications Dose Ordered Sig/Adri Route Start Time Stop Time Status Last Admin Dose Admin Albuterol 2.5 mg Q4HPRN PRN NEB 08/20/25 23:15 09/03/25 14:29 2.5 MG Ipratropium [place] 0.5 mg Q4HPRN PRN NEB 08/20/25 23:15 09/03/25 06:48 0.5 MG Multivit/Ca Carb/ B Cmplx/FA/Prenat 1 tab DAILY PO 08/21/25 10:00 09/04/25 09:04 1 TAB Diagnostic Test (Pha) 1 strip ACHS 08/21/25 07:00 09/04/25 06:08 1 STRIP Insulin Human Regular ACHS SC 08/21/25 07:00 09/02/25 21:37 2 UNITS Dextrose 50 ml UD PRN IV 08/20/25 23:15 Sodium Chloride 10 ml Q8HR IV 08/21/25 06:00 09/04/25 05:27 10 ML Docusate Sodium 100 mg BIDPRN PRN PO 08/20/25 23:15 Acetaminophen 650 mg Q6HP PRN PO 08/20/25 23:15 Nitroglycerin 0.4 mg Q5MINP PRN SL 08/20/25 23:15 Hold Midazolam HCl 100 ml @ 1 mls/hr Q24H IV 08/21/25 01:45 09/02/25 01:07 2 MLS/HR Pantoprazole Sodium 40 mg DAILY IV 08/22/25 10:00 09/04/25 09:04 40 MG Hydralazine HCl 10 mg Q8HR PO 08/26/25 22:00 09/04/25 05:27 10 MG Sildenafil Citrate 20 mg TID@08,14,20 NG 08/30/25 20:00 09/04/25 09:04 20 MG Fentanyl Citrate 250 ml @ 2.5 mls/hr Q24H IV 08/31/25 21:15 09/03/25 01:06 5 MLS/HR Amlodipine Besylate 10 mg DAILY PO 09/01/25 10:45 09/04/25 09:04 10 MG Enteral Nutritional Formula 1,000 ml 30ML/HR GT 09/02/25 18:45 Amino Acid Protein 30 ml Q6HR GT 09/03/25 00:00 09/04/25 00:37 30 ML laboratory and microbiology Laboratory Tests 09/04/25 02:49 Test 09/04/25 02:49 Range/Units Serum Glucose 110 H 74-106 mg/dL Problem List ORGANIC HEART DISEASE CAD HFrEF HTN 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 HYPERKALEMIA COPD HYPERLIPIDEMIA SIGN SX COMPLEX OF NOW WITH SOB CHEST PAIN RENAL FAILURE HYPERKALEMIA RESP FAILURE REQUIRING INTUBATION Assessment/Plan CORRECT HYPERKALEMIA CONSIDER ECHO IF INCONCLUSIVE CONSIDER L/RHC BNP 370 ABX DC BUMEX START IVF AT 100 CC/HR ADD LOKELMA K+ CORRECTED REPEAT BNP WILL PROCEED WITH L/RHC ON FRIDAY POSITIVE FOR INFLUENZA A AND B POSITIVE START WEANING PT CON IV FLUID L/RHC NL CORONARIES EF >50% LVEDP 17mmHg RHC RA 15-27mmHg RV 62/17 PA`66/ 18 PCWP 17 SEVERE PUL HYPERTENSION START REVATIO 20 MG TID HEMODIALYSIS IN AM CHEST CXR STILL WITH INFILTRATIVE PROCESS START WEAN SEDATION WITH HD SIGNIFICANT IMPROVEMENT IN LUNG EFFISION AND INFILTRATE STOP SEDATION WEAN PT OFF VENT OTHERWISE CONSIDER TRACH Dietary Evaluation Review Comments: Nutrition Recommendation: 1) EN Nepro Carbsteady @ 30ml/hr x 24hr (goal) along with Pro-stat 1 pk BID. Water flush 50ml Q6H if allowed, adjust PRN. TF at goal volume along with propofol & Pro-stat provide 1777 kcal (100%), 89 gm protein (83%), and 723 ml free water(including flush). 2) TPN if NPO >7 days 3) Monitor NPO status, lab values, weight trend, and I/O Expected Outcomes/Goals: Intake to meet >75% estimated needs Lab values to improve FU 2-3 days Plan discussed with: Patient, Daughter Critical Care Time(min): 35 RAMIN GARCIA MD Sep 04, 2025 10:25
--- NOTE | 2025-09-04 12:31 | DVHPN2 ---
Progress Note Date Seen: Sep 04, 2025 Has the PT tested + for MRSA If YES, has PT been informed?: No Medical Necessity Reason Pt with a Central, PICC or Fol: Yes The following are medically ne: Central Line, Meng Catheter Reason for meng catheter: Strict I&O Subjective Review of Systems: RESPIRATORY:Abnormal Other Systems: PATIENT SEEN AND EXAMINED BY MYSELF TODAY IN FOLLOW-UP, patient remained intubated on ventilator Objective vital signs Vital Sign Date Time Temp Pulse Resp B/P (MAP) Pulse Ox O2 Delivery O2 Flow Rate FiO2 09/04/25 11:46 91 33 159/69 (99) 09/04/25 11:16 95 09/04/25 10:37 40 09/04/25 09:30 Mechanical Ventilator+ 09/04/25 08:01 98.5 98.5 Total Intake and Output 09/03/25 09/03/25 09/04/25 15:00 23:00 07:00 Intake Total 24.060 ml 48.120 ml 632.120 ml Output Total 100 ml 150 ml Balance 24.060 ml -51.880 ml 482.120 ml medications Current Medications Medications Dose Ordered Sig/Adri Route Start Time Stop Time Status Last Admin Dose Admin Albuterol 2.5 mg Q4HPRN PRN NEB 08/20/25 23:15 09/03/25 14:29 2.5 MG Ipratropium [place] 0.5 mg Q4HPRN PRN NEB 08/20/25 23:15 09/03/25 06:48 0.5 MG Multivit/Ca Carb/ B Cmplx/FA/Prenat 1 tab DAILY PO 08/21/25 10:00 09/04/25 09:04 1 TAB Diagnostic Test (Pha) 1 strip ACHS 08/21/25 07:00 09/04/25 11:44 1 STRIP Insulin Human Regular ACHS SC 08/21/25 07:00 09/02/25 21:37 2 UNITS Dextrose 50 ml UD PRN IV 08/20/25 23:15 Sodium Chloride 10 ml Q8HR IV 08/21/25 06:00 09/04/25 05:27 10 ML Docusate Sodium 100 mg BIDPRN PRN PO 08/20/25 23:15 Acetaminophen 650 mg Q6HP PRN PO 08/20/25 23:15 Nitroglycerin 0.4 mg Q5MINP PRN SL 08/20/25 23:15 Hold Midazolam HCl 100 ml @ 1 mls/hr Q24H IV 08/21/25 01:45 09/02/25 01:07 2 MLS/HR Pantoprazole Sodium 40 mg DAILY IV 08/22/25 10:00 09/04/25 09:04 40 MG Hydralazine HCl 10 mg Q8HR PO 08/26/25 22:00 09/04/25 05:27 10 MG Sildenafil Citrate 20 mg TID@08,14,20 NG 08/30/25 20:00 09/04/25 09:04 20 MG Fentanyl Citrate 250 ml @ 2.5 mls/hr Q24H IV 08/31/25 21:15 09/03/25 01:06 5 MLS/HR Amlodipine Besylate 10 mg DAILY PO 09/01/25 10:45 09/04/25 09:04 10 MG Enteral Nutritional Formula 1,000 ml 30ML/HR GT 09/02/25 18:45 Amino Acid Protein 30 ml Q6HR GT 09/03/25 00:00 09/04/25 00:37 30 ML Examination: LUNGS:Normal, CVS:Normal, MSK:Normal laboratory and microbiology Laboratory Tests 09/04/25 02:49 Test 09/04/25 02:49 Range/Units Serum Glucose 110 H 74-106 mg/dL Microbiology Date/Time Source Procedure Growth Status 08/22/25 12:52 Urine - [place] Urine Culture - Final Complete 08/22/25 08:06 Nose MRSA Screen - Final Complete Problem List/Assessment/Plan Problem List/Assessment/Plan ESRD requiring intermittent HD Acute hypoxic respiratory failure, patient intubated on ventilator Community-acquired pneumonia Diabetes mellitus type 2 Nephrotic syndrome secondary to underlying diabetic nephropathy Hyperkalemia Hypernatremia due to insensible water loss Recommendations Hemodialysis tomorrow Epogen 4000 subQ 3 times weekly Hyperkalemia resolved Hypernatremia appropriately resolved Strict I&Os kidney ultrasound reported within normal limit IV antibiotics Avoid nephrotoxic medications We will continue to follow Plan discussed with: Other (Nurse) Dietary Evaluation Review Comments: Nutrition Recommendation: 1) EN Nepro Carbsteady @ 30ml/hr x 24hr (goal) along with Pro-stat 1 pk BID. Water flush 50ml Q6H if allowed, adjust PRN. TF at goal volume along with propofol & Pro-stat provide 1777 kcal (100%), 89 gm protein (83%), and 723 ml free water(including flush). 2) TPN if NPO >7 days 3) Monitor NPO status, lab values, weight trend, and I/O Expected Outcomes/Goals: Intake to meet >75% estimated needs Lab values to improve FU 2-3 days JEANNE WHITE MD Sep 04, 2025 12:31
--- NOTE | 2025-09-04 13:55 | DVHPNRES ---
Progress Note Date Seen: Sep 04, 2025 Resident Creating Document: SALLY MINOR RESIDENT Has the PT tested + for MRSA If YES, has PT been informed?: No Medical Necessity Reason Pt with a Central, PICC or Fol: Yes The following are medically ne: Central Line, Meng Catheter Reason for meng catheter: Strict I&O Subjective Review of Systems Ms. Marin is a 75-year-old female with prior medical history of CHF, COPD with home oxygen, gout, anxiety, diabetes mellitus, hyperlipidemia, hypertension, and PAD, who to [facility] with chief complaint of shortness of breath and back and midsternal non-radiating chest pain. At time of this evaluation the patient is intubated and sedated, history was taken from her daughter Susy at bedside and from medical record. Per her daughter, patient has been complaining of progressively worsening shortness of breath for the last 2 weeks associated with general malaise and orthopnea, describing very wet coughing sounds when her mother lays flat. She states that her mother began complaining of worsening shortness of breath associated with non-radiating midsternal chest pain which prompted her to call EMS. Per record, on seen she was saturating 74%, she was placed on CPAP with inspiration increasing to 88% on route to the emergency department. On evaluation in the ED, is afebrile, slightly hypertensive, and tachypneic saturating 81% which she was placed on BiPAP. Initial labs significant for leukocytosis of 11.3, with elevated hematocrit, and thrombocytopenia, Hyperkalemia, creatinine 4.09, BUN 46, and ABG significant for respiratory acidosis, troponins are negative, BNP 2515.41.Patient is influenza A and B positive. Chest x-ray shows moderate to severe pulmonary edema. Patient further deteriorated requiring intubation for respiratory distress. She was started on IV Lasix, IV methylprednisolone, hyperkalemia protocol, bicarbonate drip, and nitroglycerin drip. On my initial evaluation in the ED, the patient is sedated, intubated, and mechanically ventilated, currently not on pressors. Prior Medical history: CHF, COPD, gout, anxiety, type 2 diabetes mellitus, hyperlipidemia, hypertension, PAD, pulmonary hypertension Previous surgical history: Left leg stenting for PAD Allergies: Denies Social history: Daughter refers the patient smokes cigarettes with cessation approximately 20 years ago Home medications: Allopurinol, insulin, gabapentin, simvastatin, tadalafil 08/26/2025: Patient was seen in ICU. She is sedated, intubated, mechanically ventilated, not on pressors. CBC shows thrombocytopenia, persists with hyperkalemia, kidney function continues to worsen. UA is significant for UTI. She is being followed by nephrology who is currently recommending recommended a kidney ultrasound and hyperkalemia protocol to reduce serum potassium. She was evaluated by her briquette machine operator, Dr. Bahena, who recommends echocardiogram, if inconclusive possible R/LHC. Tube feeds will be initiated. We will continue to monitor 08/27/25: Patient is seen and examined at bedside, , intubated, mechanically ventilated, not on pressors. She was evaluated by her briquette machine operator, Dr. Bahena, who recommends echocardiogram, if inconclusive possible R/LHC. Tube feeds will be initiated. We will continue to monitor. 08/28/25 Sedation reduced today for neurologic assessment; patient remains sedated but arousable to stimulation. * IV fluid optimization initiated: Started 0.9% NS at 75 mL/hr, given concern for worsening COLE (Cr 4.26 today - 4.03 yesterday). * Strictly discontinued diuretics (Bumex/Lasix) due to elevated creatinine. * No peripheral edema today. * Left heart cath + right heart cath planned for tomorrow ONLY after renal function improves; currently high risk for contrast-induced nephropathy due to low GFR. * Pre-cath renal protection plan reviewed: * 250 mL NS bolus 1 hr prior * NS at 100 mL/hr for 5 hours after * WBC 13.6 (leukocytosis), Hgb 12.3, Plt 122 (mild thrombocytopenia). * ABG: pH 7.37, PCO2 40.2, PO2 58.3 (low), HCO2 23, O2 sat 87% (low). * Current ventilator settings: FiO2 40%, PEEP 5, TV 450 mL. 08/29/2025: Patient seen in the ICU. She is intubated, sedated, and mechanically ventilated. She is scheduled for L/R heart cath tomorrow, for which she is being given fluids in preparation for. She is afebrile, normocardic, and with stable BP occasionally high. WBCs are elevated and renal function is worsening. Chest Xray has shows minor improvement. Lasix has been discontinued by cardiology. 08/30/2025: Patient seen in the ICU. She is intubated, sedated, and mechanically ventilated. She will go for L/R heart cath today. Fluids were given, another 250 cc has been ordered to be given 1 hour before the procedure. She is afebrile, normocardic, occasionally breathing over the vent, mostly hypertensive. WBCs are down trending, renal function is worsening. Both nephrology and cardiology are on board. Per nurse, patient has not had a bowel movement in 4 days, for which lactulose will be given. Per nephrology, patient is to be placed on NS at 100 cc/hr for 5 hours after procedure with 100 mg of Furosemide IV. Per Dr. Bahena, the patient is not to receive furosemide. We will continue to monitor. 08/31/2025: Patient seen in the ICU. She is intubated, sedated, and mechanically ventilated. She is afebrile, normocardic, with soft blood pressure. Labs are significant with worsening kidney function. She underwent L/R heart cath yesterday. Findings significant with severe pulmonary hypertension pulmonary artery pressure 66/18 mmHg and capillary wedge of 17 mmHg, she was started on sildenafil by Dr. Bahena. She will undergo hemodialysis today. We will continue to monitor. 09/01/2025: Patient seen in the ICU. She is intubated, sedated, and mechanically ventilated. She is afebrile, normocardic, with stable blood pressure. Labs show improved kidney function after hemodialysis yesterday, 2L were pulled yesterday. She will undergo dialysis again tomorrow. We will begin to wean the off the ventilator. 09/02/2025: Patient seen in the ICU. She is intubated, sedated, and mechanically ventilated. She is afebrile, normocardic, with stable BP. Labs show minor elevation in WBCs which may be secondary to hemoconcentration. Patient had dialysis today, 2.2 L were drawn. Versed has been discontinued and Fentanyl has been decreased. Patient was placed on on CPAP 16/5 today for exercise of respiratory muscles, she was pulling Vt of 450-550, she will remain on on full support overnight and CPAP as tolerated during the day with consideration of extubation once mentation improves and CPAP at 8/5 is achieved. 12/007/2025: Patient seen in the ICU. She is intubated, on mechanical ventilation, no longer sedated. Not on pressors. Per nurse, the patient is becoming more responsive. She is afebrile, normal cardiac, with stable blood pressure. Labs were stable. Patient was placed on CPAP today for exercise of respiratory muscles, she tolerated 3 hours, to try again in the morning. Objective vital signs Vital Sign Date Time Temp Pulse Resp B/P (MAP) Pulse Ox O2 Delivery O2 Flow Rate FiO2 09/04/25 12:00 93 24 160/66 (97) 98 40 09/04/25 09:30 Mechanical Ventilator+ 09/04/25 08:01 98.5 98.5 Total Intake and Output 09/03/25 09/03/25 09/04/25 15:00 23:00 07:00 Intake Total 24.060 ml 48.120 ml 632.120 ml Output Total 100 ml 150 ml Balance 24.060 ml -51.880 ml 482.120 ml medications Current Medications Medications Dose Ordered Sig/Adri Route Start Time Stop Time Status Last Admin Dose Admin Albuterol 2.5 mg Q4HPRN PRN NEB 08/20/25 23:15 09/03/25 14:29 2.5 MG Ipratropium [place] 0.5 mg Q4HPRN PRN NEB 08/20/25 23:15 09/03/25 06:48 0.5 MG Multivit/Ca Carb/ B Cmplx/FA/Prenat 1 tab DAILY PO 08/21/25 10:00 09/04/25 09:04 1 TAB Diagnostic Test (Pha) 1 strip ACHS 08/21/25 07:00 09/04/25 11:44 1 STRIP Insulin Human Regular ACHS SC 08/21/25 07:00 09/02/25 21:37 2 UNITS Dextrose 50 ml UD PRN IV 08/20/25 23:15 Sodium Chloride 10 ml Q8HR IV 08/21/25 06:00 09/04/25 05:27 10 ML Docusate Sodium 100 mg BIDPRN PRN PO 08/20/25 23:15 Acetaminophen 650 mg Q6HP PRN PO 08/20/25 23:15 Nitroglycerin 0.4 mg Q5MINP PRN SL 08/20/25 23:15 Hold Midazolam HCl 100 ml @ 1 mls/hr Q24H IV 08/21/25 01:45 09/02/25 01:07 2 MLS/HR Pantoprazole Sodium 40 mg DAILY IV 08/22/25 10:00 09/04/25 09:04 40 MG Hydralazine HCl 10 mg Q8HR PO 08/26/25 22:00 09/04/25 05:27 10 MG Sildenafil Citrate 20 mg TID@08,14,20 NG 08/30/25 20:00 09/04/25 09:04 20 MG Fentanyl Citrate 250 ml @ 2.5 mls/hr Q24H IV 08/31/25 21:15 09/03/25 01:06 5 MLS/HR Amlodipine Besylate 10 mg DAILY PO 09/01/25 10:45 09/04/25 09:04 10 MG Enteral Nutritional Formula 1,000 ml 30ML/HR GT 09/02/25 18:45 Amino Acid Protein 30 ml Q6HR GT 09/03/25 00:00 09/04/25 00:37 30 ML Examination General: Patient is intubated, mechanically ventilated, opens her eyes when asked to, follows commands. HEENT: Normocephalic, atraumatic, pin point pupils sluggish, no EOM, pink conjunctiva, pink moist mucous membrane, ET tube in place, left internal jugular central line in place, orogastric tube in place Respiratory/pulmonary: Bilateral chest expansion, improved breath sounds bilaterally Cardiovascular: Normal RRR Abdomen: Obese, Abdomen nondistended, normal bowel sounds, soft, no grimacing is observed on palpation, no palpable masses. Extremities: No deformities, edema has improved, skin of bilateral lower extremities are extremely dry, pulses 2+ bilateral lower extremities, presence of Frank catheter in right groin region Skin: No rashes or pruritus, there is no sacral edema present at this time. Neurological: cough and gag reflex present laboratory and microbiology Laboratory Tests 09/04/25 02:49 Test 09/04/25 02:49 Range/Units Serum Glucose 110 H 74-106 mg/dL Microbiology Date/Time Source Procedure Growth Status 08/22/25 12:52 Urine - Meng Port Urine Culture - Final Complete 08/22/25 08:06 Nose MRSA Screen - Final Complete Problem List/Assessment/Plan Problem List/Assessment/Plan Neurology # Sedated - Versed Discontinued - Propofol: Discontinued - Fentanyl discontinued Cardiovascular # Acute on chronic HFrEF # Pulmonary Edema - BNP 2515.41 --> 370 - Chest xray 08/20/2025: Moderate to severe pulmonary edema - Chest xray 08/21/2025: Cardiomegaly with pulmonary venous congestion and edema - Echocardiogram 01/14/2022: EF > 60%, Limited echo windows, mild TR, MR - New echocardiogram has been ordered, pending read - Cardiology: Pending echo, considered R/LHC if inconclusive , discontinue bumex drip - Laxis 40 mg IV daily - Per nephrology: Start bumex drip + albumin and D5W 75 cc/hour -- Bumex drip discontinued by cardiology -- D5W has been discontinued due to resolution of hypernatremia - Chest Xray shows worsening, for which lasix 40 mg BID will be initiated - Lasix has been discontinued by Cardiology #Hypertension - Amlodipine 10 mg NG daily - Hydralazine #CAD - R/L heart catheterization 08/30/2025: Left main, LAD and circumflex are patent, RCA patent, E is 50-55% #Severe pulmonary hypertension - R/L heart catheterization 08/30/2025: RA pressure 18 mmHg, RV pressure 62/16 mmHg, pulmonary artery pressure 66/18 mmHg, capillary wedge pressure: 17 mmHg - Per cardiology: Sildenafil 20mg NG TID, originally 40 but this was lowered Respiratory # Ventilator - intubated (08/21/2025) - On [facility] vent : VCAC Mode RR 24 TV 450ml, PEEP Of 5 and FiO2 of 40% - Patient was placed on on CPAP 11/02 today for exercise of respiratory muscles, she was pulling Vt of 450-550, she will remain on on full support overnight and CPAP as tolerated during the day for exercise. Currently no plan to extubate - Extubation will be considered once mentation has improved and she can tolerate CPAP at 05/03. # Acute hypercapnic respiratory failure secondary to pulmonary edema # Acute COPD exacerbation - Methylprednisolone 40 mg IV, discontinued - Ipratropium medneb - Albuterol medneb - Ceftriaxone 1 g IV daily #Influenza A and B - Tamiflu 30 mg BID suspension, discontinued #Respiratory acidosis GI # Peptic ulcer prophylaxis -Pantoprazole 40 mg IV daily # Constipation - Lactulose 15 mL GT # Meng catheter # Possible Complicated UTI, present on admission - Ceftriaxone 1 g IV daily, discontinued Nephrology # COLE on CKD likely hemodynamically mediated/ VMN - NS 1000 cc bolus + 250 cc bolus in preparation for heart cath - NS 100cc/hr for 5 hours after procedure - Furosemide 100 mg IV after procedure, this was discontinued at the request of cardiology - Dialysis catheter placed by Dr. Bahena in right femoral region - Hemodialysis: 08/31 #Hyperkalemia, resolved - Per nephrology: trial of forced diuresis to enhance potassium excretion, serial chemistry panels, IV bicarbonate infusion, and avoidance of IV contrast if able, currently without urgent indication for kidney replacement therapy - Bicarbonate drip has been dc'd - Per Cardiology: [place] . #Acute metabolic acidosis #Hypernatremia, resolved - D5W, discontinued Infectious disease # Influenza A and B Pneumonia - Tamiflu 30 mg BID suspension, discontinued Hem/onc #Thrombocytopenia, resolved - Monitor Endocrine #Type 2 diabetes mellitus - SSI -Accu cheks DVT prophylaxis: SCD PUD prophylaxis: Pantoprazole 40 mg IV daily Lines -L femoral Central line 08/20/2025 - discontinued on 08/29/2025 -L internal jugular central line 08/29/2025 -Meng catheter 08/20/2025 -ET tube: 08/21/2025 Nutrition: Nepro at a rate of 30 [facility] Versed Discontinued Fentanyl discontinued Propofol: Discontinued Nitroglycerin: Discontinued Nicardipine drip: Discontinued Bicarbonate drip: Discontinued Sedation has been discontinued. The patient is undergoing CPAP for respiratory exercise in preparation for extubation once mentation permits. Critical care time 45 minutes excluding procedure. Code status discussed greater than 20 minutes: Full CODE STATUS. Daughter, Susy, was contacted via telephone and updated on her mother's condition. Plan discussed with Plan discussed with: Daughter, Other (Nurse (Ct)) Dietary Evaluation Review Comments: Nutrition Recommendation: 1) EN Nepro Carbsteady @ 30ml/hr x 24hr (goal) along with Pro-stat 1 pk BID. Water flush 50ml Q6H if allowed, adjust PRN. TF at goal volume along with propofol & Pro-stat provide 1777 kcal (100%), 89 gm protein (83%), and 723 ml free water(including flush). 2) TPN if NPO >7 days 3) Monitor NPO status, lab values, weight trend, and I/O Expected Outcomes/Goals: Intake to meet >75% estimated needs Lab values to improve FU 2-3 days Visit Coding STANDARD RES Billing Provider: RAVI SABA MD Date of Service if different f: Sep 04, 2025 SALLY MINOR RESIDENT Sep 04, 2025 13:55
[2025-09-04] MEDS: hydrALAZINE HCL 20 MG/ML VL IV ONE (18:37)
[2025-09-04] MEDS: LABETALOL HCL 20 MG/4 ML VL IV ONE (20:11)
--- NOTE | 2025-09-04 21:22 | DVH ---
EXAM: XY CHEST PORTABLE HISTORY: INTUBATION/ADVANCEMENT OF OGTUBE TECHNIQUE: 1 view of the chest COMPARISON: XY CHEST XRAY 1 VIEW on DOS: 09/04/25 FINDINGS/IMPRESSION: LUNGS: Bibasilar hazy alveolar opacities with peripheral interstitial edema and suprahilar cephalization MEDIASTINUM: Mild cardiomegaly BONES: No acute osseous abnormality. OTHER: Enteric tube in the stomach. Left internal jugular central venous catheter of the cavoatrial junction
--- NOTE | 2025-09-04 23:36 | DVHPN2 ---
Subjective DOS: 09/04/2025 Patient seen and examined at bedside. Sedated, intubated on mechanical ventilator. Overnight events reviewed. Changes from previous H/P or p: No Changes Eyes: No Pain, No Vision change, No Conjunctivae inflammation, No Eyelid inflammation, No Other, No Redness ENT: No Ear pain, No Ear discharge, No Nose pain, No Nose discharge, No Nose congestion, No Mouth pain, No Mouth swelling, No Throat pain, No Throat swelling, No Other Cardiovascular: Chest Pain; No Palpitations, No Orthopnea, No Paroxysmal Noc. Dyspnea, No Edema, No Lt Headedness, No Other Respiratory: No Cough, No Dry; Shortness of breath; No SOB with excertion, No Wheezing, No Hemoptysis, No Pleuritic Pain, No Sputum; Other (SOB at rest) Gastrointestinal: No Nausea, No Vomiting, No Abdominal Pain, No Diarrhea, No Constipation, No Melena, No Hematochezia, No Other Genitourinary: No Dysuria, No Frequency, No Incontinence, No Hematuria, No Retention; Other (Schuster catheter in place) Musculoskeletal: other (Bilateral leg discoloration); No neck pain, No shoulder pain, No arm pain, No back pain, No hand pain, No leg pain, No foot pain Skin: No Rash, No Lesions, No Jaundice, No Bruising; Other (Left foot wound) Objective Vitals Vital Signs Date Time Temp Pulse Resp B/P (MAP) Pulse Ox O2 Delivery O2 Flow Rate FiO2 09/04/25 22:29 168/89 09/04/25 20:32 90 24 95 30 09/04/25 20:00 Mechanical Ventilator+ 09/04/25 16:00 99.0 99.0 Intake/Output Intake and Output 09/04/25 07:00 Intake Total 704.300 ml Output Total 250 ml Balance 454.300 ml Intake Oral 300 ml IV Total 120.300 ml Tube Feeding 284 ml Output Urine Total 250 ml Exam Gen.: Patient lying in bed in medical ICU. Sedated, intubated on mechanical ventilator. Head: Normocephalic, atraumatic. Eyes: PERRLA. Ears: Normal external anatomy. Throat: Endotracheal tube and orogastric tube in place. Neck: Supple, trachea midline. Chest: Transmitted breath sounds bilaterally. Decreased air entry bilaterally. No wheezing. Bibasilar crackles. Cardiovascular: Positive S1, positive S2. Regular rate and rhythm. Abdomen: Positive bowel sounds in all 4 quadrants. Soft, nontender, nondistended. : Schuster in place. Normal external genitalia. Rectal: Deferred. Skin: Warm, dry. Intact. Extremities: 2+ radial pulses bilaterally. No lower extremity edema. Neuro: Sedated. Medications Current Medications Medications Dose Ordered Sig/Adri Route Start Time Stop Time Status Last Admin Dose Admin Albuterol 2.5 mg Q4HPRN PRN NEB 08/20/25 23:15 09/03/25 14:29 2.5 MG Ipratropium [place] 0.5 mg Q4HPRN PRN NEB 08/20/25 23:15 09/03/25 06:48 0.5 MG Multivit/Ca Carb/ B Cmplx/FA/Prenat 1 tab DAILY PO 08/21/25 10:00 09/04/25 09:04 1 TAB Diagnostic Test (Pha) 1 strip ACHS 08/21/25 07:00 09/04/25 22:00 1 STRIP Insulin Human Regular ACHS SC 08/21/25 07:00 09/02/25 21:37 2 UNITS Dextrose 50 ml UD PRN IV 08/20/25 23:15 Sodium Chloride 10 ml Q8HR IV 08/21/25 06:00 09/04/25 22:28 10 ML Docusate Sodium 100 mg BIDPRN PRN PO 08/20/25 23:15 Acetaminophen 650 mg Q6HP PRN PO 08/20/25 23:15 Nitroglycerin 0.4 mg Q5MINP PRN SL 08/20/25 23:15 Hold Midazolam HCl 100 ml @ 1 mls/hr Q24H IV 08/21/25 01:45 09/02/25 01:07 2 MLS/HR Pantoprazole Sodium 40 mg DAILY IV 08/22/25 10:00 09/04/25 09:04 40 MG Hydralazine HCl 10 mg Q8HR PO 08/26/25 22:00 09/04/25 22:29 10 MG Sildenafil Citrate 20 mg TID@08,14,20 NG 08/30/25 20:00 09/04/25 19:50 20 MG Fentanyl Citrate 250 ml @ 2.5 mls/hr Q24H IV 08/31/25 21:15 09/03/25 01:06 5 MLS/HR Amlodipine Besylate 10 mg DAILY PO 09/01/25 10:45 09/04/25 09:04 10 MG Enteral Nutritional Formula 1,000 ml 30ML/HR GT 09/02/25 18:45 Amino Acid Protein 30 ml Q6HR GT 09/03/25 00:00 09/04/25 22:32 30 ML Laboratory Results Laboratory Tests 09/04/25 02:49 Chemistry Test 09/04/25 02:49 Albumin 2.9 g/dL (3.2-4.8) L Calcium Level 8.6 mg/dL (8.7-10.4) L Total Protein 5.7 g/dL (5.7-8.2) LFT Test 09/04/25 02:49 Alanine Aminotransferase (ALT) < 9 U/L (7-40) Alkaline Phosphatase 85 U/L (46-116) Aspartate Amino Transferase (AST) 13 U/L (13-40) Total Bilirubin 0.3 mg/dL (0.2-1.0) Urinalysis Test 08/22/25 11:43 08/22/25 12:52 Urine Color Light-yellow (Yellow) Urine Clarity Turbid (Clear) H Urine pH 6.5 (5.0-9.0) Urine Specific [place] 1.011 (1.001-1.035) Urine Protein 2+ (Negative) H Urine Ketones Negative (Negative) Urine Blood 2+ /uL (Negative) H Urine Nitrite Negative (Negative) Urine Bilirubin Negative (Negative) Urine Urobilinogen Normal mg/dL (Negative) Urine Leukocyte Esterase 2+ /uL (Negative) Urine RBC 151 /hpf (0 - 4) Urine WBC Clumps Present /hpf (None Seen) Urine Microscopic WBC 23 /HPF (0-5) H Urine Squamous Epithelial Cells Few /hpf (<5) Urine Bacteria Few /hpf (None Seen) H Urine Hyaline Casts Mod /lpf (0 - 2) Urine Mucus Few (None Seen) Urine Protein/Creatinine Ratio 4.08 Urine Glucose 1+ mg/dL (Normal) H Urine Total Protein 204.4 mg/dL (1-14) H Urine Creatinine 52.93 mg/dL (30.0-125.0) Urine Sodium 114 mmol/L (40-220) Blood Gas Results Test 09/04/25 07:50 Arterial Blood pH 7.433 (7.350-7.450) FiO2 % 40.0 Microbiology Microbiology Date/Time Source Procedure Growth Status 08/22/25 12:52 Urine - Schuster Port Urine Culture - Final Complete 08/22/25 08:06 Nose MRSA Screen - Final Complete Assessment/Plan Assessment/Plan Impression: Acute hypoxic respiratory failure Acute hypercapnic respiratory failure On mechanical ventilator Pulmonary edema Pulmonary hypertension Metabolic acidosis Acute renal failure Morbid obesity Events: Remains on vent support On AC mode; RR 24, VT 450, PEEP 5, FiO2 40% Taper FiO2 as tolerated Off sedation Patient opens eyes and follows commands. CPAP trial today Patient was noted to be overbreathing the vent. Fentanyl for analgesia On Precedex drip for agitation. ABG reviewed, compensated. Hemodialysis per Nephrology - HD in the AM. Nephrology recs appreciated Continue antibiotics. Slight leukocytosis - WBC trended down to 12.5 K. Tube feeds for nutritional support Will continue with CPAP exercise during daytime Full support overnight Will consider extubation once mentation improves and on CPAP with PS 8, PEEP 5. Labs and imaging reviewed. Rest of plan as noted below. Plan: s/p intubation on mechanical ventilator. On AC mode; RR 24, VT 450, PEEP 5, FiO2 45% Titrate FIO2 to keep O2 saturation above 90%. VAP bundle. Daily ABG and CXR while intubated Continue antibiotics. IV fluids at 100 ml/hr. Tube feeds for nutritional support Pressors as necessary for hemodynamic support Titrate to keep mean arterial pressure greater than 65 mmHg. Hemodialysis per Nephrology Monitor renal function Monitor electrolytes. Supplement as necessary. Monitor ins and outs. Recommend diet and lifestyle modifications for weight reduction Obesity complicates all care GI prophylaxis. DVT prophylaxis. Prognosis: Poor given patient's multiple co-morbidities. Condition: Critical Rest of plan per hospitalist and other consultants. A total of 35 minutes of critical care time was spent reviewing the patient record, examining the patient, making a diagnostic and therapeutic plan, discussing this plan with the medical personnel, following up on diagnostic studies and following the patient for clinical stability excluding any and all procedures. At least 50% of this time was spent in direct, [id number] contact. Thank you, Dr. Mike Zheng, for allowing me to participate in this patient's care. Further recommendations will depend on the patient's clinical course. Please do not hesitate to contact me if you have any questions or concerns. This medical document was created using an electronic medical record system with [employer] computerized dictation system. Although these documentations are being carefully reviewed, there may still be some phonetic and typographical changes. The errors are purely typographical, due to imperfection on the software program, and do not reflect any compromise in the patient's medical care. Plan discussed with: Other (MARU Fofana) My Orders Orders - RAVI SABA MD Procedure Category Date Status Time Chest Portable XY 09/04/25 Resulted 20:34 Visit Coding Pulmonary Billing Provider: RAVI SABA MD Date of Service if different f: Sep 04, 2025 Common Visit Codes: [id number] INP/OBS CARE(HIGH), [id number] CARE 30-74 MIN RAVI SABA MD Sep 04, 2025 23:36
[2025-09-05] VITALS (107 sets, daily range): BP systolic 61–201; BP diastolic 37–159; PULSE 80–128; RESP 10–43; TEMP 98.2–99.9; O2SAT 86–100
[2025-09-05 03:37] LABS: Hematocrit 41.5 % (36.0-46.0); Hemoglobin 12.0 g/dL (12.2-16.2); Mean Corpuscular Hemoglobin 19.0 pg (28.0-32.0); Mean Corpuscular Volume 66.0 fL (80.0-100.0); Nucleated Red Blood Cells % 0.1 %
[2025-09-05 03:39] LABS: Anion Gap 15 (5-15); Carbon Dioxide 25 mmol/L (20-31); Chloride 102 mmol/L (98-107); Sodium 142 mmol/L (136-145)
[2025-09-05 03:40] LABS: Calcium 9.2 mg/dL (8.7-10.4)
[2025-09-05 03:45] LABS: BUN/Creatinine Ratio 10.9 (10.0-20.0); Magnesium 2.4 mg/dL (1.6-2.6)
[2025-09-05 03:57] LABS: Blood Urea Nitrogen 58 mg/dL (9-23); Glucose 125 mg/dL (74-106); Potassium 3.4 mmol/L (3.5-5.1)
[2025-09-05] MEDS ORDERED: POTASSIUM EFFERVESENT TAB 25 MEQ PO ONE (04:30)
--- NOTE | 2025-09-05 04:35 | DVH ---
CHEST RADIOGRAPH Indication: Intubated Technique: Single frontal view of the chest was obtained COMPARISON: XY CHEST PORTABLE on DOS: 09/04/25, XY CHEST XRAY 1 VIEW on DOS: 09/04/25, XY CHEST XRAY 1 VIEW on DOS: 09/03/25, XY CHEST XRAY 1 VIEW on DOS: 09/02/25, XY CHEST XRAY 1 VIEW on DOS: 09/01/25 FINDINGS: Lines and Tubes: Slight interval retraction of the endotracheal tube such that the tip projects approximately 6.9 cm above the level of the delfino. Remaining lines and tubes unchanged. Lungs: Stable appearing moderate diffuse increased prominence of the pulmonary vasculature. Slight interval decrease in bilateral pleural effusions. No pneumothorax. Cardiomediastinal contours: Unremarkable Bones: Unremarkable IMPRESSION: 1. Slight interval retraction of the endotracheal tube such that the tip projects approximately 6.9 cm above the level of the delfino. Remaining lines and tubes unchanged. 2. Slight interval decrease in bilateral pleural effusions. 3. Diffuse increased prominence of the pulmonary vasculature.
[2025-09-05] MEDS: POTASSIUM EFFERVESENT TAB 25 MEQ GT ONE (05:00)
[2025-09-05] MEDS: NOREPINEPHRINE 8 MG/250ML KIT 250 ML IV SCH (09:33)
[2025-09-05] MEDS: SODIUM CHL 0.9% 1000 ML BAG XX ONE (10:14)
[2025-09-05 10:52] LABS: Base Excess 1.7 mmol/L (-2.0-3.0)
[2025-09-05 14:55] LABS: Base Excess -1.0 mmol/L (-2.0-3.0)
[2025-09-05] MEDS: CEFEPIME 2GM/50ML NS 50 ML IV ONE (16:33)
--- NOTE | 2025-09-05 17:01 | DVHPN2 ---
Progress Note - Dictate Date Seen: Sep 05, 2025 Has the PT tested + for MRSA If YES, has PT been informed?: No Medical Necessity Reason Pt with a Central, PICC or Fol: Yes The following are medically ne: Central Line, Meng Catheter Reason for meng catheter: Strict I&O Subjective PT WELL KNOWN TO ME ORGANIC HEART DISEASE CAD HFrEF HTN 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 HYPERKALEMIA COPD HYPERLIPIDEMIA SIGN SX COMPLEX OF NOW WITH SOB CHEST PAIN RENAL FAILURE HYPERKALEMIA RESP FAILURE REQUIRING INTUBATION vital signs Vital Sign Date Time Temp Pulse Resp B/P (MAP) Pulse Ox O2 Delivery O2 Flow Rate FiO2 09/05/25 16:45 100 20 129/37 (67) 100 09/05/25 16:00 40 09/05/25 16:00 99.0 99.0 09/05/25 16:00 Mechanical Ventilator+ Total Intake and Output 09/04/25 09/04/25 09/05/25 15:00 23:00 07:00 Intake Total 48.120 ml 36.091 ml 642.198 ml Output Total 150 ml 450 ml Balance 48.120 ml -113.909 ml 192.198 ml medications Current Medications Medications Dose Ordered Sig/Adri Route Start Time Stop Time Status Last Admin Dose Admin Albuterol 2.5 mg Q4HPRN PRN NEB 08/20/25 23:15 09/03/25 14:29 2.5 MG Ipratropium [place] 0.5 mg Q4HPRN PRN NEB 08/20/25 23:15 09/03/25 06:48 0.5 MG Multivit/Ca Carb/ B Cmplx/FA/Prenat 1 tab DAILY PO 08/21/25 10:00 09/05/25 10:19 1 TAB Diagnostic Test (Pha) 1 strip ACHS 08/21/25 07:00 09/05/25 11:45 1 STRIP Insulin Human Regular ACHS SC 08/21/25 07:00 09/02/25 21:37 2 UNITS Dextrose 50 ml UD PRN IV 08/20/25 23:15 Sodium Chloride 10 ml Q8HR IV 08/21/25 06:00 09/05/25 14:22 10 ML Docusate Sodium 100 mg BIDPRN PRN PO 08/20/25 23:15 Acetaminophen 650 mg Q6HP PRN PO 08/20/25 23:15 Nitroglycerin 0.4 mg Q5MINP PRN SL 08/20/25 23:15 Hold Midazolam HCl 100 ml @ 1 mls/hr Q24H IV 08/21/25 01:45 09/02/25 01:07 2 MLS/HR Pantoprazole Sodium 40 mg DAILY IV 08/22/25 10:00 09/05/25 10:19 40 MG Sildenafil Citrate 20 mg TID@08,14,20 NG 08/30/25 20:00 09/05/25 14:22 20 MG Fentanyl Citrate 250 ml @ 2.5 mls/hr Q24H IV 08/31/25 21:15 09/03/25 01:06 5 MLS/HR Amlodipine Besylate 10 mg DAILY PO 09/01/25 10:45 09/05/25 10:20 10 MG Enteral Nutritional Formula 1,000 ml 30ML/HR GT 09/02/25 18:45 Amino Acid Protein 30 ml Q6HR GT 09/03/25 00:00 09/05/25 12:46 30 ML Norepinephrine Bitartrate 250 ml @ 3.75 mls/hr Q24H IV 09/05/25 08:00 Hydralazine HCl 50 mg Q8HR PO 09/05/25 22:00 Cefepime HCl 50 ml @ 12.5 mls/hr DAILY IV 09/06/25 10:00 laboratory and microbiology Laboratory Tests 09/05/25 02:48 Test 09/05/25 02:48 Range/Units Serum Glucose 125 H 74-106 mg/dL Problem List ORGANIC HEART DISEASE CAD HFrEF HTN 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 HYPERKALEMIA COPD HYPERLIPIDEMIA SIGN SX COMPLEX OF NOW WITH SOB CHEST PAIN RENAL FAILURE HYPERKALEMIA RESP FAILURE REQUIRING INTUBATION Assessment/Plan CORRECT HYPERKALEMIA CONSIDER ECHO IF INCONCLUSIVE CONSIDER L/RHC BNP 370 ABX DC BUMEX START IVF AT 100 CC/HR ADD LOKELMA K+ CORRECTED REPEAT BNP WILL PROCEED WITH L/RHC ON FRIDAY POSITIVE FOR INFLUENZA A AND B POSITIVE START WEANING PT CON IV FLUID L/RHC NL CORONARIES EF >50% LVEDP 17mmHg RHC RA 15-27mmHg RV 62/17 PA`66/ 18 PCWP 17 SEVERE PUL HYPERTENSION START REVATIO 20 MG TID HEMODIALYSIS IN AM CHEST CXR STILL WITH INFILTRATIVE PROCESS START WEAN SEDATION WITH HD SIGNIFICANT IMPROVEMENT IN LUNG EFFUSION AND INFILTRATE STOP SEDATION WEAN PT OFF VENT OTHERWISE CONSIDER TRACH CHEST CXR APPEARS TO HAVE IMPROVED SIGNIFICANTLY COMPARED TO 08/29/25 LAST RIGHT SIDED EFFUSION SIGNIFICANT CLEARING OF INTERSTITIAL INFILTRATE Dietary Evaluation Review Comments: Nutrition Recommendation: 1) EN Nepro Carbsteady @ 30ml/hr x 24hr (goal) along with Pro-stat 1 pk BID. Water flush 50ml Q6H if allowed, adjust PRN. TF at goal volume along with propofol & Pro-stat provide 1777 kcal (100%), 89 gm protein (83%), and 723 ml free water(including flush). 2) TPN if NPO >7 days 3) Monitor NPO status, lab values, weight trend, and I/O Expected Outcomes/Goals: Intake to meet >75% estimated needs Lab values to improve FU 2-3 days Plan discussed with: Patient Critical Care Time(min): 35 RAMIN GARCIA MD Sep 05, 2025 17:00
--- NOTE | 2025-09-05 17:58 | DVHPNRES ---
Progress Note Date Seen: Sep 05, 2025 Resident Creating Document: SALLY MINOR RESIDENT Has the PT tested + for MRSA If YES, has PT been informed?: No Medical Necessity Reason Pt with a Central, PICC or Fol: Yes The following are medically ne: Central Line, Meng Catheter Reason for meng catheter: Strict I&O Subjective Review of Systems Ms. Marin is a 75-year-old female with prior medical history of CHF, COPD with home oxygen, gout, anxiety, diabetes mellitus, hyperlipidemia, hypertension, and PAD, who to [facility] with chief complaint of shortness of breath and back and midsternal non-radiating chest pain. At time of this evaluation the patient is intubated and sedated, history was taken from her daughter Susy at bedside and from medical record. Per her daughter, patient has been complaining of progressively worsening shortness of breath for the last 2 weeks associated with general malaise and orthopnea, describing very wet coughing sounds when her mother lays flat. She states that her mother began complaining of worsening shortness of breath associated with non-radiating midsternal chest pain which prompted her to call EMS. Per record, on seen she was saturating 74%, she was placed on CPAP with inspiration increasing to 88% on route to the emergency department. On evaluation in the ED, is afebrile, slightly hypertensive, and tachypneic saturating 81% which she was placed on BiPAP. Initial labs significant for leukocytosis of 11.3, with elevated hematocrit, and thrombocytopenia, Hyperkalemia, creatinine 4.09, BUN 46, and ABG significant for respiratory acidosis, troponins are negative, BNP 2515.41.Patient is influenza A and B positive. Chest x-ray shows moderate to severe pulmonary edema. Patient further deteriorated requiring intubation for respiratory distress. She was started on IV Lasix, IV methylprednisolone, hyperkalemia protocol, bicarbonate drip, and nitroglycerin drip. On my initial evaluation in the ED, the patient is sedated, intubated, and mechanically ventilated, currently not on pressors. Prior Medical history: CHF, COPD, gout, anxiety, type 2 diabetes mellitus, hyperlipidemia, hypertension, PAD, pulmonary hypertension Previous surgical history: Left leg stenting for PAD Allergies: Denies Social history: Daughter refers the patient smokes cigarettes with cessation approximately 20 years ago Home medications: Allopurinol, insulin, gabapentin, simvastatin, tadalafil 09/05/2025: Patient seen in the ICU. She is intubated, on mechanical ventilation, no longer sedated, not on pressors. Per her nurse, her blood pressure has been elevated. She is afebrile, normocardic, with stable BP. Labs show uptrending WBCs. UA has been ordered and cefepime has been started. Patient was placed on pressure support today and tolerated approximately 4 hours. Tomorrow the patient will have dialysis in the morning with a CPAP trial. If successful, possible extubation. Objective vital signs Vital Sign Date Time Temp Pulse Resp B/P (MAP) Pulse Ox O2 Delivery O2 Flow Rate FiO2 09/05/25 16:45 100 20 129/37 (67) 100 09/05/25 16:00 40 09/05/25 16:00 99.0 99.0 09/05/25 16:00 Mechanical Ventilator+ Total Intake and Output 09/04/25 09/04/25 09/05/25 15:00 23:00 07:00 Intake Total 48.120 ml 36.091 ml 642.198 ml Output Total 150 ml 450 ml Balance 48.120 ml -113.909 ml 192.198 ml medications Current Medications Medications Dose Ordered Sig/Adri Route Start Time Stop Time Status Last Admin Dose Admin Albuterol 2.5 mg Q4HPRN PRN NEB 08/20/25 23:15 09/03/25 14:29 2.5 MG Ipratropium [place] 0.5 mg Q4HPRN PRN NEB 08/20/25 23:15 09/03/25 06:48 0.5 MG Multivit/Ca Carb/ B Cmplx/FA/Prenat 1 tab DAILY PO 08/21/25 10:00 09/05/25 10:19 1 TAB Diagnostic Test (Pha) 1 strip ACHS 08/21/25 07:00 09/05/25 11:45 1 STRIP Insulin Human Regular ACHS SC 08/21/25 07:00 09/02/25 21:37 2 UNITS Dextrose 50 ml UD PRN IV 08/20/25 23:15 Sodium Chloride 10 ml Q8HR IV 08/21/25 06:00 09/05/25 14:22 10 ML Docusate Sodium 100 mg BIDPRN PRN PO 08/20/25 23:15 Acetaminophen 650 mg Q6HP PRN PO 08/20/25 23:15 Nitroglycerin 0.4 mg Q5MINP PRN SL 08/20/25 23:15 Hold Midazolam HCl 100 ml @ 1 mls/hr Q24H IV 08/21/25 01:45 09/02/25 01:07 2 MLS/HR Pantoprazole Sodium 40 mg DAILY IV 08/22/25 10:00 09/05/25 10:19 40 MG Sildenafil Citrate 20 mg TID@08,14,20 NG 08/30/25 20:00 09/05/25 14:22 20 MG Fentanyl Citrate 250 ml @ 2.5 mls/hr Q24H IV 08/31/25 21:15 09/03/25 01:06 5 MLS/HR Amlodipine Besylate 10 mg DAILY PO 09/01/25 10:45 09/05/25 10:20 10 MG Enteral Nutritional Formula 1,000 ml 30ML/HR GT 09/02/25 18:45 Amino Acid Protein 30 ml Q6HR GT 09/03/25 00:00 09/05/25 12:46 30 ML Norepinephrine Bitartrate 250 ml @ 3.75 mls/hr Q24H IV 09/05/25 08:00 Hydralazine HCl 50 mg Q8HR PO 09/05/25 22:00 Cefepime HCl 50 ml @ 12.5 mls/hr DAILY IV 09/06/25 10:00 Examination General: Patient is intubated, mechanically ventilated, opens her eyes when asked to, follows commands. HEENT: Normocephalic, atraumatic, strabismus of the right eye, pin point pupils reactive, no EOM, pink conjunctiva, pink moist mucous membrane, ET tube in place, left internal jugular central line in place, orogastric tube in place Respiratory/pulmonary: Bilateral chest expansion, improved breath sounds bilaterally Cardiovascular: Normal RRR Abdomen: Obese, Abdomen nondistended, normal bowel sounds, soft, no grimacing is observed on palpation, no palpable masses. Extremities: No deformities, edema has improved, skin of bilateral lower extremities are extremely dry, pulses 2+ bilateral lower extremities, presence of Frank catheter in right groin region, will squeeze hands when prompted to Skin: No rashes or pruritus, there is no sacral edema present at this time. Neurological: cough and gag reflex present laboratory and microbiology Laboratory Tests 09/05/25 02:48 Test 09/05/25 02:48 Range/Units Serum Glucose 125 H 74-106 mg/dL Microbiology Date/Time Source Procedure Growth Status 08/22/25 12:52 Urine - Meng [place] Urine Culture - Final Complete 08/22/25 08:06 Nose MRSA Screen - Final Complete Problem List/Assessment/Plan Problem List/Assessment/Plan Neurology # Sedated - Versed Discontinued - Propofol: Discontinued - Fentanyl discontinued Cardiovascular # Acute on chronic HFrEF # Pulmonary Edema - BNP 2515.41 --> 370 - Chest xray 08/20/2025: Moderate to severe pulmonary edema - Chest xray 08/21/2025: Cardiomegaly with pulmonary venous congestion and edema - Echocardiogram 01/14/2022: EF > 60%, Limited echo windows, mild TR, MR - New echocardiogram has been ordered, pending read - Cardiology: Pending echo, considered R/LHC if inconclusive , discontinue bumex drip - Laxis 40 mg IV daily - Per nephrology: Start bumex drip + albumin and D5W 75 cc/hour -- Bumex drip discontinued by cardiology -- D5W has been discontinued due to resolution of hypernatremia - Chest Xray shows worsening, for which lasix 40 mg BID will be initiated - Lasix has been discontinued by Cardiology #Hypertension - Amlodipine 10 mg NG daily - Hydralazine 50 mg q 8 hours #CAD - R/L heart catheterization 08/30/2025: Left main, LAD and circumflex are patent, RCA patent, E is 50-55% #Severe pulmonary hypertension - R/L heart catheterization 08/30/2025: RA pressure 18 mmHg, RV pressure 62/16 mmHg, pulmonary artery pressure 66/18 mmHg, capillary wedge pressure: 17 mmHg - Per cardiology: Sildenafil 20mg NG TID, originally 40 but this was lowered Respiratory # Ventilator - intubated (08/21/2025) - On [facility] vent : VCAC Mode RR 24 TV 450ml, PEEP Of 5 and FiO2 of 40% - Patient was placed on on CPAP 11/02 today for exercise of respiratory muscles, she was pulling Vt of 450-550, she will remain on on full support overnight and CPAP as tolerated during the day for exercise. Currently no plan to extubate - Extubation will be considered once mentation has improved and she can tolerate CPAP at 8/. - Possible extubation tomorrow # Acute hypercapnic respiratory failure secondary to pulmonary edema # Acute COPD exacerbation - Methylprednisolone 40 mg IV, discontinued - Ipratropium medneb - Albuterol medneb - Ceftriaxone 1 g IV daily #Influenza A and B - Tamiflu 30 mg BID suspension, discontinued #Respiratory acidosis GI # Peptic ulcer prophylaxis -Pantoprazole 40 mg IV daily # Constipation - Lactulose 15 mL GT # Meng catheter # Possible Complicated UTI, present on admission - Ceftriaxone 1 g IV daily, discontinued Nephrology # COLE on CKD likely hemodynamically mediated/ VMN - NS 1000 cc bolus + 250 cc bolus in preparation for heart cath - NS 100cc/hr for 5 hours after procedure - Furosemide 100 mg IV after procedure, this was discontinued at the request of cardiology - Dialysis catheter placed by Dr. Bahena in right femoral region - Hemodialysis: 08/31 #Hyperkalemia, resolved - Per nephrology: trial of forced diuresis to enhance potassium excretion, serial chemistry panels, IV bicarbonate infusion, and avoidance of IV contrast if able, currently without urgent indication for kidney replacement therapy - Bicarbonate drip has been dc'd - Per Cardiology: [facility] . #Acute metabolic acidosis #Hypernatremia, resolved - D5W, discontinued Infectious disease # Influenza A and B Pneumonia - Tamiflu 30 mg BID suspension, discontinued # Possible Complicated UTI, present on admission - Ceftriaxone 1 g IV daily, discontinued - Cefepime (09/05-) Hem/onc #Thrombocytopenia, resolved - Monitor Endocrine #Type 2 diabetes mellitus - SSI -Accu cheks DVT prophylaxis: SCD PUD prophylaxis: Pantoprazole 40 mg IV daily Lines -L femoral Central line 08/20/2025 - discontinued on 08/29/2025 -L internal jugular central line 08/29/2025 -Meng catheter 08/20/2025 -ET tube: 08/21/2025 Nutrition: Nepro at a rate of 30 Drips during [facility] ventilation Versed Discontinued Fentanyl discontinued Propofol: Discontinued Nitroglycerin: Discontinued Nicardipine drip: Discontinued Bicarbonate drip: Discontinued Sedation has been discontinued. The patient is undergoing CPAP for respiratory exercise in preparation for extubation once mentation permits. Critical care time 51 minutes excluding procedure. Code status discussed greater than 20 minutes: Full CODE STATUS. Daughter, Susy, was contacted via telephone and updated on her mother's condition. Plan discussed with Dr. Lopez Plan discussed with: Daughter, Other (Nurse (Ct)) My Orders My Orders Orders - SALLY MINOR RESIDENT Procedure Category Date Status Time Cpap Trial For Am ORDERS 09/05/25 Transmitted 08:34 Dietary Evaluation Review Comments: Nutrition Recommendation: 1) EN Nepro Carbsteady @ 30ml/hr x 24hr (goal) along with Pro-stat 1 pk BID. Water flush 50ml Q6H if allowed, adjust PRN. TF at goal volume along with propofol & Pro-stat provide 1777 kcal (100%), 89 gm protein (83%), and 723 ml free water(including flush). 2) TPN if NPO >7 days 3) Monitor NPO status, lab values, weight trend, and I/O Expected Outcomes/Goals: Intake to meet >75% estimated needs Lab values to improve FU 2-3 days Visit Coding STANDARD RES Billing Provider: PATRICIA LOPEZ MD Date of Service if different f: Sep 05, 2025 Common Visit Codes: 68024-[id number] CARE 30-74 MIN Date of Service: Sep 05, 2025 Billing Provider: PATRICIA LOPEZ MD Common Visit Codes: 14522-[id number] CARE 30-74 MIN SALLY MINOR RESIDENT Sep 05, 2025 17:57 PATRICIA LOPEZ MD Sep 06, 2025 11:35
[2025-09-05] MEDS: Nepro With Carb Steady 1 Liter Bottle GT SCH (22:43)
[2025-09-06] VITALS (92 sets, daily range): BP systolic 94–188; BP diastolic 48–94; PULSE 66–111; RESP 7–29; TEMP 98.6–99.5; O2SAT 89–100
--- NOTE | 2025-09-06 04:05 | DVH ---
CHEST RADIOGRAPH Indication: Intubated Technique: Single frontal view of the chest was obtained COMPARISON: XY CHEST XRAY 1 VIEW on DOS: 09/05/25, XY CHEST PORTABLE on DOS: 09/04/25, XY CHEST XRAY 1 VIEW on DOS: 09/04/25, XY CHEST XRAY 1 VIEW on DOS: 09/03/25, XY CHEST XRAY 1 VIEW on DOS: 09/02/25 FINDINGS: Lines and Tubes: Interval advancement of the endotracheal tube such that the tip now projects 5.1 cm above the level of the delfino. Remaining lines and tubes unchanged. Lungs: Stable appearing moderate diffuse increased prominence of the pulmonary vasculature and bilateral pleural effusions. No pneumothorax. Cardiomediastinal contours: Cardiomegaly. Bones: Unremarkable IMPRESSION: 1. Interval advancement of the endotracheal tube in satisfactory position. Remaining lines and tubes unchanged. 2. Stable diffuse increased prominence of the pulmonary vasculature and bilateral pleural effusions. 3. Cardiomegaly.
[2025-09-06 04:37] LABS: Hemoglobin 10.5 g/dL (12.2-16.2); Mean Corpuscular Hemoglobin 18.7 pg (28.0-32.0)
[2025-09-06 04:40] LABS: Hematocrit 36.9 % (36.0-46.0); Mean Corpuscular Volume 65.5 fL (80.0-100.0); Nucleated Red Blood Cells % 0.2 %
[2025-09-06 04:49] LABS: Chloride 104 mmol/L (98-107); Potassium 3.6 mmol/L (3.5-5.1); Sodium 144 mmol/L (136-145)
[2025-09-06 04:50] LABS: Anion Gap 13 (5-15); Carbon Dioxide 27 mmol/L (20-31)
[2025-09-06 04:51] LABS: Calcium 8.9 mg/dL (8.7-10.4)
[2025-09-06 04:55] LABS: Glucose 94 mg/dL (74-106)
[2025-09-06 04:56] LABS: BUN/Creatinine Ratio 9.9 (10.0-20.0)
[2025-09-06 05:00] LABS: Blood Urea Nitrogen 49 mg/dL (9-23)
[2025-09-06 06:31] LABS: Anisocytosis Moderate
--- NOTE | 2025-09-06 07:11 | DVHPN2 ---
Progress Note - Dictate Date Seen: Sep 06, 2025 Has the PT tested + for MRSA If YES, has PT been informed?: No Medical Necessity Reason Pt with a Central, PICC or Fol: Yes The following are medically ne: Central Line, Emng Catheter Reason for meng catheter: Strict I&O Subjective Patient awake, moving spontaneously this morning. RT at bedside during my rounds. vital signs Vital Sign Date Time Temp Pulse Resp B/P (MAP) Pulse Ox O2 Delivery O2 Flow Rate FiO2 09/06/25 06:29 94 24 164/74 (104) 100 30 09/06/25 04:00 Mechanical Ventilator+ 09/05/25 23:27 99.9 99.9 Total Intake and Output 09/05/25 09/05/25 09/06/25 15:00 23:00 07:00 Intake Total 33.083 ml Balance 33.083 ml medications Current Medications Medications Dose Ordered Sig/Adri Route Start Time Stop Time Status Last Admin Dose Admin Albuterol 2.5 mg Q4HPRN PRN NEB 08/20/25 23:15 09/03/25 14:29 2.5 MG Ipratropium [place] 0.5 mg Q4HPRN PRN NEB 08/20/25 23:15 09/03/25 06:48 0.5 MG Multivit/Ca Carb/ B Cmplx/FA/Prenat 1 tab DAILY PO 08/21/25 10:00 09/05/25 10:19 1 TAB Diagnostic Test (Pha) 1 strip ACHS 08/21/25 07:00 09/05/25 21:29 1 STRIP Insulin Human Regular ACHS SC 08/21/25 07:00 09/02/25 21:37 2 UNITS Dextrose 50 ml UD PRN IV 08/20/25 23:15 Sodium Chloride 10 ml Q8HR IV 08/21/25 06:00 09/05/25 21:29 10 ML Docusate Sodium 100 mg BIDPRN PRN PO 08/20/25 23:15 Acetaminophen 650 mg Q6HP PRN PO 08/20/25 23:15 Nitroglycerin 0.4 mg Q5MINP PRN SL 08/20/25 23:15 Hold Midazolam HCl 100 ml @ 1 mls/hr Q24H IV 08/21/25 01:45 09/02/25 01:07 2 MLS/HR Pantoprazole Sodium 40 mg DAILY IV 08/22/25 10:00 09/05/25 10:19 40 MG Sildenafil Citrate 20 mg TID@08,14,20 NG 08/30/25 20:00 09/05/25 21:29 20 MG Fentanyl Citrate 250 ml @ 2.5 mls/hr Q24H IV 08/31/25 21:15 09/03/25 01:06 5 MLS/HR Amlodipine Besylate 10 mg DAILY PO 09/01/25 10:45 09/05/25 10:20 10 MG Enteral Nutritional Formula 1,000 ml 30ML/HR GT 09/02/25 18:45 09/05/25 22:43 1,000 ML Amino Acid Protein 30 ml Q6HR GT 09/03/25 00:00 09/05/25 22:42 30 ML Norepinephrine Bitartrate 250 ml @ 3.75 mls/hr Q24H IV 09/05/25 08:00 Hydralazine HCl 50 mg Q8HR PO 09/05/25 22:00 09/05/25 22:42 50 MG Cefepime HCl 50 ml @ 12.5 mls/hr DAILY IV 09/06/25 10:00 objective Gen: nad, intubated heent: nc/at, mmm lungs: cta anteriorly cvs: no rub abd: soft, bowel sounds audible ext: Trace edema laboratory and microbiology Laboratory Tests 09/06/25 04:05 Test 09/06/25 04:05 Range/Units Serum Glucose 94 74-106 mg/dL Assessment/Plan IMP: 1) Hemodynamically mediated acute kidney injury and vasomotor nephropathy/ ATN requiring kidney replacement therapy 2) chronic kidney disease stage IIIB possibly secondary to underlying diabetic kidney disease 3) acute hypoxemic respiratory failure 4) working diagnosis of possible influenza pneumonia 5) hyperkalemia REC: - dialysis this morning - UF as tolerated - noted plans for weaning trial Dietary Evaluation Review Comments: Nutrition Recommendation: 1) EN Nepro Carbsteady @ 30ml/hr x 24hr (goal) along with Pro-stat 1 pk BID. Water flush 50ml Q6H if allowed, adjust PRN. TF at goal volume along with propofol & Pro-stat provide 1777 kcal (100%), 89 gm protein (83%), and 723 ml free water(including flush). 2) TPN if NPO >7 days 3) Monitor NPO status, lab values, weight trend, and I/O Expected Outcomes/Goals: Intake to meet >75% estimated needs Lab values to improve FU 2-3 days Plan discussed with: Other JOSEPHINE DONNELLY MD Sep 06, 2025 07:10
[2025-09-06 07:27] LABS: Base Excess -2.7 mmol/L (-2.0-3.0)
[2025-09-06] MEDS: CEFEPIME 1GM/50ML 50 ML IV SCH (13:36)
[2025-09-06] MEDS: LABETALOL HCL 20 MG/4 ML VL IV ONE (15:00)
--- NOTE | 2025-09-06 16:06 | DVHPNRES ---
Progress Note Date Seen: Sep 06, 2025 Resident Creating Document: SALLY MINOR RESIDENT Has the PT tested + for MRSA If YES, has PT been informed?: No Medical Necessity Reason Pt with a Central, PICC or Fol: Yes The following are medically ne: Central Line, Meng Catheter Reason for meng catheter: Strict I&O Subjective Review of Systems Ms. Marin is a 75-year-old female with prior medical history of CHF, COPD with home oxygen, gout, anxiety, diabetes mellitus, hyperlipidemia, hypertension, and PAD, who to [facility] with chief complaint of shortness of breath and back and midsternal non-radiating chest pain. At time of this evaluation the patient is intubated and sedated, history was taken from her daughter Susy at bedside and from medical record. Per her daughter, patient has been complaining of progressively worsening shortness of breath for the last 2 weeks associated with general malaise and orthopnea, describing very wet coughing sounds when her mother lays flat. She states that her mother began complaining of worsening shortness of breath associated with non-radiating midsternal chest pain which prompted her to call EMS. Per record, on seen she was saturating 74%, she was placed on CPAP with inspiration increasing to 88% on route to the emergency department. On evaluation in the ED, is afebrile, slightly hypertensive, and tachypneic saturating 81% which she was placed on BiPAP. Initial labs significant for leukocytosis of 11.3, with elevated hematocrit, and thrombocytopenia, Hyperkalemia, creatinine 4.09, BUN 46, and ABG significant for respiratory acidosis, troponins are negative, BNP 2515.41.Patient is influenza A and B positive. Chest x-ray shows moderate to severe pulmonary edema. Patient further deteriorated requiring intubation for respiratory distress. She was started on IV Lasix, IV methylprednisolone, hyperkalemia protocol, bicarbonate drip, and nitroglycerin drip. On my initial evaluation in the ED, the patient is sedated, intubated, and mechanically ventilated, currently not on pressors. Prior Medical history: CHF, COPD, gout, anxiety, type 2 diabetes mellitus, hyperlipidemia, hypertension, PAD, pulmonary hypertension Previous surgical history: Left leg stenting for PAD Allergies: Denies Social history: Daughter refers the patient smokes cigarettes with cessation approximately 20 years ago Home medications: Allopurinol, insulin, gabapentin, simvastatin, tadalafil 09/06/2025; Patient seen in the ICU. She is intubated, on mechanical ventilation, no longer sedated, not on pressors. Per nurse, no adverse events over night to report. She is afebrile, normocardic, with stable BP. Labs show downtrending WBCs. Patient underwent dialysis today with 3L pulled. Patient was placed on CPAP after dialysis, how she failed CPAP trial. We will try one more time tomorrow. Possibility of tracheostomy has been discussed with her daughter. 09/05/2025: Patient seen in the ICU. She is intubated, on mechanical ventilation, no longer sedated, not on pressors. Per her nurse, her blood pressure has been elevated. She is afebrile, normocardic, with stable BP. Labs show uptrending WBCs. UA has been ordered and cefepime has been started. Patient was placed on pressure support today and tolerated approximately 4 hours. Tomorrow the patient will have dialysis in the morning with a CPAP trial. If successful, possible extubation. Objective vital signs Vital Sign Date Time Temp Pulse Resp B/P (MAP) Pulse Ox O2 Delivery O2 Flow Rate FiO2 09/06/25 15:46 168/77 09/06/25 15:13 89 29 98 30 09/06/25 14:58 98.6 209.5 09/06/25 14:00 Mechanical Ventilator+ Total Intake and Output 09/05/25 09/05/25 09/06/25 15:00 23:00 07:00 Intake Total 33.083 ml 6.015 ml 586.090 ml Output Total 600 ml Balance 33.083 ml 6.015 ml -13.910 ml medications Current Medications Medications Dose Ordered Sig/Adri Route Start Time Stop Time Status Last Admin Dose Admin Albuterol 2.5 mg Q4HPRN PRN NEB 08/20/25 23:15 09/03/25 14:29 2.5 MG Ipratropium Bigfoot 0.5 mg Q4HPRN PRN NEB 08/20/25 23:15 09/03/25 06:48 0.5 MG Multivit/Ca Carb/ B Cmplx/FA/Prenat 1 tab DAILY PO 08/21/25 10:00 09/06/25 15:46 1 TAB Diagnostic Test (Pha) 1 strip ACHS 08/21/25 07:00 09/06/25 11:45 1 STRIP Insulin Human Regular ACHS SC 08/21/25 07:00 09/02/25 21:37 2 UNITS Dextrose 50 ml UD PRN IV 08/20/25 23:15 Sodium Chloride 10 ml Q8HR IV 08/21/25 06:00 09/06/25 14:00 10 ML Docusate Sodium 100 mg BIDPRN PRN PO 08/20/25 23:15 Acetaminophen 650 mg Q6HP PRN PO 08/20/25 23:15 Nitroglycerin 0.4 mg Q5MINP PRN SL 08/20/25 23:15 Hold Midazolam HCl 100 ml @ 1 mls/hr Q24H IV 08/21/25 01:45 09/02/25 01:07 2 MLS/HR Pantoprazole Sodium 40 mg DAILY IV 08/22/25 10:00 09/06/25 13:36 40 MG Sildenafil Citrate 20 mg TID@08,14,20 NG 08/30/25 20:00 09/06/25 15:46 20 MG Fentanyl Citrate 250 ml @ 2.5 mls/hr Q24H IV 08/31/25 21:15 09/03/25 01:06 5 MLS/HR Amlodipine Besylate 10 mg DAILY PO 09/01/25 10:45 09/06/25 15:46 10 MG Enteral Nutritional Formula 1,000 ml 30ML/HR GT 09/02/25 18:45 09/05/25 22:43 1,000 ML Amino Acid Protein 30 ml Q6HR GT 09/03/25 00:00 09/05/25 22:42 30 ML Norepinephrine Bitartrate 250 ml @ 3.75 mls/hr Q24H IV 09/05/25 08:00 Hydralazine HCl 50 mg Q8HR PO 09/05/25 22:00 09/06/25 07:23 50 MG Cefepime HCl 50 ml @ 12.5 mls/hr DAILY IV 09/06/25 10:00 09/06/25 13:36 12.5 MLS/HR Examination General: Patient is intubated, mechanically ventilated, opens her eyes when asked to, follows commands. HEENT: Normocephalic, atraumatic, strabismus of the right eye, pin point pupils reactive, no EOM, pink conjunctiva, pink moist mucous membrane, ET tube in place, left internal jugular central line in place, orogastric tube in place Respiratory/pulmonary: Bilateral chest expansion, improved breath sounds bilaterally Cardiovascular: Normal RRR Abdomen: Obese, Abdomen nondistended, normal bowel sounds, soft, no grimacing is observed on palpation, no palpable masses. Extremities: No deformities, skin of bilateral lower extremities are extremely dry, pulses 2+ bilateral lower extremities, presence of Frank catheter in right groin region, will squeeze hands when prompted to Skin: No rashes or pruritus, there is no sacral edema present at this time. Neurological: cough and gag reflex present laboratory and microbiology Laboratory Tests 09/06/25 04:05 Test 09/06/25 04:05 Range/Units Serum Glucose 94 74-106 mg/dL Microbiology Date/Time Source Procedure Growth Status 08/22/25 12:52 Urine - Meng Port Urine Culture - Final Complete 08/22/25 08:06 Nose MRSA Screen - Final Complete Problem List/Assessment/Plan Problem List/Assessment/Plan Neurology # Sedated - Versed Discontinued - Propofol: Discontinued - Fentanyl discontinued Cardiovascular # Acute on chronic HFrEF # Pulmonary Edema - BNP 2515.41 --> 370 - Chest xray 08/20/2025: Moderate to severe pulmonary edema - Chest xray 08/21/2025: Cardiomegaly with pulmonary venous congestion and edema - Echocardiogram 01/14/2022: EF > 60%, Limited echo windows, mild TR, MR - Echocardiogram 10/22/2024: Technically good study sinus rhythm. Concentric LVH with left atrial enlargement. Mild aortic sclerosis. Mild thickening of the anterior and posterior mitral leaflets. Valves appear to be structurally normal. Left ventricular function is preserved at 60% with normal RV function. - Cardiology: Pending echo, considered R/LHC if inconclusive , discontinue bumex drip - Laxis 40 mg IV daily - Per nephrology: Start bumex drip + albumin and D5W 75 cc/hour -- Bumex drip discontinued by cardiology -- D5W has been discontinued due to resolution of hypernatremia - Chest Xray shows worsening, for which lasix 40 mg BID will be initiated - Lasix has been discontinued by Cardiology #Hypertension - Amlodipine 10 mg NG daily - Hydralazine 50 mg q 8 hours #CAD - R/L heart catheterization 08/30/2025: Left main, LAD and circumflex are patent, RCA patent, EF is 50-55% #Severe pulmonary hypertension - R/L heart catheterization 08/30/2025: RA pressure 18 mmHg, RV pressure 62/16 mmHg, pulmonary artery pressure 66/18 mmHg, capillary wedge pressure: 17 mmHg - Per cardiology: Sildenafil 20mg NG TID, originally 40 but this was lowered Respiratory # Ventilator - intubated (08/21/2025) - On [facility] vent : VCAC Mode RR 24 TV 450ml, PEEP Of 5 and FiO2 of 40% - Patient was placed on on CPAP 11/02 today for exercise of respiratory muscles, she was pulling Vt of 450-550, she will remain on on full support overnight and CPAP as tolerated during the day for exercise. Currently no plan to extubate - Extubation will be considered once mentation has improved and she can tolerate CPAP at 05/03. - Patient has failed CPAP trial today, will retry tomorrow. # Acute hypercapnic respiratory failure secondary to pulmonary edema # Acute COPD exacerbation - Methylprednisolone 40 mg IV, discontinued - Ipratropium medneb - Albuterol medneb - Ceftriaxone 1 g IV daily (discontinued) #Influenza A and B - Tamiflu 30 mg BID suspension, discontinued #Respiratory acidosis GI # Peptic ulcer prophylaxis -Pantoprazole 40 mg IV daily # Constipation - Lactulose 15 mL GT # Meng catheter # Possible Complicated UTI, present on admission - Ceftriaxone 1 g IV daily, discontinued Nephrology # COLE on CKD likely hemodynamically mediated/ VMN - NS 1000 cc bolus + 250 cc bolus in preparation for heart cath - NS 100cc/hr for 5 hours after procedure - Furosemide 100 mg IV after procedure, this was discontinued at the request of cardiology - Dialysis catheter placed by Dr. Bahena in right femoral region - Hemodialysis #Hyperkalemia, resolved - Per nephrology: trial of forced diuresis to enhance potassium excretion, serial chemistry panels, IV bicarbonate infusion, and avoidance of IV contrast if able, currently without urgent indication for kidney replacement therapy - Bicarbonate drip has been dc'd - Per Cardiology: Zoran . #Acute metabolic acidosis #Hypernatremia, resolved - D5W, discontinued Infectious disease # Influenza A and B Pneumonia - Tamiflu 30 mg BID suspension, discontinued # Possible Complicated UTI, present on admission - Ceftriaxone 1 g IV daily, discontinued - Cefepime (09/05-) Hem/onc #Thrombocytopenia, resolved - Monitor Endocrine #Type 2 diabetes mellitus - SSI -Accu cheks DVT prophylaxis: SCD PUD prophylaxis: Pantoprazole 40 mg IV daily Lines -L femoral Central line 08/20/2025 - discontinued on 08/29/2025 -L internal jugular central line 08/29/2025 -Meng catheter 08/20/2025 -ET tube: 08/21/2025 Nutrition: Nepro at a rate of [facility] Versed Discontinued Fentanyl discontinued Propofol: Discontinued Nitroglycerin: Discontinued Nicardipine drip: Discontinued Bicarbonate drip: Discontinued Patient has failed CPAP trial, we will try again in the AM. Possibility of tracheostomy has been discussed with her daughter, Susy. Critical care time 47 minutes excluding procedure. Code status discussed greater than 20 minutes: Full CODE STATUS. Daughter, Susy, was updated of her mother's condition at bedside. Plan discussed with Dr. Lopez Plan discussed with: Daughter, Other (Nurse (Taty)) My Orders My Orders Orders - SALLY MINOR RESIDENT Procedure Category Date Status Time Abg W/ Co-Ox RT 09/06/25 Logged 04:00 Chest Xray 1 View XY 09/06/25 Resulted 04:00 Dietary Evaluation Review Comments: Nutrition Recommendation: 1) EN Nepro Carbsteady @ 30ml/hr x 24hr (goal) along with Pro-stat 1 pk BID. Water flush 50ml Q6H if allowed, adjust PRN. TF at goal volume along with propofol & Pro-stat provide 1777 kcal (100%), 89 gm protein (83%), and 723 ml free water(including flush). 2) TPN if NPO >7 days 3) Monitor NPO status, lab values, weight trend, and I/O Expected Outcomes/Goals: Intake to meet >75% estimated needs Lab values to improve FU 2-3 days Visit Coding STANDARD RES Billing Provider: PATRICIA LOPEZ MD Date of Service if different f: Sep 06, 2025 Common Visit Codes: [id number] CARE 30-74 MIN SALLY MINOR RESIDENT Sep 06, 2025 16:06 PATRICIA LOPEZ MD Sep 07, 2025 14:36
[2025-09-06] MEDS: ALBUMIN 25% 100 ML IV ONE (22:49)
[2025-09-06] MEDS: SODIUM CHL 0.9% 1000 ML BAG XX ONE (22:50)
[2025-09-07] VITALS (112 sets, daily range): BP systolic 80–187; BP diastolic 43–113; PULSE 61–109; RESP 10–39; TEMP 91.9–99.3; O2SAT 90–100
[2025-09-07 00:03] LABS: Urine Protein, UAD 3+ (Negative)
--- NOTE | 2025-09-07 04:53 | DVH ---
CHEST RADIOGRAPH INDICATION: Intubtaed TECHNIQUE: Single frontal view of the chest was obtained COMPARISON: XY CHEST XRAY 1 VIEW on DOS: 09/06/25, XY CHEST XRAY 1 VIEW on DOS: 09/05/25, XY CHEST PORTABLE on DOS: 09/04/25, XY CHEST XRAY 1 VIEW on DOS: 09/04/25, XY CHEST XRAY 1 VIEW on DOS: 09/03/25 FINDINGS: Lines and Tubes: Slight interval retraction of the endotracheal tube such that the tip now projects 7.1 cm above the level of the delfino. Remaining lines and tubes unchanged. Lungs: Stable moderate diffuse increased prominence of the pulmonary vasculature and small bilateral pleural effusions. No pneumothorax. Cardiomediastinal contours: Cardiomegaly. Bones: Unremarkable IMPRESSION: 1. Slight interval retraction of the endotracheal tube such that the tip now projects 7.1 cm above the level of the delfino. Remaining lines and tubes unchanged. 2. Cardiomegaly, pulmonary vascular congestion and bilateral pleural effusions.
[2025-09-07 05:07] LABS: Hematocrit 38.1 % (36.0-46.0); Hemoglobin 10.9 g/dL (12.2-16.2); Mean Corpuscular Hemoglobin 18.9 pg (28.0-32.0); Mean Corpuscular Volume 66.3 fL (80.0-100.0); Nucleated Red Blood Cells % 0.0 %
[2025-09-07 05:11] LABS: Anion Gap 13 (5-15); Carbon Dioxide 28 mmol/L (20-31); Chloride 101 mmol/L (98-107); Potassium 3.7 mmol/L (3.5-5.1); Sodium 142 mmol/L (136-145)
[2025-09-07 05:12] LABS: Calcium 9.3 mg/dL (8.7-10.4)
[2025-09-07 05:17] LABS: BUN/Creatinine Ratio 8.8 (10.0-20.0); Glucose 98 mg/dL (74-106)
[2025-09-07 05:24] LABS: Blood Urea Nitrogen 45 mg/dL (9-23)
[2025-09-07 08:19] LABS: Base Excess -1.2 mmol/L (-2.0-3.0)
[2025-09-07] MEDS ORDERED: FUROSEMIDE 100 MG/10ML VIAL IV ONE (08:30)
--- NOTE | 2025-09-07 10:15 | DVHPNRES ---
Progress Note Date Seen: Sep 07, 2025 Resident Creating Document: SALLY MINOR RESIDENT Has the PT tested + for MRSA If YES, has PT been informed?: No Medical Necessity Reason Pt with a Central, PICC or Fol: Yes The following are medically ne: Central Line, Meng Catheter Reason for meng catheter: Strict I&O Subjective Review of Systems Ms. Marin is a 75-year-old female with prior medical history of CHF, COPD with home oxygen, gout, anxiety, diabetes mellitus, hyperlipidemia, hypertension, and PAD, who to [facility] with chief complaint of shortness of breath and back and midsternal non-radiating chest pain. At time of this evaluation the patient is intubated and sedated, history was taken from her daughter Susy at bedside and from medical record. Per her daughter, patient has been complaining of progressively worsening shortness of breath for the last 2 weeks associated with general malaise and orthopnea, describing very wet coughing sounds when her mother lays flat. She states that her mother began complaining of worsening shortness of breath associated with non-radiating midsternal chest pain which prompted her to call EMS. Per record, on seen she was saturating 74%, she was placed on CPAP with inspiration increasing to 88% on route to the emergency department. On evaluation in the ED, is afebrile, slightly hypertensive, and tachypneic saturating 81% which she was placed on BiPAP. Initial labs significant for leukocytosis of 11.3, with elevated hematocrit, and thrombocytopenia, Hyperkalemia, creatinine 4.09, BUN 46, and ABG significant for respiratory acidosis, troponins are negative, BNP 2515.41.Patient is influenza A and B positive. Chest x-ray shows moderate to severe pulmonary edema. Patient further deteriorated requiring intubation for respiratory distress. She was started on IV Lasix, IV methylprednisolone, hyperkalemia protocol, bicarbonate drip, and nitroglycerin drip. On my initial evaluation in the ED, the patient is sedated, intubated, and mechanically ventilated, currently not on pressors. Prior Medical history: CHF, COPD, gout, anxiety, type 2 diabetes mellitus, hyperlipidemia, hypertension, PAD, pulmonary hypertension Previous surgical history: Left leg stenting for PAD Allergies: Denies Social history: Daughter refers the patient smokes cigarettes with cessation approximately 20 years ago Home medications: Allopurinol, insulin, gabapentin, simvastatin, tadalafil 09/07/2025: Patient seen in the ICU. She is intubated, mechanically ventilated, no longer on sedation. Per nurse, no overnight events to report. She is afebrile, normocardic, with stable BP. Increased in WBCs today. CPAP trial today was successful. Patient was extubated this afternoon. We will continue to monitor. 09/06/2025; Patient seen in the ICU. She is intubated, on mechanical ventilation, no longer sedated, not on pressors. Per nurse, no adverse events over night to report. She is afebrile, normocardic, with stable BP. Labs show downtrending WBCs. Patient underwent dialysis today with 3L pulled. Patient was placed on CPAP after dialysis, how she failed CPAP trial. We will try one more time tomorrow. Possibility of tracheostomy has been discussed with her daughter. 09/05/2025: Patient seen in the ICU. She is intubated, on mechanical ventilation, no longer sedated, not on pressors. Per her nurse, her blood pressure has been elevated. She is afebrile, normocardic, with stable BP. Labs show uptrending WBCs. UA has been ordered and cefepime has been started. Patient was placed on pressure support today and tolerated approximately 4 hours. Tomorrow the patient will have dialysis in the morning with a CPAP trial. If successful, possible extubation. Objective vital signs Vital Sign Date Time Temp Pulse Resp B/P (MAP) Pulse Ox O2 Delivery O2 Flow Rate FiO2 09/07/25 08:00 91 24 95 Mechanical Ventilator+ 30 30 09/07/25 07:47 123/53 (76) 09/07/25 06:45 99.0 210.2 Total Intake and Output 09/06/25 09/06/25 09/07/25 15:00 23:00 07:00 Intake Total 64.099 ml 349.064 ml 459.024 ml Output Total 50 ml 150 ml Balance 64.099 ml 299.064 ml 309.024 ml medications Current Medications Medications Dose Ordered Sig/Adri Route Start Time Stop Time Status Last Admin Dose Admin Albuterol 2.5 mg Q4HPRN PRN NEB 08/20/25 23:15 09/07/25 07:00 2.5 MG Ipratropium [place] 0.5 mg Q4HPRN PRN NEB 08/20/25 23:15 09/07/25 07:00 0.5 MG Multivit/Ca Carb/ B Cmplx/FA/Prenat 1 tab DAILY PO 08/21/25 10:00 09/06/25 15:46 1 TAB Diagnostic Test (Pha) 1 strip ACHS 08/21/25 07:00 09/07/25 05:43 1 STRIP Insulin Human Regular ACHS SC 08/21/25 07:00 09/02/25 21:37 2 UNITS Dextrose 50 ml UD PRN IV 08/20/25 23:15 Sodium Chloride 10 ml Q8HR IV 08/21/25 06:00 09/07/25 05:43 10 ML Docusate Sodium 100 mg BIDPRN PRN PO 08/20/25 23:15 Acetaminophen 650 mg Q6HP PRN PO 08/20/25 23:15 Nitroglycerin 0.4 mg Q5MINP PRN SL 08/20/25 23:15 Hold Midazolam HCl 100 ml @ 1 mls/hr Q24H IV 08/21/25 01:45 09/02/25 01:07 2 MLS/HR Pantoprazole Sodium 40 mg DAILY IV 08/22/25 10:00 09/06/25 13:36 40 MG Sildenafil Citrate 20 mg TID@08,14,20 NG 08/30/25 20:00 09/06/25 22:40 20 MG Fentanyl Citrate 250 ml @ 2.5 mls/hr Q24H IV 08/31/25 21:15 09/03/25 01:06 5 MLS/HR Amlodipine Besylate 10 mg DAILY PO 09/01/25 10:45 09/06/25 15:46 10 MG Enteral Nutritional Formula 1,000 ml 30ML/HR GT 09/02/25 18:45 09/05/25 22:43 1,000 ML Amino Acid Protein 30 ml Q6HR GT 09/03/25 00:00 09/06/25 22:42 30 ML Norepinephrine Bitartrate 250 ml @ 3.75 mls/hr Q24H IV 09/05/25 08:00 Hydralazine HCl 50 mg Q8HR PO 09/05/25 22:00 09/07/25 07:09 50 MG Cefepime HCl 50 ml @ 12.5 mls/hr DAILY IV 09/06/25 10:00 09/06/25 13:36 12.5 MLS/HR Examination General: Patient is AOx4, follows commands, without focal deficits HEENT: Normocephalic, atraumatic, strabismus of the right eye, pin point pupils reactive, no EOM, pink conjunctiva, pink moist mucous membrane, nasogastric tube in place Respiratory/pulmonary: Bilateral chest expansion, improved breath sounds bilaterally Cardiovascular: Normal RRR Abdomen: Obese, Abdomen nondistended, normal bowel sounds, soft, no grimacing is observed on palpation, no palpable masses. Extremities: No deformities, skin of bilateral lower extremities are extremely dry, pulses 2+ bilateral lower extremities, presence of Frank catheter in right groin region, will squeeze hands when prompted to Skin: No rashes or pruritus, there is no sacral edema present at this time. Neurological: Follows commands, without focal deficits laboratory and microbiology Laboratory Tests 09/07/25 03:47 Test 09/07/25 03:47 Range/Units Serum Glucose 98 74-106 mg/dL Microbiology Date/Time Source Procedure Growth Status 09/06/25 04:10 Blood Blood Culture - Preliminary NO GROWTH AFTER 24 HOURS OF INCUBATION. Resulted 08/22/25 12:52 Urine - Meng [place] Urine Culture - Final Complete 08/22/25 08:06 Nose MRSA Screen - Final Complete Problem List/Assessment/Plan Problem List/Assessment/Plan Neurology # Sedated - Versed Discontinued - Propofol: Discontinued - Fentanyl discontinued Cardiovascular # Acute on chronic HFrEF # Pulmonary Edema - BNP 2515.41 --> 370 - Chest xray 08/20/2025: Moderate to severe pulmonary edema - Chest xray 08/21/2025: Cardiomegaly with pulmonary venous congestion and edema - Echocardiogram 01/14/2022: EF > 60%, Limited echo windows, mild TR, MR - Echocardiogram 10/22/2024: Technically good study sinus rhythm. Concentric LVH with left atrial enlargement. Mild aortic sclerosis. Mild thickening of the anterior and posterior mitral leaflets. Valves appear to be structurally normal. Left ventricular function is preserved at 60% with normal RV function. - Cardiology: Pending echo, considered R/LHC if inconclusive , discontinue bumex drip - Laxis 40 mg IV daily - Per nephrology: Start bumex drip + albumin and D5W 75 cc/hour -- Bumex drip discontinued by cardiology -- D5W has been discontinued due to resolution of hypernatremia - Chest Xray shows worsening, for which lasix 40 mg BID will be initiated - Lasix has been discontinued by Cardiology #Hypertension - Amlodipine 10 mg NG daily - Hydralazine 50 mg q 8 hours #CAD - R/L heart catheterization 08/30/2025: Left main, LAD and circumflex are patent, RCA patent, EF is 50-55% #Severe pulmonary hypertension - R/L heart catheterization 08/30/2025: RA pressure 18 mmHg, RV pressure 62/16 mmHg, pulmonary artery pressure 66/18 mmHg, capillary wedge pressure: 17 mmHg - Per cardiology: Sildenafil 20mg NG TID, originally 40 but this was lowered Respiratory # Ventilator - intubated (08/21/2025) - Extubated (09/07/2025) - On 8 L via face mask # Acute hypercapnic respiratory failure secondary to pulmonary edema # Acute COPD exacerbation - Methylprednisolone 40 mg IV, discontinued - Ipratropium medneb - Albuterol medneb - Ceftriaxone 1 g IV daily (discontinued) #Influenza A and B - Tamiflu 30 mg BID suspension, discontinued #Respiratory acidosis GI # Peptic ulcer prophylaxis -Pantoprazole 40 mg IV daily # Constipation - Lactulose 15 mL GT # Meng catheter # Possible Complicated UTI, present on admission - Ceftriaxone 1 g IV daily, discontinued Nephrology # COLE on CKD likely hemodynamically mediated/ VMN - NS 1000 cc bolus + 250 cc bolus in preparation for heart cath - NS 100cc/hr for 5 hours after procedure - Furosemide 100 mg IV after procedure, this was discontinued at the request of cardiology - Dialysis catheter placed by Dr. Bahena in right femoral region - Hemodialysis #Hyperkalemia, resolved - Per nephrology: trial of forced diuresis to enhance potassium excretion, serial chemistry panels, IV bicarbonate infusion, and avoidance of IV contrast if able, currently without urgent indication for kidney replacement therapy - Bicarbonate drip has been dc'd - Per Cardiology: Zoran . #Acute metabolic acidosis #Hypernatremia, resolved - D5W, discontinued Infectious disease # Influenza A and B Pneumonia - Tamiflu 30 mg BID suspension, discontinued # Possible Complicated UTI, present on admission - Ceftriaxone 1 g IV daily, discontinued - Cefepime (09/05-) - Vancomycin (09/07-) Hem/onc #Thrombocytopenia, resolved - Monitor Endocrine #Type 2 diabetes mellitus - SSI -Accu cheks DVT prophylaxis: SCD PUD prophylaxis: Pantoprazole 40 mg IV daily Lines -L femoral Central line 08/20/2025 - discontinued on 08/29/2025 -L internal jugular central line 08/29/2025 -Meng catheter 08/20/2025 -ET tube: 08/21/2025 Nutrition: Nepro at a rate of 30 Drips during the [facility] ventilation Versed Discontinued Fentanyl discontinued Propofol: Discontinued Nitroglycerin: Discontinued Nicardipine drip: Discontinued Bicarbonate drip: Discontinued Patient was extubated today. We will continue closely monitor for any signs of deterioration or respiratory distress. Both the patient and her daughter have be counseled on the possibility of re-intubation should any of the above be observed. Patient signals that she understands and her daughter states clear understanding. Critical care time 87 minutes excluding procedure and including cpap trial Code status discussed greater than 20 minutes: Full CODE STATUS. Daughter, Susy, was updated of her mother's condition at bedside. Plan discussed with Dr. Lopez Plan discussed with: Patient, Daughter, Other (Nurse (Taty)) My Orders My Orders Orders - SALLY MINOR Procedure Category Date Status Time Abg W/ Co-Ox RT 09/07/25 Logged 04:00 Chest Xray 1 View XY 09/07/25 Resulted 04:00 Respiratory Misc. RT 09/07/25 Transmitted Order 07:47 Dietary Evaluation Review Comments: Nutrition Recommendation: 1) EN Nepro Carbsteady @ 30ml/hr x 24hr (goal) along with Pro-stat 1 pk BID. Water flush 50ml Q6H if allowed, adjust PRN. TF at goal volume along with propofol & Pro-stat provide 1777 kcal (100%), 89 gm protein (83%), and 723 ml free water(including flush). 2) TPN if NPO >7 days 3) Monitor NPO status, lab values, weight trend, and I/O Expected Outcomes/Goals: Intake to meet >75% estimated needs Lab values to improve FU 2-3 days Visit Coding STANDARD RES Billing Provider: PATRICIA LOPEZ MD Date of Service if different f: Sep 07, 2025 Common Visit Codes: 68557-UDDISGYG CARE 30-74 MIN, 52432-[id number] CARE-EACH +30MIN SALLY MINOR Sep 07, 2025 10:15 PATRICIA LOPEZ MD Sep 08, 2025 11:04
[2025-09-07 11:50] LABS: Base Excess -0.9 mmol/L (-2.0-3.0)
--- NOTE | 2025-09-07 14:21 | DVHPN2 ---
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 HYPERKALEMIA COPD HYPERLIPIDEMIA SIGN SX COMPLEX OF NOW WITH SOB CHEST PAIN RENAL FAILURE HYPERKALEMIA RESP FAILURE REQUIRING INTUBATION vital signs Vital Sign Date Time Temp Pulse Resp B/P (MAP) Pulse Ox O2 Delivery O2 Flow Rate FiO2 09/07/25 14:09 97.7 96 25 172/76 (108) 97 207.9 09/07/25 14:00 30 09/07/25 14:00 Mechanical Ventilator+ Total Intake and Output 09/06/25 09/06/25 09/07/25 15:00 23:00 07:00 Intake Total 64.099 ml 349.064 ml 459.024 ml Output Total 50 ml 150 ml Balance 64.099 ml 299.064 ml 309.024 ml medications Current Medications Medications Dose Ordered Sig/Adri Route Start Time Stop Time Status Last Admin Dose Admin Albuterol 2.5 mg Q4HPRN PRN NEB 08/20/25 23:15 09/07/25 07:00 2.5 MG Ipratropium [place] 0.5 mg Q4HPRN PRN NEB 08/20/25 23:15 09/07/25 07:00 0.5 MG Multivit/Ca Carb/ B Cmplx/FA/Prenat 1 tab DAILY PO 08/21/25 10:00 09/06/25 15:46 1 TAB Diagnostic Test (Pha) 1 strip ACHS 08/21/25 07:00 09/07/25 10:49 1 STRIP Insulin Human Regular ACHS SC 08/21/25 07:00 09/02/25 21:37 2 UNITS Dextrose 50 ml UD PRN IV 08/20/25 23:15 Sodium Chloride 10 ml Q8HR IV 08/21/25 06:00 09/07/25 13:00 10 ML Docusate Sodium 100 mg BIDPRN PRN PO 08/20/25 23:15 Acetaminophen 650 mg Q6HP PRN PO 08/20/25 23:15 Nitroglycerin 0.4 mg Q5MINP PRN SL 08/20/25 23:15 Hold Midazolam HCl 100 ml @ 1 mls/hr Q24H IV 08/21/25 01:45 09/02/25 01:07 2 MLS/HR Pantoprazole Sodium 40 mg DAILY IV 08/22/25 10:00 09/07/25 10:49 40 MG Sildenafil Citrate 20 mg TID@08,14,20 NG 08/30/25 20:00 09/06/25 22:40 20 MG Fentanyl Citrate 250 ml @ 2.5 mls/hr Q24H IV 08/31/25 21:15 09/03/25 01:06 5 MLS/HR Amlodipine Besylate 10 mg DAILY PO 09/01/25 10:45 09/06/25 15:46 10 MG Enteral Nutritional Formula 1,000 ml 30ML/HR GT 09/02/25 18:45 09/05/25 22:43 1,000 ML Amino Acid Protein 30 ml Q6HR GT 09/03/25 00:00 09/06/25 22:42 30 ML Norepinephrine Bitartrate 250 ml @ 3.75 mls/hr Q24H IV 09/05/25 08:00 Hydralazine HCl 50 mg Q8HR PO 09/05/25 22:00 09/07/25 07:09 50 MG Cefepime HCl 50 ml @ 12.5 mls/hr DAILY IV 09/06/25 10:00 09/07/25 10:49 12.5 MLS/HR laboratory and microbiology Laboratory Tests 09/07/25 03:47 Test 09/07/25 03:47 Range/Units Serum Glucose 98 74-106 mg/dL Problem List ORGANIC HEART DISEASE CAD HFrEF HTN 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 HYPERKALEMIA COPD HYPERLIPIDEMIA SIGN SX COMPLEX OF NOW WITH SOB CHEST PAIN RENAL FAILURE HYPERKALEMIA RESP FAILURE REQUIRING INTUBATION Assessment/Plan CORRECT HYPERKALEMIA CONSIDER ECHO IF INCONCLUSIVE CONSIDER L/RHC BNP 370 ABX DC BUMEX START IVF AT 100 CC/HR ADD LOKELMA K+ CORRECTED REPEAT BNP WILL PROCEED WITH L/RHC ON FRIDAY POSITIVE FOR INFLUENZA A AND B POSITIVE START WEANING PT CON IV FLUID L/RHC NL CORONARIES EF >50% LVEDP 17mmHg RHC RA 15-27mmHg RV 62/17 PA`66/ 18 PCWP 17 SEVERE PUL HYPERTENSION START REVATIO 20 MG TID HEMODIALYSIS IN AM CHEST CXR STILL WITH INFILTRATIVE PROCESS START WEAN SEDATION WITH HD SIGNIFICANT IMPROVEMENT IN LUNG EFFUSION AND INFILTRATE STOP SEDATION WEAN PT OFF VENT OTHERWISE CONSIDER TRACH CHEST CXR APPEARS TO HAVE IMPROVED SIGNIFICANTLY COMPARED TO 08/29/25 LAST RIGHT SIDED EFFUSION SIGNIFICANT CLEARING OF INTERSTITIAL INFILTRATE OFF SEDATION Dietary Evaluation Review Comments: Nutrition Recommendation: 1) EN Nepro Carbsteady @ 30ml/hr x 24hr (goal) along with Pro-stat 1 pk BID. Water flush 50ml Q6H if allowed, adjust PRN. TF at goal volume along with propofol & Pro-stat provide 1777 kcal (100%), 89 gm protein (83%), and 723 ml free water(including flush). 2) TPN if NPO >7 days 3) Monitor NPO status, lab values, weight trend, and I/O Expected Outcomes/Goals: Intake to meet >75% estimated needs Lab values to improve FU 2-3 days Plan discussed with: Other Critical Care Time(min): 35 RAMIN GARCIA MD Sep 07, 2025 14:21
[2025-09-07] MEDS ORDERED: VANCOMYCIN PER PHARMACY 0 MG IV SCH (17:00)
[2025-09-07] MEDS ORDERED: VANCOMYCIN 1GM/250ML KIT 250 ML IV ONE (17:00)
[2025-09-07] MEDS: VANCOMYCIN 1.5GM/250ML 250 ML IV ONE (17:23)
--- NOTE | 2025-09-07 18:50 | DVHPN2 ---
Progress Note - Dictate Date Seen: Sep 07, 2025 Has the PT tested + for MRSA If YES, has PT been informed?: No Medical Necessity Reason Pt with a Central, PICC or Fol: Yes The following are medically ne: Central Line, Meng Catheter Reason for meng catheter: Strict I&O Subjective Patient seen earlier this morning. Urine volumes remain oliguric vital signs Vital Sign Date Time Temp Pulse Resp B/P (MAP) Pulse Ox O2 Delivery O2 Flow Rate FiO2 09/07/25 18:24 98.2 101 25 138/54 (82) 97 208.8 09/07/25 18:00 Cool Aerosol 8 35 35 Total Intake and Output 09/06/25 09/06/25 09/07/25 15:00 23:00 07:00 Intake Total 64.099 ml 349.064 ml 459.024 ml Output Total 3000 ml 50 ml 150 ml Balance -2935.901 ml 299.064 ml 309.024 ml medications Current Medications Medications Dose Ordered Sig/Adri Route Start Time Stop Time Status Last Admin Dose Admin Albuterol 2.5 mg Q4HPRN PRN NEB 08/20/25 23:15 09/07/25 07:00 2.5 MG Ipratropium [place] 0.5 mg Q4HPRN PRN NEB 08/20/25 23:15 09/07/25 07:00 0.5 MG Multivit/Ca Carb/ B Cmplx/FA/Prenat 1 tab DAILY PO 08/21/25 10:00 09/06/25 15:46 1 TAB Diagnostic Test (Pha) 1 strip ACHS 08/21/25 07:00 09/07/25 16:34 1 STRIP Insulin Human Regular ACHS SC 08/21/25 07:00 09/02/25 21:37 2 UNITS Dextrose 50 ml UD PRN IV 08/20/25 23:15 Sodium Chloride 10 ml Q8HR IV 08/21/25 06:00 09/07/25 13:00 10 ML Docusate Sodium 100 mg BIDPRN PRN PO 08/20/25 23:15 Acetaminophen 650 mg Q6HP PRN PO 08/20/25 23:15 Nitroglycerin 0.4 mg Q5MINP PRN SL 08/20/25 23:15 Hold Pantoprazole Sodium 40 mg DAILY IV 08/22/25 10:00 09/07/25 10:49 40 MG Sildenafil Citrate 20 mg TID@08,14,20 NG 08/30/25 20:00 09/07/25 16:34 20 MG Amlodipine Besylate 10 mg DAILY PO 09/01/25 10:45 09/07/25 16:34 10 MG Enteral Nutritional Formula 1,000 ml 30ML/HR GT 09/02/25 18:45 09/05/25 22:43 1,000 ML Amino Acid Protein 30 ml Q6HR GT 09/03/25 00:00 09/07/25 17:17 30 ML Hydralazine HCl 50 mg Q8HR PO 09/05/25 22:00 09/07/25 17:17 50 MG Cefepime HCl 50 ml @ 12.5 mls/hr DAILY IV 09/06/25 10:00 09/07/25 10:49 12.5 MLS/HR Vancomycin HCl 0 ml @ 0 mls/hr PER PHARMACY IV 09/07/25 17:00 objective Gen: nad, intubated heent: nc/at, mmm lungs: cta anteriorly cvs: no rub abd: soft, bowel sounds audible ext: Trace edema laboratory and microbiology Laboratory Tests 09/07/25 03:47 Test 09/07/25 03:47 Range/Units Serum Glucose 98 74-106 mg/dL Assessment/Plan IMP: 1) Hemodynamically mediated acute kidney injury and vasomotor nephropathy/ ATN requiring kidney replacement therapy 2) chronic kidney disease stage IIIB possibly secondary to underlying diabetic kidney disease 3) acute hypoxemic respiratory failure 4) working diagnosis of possible influenza pneumonia 5) hyperkalemia REC: - tentatively for dialysis September 08. - ultrafiltration as tolerated Dietary Evaluation Review Comments: Nutrition Recommendation: 1) EN Nepro Carbsteady @ 30ml/hr x 24hr (goal) along with Pro-stat 1 pk BID. Water flush 50ml Q6H if allowed, adjust PRN. TF at goal volume along with propofol & Pro-stat provide 1777 kcal (100%), 89 gm protein (83%), and 723 ml free water(including flush). 2) TPN if NPO >7 days 3) Monitor NPO status, lab values, weight trend, and I/O Expected Outcomes/Goals: Intake to meet >75% estimated needs Lab values to improve FU 2-3 days Plan discussed with: JOSEPHINE Jackson MD Sep 07, 2025 18:50
[2025-09-08] VITALS (90 sets, daily range): BP systolic 107–186; BP diastolic 52–97; PULSE 82–111; RESP 1–30; TEMP 98.1–99; O2SAT 78–100
[2025-09-08] MEDS: LABETALOL HCL 20 MG/4 ML VL IV ONE ×2 (03:04→12:15)
[2025-09-08 03:17] LABS: Hematocrit 40.8 % (36.0-46.0); Hemoglobin 11.5 g/dL (12.2-16.2); Mean Corpuscular Hemoglobin 18.8 pg (28.0-32.0); Mean Corpuscular Volume 66.6 fL (80.0-100.0); Nucleated Red Blood Cells % 0.0 %
[2025-09-08 03:22] LABS: Anion Gap 12 (5-15); Carbon Dioxide 28 mmol/L (20-31); Chloride 103 mmol/L (98-107); Sodium 143 mmol/L (136-145)
[2025-09-08 03:23] LABS: Calcium 9.0 mg/dL (8.7-10.4)
[2025-09-08 03:28] LABS: BUN/Creatinine Ratio 9.7 (10.0-20.0); Magnesium 2.2 mg/dL (1.6-2.6)
[2025-09-08 03:29] LABS: Blood Urea Nitrogen 58 mg/dL (9-23); Glucose 114 mg/dL (74-106); Potassium 3.3 mmol/L (3.5-5.1)
--- NOTE | 2025-09-08 05:53 | DVH ---
CHEST RADIOGRAPH INDICATION: Eval pleural effusion TECHNIQUE: Single frontal view of the chest was obtained COMPARISON: XY CHEST XRAY 1 VIEW on DOS: 09/07/25. FINDINGS: Lines and Tubes: There is a left central venous catheter with its tip terminating in the superior vena cava. The enteric tube courses below the left hemidiaphragm and the tip extends outside the field of view. Lungs: Patchy bilateral consolidation. Pleura: Bilateral pleural effusions. No pneumothorax. Cardiomediastinal contours: Cardiomegaly. Bones: No acute osseous abnormality. IMPRESSION: 1. No significant change compared to prior exam.
[2025-09-08] MEDS: POTASSIUM EFFERVESENT TAB 25 MEQ NG ONE (06:14)
[2025-09-08 07:52] LABS: Base Excess 0.6 mmol/L (-2.0-3.0)
--- NOTE | 2025-09-08 09:45 | DVHPNRES ---
Progress Note Date Seen: Sep 08, 2025 Resident Creating Document: SALLY MINOR RESIDENT Has the PT tested + for MRSA If YES, has PT been informed?: No Medical Necessity Reason Pt with a Central, PICC or Fol: Yes The following are medically ne: Central Line, Meng Catheter Reason for meng catheter: Strict I&O Subjective Review of Systems Ms. Marin is a 75-year-old female with prior medical history of CHF, COPD with home oxygen, gout, anxiety, diabetes mellitus, hyperlipidemia, hypertension, and PAD, who to [facility] with chief complaint of shortness of breath and back and midsternal non-radiating chest pain. At time of this evaluation the patient is intubated and sedated, history was taken from her daughter Susy at bedside and from medical record. Per her daughter, patient has been complaining of progressively worsening shortness of breath for the last 2 weeks associated with general malaise and orthopnea, describing very wet coughing sounds when her mother lays flat. She states that her mother began complaining of worsening shortness of breath associated with non-radiating midsternal chest pain which prompted her to call EMS. Per record, on seen she was saturating 74%, she was placed on CPAP with inspiration increasing to 88% on route to the emergency department. On evaluation in the ED, is afebrile, slightly hypertensive, and tachypneic saturating 81% which she was placed on BiPAP. Initial labs significant for leukocytosis of 11.3, with elevated hematocrit, and thrombocytopenia, Hyperkalemia, creatinine 4.09, BUN 46, and ABG significant for respiratory acidosis, troponins are negative, BNP 2515.41.Patient is influenza A and B positive. Chest x-ray shows moderate to severe pulmonary edema. Patient further deteriorated requiring intubation for respiratory distress. She was started on IV Lasix, IV methylprednisolone, hyperkalemia protocol, bicarbonate drip, and nitroglycerin drip. On my initial evaluation in the ED, the patient is sedated, intubated, and mechanically ventilated, currently not on pressors. Prior Medical history: CHF, COPD, gout, anxiety, type 2 diabetes mellitus, hyperlipidemia, hypertension, PAD, pulmonary hypertension Previous surgical history: Left leg stenting for PAD Allergies: Denies Social history: Daughter refers the patient smokes cigarettes with cessation approximately 20 years ago Home medications: Allopurinol, insulin, gabapentin, simvastatin, tadalafil 09/08/2025: Patient seen in the ICU. She was extubated yesterday (09/07/2025). No overnight events to report, per nurse, blood pressure has been elevated. She is afebrile, normocarrdic, with elevated BP. WBCs continue to increase. She is tolerating on supplemental O2 via NC between 2-5 L. Patient will have dialysis today. Consult to IR for placement of tunneled catheter for has been placed. 09/07/2025: Patient seen in the ICU. She is intubated, mechanically ventilated, no longer on sedation. Per nurse, no overnight events to report. She is afebrile, normocardic, with stable BP. Increased in WBCs today. CPAP trial today was successful. Patient was extubated this afternoon. We will continue to monitor. 09/06/2025; Patient seen in the ICU. She is intubated, on mechanical ventilation, no longer sedated, not on pressors. Per nurse, no adverse events over night to report. She is afebrile, normocardic, with stable BP. Labs show downtrending WBCs. Patient underwent dialysis today with 3L pulled. Patient was placed on CPAP after dialysis, how she failed CPAP trial. We will try one more time tomorrow. Possibility of tracheostomy has been discussed with her daughter. 09/05/2025: Patient seen in the ICU. She is intubated, on mechanical ventilation, no longer sedated, not on pressors. Per her nurse, her blood pressure has been elevated. She is afebrile, normocardic, with stable BP. Labs show uptrending WBCs. UA has been ordered and cefepime has been started. Patient was placed on pressure support today and tolerated approximately 4 hours. Tomorrow the patient will have dialysis in the morning with a CPAP trial. If successful, possible extubation. Objective vital signs Vital Sign Date Time Temp Pulse Resp B/P (MAP) Pulse Ox O2 Delivery O2 Flow Rate FiO2 09/08/25 09:07 98.6 93 20 142/63 (89) 93 209.5 09/08/25 08:03 Nasal Cannula* 2 28 Total Intake and Output 09/07/25 09/07/25 09/08/25 15:00 23:00 07:00 Intake Total 59.023 ml 450 ml 300 ml Output Total 150 ml 300 ml Balance 59.023 ml 300 ml 0 ml medications Current Medications Medications Dose Ordered Sig/Adri Route Start Time Stop Time Status Last Admin Dose Admin Albuterol 2.5 mg Q4HPRN PRN NEB 08/20/25 23:15 09/08/25 07:58 2.5 MG Ipratropium [place] 0.5 mg Q4HPRN PRN NEB 08/20/25 23:15 09/08/25 07:58 0.5 MG Multivit/Ca Carb/ B Cmplx/FA/Prenat 1 tab DAILY PO 08/21/25 10:00 09/06/25 15:46 1 TAB Diagnostic Test (Pha) 1 strip ACHS 08/21/25 07:00 09/08/25 06:15 1 STRIP Insulin Human Regular ACHS SC 08/21/25 07:00 09/08/25 06:22 2 UNITS Dextrose 50 ml UD PRN IV 08/20/25 23:15 Sodium Chloride 10 ml Q8HR IV 08/21/25 06:00 09/08/25 06:15 10 ML Docusate Sodium 100 mg BIDPRN PRN PO 08/20/25 23:15 Acetaminophen 650 mg Q6HP PRN PO 08/20/25 23:15 Nitroglycerin 0.4 mg Q5MINP PRN SL 08/20/25 23:15 Hold Pantoprazole Sodium 40 mg DAILY IV 08/22/25 10:00 09/07/25 10:49 40 MG Sildenafil Citrate 20 mg TID@08,14,20 NG 08/30/25 20:00 09/07/25 19:43 20 MG Amlodipine Besylate 10 mg DAILY PO 09/01/25 10:45 09/07/25 16:34 10 MG Enteral Nutritional Formula 1,000 ml 30ML/HR GT 09/02/25 18:45 09/05/25 22:43 1,000 ML Amino Acid Protein 30 ml Q6HR GT 09/03/25 00:00 09/08/25 06:15 30 ML Hydralazine HCl 50 mg Q8HR PO 09/05/25 22:00 09/08/25 06:14 50 MG Cefepime HCl 50 ml @ 12.5 mls/hr DAILY IV 09/06/25 10:00 09/07/25 10:49 12.5 MLS/HR Vancomycin HCl 0 ml @ 0 mls/hr PER PHARMACY IV 09/07/25 17:00 Examination General: Patient is AOx4, follows commands, without focal deficits HEENT: Normocephalic, atraumatic, strabismus of the right eye, pin point pupils reactive, no EOM, pink conjunctiva, pink moist mucous membrane, nasogastric tube in place Respiratory/pulmonary: Bilateral chest expansion, improved breath sounds bilaterally Cardiovascular: Normal RRR Abdomen: Obese, Abdomen nondistended, normal bowel sounds, soft, no grimacing is observed on palpation, no palpable masses. Extremities: No deformities, skin of bilateral lower extremities are extremely dry, pulses 2+ bilateral lower extremities, presence of Frank catheter in right groin region, will squeeze hands when prompted to Skin: No rashes or pruritus, there is no sacral edema present at this time. Neurological: Follows commands, without focal deficits laboratory and microbiology Laboratory Tests 09/08/25 02:51 Test 09/08/25 02:51 Range/Units Serum Glucose 114 H 74-106 mg/dL Microbiology Date/Time Source Procedure Growth Status 09/06/25 04:10 Blood Blood Culture - Preliminary NO GROWTH AFTER 48 HOURS OF INCUBATION. Resulted 08/22/25 12:52 Urine - Meng [place] Urine Culture - Final Complete 08/22/25 08:06 Nose MRSA Screen - Final Complete Problem List/Assessment/Plan Problem List/Assessment/Plan Neurology # Sedated - Versed Discontinued - Propofol: Discontinued - Fentanyl discontinued Cardiovascular # Acute on chronic HFrEF # Pulmonary Edema - BNP 2515.41 --> 370 - Chest xray 08/20/2025: Moderate to severe pulmonary edema - Chest xray 08/21/2025: Cardiomegaly with pulmonary venous congestion and edema - Echocardiogram 01/14/2022: EF > 60%, Limited echo windows, mild TR, MR - Echocardiogram 10/22/2024: Technically good study sinus rhythm. Concentric LVH with left atrial enlargement. Mild aortic sclerosis. Mild thickening of the anterior and posterior mitral leaflets. Valves appear to be structurally normal. Left ventricular function is preserved at 60% with normal RV function. - Cardiology: Pending echo, considered R/LHC if inconclusive , discontinue bumex drip - Laxis 40 mg IV daily - Per nephrology: Start bumex drip + albumin and D5W 75 cc/hour -- Bumex drip discontinued by cardiology -- D5W has been discontinued due to resolution of hypernatremia - Chest Xray shows worsening, for which lasix 40 mg BID will be initiated - Lasix has been discontinued by Cardiology #Hypertension - Amlodipine 10 mg NG daily - Hydralazine 50 mg q 8 hours #CAD - R/L heart catheterization 08/30/2025: Left main, LAD and circumflex are patent, RCA patent, EF is 50-55% #Severe pulmonary hypertension - R/L heart catheterization 08/30/2025: RA pressure 18 mmHg, RV pressure 62/16 mmHg, pulmonary artery pressure 66/18 mmHg, capillary wedge pressure: 17 mmHg - Per cardiology: Sildenafil 20mg NG TID, originally 40 but this was lowered Respiratory # Ventilator - intubated (08/21/2025) - Extubated (09/07/2025) - On 8 L via face mask # Acute hypercapnic respiratory failure secondary to pulmonary edema # Acute COPD exacerbation - Methylprednisolone 40 mg IV, discontinued - Ipratropium medneb - Albuterol medneb - Ceftriaxone 1 g IV daily (discontinued) #Influenza A and B - Tamiflu 30 mg BID suspension, discontinued #Respiratory acidosis GI # Peptic ulcer prophylaxis -Pantoprazole 40 mg IV daily # Constipation - Lactulose 15 mL GT # Meng catheter # Possible Complicated UTI, present on admission - Ceftriaxone 1 g IV daily, discontinued Nephrology # COLE on CKD likely hemodynamically mediated/ VMN - NS 1000 cc bolus + 250 cc bolus in preparation for heart cath - NS 100cc/hr for 5 hours after procedure - Furosemide 100 mg IV after procedure, this was discontinued at the request of cardiology - Dialysis catheter placed by Dr. Bahena in right femoral region - Hemodialysis #Hyperkalemia, resolved - Per nephrology: trial of forced diuresis to enhance potassium excretion, serial chemistry panels, IV bicarbonate infusion, and avoidance of IV contrast if able, currently without urgent indication for kidney replacement therapy - Bicarbonate drip has been dc'd - Per Cardiology: Zoran . #Acute metabolic acidosis #Hypernatremia, resolved - D5W, discontinued Infectious disease # Influenza A and B Pneumonia - Tamiflu 30 mg BID suspension, discontinued # Possible Complicated UTI, present on admission - Ceftriaxone 1 g IV daily, discontinued - Cefepime (09/05-) - Vancomycin (09/07-) Hem/onc #Thrombocytopenia, resolved - Monitor Endocrine #Type 2 diabetes mellitus - SSI -Accu cheks DVT prophylaxis: SCD PUD prophylaxis: Pantoprazole 40 mg IV daily Lines -L femoral Central line 08/20/2025 - discontinued on 08/29/2025 -L internal jugular central line 08/29/2025 09/08/2025 -Meng catheter 08/20/2025 -ET tube: 08/21/2025 (extubated 09/07/2025) - Mid line: 09/08/2025 Nutrition: Nepro at a rate of [facility] Versed Discontinued Fentanyl discontinued Propofol: Discontinued Nitroglycerin: Discontinued Nicardipine drip: Discontinued Bicarbonate drip: Discontinued Patient was extubated today. We will continue closely monitor for any signs of deterioration or respiratory distress. Both the patient and her daughter have be counseled on the possibility of re-intubation should any of the above be observed. Patient signals that she understands and her daughter states clear understanding. Critical care time 49 minutes excluding procedure. Code status discussed greater than 20 minutes: Full CODE STATUS. Daughter, Susy, was updated of her mother's condition at bedside. Plan discussed with Dr. Lopez Plan discussed with: Patient, Daughter, Other (Nurse (Taty)) My Orders My Orders Orders - SALLY MINOR RESIDENT Procedure Category Date Status Time Abg W/ Co-Ox RT 09/07/25 Logged 11:40 Extubate CHASTITY 09/07/25 In Process 14:11 Vancomycin Per PHA 09/07/25 In Process Pharmacy 17:00 Chest Xray 1 View XY 09/08/25 Resulted 04:00 Abg W/ Co-Ox RT 09/08/25 Logged 07:14 Dietary Evaluation Review Comments: Nutrition Recommendation: 1) EN Nepro Carbsteady @ 30ml/hr x 24hr (goal) along with Pro-stat 1 pk BID. Water flush 50ml Q6H if allowed, adjust PRN. TF at goal volume along with propofol & Pro-stat provide 1777 kcal (100%), 89 gm protein (83%), and 723 ml free water(including flush). 2) TPN if NPO >7 days 3) Monitor NPO status, lab values, weight trend, and I/O Expected Outcomes/Goals: Intake to meet >75% estimated needs Lab values to improve FU 2-3 days Visit Coding STANDARD RES Billing Provider: PATRICIA LOPEZ MD Date of Service if different f: Sep 08, 2025 Common Visit Codes: 32964-[id number] CARE 30-74 MIN SALLY MINOR RESIDENT Sep 08, 2025 09:45 PATRICIA LOPEZ MD Sep 10, 2025 11:47
[2025-09-08] MEDS: ACETAMINOPHEN 325 MG TAB PO PRN (12:16)
--- NOTE | 2025-09-08 13:16 | DVHPN2 ---
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 HYPERKALEMIA COPD HYPERLIPIDEMIA SIGN SX COMPLEX OF NOW WITH SOB CHEST PAIN RENAL FAILURE HYPERKALEMIA RESP FAILURE REQUIRING INTUBATION vital signs Vital Sign Date Time Temp Pulse Resp B/P (MAP) Pulse Ox O2 Delivery O2 Flow Rate FiO2 09/08/25 12:22 98.8 102 22 175/77 (109) 89 209.8 09/08/25 12:00 Nasal Cannula* 2 28 Total Intake and Output 09/07/25 09/07/25 09/08/25 14:59 22:59 06:59 Intake Total 59.023 ml 450 ml 300 ml Output Total 150 ml 300 ml Balance 59.023 ml 300 ml 0 ml medications Current Medications Medications Dose Ordered Sig/Adri Route Start Time Stop Time Status Last Admin Dose Admin Albuterol 2.5 mg Q4HPRN PRN NEB 08/20/25 23:15 09/08/25 07:58 2.5 MG Ipratropium [place] 0.5 mg Q4HPRN PRN NEB 08/20/25 23:15 09/08/25 07:58 0.5 MG Multivit/Ca Carb/ B Cmplx/FA/Prenat 1 tab DAILY PO 08/21/25 10:00 09/06/25 15:46 1 TAB Diagnostic Test (Pha) 1 strip ACHS 08/21/25 07:00 09/08/25 11:43 1 STRIP Insulin Human Regular ACHS SC 08/21/25 07:00 09/08/25 06:22 2 UNITS Dextrose 50 ml UD PRN IV 08/20/25 23:15 Sodium Chloride 10 ml Q8HR IV 08/21/25 06:00 09/08/25 06:15 10 ML Docusate Sodium 100 mg BIDPRN PRN PO 08/20/25 23:15 Acetaminophen 650 mg Q6HP PRN PO 08/20/25 23:15 09/08/25 12:16 650 MG Nitroglycerin 0.4 mg Q5MINP PRN SL 08/20/25 23:15 Hold Pantoprazole Sodium 40 mg DAILY IV 08/22/25 10:00 09/07/25 10:49 40 MG Sildenafil Citrate 20 mg TID@08,14,20 NG 08/30/25 20:00 09/07/25 19:43 20 MG Amlodipine Besylate 10 mg DAILY PO 09/01/25 10:45 09/07/25 16:34 10 MG Enteral Nutritional Formula 1,000 ml 30ML/HR GT 09/02/25 18:45 09/08/25 11:48 1,000 ML Amino Acid Protein 30 ml Q6HR GT 09/03/25 00:00 09/08/25 11:46 30 ML Hydralazine HCl 50 mg Q8HR PO 09/05/25 22:00 09/08/25 06:14 50 MG Cefepime HCl 50 ml @ 12.5 mls/hr DAILY IV 09/06/25 10:00 09/07/25 10:49 12.5 MLS/HR Vancomycin HCl 0 ml @ 0 mls/hr PER PHARMACY IV 09/07/25 17:00 laboratory and microbiology Laboratory Tests 09/08/25 02:51 Test 09/08/25 02:51 Range/Units Serum Glucose 114 H 74-106 mg/dL Problem List ORGANIC HEART DISEASE CAD HFrEF HTN 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 HYPERKALEMIA COPD HYPERLIPIDEMIA SIGN SX COMPLEX OF NOW WITH SOB CHEST PAIN RENAL FAILURE HYPERKALEMIA RESP FAILURE REQUIRING INTUBATION Assessment/Plan CORRECT HYPERKALEMIA CONSIDER ECHO IF INCONCLUSIVE CONSIDER L/RHC BNP 370 ABX DC BUMEX START IVF AT 100 CC/HR ADD LOKELMA K+ CORRECTED REPEAT BNP WILL PROCEED WITH L/RHC ON FRIDAY POSITIVE FOR INFLUENZA A AND B POSITIVE START WEANING PT CON IV FLUID L/RHC NL CORONARIES EF >50% LVEDP 17mmHg RHC RA 15-27mmHg RV 62/17 PA`66/ 18 PCWP 17 SEVERE PUL HYPERTENSION START REVATIO 20 MG TID HEMODIALYSIS IN AM CHEST CXR STILL WITH INFILTRATIVE PROCESS START WEAN SEDATION WITH HD SIGNIFICANT IMPROVEMENT IN LUNG EFFUSION AND INFILTRATE STOP SEDATION WEAN PT OFF VENT OTHERWISE CONSIDER TRACH CHEST CXR APPEARS TO HAVE IMPROVED SIGNIFICANTLY COMPARED TO 08/29/25 LAST RIGHT SIDED EFFUSION SIGNIFICANT CLEARING OF INTERSTITIAL INFILTRATE OFF SEDATION EXTUBATED Dietary Evaluation Review Comments: Nutrition Recommendation: 1) EN Nepro Carbsteady @ 30ml/hr x 24hr (goal) along with Pro-stat 1 pk BID. Water flush 50ml Q6H if allowed, adjust PRN. TF at goal volume along with propofol & Pro-stat provide 1777 kcal (100%), 89 gm protein (83%), and 723 ml free water(including flush). 2) TPN if NPO >7 days 3) Monitor NPO status, lab values, weight trend, and I/O Expected Outcomes/Goals: Intake to meet >75% estimated needs Lab values to improve FU 2-3 days Plan discussed with: Patient Critical Care Time(min): 35 RAMIN GARCIA MD Sep 08, 2025 13:16
--- NOTE | 2025-09-08 15:33 | DVHPN2 ---
Progress Note - Dictate Date Seen: Sep 08, 2025 Has the PT tested + for MRSA If YES, has PT been informed?: No Medical Necessity Reason Pt with a Central, PICC or Fol: Yes The following are medically ne: Central Line, Meng Catheter Reason for meng catheter: Strict I&O Subjective Patient seen earlier this morning, she was responsive and communicative. She denied feeling short of breath. vital signs Vital Sign Date Time Temp Pulse Resp B/P (MAP) Pulse Ox O2 Delivery O2 Flow Rate FiO2 09/08/25 15:07 98.1 107 24 175/91 (119) 90 208.6 09/08/25 14:00 Nasal Cannula* 3 32 Total Intake and Output 09/07/25 09/07/25 09/08/25 14:59 22:59 06:59 Intake Total 59.023 ml 450 ml 300 ml Output Total 150 ml 300 ml Balance 59.023 ml 300 ml 0 ml medications Current Medications Medications Dose Ordered Sig/Adri Route Start Time Stop Time Status Last Admin Dose Admin Albuterol 2.5 mg Q4HPRN PRN NEB 08/20/25 23:15 09/08/25 07:58 2.5 MG Ipratropium [place] 0.5 mg Q4HPRN PRN NEB 08/20/25 23:15 09/08/25 07:58 0.5 MG Multivit/Ca Carb/ B Cmplx/FA/Prenat 1 tab DAILY PO 08/21/25 10:00 09/06/25 15:46 1 TAB Diagnostic Test (Pha) 1 strip ACHS 08/21/25 07:00 09/08/25 11:43 1 STRIP Insulin Human Regular ACHS SC 08/21/25 07:00 09/08/25 06:22 2 UNITS Dextrose 50 ml UD PRN IV 08/20/25 23:15 Sodium Chloride 10 ml Q8HR IV 08/21/25 06:00 09/08/25 06:15 10 ML Docusate Sodium 100 mg BIDPRN PRN PO 08/20/25 23:15 Acetaminophen 650 mg Q6HP PRN PO 08/20/25 23:15 09/08/25 12:16 650 MG Nitroglycerin 0.4 mg Q5MINP PRN SL 08/20/25 23:15 Hold Pantoprazole Sodium 40 mg DAILY IV 08/22/25 10:00 09/07/25 10:49 40 MG Sildenafil Citrate 20 mg TID@08,14,20 NG 08/30/25 20:00 09/07/25 19:43 20 MG Amlodipine Besylate 10 mg DAILY PO 09/01/25 10:45 09/07/25 16:34 10 MG Enteral Nutritional Formula 1,000 ml 30ML/HR GT 09/02/25 18:45 09/08/25 11:48 1,000 ML Amino Acid Protein 30 ml Q6HR GT 09/03/25 00:00 09/08/25 11:46 30 ML Hydralazine HCl 50 mg Q8HR PO 09/05/25 22:00 09/08/25 06:14 50 MG Cefepime HCl 50 ml @ 12.5 mls/hr DAILY IV 09/06/25 10:00 09/07/25 10:49 12.5 MLS/HR Vancomycin HCl 0 ml @ 0 mls/hr PER PHARMACY IV 09/07/25 17:00 objective Gen: nad, awake, communicative heent: nc/at, mmm lungs: cta anteriorly cvs: no rub abd: soft, bowel sounds audible ext: Trace edema laboratory and microbiology Laboratory Tests 09/08/25 02:51 Test 09/08/25 02:51 Range/Units Serum Glucose 114 H 74-106 mg/dL Assessment/Plan IMP: 1) Hemodynamically mediated acute kidney injury and vasomotor nephropathy/ ATN requiring kidney replacement therapy 2) chronic kidney disease stage IIIB possibly secondary to underlying diabetic kidney disease 3) acute hypoxemic respiratory failure 4) working diagnosis of possible influenza pneumonia 5) hyperkalemia REC: - we will dialyze against a 4 K dialysate bath today. - UF as tolerated - volume status overall improved Dietary Evaluation Review Comments: Nutrition Recommendation: 1) EN Nepro Carbsteady @ 30ml/hr x 24hr (goal) along with Pro-stat 1 pk BID. Water flush 50ml Q6H if allowed, adjust PRN. TF at goal volume along with propofol & Pro-stat provide 1777 kcal (100%), 89 gm protein (83%), and 723 ml free water(including flush). 2) TPN if NPO >7 days 3) Monitor NPO status, lab values, weight trend, and I/O Expected Outcomes/Goals: Intake to meet >75% estimated needs Lab values to improve FU 2-3 days Plan discussed with: Other JOSEPHINE DONNELLY MD Sep 08, 2025 15:33
[2025-09-08] MEDS: VANCOMYCIN 500mg/100mL 100 ML IV ONE (20:52)
[2025-09-09] VITALS (68 sets, daily range): BP systolic 125–187; BP diastolic 54–85; PULSE 96–118; RESP 12–34; TEMP 97.8–99.2; O2SAT 90–98
[2025-09-09 03:34] LABS: Hematocrit 41.4 % (36.0-46.0); Hemoglobin 11.8 g/dL (12.2-16.2); Mean Corpuscular Hemoglobin 19.0 pg (28.0-32.0); Mean Corpuscular Volume 66.5 fL (80.0-100.0); Nucleated Red Blood Cells % 0.0 %
[2025-09-09 03:36] LABS: Anion Gap 14 (5-15); Carbon Dioxide 25 mmol/L (20-31); Chloride 101 mmol/L (98-107); Potassium 3.8 mmol/L (3.5-5.1); Sodium 140 mmol/L (136-145)
[2025-09-09 03:37] LABS: Calcium 9.1 mg/dL (8.7-10.4)
[2025-09-09 03:42] LABS: BUN/Creatinine Ratio 8.8 (10.0-20.0); Magnesium 2.2 mg/dL (1.6-2.6)
[2025-09-09 03:48] LABS: Blood Urea Nitrogen 45 mg/dL (9-23); Glucose 121 mg/dL (74-106)
[2025-09-09 04:25] LABS: Anisocytosis Moderate
[2025-09-09] MEDS ORDERED: ACETYLCYSTEINE 10 %(100MG/ML) SOL 4ML NEB ONE (08:30)
[2025-09-09] MEDS ORDERED: IPRATROPIUM BROM 0.5 MG/2.5ML INH SOL NEB SCH (10:00)
--- NOTE | 2025-09-09 10:42 | DVHPNRES ---
Progress Note Date Seen: Sep 09, 2025 Resident Creating Document: SALLY MINOR RESIDENT Has the PT tested + for MRSA If YES, has PT been informed?: No Medical Necessity Reason Pt with a Central, PICC or Fol: Yes The following are medically ne: Central Line, Meng Catheter Reason for meng catheter: Strict I&O Subjective Review of Systems Ms. Marin is a 75-year-old female with prior medical history of CHF, COPD with home oxygen, gout, anxiety, diabetes mellitus, hyperlipidemia, hypertension, and PAD, who to [facility] with chief complaint of shortness of breath and back and midsternal non-radiating chest pain. At time of this evaluation the patient is intubated and sedated, history was taken from her daughter Susy at bedside and from medical record. Per her daughter, patient has been complaining of progressively worsening shortness of breath for the last 2 weeks associated with general malaise and orthopnea, describing very wet coughing sounds when her mother lays flat. She states that her mother began complaining of worsening shortness of breath associated with non-radiating midsternal chest pain which prompted her to call EMS. Per record, on seen she was saturating 74%, she was placed on CPAP with inspiration increasing to 88% on route to the emergency department. On evaluation in the ED, is afebrile, slightly hypertensive, and tachypneic saturating 81% which she was placed on BiPAP. Initial labs significant for leukocytosis of 11.3, with elevated hematocrit, and thrombocytopenia, Hyperkalemia, creatinine 4.09, BUN 46, and ABG significant for respiratory acidosis, troponins are negative, BNP 2515.41.Patient is influenza A and B positive. Chest x-ray shows moderate to severe pulmonary edema. Patient further deteriorated requiring intubation for respiratory distress. She was started on IV Lasix, IV methylprednisolone, hyperkalemia protocol, bicarbonate drip, and nitroglycerin drip. On my initial evaluation in the ED, the patient is sedated, intubated, and mechanically ventilated, currently not on pressors. Prior Medical history: CHF, COPD, gout, anxiety, type 2 diabetes mellitus, hyperlipidemia, hypertension, PAD, pulmonary hypertension Previous surgical history: Left leg stenting for PAD Allergies: Denies Social history: Daughter refers the patient smokes cigarettes with cessation approximately 20 years ago Home medications: Allopurinol, insulin, gabapentin, simvastatin, tadalafil 09/09/2025: Patient seen in the ICU. She was extubated 09/07/2025. No overnight events to report. Per nurse, patient continues to have thick oral secretions. She is afebrile, normocardic, tends toward hypertension. WBCs are uptrending. She is tolerating on supplemental O2 via NC. She had dialysis yesterday with 3 L pulled. IR has been consulted for tunnel catheter. PT has been consulted for evaluation of PT needs. Patient will be downgraded to RONI. 09/08/2025: Patient seen in the ICU. She was extubated yesterday (09/07/2025). No overnight events to report, per nurse, blood pressure has been elevated. She is afebrile, normocarrdic, with elevated BP. WBCs continue to increase. She is tolerating on supplemental O2 via NC between 2-5 L. Patient will have dialysis today. Consult to IR for placement of tunneled catheter for has been placed. 09/07/2025: Patient seen in the ICU. She is intubated, mechanically ventilated, no longer on sedation. Per nurse, no overnight events to report. She is afebrile, normocardic, with stable BP. Increased in WBCs today. CPAP trial today was successful. Patient was extubated this afternoon. We will continue to monitor. 09/06/2025; Patient seen in the ICU. She is intubated, on mechanical ventilation, no longer sedated, not on pressors. Per nurse, no adverse events over night to report. She is afebrile, normocardic, with stable BP. Labs show downtrending WBCs. Patient underwent dialysis today with 3L pulled. Patient was placed on CPAP after dialysis, how she failed CPAP trial. We will try one more time tomorrow. Possibility of tracheostomy has been discussed with her daughter. 09/05/2025: Patient seen in the ICU. She is intubated, on mechanical ventilation, no longer sedated, not on pressors. Per her nurse, her blood pressure has been elevated. She is afebrile, normocardic, with stable BP. Labs show uptrending WBCs. UA has been ordered and cefepime has been started. Patient was placed on pressure support today and tolerated approximately 4 hours. Tomorrow the patient will have dialysis in the morning with a CPAP trial. If successful, possible extubation. Objective vital signs Vital Sign Date Time Temp Pulse Resp B/P (MAP) Pulse Ox O2 Delivery O2 Flow Rate FiO2 09/09/25 10:31 143/61 09/09/25 09:37 110 14 93 09/09/25 08:07 97.8 97.8 09/09/25 08:00 Nasal Cannula* 6 44 Total Intake and Output 09/08/25 09/08/25 09/09/25 15:00 23:00 07:00 Intake Total 383.0 ml 360 ml Output Total 3250 ml 175 ml Balance -2867.0 ml 185 ml medications Current Medications Medications Dose Ordered Sig/Adri Route Start Time Stop Time Status Last Admin Dose Admin Multivit/Ca Carb/ B Cmplx/FA/Prenat 1 tab DAILY PO 08/21/25 10:00 09/09/25 10:32 1 TAB Diagnostic Test (Pha) 1 strip ACHS 08/21/25 07:00 09/09/25 06:26 1 STRIP Insulin Human Regular ACHS SC 08/21/25 07:00 09/09/25 06:29 2 UNITS Dextrose 50 ml UD PRN IV 08/20/25 23:15 Sodium Chloride 10 ml Q8HR IV 08/21/25 06:00 09/09/25 05:16 10 ML Docusate Sodium 100 mg BIDPRN PRN PO 08/20/25 23:15 Acetaminophen 650 mg Q6HP PRN PO 08/20/25 23:15 09/08/25 12:16 650 MG Nitroglycerin 0.4 mg Q5MINP PRN SL 08/20/25 23:15 Hold Pantoprazole Sodium 40 mg DAILY IV 08/22/25 10:00 09/09/25 10:31 40 MG Sildenafil Citrate 20 mg TID@08,14,20 NG 08/30/25 20:00 09/09/25 10:31 20 MG Amlodipine Besylate 10 mg DAILY PO 09/01/25 10:45 09/09/25 10:31 10 MG Enteral Nutritional Formula 1,000 ml 30ML/HR GT 09/02/25 18:45 09/08/25 11:48 1,000 ML Amino Acid Protein 30 ml Q6HR GT 09/03/25 00:00 09/09/25 05:15 30 ML Hydralazine HCl 50 mg Q8HR PO 09/05/25 22:00 09/09/25 05:15 50 MG Cefepime HCl 50 ml @ 12.5 mls/hr DAILY IV 09/06/25 10:00 09/09/25 10:31 12.5 MLS/HR Vancomycin HCl 0 ml @ 0 mls/hr PER PHARMACY IV 09/07/25 17:00 Levalbuterol HCl 1.25 mg Q6HR NEB 09/09/25 12:00 Acetylcysteine 100 mg Q6HR NEB 09/09/25 12:00 Ipratropium [place] 0.5 mg Q6HR NEB 09/09/25 12:00 Examination General: Patient is AOx4, follows commands, without focal deficits HEENT: Normocephalic, atraumatic, strabismus of the right eye, pin point pupils reactive, no EOM, pink conjunctiva, pink moist mucous membrane, nasogastric tube in place Respiratory/pulmonary: Bilateral chest expansion, improved breath sounds bilaterally Cardiovascular: Normal RRR Abdomen: Obese, Abdomen nondistended, normal bowel sounds, soft, no grimacing is observed on palpation, no palpable masses. Extremities: No deformities, skin of bilateral lower extremities are extremely dry, pulses 2+ bilateral lower extremities, presence of Frank catheter in right groin region, will squeeze hands when prompted to Skin: No rashes or pruritus, there is no sacral edema present at this time. Neurological: Follows commands, without focal deficits laboratory and microbiology Laboratory Tests 09/09/25 03:05 Test 09/09/25 03:05 Range/Units Serum Glucose 121 H 74-106 mg/dL Microbiology Date/Time Source Procedure Growth Status 09/06/25 04:10 Blood Blood Culture - Preliminary NO GROWTH AFTER 72 HOURS OF INCUBATION. Resulted 08/22/25 12:52 Urine - Meng [place] Urine Culture - Final Complete 08/22/25 08:06 Nose MRSA Screen - Final Complete Problem List/Assessment/Plan Problem List/Assessment/Plan Neurology # Sedated - Versed Discontinued - Propofol: Discontinued - Fentanyl discontinued Cardiovascular # Acute on chronic HFrEF # Pulmonary Edema - BNP 2515.41 --> 370 - Chest xray 08/20/2025: Moderate to severe pulmonary edema - Chest xray 08/21/2025: Cardiomegaly with pulmonary venous congestion and edema - Echocardiogram 01/14/2022: EF > 60%, Limited echo windows, mild TR, MR - Echocardiogram 10/22/2024: Technically good study sinus rhythm. Concentric LVH with left atrial enlargement. Mild aortic sclerosis. Mild thickening of the anterior and posterior mitral leaflets. Valves appear to be structurally normal. Left ventricular function is preserved at 60% with normal RV function. - Cardiology: Pending echo, considered R/LHC if inconclusive , discontinue bumex drip - Laxis 40 mg IV daily - Per nephrology: Start bumex drip + albumin and D5W 75 cc/hour -- Bumex drip discontinued by cardiology -- D5W has been discontinued due to resolution of hypernatremia - Chest Xray shows worsening, for which lasix 40 mg BID will be initiated - Lasix has been discontinued by Cardiology #Hypertension - Amlodipine 10 mg NG daily - Hydralazine 50 mg q 8 hours #CAD - R/L heart catheterization 08/30/2025: Left main, LAD and circumflex are patent, RCA patent, EF is 50-55% #Severe pulmonary hypertension - R/L heart catheterization 08/30/2025: RA pressure 18 mmHg, RV pressure 62/16 mmHg, pulmonary artery pressure 66/18 mmHg, capillary wedge pressure: 17 mmHg - Per cardiology: Sildenafil 20mg NG TID, originally 40 but this was lowered Respiratory # Ventilator - intubated (08/21/2025) - Extubated (09/07/2025) - On 8 L via face mask - Ipratropium 0.2 med neb q 4 hours - Levalbuterol 1.25 mg med neb q 6 hours - Mucomyst 100 mg q 8 hours # Acute hypercapnic respiratory failure secondary to pulmonary edema # Acute COPD exacerbation - Methylprednisolone 40 mg IV, discontinued - Ipratropium medneb - Albuterol medneb - Ceftriaxone 1 g IV daily (discontinued) #Influenza A and B - Tamiflu 30 mg BID suspension, discontinued #Respiratory acidosis GI # Peptic ulcer prophylaxis -Pantoprazole 40 mg IV daily # Constipation - Lactulose 15 mL GT # Meng catheter # Possible Complicated UTI, present on admission - Ceftriaxone 1 g IV daily, discontinued Nephrology # COLE on CKD likely hemodynamically mediated/ VMN - NS 1000 cc bolus + 250 cc bolus in preparation for heart cath - NS 100cc/hr for 5 hours after procedure - Furosemide 100 mg IV after procedure, this was discontinued at the request of cardiology - Dialysis catheter placed by Dr. Bahena in right femoral region - Hemodialysis - IR has been consulted for placement of tunnel catheter #Hyperkalemia, resolved - Per nephrology: trial of forced diuresis to enhance potassium excretion, serial chemistry panels, IV bicarbonate infusion, and avoidance of IV contrast if able, currently without urgent indication for kidney replacement therapy - Bicarbonate drip has been dc'd - Per Cardiology: Zoran . #Acute metabolic acidosis #Hypernatremia, resolved - D5W, discontinued Infectious disease # Influenza A and B Pneumonia - Tamiflu 30 mg BID suspension, discontinued # Possible Complicated UTI, present on admission - Ceftriaxone 1 g IV daily, discontinued - Cefepime (09/05-) - Vancomycin (09/07-) Hem/onc #Thrombocytopenia, resolved - Monitor Endocrine #Type 2 diabetes mellitus - SSI -Accu cheks DVT prophylaxis: SCD PUD prophylaxis: Pantoprazole 40 mg IV daily Lines -L femoral Central line 08/20/2025 - discontinued on 08/29/2025 -L internal jugular central line 08/29/2025 09/08/2025 -Meng catheter 08/20/2025 -ET tube: 08/21/2025 (extubated 09/07/2025) - Mid line: 09/08/2025 Nutrition: Nepro at a rate of [facility] Versed Discontinued Fentanyl discontinued Propofol: Discontinued Nitroglycerin: Discontinued Nicardipine drip: Discontinued Bicarbonate drip: Discontinued Patient was extubated on 09/07/2025. IR has been consulted for placement of tunnel catheter. PT has been consulted for PT evaluation. Critical care time 45 minutes excluding procedure. Code status discussed greater than 20 minutes: Full CODE STATUS. Daughter, Susy, was updated of her mother's condition at bedside. Plan discussed with Dr. Martell Plan discussed with: Daughter, Other My Orders My Orders Orders - SALLY MINOR Procedure Category Date Status Time * Radiologist Consult CONS 09/08/25 Transmitted 16:30 Levalbuterol Hcl PHA 09/09/25 In Process (Xopenex Medneb) 12:00 Acetylcysteine PHA 09/09/25 In Process Inhalation 10% 12:00 Ipratropium Medneb PHA 09/09/25 In Process (Atrovent Medneb) 12:00 Pt Request For Service PT 09/09/25 Logged 10:30 Dietary Evaluation Review Comments: Nutrition Recommendation: 1) EN Nepro Carbsteady @ 30ml/hr x 24hr (goal) along with Pro-stat 1 pk BID. Water flush 50ml Q6H if allowed, adjust PRN. TF at goal volume along with propofol & Pro-stat provide 1777 kcal (100%), 89 gm protein (83%), and 723 ml free water(including flush). 2) TPN if NPO >7 days 3) Monitor NPO status, lab values, weight trend, and I/O Expected Outcomes/Goals: Intake to meet >75% estimated needs Lab values to improve FU 2-3 days Visit Coding STANDARD RES Billing Provider: RAVI MARTELL MD Date of Service if different f: Sep 09, 2025 SALLY MINOR RESIDENT Sep 09, 2025 10:41
[2025-09-09] MEDS: IPRATROPIUM BROM 0.5 MG/2.5ML INH SOL NEB SCH (11:40)
[2025-09-09] MEDS: ACETYLCYSTEINE 10 %(100MG/ML) SOL 4ML NEB SCH (11:40)
[2025-09-09] MEDS: LEVALBUTEROL HCL 1.25 MG/3 ML NEB NEB SCH (11:40)
[2025-09-09] MEDS ORDERED: ACETYLCYSTEINE 10 %(100MG/ML) SOL 4ML NEB SCH (14:00)
[2025-09-09 14:33] LABS: INR 1.16 (0.9-1.15); Partial Thromboplastin Time 30.8 SEC (24.5-34.5); Prothrombin Time 12.1 sec (9.3-11.8)
--- NOTE | 2025-09-09 15:54 | DVHPN2 ---
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 HYPERKALEMIA COPD HYPERLIPIDEMIA SIGN SX COMPLEX OF NOW WITH SOB CHEST PAIN RENAL FAILURE HYPERKALEMIA RESP FAILURE REQUIRING INTUBATION vital signs Vital Sign Date Time Temp Pulse Resp B/P (MAP) Pulse Ox O2 Delivery O2 Flow Rate FiO2 09/09/25 15:11 145/63 09/09/25 14:30 18 96 Nasal Cannula* 6 44 09/09/25 14:30 107 09/09/25 12:07 98.5 98.5 Total Intake and Output 09/08/25 09/08/25 09/09/25 15:00 23:00 07:00 Intake Total 383.0 ml 360 ml Output Total 3250 ml 175 ml Balance -2867.0 ml 185 ml medications Current Medications Medications Dose Ordered Sig/Adri Route Start Time Stop Time Status Last Admin Dose Admin Multivit/Ca Carb/ B Cmplx/FA/Prenat 1 tab DAILY PO 08/21/25 10:00 09/09/25 10:32 1 TAB Diagnostic Test (Pha) 1 strip ACHS 08/21/25 07:00 09/09/25 15:05 1 STRIP Insulin Human Regular ACHS SC 08/21/25 07:00 09/09/25 06:29 2 UNITS Dextrose 50 ml UD PRN IV 08/20/25 23:15 Sodium Chloride 10 ml Q8HR IV 08/21/25 06:00 09/09/25 15:06 10 ML Docusate Sodium 100 mg BIDPRN PRN PO 08/20/25 23:15 Acetaminophen 650 mg Q6HP PRN PO 08/20/25 23:15 09/08/25 12:16 650 MG Nitroglycerin 0.4 mg Q5MINP PRN SL 08/20/25 23:15 Hold Pantoprazole Sodium 40 mg DAILY IV 08/22/25 10:00 09/09/25 10:31 40 MG Sildenafil Citrate 20 mg TID@08,14,20 NG 08/30/25 20:00 09/09/25 15:11 20 MG Amlodipine Besylate 10 mg DAILY PO 09/01/25 10:45 09/09/25 10:31 10 MG Enteral Nutritional Formula 1,000 ml 30ML/HR GT 09/02/25 18:45 09/08/25 11:48 1,000 ML Amino Acid Protein 30 ml Q6HR GT 09/03/25 00:00 09/09/25 15:05 30 ML Hydralazine HCl 50 mg Q8HR PO 09/05/25 22:00 09/09/25 15:11 50 MG Cefepime HCl 50 ml @ 12.5 mls/hr DAILY IV 09/06/25 10:00 09/09/25 10:31 12.5 MLS/HR Vancomycin HCl 0 ml @ 0 mls/hr PER PHARMACY IV 09/07/25 17:00 Levalbuterol HCl 1.25 mg Q6HR NEB 09/09/25 12:00 09/09/25 11:40 1.25 MG Acetylcysteine 100 mg Q6HR NEB 09/09/25 12:00 09/09/25 11:40 100 MG Ipratropium [place] 0.5 mg Q6HR NEB 09/09/25 12:00 09/09/25 11:40 0.5 MG laboratory and microbiology Laboratory Tests 09/09/25 03:05 Test 09/09/25 03:05 Range/Units Serum Glucose 121 H 74-106 mg/dL Problem List ORGANIC HEART DISEASE CAD HFrEF HTN 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 HYPERKALEMIA COPD HYPERLIPIDEMIA SIGN SX COMPLEX OF NOW WITH SOB CHEST PAIN RENAL FAILURE HYPERKALEMIA RESP FAILURE REQUIRING INTUBATION Assessment/Plan CORRECT HYPERKALEMIA CONSIDER ECHO IF INCONCLUSIVE CONSIDER L/RHC BNP 370 ABX DC BUMEX START IVF AT 100 CC/HR ADD LOKELMA K+ CORRECTED REPEAT BNP WILL PROCEED WITH L/RHC ON FRIDAY POSITIVE FOR INFLUENZA A AND B POSITIVE START WEANING PT CON IV FLUID L/RHC NL CORONARIES EF >50% LVEDP 17mmHg RHC RA 15-27mmHg RV 62/17 PA`66/ 18 PCWP 17 SEVERE PUL HYPERTENSION START REVATIO 20 MG TID HEMODIALYSIS IN AM CHEST CXR STILL WITH INFILTRATIVE PROCESS START WEAN SEDATION WITH HD SIGNIFICANT IMPROVEMENT IN LUNG EFFUSION AND INFILTRATE STOP SEDATION WEAN PT OFF VENT OTHERWISE CONSIDER TRACH CHEST CXR APPEARS TO HAVE IMPROVED SIGNIFICANTLY COMPARED TO 08/29/25 LAST RIGHT SIDED EFFUSION SIGNIFICANT CLEARING OF INTERSTITIAL INFILTRATE OFF SEDATION EXTUBATED Dietary Evaluation Review Comments: Nutrition Recommendation: 1) EN Nepro Carbsteady @ 30ml/hr x 24hr (goal) along with Pro-stat 1 pk BID. Water flush 50ml Q6H if allowed, adjust PRN. TF at goal volume along with propofol & Pro-stat provide 1777 kcal (100%), 89 gm protein (83%), and 723 ml free water(including flush). 2) TPN if NPO >7 days 3) Monitor NPO status, lab values, weight trend, and I/O Expected Outcomes/Goals: Intake to meet >75% estimated needs Lab values to improve FU 2-3 days Plan discussed with: Patient Critical Care Time(min): 35 RAMIN GARCAI MD Sep 09, 2025 15:54
--- NOTE | 2025-09-09 18:18 | DVHPN2 ---
Progress Note - Dictate Date Seen: Sep 09, 2025 Has the PT tested + for MRSA If YES, has PT been informed?: No Medical Necessity Reason Pt with a Central, PICC or Fol: Yes The following are medically ne: Central Line, Meng Catheter Reason for meng catheter: Strict I&O Subjective Patient awake and alert, seen earlier this afternoon, patient's daughter at bedside. vital signs Vital Sign Date Time Temp Pulse Resp B/P (MAP) Pulse Ox O2 Delivery O2 Flow Rate FiO2 09/09/25 17:56 113 20 98 09/09/25 16:00 Nasal Cannula* 5 40 09/09/25 15:11 145/63 09/09/25 12:07 98.5 98.5 Total Intake and Output 09/08/25 09/08/25 09/09/25 15:00 23:00 07:00 Intake Total 383.0 ml 360 ml Output Total 3250 ml 175 ml Balance -2867.0 ml 185 ml medications Current Medications Medications Dose Ordered Sig/Adri Route Start Time Stop Time Status Last Admin Dose Admin Multivit/Ca Carb/ B Cmplx/FA/Prenat 1 tab DAILY PO 08/21/25 10:00 09/09/25 10:32 1 TAB Diagnostic Test (Pha) 1 strip ACHS 08/21/25 07:00 09/09/25 17:38 1 STRIP Insulin Human Regular ACHS SC 08/21/25 07:00 09/09/25 06:29 2 UNITS Dextrose 50 ml UD PRN IV 08/20/25 23:15 Sodium Chloride 10 ml Q8HR IV 08/21/25 06:00 09/09/25 15:06 10 ML Docusate Sodium 100 mg BIDPRN PRN PO 08/20/25 23:15 Acetaminophen 650 mg Q6HP PRN PO 08/20/25 23:15 09/08/25 12:16 650 MG Nitroglycerin 0.4 mg Q5MINP PRN SL 08/20/25 23:15 Hold Pantoprazole Sodium 40 mg DAILY IV 08/22/25 10:00 09/09/25 10:31 40 MG Sildenafil Citrate 20 mg TID@08,14,20 NG 08/30/25 20:00 09/09/25 15:11 20 MG Amlodipine Besylate 10 mg DAILY PO 09/01/25 10:45 09/09/25 10:31 10 MG Enteral Nutritional Formula 1,000 ml 30ML/HR GT 09/02/25 18:45 09/08/25 11:48 1,000 ML Amino Acid Protein 30 ml Q6HR GT 09/03/25 00:00 09/09/25 17:38 30 ML Hydralazine HCl 50 mg Q8HR PO 09/05/25 22:00 09/09/25 15:11 50 MG Cefepime HCl 50 ml @ 12.5 mls/hr DAILY IV 09/06/25 10:00 09/09/25 10:31 12.5 MLS/HR Vancomycin HCl 0 ml @ 0 mls/hr PER PHARMACY IV 09/07/25 17:00 Levalbuterol HCl 1.25 mg Q6HR NEB 09/09/25 12:00 09/09/25 17:46 1.25 MG Acetylcysteine 100 mg Q6HR NEB 09/09/25 12:00 09/09/25 17:46 100 MG Ipratropium [place] 0.5 mg Q6HR NEB 09/09/25 12:00 09/09/25 17:46 0.5 MG objective Gen: nad, awake, communicative heent: nc/at, mmm lungs: cta anteriorly cvs: no rub abd: soft, bowel sounds audible ext: Trace edema laboratory and microbiology Laboratory Tests 09/09/25 03:05 Test 09/09/25 03:05 Range/Units Serum Glucose 121 H 74-106 mg/dL Assessment/Plan IMP: 1) Hemodynamically mediated acute kidney injury and vasomotor nephropathy/ ATN requiring kidney replacement therapy 2) chronic kidney disease stage IIIB possibly secondary to underlying diabetic kidney disease 3) acute hypoxemic respiratory failure 4) working diagnosis of possible influenza pneumonia 5) hyperkalemia REC: - removal of femoral dialysis catheter - we will plan for temporary IJ dialysis catheter over the weekend should acute indication arise. - daily basic metabolic panel. - discussed plan of care from Nephrology perspective with ISAIAS and her daughter. Dietary Evaluation Review Comments: Nutrition Recommendation: 1) EN Nepro Carbsteady @ 30ml/hr x 24hr (goal) along with Pro-stat 1 pk BID. Water flush 50ml Q6H if allowed, adjust PRN. TF at goal volume along with propofol & Pro-stat provide 1777 kcal (100%), 89 gm protein (83%), and 723 ml free water(including flush). 2) TPN if NPO >7 days 3) Monitor NPO status, lab values, weight trend, and I/O Expected Outcomes/Goals: Intake to meet >75% estimated needs Lab values to improve FU 2-3 days Plan discussed with: Patient, Daughter, Other JOSEPHINE DONNELLY MD Sep 09, 2025 18:18
--- NOTE | 2025-09-09 23:58 | DVHPN2 ---
Subjective DOS: 09/09/2025 Patient seen and examined at bedside. S/p extubation, on supplemental oxygen Overnight events reviewed. Changes from previous H/P or p: Changes Eyes: No Pain, No Vision change, No Conjunctivae inflammation, No Eyelid inflammation, No Other, No Redness ENT: No Ear pain, No Ear discharge, No Nose pain, No Nose discharge, No Nose congestion, No Mouth pain, No Mouth swelling, No Throat pain, No Throat swelling, No Other Cardiovascular: Chest Pain; No Palpitations, No Orthopnea, No Paroxysmal Noc. Dyspnea, No Edema, No Lt Headedness, No Other Respiratory: No Cough, No Dry; Shortness of breath; No SOB with excertion, No Wheezing, No Hemoptysis, No Pleuritic Pain, No Sputum; Other (SOB at rest) Gastrointestinal: No Nausea, No Vomiting, No Abdominal Pain, No Diarrhea, No Constipation, No Melena, No Hematochezia, No Other Genitourinary: No Dysuria, No Frequency, No Incontinence, No Hematuria, No Retention; Other (Schuster catheter in place) Musculoskeletal: other (Bilateral leg discoloration); No neck pain, No shoulder pain, No arm pain, No back pain, No hand pain, No leg pain, No foot pain Skin: No Rash, No Lesions, No Jaundice, No Bruising; Other (Left foot wound) Objective Vitals Vital Signs Date Time Temp Pulse Resp B/P (MAP) Pulse Ox O2 Delivery O2 Flow Rate FiO2 09/09/25 22:01 111 23 130/54 (79) 90 09/09/25 22:00 Nasal Cannula* 6 44 09/09/25 20:01 99.2 99.2 Intake/Output Intake and Output 09/09/25 07:00 Intake Total 743.0 ml Output Total 3425 ml Balance -2682.0 ml Intake Oral 520 ml IV Total 25.0 ml Tube Feeding 198 ml Output Urine Total 425 ml Other 3000 ml # Bowel Movements 1 Exam Gen.: Patient lying in bed in no apparent distress. On supplemental oxygen. Head: Normocephalic, atraumatic. Eyes: EOMI/PERRLA. Ears: Normal hearing. Normal anatomy. Neck/trachea: Trachea midline, supple. Nose: Normal external anatomy. Mouth: Moist mucous membranes. Chest: Decreased air entry bilaterally. No wheezing or rhonchi. Cardiovascular: Positive S1, positive S2. Regular rate and rhythm. Abdomen: Positive bowel sounds in all 4 quadrants. Soft, non-tender, non- distended. : Deferred. Rectal: Deferred. Skin: Warm, dry. Intact. Extremities: 2+ radial pulses bilaterally. No lower extremity edema. Neuro: Awake, alert, oriented x3. No gross motor or sensory deficits. Cranial nerves II through XII intact. Gait not assessed. Medications Current Medications Medications Dose Ordered Sig/Adri Route Start Time Stop Time Status Last Admin Dose Admin Multivit/Ca Carb/ B Cmplx/FA/Prenat 1 tab DAILY PO 08/21/25 10:00 09/09/25 10:32 1 TAB Diagnostic Test (Pha) 1 strip ACHS 08/21/25 07:00 09/09/25 21:15 1 STRIP Insulin Human Regular ACHS SC 08/21/25 07:00 09/09/25 06:29 2 UNITS Dextrose 50 ml UD PRN IV 08/20/25 23:15 Sodium Chloride 10 ml Q8HR IV 08/21/25 06:00 09/09/25 21:15 10 ML Docusate Sodium 100 mg BIDPRN PRN PO 08/20/25 23:15 Acetaminophen 650 mg Q6HP PRN PO 08/20/25 23:15 09/09/25 19:40 650 MG Nitroglycerin 0.4 mg Q5MINP PRN SL 08/20/25 23:15 Hold Pantoprazole Sodium 40 mg DAILY IV 08/22/25 10:00 09/09/25 10:31 40 MG Sildenafil Citrate 20 mg TID@08,14,20 NG 08/30/25 20:00 09/09/25 21:32 20 MG Amlodipine Besylate 10 mg DAILY PO 09/01/25 10:45 09/09/25 10:31 10 MG Enteral Nutritional Formula 1,000 ml 30ML/HR GT 09/02/25 18:45 09/08/25 11:48 1,000 ML Amino Acid Protein 30 ml Q6HR GT 09/03/25 00:00 09/09/25 23:56 30 ML Hydralazine HCl 50 mg Q8HR PO 09/05/25 22:00 09/09/25 21:15 50 MG Cefepime HCl 50 ml @ 12.5 mls/hr DAILY IV 09/06/25 10:00 09/09/25 10:31 12.5 MLS/HR Vancomycin HCl 0 ml @ 0 mls/hr PER PHARMACY IV 09/07/25 17:00 Levalbuterol HCl 1.25 mg Q6HR NEB 09/09/25 12:00 09/09/25 17:46 1.25 MG Acetylcysteine 100 mg Q6HR NEB 09/09/25 12:00 09/09/25 17:46 100 MG Ipratropium [place] 0.5 mg Q6HR NEB 09/09/25 12:00 09/09/25 17:46 0.5 MG Laboratory Results Laboratory Tests 09/09/25 03:05 Chemistry Test 09/09/25 03:05 Calcium Level 9.1 mg/dL (8.7-10.4) Magnesium Level 2.2 mg/dL (1.6-2.6) Phosphorus Level 3.4 mg/dL (2.4-5.1) Coagulation Test 09/09/25 14:02 Prothrombin Time 12.1 sec (9.3-11.8) H Prothrombin Time INR 1.16 (0.9-1.15) H Activated Partial Thromboplast Time 30.8 SEC (24.5-34.5) Urinalysis Test 08/22/25 11:43 08/22/25 12:52 09/06/25 04:00 Urine WBC Clumps Present /hpf (None Seen) Urine Hyaline Casts Mod /lpf (0 - 2) Urine Mucus Few (None Seen) Urine Protein/Creatinine Ratio 4.08 Urine Total Protein 204.4 mg/dL (1-14) H Urine Creatinine 52.93 mg/dL (30.0-125.0) Urine Sodium 114 mmol/L (40-220) Urine Color Light-orange (Yellow) Urine Clarity Turbid (Clear) H Urine pH 7.5 (5.0-9.0) Urine Specific [place] 1.019 (1.001-1.035) Urine Protein 3+ (Negative) H Urine Ketones 1+ (Negative) H Urine Blood 3+ /uL (Negative) H Urine Nitrite Negative (Negative) Urine Bilirubin Negative (Negative) Urine Urobilinogen Normal mg/dL (Negative) Urine Leukocyte Esterase Negative /uL (Negative) Urine RBC 1386 /hpf (0 - 4) Urine Microscopic WBC 9 /HPF (0-5) H Urine Squamous Epithelial Cells Few /hpf (<5) Urine Bacteria None seen /hpf (None Seen) Urine Glucose 2+ mg/dL (Normal) H Microbiology Microbiology Date/Time Source Procedure Growth Status 09/06/25 04:10 Blood Blood Culture - Preliminary NO GROWTH AFTER 72 HOURS OF INCUBATION. Resulted 08/22/25 12:52 Urine - [place] Port Urine Culture - Final Complete 08/22/25 08:06 Nose MRSA Screen - Final Complete Assessment/Plan Assessment/Plan Impression: Acute hypoxic respiratory failure Acute hypercapnic respiratory failure Dependence on supplemental oxygen Pulmonary edema Pulmonary hypertension Metabolic acidosis Acute renal failure Morbid obesity Events: Patient is currently off vent, on supplemental oxygen On 5 LPM NC Taper O2 as tolerated Hemodialysis per Nephrology Follow up Nephrology recs Continue antibiotics. WBC currently 17.8 K Continue bronchodilators Started on Mucomyst IR consult for tunneled catheter. Head of bed elevation Aspiration precautions Physical therapy Patient is stable from the pulmonary standpoint for downgrade to RONI. Labs and imaging reviewed. Rest of plan as noted below. Plan: S/p extubation On supplemental oxygen Titrate to keep O2 sats above 90%. Continue antibiotics. Continue bronchodilators Mucomyst Tube feeds for nutritional support Pressors as necessary for hemodynamic support Titrate to keep mean arterial pressure greater than 65 mmHg. Hemodialysis per Nephrology Monitor renal function Monitor electrolytes. Supplement as necessary. Monitor ins and outs. Recommend diet and lifestyle modifications for weight reduction Obesity complicates all care GI prophylaxis. DVT prophylaxis. Prognosis: Poor given patient's multiple co-morbidities. Condition: Critical Rest of plan per hospitalist and other consultants. A total of 35 minutes of critical care time was spent reviewing the patient record, examining the patient, making a diagnostic and therapeutic plan, discussing this plan with the medical personnel, following up on diagnostic studies and following the patient for clinical stability excluding any and all procedures. At least 50% of this time was spent in direct, [id number] contact. Thank you, Dr. Mike Zheng, for allowing me to participate in this patient's care. Further recommendations will depend on the patient's clinical course. Please do not hesitate to contact me if you have any questions or concerns. This medical document was created using an electronic medical record system with [employer] dictation system. Although these documentations are being carefully reviewed, there may still be some phonetic and typographical changes. The errors are purely typographical, due to imperfection on the software program, and do not reflect any compromise in the patient's medical care. Plan discussed with: Other (MARU Oconnell) Visit Coding Pulmonary Billing Provider: RAVI SABA MD Date of Service if different f: Sep 09, 2025 Common Visit Codes: [id number] INP/OBS CARE(HIGH), [id number] CARE 30-74 MIN RAVI SABA MD Sep 09, 2025 23:58
[2025-09-10] VITALS (55 sets, daily range): BP systolic 110–179; BP diastolic 46–89; PULSE 85–113; RESP 13–25; TEMP 97.7–98.9; O2SAT 84–99
[2025-09-10 04:16] LABS: Base Excess 0.4 mmol/L (-2.0-3.0)
[2025-09-10] MEDS: ACETYLCYSTEINE 10 %(100MG/ML) SOL 4ML ONE (05:54)
[2025-09-10] MEDS: IPRATROPIUM BROM 0.5 MG/2.5ML INH SOL ONE (05:54)
[2025-09-10] MEDS: LEVALBUTEROL HCL 1.25 MG/3 ML NEB ONE (05:54)
[2025-09-10 06:05] LABS: Hematocrit 40.0 % (36.0-46.0); Hemoglobin 11.4 g/dL (12.2-16.2); Mean Corpuscular Hemoglobin 18.9 pg (28.0-32.0); Mean Corpuscular Volume 66.1 fL (80.0-100.0); Nucleated Red Blood Cells % 0.1 %
[2025-09-10 06:11] LABS: Anion Gap 12 (5-15); Carbon Dioxide 26 mmol/L (20-31); Chloride 101 mmol/L (98-107); Potassium 4.0 mmol/L (3.5-5.1); Sodium 139 mmol/L (136-145)
[2025-09-10 06:12] LABS: Calcium 9.1 mg/dL (8.7-10.4)
[2025-09-10 06:17] LABS: BUN/Creatinine Ratio 9.3 (10.0-20.0)
[2025-09-10 06:18] LABS: Blood Urea Nitrogen 57 mg/dL (9-23); Glucose 108 mg/dL (74-106); Magnesium 2.2 mg/dL (1.6-2.6)
--- NOTE | 2025-09-10 07:31 | DVHPNRES ---
Progress Note Date Seen: Sep 10, 2025 Resident Creating Document: SALLY MINOR RESIDENT Has the PT tested + for MRSA If YES, has PT been informed?: No Medical Necessity Reason Pt with a Central, PICC or Fol: Yes The following are medically ne: Central Line, Meng Catheter Reason for meng catheter: Strict I&O Subjective Review of Systems Ms. Marin is a 75-year-old female with prior medical history of CHF, COPD with home oxygen, gout, anxiety, diabetes mellitus, hyperlipidemia, hypertension, and PAD, who to [facility] with chief complaint of shortness of breath and back and midsternal non-radiating chest pain. At time of this evaluation the patient is intubated and sedated, history was taken from her daughter Susy at bedside and from medical record. Per her daughter, patient has been complaining of progressively worsening shortness of breath for the last 2 weeks associated with general malaise and orthopnea, describing very wet coughing sounds when her mother lays flat. She states that her mother began complaining of worsening shortness of breath associated with non-radiating midsternal chest pain which prompted her to call EMS. Per record, on seen she was saturating 74%, she was placed on CPAP with inspiration increasing to 88% on route to the emergency department. On evaluation in the ED, is afebrile, slightly hypertensive, and tachypneic saturating 81% which she was placed on BiPAP. Initial labs significant for leukocytosis of 11.3, with elevated hematocrit, and thrombocytopenia, Hyperkalemia, creatinine 4.09, BUN 46, and ABG significant for respiratory acidosis, troponins are negative, BNP 2515.41.Patient is influenza A and B positive. Chest x-ray shows moderate to severe pulmonary edema. Patient further deteriorated requiring intubation for respiratory distress. She was started on IV Lasix, IV methylprednisolone, hyperkalemia protocol, bicarbonate drip, and nitroglycerin drip. On my initial evaluation in the ED, the patient is sedated, intubated, and mechanically ventilated, currently not on pressors. Prior Medical history: CHF, COPD, gout, anxiety, type 2 diabetes mellitus, hyperlipidemia, hypertension, PAD, pulmonary hypertension Previous surgical history: Left leg stenting for PAD Allergies: Denies Social history: Daughter refers the patient smokes cigarettes with cessation approximately 20 years ago Home medications: Allopurinol, insulin, gabapentin, simvastatin, tadalafil 09/10/2025: Patient seen in the RONI. Extubated 09/07/2025. Overnight, report she has not been sleeping, has become progressively more altered to get out of bed. On evaluation, she is afebrile, tachycardic, blood pressure tends toward hypertension. WBCs are stable. She is on Oxymizer at 6 L. Right femoral Frank catheter was removed today. We will continue to monitor. 09/09/2025: Patient seen in the ICU. She was extubated 09/07/2025. No overnight events to report. Per nurse, patient continues to have thick oral secretions. She is afebrile, normocardic, tends toward hypertension. WBCs are uptrending. She is tolerating on supplemental O2 via NC. She had dialysis yesterday with 3 L pulled. IR has been consulted for tunnel catheter. PT has been consulted for evaluation of PT needs. Patient will be downgraded to RONI. 09/08/2025: Patient seen in the ICU. She was extubated yesterday (09/07/2025). No overnight events to report, per nurse, blood pressure has been elevated. She is afebrile, normocarrdic, with elevated BP. WBCs continue to increase. She is tolerating on supplemental O2 via NC between 2-5 L. Patient will have dialysis today. Consult to IR for placement of tunneled catheter for has been placed. 09/07/2025: Patient seen in the ICU. She is intubated, mechanically ventilated, no longer on sedation. Per nurse, no overnight events to report. She is afebrile, normocardic, with stable BP. Increased in WBCs today. CPAP trial today was successful. Patient was extubated this afternoon. We will continue to monitor. 09/06/2025; Patient seen in the ICU. She is intubated, on mechanical ventilation, no longer sedated, not on pressors. Per nurse, no adverse events over night to report. She is afebrile, normocardic, with stable BP. Labs show downtrending WBCs. Patient underwent dialysis today with 3L pulled. Patient was placed on CPAP after dialysis, how she failed CPAP trial. We will try one more time tomorrow. Possibility of tracheostomy has been discussed with her daughter. 09/05/2025: Patient seen in the ICU. She is intubated, on mechanical ventilation, no longer sedated, not on pressors. Per her nurse, her blood pressure has been elevated. She is afebrile, normocardic, with stable BP. Labs show uptrending WBCs. UA has been ordered and cefepime has been started. Patient was placed on pressure support today and tolerated approximately 4 hours. Tomorrow the patient will have dialysis in the morning with a CPAP trial. If successful, possible extubation. Objective vital signs Vital Sign Date Time Temp Pulse Resp B/P (MAP) Pulse Ox O2 Delivery O2 Flow Rate FiO2 09/10/25 07:24 156/67 09/10/25 07:13 99 18 95 09/10/25 07:05 Simple Mask* 6 50 09/10/25 04:01 98.9 98.9 Total Intake and Output 09/09/25 09/09/25 09/10/25 15:00 23:00 07:00 Intake Total 50 ml 300 ml 137 ml Output Total 150 ml 200 ml Balance 50 ml 150 ml -63 ml medications Current Medications Medications Dose Ordered Sig/Adri Route Start Time Stop Time Status Last Admin Dose Admin Multivit/Ca Carb/ B Cmplx/FA/Prenat 1 tab DAILY PO 08/21/25 10:00 09/10/25 07:24 1 TAB Diagnostic Test (Pha) 1 strip ACHS 08/21/25 07:00 09/10/25 06:07 1 STRIP Insulin Human Regular ACHS SC 08/21/25 07:00 09/10/25 06:31 2 UNITS Dextrose 50 ml UD PRN IV 08/20/25 23:15 Sodium Chloride 10 ml Q8HR IV 08/21/25 06:00 09/10/25 06:07 10 ML Docusate Sodium 100 mg BIDPRN PRN PO 08/20/25 23:15 Acetaminophen 650 mg Q6HP PRN PO 08/20/25 23:15 09/10/25 02:11 650 MG Nitroglycerin 0.4 mg Q5MINP PRN SL 08/20/25 23:15 Hold Pantoprazole Sodium 40 mg DAILY IV 08/22/25 10:00 09/10/25 07:24 40 MG Sildenafil Citrate 20 mg TID@08,14,20 NG 08/30/25 20:00 09/10/25 07:24 20 MG Amlodipine Besylate 10 mg DAILY PO 09/01/25 10:45 09/10/25 07:24 10 MG Enteral Nutritional Formula 1,000 ml 30ML/HR GT 09/02/25 18:45 09/08/25 11:48 1,000 ML Amino Acid Protein 30 ml Q6HR GT 09/03/25 00:00 09/10/25 06:07 30 ML Hydralazine HCl 50 mg Q8HR PO 09/05/25 22:00 09/10/25 06:07 50 MG Cefepime HCl 50 ml @ 12.5 mls/hr DAILY IV 09/06/25 10:00 09/10/25 07:24 12.5 MLS/HR Vancomycin HCl 0 ml @ 0 mls/hr PER PHARMACY IV 09/07/25 17:00 Levalbuterol HCl 1.25 mg Q6HR NEB 09/09/25 12:00 09/10/25 07:05 1.25 MG Acetylcysteine 100 mg Q6HR NEB 09/09/25 12:00 09/10/25 07:05 100 MG Ipratropium [place] 0.5 mg Q6HR NEB 09/09/25 12:00 09/10/25 07:04 0.5 MG Examination General: Patient is AOx2, hard maintaining attention HEENT: Normocephalic, atraumatic, strabismus of the right eye, pin point pupils reactive, no EOM, pink conjunctiva, pink moist mucous membrane, nasogastric tube in place Respiratory/pulmonary: Bilateral chest expansion, improved breath sounds bilaterally Cardiovascular: Tachycardic Abdomen: Obese, Abdomen nondistended, normal bowel sounds, soft, no grimacing is observed on palpation, no palpable masses. Extremities: No deformities, skin of bilateral lower extremities are extremely dry, pulses 2+ bilateral lower extremities, catheter has been removed, will squeeze hands when prompted to Skin: No rashes or pruritus, there is no sacral edema present at this time. Neurological: Follows commands, without focal deficits laboratory and microbiology Laboratory Tests 09/10/25 05:08 Test 09/10/25 05:08 Range/Units Serum Glucose 108 H 74-106 mg/dL Microbiology Date/Time Source Procedure Growth Status 09/06/25 04:10 Blood Blood Culture - Preliminary NO GROWTH AFTER 72 HOURS OF INCUBATION. Resulted 08/22/25 12:52 Urine - Meng Port Urine Culture - Final Complete 08/22/25 08:06 Nose MRSA Screen - Final Complete Problem List/Assessment/Plan Problem List/Assessment/Plan Neurology # Sedated - Versed Discontinued - Propofol: Discontinued - Fentanyl discontinued Cardiovascular # Acute on chronic HFrEF # Pulmonary Edema - BNP 2515.41 --> 370 - Chest xray 08/20/2025: Moderate to severe pulmonary edema - Chest xray 08/21/2025: Cardiomegaly with pulmonary venous congestion and edema - Echocardiogram 01/14/2022: EF > 60%, Limited echo windows, mild TR, MR - Echocardiogram 10/22/2024: Technically good study sinus rhythm. Concentric LVH with left atrial enlargement. Mild aortic sclerosis. Mild thickening of the anterior and posterior mitral leaflets. Valves appear to be structurally normal. Left ventricular function is preserved at 60% with normal RV function. - Cardiology: Pending echo, considered R/LHC if inconclusive , discontinue bumex drip - Laxis 40 mg IV daily - Per nephrology: Start bumex drip + albumin and D5W 75 cc/hour -- Bumex drip discontinued by cardiology -- D5W has been discontinued due to resolution of hypernatremia - Chest Xray shows worsening, for which lasix 40 mg BID will be initiated - Lasix has been discontinued by Cardiology #Hypertension - Amlodipine 10 mg NG daily - Hydralazine 50 mg q 8 hours #CAD - R/L heart catheterization 08/30/2025: Left main, LAD and circumflex are patent, RCA patent, EF is 50-55% #Severe pulmonary hypertension - R/L heart catheterization 08/30/2025: RA pressure 18 mmHg, RV pressure 62/16 mmHg, pulmonary artery pressure 66/18 mmHg, capillary wedge pressure: 17 mmHg - Per cardiology: Sildenafil 20mg NG TID, originally 40 but this was lowered Respiratory # Ventilator - intubated (08/21/2025) - Extubated (09/07/2025) - Oxymizer 4 L - Ipratropium 0.2 med neb q 4 hours - Levalbuterol 1.25 mg med neb q 6 hours - Mucomyst 100 mg q 8 hours # Acute hypercapnic respiratory failure secondary to pulmonary edema # Acute COPD exacerbation - Methylprednisolone 40 mg IV, discontinued - Ipratropium medneb - Albuterol medneb - Ceftriaxone 1 g IV daily (discontinued) #Influenza A and B - Tamiflu 30 mg BID suspension, discontinued #Respiratory acidosis GI # Peptic ulcer prophylaxis -Pantoprazole 40 mg IV daily # Constipation - Lactulose 15 mL GT # Meng catheter # Possible Complicated UTI, present on admission - Ceftriaxone 1 g IV daily, discontinued Nephrology # COLE on CKD likely hemodynamically mediated/ VMN - NS 1000 cc bolus + 250 cc bolus in preparation for heart cath - NS 100cc/hr for 5 hours after procedure - Furosemide 100 mg IV after procedure, this was discontinued at the request of cardiology - Dialysis catheter placed by Dr. Bahena in right femoral region - Hemodialysis - IR has been consulted for placement of tunnel catheter #Hyperkalemia, resolved - Per nephrology: trial of forced diuresis to enhance potassium excretion, serial chemistry panels, IV bicarbonate infusion, and avoidance of IV contrast if able, currently without urgent indication for kidney replacement therapy - Bicarbonate drip has been dc'd - Per Cardiology: [place] . #Acute metabolic acidosis #Hypernatremia, resolved - D5W, discontinued Infectious disease # Influenza A and B Pneumonia - Tamiflu 30 mg BID suspension, discontinued # Possible Complicated UTI, present on admission - Ceftriaxone 1 g IV daily, discontinued - Cefepime (09/05-) - Vancomycin (09/07-) Hem/onc #Thrombocytopenia, resolved - Monitor Endocrine #Type 2 diabetes mellitus - SSI -Accu cheks DVT prophylaxis: SCD PUD prophylaxis: Pantoprazole 40 mg IV daily Lines -L femoral Central line 08/20/2025 - discontinued on 08/29/2025 -L internal jugular central line 08/29/2025 09/08/2025 -Meng catheter 08/20/2025 -ET tube: 08/21/2025 (extubated 09/07/2025) - Mid line: 09/08/2025 - Femoral frank catheter: 08/30/2025- 09/10/2025 Nutrition: Nepro at a rate of [facility] Versed Discontinued Fentanyl discontinued Propofol: Discontinued Nitroglycerin: Discontinued Nicardipine drip: Discontinued Bicarbonate drip: Discontinued Patient was extubated on 09/07/2025. IR has been consulted for placement of tunnel catheter. PT has been consulted for PT evaluation. Critical care time 50 minutes excluding procedure. Code status discussed greater than 20 minutes: Full CODE STATUS. Daughter, Susy, was updated of her mother's condition at bedside. Plan discussed with Dr. Martell Plan discussed with: Daughter, Other (Nurse (Darlene)) My Orders My Orders Orders - SALLY MINOR RESIDENT Procedure Category Date Status Time Levalbuterol Hcl PHA 09/09/25 In Process (Xopenex Medneb) 12:00 Acetylcysteine PHA 09/09/25 In Process Inhalation 10% 12:00 Ipratropium Medneb PHA 09/09/25 In Process (Atrovent Medneb) 12:00 Pt Request For Service PT 09/09/25 Logged 10:30 Vancomycin Per CHASTITY 09/09/25 In Process Pharmacy Protoc 11:03 Transfer Orders XFER 09/09/25 Transmitted 12:29 Dietary Evaluation Review Comments: Nutrition Recommendation: 1) EN Nepro Carbsteady @ 30ml/hr x 24hr (goal) along with Pro-stat 1 pk BID. Water flush 50ml Q6H if allowed, adjust PRN. TF at goal volume along with propofol & Pro-stat provide 1777 kcal (100%), 89 gm protein (83%), and 723 ml free water(including flush). 2) TPN if NPO >7 days 3) Monitor NPO status, lab values, weight trend, and I/O Expected Outcomes/Goals: Intake to meet >75% estimated needs Lab values to improve FU 2-3 days Visit Coding STANDARD RES Billing Provider: RAVI MARTELL MD Date of Service if different f: Sep 10, 2025 Common Visit Codes: [id number] CARE 30-74 MIN SALLY MINOR RESIDENT Sep 10, 2025 07:31
[2025-09-10] MEDS: diphenhydrAMINE HCL 50 MG/1 ML VL IV ONE (14:19)
[2025-09-10] MEDS: MIDAZOLAM HCL 2MG/2ML 2ml VIAL (1mg/ml) IV ONE (16:59)
[2025-09-10] MEDS: DEXMEDETOMIDINE HCL IN D5W 100 ML IV SCH (18:28)
--- NOTE | 2025-09-10 23:09 | DVHPN2 ---
Subjective DOS: 09/10/2025 Patient seen and examined at bedside. On supplemental oxygen Overnight events reviewed. Changes from previous H/P or p: No Changes Eyes: No Pain, No Vision change, No Conjunctivae inflammation, No Eyelid inflammation, No Other, No Redness ENT: No Ear pain, No Ear discharge, No Nose pain, No Nose discharge, No Nose congestion, No Mouth pain, No Mouth swelling, No Throat pain, No Throat swelling, No Other Cardiovascular: Chest Pain; No Palpitations, No Orthopnea, No Paroxysmal Noc. Dyspnea, No Edema, No Lt Headedness, No Other Respiratory: No Cough, No Dry; Shortness of breath; No SOB with excertion, No Wheezing, No Hemoptysis, No Pleuritic Pain, No Sputum; Other (SOB at rest) Gastrointestinal: No Nausea, No Vomiting, No Abdominal Pain, No Diarrhea, No Constipation, No Melena, No Hematochezia, No Other Genitourinary: No Dysuria, No Frequency, No Incontinence, No Hematuria, No Retention; Other (Schuster catheter in place) Musculoskeletal: other (Bilateral leg discoloration); No neck pain, No shoulder pain, No arm pain, No back pain, No hand pain, No leg pain, No foot pain Skin: No Rash, No Lesions, No Jaundice, No Bruising; Other (Left foot wound) Objective Vitals Vital Signs Date Time Temp Pulse Resp B/P (MAP) Pulse Ox O2 Delivery O2 Flow Rate FiO2 09/10/25 20:00 96 09/10/25 20:00 19 90 Oxymizer 6 N/A 09/10/25 16:00 98.0 163/72 (102) 98.0 Intake/Output Intake and Output 09/10/25 07:00 Intake Total 487 ml Output Total 350 ml Balance 137 ml IV Total 50 ml Tube Feeding 237 ml Other 200 ml Output Urine Total 350 ml Stool Total 0 ml Exam Gen.: Patient lying in bed in no apparent distress. On supplemental oxygen. Head: Normocephalic, atraumatic. Eyes: EOMI/PERRLA. Ears: Normal hearing. Normal anatomy. Neck/trachea: Trachea midline, supple. Nose: Normal external anatomy. Mouth: Moist mucous membranes. Chest: Decreased air entry bilaterally. No wheezing or rhonchi. Cardiovascular: Positive S1, positive S2. Regular rate and rhythm. Abdomen: Positive bowel sounds in all 4 quadrants. Soft, non-tender, non- distended. : Deferred. Rectal: Deferred. Skin: Warm, dry. Intact. Extremities: 2+ radial pulses bilaterally. No lower extremity edema. Neuro: Awake, alert, oriented x3. No gross motor or sensory deficits. Cranial nerves II through XII intact. Gait not assessed. Medications Current Medications Medications Dose Ordered Sig/Adri Route Start Time Stop Time Status Last Admin Dose Admin Multivit/Ca Carb/ B Cmplx/FA/Prenat 1 tab DAILY PO 08/21/25 10:00 09/10/25 07:24 1 TAB Diagnostic Test (Pha) 1 strip ACHS 08/21/25 07:00 09/10/25 16:34 1 STRIP Insulin Human Regular ACHS SC 08/21/25 07:00 09/10/25 10:41 2 UNITS Dextrose 50 ml UD PRN IV 08/20/25 23:15 Sodium Chloride 10 ml Q8HR IV 08/21/25 06:00 09/10/25 10:42 10 ML Docusate Sodium 100 mg BIDPRN PRN PO 08/20/25 23:15 Acetaminophen 650 mg Q6HP PRN PO 08/20/25 23:15 09/10/25 13:23 650 MG Nitroglycerin 0.4 mg Q5MINP PRN SL 08/20/25 23:15 Hold Pantoprazole Sodium 40 mg DAILY IV 08/22/25 10:00 09/10/25 07:24 40 MG Sildenafil Citrate 20 mg TID@08,14,20 NG 08/30/25 20:00 09/10/25 13:24 20 MG Amlodipine Besylate 10 mg DAILY PO 09/01/25 10:45 09/10/25 07:24 10 MG Enteral Nutritional Formula 1,000 ml 30ML/HR GT 09/02/25 18:45 09/08/25 11:48 1,000 ML Amino Acid Protein 30 ml Q6HR GT 09/03/25 00:00 09/10/25 16:21 30 ML Hydralazine HCl 50 mg Q8HR PO 09/05/25 22:00 09/10/25 13:24 50 MG Cefepime HCl 50 ml @ 12.5 mls/hr DAILY IV 09/06/25 10:00 09/10/25 07:24 12.5 MLS/HR Vancomycin HCl 0 ml @ 0 mls/hr PER PHARMACY IV 09/07/25 17:00 Levalbuterol HCl 1.25 mg Q6HR NEB 09/09/25 12:00 09/10/25 18:26 1.25 MG Acetylcysteine 100 mg Q6HR NEB 09/09/25 12:00 09/10/25 18:26 100 MG Ipratropium [place] 0.5 mg Q6HR NEB 09/09/25 12:00 09/10/25 18:26 0.5 MG Laboratory Results Laboratory Tests 09/10/25 05:08 Chemistry Test 09/10/25 05:08 Calcium Level 9.1 mg/dL (8.7-10.4) Magnesium Level 2.2 mg/dL (1.6-2.6) Phosphorus Level 4.6 mg/dL (2.4-5.1) Urinalysis Test 08/22/25 11:43 08/22/25 12:52 09/06/25 04:00 Urine WBC Clumps Present /hpf (None Seen) Urine Hyaline Casts Mod /lpf (0 - 2) Urine Mucus Few (None Seen) Urine Protein/Creatinine Ratio 4.08 Urine Total Protein 204.4 mg/dL (1-14) H Urine Creatinine 52.93 mg/dL (30.0-125.0) Urine Sodium 114 mmol/L (40-220) Urine Color Light-orange (Yellow) Urine Clarity Turbid (Clear) H Urine pH 7.5 (5.0-9.0) Urine Specific [place] 1.019 (1.001-1.035) Urine Protein 3+ (Negative) H Urine Ketones 1+ (Negative) H Urine Blood 3+ /uL (Negative) H Urine Nitrite Negative (Negative) Urine Bilirubin Negative (Negative) Urine Urobilinogen Normal mg/dL (Negative) Urine Leukocyte Esterase Negative /uL (Negative) Urine RBC 1386 /hpf (0 - 4) Urine Microscopic WBC 9 /HPF (0-5) H Urine Squamous Epithelial Cells Few /hpf (<5) Urine Bacteria None seen /hpf (None Seen) Urine Glucose 2+ mg/dL (Normal) H Blood Gas Results Test 09/10/25 04:07 Arterial Blood pH 7.325 (7.350-7.450) FiO2 % 52.0 Microbiology Microbiology Date/Time Source Procedure Growth Status 12/9/25 04:10 Blood Blood Culture - Preliminary NO GROWTH AFTER 72 HOURS OF INCUBATION. Resulted 08/22/25 12:52 Urine - [place] Urine Culture - Final Complete 08/22/25 08:06 Nose MRSA Screen - Final Complete Assessment/Plan Assessment/Plan Impression: Acute hypoxic respiratory failure Acute hypercapnic respiratory failure Dependence on supplemental oxygen Pulmonary edema Pulmonary hypertension Metabolic acidosis Acute renal failure Morbid obesity Events: Patient remains on supplemental oxygen On 6 LPM Oxymizer Taper O2 as tolerated Altered mental status Patient has soft wrist restraints Benadryl 25 mg IVPx1 given for agitation Hemodialysis per Nephrology Follow up Nephrology recs Continue antibiotics. WBC currently stable at 17.9 K Continue bronchodilators Mucomyst Removed femoral Frank catheter - concern as cause of elevated WBC Monitor temperatures Head of bed elevation Aspiration precautions Physical therapy IR consult for tunneled catheter was placed yesterday (09/09). Labs and imaging reviewed. Rest of plan as noted below. Plan: S/p extubation on 09/07/25 On supplemental oxygen Titrate to keep O2 sats above 90%. Continue antibiotics. Continue bronchodilators Mucomyst Tube feeds for nutritional support Pressors as necessary for hemodynamic support Titrate to keep mean arterial pressure greater than 65 mmHg. Hemodialysis per Nephrology Monitor renal function Monitor electrolytes. Supplement as necessary. Monitor ins and outs. Recommend diet and lifestyle modifications for weight reduction Obesity complicates all care GI prophylaxis. DVT prophylaxis. Prognosis: Poor given patient's multiple co-morbidities. Condition: Critical Rest of plan per hospitalist and other consultants. A total of 35 minutes of critical care time was spent reviewing the patient record, examining the patient, making a diagnostic and therapeutic plan, discussing this plan with the medical personnel, following up on diagnostic studies and following the patient for clinical stability excluding any and all procedures. At least 50% of this time was spent in direct, [id number] contact. Thank you, Dr. Mike Zheng, for allowing me to participate in this patient's care. Further recommendations will depend on the patient's clinical course. Please do not hesitate to contact me if you have any questions or concerns. This medical document was created using an electronic medical record system with [employer] dictation system. Although these documentations are being carefully reviewed, there may still be some phonetic and typographical changes. The errors are purely typographical, due to imperfection on the software program, and do not reflect any compromise in the patient's medical care. Plan discussed with: Other (RN) My Orders Orders - RAVI SAAB MD Procedure Category Date Status Time Dexmedetomidine Hcl PHA 09/10/25 In Process In D5w (Precedex) 16:15 Visit Coding Pulmonary Billing Provider: RAVI SABA MD Date of Service if different f: Sep 10, 2025 Common Visit Codes: 89203-SXOPIURPHB INP/OBS CARE(HIGH), 16490-FLVSODRF CARE 30-74 MIN RAVI SABA MD Sep 10, 2025 23:09
[2025-09-11] VITALS (62 sets, daily range): BP systolic 107–194; BP diastolic 48–133; PULSE 83–109; RESP 12–30; TEMP 97.4–98; O2SAT 88–100
[2025-09-11 04:46] LABS: Hematocrit 41.5 % (36.0-46.0); Hemoglobin 11.6 g/dL (12.2-16.2); Mean Corpuscular Hemoglobin 19.1 pg (28.0-32.0); Mean Corpuscular Volume 68.0 fL (80.0-100.0)
[2025-09-11 05:07] LABS: Chloride 101 mmol/L (98-107); Potassium 4.3 mmol/L (3.5-5.1); Sodium 140 mmol/L (136-145)
[2025-09-11 05:08] LABS: Anion Gap 13 (5-15); Carbon Dioxide 26 mmol/L (20-31)
[2025-09-11 05:09] LABS: Calcium 8.7 mg/dL (8.7-10.4)
[2025-09-11 05:13] LABS: BUN/Creatinine Ratio 10.3 (10.0-20.0)
[2025-09-11 05:18] LABS: Total Cells Counted 100.0 (100)
[2025-09-11 05:26] LABS: Blood Urea Nitrogen 70 mg/dL (9-23); Glucose 114 mg/dL (74-106)
--- NOTE | 2025-09-11 11:50 | DVHPN2 ---
Progress Note - Dictate Date Seen: Sep 11, 2025 Has the PT tested + for MRSA If YES, has PT been informed?: No Medical Necessity Reason Pt with a Central, PICC or Fol: Yes The following are medically ne: Central Line, Meng Catheter Reason for meng catheter: Strict I&O Subjective Seen in ICU, somnolent. Per nursing report patient received IV Precedex , has been held. vital signs Vital Sign Date Time Temp Pulse Resp B/P (MAP) Pulse Ox O2 Delivery O2 Flow Rate FiO2 09/11/25 11:00 92 18 136/57 (83) 100 09/11/25 10:00 Oxymizer 6 N/A 09/11/25 08:00 97.9 97.9 Total Intake and Output 09/10/25 09/10/25 09/11/25 15:00 23:00 07:00 Intake Total 388.375 ml 369.725 ml Output Total 300 ml 300 ml Balance 88.375 ml 69.725 ml medications Current Medications Medications Dose Ordered Sig/Adri Route Start Time Stop Time Status Last Admin Dose Admin Multivit/Ca Carb/ B Cmplx/FA/Prenat 1 tab DAILY PO 08/21/25 10:00 09/11/25 10:30 1 TAB Diagnostic Test (Pha) 1 strip ACHS 08/21/25 07:00 09/10/25 22:00 1 STRIP Insulin Human Regular ACHS SC 08/21/25 07:00 09/10/25 10:41 2 UNITS Dextrose 50 ml UD PRN IV 08/20/25 23:15 Sodium Chloride 10 ml Q8HR IV 08/21/25 06:00 09/11/25 06:00 10 ML Docusate Sodium 100 mg BIDPRN PRN PO 08/20/25 23:15 Acetaminophen 650 mg Q6HP PRN PO 08/20/25 23:15 09/10/25 13:23 650 MG Nitroglycerin 0.4 mg Q5MINP PRN SL 08/20/25 23:15 Hold Pantoprazole Sodium 40 mg DAILY IV 08/22/25 10:00 09/11/25 10:30 40 MG Sildenafil Citrate 20 mg TID@08,14,20 NG 08/30/25 20:00 09/11/25 08:02 20 MG Amlodipine Besylate 10 mg DAILY PO 09/01/25 10:45 09/11/25 10:30 10 MG Enteral Nutritional Formula 1,000 ml 30ML/HR GT 09/02/25 18:45 09/08/25 11:48 1,000 ML Amino Acid Protein 30 ml Q6HR GT 09/03/25 00:00 09/11/25 00:00 30 ML Hydralazine HCl 50 mg Q8HR PO 09/05/25 22:00 09/11/25 05:30 50 MG Cefepime HCl 50 ml @ 12.5 mls/hr DAILY IV 09/06/25 10:00 09/11/25 10:30 12.5 MLS/HR Vancomycin HCl 0 ml @ 0 mls/hr PER PHARMACY IV 09/07/25 17:00 Levalbuterol HCl 1.25 mg Q6HR NEB 09/09/25 12:00 09/11/25 06:06 1.25 MG Acetylcysteine 100 mg Q6HR NEB 09/09/25 12:00 09/11/25 06:06 100 MG Ipratropium [place] 0.5 mg Q6HR NEB 09/09/25 12:00 09/11/25 06:06 0.5 MG objective Gen: nad, somnolent heent: nc/at, mmm lungs: Occasional rhonchi cvs: no rub abd: soft, bowel sounds audible ext: Trace edema laboratory and microbiology Laboratory Tests 09/11/25 04:18 Test 09/11/25 04:18 Range/Units Serum Glucose 114 H 74-106 mg/dL Assessment/Plan IMP: 1) Hemodynamically mediated acute kidney injury and vasomotor nephropathy/ ATN requiring kidney replacement therapy 2) chronic kidney disease stage IIIB possibly secondary to underlying diabetic kidney disease 3) acute hypoxemic respiratory failure 4) working diagnosis of possible influenza pneumonia 5) hyperkalemia REC: - trial of Bumex to evaluate efficacy of loop diuretic - hemodialysis tentatively September 12 after access placed - without urgent indication for dialysis today. Dietary Evaluation Review Comments: Nutrition Recommendation: 1) EN Nepro Carbsteady @ 30ml/hr x 24hr (goal) along with Pro-stat 1 pk BID. Water flush 50ml Q6H if allowed, adjust PRN. TF at goal volume along with propofol & Pro-stat provide 1777 kcal (100%), 89 gm protein (83%), and 723 ml free water(including flush). 2) TPN if NPO >7 days 3) Monitor NPO status, lab values, weight trend, and I/O Expected Outcomes/Goals: Intake to meet >75% estimated needs Lab values to improve FU 2-3 days Plan discussed with: Other JOSEPHINE DONNELLY MD Sep 11, 2025 11:50
--- NOTE | 2025-09-11 11:51 | DVHPNRES ---
Progress Note Date Seen: Sep 11, 2025 Resident Creating Document: HARVEY MOROE RESIDENT Has the PT tested + for MRSA If YES, has PT been informed?: No Medical Necessity Reason Pt with a Central, PICC or Fol: Yes The following are medically ne: Meng Catheter Reason for meng catheter: Strict I&O Subjective Review of Systems Ms. Marin is a 75-year-old female with prior medical history of CHF, COPD with home oxygen, gout, anxiety, diabetes mellitus, hyperlipidemia, hypertension, and PAD, who to [facility] with chief complaint of shortness of breath and back and midsternal non-radiating chest pain. At time of this evaluation the patient is intubated and sedated, history was taken from her daughter Susy at bedside and from medical record. Per her daughter, patient has been complaining of progressively worsening shortness of breath for the last 2 weeks associated with general malaise and orthopnea, describing very wet coughing sounds when her mother lays flat. She states that her mother began complaining of worsening shortness of breath associated with non-radiating midsternal chest pain which prompted her to call EMS. Per record, on seen she was saturating 74%, she was placed on CPAP with inspiration increasing to 88% on route to the emergency department. On evaluation in the ED, is afebrile, slightly hypertensive, and tachypneic saturating 81% which she was placed on BiPAP. Initial labs significant for leukocytosis of 11.3, with elevated hematocrit, and thrombocytopenia, Hyperkalemia, creatinine 4.09, BUN 46, and ABG significant for respiratory acidosis, troponins are negative, BNP 2515.41.Patient is influenza A and B positive. Chest x-ray shows moderate to severe pulmonary edema. Patient further deteriorated requiring intubation for respiratory distress. She was started on IV Lasix, IV methylprednisolone, hyperkalemia protocol, bicarbonate drip, and nitroglycerin drip. On my initial evaluation in the ED, the patient is sedated, intubated, and mechanically ventilated, currently not on pressors. Prior Medical history: CHF, COPD, gout, anxiety, type 2 diabetes mellitus, hyperlipidemia, hypertension, PAD, pulmonary hypertension Previous surgical history: Left leg stenting for PAD Allergies: Denies Social history: Daughter refers the patient smokes cigarettes with cessation approximately 20 years ago Home medications: Allopurinol, insulin, gabapentin, simvastatin, tadalafil 09/11/2025:The patient was examined at the bedside today. Compared to prior days, she appears more calm and clinically improved. She is currently on 6 L Oxymizer, with oxygen saturations ranging from 100% ? 99% ? 94%, overall acceptable without signs of acute respiratory distress. Hemodynamically, blood pressure is trending on the higher side today, She remains anxious, which is felt to be multifactorial, likely related to uremia, recent critical illness, and resolving infection. From an infectious standpoint, WBC count has improved to 15.4, suggesting a down-trending leukocytosis, though still elevated. The femoral temporary dialysis catheter has been removed, and the patient is planned for tunneled right IJ dialysis catheter placement once infection parameters stabilize. She received Precedex (dexmedetomidine) for anxiety/agitation with good effect. 09/10/2025: Patient seen in the [facility]. Extubated 09/07/2025. Overnight, report she has not been sleeping, has become progressively more altered to get out of bed. On evaluation, she is afebrile, tachycardic, blood pressure tends toward hypertension. WBCs are stable. She is on Oxymizer at 6 L. Right femoral Frank catheter was removed today. We will continue to monitor. 09/09/2025: Patient seen in the ICU. She was extubated 09/07/2025. No overnight events to report. Per nurse, patient continues to have thick oral secretions. She is afebrile, normocardic, tends toward hypertension. WBCs are uptrending. She is tolerating on supplemental O2 via NC. She had dialysis yesterday with 3 L pulled. IR has been consulted for tunnel catheter. PT has been consulted for evaluation of PT needs. Patient will be downgraded to RONI. 09/08/2025: Patient seen in the ICU. She was extubated yesterday (09/07/2025). No overnight events to report, per nurse, blood pressure has been elevated. She is afebrile, normocarrdic, with elevated BP. WBCs continue to increase. She is tolerating on supplemental O2 via NC between 2-5 L. Patient will have dialysis today. Consult to IR for placement of tunneled catheter for has been placed. 09/07/2025: Patient seen in the ICU. She is intubated, mechanically ventilated, no longer on sedation. Per nurse, no overnight events to report. She is afebrile, normocardic, with stable BP. Increased in WBCs today. CPAP trial today was successful. Patient was extubated this afternoon. We will continue to monitor. 09/06/2025; Patient seen in the ICU. She is intubated, on mechanical ventilation, no longer sedated, not on pressors. Per nurse, no adverse events over night to report. She is afebrile, normocardic, with stable BP. Labs show downtrending WBCs. Patient underwent dialysis today with 3L pulled. Patient was placed on CPAP after dialysis, how she failed CPAP trial. We will try one more time tomorrow. Possibility of tracheostomy has been discussed with her daughter. 09/05/2025: Patient seen in the ICU. She is intubated, on mechanical ventilation, no longer sedated, not on pressors. Per her nurse, her blood pressure has been elevated. She is afebrile, normocardic, with stable BP. Labs show uptrending WBCs. UA has been ordered and cefepime has been started. Patient was placed on pressure support today and tolerated approximately 4 hours. Tomorrow the patient will have dialysis in the morning with a CPAP trial. If successful, possible extubation. Objective vital signs Vital Sign Date Time Temp Pulse Resp B/P (MAP) Pulse Ox O2 Delivery O2 Flow Rate FiO2 09/11/25 11:00 92 18 136/57 (83) 100 09/11/25 10:00 Oxymizer 6 N/A 09/11/25 08:00 97.9 97.9 Total Intake and Output 09/10/25 09/10/25 09/11/25 15:00 23:00 07:00 Intake Total 388.375 ml 369.725 ml Output Total 300 ml 300 ml Balance 88.375 ml 69.725 ml medications Current Medications Medications Dose Ordered Sig/Adri Route Start Time Stop Time Status Last Admin Dose Admin Multivit/Ca Carb/ B Cmplx/FA/Prenat 1 tab DAILY PO 08/21/25 10:00 09/11/25 10:30 1 TAB Diagnostic Test (Pha) 1 strip ACHS 08/21/25 07:00 09/10/25 22:00 1 STRIP Insulin Human Regular ACHS SC 08/21/25 07:00 09/10/25 10:41 2 UNITS Dextrose 50 ml UD PRN IV 08/20/25 23:15 Sodium Chloride 10 ml Q8HR IV 08/21/25 06:00 09/11/25 06:00 10 ML Docusate Sodium 100 mg BIDPRN PRN PO 08/20/25 23:15 Acetaminophen 650 mg Q6HP PRN PO 08/20/25 23:15 09/10/25 13:23 650 MG Nitroglycerin 0.4 mg Q5MINP PRN SL 08/20/25 23:15 Hold Pantoprazole Sodium 40 mg DAILY IV 08/22/25 10:00 09/11/25 10:30 40 MG Sildenafil Citrate 20 mg TID@08,14,20 NG 08/30/25 20:00 09/11/25 08:02 20 MG Amlodipine Besylate 10 mg DAILY PO 09/01/25 10:45 09/11/25 10:30 10 MG Enteral Nutritional Formula 1,000 ml 30ML/HR GT 09/02/25 18:45 09/08/25 11:48 1,000 ML Amino Acid Protein 30 ml Q6HR GT 09/03/25 00:00 09/11/25 00:00 30 ML Hydralazine HCl 50 mg Q8HR PO 09/05/25 22:00 09/11/25 05:30 50 MG Cefepime HCl 50 ml @ 12.5 mls/hr DAILY IV 09/06/25 10:00 09/11/25 10:30 12.5 MLS/HR Vancomycin HCl 0 ml @ 0 mls/hr PER PHARMACY IV 09/07/25 17:00 Levalbuterol HCl 1.25 mg Q6HR NEB 09/09/25 12:00 09/11/25 06:06 1.25 MG Acetylcysteine 100 mg Q6HR NEB 09/09/25 12:00 09/11/25 06:06 100 MG Ipratropium [place] 0.5 mg Q6HR NEB 09/09/25 12:00 09/11/25 06:06 0.5 MG Examination General: Awake, calm, anxious but cooperative HEENT: Normocephalic, atraumatic, strabismus of the right eye, pin point pupils reactive, no EOM, pink conjunctiva, pink moist mucous membrane, nasogastric tube in place Respiratory/pulmonary: Bilateral chest expansion, improved breath sounds bilaterally Cardiovascular: Tachycardic Abdomen: Obese, Abdomen nondistended, normal bowel sounds, soft, no grimacing is observed on palpation, no palpable masses. Extremities: No deformities, skin of bilateral lower extremities are extremely dry, pulses 2+ bilateral lower extremities, catheter has been removed, will squeeze hands when prompted to Skin: No rashes or pruritus, there is no sacral edema present at this time. Neurological: Follows commands, without focal deficits laboratory and microbiology Laboratory Tests 09/11/25 04:18 Test 09/11/25 04:18 Range/Units Serum Glucose 114 H 74-106 mg/dL Microbiology Date/Time Source Procedure Growth Status 09/06/25 04:10 Blood Blood Culture - Final NO GROWTH AFTER 5 DAYS OF INCUBATION. Complete 08/22/25 12:52 Urine - Meng Port Urine Culture - Final Complete 08/22/25 08:06 Nose MRSA Screen - Final Complete Problem List/Assessment/Plan Problem List/Assessment/Plan Neurology Metabolic encephalopathy due to Uremic + sepsis with anxiety/agitation/ delirium # Sedated - Versed Discontinued - Propofol: Discontinued - Fentanyl discontinued Cardiovascular # Acute on chronic HFrEF # Pulmonary Edema - BNP 2515.41 --> 370 - Chest xray 08/20/2025: Moderate to severe pulmonary edema - Chest xray 08/21/2025: Cardiomegaly with pulmonary venous congestion and edema - Echocardiogram 01/14/2022: EF > 60%, Limited echo windows, mild TR, MR - Echocardiogram 10/22/2024: Technically good study sinus rhythm. Concentric LVH with left atrial enlargement. Mild aortic sclerosis. Mild thickening of the anterior and posterior mitral leaflets. Valves appear to be structurally normal. Left ventricular function is preserved at 60% with normal RV function. - Cardiology: Pending echo, considered R/LHC if inconclusive , discontinue bumex drip - Laxis 40 mg IV daily - Per nephrology: Start bumex drip + albumin and D5W 75 cc/hour -- Bumex drip discontinued by cardiology -- D5W has been discontinued due to resolution of hypernatremia - Chest Xray shows worsening, for which lasix 40 mg BID will be initiated - Lasix has been discontinued by Cardiology #Hypertension - Amlodipine 10 mg NG daily - Hydralazine 50 mg q 8 hours #CAD - R/L heart catheterization 08/30/2025: Left main, LAD and circumflex are patent, RCA patent, EF is 50-55% #Severe pulmonary hypertension - R/L heart catheterization 08/30/2025: RA pressure 18 mmHg, RV pressure 62/16 mmHg, pulmonary artery pressure 66/18 mmHg, capillary wedge pressure: 17 mmHg - Per cardiology: Sildenafil 20mg NG TID, originally 40 but this was lowered Respiratory # Ventilator - intubated (08/21/2025) - Extubated (09/07/2025) - Oxymizer 6 L - Ipratropium 0.2 med neb q 4 hours - Levalbuterol 1.25 mg med neb q 6 hours - Mucomyst 100 mg q 8 hours # Acute hypercapnic respiratory failure secondary to pulmonary edema # Acute COPD exacerbation - Methylprednisolone 40 mg IV, discontinued - Ipratropium medneb - Albuterol medneb - Ceftriaxone 1 g IV daily (discontinued) #Influenza A and B - Tamiflu 30 mg BID suspension, discontinued #Respiratory acidosis GI # Peptic ulcer prophylaxis -Pantoprazole 40 mg IV daily # Constipation - Lactulose 15 mL GT # Meng catheter # Possible Complicated UTI, present on admission - Ceftriaxone 1 g IV daily, discontinued Nephrology # COLE on CKD likely hemodynamically mediated/ VMN - NS 1000 cc bolus + 250 cc bolus in preparation for heart cath - NS 100cc/hr for 5 hours after procedure - Furosemide 100 mg IV after procedure, this was discontinued at the request of cardiology - Dialysis catheter placed by Dr. Bahena in right femoral region - Hemodialysis - IR has been consulted for placement of tunnel catheter #Hyperkalemia, resolved - Per nephrology: trial of forced diuresis to enhance potassium excretion, serial chemistry panels, IV bicarbonate infusion, and avoidance of IV contrast if able, currently without urgent indication for kidney replacement therapy - Bicarbonate drip has been dc'd - Per Cardiology: Zoran . #Acute metabolic acidosis #Hypernatremia, resolved - D5W, discontinued Infectious disease # Influenza A and B Pneumonia - Tamiflu 30 mg BID suspension, discontinued # Possible Complicated UTI, present on admission - Ceftriaxone 1 g IV daily, discontinued - Cefepime (09/05-) - Vancomycin (09/07-) Hem/onc #Thrombocytopenia, resolved - Monitor Endocrine #Type 2 diabetes mellitus - SSI -Accu cheks DVT prophylaxis: SCD PUD prophylaxis: Pantoprazole 40 mg IV daily Lines -L femoral Central line 08/20/2025 - discontinued on 08/29/2025 -L internal jugular central line 08/29/2025 09/08/2025 -Meng catheter 08/20/2025 -ET tube: 08/21/2025 (extubated 09/07/2025) - Mid line: 09/08/2025 - Femoral frank catheter: 08/30/2025- 09/10/2025 Nutrition: Nepro at a rate of 30 Drips during [facility] ventilation Versed Discontinued Fentanyl discontinued Propofol: Discontinued Nitroglycerin: Discontinued Nicardipine drip: Discontinued Bicarbonate drip: Discontinued Patient was extubated on 09/07/2025. IR has been consulted for placement of tunnel catheter. PT has been consulted for PT evaluation. Critical care time 50 minutes excluding procedure. Code status discussed greater than 20 minutes: Full CODE STATUS. Daughter, Susy, was updated of her mother's condition at bedside. Plan discussed with Dr. Martell Plan discussed with: Daughter, Other (RN) Dietary Evaluation Review Comments: Nutrition Recommendation: 1) EN Nepro Carbsteady @ 30ml/hr x 24hr (goal) along with Pro-stat 1 pk BID. Water flush 50ml Q6H if allowed, adjust PRN. TF at goal volume along with propofol & Pro-stat provide 1777 kcal (100%), 89 gm protein (83%), and 723 ml free water(including flush). 2) TPN if NPO >7 days 3) Monitor NPO status, lab values, weight trend, and I/O Expected Outcomes/Goals: Intake to meet >75% estimated needs Lab values to improve FU 2-3 days Visit Coding STANDARD RES Billing Provider: RAVI MARTELL MD Date of Service if different f: Sep 11, 2025 HARVEY MOORE RESIDENT Sep 11, 2025 11:51
[2025-09-11] MEDS: BUMETANIDE 2.5mg/10ml (0.25 mg/ml) INJ IV ONE (12:22)
--- NOTE | 2025-09-11 23:56 | DVHPN2 ---
Subjective DOS: 09/11/2025 Patient seen and examined at bedside. On supplemental oxygen Overnight events reviewed. Changes from previous H/P or p: No Changes Eyes: No Pain, No Vision change, No Conjunctivae inflammation, No Eyelid inflammation, No Other, No Redness ENT: No Ear pain, No Ear discharge, No Nose pain, No Nose discharge, No Nose congestion, No Mouth pain, No Mouth swelling, No Throat pain, No Throat swelling, No Other Cardiovascular: Chest Pain; No Palpitations, No Orthopnea, No Paroxysmal Noc. Dyspnea, No Edema, No Lt Headedness, No Other Respiratory: No Cough, No Dry; Shortness of breath; No SOB with excertion, No Wheezing, No Hemoptysis, No Pleuritic Pain, No Sputum; Other (SOB at rest) Gastrointestinal: No Nausea, No Vomiting, No Abdominal Pain, No Diarrhea, No Constipation, No Melena, No Hematochezia, No Other Genitourinary: No Dysuria, No Frequency, No Incontinence, No Hematuria, No Retention; Other (Schuster catheter in place) Musculoskeletal: other (Bilateral leg discoloration); No neck pain, No shoulder pain, No arm pain, No back pain, No hand pain, No leg pain, No foot pain Skin: No Rash, No Lesions, No Jaundice, No Bruising; Other (Left foot wound) Objective Vitals Vital Signs Date Time Temp Pulse Resp B/P (MAP) Pulse Ox O2 Delivery O2 Flow Rate FiO2 09/11/25 22:00 106 09/11/25 22:00 22 95 Oxymizer 8 N/A 09/11/25 21:14 150/122 09/11/25 08:00 97.9 97.9 Intake/Output Intake and Output 09/11/25 07:00 Intake Total 760.938 ml Output Total 600 ml Balance 160.938 ml Intake Oral 60 ml IV Total 70.938 ml Tube Feeding 630 ml Output Urine Total 600 ml Exam Gen.: Patient lying in bed in no apparent distress. On supplemental oxygen. Head: Normocephalic, atraumatic. Eyes: EOMI/PERRLA. Ears: Normal hearing. Normal anatomy. Neck/trachea: Trachea midline, supple. Nose: Normal external anatomy. Mouth: Moist mucous membranes. Chest: Decreased air entry bilaterally. No wheezing or rhonchi. Cardiovascular: Positive S1, positive S2. Regular rate and rhythm. Abdomen: Positive bowel sounds in all 4 quadrants. Soft, non-tender, non- distended. : Deferred. Rectal: Deferred. Skin: Warm, dry. Intact. Extremities: 2+ radial pulses bilaterally. No lower extremity edema. Neuro: Awake, alert, oriented x3. No gross motor or sensory deficits. Cranial nerves II through XII intact. Gait not assessed. Medications Current Medications Medications Dose Ordered Sig/Adri Route Start Time Stop Time Status Last Admin Dose Admin Multivit/Ca Carb/ B Cmplx/FA/Prenat 1 tab DAILY PO 08/21/25 10:00 09/11/25 10:30 1 TAB Diagnostic Test (Pha) 1 strip ACHS 08/21/25 07:00 09/11/25 17:00 1 STRIP Insulin Human Regular ACHS SC 08/21/25 07:00 09/11/25 12:03 2 UNITS Dextrose 50 ml UD PRN IV 08/20/25 23:15 Sodium Chloride 10 ml Q8HR IV 08/21/25 06:00 09/11/25 14:00 10 ML Docusate Sodium 100 mg BIDPRN PRN PO 08/20/25 23:15 Acetaminophen 650 mg Q6HP PRN PO 08/20/25 23:15 09/10/25 13:23 650 MG Nitroglycerin 0.4 mg Q5MINP PRN SL 08/20/25 23:15 Hold Pantoprazole Sodium 40 mg DAILY IV 08/22/25 10:00 09/11/25 10:30 40 MG Sildenafil Citrate 20 mg TID@08,14,20 NG 08/30/25 20:00 09/11/25 20:00 20 MG Amlodipine Besylate 10 mg DAILY PO 09/01/25 10:45 09/11/25 10:30 10 MG Enteral Nutritional Formula 1,000 ml 30ML/HR GT 09/02/25 18:45 09/08/25 11:48 1,000 ML Amino Acid Protein 30 ml Q6HR GT 09/03/25 00:00 09/11/25 12:04 30 ML Hydralazine HCl 50 mg Q8HR PO 09/05/25 22:00 09/11/25 16:26 50 MG Cefepime HCl 50 ml @ 12.5 mls/hr DAILY IV 09/06/25 10:00 09/11/25 10:30 12.5 MLS/HR Vancomycin HCl 0 ml @ 0 mls/hr PER PHARMACY IV 09/07/25 17:00 Levalbuterol HCl 1.25 mg Q6HR NEB 09/09/25 12:00 09/11/25 18:09 1.25 MG Acetylcysteine 100 mg Q6HR NEB 09/09/25 12:00 09/11/25 18:08 100 MG Ipratropium [place] 0.5 mg Q6HR NEB 09/09/25 12:00 09/11/25 18:09 0.5 MG Laboratory Results Laboratory Tests 09/11/25 04:18 Chemistry Test 09/11/25 04:18 Calcium Level 8.7 mg/dL (8.7-10.4) Urinalysis Test 08/22/25 11:43 08/22/25 12:52 09/06/25 04:00 Urine WBC Clumps Present /hpf (None Seen) Urine Hyaline Casts Mod /lpf (0 - 2) Urine Mucus Few (None Seen) Urine Protein/Creatinine Ratio 4.08 Urine Total Protein 204.4 mg/dL (1-14) H Urine Creatinine 52.93 mg/dL (30.0-125.0) Urine Sodium 114 mmol/L (40-220) Urine Color Light-orange (Yellow) Urine Clarity Turbid (Clear) H Urine pH 7.5 (5.0-9.0) Urine Specific [place] 1.019 (1.001-1.035) Urine Protein 3+ (Negative) H Urine Ketones 1+ (Negative) H Urine Blood 3+ /uL (Negative) H Urine Nitrite Negative (Negative) Urine Bilirubin Negative (Negative) Urine Urobilinogen Normal mg/dL (Negative) Urine Leukocyte Esterase Negative /uL (Negative) Urine RBC 1386 /hpf (0 - 4) Urine Microscopic WBC 9 /HPF (0-5) H Urine Squamous Epithelial Cells Few /hpf (<5) Urine Bacteria None seen /hpf (None Seen) Urine Glucose 2+ mg/dL (Normal) H Microbiology Microbiology Date/Time Source Procedure Growth Status 09/06/25 04:10 Blood Blood Culture - Final NO GROWTH AFTER 5 DAYS OF INCUBATION. Complete 08/22/25 12:52 Urine - Schuster Port Urine Culture - Final Complete 08/22/25 08:06 Nose MRSA Screen - Final Complete Assessment/Plan Assessment/Plan Impression: Acute hypoxic respiratory failure Acute hypercapnic respiratory failure Dependence on supplemental oxygen Pulmonary edema Pulmonary hypertension Metabolic acidosis Acute renal failure Morbid obesity Events: Patient remains on supplemental oxygen On 8 LPM Oxymizer Taper O2 as tolerated Altered mental status Patient has soft wrist restraints Benadryl 25 mg IVPx1 given for agitation yesterday. Hemodialysis per Nephrology Follow up Nephrology recs Continue antibiotics. WBC trending down at 15.4 K Continue bronchodilators Mucomyst Tube feeds for nutritional support Removed femoral Frank catheter - concern as cause of elevated WBC Monitor temperatures Head of bed elevation Aspiration precautions Physical therapy Pt received 1 dose of Bumex for diuresis Monitor renal function Monitor urine output Anxiolytic PRN Precedex as needed. IR consult for tunneled catheter was placed (09/09). Labs and imaging reviewed. Rest of plan as noted below. Plan: S/p extubation on 09/07/25 On supplemental oxygen Titrate to keep O2 sats above 90%. Continue antibiotics. Continue bronchodilators Mucomyst Tube feeds for nutritional support Pressors as necessary for hemodynamic support Titrate to keep mean arterial pressure greater than 65 mmHg. Hemodialysis per Nephrology Monitor renal function Monitor electrolytes. Supplement as necessary. Monitor ins and outs. Recommend diet and lifestyle modifications for weight reduction Obesity complicates all care GI prophylaxis. DVT prophylaxis. Prognosis: Poor given patient's multiple co-morbidities. Condition: Critical Rest of plan per hospitalist and other consultants. A total of 35 minutes of critical care time was spent reviewing the patient record, examining the patient, making a diagnostic and therapeutic plan, discussing this plan with the medical personnel, following up on diagnostic studies and following the patient for clinical stability excluding any and all procedures. At least 50% of this time was spent in direct, [id number] contact. Thank you, Dr. Mike Zheng, for allowing me to participate in this patient's care. Further recommendations will depend on the patient's clinical course. Please do not hesitate to contact me if you have any questions or concerns. This medical document was created using an electronic medical record system with [employer] system. Although these documentations are being carefully reviewed, there may still be some phonetic and typographical changes. The errors are purely typographical, due to imperfection on the software program, and do not reflect any compromise in the patient's medical care. Plan discussed with: Other (RN Donna) Visit Coding Pulmonary Billing Provider: RAVI SABA MD Date of Service if different f: Sep 11, 2025 Common Visit Codes: 63186-[id number] INP/OBS CARE(HIGH), 86029-[id number] CARE 30-74 MIN RAVI SABA MD Sep 11, 2025 23:56
[2025-09-12] VITALS (32 sets, daily range): BP systolic 122–181; BP diastolic 56–141; PULSE 83–110; RESP 7–24; TEMP 97.8–99.2; O2SAT 94–100
[2025-09-12 04:39] LABS: Hemoglobin 11.6 g/dL (12.2-16.2); Mean Corpuscular Volume 66.3 fL (80.0-100.0); Nucleated Red Blood Cells % 0.1 %
[2025-09-12 04:42] LABS: Hematocrit 40.5 % (36.0-46.0); Mean Corpuscular Hemoglobin 19.0 pg (28.0-32.0)
[2025-09-12 05:07] LABS: Anion Gap 14 (5-15); Calcium 9.1 mg/dL (8.7-10.4); Carbon Dioxide 24 mmol/L (20-31); Chloride 102 mmol/L (98-107); Potassium 4.2 mmol/L (3.5-5.1); Sodium 140 mmol/L (136-145)
[2025-09-12 05:13] LABS: BUN/Creatinine Ratio 8.3 (10.0-20.0)
[2025-09-12 05:14] LABS: Blood Urea Nitrogen 67 mg/dL (9-23); Glucose 110 mg/dL (74-106); Magnesium 2.4 mg/dL (1.6-2.6)
[2025-09-12] MEDS: SODIUM CHL 0.9% 1000 ML BAG XX ONE (08:00)
--- NOTE | 2025-09-12 14:10 | DVHPN2 ---
Progress Note - Dictate Date Seen: Sep 12, 2025 Has the PT tested + for MRSA If YES, has PT been informed?: No Medical Necessity Reason Pt with a Central, PICC or Fol: Yes The following are medically ne: Meng Catheter Reason for meng catheter: Strict I&O Subjective PT WELL KNOWN TO ME ORGANIC HEART DISEASE CAD HFrEF HTN 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 HYPERKALEMIA COPD HYPERLIPIDEMIA SIGN SX COMPLEX OF NOW WITH SOB CHEST PAIN RENAL FAILURE HYPERKALEMIA RESP FAILURE REQUIRING INTUBATION vital signs Vital Sign Date Time Temp Pulse Resp B/P (MAP) Pulse Ox O2 Delivery O2 Flow Rate FiO2 09/12/25 11:46 98 14 100 09/12/25 11:36 Oxymizer 6 N/A 09/12/25 11:00 150/61 (90) 09/12/25 07:00 98.0 98.0 Total Intake and Output 09/11/25 09/11/25 09/12/25 15:00 23:00 07:00 Intake Total 50 ml 420 ml Output Total 200 ml Balance 50 ml 220 ml medications Current Medications Medications Dose Ordered Sig/Adri Route Start Time Stop Time Status Last Admin Dose Admin Multivit/Ca Carb/ B Cmplx/FA/Prenat 1 tab DAILY PO 08/21/25 10:00 09/11/25 10:30 1 TAB Diagnostic Test (Pha) 1 strip ACHS 08/21/25 07:00 09/11/25 22:00 1 STRIP Insulin Human Regular ACHS SC 08/21/25 07:00 09/11/25 12:03 2 UNITS Dextrose 50 ml UD PRN IV 08/20/25 23:15 Sodium Chloride 10 ml Q8HR IV 08/21/25 06:00 09/12/25 06:00 10 ML Docusate Sodium 100 mg BIDPRN PRN PO 08/20/25 23:15 Acetaminophen 650 mg Q6HP PRN PO 08/20/25 23:15 09/10/25 13:23 650 MG Nitroglycerin 0.4 mg Q5MINP PRN SL 08/20/25 23:15 Hold Pantoprazole Sodium 40 mg DAILY IV 08/22/25 10:00 09/12/25 10:27 40 MG Sildenafil Citrate 20 mg TID@08,14,20 NG 08/30/25 20:00 09/11/25 20:00 20 MG Amlodipine Besylate 10 mg DAILY PO 09/01/25 10:45 09/11/25 10:30 10 MG Enteral Nutritional Formula 1,000 ml 30ML/HR GT 09/02/25 18:45 09/08/25 11:48 1,000 ML Amino Acid Protein 30 ml Q6HR GT 09/03/25 00:00 09/12/25 06:00 30 ML Hydralazine HCl 50 mg Q8HR PO 09/05/25 22:00 09/12/25 07:19 50 MG Cefepime HCl 50 ml @ 12.5 mls/hr DAILY IV 09/06/25 10:00 09/12/25 10:27 12.5 MLS/HR Vancomycin HCl 0 ml @ 0 mls/hr PER PHARMACY IV 09/07/25 17:00 Levalbuterol HCl 1.25 mg Q6HR NEB 09/09/25 12:00 09/12/25 11:36 1.25 MG Acetylcysteine 100 mg Q6HR NEB 09/09/25 12:00 09/12/25 11:36 100 MG Ipratropium [place] 0.5 mg Q6HR NEB 09/09/25 12:00 09/12/25 11:36 0.5 MG laboratory and microbiology Laboratory Tests 09/12/25 03:45 Test 09/12/25 03:45 Range/Units Serum Glucose 110 H 74-106 mg/dL Problem List ORGANIC HEART DISEASE CAD HFrEF HTN 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 HYPERKALEMIA COPD HYPERLIPIDEMIA SIGN SX COMPLEX OF NOW WITH SOB CHEST PAIN RENAL FAILURE HYPERKALEMIA RESP FAILURE REQUIRING INTUBATION Assessment/Plan CORRECT HYPERKALEMIA CONSIDER ECHO IF INCONCLUSIVE CONSIDER L/RHC BNP 370 ABX DC BUMEX START IVF AT 100 CC/HR ADD LOKELMA K+ CORRECTED REPEAT BNP WILL PROCEED WITH L/RHC ON FRIDAY POSITIVE FOR INFLUENZA A AND B POSITIVE START WEANING PT CON IV FLUID L/RHC NL CORONARIES EF >50% LVEDP 17mmHg RHC RA 15-27mmHg RV 62/17 PA`66/ 18 PCWP 17 SEVERE PUL HYPERTENSION START REVATIO 20 MG TID HEMODIALYSIS IN AM CHEST CXR STILL WITH INFILTRATIVE PROCESS START WEAN SEDATION WITH HD SIGNIFICANT IMPROVEMENT IN LUNG EFFUSION AND INFILTRATE STOP SEDATION WEAN PT OFF VENT OTHERWISE CONSIDER TRACH CHEST CXR APPEARS TO HAVE IMPROVED SIGNIFICANTLY COMPARED TO 08/29/25 LAST RIGHT SIDED EFFUSION SIGNIFICANT CLEARING OF INTERSTITIAL INFILTRATE OFF SEDATION EXTUBATED DIALYSIS UREMIC LEUKOCYTOSIS CXR ABG Dietary Evaluation Review Comments: Nutrition Recommendation: 1) EN Nepro Carbsteady @ 30ml/hr x 24hr (goal) along with Pro-stat 1 pk BID. Water flush 50ml Q6H if allowed, adjust PRN. TF at goal volume along with propofol & Pro-stat provide 1777 kcal (100%), 89 gm protein (83%), and 723 ml free water(including flush). 2) TPN if NPO >7 days 3) Monitor NPO status, lab values, weight trend, and I/O Expected Outcomes/Goals: Intake to meet >75% estimated needs Lab values to improve FU 2-3 days Plan discussed with: Patient, Daughter Critical Care Time(min): 35 RAMIN GARCIA MD Sep 12, 2025 14:10
--- NOTE | 2025-09-12 15:17 | DVHPN2 ---
Progress Note Date Seen: Sep 12, 2025 Has the PT tested + for MRSA If YES, has PT been informed?: No Medical Necessity Reason Pt with a Central, PICC or Fol: Yes The following are medically ne: Meng Catheter Reason for meng catheter: Strict I&O Subjective Review of Systems: Deferred Objective vital signs Vital Sign Date Time Temp Pulse Resp B/P (MAP) Pulse Ox O2 Delivery O2 Flow Rate FiO2 09/12/25 11:46 98 14 100 09/12/25 11:36 Oxymizer 6 N/A 09/12/25 11:00 150/61 (90) 09/12/25 07:00 98.0 98.0 Total Intake and Output 09/11/25 09/11/25 09/12/25 15:00 23:00 07:00 Intake Total 50 ml 420 ml Output Total 200 ml Balance 50 ml 220 ml medications Current Medications Medications Dose Ordered Sig/Adri Route Start Time Stop Time Status Last Admin Dose Admin Multivit/Ca Carb/ B Cmplx/FA/Prenat 1 tab DAILY PO 08/21/25 10:00 09/11/25 10:30 1 TAB Diagnostic Test (Pha) 1 strip ACHS 08/21/25 07:00 09/11/25 22:00 1 STRIP Insulin Human Regular ACHS SC 08/21/25 07:00 09/11/25 12:03 2 UNITS Dextrose 50 ml UD PRN IV 08/20/25 23:15 Sodium Chloride 10 ml Q8HR IV 08/21/25 06:00 09/12/25 06:00 10 ML Docusate Sodium 100 mg BIDPRN PRN PO 08/20/25 23:15 Acetaminophen 650 mg Q6HP PRN PO 08/20/25 23:15 09/10/25 13:23 650 MG Nitroglycerin 0.4 mg Q5MINP PRN SL 08/20/25 23:15 Hold Pantoprazole Sodium 40 mg DAILY IV 08/22/25 10:00 09/12/25 10:27 40 MG Sildenafil Citrate 20 mg TID@08,14,20 NG 08/30/25 20:00 09/11/25 20:00 20 MG Amlodipine Besylate 10 mg DAILY PO 09/01/25 10:45 09/11/25 10:30 10 MG Enteral Nutritional Formula 1,000 ml 30ML/HR GT 09/02/25 18:45 09/08/25 11:48 1,000 ML Amino Acid Protein 30 ml Q6HR GT 09/03/25 00:00 09/12/25 06:00 30 ML Hydralazine HCl 50 mg Q8HR PO 09/05/25 22:00 09/12/25 07:19 50 MG Cefepime HCl 50 ml @ 12.5 mls/hr DAILY IV 09/06/25 10:00 09/12/25 10:27 12.5 MLS/HR Vancomycin HCl 0 ml @ 0 mls/hr PER PHARMACY IV 09/07/25 17:00 Levalbuterol HCl 1.25 mg Q6HR NEB 09/09/25 12:00 09/12/25 11:36 1.25 MG Acetylcysteine 100 mg Q6HR NEB 09/09/25 12:00 09/12/25 11:36 100 MG Ipratropium [place] 0.5 mg Q6HR NEB 09/09/25 12:00 09/12/25 11:36 0.5 MG Examination: GENERAL:Abnormal, LUNGS:Abnormal, SKIN:Abnormal laboratory and microbiology Laboratory Tests 09/12/25 03:45 Test 09/12/25 03:45 Range/Units Serum Glucose 110 H 74-106 mg/dL Microbiology Date/Time Source Procedure Growth Status 09/06/25 04:10 Blood Blood Culture - Final NO GROWTH AFTER 5 DAYS OF INCUBATION. Complete 08/22/25 12:52 Urine - Meng Port Urine Culture - Final Complete 08/22/25 08:06 Nose MRSA Screen - Final Complete Problem List/Assessment/Plan Problem List/Assessment/Plan Acute kidney injury superimposed Chronic Kidney Disease stage III B secondary hemodynamic mediated, ATN Acute hypoxic respiratory failure, patient intubated on ventilator Community-acquired pneumonia , influenza Diabetes mellitus type 2 Nephrotic syndrome secondary to underlying diabetic nephropathy hypertension Hd treatment will be scheduled after new catheter is placed Per radiology we will confirm negative blood cultures prior to tunneled dialysis catheter placement. will have new Frank in the interim tube feeding monitor fluid balances Strict I&Os kidney ultrasound reported within normal limit IV antibiotics Avoid nephrotoxic medications Plan discussed with: Other Dietary Evaluation Review Comments: Nutrition Recommendation: 1) EN Nepro Carbsteady @ 30ml/hr x 24hr (goal) along with Pro-stat 1 pk BID. Water flush 50ml Q6H if allowed, adjust PRN. TF at goal volume along with propofol & Pro-stat provide 1777 kcal (100%), 89 gm protein (83%), and 723 ml free water(including flush). 2) TPN if NPO >7 days 3) Monitor NPO status, lab values, weight trend, and I/O Expected Outcomes/Goals: Intake to meet >75% estimated needs Lab values to improve FU 2-3 days KELLY DIAZ MD Sep 12, 2025 15:16
[2025-09-12] MEDS ORDERED: VANCOMYCIN 500mg/100mL 100 ML IV ONE (16:00)
[2025-09-12] MEDS: LIDOCAINE 1% (LOCAL ANESTH.) PF 5ml SDV ONE (16:11)
[2025-09-12] MEDS: LORazepam 2MG/ML-1ML VIAL ONE (16:11)
[2025-09-12] MEDS: LIDOCAINE 1% HCL (LOCAL ANESTH.) INJ 20ML MDV ID ONE (16:15)
[2025-09-12] MEDS ORDERED: VANCOMYCIN PER PHARMACY 0 MG IV SCH (16:15)
[2025-09-12] MEDS: MORPHINE SULFATE 4 MG/ML SYR/VIAL ONE (16:24)
--- NOTE | 2025-09-12 17:24 | DVHPNRES ---
Progress Note Date Seen: Sep 12, 2025 Resident Creating Document: URIAH NOBLE RESIDENT Has the PT tested + for MRSA If YES, has PT been informed?: No Medical Necessity Reason Pt with a Central, PICC or Fol: Yes The following are medically ne: Meng Catheter Reason for meng catheter: Strict I&O Subjective Review of Systems Ms. Marin is a 75-year-old female with prior medical history of HFpEF, COPD with home oxygen, gout, anxiety, type 2 diabetes mellitus, hyperlipidemia, hypertension, and PAD, who bas brought to the [facility] by EMS with chief complaint of shortness of breath and back and midsternal non-radiating chest pain. Daughter reported progressively worsening shortness of breath for the last 2 weeks associated with general malaise and orthopnea, describing very wet coughing sounds when her mother lays flat. She states that her mother began complaining of worsening shortness of breath associated with non-radiating midsternal chest pain which prompted her to call EMS. Per record, on seen she was saturating 74%, she was placed on CPAP with inspiration increasing to 88% on route to the emergency department. On evaluation in the ED, patient was afebrile, slightly hypertensive, and tachypneic, saturating 81% which she was placed on BiPAP. Initial labs significant for leukocytosis of 11.3, with elevated hematocrit, and thrombocytopenia, hyperkalemia, creatinine 4.09, BUN 46, and ABG significant for respiratory acidosis, troponins are negative, BNP 2515.41. Serology was positive for influenza A and B. Chest x-ray showed moderate to severe pulmonary edema. Patient further deteriorated requiring intubation for respiratory distress. She was started on IV Lasix, IV methylprednisolone, hyperkalemia protocol, bicarbonate drip, and nitroglycerin drip. Prior Medical history: CHF, COPD, gout, anxiety, type 2 diabetes mellitus, hyperlipidemia, hypertension, PAD, pulmonary hypertension Previous surgical history: Left leg stenting for PAD Allergies: Denies Social history: Daughter reports the patient smokes cigarettes with cessation approximately 20 years ago Home medications: Allopurinol, insulin, gabapentin, simvastatin, tadalafil 09/12/25: The patient was seen at bedside today. Patient appeared agitated. Patient has tachycardia, tachypnea. Daughter on bedside, reports that the patient is able to recognize her. Although since the patient is non-verbal, unable to obtain any history from the patient, Daughter reports baseline- patient is able to communicate and function mostly independently at home. She is status post extubation (09/07/25), on 6 L oxymizer. IR on board, tunneled catheter pending set of negative blood cultures in context of sepsis. We will obtain a temporary hemodialysis line considering the creatinine trending up. Will replace meng cathter today. We will do a trial of swallow evaluation when feasible. Objective vital signs Vital Sign Date Time Temp Pulse Resp B/P (MAP) Pulse Ox O2 Delivery O2 Flow Rate FiO2 09/12/25 15:00 90 16 151/62 (91) 100 09/12/25 14:00 Oxymizer 6 N/A 09/12/25 07:00 98.0 98.0 Total Intake and Output 09/11/25 09/11/25 09/12/25 15:00 23:00 07:00 Intake Total 50 ml 420 ml Output Total 200 ml Balance 50 ml 220 ml medications Current Medications Medications Dose Ordered Sig/Adri Route Start Time Stop Time Status Last Admin Dose Admin Multivit/Ca Carb/ B Cmplx/FA/Prenat 1 tab DAILY PO 08/21/25 10:00 09/11/25 10:30 1 TAB Diagnostic Test (Pha) 1 strip ACHS 08/21/25 07:00 09/11/25 22:00 1 STRIP Insulin Human Regular ACHS SC 08/21/25 07:00 09/11/25 12:03 2 UNITS Dextrose 50 ml UD PRN IV 08/20/25 23:15 Sodium Chloride 10 ml Q8HR IV 08/21/25 06:00 09/12/25 14:00 10 ML Docusate Sodium 100 mg BIDPRN PRN PO 08/20/25 23:15 Acetaminophen 650 mg Q6HP PRN PO 08/20/25 23:15 09/10/25 13:23 650 MG Nitroglycerin 0.4 mg Q5MINP PRN SL 08/20/25 23:15 Hold Pantoprazole Sodium 40 mg DAILY IV 08/22/25 10:00 09/12/25 10:27 40 MG Sildenafil Citrate 20 mg TID@08,14,20 NG 08/30/25 20:00 09/11/25 20:00 20 MG Amlodipine Besylate 10 mg DAILY PO 09/01/25 10:45 09/11/25 10:30 10 MG Enteral Nutritional Formula 1,000 ml 30ML/HR GT 09/02/25 18:45 09/08/25 11:48 1,000 ML Amino Acid Protein 30 ml Q6HR GT 09/03/25 00:00 09/12/25 06:00 30 ML Hydralazine HCl 50 mg Q8HR PO 09/05/25 22:00 09/12/25 07:19 50 MG Levalbuterol HCl 1.25 mg Q6HR NEB 09/09/25 12:00 09/12/25 11:36 1.25 MG Acetylcysteine 100 mg Q6HR NEB 09/09/25 12:00 09/12/25 11:36 100 MG Ipratropium [place] 0.5 mg Q6HR NEB 09/09/25 12:00 09/12/25 11:36 0.5 MG Piperacillin Sod/ Tazobactam Sod 100 ml @ 25 mls/hr Q12HR IV 09/12/25 22:00 Vancomycin HCl 0 ml @ 0 mls/hr PER PHARMACY IV 09/12/25 16:15 UNV Examination General: Patient is agitated, non-verbal, not following commands. HEENT: Dry mucous membranes Respiratory/pulmonary: Grunting heard bilaterally. Cardiovascular: Normal heart sounds S1 and S2 with no associated murmurs Abdomen: Abdomen nondistended, there is no pain to palpation in any of the abdominal quadrants, no palpable masses. Extremities: Warm to touch. Dry crusty planter surface of feet. Peripheral Pulses: 3+ Radial (R). 3+ Radial (L). 3+ Dorsalis pedis (R). 3+ Dorsalis pedis(L) Skin: No rashes or pruritus, there is no sacral edema present at this time. laboratory and microbiology Laboratory Tests 09/12/25 03:45 Test 09/12/25 03:45 Range/Units Serum Glucose 110 H 74-106 mg/dL Microbiology Date/Time Source Procedure Growth Status 09/06/25 04:10 Blood Blood Culture - Final NO GROWTH AFTER 5 DAYS OF INCUBATION. Complete 08/22/25 12:52 Urine - Meng Port Urine Culture - Final Complete 08/22/25 08:06 Nose MRSA Screen - Final Complete Problem List/Assessment/Plan Problem List/Assessment/Plan Neurology Sedation/analgesia Versed Discontinued Propofol: Discontinued Fentanyl discontinued # Metabolic encephalopathy due to Uremia/ Sepsis with anxiety/agitation/ delirium Creatinine continues to trend up. IR deferred tunneled catheter placement for now. Temporary hemodialysis catheter inserted Cardiovascular # Acute on chronic HFpEF (improving) # Pulmonary Edema BNP normalized; OA Chest xray 08/20/2025: Moderate to severe pulmonary edema Chest xray 08/21/2025: Cardiomegaly with pulmonary venous congestion and edema Echocardiogram 01/14/2022: EF > 60%, Limited echo windows, mild TR, MR Echocardiogram 10/22/2024: Technically good study sinus rhythm. Concentric LVH with left atrial enlargement. Mild aortic sclerosis. Mild thickening of the anterior and posterior mitral leaflets. Valves appear to be structurally normal. Left ventricular function is preserved at 60% with normal RV function. Cardiology: Pending echo, considered R/LHC if inconclusive , discontinue bumex drip Per nephrology: Trial of bumex + albumin and D5W 75 cc/hour. Bumex drip discontinued by cardiology. D5W has been discontinued due to resolution of hypernatremia Lasix discontinued Repeat CXR #Hypertension Continue Amlodipine 10 mg NG daily, Hydralazine 50 mg q 8 hours #CAD Coronary angiogram done on 08/30/2025: Left main, LAD and circumflex are patent, RCA patent, EF is 50-55% #Severe pulmonary hypertension R/L heart catheterization 08/30/2025: RA pressure 18 mmHg, RV pressure 62/16 mmHg, pulmonary artery pressure 66/18 mmHg, capillary wedge pressure: 17 mmHg Per cardiology: Sildenafil 20mg NG TID, testing testing 40 but this was lowered Respiratory Ventilator Intubated (08/21/2025) Extubated (09/07/2025) # Acute hypercapnic respiratory failure secondary to pulmonary edema s/p Extubation # Acute hypoxic respiratory failure # Respiratory acidosis (resolving) On 6 L oxygen supplementation with Oxymizer Med neb treatment with Ipratropium, levalbuterol Mucomyst 100 mg q 8 hours PT evaluation requested Repeat CXR # Acute COPD exacerbation Methylprednisolone 40 mg IV, discontinued Medneb treatment with Ipratropium medneb, Albuterol medneb Ceftriaxone 1 g IV daily (discontinued) # Community acquired pneumonia due to Gram-positive/Gram-negative pneumonia/ Influenza A and B Tamiflu 30 mg BID suspension, discontinued Continue Zosyn, vancomycin Repeat chest x-ray Gastrointestinal # Peptic ulcer prophylaxis Pantoprazole 40 mg IV daily NG tube clogged; we will do a trial of swallow evaluation # Constipation Lactulose 15 mL Genitourinary Replace Meng catheter (09/12/25) # Possible Complicated UTI, resolving UA positive for UTI Ceftriaxone 1 g IV daily, discontinued Switched cefepime to vanc and Zosyn Nephrology # COLE on CKD likely hemodynamically mediated/ VMN Supportive management with IV fluids given Nephrology on board, recommended hemodialysis Patient initially had dialysis catheter in the right femoral region, removed. Interventional radiology on board, tunneled catheter placement deferred till confirmation with negative blood cultures. Kidney ultrasound shows no acute abnormality Nephrology on board, recommended hemodialysis, richy Marie in the interim. Continue tube feeding, monitor fluid balances, strict I&Os Temporary hemodialysis catheter inserted # Hyperkalemia, resolved Per nephrology: trial of forced diuresis to enhance potassium excretion, serial chemistry panels, IV bicarbonate infusion, and avoidance of IV contrast if able. # Acute metabolic acidosis # Nephrotic syndrome secondary to underlying diabetic nephropathy, possible # Hypernatremia, resolved D5W, discontinued Infectious disease # Influenza A and B Pneumonia Serology positive for Influenza A & B Tamiflu 30 mg BID suspension, discontinued # Possible Complicated UTI, present on admission Ceftriaxone 1 g IV daily, discontinued Discontinued cefepime; continue vancomycin, Zosyn Hem/oncology # Thrombocytopenia, resolved # Microcytic, hypochromic anemia Monitor CBC Endocrine # Type 2 diabetes mellitus Mild Sliding scale Monitor blood glucose # Class 1 Obesity BMI 30 DVT prophylaxis: Heparin 5000 U BID PUD prophylaxis: Pantoprazole 40 mg IV daily Lines: - L femoral Central line 08/20/2025 - discontinued on 08/29/2025 - L internal jugular central line 08/29/2025 09/08/2025 - Meng catheter 08/20/2025 - ET tube: 08/21/2025 (extubated 09/07/2025) - Femoral frank catheter: 08/30/2025- 09/10/2025 - Mid line: 09/08/2025 - Frank catheter 09/12/25 Nutrition: Holding off Nepro Critical care time 42 minutes excluding procedure. Goals of care discussed with nurses, Susy Ohara at bedside. Plan discussed with Dr. Lopez, Plan discussed with: Daughter, Other (nurses) My Orders My Orders Orders - URIAH NOBLE RESIDENT Procedure Category Date Status Time Chest Portable XY 09/12/25 Logged 15:42 Pt Request For Service PT 09/12/25 Logged 15:42 Piperacillin-Tazob PHA 09/12/25 In Process 3.375gm (Zosyn 3.375g 22:00 Vancomycin Per PHA 09/12/25 Pending Pharmacy 16:15 Dietary Evaluation Review Comments: Nutrition Recommendation: 1) EN Nepro Carbsteady @ 30ml/hr x 24hr (goal) along with Pro-stat 1 pk BID. Water flush 50ml Q6H if allowed, adjust PRN. TF at goal volume along with propofol & Pro-stat provide 1777 kcal (100%), 89 gm protein (83%), and 723 ml free water(including flush). 2) TPN if NPO >7 days 3) Monitor NPO status, lab values, weight trend, and I/O Expected Outcomes/Goals: Intake to meet >75% estimated needs Lab values to improve FU 2-3 days Date of Service: Sep 12, 2025 Billing Provider: PATRICIA LOPEZ MD Common Visit Codes: [id number] CARE 30-74 MIN URIAH NOBLE RESIDENT Sep 12, 2025 17:24 PATRICIA LOPEZ MD Sep 13, 2025 13:31
[2025-09-12] MEDS: VANCOMYCIN 500mg/100mL 100 ML IV ONE (18:00)
[2025-09-12] MEDS: LORazepam 2MG/ML-1ML VIAL IV ONE (18:03)
--- NOTE | 2025-09-12 18:16 | DVHNC2 ---
KATIE MCKINNEY RESIDENT 09/12/25 1816: Procedure - Procedure: Right internal jugular hemodialysis catheter placement Indication: Acute renal failure/need for emergent hemodialysis Strategic Planning Director: Supervising physician: Consent: Informed consent was obtained from the patient's surrogate decision maker after discussion of the risks, benefits, alternatives including bleeding, infection, arterial puncture, pneumothorax, air embolism and catheter malfunction. The patient was placed in the supine position with slight Trendelenburg. The right internal jugular vein was identified using real-time ultrasound guidance. The skin was prepped and draped in a sterile fashion using chlorhexidine. Under ultrasound guidance, the right internal jugular vein was cannulated using Seldinger technique. Venous placement was confirmed by dark nonpulsatile blood return. A guidewire was advanced without resistance. A dilator was used and a temporary, and a temporary hemodialysis catheter was advanced over the guidewire into appropriate position. The guidewire was removed intact. All catheter ports aspirated and flushed easily with normal saline. The catheter was secured with sutures and a sterile dressing was applied. Estimated blood loss less than 5 mL. Postprocedural x-ray showed hemodialysis catheter in appropriate position with the tip terminating in SVC. PATRICIA LOPEZ MD 09/18/25 1103: Date of Service: Sep 12, 2025 Billing Provider: PATRICIA LOPEZ MD Common Visit Codes: PROCEDURE ONLY Procedure Codes: [id number] NON-TUNNEL CV CATH KATIE MCKINNEY Sep 12, 2025 18:16 PATRICIA LOPEZ MD Sep 18, 2025 11:03
--- NOTE | 2025-09-12 18:52 | DVH ---
CHEST RADIOGRAPH INDICATION: PNA TECHNIQUE: Single frontal view of the chest was obtained COMPARISON: XY CHEST XRAY 1 VIEW on DOS: 09/08/25, XY CHEST XRAY 1 VIEW on DOS: 09/07/25, XY CHEST XRAY 1 VIEW on DOS: 09/06/25 FINDINGS: Lines and Tubes: Central line from the right internal jugular vein is noted. It appears to be a Frank catheter. Lungs: Improved pulmonary vascular congestion is noted throughout both lung almanzar. Persistent cardiomegaly is noted Pleura: No effusion. No pneumothorax. Cardiomediastinal contours: Persistent cardiomegaly Bones: No acute osseous abnormality. IMPRESSION: 1. Decreased pulmonary vascular congestion bilaterally may represent decreased fluid load. 2. Cardiomegaly
[2025-09-12] MEDS: hydrALAZINE HCL 20 MG/ML VL IV PRN (21:00)
[2025-09-12] MEDS: HEPARIN SODIUM (PORCINE) 5000 UNITS/ML 1ML VIAL SC SCH (22:07)
[2025-09-12] MEDS: PIPERACILLIN-TAZOB 3.375GM 100 ML IV SCH (22:07)
[2025-09-13] VITALS (34 sets, daily range): BP systolic 90–177; BP diastolic 46–123; PULSE 88–110; RESP 10–30; TEMP 98–99.6; O2SAT 83–100
[2025-09-13 04:27] LABS: Hemoglobin 11.6 g/dL (12.2-16.2)
[2025-09-13 04:32] LABS: Anion Gap 15 (5-15); Carbon Dioxide 25 mmol/L (20-31); Chloride 104 mmol/L (98-107); Potassium 4.3 mmol/L (3.5-5.1); Sodium 144 mmol/L (136-145)
[2025-09-13 04:33] LABS: Calcium 9.1 mg/dL (8.7-10.4)
[2025-09-13 04:35] LABS: Hematocrit 40.0 % (36.0-46.0); Mean Corpuscular Hemoglobin 19.1 pg (28.0-32.0); Mean Corpuscular Volume 66.1 fL (80.0-100.0); Nucleated Red Blood Cells % 0.2 %
[2025-09-13 04:38] LABS: BUN/Creatinine Ratio 9.4 (10.0-20.0); Glucose 91 mg/dL (74-106)
[2025-09-13 04:50] LABS: Blood Urea Nitrogen 81 mg/dL (9-23)
[2025-09-13] MEDS: ALBUMIN 25% 100 ML IV ONE (07:00)
[2025-09-13] MEDS: SODIUM CHL 0.9% 1000 ML BAG XX ONE (07:00)
--- NOTE | 2025-09-13 12:06 | DVHPN2 ---
Progress Note Date Seen: Sep 13, 2025 Has the PT tested + for MRSA If YES, has PT been informed?: No Medical Necessity Reason Pt with a Central, PICC or Fol: Yes The following are medically ne: Meng Catheter Reason for meng catheter: Strict I&O Objective vital signs Vital Sign Date Time Temp Pulse Resp B/P (MAP) Pulse Ox O2 Delivery O2 Flow Rate FiO2 09/13/25 11:51 107 20 96 09/13/25 11:40 Nasal Cannula 3.0 09/13/25 11:40 N/A 09/13/25 10:49 170/72 09/13/25 00:02 98.8 98.8 Total Intake and Output 09/12/25 09/12/25 09/13/25 14:59 22:59 06:59 Output Total 300 ml 200 ml Balance -300 ml -200 ml medications Current Medications Medications Dose Ordered Sig/Adri Route Start Time Stop Time Status Last Admin Dose Admin Multivit/Ca Carb/ B Cmplx/FA/Prenat 1 tab DAILY PO 08/21/25 10:00 09/11/25 10:30 1 TAB Diagnostic Test (Pha) 1 strip ACHS 08/21/25 07:00 09/13/25 06:39 1 STRIP Insulin Human Regular ACHS SC 08/21/25 07:00 09/11/25 12:03 2 UNITS Dextrose 50 ml UD PRN IV 08/20/25 23:15 Sodium Chloride 10 ml Q8HR IV 08/21/25 06:00 09/13/25 06:00 10 ML Docusate Sodium 100 mg BIDPRN PRN PO 08/20/25 23:15 Acetaminophen 650 mg Q6HP PRN PO 08/20/25 23:15 09/10/25 13:23 650 MG Nitroglycerin 0.4 mg Q5MINP PRN SL 08/20/25 23:15 Hold Pantoprazole Sodium 40 mg DAILY IV 08/22/25 10:00 09/13/25 10:45 40 MG Sildenafil Citrate 20 mg TID@08,14,20 NG 08/30/25 20:00 09/11/25 20:00 20 MG Amlodipine Besylate 10 mg DAILY PO 09/01/25 10:45 09/11/25 10:30 10 MG Enteral Nutritional Formula 1,000 ml 30ML/HR GT 09/02/25 18:45 09/08/25 11:48 1,000 ML Amino Acid Protein 30 ml Q6HR GT 09/03/25 00:00 09/12/25 06:00 30 ML Hydralazine HCl 50 mg Q8HR PO 09/05/25 22:00 09/12/25 07:19 50 MG Levalbuterol HCl 1.25 mg Q6HR NEB 09/09/25 12:00 09/13/25 11:32 1.25 MG Acetylcysteine 100 mg Q6HR NEB 09/09/25 12:00 09/13/25 11:32 100 MG Ipratropium [place] 0.5 mg Q6HR NEB 09/09/25 12:00 09/13/25 11:32 0.5 MG Piperacillin Sod/ Tazobactam Sod 100 ml @ 25 mls/hr Q12HR IV 09/12/25 22:00 09/13/25 10:46 25 MLS/HR Vancomycin HCl 0 ml @ 0 mls/hr PER PHARMACY IV 09/12/25 16:15 Hydralazine HCl 10 mg Q6HP PRN IV 09/12/25 20:00 09/13/25 10:49 10 MG Heparin Sodium (Porcine) 5,000 units Q12HR SC 09/12/25 22:00 09/13/25 10:45 5,000 UNITS Albumin Human 100 ml @ 100 mls/hr PRN PRN IV 09/13/25 07:00 Examination: GENERAL:Abnormal, CVS:Normal, ABDOMEN:Normal, SKIN:Abnormal laboratory and microbiology Laboratory Tests 09/13/25 03:58 Test 09/13/25 03:58 Range/Units Serum Glucose 91 74-106 mg/dL Microbiology Date/Time Source Procedure Growth Status 09/06/25 04:10 Blood Blood Culture - Final NO GROWTH AFTER 5 DAYS OF INCUBATION. Complete 08/22/25 12:52 Urine - [place] Urine Culture - Final Complete 08/22/25 08:06 Nose MRSA Screen - Final Complete Problem List/Assessment/Plan Problem List/Assessment/Plan Acute kidney injury superimposed Chronic Kidney Disease stage III B secondary hemodynamic mediated, ATN Acute hypoxic respiratory failure, patient intubated on ventilator extubated Community-acquired pneumonia , influenza Diabetes mellitus type 2 Nephrotic syndrome secondary to underlying diabetic nephropathy hypertension Hemodialysis treatment today patient did not tolerate fluid removal fluid given back to patient is appeared hypo euvolemic richy Marie in the interim dialysis, tunneled catheter will be placed after negative blood cultures and improve WBC count tube feeding on hold as patient failed swallow study Currently patient not tolerating p.o. blood pressure elevated in the setting of lack of oral medications recommend NG tube catheter placement if able and nutritional considerations monitor fluid balances Strict I&Os kidney ultrasound reported within normal limit IV antibiotics Avoid nephrotoxic medications Plan discussed with: Patient My Orders My Orders Orders - KELLY DIAZ MD Procedure Category Date Status Time Hemodialysis Orders ORDERS 09/13/25 Transmitted 07:00 Dialysis Nursing CHASTITY 09/13/25 In Process Message 07:00 Document Fluid Input CHASTITY 09/13/25 In Process And Outpu 07:00 Albumin 25% (Albutein) PHA 09/13/25 In Process 07:00 Dietary Evaluation Review Comments: Nutrition Recommendation: 1) EN Nepro Carbsteady @ 30ml/hr x 24hr (goal) along with Pro-stat 1 pk BID. Water flush 50ml Q6H if allowed, adjust PRN. TF at goal volume along with propofol & Pro-stat provide 1777 kcal (100%), 89 gm protein (83%), and 723 ml free water(including flush). 2) TPN if NPO >7 days 3) Monitor NPO status, lab values, weight trend, and I/O Expected Outcomes/Goals: Intake to meet >75% estimated needs Lab values to improve FU 2-3 days KELLY DIAZ MD Sep 13, 2025 12:06
[2025-09-13] MEDS: SODIUM CHLORIDE 0.9% 500 ML IV ONE (15:15)
[2025-09-13] MEDS: LORazepam 2MG/ML-1ML VIAL IV ONE (17:04)
--- NOTE | 2025-09-13 17:12 | DVHPNRES ---
Progress Note Date Seen: Sep 13, 2025 Resident Creating Document: URIAH NOBLE RESIDENT Has the PT tested + for MRSA If YES, has PT been informed?: No Medical Necessity Reason Pt with a Central, PICC or Fol: Yes The following are medically ne: Meng Catheter Reason for meng catheter: Strict I&O Subjective Review of Systems Ms. Marin is a 75-year-old female with prior medical history of HFpEF, COPD with home oxygen, gout, anxiety, type 2 diabetes mellitus, hyperlipidemia, hypertension, and PAD, who bas brought to the [facility] by EMS with chief complaint of shortness of breath and back and midsternal non-radiating chest pain. Daughter reported progressively worsening shortness of breath for the last 2 weeks associated with general malaise and orthopnea, describing very wet coughing sounds when her mother lays flat. She states that her mother began complaining of worsening shortness of breath associated with non-radiating midsternal chest pain which prompted her to call EMS. Per record, on seen she was saturating 74%, she was placed on CPAP with inspiration increasing to 88% on route to the emergency department. On evaluation in the ED, patient was afebrile, slightly hypertensive, and tachypneic, saturating 81% which she was placed on BiPAP. Initial labs significant for leukocytosis of 11.3, with elevated hematocrit, and thrombocytopenia, hyperkalemia, creatinine 4.09, BUN 46, and ABG significant for respiratory acidosis, troponins are negative, BNP 2515.41. Serology was positive for influenza A and B. Chest x-ray showed moderate to severe pulmonary edema. Patient further deteriorated requiring intubation for respiratory distress. She was started on IV Lasix, IV methylprednisolone, hyperkalemia protocol, bicarbonate drip, and nitroglycerin drip. Prior Medical history: CHF, COPD, gout, anxiety, type 2 diabetes mellitus, hyperlipidemia, hypertension, PAD, pulmonary hypertension Previous surgical history: Left leg stenting for PAD Allergies: Denies Social history: Daughter reports the patient smokes cigarettes with cessation approximately 20 years ago Home medications: Allopurinol, insulin, gabapentin, simvastatin, tadalafil 09/12/25: The patient was seen at bedside. Patient appeared agitated. Patient has tachycardia, tachypnea. Daughter on bedside, reports that the patient is able to recognize her. Although since the patient is non-verbal, unable to obtain any history from the patient, Daughter reports baseline- patient is able to communicate and function mostly independently at home. She is status post extubation (09/07/25), on 6 L oxymizer. IR on board, tunneled catheter pending set of negative blood cultures in context of sepsis. We will obtain a temporary hemodialysis line considering the creatinine trending up. Will replace Meng catheter today. We will do a trial of swallow evaluation when feasible. 09/13/25: The patient was seen at bedside. Patient continues to remain agitated, failed swallow evaluation and NG tube placement owing to non-cooperation. She underwent placement of temporary dialysis catheter & replacement of meng yesterday. Yesterday we discontinued cefepime, patient currently on Vancomycin & Zosyn. Patient underwent hemodialysis today. Her p.o blood pressure medications are on hold; currently IV hydralazine PRN. Her WBC count came down to 14.7 today. CXR shows reduced pulmonary vascular congestion from the baseline. We will re-attempt NG tube placement today with Ativan. Objective vital signs Vital Sign Date Time Temp Pulse Resp B/P (MAP) Pulse Ox O2 Delivery O2 Flow Rate FiO2 09/13/25 16:00 28 94 Nasal Cannula* 4 36 09/13/25 16:00 98 09/13/25 14:00 159/60 (93) 09/13/25 12:00 98.6 98.6 Total Intake and Output 09/12/25 09/12/25 09/13/25 15:00 23:00 07:00 Output Total 300 ml 200 ml Balance -300 ml -200 ml medications Current Medications Medications Dose Ordered Sig/Adri Route Start Time Stop Time Status Last Admin Dose Admin Multivit/Ca Carb/ B Cmplx/FA/Prenat 1 tab DAILY PO 08/21/25 10:00 09/11/25 10:30 1 TAB Diagnostic Test (Pha) 1 strip ACHS 08/21/25 07:00 09/13/25 11:30 1 STRIP Insulin Human Regular ACHS SC 08/21/25 07:00 09/11/25 12:03 2 UNITS Dextrose 50 ml UD PRN IV 08/20/25 23:15 Sodium Chloride 10 ml Q8HR IV 08/21/25 06:00 09/13/25 16:15 10 ML Docusate Sodium 100 mg BIDPRN PRN PO 08/20/25 23:15 Acetaminophen 650 mg Q6HP PRN PO 08/20/25 23:15 09/10/25 13:23 650 MG Nitroglycerin 0.4 mg Q5MINP PRN SL 08/20/25 23:15 Hold Pantoprazole Sodium 40 mg DAILY IV 08/22/25 10:00 09/13/25 10:45 40 MG Sildenafil Citrate 20 mg TID@08,14,20 NG 08/30/25 20:00 09/11/25 20:00 20 MG Amlodipine Besylate 10 mg DAILY PO 09/01/25 10:45 09/11/25 10:30 10 MG Enteral Nutritional Formula 1,000 ml 30ML/HR GT 09/02/25 18:45 09/08/25 11:48 1,000 ML Amino Acid Protein 30 ml Q6HR GT 09/03/25 00:00 09/12/25 06:00 30 ML Hydralazine HCl 50 mg Q8HR PO 09/05/25 22:00 09/12/25 07:19 50 MG Levalbuterol HCl 1.25 mg Q6HR NEB 09/09/25 12:00 09/13/25 11:32 1.25 MG Acetylcysteine 100 mg Q6HR NEB 09/09/25 12:00 09/13/25 11:32 100 MG Ipratropium [place] 0.5 mg Q6HR NEB 09/09/25 12:00 09/13/25 11:32 0.5 MG Piperacillin Sod/ Tazobactam Sod 100 ml @ 25 mls/hr Q12HR IV 09/12/25 22:00 09/13/25 10:46 25 MLS/HR Vancomycin HCl 0 ml @ 0 mls/hr PER PHARMACY IV 09/12/25 16:15 Hydralazine HCl 10 mg Q6HP PRN IV 09/12/25 20:00 09/13/25 10:49 10 MG Heparin Sodium (Porcine) 5,000 units Q12HR SC 09/12/25 22:00 09/13/25 10:45 5,000 UNITS Albumin Human 100 ml @ 100 mls/hr PRN PRN IV 09/13/25 07:00 Examination General: Patient is agitated, moaning, not following commands. HEENT: Dry mucous membranes Respiratory/pulmonary: Breath sounds not heard in context of Grunting/ moaning. Cardiovascular: Normal heart sounds S1 and S2 with no associated murmurs Abdomen: Abdomen nondistended, there is no pain to palpation in any of the abdominal quadrants, no palpable masses. Extremities: Mild right hand swelling; Warm to touch. Dry crusty planter surface of feet. Peripheral Pulses: 3+ Radial (R). 3+ Radial (L). 3+ Dorsalis pedis (R). 3+ Dorsalis pedis(L) Skin: No rashes or pruritus, there is no sacral edema present at this time. laboratory and microbiology Laboratory Tests 09/13/25 03:58 Test 09/13/25 03:58 Range/Units Serum Glucose 91 74-106 mg/dL Microbiology Date/Time Source Procedure Growth Status 09/12/25 13:07 Blood Blood Culture - Preliminary NO GROWTH AFTER 24 HOURS OF INCUBATION. Resulted 08/22/25 12:52 Urine - [place]eng [place] Urine Culture - Final Complete 08/22/25 08:06 Nose MRSA Screen - Final Complete Problem List/Assessment/Plan Problem List/Assessment/Plan Neurology Sedation/analgesia Versed Discontinued Propofol: Discontinued Fentanyl discontinued # Metabolic encephalopathy due to Uremia/ Sepsis with anxiety/agitation/ delirium Creatinine continues to trend up. IR deferred tunneled catheter placement for now. Temporary hemodialysis catheter inserted Underwent hemodialysis today Cardiovascular # Acute on chronic HFpEF (improving) # Pulmonary Edema BNP normalized; OA Chest xray 08/20/2025: Moderate to severe pulmonary edema Chest xray 08/21/2025: Cardiomegaly with pulmonary venous congestion and edema Echocardiogram 01/14/2022: EF > 60%, Limited echo windows, mild TR, MR Echocardiogram 10/22/2024: Technically good study sinus rhythm. Concentric LVH with left atrial enlargement. Mild aortic sclerosis. Mild thickening of the anterior and posterior mitral leaflets. Valves appear to be structurally normal. Left ventricular function is preserved at 60% with normal RV function. Cardiology: Pending echo, considered R/LHC if inconclusive , discontinue bumex drip Per nephrology: Trial of bumex + albumin and D5W 75 cc/hour. Bumex drip discontinued by cardiology. D5W has been discontinued due to resolution of hypernatremia Lasix discontinued Repeat CXR shows pulmonary vascular congestion reduced in comparison to previous X-rays #Hypertension Currently on Hydralazine PRN. Resume Amlodipine 10 mg NG daily, Hydralazine 50 mg q 8 hours when p.o access available #CAD Coronary angiogram done on 08/30/2025: Left main, LAD and circumflex are patent, RCA patent, EF is 50-55% #Severe pulmonary hypertension R/L heart catheterization 08/30/2025: RA pressure 18 mmHg, RV pressure 62/16 mmHg, pulmonary artery pressure 66/18 mmHg, capillary wedge pressure: 17 mmHg Per cardiology: Sildenafil 20mg NG TID, testing testing 40 but this was lowered Respiratory Ventilator Intubated (08/21/2025) Extubated (09/07/2025) # Acute hypercapnic respiratory failure secondary to pulmonary edema s/p Extubation # Acute hypoxic respiratory failure # Respiratory acidosis (resolving) On 6 L oxygen supplementation with Oxymizer Med neb treatment with Ipratropium, levalbuterol Mucomyst 100 mg q 8 hours PT evaluation requested # Acute COPD exacerbation Methylprednisolone 40 mg IV, discontinued Medneb treatment with Ipratropium medneb, Albuterol medneb Ceftriaxone 1 g IV daily (discontinued) # Community acquired pneumonia due to Gram-positive/Gram-negative pneumonia/ Influenza A and B Tamiflu 30 mg BID suspension, discontinued Continue Zosyn, vancomycin Gastrointestinal # Peptic ulcer prophylaxis Pantoprazole 40 mg IV daily NG tube clogged; failed swallow evaluation Re-attempt NG tube insertion # Constipation Lactulose 15 mL Genitourinary Replace Meng catheter (09/12/25) # Possible Complicated UTI, resolving UA positive for UTI Ceftriaxone 1 g IV daily, discontinued Switched cefepime to vanc and Zosyn Nephrology # COLE on CKD likely hemodynamically mediated/ VMN Supportive management with IV fluids given Nephrology on board, recommended hemodialysis Patient initially had dialysis catheter in the right femoral region, removed. Interventional radiology on board, tunneled catheter placement deferred till confirmation with negative blood cultures. Kidney ultrasound shows no acute abnormality Nephrology on board, recommended hemodialysis, richy Marie in the interim. Continue tube feeding, monitor fluid balances, strict I&Os Temporary hemodialysis catheter inserted # Hyperkalemia, resolved Per nephrology: trial of forced diuresis to enhance potassium excretion, serial chemistry panels, IV bicarbonate infusion, and avoidance of IV contrast if able. # Acute metabolic acidosis # Nephrotic syndrome secondary to underlying diabetic nephropathy, possible # Hypernatremia, resolved D5W, discontinued Infectious disease # Influenza A and B Pneumonia Serology positive for Influenza A & B Tamiflu 30 mg BID suspension, discontinued # Possible Complicated UTI, present on admission Ceftriaxone 1 g IV daily, discontinued Discontinued cefepime; continue vancomycin, Zosyn Hem/oncology # Thrombocytopenia, resolved # Microcytic, hypochromic anemia Monitor CBC Endocrine # Type 2 diabetes mellitus Mild Sliding scale Monitor blood glucose # Class 1 Obesity BMI 30 DVT prophylaxis: Heparin 5000 U BID PUD prophylaxis: Pantoprazole 40 mg IV daily Lines: - L femoral Central line 08/20/2025 - discontinued on 08/29/2025 - L internal jugular central line 08/29/2025 09/08/2025 - Meng catheter 08/20/2025 - ET tube: 08/21/2025 (extubated 09/07/2025) - Femoral frank catheter: 08/30/2025- 09/10/2025 - Mid line: 09/08/2025 - Frank catheter 09/12/25 Nutrition: Holding off Nepro Critical care time 57 minutes excluding procedure. Goals of care discussed with nurses, Lev Susy at bedside. Plan discussed with Dr. Lopez Plan discussed with: Daughter, Other (nurses) My Orders My Orders Orders - URIAH NOBLE Procedure Category Date Status Time Heparin Sodium PHA 09/12/25 In Process (Porcine) 22:00 Complete Blood Count LAB 09/14/25 Verified 04:00 Comprehensive LAB 09/14/25 Verified Metabolic Panel 04:00 Dietary Evaluation Review Comments: Nutrition Recommendation: 1) EN Nepro Carbsteady @ 30ml/hr x 24hr (goal) along with Pro-stat 1 pk BID. Water flush 50ml Q6H if allowed, adjust PRN. TF at goal volume along with propofol & Pro-stat provide 1777 kcal (100%), 89 gm protein (83%), and 723 ml free water(including flush). 2) TPN if NPO >7 days 3) Monitor NPO status, lab values, weight trend, and I/O Expected Outcomes/Goals: Intake to meet >75% estimated needs Lab values to improve FU 2-3 days Date of Service: Sep 13, 2025 Billing Provider: PATRICIA LOPEZ MD Common Visit Codes: 37227-[id number] CARE 30-74 MIN URIAH NOBLE Sep 13, 2025 17:12 PATRICIA LOPEZ MD Sep 14, 2025 11:26
[2025-09-13] MEDS: LIDOCAINE 2% TOPICAL JELLY 5 ML URJT TOP ONE (18:23)
--- NOTE | 2025-09-13 19:44 | DVH ---
CHEST RADIOGRAPH INDICATION: NGT PLACEMENT TECHNIQUE: Single frontal view of the chest was obtained COMPARISON: XY CHEST PORTABLE on DOS: 09/12/25, XY CHEST XRAY 1 VIEW on DOS: 09/08/25, XY CHEST XRAY 1 VIEW on DOS: 09/07/25 FINDINGS: Lines and Tubes: Right internal jugular catheter in place in the superior vena cava. Enteric tube below the left diaphragm in the stomach. Lungs: Bibasilar airspace disease with possible small right pleural effusion. Pleura: No effusion. No pneumothorax. Cardiomediastinal contours: Cardiomegaly Bones: No acute osseous abnormality. IMPRESSION: 1. Enteric tube in the stomach. 2. Bibasilar airspace disease with possible small right pleural effusion. Right internal jugular catheter in place with the tip in the superior vena cava. 3. Findings may represent congestive failure. Correlate with the clinical setting.
[2025-09-14] VITALS (50 sets, daily range): BP systolic 104–182; BP diastolic 49–82; PULSE 83–116; RESP 7–75; TEMP 97.5–99.8; O2SAT 85–100
[2025-09-14 03:57] LABS: Hemoglobin 11.0 g/dL (12.2-16.2)
[2025-09-14 04:00] LABS: Hematocrit 38.1 % (36.0-46.0); Mean Corpuscular Hemoglobin 19.1 pg (28.0-32.0); Mean Corpuscular Volume 65.9 fL (80.0-100.0); Nucleated Red Blood Cells % 0.1 %
[2025-09-14 04:32] LABS: Alanine Aminotransferase 37 U/L (7-40); Albumin 3.5 g/dL (3.2-4.8); Alkaline Phosphatase 86 U/L (46-116); BUN/Creatinine Ratio 4.5 (10.0-20.0); Calcium 8.9 mg/dL (8.7-10.4); Carbon Dioxide 24 mmol/L (20-31); Total Protein 7.0 g/dL (5.7-8.2)
[2025-09-14 04:33] LABS: Bilirubin, Total 0.4 mg/dL (0.2-1.0)
[2025-09-14 05:02] LABS: Blood Urea Nitrogen 26 mg/dL (9-23); Glucose 72 mg/dL (74-106)
[2025-09-14 05:04] LABS: Anion Gap 14 (5-15); Chloride 103 mmol/L (98-107); Potassium 4.2 mmol/L (3.5-5.1); Sodium 141 mmol/L (136-145)
[2025-09-14 05:24] LABS: Anisocytosis Moderate; Ovalocytes FEW
--- NOTE | 2025-09-14 08:33 | DVHPN2 ---
Progress Note Date Seen: Sep 14, 2025 Has the PT tested + for MRSA If YES, has PT been informed?: No Medical Necessity Reason Pt with a Central, PICC or Fol: Yes The following are medically ne: Meng Catheter Reason for meng catheter: Strict I&O Subjective Review of Systems: Deferred Objective vital signs Vital Sign Date Time Temp Pulse Resp B/P (MAP) Pulse Ox O2 Delivery O2 Flow Rate FiO2 09/14/25 08:00 88 09/14/25 08:00 20 98 Nasal Cannula* 5 40 09/14/25 06:00 163/65 (97) 09/14/25 04:00 99.8 99.8 Total Intake and Output 09/13/25 09/13/25 09/14/25 15:00 23:00 07:00 Intake Total 100 ml 1000 ml 60 ml Output Total 200 ml 350 ml Balance 100 ml 800 ml -290 ml medications Current Medications Medications Dose Ordered Sig/Adri Route Start Time Stop Time Status Last Admin Dose Admin Multivit/Ca Carb/ B Cmplx/FA/Prenat 1 tab DAILY PO 08/21/25 10:00 09/11/25 10:30 1 TAB Diagnostic Test (Pha) 1 strip ACHS 08/21/25 07:00 09/14/25 06:35 1 STRIP Insulin Human Regular ACHS SC 08/21/25 07:00 09/11/25 12:03 2 UNITS Dextrose 50 ml UD PRN IV 08/20/25 23:15 Sodium Chloride 10 ml Q8HR IV 08/21/25 06:00 09/14/25 05:44 10 ML Docusate Sodium 100 mg BIDPRN PRN PO 08/20/25 23:15 Acetaminophen 650 mg Q6HP PRN PO 08/20/25 23:15 09/10/25 13:23 650 MG Nitroglycerin 0.4 mg Q5MINP PRN SL 08/20/25 23:15 Hold Pantoprazole Sodium 40 mg DAILY IV 08/22/25 10:00 09/13/25 10:45 40 MG Sildenafil Citrate 20 mg TID@08,14,20 NG 08/30/25 20:00 09/14/25 07:49 20 MG Amlodipine Besylate 10 mg DAILY PO 09/01/25 10:45 09/11/25 10:30 10 MG Enteral Nutritional Formula 1,000 ml 30ML/HR GT 09/02/25 18:45 09/08/25 11:48 1,000 ML Amino Acid Protein 30 ml Q6HR GT 09/03/25 00:00 09/14/25 05:44 30 ML Hydralazine HCl 50 mg Q8HR PO 09/05/25 22:00 09/14/25 05:43 50 MG Levalbuterol HCl 1.25 mg Q6HR NEB 09/09/25 12:00 09/14/25 05:50 1.25 MG Acetylcysteine 100 mg Q6HR NEB 09/09/25 12:00 09/14/25 05:51 100 MG Ipratropium [place] 0.5 mg Q6HR NEB 09/09/25 12:00 09/14/25 05:51 0.5 MG Piperacillin Sod/ Tazobactam Sod 100 ml @ 25 mls/hr Q12HR IV 09/12/25 22:00 09/13/25 21:13 25 MLS/HR Vancomycin HCl 0 ml @ 0 mls/hr PER PHARMACY IV 09/12/25 16:15 Hydralazine HCl 10 mg Q6HP PRN IV 09/12/25 20:00 09/13/25 23:12 10 MG Heparin Sodium (Porcine) 5,000 units Q12HR SC 09/12/25 22:00 09/13/25 21:14 5,000 UNITS Albumin Human 100 ml @ 100 mls/hr PRN PRN IV 09/13/25 07:00 Examination: GENERAL:Abnormal, LUNGS:Abnormal, CVS:Abnormal, SKIN:Abnormal laboratory and microbiology Laboratory Tests 09/14/25 03:09 Test 09/14/25 03:09 Range/Units Serum Glucose 72 L 74-106 mg/dL Microbiology Date/Time Source Procedure Growth Status 09/12/25 13:07 Blood Blood Culture - Preliminary NO GROWTH AFTER 24 HOURS OF INCUBATION. Resulted 08/22/25 12:52 Urine - [place] Urine Culture - Final Complete 08/22/25 08:06 Nose MRSA Screen - Final Complete Problem List/Assessment/Plan Problem List/Assessment/Plan Acute kidney injury superimposed Chronic Kidney Disease stage III B secondary hemodynamic mediated, ATN Acute hypoxic respiratory failure, patient intubated on ventilator extubated Community-acquired pneumonia , influenza Diabetes mellitus type 2 Nephrotic syndrome secondary to underlying diabetic nephropathy hypertension richy Marie in the interim dialysis, tunneled catheter will be placed after negative blood cultures and improve WBC count BCX NGTD HD tomorrow tube feeding via NGT monitor fluid balances Strict I&Os kidney ultrasound reported within normal limit IV antibiotics Avoid nephrotoxic medications Plan discussed with: Other Dietary Evaluation Review Comments: Nutrition Recommendation: 1) EN Nepro Carbsteady @ 30ml/hr x 24hr (goal) along with Pro-stat 1 pk BID. Water flush 50ml Q6H if allowed, adjust PRN. TF at goal volume along with propofol & Pro-stat provide 1777 kcal (100%), 89 gm protein (83%), and 723 ml free water(including flush). 2) TPN if NPO >7 days 3) Monitor NPO status, lab values, weight trend, and I/O Expected Outcomes/Goals: Intake to meet >75% estimated needs Lab values to improve FU 2-3 days KELLY DIAZ MD Sep 14, 2025 08:33
[2025-09-14 13:36] LABS: Base Excess 2.3 mmol/L (-2.0-3.0)
[2025-09-14] MEDS: LORazepam 2MG/ML-1ML VIAL IV ONE (16:00)
--- NOTE | 2025-09-14 16:40 | DVH ---
EXAM: CT HEAD WITHOUT CONTRAST INDICATION: r/o structural cause for encephalopathy TECHNIQUE: CT of the head without intravenous contrast. Radiation Dose : 1. Head: CT Dose: CTDI volume is 33.2 mGy. Dose-length product is 651.15 mGy*cm The dose indicators for CT are the volume Computed Tomography (CT) Dose Index (CTDIvol) and the Dose Length Product (DLP), and are measured in units of mGy and mGy-cm, respectively. These indicators are not patient dose, but values generated from the CT scanner acquisition factors. The report includes radiation exposure data for exposures received during this examination. COMPARISON: HEAD WITHOUT CONTRAST on DOS: 12/21/20 FINDINGS: Motion artifact degrades fine detail. There is an isointense likely extra-axial partially calcified mass within the right anterior temporal pole measuring at least 3.0 cm with locodregional mass effect. No acute territorial infarct, intracranial hemorrhage, or mass effect. There are global involutional changes with compensatory prominence of the ventricles and sulci. Patchy periventricular and subcortical white matter hypoattenuation is nonspecific but may be related to small vessel ischemic disease. 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 9 mm hyperdense lesion along the right interhemispheric falx without significant mass effect. The orbits are normal. Opacification of the mastoid air cells. Subtotal opacification of the sphenoid sinuses. Moderate mucosal thickening is in the left ethmoid air cells. The osseous structures are unremarkable. IMPRESSION: 1. No acute territorial infarct or intracranial hemorrhage. 2. 3.0 cm partially calcified mass within the right anterior temporal pole, possibly a meningioma. Further assessment with a nonemergent MRI of the brain is suggested. 3. Age-related involutional changes. Chronic ischemic changes as detailed. 4. Paranasal sinus disease as detailed. Radiation optimization: All CT scans at this facility use at least one of these dose optimization techniques: automated exposure control mA and/or kV adjustment per patient size (includes targeted exams where dose is matched to clinical indication) or iterative reconstruction.
--- NOTE | 2025-09-14 16:49 | DVHPNRES ---
Progress Note Date Seen: Sep 14, 2025 Resident Creating Document: URIAH NOBLE RESIDENT Has the PT tested + for MRSA If YES, has PT been informed?: No Medical Necessity Reason Pt with a Central, PICC or Fol: Yes The following are medically ne: Meng Catheter Reason for meng catheter: Strict I&O Subjective Review of Systems Ms. Marin is a 75-year-old female with prior medical history of HFpEF, COPD with home oxygen, gout, anxiety, type 2 diabetes mellitus, hyperlipidemia, hypertension, and PAD, who bas brought to the [facility] by EMS with chief complaint of shortness of breath and back and midsternal non-radiating chest pain. Daughter reported progressively worsening shortness of breath for the last 2 weeks associated with general malaise and orthopnea, describing very wet coughing sounds when her mother lays flat. She states that her mother began complaining of worsening shortness of breath associated with non-radiating midsternal chest pain which prompted her to call EMS. Per record, on seen she was saturating 74%, she was placed on CPAP with inspiration increasing to 88% on route to the emergency department. On evaluation in the ED, patient was afebrile, slightly hypertensive, and tachypneic, saturating 81% which she was placed on BiPAP. Initial labs significant for leukocytosis of 11.3, with elevated hematocrit, and thrombocytopenia, hyperkalemia, creatinine 4.09, BUN 46, and ABG significant for respiratory acidosis, troponins are negative, BNP 2515.41. Serology was positive for influenza A and B. Chest x-ray showed moderate to severe pulmonary edema. Patient further deteriorated requiring intubation for respiratory distress. She was started on IV Lasix, IV methylprednisolone, hyperkalemia protocol, bicarbonate drip, and nitroglycerin drip. Prior Medical history: CHF, COPD, gout, anxiety, type 2 diabetes mellitus, hyperlipidemia, hypertension, PAD, pulmonary hypertension Previous surgical history: Left leg stenting for PAD Allergies: Denies Social history: Daughter reports the patient smokes cigarettes with cessation approximately 20 years ago Home medications: Allopurinol, insulin, gabapentin, simvastatin, tadalafil 09/12/25: The patient was seen at bedside. Patient appeared agitated. Patient has tachycardia, tachypnea. Daughter on bedside, reports that the patient is able to recognize her. Although since the patient is non-verbal, unable to obtain any history from the patient, Daughter reports baseline- patient is able to communicate and function mostly independently at home. She is status post extubation (09/07/25), on 6 L oxymizer. IR on board, tunneled catheter pending set of negative blood cultures in context of sepsis. We will obtain a temporary hemodialysis line considering the creatinine trending up. Will replace Meng catheter today. We will do a trial of swallow evaluation when feasible. 09/13/25: The patient was seen at bedside. Patient continues to remain agitated, failed swallow evaluation and NG tube placement owing to non-cooperation. She underwent placement of temporary dialysis catheter & replacement of meng yesterday. Yesterday we discontinued cefepime, patient currently on Vancomycin & Zosyn. Patient underwent hemodialysis today. Her p.o blood pressure medications are on hold; currently IV hydralazine PRN. Her WBC count came down to 14.7 today. CXR shows reduced pulmonary vascular congestion from the baseline. We will re-attempt NG tube placement today with Ativan. 09/14/25: The patient was seen at bedside. Patient continues to remain confused and agitated. Patient underwent NG tube placement with confirmation with CXR. No significant overnight events. Patient's care plan discussed in detail with daughter and sister (Ewa). Objective vital signs Vital Sign Date Time Temp Pulse Resp B/P (MAP) Pulse Ox O2 Delivery O2 Flow Rate FiO2 09/14/25 15:05 96 9 142/68 (92) 09/14/25 15:00 92 09/14/25 14:00 Nasal Cannula* 5 40 09/14/25 12:00 98.3 98.3 Total Intake and Output 09/13/25 09/13/25 09/14/25 15:00 23:00 07:00 Intake Total 100 ml 1000 ml 60 ml Output Total 200 ml 350 ml Balance 100 ml 800 ml -290 ml medications Current Medications Medications Dose Ordered Sig/Adri Route Start Time Stop Time Status Last Admin Dose Admin Multivit/Ca Carb/ B Cmplx/FA/Prenat 1 tab DAILY PO 08/21/25 10:00 09/14/25 09:50 1 TAB Diagnostic Test (Pha) 1 strip ACHS 08/21/25 07:00 09/14/25 11:10 1 STRIP Insulin Human Regular ACHS SC 08/21/25 07:00 09/11/25 12:03 2 UNITS Dextrose 50 ml UD PRN IV 08/20/25 23:15 Sodium Chloride 10 ml Q8HR IV 08/21/25 06:00 09/14/25 13:55 10 ML Docusate Sodium 100 mg BIDPRN PRN PO 08/20/25 23:15 Acetaminophen 650 mg Q6HP PRN PO 08/20/25 23:15 09/10/25 13:23 650 MG Nitroglycerin 0.4 mg Q5MINP PRN SL 08/20/25 23:15 Hold Pantoprazole Sodium 40 mg DAILY IV 08/22/25 10:00 09/14/25 09:50 40 MG Sildenafil Citrate 20 mg TID@08,14,20 NG 08/30/25 20:00 09/14/25 13:55 20 MG Amlodipine Besylate 10 mg DAILY PO 09/01/25 10:45 09/14/25 09:51 10 MG Enteral Nutritional Formula 1,000 ml 30ML/HR GT 09/02/25 18:45 09/14/25 13:50 1,000 ML Amino Acid Protein 30 ml Q6HR GT 09/03/25 00:00 09/14/25 11:58 30 ML Hydralazine HCl 50 mg Q8HR PO 09/05/25 22:00 09/14/25 14:37 50 MG Levalbuterol HCl 1.25 mg Q6HR NEB 09/09/25 12:00 09/14/25 12:12 1.25 MG Acetylcysteine 100 mg Q6HR NEB 09/09/25 12:00 09/14/25 12:12 100 MG Ipratropium [place] 0.5 mg Q6HR NEB 09/09/25 12:00 09/14/25 12:12 0.5 MG Piperacillin Sod/ Tazobactam Sod 100 ml @ 25 mls/hr Q12HR IV 09/12/25 22:00 09/14/25 09:52 25 MLS/HR Vancomycin HCl 0 ml @ 0 mls/hr PER PHARMACY IV 09/12/25 16:15 Hydralazine HCl 10 mg Q6HP PRN IV 09/12/25 20:00 09/14/25 11:57 10 MG Heparin Sodium (Porcine) 5,000 units Q12HR SC 09/12/25 22:00 09/14/25 09:53 5,000 UNITS Albumin Human 100 ml @ 100 mls/hr PRN PRN IV 09/13/25 07:00 Examination General: Patient is confused, agitated, moaning, not following commands. HEENT: Dry mucous membranes Respiratory/pulmonary: Breath sounds not heard in context of Grunting/ moaning. Cardiovascular: Normal heart sounds S1 and S2 with no associated murmurs Abdomen: Abdomen nondistended, normal bowel sounds. Extremities: Dry crusty planter surface of bilateral feet. laboratory and microbiology Laboratory Tests 09/14/25 03:09 Test 09/14/25 03:09 Range/Units Serum Glucose 72 L 74-106 mg/dL Microbiology Date/Time Source Procedure Growth Status 09/12/25 13:07 Blood Blood Culture - Preliminary NO GROWTH AFTER 48 HOURS OF INCUBATION. Resulted 08/22/25 12:52 Urine - Meng [place] Urine Culture - Final Complete 08/22/25 08:06 Nose MRSA Screen - Final Complete Problem List/Assessment/Plan Problem List/Assessment/Plan Neurology Sedation/analgesia Versed Discontinued Propofol: Discontinued Fentanyl discontinued # Metabolic encephalopathy due to Uremia/ Sepsis with anxiety/agitation/ delirium Creatinine continues to trend up. IR deferred tunneled catheter placement for now. Temporary hemodialysis catheter inserted Ordered ABG in context of no improvement in confusion. ABG resulted WNL Ordered noncontrast CT head. Scheduled for hemodialysis tomorrow Cardiovascular # Acute on chronic HFpEF (improving) # Pulmonary Edema BNP normalized; OA Chest xray 08/20/2025: Moderate to severe pulmonary edema Chest xray 08/21/2025: Cardiomegaly with pulmonary venous congestion and edema Echocardiogram 01/14/2022: EF > 60%, Limited echo windows, mild TR, MR Echocardiogram 10/22/2024: Technically good study sinus rhythm. Concentric LVH with left atrial enlargement. Mild aortic sclerosis. Mild thickening of the anterior and posterior mitral leaflets. Valves appear to be structurally normal. Left ventricular function is preserved at 60% with normal RV function. Cardiology: Pending echo, considered R/LHC if inconclusive , discontinue bumex drip Per nephrology: Trial of bumex + albumin and D5W 75 cc/hour. Bumex drip discontinued by cardiology. D5W has been discontinued due to resolution of hypernatremia Lasix discontinued Repeat CXR from 09/13/2025 shows pulmonary vascular congestion reduced in comparison to previous X-rays #Hypertension Continue Amlodipine 10 mg NG daily, Hydralazine 50 mg q8 #CAD Coronary angiogram done on 08/30/2025: Left main, LAD and circumflex are patent, RCA patent, EF is 50-55% #Severe pulmonary hypertension R/L heart catheterization 08/30/2025: RA pressure 18 mmHg, RV pressure 62/16 mmHg, pulmonary artery pressure 66/18 mmHg, capillary wedge pressure: 17 mmHg Per cardiology: Sildenafil 20mg NG TID, testing testing 40 but this was lowered Respiratory Ventilator Intubated (08/21/2025) Extubated (09/07/2025) # Acute hypercapnic respiratory failure secondary to pulmonary edema s/p Extubation # Acute hypoxic respiratory failure # Respiratory acidosis (resolving) On 6 L oxygen supplementation with Oxymizer Med neb treatment with Ipratropium, levalbuterol Mucomyst 100 mg q 8 hours PT evaluation requested # Acute COPD exacerbation Methylprednisolone 40 mg IV, discontinued Medneb treatment with Ipratropium medneb, Albuterol medneb Ceftriaxone 1 g IV daily (discontinued) # Community acquired pneumonia due to Gram-positive/Gram-negative pneumonia/ Influenza A and B Tamiflu 30 mg BID suspension, discontinued Continue Zosyn, vancomycin Gastrointestinal NG tube reinserted (09/13/2025); failed swallow evaluation # Peptic ulcer prophylaxis Pantoprazole 40 mg IV daily # Constipation Lactulose 15 mL Genitourinary Replace Meng catheter (09/12/25) # Possible Complicated UTI, resolving UA positive for UTI Ceftriaxone 1 g IV daily, discontinued Switched cefepime to vanc and Zosyn Nephrology # COLE on CKD likely hemodynamically mediated/ VMN Supportive management with IV fluids given Nephrology on board, recommended hemodialysis Patient initially had dialysis catheter in the right femoral region, removed. Interventional radiology on board, tunneled catheter placement deferred till confirmation with negative blood cultures. Kidney ultrasound shows no acute abnormality Nephrology on board, recommended hemodialysis, richy Marie in the interim. Continue tube feeding, monitor fluid balances, strict I&Os Hemodialysis scheduled tomorrow # Hyperkalemia, resolved Per nephrology: trial of forced diuresis to enhance potassium excretion, serial chemistry panels, IV bicarbonate infusion, and avoidance of IV contrast if able. # Acute metabolic acidosis # Nephrotic syndrome secondary to underlying diabetic nephropathy, possible # Hypernatremia, resolved D5W, discontinued Infectious disease # Influenza A and B Pneumonia Serology positive for Influenza A & B Tamiflu 30 mg BID suspension, discontinued # Possible Complicated UTI, present on admission Ceftriaxone 1 g IV daily, discontinued Discontinued cefepime; continue vancomycin, Zosyn Most recent blood culture from 09/12/2025 negative. Can consider discontinuing antibiotic, WBC count possibly going up due to drugs, no left shift on CBC Hem/oncology # Thrombocytopenia, resolved # Microcytic, hypochromic anemia Monitor CBC Endocrine # Type 2 diabetes mellitus Mild Sliding scale Monitor blood glucose # Class 1 Obesity BMI 30 DVT prophylaxis: Heparin 5000 U BID PUD prophylaxis: Pantoprazole 40 mg IV daily Lines: - L femoral Central line 08/20/2025 - discontinued on 08/29/2025 - L internal jugular central line 08/29/2025 09/08/2025 - Meng catheter 08/20/2025 - ET tube: 08/21/2025 (extubated 09/07/2025) - Femoral frank catheter: 08/30/2025- 09/10/2025 - Mid line: 09/08/2025 - Frank catheter 09/12/25 Nutrition: Nepro Critical care time 43 minutes excluding procedure. Goals of care discussed with nurses, Daughter, Susy at bedside. Care plan discussed with sister (Ewa) over phone call for more than 9 minutes. Plan discussed with Dr. Lopez Plan discussed with: Daughter, Other (sister, nurses) My Orders My Orders Orders - URIAH NOBLE RESIDENT Procedure Category Date Status Time Chest Portable XY 09/13/25 Resulted 18:[address] 09/14/25 Resulted 13:38 Dietary Evaluation Review Comments: Nutrition Recommendation: 1) EN Nepro Carbsteady @ 30ml/hr x 24hr (goal) along with Pro-stat 1 pk BID. Water flush 50ml Q6H if allowed, adjust PRN. TF at goal volume along with propofol & Pro-stat provide 1777 kcal (100%), 89 gm protein (83%), and 723 ml free water(including flush). 2) TPN if NPO >7 days 3) Monitor NPO status, lab values, weight trend, and I/O Expected Outcomes/Goals: Intake to meet >75% estimated needs Lab values to improve FU 2-3 days Date of Service: Sep 14, 2025 Billing Provider: PATRICIA LOPEZ MD Common Visit Codes: 57524-[id number] CARE 30-74 MIN URIAH NOBLE RESIDENT Sep 14, 2025 16:48 PATRICIA LOPEZ MD Sep 15, 2025 11:57
--- NOTE | 2025-09-14 17:34 | DVHPN2 ---
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 HYPERKALEMIA COPD HYPERLIPIDEMIA SIGN SX COMPLEX OF NOW WITH SOB CHEST PAIN RENAL FAILURE HYPERKALEMIA RESP FAILURE REQUIRING INTUBATION vital signs Vital Sign Date Time Temp Pulse Resp B/P (MAP) Pulse Ox O2 Delivery O2 Flow Rate FiO2 09/14/25 15:05 96 9 142/68 (92) 09/14/25 15:00 92 09/14/25 14:00 Nasal Cannula* 5 40 09/14/25 12:00 98.3 98.3 Total Intake and Output 09/13/25 09/13/25 09/14/25 15:00 23:00 07:00 Intake Total 100 ml 1000 ml 60 ml Output Total 200 ml 350 ml Balance 100 ml 800 ml -290 ml medications Current Medications Medications Dose Ordered Sig/Adri Route Start Time Stop Time Status Last Admin Dose Admin Multivit/Ca Carb/ B Cmplx/FA/Prenat 1 tab DAILY PO 08/21/25 10:00 09/14/25 09:50 1 TAB Diagnostic Test (Pha) 1 strip ACHS 08/21/25 07:00 09/14/25 11:10 1 STRIP Insulin Human Regular ACHS SC 08/21/25 07:00 09/11/25 12:03 2 UNITS Dextrose 50 ml UD PRN IV 08/20/25 23:15 Sodium Chloride 10 ml Q8HR IV 08/21/25 06:00 09/14/25 13:55 10 ML Docusate Sodium 100 mg BIDPRN PRN PO 08/20/25 23:15 Acetaminophen 650 mg Q6HP PRN PO 08/20/25 23:15 09/10/25 13:23 650 MG Nitroglycerin 0.4 mg Q5MINP PRN SL 08/20/25 23:15 Hold Pantoprazole Sodium 40 mg DAILY IV 08/22/25 10:00 09/14/25 09:50 40 MG Sildenafil Citrate 20 mg TID@08,14,20 NG 08/30/25 20:00 09/14/25 13:55 20 MG Amlodipine Besylate 10 mg DAILY PO 09/01/25 10:45 09/14/25 09:51 10 MG Enteral Nutritional Formula 1,000 ml 30ML/HR GT 09/02/25 18:45 09/14/25 13:50 1,000 ML Amino Acid Protein 30 ml Q6HR GT 09/03/25 00:00 09/14/25 11:58 30 ML Hydralazine HCl 50 mg Q8HR PO 09/05/25 22:00 09/14/25 14:37 50 MG Levalbuterol HCl 1.25 mg Q6HR NEB 09/09/25 12:00 09/14/25 12:12 1.25 MG Acetylcysteine 100 mg Q6HR NEB 09/09/25 12:00 09/14/25 12:12 100 MG Ipratropium [place] 0.5 mg Q6HR NEB 09/09/25 12:00 09/14/25 12:12 0.5 MG Piperacillin Sod/ Tazobactam Sod 100 ml @ 25 mls/hr Q12HR IV 09/12/25 22:00 09/14/25 09:52 25 MLS/HR Vancomycin HCl 0 ml @ 0 mls/hr PER PHARMACY IV 09/12/25 16:15 Hydralazine HCl 10 mg Q6HP PRN IV 09/12/25 20:00 09/14/25 11:57 10 MG Heparin Sodium (Porcine) 5,000 units Q12HR SC 09/12/25 22:00 09/14/25 09:53 5,000 UNITS Albumin Human 100 ml @ 100 mls/hr PRN PRN IV 09/13/25 07:00 laboratory and microbiology Laboratory Tests 09/14/25 03:09 Test 09/14/25 03:09 Range/Units Serum Glucose 72 L 74-106 mg/dL Problem List ORGANIC HEART DISEASE CAD HFrEF HTN 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 HYPERKALEMIA COPD HYPERLIPIDEMIA SIGN SX COMPLEX OF NOW WITH SOB CHEST PAIN RENAL FAILURE HYPERKALEMIA RESP FAILURE REQUIRING INTUBATION EXTUBATED MENINGIOMA NO CHANGE Assessment/Plan CORRECT HYPERKALEMIA CONSIDER ECHO IF INCONCLUSIVE CONSIDER L/RHC BNP 370 ABX DC BUMEX START IVF AT 100 CC/HR ADD LOKELMA K+ CORRECTED REPEAT BNP WILL PROCEED WITH L/RHC ON FRIDAY POSITIVE FOR INFLUENZA A AND B POSITIVE START WEANING PT CON IV FLUID L/RHC NL CORONARIES EF >50% LVEDP 17mmHg RHC RA 15-27mmHg RV 62/17 PA`66/ 18 PCWP 17 SEVERE PUL HYPERTENSION START REVATIO 20 MG TID HEMODIALYSIS IN AM CHEST CXR STILL WITH INFILTRATIVE PROCESS START WEAN SEDATION WITH HD SIGNIFICANT IMPROVEMENT IN LUNG EFFUSION AND INFILTRATE STOP SEDATION WEAN PT OFF VENT OTHERWISE CONSIDER TRACH CHEST CXR APPEARS TO HAVE IMPROVED SIGNIFICANTLY COMPARED TO 08/29/25 LAST RIGHT SIDED EFFUSION SIGNIFICANT CLEARING OF INTERSTITIAL INFILTRATE OFF SEDATION EXTUBATED DIALYSIS UREMIC LEUKOCYTOSIS CXR ABG RESP ACIDOSIS IMPROVED WITH LOWER O2 LEUKOCYTOSIS CONSIDER CT CHEST Dietary Evaluation Review Comments: Nutrition Recommendation: 1) EN Nepro Carbsteady @ 30ml/hr x 24hr (goal) along with Pro-stat 1 pk BID. Water flush 50ml Q6H if allowed, adjust PRN. TF at goal volume along with propofol & Pro-stat provide 1777 kcal (100%), 89 gm protein (83%), and 723 ml free water(including flush). 2) TPN if NPO >7 days 3) Monitor NPO status, lab values, weight trend, and I/O Expected Outcomes/Goals: Intake to meet >75% estimated needs Lab values to improve FU 2-3 days Plan discussed with: Patient Critical Care Time(min): 35 RAMIN GARCIA MD Sep 14, 2025 17:34
[2025-09-15] VITALS (43 sets, daily range): BP systolic 107–198; BP diastolic 44–82; PULSE 70–97; RESP 10–26; TEMP 98.2–99.3; O2SAT 79–100
[2025-09-15 05:47] LABS: Hematocrit 35.8 % (36.0-46.0); Hemoglobin 10.2 g/dL (12.2-16.2); Mean Corpuscular Hemoglobin 18.7 pg (28.0-32.0); Mean Corpuscular Volume 65.8 fL (80.0-100.0); Nucleated Red Blood Cells % 0.0 %
[2025-09-15 06:05] LABS: Chloride 102 mmol/L (98-107); Potassium 3.8 mmol/L (3.5-5.1); Sodium 143 mmol/L (136-145)
[2025-09-15 06:06] LABS: Anion Gap 13 (5-15); Carbon Dioxide 28 mmol/L (20-31)
[2025-09-15 06:07] LABS: Calcium 8.7 mg/dL (8.7-10.4)
[2025-09-15 06:11] LABS: BUN/Creatinine Ratio 7.7 (10.0-20.0); Glucose 89 mg/dL (74-106)
[2025-09-15 06:13] LABS: Blood Urea Nitrogen 52 mg/dL (9-23)
[2025-09-15] MEDS: SODIUM CHL 0.9% 1000 ML BAG XX ONE (07:00)
[2025-09-15] MEDS: ALBUMIN 25% 100 ML IV PRN (11:23)
--- NOTE | 2025-09-15 13:01 | DVHPNRES ---
Progress Note Date Seen: Sep 15, 2025 Resident Creating Document: URIAH NOBLE RESIDENT Has the PT tested + for MRSA If YES, has PT been informed?: No Medical Necessity Reason Pt with a Central, PICC or Fol: Yes The following are medically ne: Meng Catheter Reason for meng catheter: Strict I&O Subjective Review of Systems Ms. Marin is a 75-year-old female with prior medical history of HFpEF, COPD with home oxygen, gout, anxiety, type 2 diabetes mellitus, hyperlipidemia, hypertension, and PAD, who bas brought to the [facility] by EMS with chief complaint of shortness of breath and back and midsternal non-radiating chest pain. Daughter reported progressively worsening shortness of breath for the last 2 weeks associated with general malaise and orthopnea, describing very wet coughing sounds when her mother lays flat. She states that her mother began complaining of worsening shortness of breath associated with non-radiating midsternal chest pain which prompted her to call EMS. Per record, on seen she was saturating 74%, she was placed on CPAP with inspiration increasing to 88% on route to the emergency department. On evaluation in the ED, patient was afebrile, slightly hypertensive, and tachypneic, saturating 81% which she was placed on BiPAP. Initial labs significant for leukocytosis of 11.3, with elevated hematocrit, and thrombocytopenia, hyperkalemia, creatinine 4.09, BUN 46, and ABG significant for respiratory acidosis, troponins are negative, BNP 2515.41. Serology was positive for influenza A and B. Chest x-ray showed moderate to severe pulmonary edema. Patient further deteriorated requiring intubation for respiratory distress. She was started on IV Lasix, IV methylprednisolone, hyperkalemia protocol, bicarbonate drip, and nitroglycerin drip. Prior Medical history: CHF, COPD, gout, anxiety, type 2 diabetes mellitus, hyperlipidemia, hypertension, PAD, pulmonary hypertension Previous surgical history: Left leg stenting for PAD Allergies: Denies Social history: Daughter reports the patient smokes cigarettes with cessation approximately 20 years ago Home medications: Allopurinol, insulin, gabapentin, simvastatin, tadalafil 09/12/25: The patient was seen at bedside. Patient appeared agitated. Patient has tachycardia, tachypnea. Daughter on bedside, reports that the patient is able to recognize her. Although since the patient is non-verbal, unable to obtain any history from the patient, Daughter reports baseline- patient is able to communicate and function mostly independently at home. She is status post extubation (09/07/25), on 6 L oxymizer. IR on board, tunneled catheter pending set of negative blood cultures in context of sepsis. We will obtain a temporary hemodialysis line considering the creatinine trending up. Will replace Meng catheter today. We will do a trial of swallow evaluation when feasible. 09/13/25: The patient was seen at bedside. Patient continues to remain agitated, failed swallow evaluation and NG tube placement owing to non-cooperation. She underwent placement of temporary dialysis catheter & replacement of meng yesterday. Yesterday we discontinued cefepime, patient currently on Vancomycin & Zosyn. Patient underwent hemodialysis today. Her p.o blood pressure medications are on hold; currently IV hydralazine PRN. Her WBC count came down to 14.7 today. CXR shows reduced pulmonary vascular congestion from the baseline. We will re-attempt NG tube placement today with Ativan. 09/14/25: The patient was seen at bedside. Patient continues to remain confused and agitated. Patient underwent NG tube placement with confirmation with CXR. No significant overnight events. Patient's care plan discussed in detail with daughter and sister (Ewa). 09/15/25: The patient was seen at bedside. Patient was transferred to [facility] CT head done yesterday shows partially calcified lesion, possibly meningioma, no acute abnormality seen. Patient appeared calm today. Patient is admitted with tachypnea, went up on oxygen, on 6 L. Undergoing hemodialysis today. We will request a swallow evaluation. Patient's CBC shows eosinophilia, discontinued Zosyn. Started patient on IV Rocephin. We will consider discontinuing vancomycin tomorrow if the eosinophil count continues trending up. Objective vital signs Vital Sign Date Time Temp Pulse Resp B/P (MAP) Pulse Ox O2 Delivery O2 Flow Rate FiO2 09/15/25 11:57 85 09/15/25 11:57 15 95 Oxymizer 10 N/A 09/15/25 11:01 107/44 (65) 09/15/25 08:01 99.3 99.3 Total Intake and Output 09/14/25 09/14/25 09/15/25 15:00 23:00 07:00 Intake Total 100 ml 105 ml 305 ml Output Total 250 ml 250 ml Balance 100 ml -145 ml 55 ml medications Current Medications Medications Dose Ordered Sig/Adri Route Start Time Stop Time Status Last Admin Dose Admin Multivit/Ca Carb/ B Cmplx/FA/Prenat 1 tab DAILY PO 08/21/25 10:00 09/15/25 07:47 1 TAB Diagnostic Test (Pha) 1 strip ACHS 08/21/25 07:00 09/15/25 10:31 1 STRIP Insulin Human Regular ACHS SC 08/21/25 07:00 09/11/25 12:03 2 UNITS Dextrose 50 ml UD PRN IV 08/20/25 23:15 Sodium Chloride 10 ml Q8HR IV 08/21/25 06:00 09/15/25 10:36 10 ML Docusate Sodium 100 mg BIDPRN PRN PO 08/20/25 23:15 Acetaminophen 650 mg Q6HP PRN PO 08/20/25 23:15 09/10/25 13:23 650 MG Nitroglycerin 0.4 mg Q5MINP PRN SL 08/20/25 23:15 Hold Pantoprazole Sodium 40 mg DAILY IV 08/22/25 10:00 09/15/25 07:47 40 MG Sildenafil Citrate 20 mg TID@08,14,20 NG 08/30/25 20:00 09/15/25 07:47 20 MG Amlodipine Besylate 10 mg DAILY PO 09/01/25 10:45 09/14/25 09:51 10 MG Enteral Nutritional Formula 1,000 ml 30ML/HR GT 09/02/25 18:45 09/14/25 13:50 1,000 ML Amino Acid Protein 30 ml Q6HR GT 09/03/25 00:00 09/15/25 05:56 30 ML Hydralazine HCl 50 mg Q8HR PO 09/05/25 22:00 09/15/25 05:55 50 MG Levalbuterol HCl 1.25 mg Q6HR NEB 09/09/25 12:00 09/15/25 11:11 1.25 MG Acetylcysteine 100 mg Q6HR NEB 09/09/25 12:00 09/15/25 11:12 100 MG Ipratropium [place] 0.5 mg Q6HR NEB 09/09/25 12:00 09/15/25 11:11 0.5 MG Piperacillin Sod/ Tazobactam Sod 100 ml @ 25 mls/hr Q12HR IV 09/12/25 22:00 09/15/25 07:47 25 MLS/HR Vancomycin HCl 0 ml @ 0 mls/hr PER PHARMACY IV 09/12/25 16:15 Hydralazine HCl 10 mg Q6HP PRN IV 09/12/25 20:00 09/14/25 18:14 10 MG Heparin Sodium (Porcine) 5,000 units Q12HR SC 09/12/25 22:00 09/14/25 22:04 5,000 UNITS Albumin Human 100 ml @ 100 mls/hr PRN PRN IV 09/13/25 07:00 09/15/25 11:23 100 MLS/HR Examination General: Patient is uncooperative today. Patient is A&O x3 HEENT: Dry mucous membranes Respiratory/pulmonary: Normal breath sounds heard Cardiovascular: Tachycardia. Normal heart sounds S1 and S2 with no associated murmurs Abdomen: Abdomen nondistended, normal bowel sounds. Extremities: Dry crusty planter surface of bilateral feet. laboratory and microbiology Laboratory Tests 09/15/25 05:10 Test 09/15/25 05:10 Range/Units Serum Glucose 89 74-106 mg/dL Microbiology Date/Time Source Procedure Growth Status 09/12/25 13:07 Blood Blood Culture - Preliminary NO GROWTH AFTER 48 HOURS OF INCUBATION. Resulted 08/22/25 12:52 Urine - Meng Port Urine Culture - Final Complete 08/22/25 08:06 Nose MRSA Screen - Final Complete Problem List/Assessment/Plan Problem List/Assessment/Plan Neurology Sedation/analgesia Versed Discontinued Propofol: Discontinued Fentanyl discontinued # Metabolic encephalopathy due to Uremia/ Sepsis with anxiety/agitation/ delirium POA Creatinine continues to trend up. IR deferred tunneled catheter placement for now. Temporary hemodialysis catheter inserted Ordered ABG in context of no improvement in confusion. ABG resulted WNL Ordered noncontrast CT head. Underwent hemodialysis today PT consult requested Cardiovascular # Acute on chronic HFpEF (improving) # Pulmonary Edema BNP normalized; OA Chest xray 08/20/2025: Moderate to severe pulmonary edema Chest xray 08/21/2025: Cardiomegaly with pulmonary venous congestion and edema Echocardiogram 01/14/2022: EF > 60%, Limited echo windows, mild TR, MR Echocardiogram 10/22/2024: Technically good study sinus rhythm. Concentric LVH with left atrial enlargement. Mild aortic sclerosis. Mild thickening of the anterior and posterior mitral leaflets. Valves appear to be structurally normal. Left ventricular function is preserved at 60% with normal RV function. Cardiology: Pending echo, considered R/LHC if inconclusive , discontinue bumex drip Per nephrology: Trial of bumex + albumin and D5W 75 cc/hour. Bumex drip discontinued by cardiology. D5W has been discontinued due to resolution of hypernatremia Lasix discontinued Repeat CXR from 09/13/2025 shows pulmonary vascular congestion reduced in comparison to previous X-rays #Hypertension Continue Amlodipine 10 mg NG daily, Hydralazine 50 mg q8 #CAD Coronary angiogram done on 08/30/2025: Left main, LAD and circumflex are patent, RCA patent, EF is 50-55% #Severe pulmonary hypertension R/L heart catheterization 08/30/2025: RA pressure 18 mmHg, RV pressure 62/16 mmHg, pulmonary artery pressure 66/18 mmHg, capillary wedge pressure: 17 mmHg Per cardiology: Sildenafil 20mg NG TID, testing testing 40 but this was lowered Respiratory Ventilator Intubated (08/21/2025) Extubated (09/07/2025) # Acute hypercapnic respiratory failure secondary to pulmonary edema s/p Extubation # Acute hypoxic respiratory failure # Respiratory acidosis (resolving) Discontinued oxygen supplementation with Oxymizer Med neb treatment with Ipratropium, levalbuterol Mucomyst 100 mg q 8 hours PT evaluation requested Continue oxygen supplementation, currently on 6 L oxygen. Continue tapering as tolerated. # Acute COPD exacerbation Methylprednisolone 40 mg IV, discontinued Medneb treatment with Ipratropium medneb, Albuterol medneb Ceftriaxone 1 g IV daily (discontinued) # Community acquired pneumonia due to Gram-positive/Gram-negative pneumonia/ Influenza A and B POA Tamiflu 30 mg BID suspension, discontinued Discontinued Zosyn, continue vancomycin. Start IV Ceftriaxone Gastrointestinal NG tube reinserted (09/13/2025); failed swallow evaluation # Peptic ulcer prophylaxis Pantoprazole 40 mg IV daily # Constipation Lactulose 15 mL Genitourinary Replace Meng catheter (09/12/25) # Possible Complicated UTI, resolving UA positive for UTI Ceftriaxone 1 g IV daily, discontinued Previously switched cefepime to vancomycin and Zosyn Discontinue vancomycin and context of eosinophilia. Started on Rocephin Nephrology # COLE on CKD likely hemodynamically mediated/ VMN Supportive management with IV fluids given Nephrology on board, recommended hemodialysis Patient initially had dialysis catheter in the right femoral region, removed. Interventional radiology on board, tunneled catheter placement deferred till confirmation with negative blood cultures. Kidney ultrasound shows no acute abnormality Nephrology on board, recommended hemodialysis, richy Marie in the interim. Continue tube feeding, monitor fluid balances, strict I&Os Hemodialysis today # Hyperkalemia, resolved Per nephrology: trial of forced diuresis to enhance potassium excretion, serial chemistry panels, IV bicarbonate infusion, and avoidance of IV contrast if able. # Acute metabolic acidosis # Nephrotic syndrome secondary to underlying diabetic nephropathy, possible # Hypernatremia, resolved D5W, discontinued Infectious disease # Sepsis POA d/t below # Influenza A and B Pneumonia POA Serology positive for Influenza A & B Tamiflu 30 mg BID suspension, discontinued # Possible Complicated UTI, present on admission Ceftriaxone 1 g IV daily, discontinued Discontinued cefepime; continue vancomycin. Discontinued Zosyn. Started patient on IV Rocephin. Hem/oncology # Thrombocytopenia, resolved # Microcytic, hypochromic anemia Monitor CBC # Eosinophilia Switch Zosyn to IV Rocephin. We will consider discontinuing vancomycin tomorrow if the eosinophil count continues trending up. Monitor CBC Endocrine # Type 2 diabetes mellitus Mild Sliding scale Monitor blood glucose # Class 1 Obesity BMI 30 DVT prophylaxis: Heparin 5000 U BID PUD prophylaxis: Pantoprazole 40 mg IV daily Lines: - L femoral Central line 08/20/2025 - discontinued on 08/29/2025 - L internal jugular central line 08/29/2025 09/08/2025 - Meng catheter 08/20/2025 - ET tube: 08/21/2025 (extubated 09/07/2025) - Femoral Frank catheter: 08/30/2025- 09/10/2025 - Mid line: 09/08/2025 - Frank catheter 09/12/25 Nutrition: Nepro Critical care time 41 minutes excluding procedure. Goals of care discussed with nurses, Lev Susy (over telephonic conversation for >9 minutes). Plan discussed with Dr. Lopez Plan discussed with: Daughter, Other (nurses) My Orders My Orders Orders - GEHLAWAT,URIAH RESIDENT Procedure Category Date Status Time Head Without Contrast CT 09/14/25 Resulted 13:38 Pt Request For Service PT 09/15/25 Logged 09:05 Chest Portable XY 09/16/25 Logged 04:00 Complete Blood Count LAB 09/16/25 Verified 04:00 Comprehensive LAB 09/16/25 Verified Metabolic Panel 04:00 * Swallow Request ST 09/15/25 Transmitted 12:56 Ceftriaxone Ivpb PHA 09/16/25 Transmitted Rocephin 09:00 Ceftriaxone Ivpb PHA 09/15/25 Transmitted Rocephin 13:00 Dietary Evaluation Review Comments: Nutrition Recommendation: 1) EN Nepro Carbsteady @ 30ml/hr x 24hr (goal) along with Pro-stat 1 pk BID. Water flush 50ml Q6H if allowed, adjust PRN. TF at goal volume along with propofol & Pro-stat provide 1777 kcal (100%), 89 gm protein (83%), and 723 ml free water(including flush). 2) TPN if NPO >7 days 3) Monitor NPO status, lab values, weight trend, and I/O Expected Outcomes/Goals: Intake to meet >75% estimated needs Lab values to improve FU 2-3 days Date of Service: Sep 15, 2025 Billing Provider: PATRICIA LOPEZ MD Common Visit Codes: 48278-CEMTQUOR CARE 30-74 MIN URIAH NOBLE RESIDENT Sep 15, 2025 13:01 PATRICIA LOPEZ MD Sep 18, 2025 11:13
[2025-09-15] MEDS: VANCOMYCIN 500mg/100mL 100 ML IV ONE (13:53)
--- NOTE | 2025-09-15 14:00 | DVHPN2 ---
Progress Note Date Seen: Sep 15, 2025 Has the PT tested + for MRSA If YES, has PT been informed?: No Medical Necessity Reason Pt with a Central, PICC or Fol: Yes The following are medically ne: Meng Catheter Reason for meng catheter: Strict I&O Objective vital signs Vital Sign Date Time Temp Pulse Resp B/P (MAP) Pulse Ox O2 Delivery O2 Flow Rate FiO2 09/15/25 13:37 12 92 Oxymizer 10 N/A 09/15/25 13:37 91 09/15/25 13:01 134/57 (82) 09/15/25 08:01 99.3 99.3 Total Intake and Output 09/14/25 09/14/25 09/15/25 15:00 23:00 07:00 Intake Total 100 ml 105 ml 305 ml Output Total 250 ml 250 ml Balance 100 ml -145 ml 55 ml medications Current Medications Medications Dose Ordered Sig/Adri Route Start Time Stop Time Status Last Admin Dose Admin Multivit/Ca Carb/ B Cmplx/FA/Prenat 1 tab DAILY PO 08/21/25 10:00 09/15/25 07:47 1 TAB Diagnostic Test (Pha) 1 strip ACHS 08/21/25 07:00 09/15/25 10:31 1 STRIP Insulin Human Regular ACHS SC 08/21/25 07:00 09/11/25 12:03 2 UNITS Dextrose 50 ml UD PRN IV 08/20/25 23:15 Sodium Chloride 10 ml Q8HR IV 08/21/25 06:00 09/15/25 10:36 10 ML Docusate Sodium 100 mg BIDPRN PRN PO 08/20/25 23:15 Acetaminophen 650 mg Q6HP PRN PO 08/20/25 23:15 09/10/25 13:23 650 MG Nitroglycerin 0.4 mg Q5MINP PRN SL 08/20/25 23:15 Hold Pantoprazole Sodium 40 mg DAILY IV 08/22/25 10:00 09/15/25 07:47 40 MG Sildenafil Citrate 20 mg TID@08,14,20 NG 08/30/25 20:00 09/15/25 13:53 20 MG Amlodipine Besylate 10 mg DAILY PO 09/01/25 10:45 09/14/25 09:51 10 MG Enteral Nutritional Formula 1,000 ml 30ML/HR GT 09/02/25 18:45 09/14/25 13:50 1,000 ML Amino Acid Protein 30 ml Q6HR GT 09/03/25 00:00 09/15/25 05:56 30 ML Hydralazine HCl 50 mg Q8HR PO 09/05/25 22:00 09/15/25 05:55 50 MG Levalbuterol HCl 1.25 mg Q6HR NEB 09/09/25 12:00 09/15/25 11:11 1.25 MG Acetylcysteine 100 mg Q6HR NEB 09/09/25 12:00 09/15/25 11:12 100 MG Ipratropium [place] 0.5 mg Q6HR NEB 09/09/25 12:00 09/15/25 11:11 0.5 MG Vancomycin HCl 0 ml @ 0 mls/hr PER PHARMACY IV 09/12/25 16:15 Hydralazine HCl 10 mg Q6HP PRN IV 09/12/25 20:00 09/14/25 18:14 10 MG Heparin Sodium (Porcine) 5,000 units Q12HR SC 09/12/25 22:00 09/14/25 22:04 5,000 UNITS Albumin Human 100 ml @ 100 mls/hr PRN PRN IV 09/13/25 07:00 09/15/25 11:23 100 MLS/HR Ceftriaxone Sodium 50 ml @ 100 mls/hr DAILY@09 IV 09/16/25 09:00 Examination: GENERAL:Abnormal, LUNGS:Normal, CVS:Normal laboratory and microbiology Laboratory Tests 09/15/25 05:10 Test 09/15/25 05:10 Range/Units Serum Glucose 89 74-106 mg/dL Microbiology Date/Time Source Procedure Growth Status 09/12/25 13:07 Blood Blood Culture - Preliminary NO GROWTH AFTER 72 HOURS OF INCUBATION. Resulted 08/22/25 12:52 Urine - Meng Port Urine Culture - Final Complete 08/22/25 08:06 Nose MRSA Screen - Final Complete Problem List/Assessment/Plan Problem List/Assessment/Plan Acute kidney injury superimposed Chronic Kidney Disease stage III B secondary hemodynamic mediated, ATN Acute hypoxic respiratory failure, patient intubated on ventilator extubated Community-acquired pneumonia , influenza Diabetes mellitus type 2 Nephrotic syndrome secondary to underlying diabetic nephropathy hypertension BCX NGTD HD today WBC improving order radiology for tunnel HD catheter placement for friday tube feeding via NGT monitor fluid balances Strict I&Os kidney ultrasound reported within normal limit IV antibiotics Avoid nephrotoxic medications will need chairtime after TC is placed Plan discussed with: Patient My Orders My Orders Orders - KELLY DIAZ MD Procedure Category Date Status Time Hemodialysis Orders ORDERS 09/15/25 Transmitted 07:00 Dialysis Nursing [facility] 09/15/25 In Process Message 07:00 Document Fluid Input [facility] 09/15/25 In Process And Outpu 07:00 Dietary Evaluation Review Comments: Nutrition Recommendation: 1) EN Nepro Carbsteady @ 30ml/hr x 24hr (goal) along with Pro-stat 1 pk BID. Water flush 50ml Q6H if allowed, adjust PRN. TF at goal volume along with propofol & Pro-stat provide 1777 kcal (100%), 89 gm protein (83%), and 723 ml free water(including flush). 2) TPN if NPO >7 days 3) Monitor NPO status, lab values, weight trend, and I/O Expected Outcomes/Goals: Intake to meet >75% estimated needs Lab values to improve FU 2-3 days KELLY DIAZ MD Sep 15, 2025 14:00
[2025-09-16] VITALS (38 sets, daily range): BP systolic 131–164; BP diastolic 49–76; PULSE 83–106; RESP 10–28; TEMP 97.9–99; O2SAT 90–100
[2025-09-16 05:39] LABS: Hematocrit 34.5 % (36.0-46.0); Hemoglobin 10.0 g/dL (12.2-16.2); Mean Corpuscular Hemoglobin 19.1 pg (28.0-32.0); Mean Corpuscular Volume 66.2 fL (80.0-100.0); Nucleated Red Blood Cells % 0.1 %
--- NOTE | 2025-09-16 05:47 | DVH ---
CHEST RADIOGRAPH INDICATION: r/o pulmonary edema TECHNIQUE: Single frontal view of the chest was obtained COMPARISON: XY CHEST PORTABLE on DOS: 09/13/25, XY CHEST PORTABLE on DOS: 09/12/25, XY CHEST XRAY 1 VIEW on DOS: 09/08/25, XY CHEST XRAY 1 VIEW on DOS: 09/07/25, XY CHEST XRAY 1 VIEW on DOS: 09/06/25 FINDINGS: Lines and Tubes: Unchanged. Lungs: Stable diffuse increased prominence of the pulmonary vasculature and small bilateral pleural effusions. No pneumothorax. Cardiomediastinal contours: Cardiomegaly. Bones: Unremarkable IMPRESSION: 1. Stable pulmonary vascular congestion and small pleural effusions. 2. Cardiomegaly. 3. Lines and tubes unchanged.
[2025-09-16 05:56] LABS: Alanine Aminotransferase 20 U/L (7-40); Albumin 3.5 g/dL (3.2-4.8); Alkaline Phosphatase 77 U/L (46-116); Anion Gap 13 (5-15); BUN/Creatinine Ratio 5.5 (10.0-20.0); Calcium 8.8 mg/dL (8.7-10.4); Carbon Dioxide 26 mmol/L (20-31); Chloride 101 mmol/L (98-107); Glucose 78 mg/dL (74-106); Sodium 140 mmol/L (136-145); Total Protein 6.7 g/dL (5.7-8.2)
[2025-09-16 05:57] LABS: Bilirubin, Total 0.4 mg/dL (0.2-1.0)
[2025-09-16 06:00] LABS: Blood Urea Nitrogen 27 mg/dL (9-23); Potassium 3.5 mmol/L (3.5-5.1)
[2025-09-16 06:21] LABS: Anisocytosis Moderate; Ovalocytes FEW
[2025-09-16] MEDS: ONDANSETRON HCL 4 MG/2 ML VIAL IV ONE (09:45)
--- NOTE | 2025-09-16 10:36 | DVHPNRES ---
Progress Note Date Seen: Sep 16, 2025 Resident Creating Document: URIAH NOBLE RESIDENT Has the PT tested + for MRSA If YES, has PT been informed?: No Medical Necessity Reason Pt with a Central, PICC or Fol: Yes The following are medically ne: Meng Catheter Reason for meng catheter: Strict I&O Subjective Review of Systems Ms. Marin is a 75-year-old female with prior medical history of HFpEF, COPD with home oxygen, gout, anxiety, type 2 diabetes mellitus, hyperlipidemia, hypertension, and PAD, who bas brought to the [facility] by EMS with chief complaint of shortness of breath and back and midsternal non-radiating chest pain. Daughter reported progressively worsening shortness of breath for the last 2 weeks associated with general malaise and orthopnea, describing very wet coughing sounds when her mother lays flat. She states that her mother began complaining of worsening shortness of breath associated with non-radiating midsternal chest pain which prompted her to call EMS. Per record, on seen she was saturating 74%, she was placed on CPAP with inspiration increasing to 88% on route to the emergency department. On evaluation in the ED, patient was afebrile, slightly hypertensive, and tachypneic, saturating 81% which she was placed on BiPAP. Initial labs significant for leukocytosis of 11.3, with elevated hematocrit, and thrombocytopenia, hyperkalemia, creatinine 4.09, BUN 46, and ABG significant for respiratory acidosis, troponins are negative, BNP 2515.41. Serology was positive for influenza A and B. Chest x-ray showed moderate to severe pulmonary edema. Patient further deteriorated requiring intubation for respiratory distress. She was started on IV Lasix, IV methylprednisolone, hyperkalemia protocol, bicarbonate drip, and nitroglycerin drip. Prior Medical history: CHF, COPD, gout, anxiety, type 2 diabetes mellitus, hyperlipidemia, hypertension, PAD, pulmonary hypertension Previous surgical history: Left leg stenting for PAD Allergies: Denies Social history: Daughter reports the patient smokes cigarettes with cessation approximately 20 years ago Home medications: Allopurinol, insulin, gabapentin, simvastatin, tadalafil 09/12/25: The patient was seen at bedside. Patient appeared agitated. Patient has tachycardia, tachypnea. Daughter on bedside, reports that the patient is able to recognize her. Although since the patient is non-verbal, unable to obtain any history from the patient, Daughter reports baseline- patient is able to communicate and function mostly independently at home. She is status post extubation (09/07/25), on 6 L oxymizer. IR on board, tunneled catheter pending set of negative blood cultures in context of sepsis. We will obtain a temporary hemodialysis line considering the creatinine trending up. Will replace Meng catheter today. We will do a trial of swallow evaluation when feasible. 09/13/25: The patient was seen at bedside. Patient continues to remain agitated, failed swallow evaluation and NG tube placement owing to non-cooperation. She underwent placement of temporary dialysis catheter & replacement of meng yesterday. Yesterday we discontinued cefepime, patient currently on Vancomycin & Zosyn. Patient underwent hemodialysis today. Her p.o blood pressure medications are on hold; currently IV hydralazine PRN. Her WBC count came down to 14.7 today. CXR shows reduced pulmonary vascular congestion from the baseline. We will re-attempt NG tube placement today with Ativan. 09/14/25: The patient was seen at bedside. Patient continues to remain confused and agitated. Patient underwent NG tube placement with confirmation with CXR. No significant overnight events. Patient's care plan discussed in detail with daughter and sister (Ewa). 09/15/25: The patient was seen at bedside. Patient was transferred to [facility] CT head done yesterday shows partially calcified lesion, possibly meningioma, no acute abnormality seen. Patient appeared calm today. Patient is admitted with tachypnea, went up on oxygen, on 6 L. Undergoing hemodialysis today. We will request a swallow evaluation. Patient's CBC shows eosinophilia, discontinued Zosyn. Started patient on IV Rocephin. We will consider discontinuing vancomycin tomorrow if the eosinophil count continues trending up. 1025: Patient was seen at bedside. Patient is A&O x3 today, she continues to have episodic confusion. Yesterday, Zosyn was discontinued and patient was started on ceftriaxone. Patient failed swallow evaluation, continue NPO. Chest x-ray showed stable pulmonary vascular congestion and small pleural effusion. Today, patient had 1 episode of vomiting. Patient will undergo tunneled hemodialysis catheter placement with IR after a negative 3rd set of blood culture cultures. Objective vital signs Vital Sign Date Time Temp Pulse Resp B/P (MAP) Pulse Ox O2 Delivery O2 Flow Rate FiO2 09/16/25 10:00 172/70 09/16/25 06:00 105 09/16/25 06:00 25 94 Oxymizer 8 N/A 09/16/25 00:01 98.9 98.9 Total Intake and Output 09/15/25 09/15/25 09/16/25 15:00 23:00 07:00 Intake Total 100 ml 280 ml Output Total 200 ml 175 ml Balance -100 ml 105 ml medications Current Medications Medications Dose Ordered Sig/Adri Route Start Time Stop Time Status Last Admin Dose Admin Multivit/Ca Carb/ B Cmplx/FA/Prenat 1 tab DAILY PO 08/21/25 10:00 09/15/25 07:47 1 TAB Diagnostic Test (Pha) 1 strip ACHS 08/21/25 07:00 09/16/25 06:17 1 STRIP Insulin Human Regular ACHS SC 08/21/25 07:00 09/11/25 12:03 2 UNITS Dextrose 50 ml UD PRN IV 08/20/25 23:15 Sodium Chloride 10 ml Q8HR IV 08/21/25 06:00 09/16/25 06:15 10 ML Docusate Sodium 100 mg BIDPRN PRN PO 08/20/25 23:15 Acetaminophen 650 mg Q6HP PRN PO 08/20/25 23:15 09/10/25 13:23 650 MG Nitroglycerin 0.4 mg Q5MINP PRN SL 08/20/25 23:15 Hold Pantoprazole Sodium 40 mg DAILY IV 08/22/25 10:00 09/16/25 09:57 40 MG Sildenafil Citrate 20 mg TID@08,14,20 NG 08/30/25 20:00 09/15/25 20:22 20 MG Amlodipine Besylate 10 mg DAILY PO 09/01/25 10:45 09/14/25 09:51 10 MG Enteral Nutritional Formula 1,000 ml 30ML/HR GT 09/02/25 18:45 09/16/25 06:25 1,000 ML Amino Acid Protein 30 ml Q6HR GT 09/03/25 00:00 09/16/25 06:17 30 ML Hydralazine HCl 50 mg Q8HR PO 09/05/25 22:00 09/16/25 06:16 50 MG Levalbuterol HCl 1.25 mg Q6HR NEB 09/09/25 12:00 09/16/25 07:07 1.25 MG Acetylcysteine 100 mg Q6HR NEB 09/09/25 12:00 09/16/25 07:07 100 MG Ipratropium [place] 0.5 mg Q6HR NEB 09/09/25 12:00 09/16/25 07:06 0.5 MG Vancomycin HCl 0 ml @ 0 mls/hr PER PHARMACY IV 09/12/25 16:15 Hydralazine HCl 10 mg Q6HP PRN IV 09/12/25 20:00 09/14/25 18:14 10 MG Heparin Sodium (Porcine) 5,000 units Q12HR SC 09/12/25 22:00 09/16/25 10:10 5,000 UNITS Albumin Human 100 ml @ 100 mls/hr PRN PRN IV 09/13/25 07:00 09/15/25 11:23 100 MLS/HR Ceftriaxone Sodium 50 ml @ 100 mls/hr DAILY@09 IV 09/16/25 09:00 09/16/25 09:57 100 MLS/HR Examination General: Patient appeared calm and somewhat cooperative today, although patient is unable to follow commands. Patient is A&O x3 HEENT: Dry mucous membranes. Nystagmus POA Respiratory/pulmonary: Normal breath sounds heard Cardiovascular: Tachycardia. Normal heart sounds S1 and S2 with no associated murmurs. Abdomen: Abdomen nondistended, normal bowel sounds. Extremities: Dry, crusted planter surface of bilateral feet. SCDs present bilaterally. laboratory and microbiology Laboratory Tests 09/16/25 09:46 09/16/25 05:00 Test 09/16/25 05:00 Range/Units Serum Glucose 78 74-106 mg/dL Microbiology Date/Time Source Procedure Growth Status 09/12/25 13:07 Blood Blood Culture - Preliminary NO GROWTH AFTER 72 HOURS OF INCUBATION. Resulted 08/22/25 12:52 Urine - Meng Port Urine Culture - Final Complete 08/22/25 08:06 Nose MRSA Screen - Final Complete Problem List/Assessment/Plan Problem List/Assessment/Plan Neurology Sedation/analgesia Versed Discontinued Propofol: Discontinued Fentanyl discontinued # Metabolic encephalopathy due to Uremia/ Sepsis with anxiety/agitation/ delirium POA Creatinine continues to trend up. IR deferred tunneled catheter placement for now. Temporary hemodialysis catheter inserted Ordered ABG in context of no improvement in confusion. ABG resulted WNL Ordered noncontrast CT head. Underwent hemodialysis today PT on board Cardiovascular # Acute on chronic HFpEF (improving) # Pulmonary Edema BNP normalized; OA Chest xray 08/20/2025: Moderate to severe pulmonary edema Chest xray 08/21/2025: Cardiomegaly with pulmonary venous congestion and edema Echocardiogram 01/14/2022: EF > 60%, Limited echo windows, mild TR, MR Echocardiogram 10/22/2024: Technically good study sinus rhythm. Concentric LVH with left atrial enlargement. Mild aortic sclerosis. Mild thickening of the anterior and posterior mitral leaflets. Valves appear to be structurally normal. Left ventricular function is preserved at 60% with normal RV function. Cardiology: Pending echo, considered R/LHC if inconclusive , discontinue bumex drip Per nephrology: Trial of bumex + albumin and D5W 75 cc/hour. Bumex drip discontinued by cardiology. D5W has been discontinued due to resolution of hypernatremia Lasix discontinued Repeat CXR from 09/13/2025 shows pulmonary vascular congestion reduced in comparison to previous X-rays Chest x-ray from 09/15/2025 shows stable pulmonary vascular congestion and small pleural effusions #Hypertension Continue Amlodipine 10 mg NG daily, Hydralazine 50 mg q8 #CAD Coronary angiogram done on 08/30/2025: Left main, LAD and circumflex are patent, RCA patent, EF is 50-55% #Severe pulmonary hypertension R/L heart catheterization 08/30/2025: RA pressure 18 mmHg, RV pressure 62/16 mmHg, pulmonary artery pressure 66/18 mmHg, capillary wedge pressure: 17 mmHg Per cardiology: Sildenafil 20mg NG TID, testing testing 40 but this was lowered Respiratory Ventilator Intubated (08/21/2025) Extubated (09/07/2025) # Acute hypercapnic respiratory failure secondary to pulmonary edema s/p Extubation # Acute hypoxic respiratory failure # Respiratory acidosis (resolving) Discontinued oxygen supplementation with Oxymizer Med neb treatment with Ipratropium, levalbuterol Mucomyst 100 mg q 8 hours PT evaluation requested Continue oxygen supplementation, currently on 6 L oxygen. Continue tapering as tolerated. # Acute COPD exacerbation Methylprednisolone 40 mg IV, discontinued Medneb treatment with Ipratropium medneb, Albuterol medneb Ceftriaxone 1 g IV daily (discontinued) # Community acquired pneumonia due to Gram-positive/Gram-negative pneumonia/ Influenza A and B POA Tamiflu 30 mg BID suspension, discontinued Discontinued Zosyn, continue vancomycin. Start IV Ceftriaxone Gastrointestinal NG tube reinserted (09/13/2025); failed swallow evaluation # Peptic ulcer prophylaxis Pantoprazole 40 mg IV daily # Constipation Lactulose 15 mL Genitourinary Replace Meng catheter (09/12/25) # Possible Complicated UTI, resolving UA positive for UTI Ceftriaxone 1 g IV daily, discontinued Previously switched cefepime to vancomycin and Zosyn Discontinue vancomycin and context of eosinophilia. Started on Rocephin Nephrology # COLE on CKD likely hemodynamically mediated/ VMN Supportive management with IV fluids given Nephrology on board, recommended hemodialysis Patient initially had dialysis catheter in the right femoral region, removed. Interventional radiology on board, tunneled catheter placement deferred till confirmation with negative blood cultures. Kidney ultrasound shows no acute abnormality Nephrology on board, recommended hemodialysis, richy Marie in the interim. Continue tube feeding, monitor fluid balances, strict I&Os Hemodialysis today # Hyperkalemia, resolved Per nephrology: trial of forced diuresis to enhance potassium excretion, serial chemistry panels, IV bicarbonate infusion, and avoidance of IV contrast if able. # Acute metabolic acidosis # Nephrotic syndrome secondary to underlying diabetic nephropathy, possible # Hypernatremia, resolved D5W, discontinued Infectious disease # Sepsis POA d/t below # Influenza A and B Pneumonia POA Serology positive for Influenza A & B Tamiflu 30 mg BID suspension, discontinued # Possible Complicated UTI, present on admission Ceftriaxone 1 g IV daily, discontinued Discontinued cefepime; continue vancomycin. Discontinued Zosyn. Started patient on IV Rocephin. Hem/oncology # Thrombocytopenia, resolved # Microcytic, hypochromic anemia # Heparin induced thrombocytopenia type 1, possible Intermediate possibility of HIT on 4Ts score Platelet count trending down, consider discontinuing heparin if platelet count continues to trend down; absolute contraindication<50 K. Can also consider discontinuing vancomycin Monitor CBC # Eosinophilia Switched Zosyn to IV Rocephin. Eosinophil counts went down today, can consider discontinuing vancomycin tomorrow if the eosinophil count remains high. Monitor CBC Endocrine # Type 2 diabetes mellitus Mild Sliding scale Monitor blood glucose # Class 1 Obesity BMI 30 DVT prophylaxis: Heparin 5000 U BID PUD prophylaxis: Pantoprazole 40 mg IV daily Lines: - L femoral Central line 08/20/2025 - discontinued on 08/29/2025 - L internal jugular central line 08/29/2025 09/08/2025 - Meng catheter 08/20/2025 - ET tube: 08/21/2025 (extubated 09/07/2025) - Femoral Frank catheter: 08/30/2025- 09/10/2025 - Mid line: 09/08/2025 - Frank catheter 09/12/25 Nutrition: Nepro Critical care time 73 minutes excluding procedure. Goals of care discussed with nurses, DaughterSusy on bedside. Plan discussed with Dr. Martell Plan discussed with: Daughter, Other (nurses) My Orders My Orders Orders - URIAH NOBLE RESIDENT Procedure Category Date Status Time Chest Portable XY 09/16/25 Resulted 04:00 * Swallow Request ST 09/15/25 Transmitted 12:56 Ceftriaxone 1gm/50ml PHA 09/16/25 In Process (Rocephin) 09:00 Pt Request For Service PT 09/16/25 Logged 09:09 Dietary Evaluation Review Comments: Nutrition Recommendation: 1) EN Nepro Carbsteady @ 30ml/hr x 24hr (goal) along with Pro-stat 1 pk BID. Water flush 50ml Q6H if allowed, adjust PRN. TF at goal volume along with propofol & Pro-stat provide 1777 kcal (100%), 89 gm protein (83%), and 723 ml free water(including flush). 2) TPN if NPO >7 days 3) Monitor NPO status, lab values, weight trend, and I/O Expected Outcomes/Goals: Intake to meet >75% estimated needs Lab values to improve FU 2-3 days URIAH NOBLE RESIDENT Sep 16, 2025 10:36
--- NOTE | 2025-09-16 13:57 | DVHPN2 ---
Progress Note Date Seen: Sep 16, 2025 Has the PT tested + for MRSA If YES, has PT been informed?: No Medical Necessity Reason Pt with a Central, PICC or Fol: Yes The following are medically ne: Meng Catheter Reason for meng catheter: Strict I&O Subjective Changes from previous H/P or p: No Changes Objective vital signs Vital Sign Date Time Temp Pulse Resp B/P (MAP) Pulse Ox O2 Delivery O2 Flow Rate FiO2 09/16/25 13:09 168/69 09/16/25 11:45 102 24 100 09/16/25 11:45 Oxymizer 3 N/A 09/16/25 00:01 98.9 98.9 Total Intake and Output 09/15/25 09/15/25 09/16/25 15:00 23:00 07:00 Intake Total 100 ml 280 ml Output Total 200 ml 175 ml Balance -100 ml 105 ml medications Current Medications Medications Dose Ordered Sig/Adri Route Start Time Stop Time Status Last Admin Dose Admin Multivit/Ca Carb/ B Cmplx/FA/Prenat 1 tab DAILY PO 08/21/25 10:00 09/16/25 13:08 1 TAB Diagnostic Test (Pha) 1 strip ACHS 08/21/25 07:00 09/16/25 11:45 1 STRIP Insulin Human Regular ACHS SC 08/21/25 07:00 09/11/25 12:03 2 UNITS Dextrose 50 ml UD PRN IV 08/20/25 23:15 Sodium Chloride 10 ml Q8HR IV 08/21/25 06:00 09/16/25 06:15 10 ML Docusate Sodium 100 mg BIDPRN PRN PO 08/20/25 23:15 Acetaminophen 650 mg Q6HP PRN PO 08/20/25 23:15 09/10/25 13:23 650 MG Nitroglycerin 0.4 mg Q5MINP PRN SL 08/20/25 23:15 Hold Pantoprazole Sodium 40 mg DAILY IV 08/22/25 10:00 09/16/25 09:57 40 MG Sildenafil Citrate 20 mg TID@08,14,20 NG 08/30/25 20:00 09/15/25 20:22 20 MG Amlodipine Besylate 10 mg DAILY PO 09/01/25 10:45 09/16/25 13:09 10 MG Enteral Nutritional Formula 1,000 ml 30ML/HR GT 09/02/25 18:45 09/16/25 06:25 1,000 ML Amino Acid Protein 30 ml Q6HR GT 09/03/25 00:00 09/16/25 13:06 30 ML Hydralazine HCl 50 mg Q8HR PO 09/05/25 22:00 09/16/25 06:16 50 MG Levalbuterol HCl 1.25 mg Q6HR NEB 09/09/25 12:00 09/16/25 11:44 1.25 MG Acetylcysteine 100 mg Q6HR NEB 09/09/25 12:00 09/16/25 11:45 100 MG Ipratropium [place] 0.5 mg Q6HR NEB 09/09/25 12:00 09/16/25 11:44 0.5 MG Vancomycin HCl 0 ml @ 0 mls/hr PER PHARMACY IV 09/12/25 16:15 Hydralazine HCl 10 mg Q6HP PRN IV 09/12/25 20:00 09/14/25 18:14 10 MG Heparin Sodium (Porcine) 5,000 units Q12HR SC 09/12/25 22:00 09/16/25 10:10 5,000 UNITS Albumin Human 100 ml @ 100 mls/hr PRN PRN IV 09/13/25 07:00 09/15/25 11:23 100 MLS/HR Ceftriaxone Sodium 50 ml @ 100 mls/hr DAILY@09 IV 09/16/25 09:00 09/16/25 09:57 100 MLS/HR Examination: GENERAL:Normal, CVS:Normal laboratory and microbiology Laboratory Tests 09/16/25 09:46 09/16/25 05:00 Test 09/16/25 05:00 Range/Units Serum Glucose 78 74-106 mg/dL Microbiology Date/Time Source Procedure Growth Status 09/12/25 13:07 Blood Blood Culture - Preliminary NO GROWTH AFTER 72 HOURS OF INCUBATION. Resulted 08/22/25 12:52 Urine - Meng Port Urine Culture - Final Complete 08/22/25 08:06 Nose MRSA Screen - Final Complete Problem List/Assessment/Plan Problem List/Assessment/Plan Acute kidney injury superimposed Chronic Kidney Disease stage III B secondary hemodynamic mediated, ATN on dialysis Acute hypoxic respiratory failure, patient intubated on ventilator extubated Community-acquired pneumonia , influenza Diabetes mellitus type 2 Nephrotic syndrome secondary to underlying diabetic nephropathy hypertension BCX NGTD HD tomorrow WBC improving pending TC placement after neg BCX tube feeding via NGT monitor fluid balances Strict I&Os kidney ultrasound reported within normal limit IV antibiotics Avoid nephrotoxic medications will need chairtime after TC is placed Plan discussed with: Patient My Orders My Orders Orders - KELLY DIAZ MD Procedure Category Date Status Time * Radiologist Consult CONS 09/15/25 Transmitted 13:58 Dietary Evaluation Review Comments: Nutrition Recommendation: 1) EN Nepro Carbsteady @ 30ml/hr x 24hr (goal) along with Pro-stat 1 pk BID. Water flush 50ml Q6H if allowed, adjust PRN. TF at goal volume along with propofol & Pro-stat provide 1777 kcal (100%), 89 gm protein (83%), and 723 ml free water(including flush). 2) TPN if NPO >7 days 3) Monitor NPO status, lab values, weight trend, and I/O Expected Outcomes/Goals: Intake to meet >75% estimated needs Lab values to improve FU 2-3 days KELLY DIAZ MD Sep 16, 2025 13:57
--- NOTE | 2025-09-16 13:58 | DVHPN2 ---
Progress Note - Dictate Date Seen: Sep 16, 2025 Has the PT tested + for MRSA If YES, has PT been informed?: No Medical Necessity Reason Pt with a Central, PICC or Fol: Yes The following are medically ne: Meng Catheter Reason for meng catheter: Strict I&O Subjective PT WELL KNOWN TO ME ORGANIC HEART DISEASE CAD HFrEF HTN 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 HYPERKALEMIA COPD HYPERLIPIDEMIA SIGN SX COMPLEX OF NOW WITH SOB CHEST PAIN RENAL FAILURE HYPERKALEMIA RESP FAILURE REQUIRING INTUBATION vital signs Vital Sign Date Time Temp Pulse Resp B/P (MAP) Pulse Ox O2 Delivery O2 Flow Rate FiO2 09/16/25 13:09 168/69 09/16/25 11:45 102 24 100 09/16/25 11:45 Oxymizer 3 N/A 09/16/25 00:01 98.9 98.9 Total Intake and Output 09/15/25 09/15/25 09/16/25 15:00 23:00 07:00 Intake Total 100 ml 280 ml Output Total 200 ml 175 ml Balance -100 ml 105 ml medications Current Medications Medications Dose Ordered Sig/Adri Route Start Time Stop Time Status Last Admin Dose Admin Multivit/Ca Carb/ B Cmplx/FA/Prenat 1 tab DAILY PO 08/21/25 10:00 09/16/25 13:08 1 TAB Diagnostic Test (Pha) 1 strip ACHS 08/21/25 07:00 09/16/25 11:45 1 STRIP Insulin Human Regular ACHS SC 08/21/25 07:00 09/11/25 12:03 2 UNITS Dextrose 50 ml UD PRN IV 08/20/25 23:15 Sodium Chloride 10 ml Q8HR IV 08/21/25 06:00 09/16/25 06:15 10 ML Docusate Sodium 100 mg BIDPRN PRN PO 08/20/25 23:15 Acetaminophen 650 mg Q6HP PRN PO 08/20/25 23:15 09/10/25 13:23 650 MG Nitroglycerin 0.4 mg Q5MINP PRN SL 08/20/25 23:15 Hold Pantoprazole Sodium 40 mg DAILY IV 08/22/25 10:00 09/16/25 09:57 40 MG Sildenafil Citrate 20 mg TID@08,14,20 NG 08/30/25 20:00 09/15/25 20:22 20 MG Amlodipine Besylate 10 mg DAILY PO 09/01/25 10:45 09/16/25 13:09 10 MG Enteral Nutritional Formula 1,000 ml 30ML/HR GT 09/02/25 18:45 09/16/25 06:25 1,000 ML Amino Acid Protein 30 ml Q6HR GT 09/03/25 00:00 09/16/25 13:06 30 ML Hydralazine HCl 50 mg Q8HR PO 09/05/25 22:00 09/16/25 06:16 50 MG Levalbuterol HCl 1.25 mg Q6HR NEB 09/09/25 12:00 09/16/25 11:44 1.25 MG Acetylcysteine 100 mg Q6HR NEB 09/09/25 12:00 09/16/25 11:45 100 MG Ipratropium [place] 0.5 mg Q6HR NEB 09/09/25 12:00 09/16/25 11:44 0.5 MG Vancomycin HCl 0 ml @ 0 mls/hr PER PHARMACY IV 09/12/25 16:15 Hydralazine HCl 10 mg Q6HP PRN IV 09/12/25 20:00 09/14/25 18:14 10 MG Heparin Sodium (Porcine) 5,000 units Q12HR SC 09/12/25 22:00 09/16/25 10:10 5,000 UNITS Albumin Human 100 ml @ 100 mls/hr PRN PRN IV 09/13/25 07:00 09/15/25 11:23 100 MLS/HR Ceftriaxone Sodium 50 ml @ 100 mls/hr DAILY@09 IV 09/16/25 09:00 09/16/25 09:57 100 MLS/HR laboratory and microbiology Laboratory Tests 09/16/25 09:46 09/16/25 05:00 Test 09/16/25 05:00 Range/Units Serum Glucose 78 74-106 mg/dL Problem List ORGANIC HEART DISEASE CAD HFrEF HTN 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 HYPERKALEMIA COPD HYPERLIPIDEMIA SIGN SX COMPLEX OF NOW WITH SOB CHEST PAIN RENAL FAILURE HYPERKALEMIA RESP FAILURE REQUIRING INTUBATION EXTUBATED MENINGIOMA NO CHANGE Assessment/Plan CORRECT HYPERKALEMIA CONSIDER ECHO IF INCONCLUSIVE CONSIDER L/RHC BNP 370 ABX DC BUMEX START IVF AT 100 CC/HR ADD LOKELMA K+ CORRECTED REPEAT BNP WILL PROCEED WITH L/RHC ON FRIDAY POSITIVE FOR INFLUENZA A AND B POSITIVE START WEANING PT CON IV FLUID L/RHC NL CORONARIES EF >50% LVEDP 17mmHg RHC RA 15-27mmHg RV 62/17 PA`66/ 18 PCWP 17 SEVERE PUL HYPERTENSION START REVATIO 20 MG TID HEMODIALYSIS IN AM CHEST CXR STILL WITH INFILTRATIVE PROCESS START WEAN SEDATION WITH HD SIGNIFICANT IMPROVEMENT IN LUNG EFFUSION AND INFILTRATE STOP SEDATION WEAN PT OFF VENT OTHERWISE CONSIDER TRACH CHEST CXR APPEARS TO HAVE IMPROVED SIGNIFICANTLY COMPARED TO 08/29/25 LAST RIGHT SIDED EFFUSION SIGNIFICANT CLEARING OF INTERSTITIAL INFILTRATE OFF SEDATION EXTUBATED DIALYSIS UREMIC LEUKOCYTOSIS CXR ABG RESP ACIDOSIS IMPROVED WITH LOWER O2 LEUKOCYTOSIS CONSIDER CT CHEST CXR STABLE WITH MILD IMPROVEMENT OF INFILTRATE PT REVIEWED LABS: NA, K, AND CL ARE NORMAL Dietary Evaluation Review Comments: Nutrition Recommendation: 1) EN Nepro Carbsteady @ 30ml/hr x 24hr (goal) along with Pro-stat 1 pk BID. Water flush 50ml Q6H if allowed, adjust PRN. TF at goal volume along with propofol & Pro-stat provide 1777 kcal (100%), 89 gm protein (83%), and 723 ml free water(including flush). 2) TPN if NPO >7 days 3) Monitor NPO status, lab values, weight trend, and I/O Expected Outcomes/Goals: Intake to meet >75% estimated needs Lab values to improve FU 2-3 days Plan discussed with: Patient RAMIN GARCIA MD Sep 16, 2025 13:58
[2025-09-16] MEDS: BUMETANIDE 2.5mg/10ml (0.25 mg/ml) INJ IV SCH (15:22)
[2025-09-16] MEDS: IPRATROPIUM BROM 0.5 MG/2.5ML INH SOL ONE (19:06)
[2025-09-16] MEDS: ACETYLCYSTEINE 10 %(100MG/ML) SOL 4ML ONE (19:06)
[2025-09-16] MEDS: LEVALBUTEROL HCL 1.25 MG/3 ML NEB ONE (19:06)
--- NOTE | 2025-09-16 22:15 | DVHPN2 ---
Subjective DOS: 09/16/2025 Patient seen and examined at bedside. On supplemental oxygen Overnight events reviewed. Changes from previous H/P or p: No Changes Eyes: No Pain, No Vision change, No Conjunctivae inflammation, No Eyelid inflammation, No Other, No Redness ENT: No Ear pain, No Ear discharge, No Nose pain, No Nose discharge, No Nose congestion, No Mouth pain, No Mouth swelling, No Throat pain, No Throat swelling, No Other Cardiovascular: Chest Pain; No Palpitations, No Orthopnea, No Paroxysmal Noc. Dyspnea, No Edema, No Lt Headedness, No Other Respiratory: No Cough, No Dry; Shortness of breath; No SOB with excertion, No Wheezing, No Hemoptysis, No Pleuritic Pain, No Sputum; Other (SOB at rest) Gastrointestinal: No Nausea, No Vomiting, No Abdominal Pain, No Diarrhea, No Constipation, No Melena, No Hematochezia, No Other Genitourinary: No Dysuria, No Frequency, No Incontinence, No Hematuria, No Retention; Other (Schuster catheter in place) Musculoskeletal: other (Bilateral leg discoloration); No neck pain, No shoulder pain, No arm pain, No back pain, No hand pain, No leg pain, No foot pain Skin: No Rash, No Lesions, No Jaundice, No Bruising; Other (Left foot wound) Objective Vitals Vital Signs Date Time Temp Pulse Resp B/P (MAP) Pulse Ox O2 Delivery O2 Flow Rate FiO2 09/16/25 19:15 86 12 100 09/16/25 19:05 Nasal Cannula 3.0 09/16/25 19:05 32 09/16/25 19:00 153/58 (89) 09/16/25 16:00 97.9 97.9 Intake/Output Intake and Output 09/16/25 07:00 Intake Total 380 ml Output Total 375 ml Balance 5 ml Intake Oral 250 ml Tube Feeding 130 ml Output Urine Total 375 ml # Bowel Movements 4 Exam Gen.: Patient lying in bed in no apparent distress. On supplemental oxygen. Head: Normocephalic, atraumatic. Eyes: EOMI/PERRLA. Ears: Normal hearing. Normal anatomy. Neck/trachea: Trachea midline, supple. Nose: Normal external anatomy. Mouth: Moist mucous membranes. Chest: Decreased air entry bilaterally. No wheezing or rhonchi. Cardiovascular: Positive S1, positive S2. Regular rate and rhythm. Abdomen: Positive bowel sounds in all 4 quadrants. Soft, non-tender, non- distended. : Deferred. Rectal: Deferred. Skin: Warm, dry. Intact. Extremities: 2+ radial pulses bilaterally. No lower extremity edema. Neuro: Awake, alert, oriented x3. No gross motor or sensory deficits. Cranial nerves II through XII intact. Gait not assessed. Medications Current Medications Medications Dose Ordered Sig/Adri Route Start Time Stop Time Status Last Admin Dose Admin Multivit/Ca Carb/ B Cmplx/FA/Prenat 1 tab DAILY PO 08/21/25 10:00 09/16/25 13:08 1 TAB Diagnostic Test (Pha) 1 strip ACHS 08/21/25 07:00 09/16/25 21:37 1 STRIP Insulin Human Regular ACHS SC 08/21/25 07:00 09/16/25 17:58 2 UNITS Dextrose 50 ml UD PRN IV 08/20/25 23:15 Sodium Chloride 10 ml Q8HR IV 08/21/25 06:00 09/16/25 21:36 10 ML Docusate Sodium 100 mg BIDPRN PRN PO 08/20/25 23:15 Acetaminophen 650 mg Q6HP PRN PO 08/20/25 23:15 09/10/25 13:23 650 MG Nitroglycerin 0.4 mg Q5MINP PRN SL 08/20/25 23:15 Hold Pantoprazole Sodium 40 mg DAILY IV 08/22/25 10:00 09/16/25 09:57 40 MG Sildenafil Citrate 20 mg TID@08,14,20 NG 08/30/25 20:00 09/16/25 21:36 20 MG Amlodipine Besylate 10 mg DAILY PO 09/01/25 10:45 09/16/25 13:09 10 MG Enteral Nutritional Formula 1,000 ml 30ML/HR GT 09/02/25 18:45 09/16/25 06:25 1,000 ML Amino Acid Protein 30 ml Q6HR GT 09/03/25 00:00 09/16/25 18:10 30 ML Hydralazine HCl 50 mg Q8HR PO 09/05/25 22:00 09/16/25 15:22 50 MG Levalbuterol HCl 1.25 mg Q6HR NEB 09/09/25 12:00 09/16/25 19:05 1.25 MG Acetylcysteine 100 mg Q6HR NEB 09/09/25 12:00 09/16/25 19:05 100 MG Ipratropium [place] 0.5 mg Q6HR NEB 09/09/25 12:00 09/16/25 19:05 0.5 MG Vancomycin HCl 0 ml @ 0 mls/hr PER PHARMACY IV 09/12/25 16:15 Hydralazine HCl 10 mg Q6HP PRN IV 09/12/25 20:00 09/14/25 18:14 10 MG Heparin Sodium (Porcine) 5,000 units Q12HR SC 09/12/25 22:00 09/16/25 21:37 5,000 UNITS Albumin Human 100 ml @ 100 mls/hr PRN PRN IV 09/13/25 07:00 09/15/25 11:23 100 MLS/HR Ceftriaxone Sodium 50 ml @ 100 mls/hr DAILY@09 IV 09/16/25 09:00 09/16/25 09:57 100 MLS/HR Bumetanide 2 mg DAILY IV 09/16/25 14:00 09/16/25 15:22 2 MG Laboratory Results Laboratory Tests 09/16/25 05:00 09/16/25 09:46 Chemistry Test 09/16/25 05:00 Albumin 3.5 g/dL (3.2-4.8) Calcium Level 8.8 mg/dL (8.7-10.4) Total Protein 6.7 g/dL (5.7-8.2) LFT Test 09/16/25 05:00 Alanine Aminotransferase (ALT) 20 U/L (7-40) Alkaline Phosphatase 77 U/L (46-116) Aspartate Amino Transferase (AST) 21 U/L (13-40) Total Bilirubin 0.4 mg/dL (0.2-1.0) Urinalysis Test 08/22/25 11:43 08/22/25 12:52 09/06/25 04:00 Urine WBC Clumps Present /hpf (None Seen) Urine Hyaline Casts Mod /lpf (0 - 2) Urine Mucus Few (None Seen) Urine Protein/Creatinine Ratio 4.08 Urine Total Protein 204.4 mg/dL (1-14) H Urine Creatinine 52.93 mg/dL (30.0-125.0) Urine Sodium 114 mmol/L (40-220) Urine Color Light-orange (Yellow) Urine Clarity Turbid (Clear) H Urine pH 7.5 (5.0-9.0) Urine Specific [place] 1.019 (1.001-1.035) Urine Protein 3+ (Negative) H Urine Ketones 1+ (Negative) H Urine Blood 3+ /uL (Negative) H Urine Nitrite Negative (Negative) Urine Bilirubin Negative (Negative) Urine Urobilinogen Normal mg/dL (Negative) Urine Leukocyte Esterase Negative /uL (Negative) Urine RBC 1386 /hpf (0 - 4) Urine Microscopic WBC 9 /HPF (0-5) H Urine Squamous Epithelial Cells Few /hpf (<5) Urine Bacteria None seen /hpf (None Seen) Urine Glucose 2+ mg/dL (Normal) H Microbiology Microbiology Date/Time Source Procedure Growth Status 09/15/25 16:10 Blood Blood Culture - Preliminary NO GROWTH AFTER 24 HOURS OF INCUBATION. Resulted 08/22/25 12:52 Urine - [place] Urine Culture - Final Complete 08/22/25 08:06 Nose MRSA Screen - Final Complete Assessment/Plan Assessment/Plan Impression: Acute hypoxic respiratory failure Acute hypercapnic respiratory failure Dependence on supplemental oxygen Pulmonary edema Pulmonary hypertension Metabolic acidosis Acute renal failure Morbid obesity Events: Patient remains on supplemental oxygen On 6 LPM NC Taper O2 as tolerated; improved O2 requirements Patient is awake, alert. Chest x-ray reviewed, notable for pulmonary vascular congestion. Patient failed swallow eval yesterday. Continue head of bed elevation Aspiration precautions. Hemodialysis per Nephrology Follow up Nephrology recs Continue antibiotics. Follow up cultures WBC of 13.2 K Continue bronchodilators Mucomyst Femoral Frank catheter was removed - concern as cause of elevated WBC Monitor temperatures Monitor platelets - currently 124 K Tube feeds for nutritional support Head of bed elevation Aspiration precautions Physical therapy Diurese with Bumex Maintain euvolemia Monitor renal function Monitor urine output Anxiolytic PRN Labs and imaging reviewed. Rest of plan as noted below. Plan: S/p extubation on 09/07/25 On supplemental oxygen Titrate to keep O2 sats above 90%. Continue antibiotics. Continue bronchodilators Mucomyst Tube feeds for nutritional support Pressors as necessary for hemodynamic support Titrate to keep mean arterial pressure greater than 65 mmHg. Hemodialysis per Nephrology Monitor renal function Monitor electrolytes. Supplement as necessary. Monitor ins and outs. Recommend diet and lifestyle modifications for weight reduction Obesity complicates all care GI prophylaxis. DVT prophylaxis. Prognosis: Poor given patient's multiple co-morbidities. Rest of plan per hospitalist and other consultants. Thank you, Dr. Mike Zheng, for allowing me to participate in this patient's care. Further recommendations will depend on the patient's clinical course. Please do not hesitate to contact me if you have any questions or concerns. This medical document was created using an electronic medical record system with [employer] dictation system. Although these documentations are being carefully reviewed, there may still be some phonetic and typographical changes. The errors are purely typographical, due to imperfection on the software program, and do not reflect any compromise in the patient's medical care. Plan discussed with: Patient, Other (MARU Sheriff) Visit Coding Pulmonary Billing Provider: RAVI SABA MD Date of Service if different f: Sep 16, 2025 Common Visit Codes: 70190-CTVBVIBPIT INP/OBS CARE(HIGH) RAVI SABA MD Sep 16, 2025 22:15
[2025-09-17] VITALS (40 sets, daily range): BP systolic 123–186; BP diastolic 45–77; PULSE 78–98; RESP 12–21; TEMP 97.6–99; O2SAT 86–100
[2025-09-17 06:31] LABS: Hemoglobin 9.7 g/dL (12.2-16.2)
[2025-09-17 06:33] LABS: Hematocrit 34.1 % (36.0-46.0); Mean Corpuscular Hemoglobin 18.9 pg (28.0-32.0); Mean Corpuscular Volume 66.5 fL (80.0-100.0); Nucleated Red Blood Cells % 0.1 %
[2025-09-17 06:49] LABS: Alanine Aminotransferase 18 U/L (7-40); Albumin 3.5 g/dL (3.2-4.8); Alkaline Phosphatase 74 U/L (46-116); Anion Gap 13 (5-15); BUN/Creatinine Ratio 6.9 (10.0-20.0); Calcium 8.9 mg/dL (8.7-10.4); Carbon Dioxide 28 mmol/L (20-31); Chloride 101 mmol/L (98-107); Glucose 90 mg/dL (74-106); Potassium 3.7 mmol/L (3.5-5.1); Sodium 142 mmol/L (136-145); Total Protein 6.6 g/dL (5.7-8.2)
[2025-09-17 06:52] LABS: Bilirubin, Total 0.2 mg/dL (0.2-1.0); Blood Urea Nitrogen 42 mg/dL (9-23)
[2025-09-17] MEDS: SODIUM CHL 0.9% 1000 ML BAG XX ONE (07:00)
[2025-09-17 08:04] LABS: Anisocytosis Slight; Ovalocytes FEW
--- NOTE | 2025-09-17 13:32 | DVHPN2 ---
Progress Note Date Seen: Sep 17, 2025 Has the PT tested + for MRSA If YES, has PT been informed?: No Medical Necessity Reason Pt with a Central, PICC or Fol: Yes The following are medically ne: Meng Catheter Reason for meng catheter: Strict I&O Objective vital signs Vital Sign Date Time Temp Pulse Resp B/P (MAP) Pulse Ox O2 Delivery O2 Flow Rate FiO2 09/17/25 11:59 81 16 100 09/17/25 11:50 Nasal Cannula* 5 40 09/17/25 10:00 143/53 (83) 09/17/25 08:00 99.0 99.0 Total Intake and Output 09/16/25 09/16/25 09/17/25 15:00 23:00 07:00 Intake Total 210 ml 410 ml 320 ml Output Total 150 ml 150 ml Balance 210 ml 260 ml 170 ml medications Current Medications Medications Dose Ordered Sig/Adri Route Start Time Stop Time Status Last Admin Dose Admin Multivit/Ca Carb/ B Cmplx/FA/Prenat 1 tab DAILY PO 08/21/25 10:00 09/17/25 09:03 1 TAB Diagnostic Test (Pha) 1 strip ACHS 08/21/25 07:00 09/17/25 11:51 1 STRIP Insulin Human Regular ACHS SC 08/21/25 07:00 09/16/25 17:58 2 UNITS Dextrose 50 ml UD PRN IV 08/20/25 23:15 Sodium Chloride 10 ml Q8HR IV 08/21/25 06:00 09/17/25 05:54 10 ML Docusate Sodium 100 mg BIDPRN PRN PO 08/20/25 23:15 Acetaminophen 650 mg Q6HP PRN PO 08/20/25 23:15 09/10/25 13:23 650 MG Nitroglycerin 0.4 mg Q5MINP PRN SL 08/20/25 23:15 Hold Pantoprazole Sodium 40 mg DAILY IV 08/22/25 10:00 09/17/25 09:04 40 MG Sildenafil Citrate 20 mg TID@08,14,20 NG 08/30/25 20:00 09/17/25 08:20 20 MG Amlodipine Besylate 10 mg DAILY PO 09/01/25 10:45 09/17/25 08:57 10 MG Enteral Nutritional Formula 1,000 ml 30ML/HR GT 09/02/25 18:45 09/16/25 06:25 1,000 ML Amino Acid Protein 30 ml Q6HR GT 09/03/25 00:00 09/17/25 12:08 30 ML Hydralazine HCl 50 mg Q8HR PO 09/05/25 22:00 09/17/25 05:44 50 MG Levalbuterol HCl 1.25 mg Q6HR NEB 09/09/25 12:00 09/17/25 11:50 1.25 MG Acetylcysteine 100 mg Q6HR NEB 09/09/25 12:00 09/17/25 11:50 100 MG Ipratropium [place] 0.5 mg Q6HR NEB 09/09/25 12:00 09/17/25 11:50 0.5 MG Vancomycin HCl 0 ml @ 0 mls/hr PER PHARMACY IV 09/12/25 16:15 Hydralazine HCl 10 mg Q6HP PRN IV 09/12/25 20:00 09/14/25 18:14 10 MG Heparin Sodium (Porcine) 5,000 units Q12HR SC 09/12/25 22:00 09/17/25 09:06 5,000 UNITS Albumin Human 100 ml @ 100 mls/hr PRN PRN IV 09/13/25 07:00 09/15/25 11:23 100 MLS/HR Ceftriaxone Sodium 50 ml @ 100 mls/hr DAILY@09 IV 09/16/25 09:00 09/17/25 08:21 100 MLS/HR Bumetanide 2 mg DAILY IV 09/16/25 14:00 09/17/25 09:03 2 MG Examination: GENERAL:Normal, CVS:Normal laboratory and microbiology Laboratory Tests 09/17/25 05:49 Test 09/17/25 05:49 Range/Units Serum Glucose 90 74-106 mg/dL Microbiology Date/Time Source Procedure Growth Status 09/15/25 16:10 Blood Blood Culture - Preliminary Resulted 08/22/25 12:52 Urine - [place] Urine Culture - Final Complete 08/22/25 08:06 Nose MRSA Screen - Final Complete Problem List/Assessment/Plan Problem List/Assessment/Plan Acute kidney injury superimposed Chronic Kidney Disease stage III B secondary hemodynamic mediated, ATN on dialysis Acute hypoxic respiratory failure, patient intubated on ventilator extubated Community-acquired pneumonia , influenza Diabetes mellitus type 2 Nephrotic syndrome secondary to underlying diabetic nephropathy hypertension BCX NGTD HD today WBC improving pending TC placement after neg BCX tube feeding via NGT monitor fluid balances Strict I&Os kidney ultrasound reported within normal limit IV antibiotics Avoid nephrotoxic medications will need chairtime after TC is placed Plan discussed with: Patient My Orders My Orders Orders - KELLY DIAZ MD Procedure Category Date Status Time Bumetanide Injection PHA 09/16/25 In Process (Bumex Injection) 14:00 Hemodialysis Orders ORDERS 09/17/25 Transmitted 07:00 Document Fluid Input CHASTITY 09/17/25 In Process And Outpu 07:00 Dietary Evaluation Review Comments: Nutrition Recommendation: 1) EN Nepro Carbsteady @ 30ml/hr x 24hr (goal) along with Pro-stat 1 pk BID. Water flush 50ml Q6H if allowed, adjust PRN. TF at goal volume along with propofol & Pro-stat provide 1777 kcal (100%), 89 gm protein (83%), and 723 ml free water(including flush). 2) TPN if NPO >7 days 3) Monitor NPO status, lab values, weight trend, and I/O Expected Outcomes/Goals: Intake to meet >75% estimated needs Lab values to improve FU 2-3 days KELLY DIAZ MD Sep 17, 2025 13:32
--- NOTE | 2025-09-17 15:40 | DVHPNRES ---
Progress Note Date Seen: Sep 17, 2025 Resident Creating Document: KATIE MCKINNEY RESIDENT Has the PT tested + for MRSA If YES, has PT been informed?: No Medical Necessity Reason Pt with a Central, PICC or Fol: Yes The following are medically ne: Meng Catheter Reason for meng catheter: Strict I&O Subjective Review of Systems Ms. Marin is a 75-year-old female with prior medical history of HFpEF, COPD with home oxygen, gout, anxiety, type 2 diabetes mellitus, hyperlipidemia, hypertension, and PAD, who bas brought to the [facility] by EMS with chief complaint of shortness of breath and back and midsternal non-radiating chest pain. Daughter reported progressively worsening shortness of breath for the last 2 weeks associated with general malaise and orthopnea, describing very wet coughing sounds when her mother lays flat. She states that her mother began complaining of worsening shortness of breath associated with non-radiating midsternal chest pain which prompted her to call EMS. Per record, on seen she was saturating 74%, she was placed on CPAP with inspiration increasing to 88% on route to the emergency department. On evaluation in the ED, patient was afebrile, slightly hypertensive, and tachypneic, saturating 81% which she was placed on BiPAP. Initial labs significant for leukocytosis of 11.3, with elevated hematocrit, and thrombocytopenia, hyperkalemia, creatinine 4.09, BUN 46, and ABG significant for respiratory acidosis, troponins are negative, BNP 2515.41. Serology was positive for influenza A and B. Chest x-ray showed moderate to severe pulmonary edema. Patient further deteriorated requiring intubation for respiratory distress. She was started on IV Lasix, IV methylprednisolone, hyperkalemia protocol, bicarbonate drip, and nitroglycerin drip. Prior Medical history: CHF, COPD, gout, anxiety, type 2 diabetes mellitus, hyperlipidemia, hypertension, PAD, pulmonary hypertension Previous surgical history: Left leg stenting for PAD Allergies: Denies Social history: Daughter reports the patient smokes cigarettes with cessation approximately 20 years ago Home medications: Allopurinol, insulin, gabapentin, simvastatin, tadalafil 09/17/2025: Significant improvement in mental status, noted to be AO x4 today, bedside swallow evaluation past by the patient, started patient on a mechanically soft renal specific diet. Blood cultures today grew Gram-positive cocci, continues on vancomycin and ceftriaxone. Scheduled to undergo hemodialysis today. A transiently went up to Oxymizer 9 L, however, now back to 6-7 L via Oxymizer. Ordered swallow evaluation by speech therapist, continuing with PT. Objective vital signs Vital Sign Date Time Temp Pulse Resp B/P (MAP) Pulse Ox O2 Delivery O2 Flow Rate FiO2 09/17/25 14:01 83 15 134/55 (81) 100 09/17/25 12:01 98.0 98.0 09/17/25 12:00 Oxymizer 6 N/A Total Intake and Output 09/16/25 09/16/25 09/17/25 15:00 23:00 07:00 Intake Total 210 ml 410 ml 320 ml Output Total 150 ml 150 ml Balance 210 ml 260 ml 170 ml medications Current Medications Medications Dose Ordered Sig/Adri Route Start Time Stop Time Status Last Admin Dose Admin Multivit/Ca Carb/ B Cmplx/FA/Prenat 1 tab DAILY PO 08/21/25 10:00 09/17/25 09:03 1 TAB Diagnostic Test (Pha) 1 strip ACHS 08/21/25 07:00 09/17/25 11:51 1 STRIP Insulin Human Regular ACHS SC 08/21/25 07:00 09/16/25 17:58 2 UNITS Dextrose 50 ml UD PRN IV 08/20/25 23:15 Sodium Chloride 10 ml Q8HR IV 08/21/25 06:00 09/17/25 13:31 10 ML Docusate Sodium 100 mg BIDPRN PRN PO 08/20/25 23:15 Acetaminophen 650 mg Q6HP PRN PO 08/20/25 23:15 09/10/25 13:23 650 MG Nitroglycerin 0.4 mg Q5MINP PRN SL 08/20/25 23:15 Hold Pantoprazole Sodium 40 mg DAILY IV 08/22/25 10:00 09/17/25 09:04 40 MG Sildenafil Citrate 20 mg TID@08,14,20 NG 08/30/25 20:00 09/17/25 08:20 20 MG Amlodipine Besylate 10 mg DAILY PO 09/01/25 10:45 09/17/25 08:57 10 MG Amino Acid Protein 30 ml Q6HR GT 09/03/25 00:00 09/17/25 12:08 30 ML Hydralazine HCl 50 mg Q8HR PO 09/05/25 22:00 09/17/25 05:44 50 MG Levalbuterol HCl 1.25 mg Q6HR NEB 09/09/25 12:00 09/17/25 11:50 1.25 MG Acetylcysteine 100 mg Q6HR NEB 09/09/25 12:00 09/17/25 11:50 100 MG Ipratropium [place] 0.5 mg Q6HR NEB 09/09/25 12:00 09/17/25 11:50 0.5 MG Vancomycin HCl 0 ml @ 0 mls/hr PER PHARMACY IV 09/12/25 16:15 Hydralazine HCl 10 mg Q6HP PRN IV 09/12/25 20:00 09/14/25 18:14 10 MG Heparin Sodium (Porcine) 5,000 units Q12HR SC 09/12/25 22:00 09/17/25 09:06 5,000 UNITS Albumin Human 100 ml @ 100 mls/hr PRN PRN IV 09/13/25 07:00 09/15/25 11:23 100 MLS/HR Ceftriaxone Sodium 50 ml @ 100 mls/hr DAILY@09 IV 09/16/25 09:00 09/17/25 08:21 100 MLS/HR Bumetanide 2 mg DAILY IV 09/16/25 14:00 09/17/25 09:03 2 MG Examination General: Patient appeared calm and somewhat cooperative today, although patient is unable to follow commands. Patient is A&O x3 HEENT: Dry mucous membranes. Nystagmus POA Respiratory/pulmonary: Normal breath sounds heard Cardiovascular: Tachycardia. Normal heart sounds S1 and S2 with no associated murmurs. Abdomen: Abdomen nondistended, normal bowel sounds. Extremities: Dry, crusted planter surface of bilateral feet. SCDs present bilaterally. laboratory and microbiology Laboratory Tests 09/17/25 05:49 Test 09/17/25 05:49 Range/Units Serum Glucose 90 74-106 mg/dL Microbiology Date/Time Source Procedure Growth Status 09/15/25 16:10 Blood Blood Culture - Preliminary Resulted 08/22/25 12:52 Urine - Meng Port Urine Culture - Final Complete 08/22/25 08:06 Nose MRSA Screen - Final Complete Labs and/or images reviewed: Labs reviewed by me, Image(s) reviewed by me Problem List/Assessment/Plan Problem List/Assessment/Plan Neurology Sedation/analgesia Versed Discontinued Propofol: Discontinued Fentanyl discontinued # Metabolic encephalopathy due to Uremia/ Sepsis with anxiety/agitation/ delirium POA Creatinine continues to trend up. IR deferred tunneled catheter placement for now. Temporary hemodialysis catheter inserted Ordered ABG in context of no improvement in confusion. ABG resulted WNL Ordered noncontrast CT head. Underwent hemodialysis today PT on board Cardiovascular # Acute on chronic HFpEF (improving) # Pulmonary Edema BNP normalized; OA Chest xray 08/20/2025: Moderate to severe pulmonary edema Chest xray 08/21/2025: Cardiomegaly with pulmonary venous congestion and edema Echocardiogram 01/14/2022: EF > 60%, Limited echo windows, mild TR, MR Echocardiogram 10/22/2024: Technically good study sinus rhythm. Concentric LVH with left atrial enlargement. Mild aortic sclerosis. Mild thickening of the anterior and posterior mitral leaflets. Valves appear to be structurally normal. Left ventricular function is preserved at 60% with normal RV function. Cardiology: Pending echo, considered R/LHC if inconclusive , discontinue bumex drip Per nephrology: Trial of bumex + albumin and D5W 75 cc/hour. Bumex drip discontinued by cardiology. D5W has been discontinued due to resolution of hypernatremia Lasix discontinued Repeat CXR from 09/13/2025 shows pulmonary vascular congestion reduced in comparison to previous X-rays Chest x-ray from 09/15/2025 shows stable pulmonary vascular congestion and small pleural effusions #Hypertension Continue Amlodipine 10 mg NG daily, Hydralazine 50 mg q8 #CAD Coronary angiogram done on 08/30/2025: Left main, LAD and circumflex are patent, RCA patent, EF is 50-55% #Severe pulmonary hypertension R/L heart catheterization 08/30/2025: RA pressure 18 mmHg, RV pressure 62/16 mmHg, pulmonary artery pressure 66/18 mmHg, capillary wedge pressure: 17 mmHg Per cardiology: Sildenafil 20mg NG TID, testing testing 40 but this was lowered Respiratory Ventilator Intubated (08/21/2025) Extubated (09/07/2025) # Acute hypercapnic respiratory failure secondary to pulmonary edema s/p Extubation # Acute hypoxic respiratory failure # Respiratory acidosis (resolving) Discontinued oxygen supplementation with Oxymizer Med neb treatment with Ipratropium, levalbuterol Mucomyst 100 mg q 8 hours PT evaluation requested Continue oxygen supplementation, currently on 6 L oxygen. Continue tapering as tolerated. # Acute COPD exacerbation Methylprednisolone 40 mg IV, discontinued Medneb treatment with Ipratropium medneb, Albuterol medneb Ceftriaxone 1 g IV daily (discontinued) # Community acquired pneumonia due to Gram-positive/Gram-negative pneumonia/ Influenza A and B POA Tamiflu 30 mg BID suspension, discontinued Discontinued Zosyn, continue vancomycin. Start IV Ceftriaxone Gastrointestinal NG tube reinserted (09/13/2025); failed swallow evaluation # Peptic ulcer prophylaxis Pantoprazole 40 mg IV daily # Constipation Lactulose 15 mL Genitourinary Replace Meng catheter (09/12/25) # Possible Complicated UTI, resolving UA positive for UTI Ceftriaxone 1 g IV daily, discontinued Previously switched cefepime to vancomycin and Zosyn Discontinue vancomycin and context of eosinophilia. Started on Rocephin Nephrology # COLE on CKD likely hemodynamically mediated/ VMN Supportive management with IV fluids given Nephrology on board, recommended hemodialysis Patient initially had dialysis catheter in the right femoral region, removed. Interventional radiology on board, tunneled catheter placement deferred till confirmation with negative blood cultures. Kidney ultrasound shows no acute abnormality Nephrology on board, recommended hemodialysis, richy Marie in the interim. Continue tube feeding, monitor fluid balances, strict I&Os Hemodialysis today # Hyperkalemia, resolved Per nephrology: trial of forced diuresis to enhance potassium excretion, serial chemistry panels, IV bicarbonate infusion, and avoidance of IV contrast if able. # Acute metabolic acidosis # Nephrotic syndrome secondary to underlying diabetic nephropathy, possible # Hypernatremia, resolved D5W, discontinued Infectious disease # Sepsis POA d/t below # Influenza A and B Pneumonia POA Serology positive for Influenza A & B Tamiflu 30 mg BID suspension, discontinued # Possible Complicated UTI, present on admission Ceftriaxone 1 g IV daily, discontinued Discontinued cefepime; continue vancomycin. Discontinued Zosyn. Started patient on IV Rocephin. Hem/oncology # Thrombocytopenia, resolved # Microcytic, hypochromic anemia # Heparin induced thrombocytopenia type 1, possible Intermediate possibility of HIT on 4Ts score Platelet count trending down, consider discontinuing heparin if platelet count continues to trend down; absolute contraindication<50 K. Can also consider discontinuing vancomycin Monitor CBC # Eosinophilia Switched Zosyn to IV Rocephin. Eosinophil counts went down today, can consider discontinuing vancomycin tomorrow if the eosinophil count remains high. Monitor CBC Endocrine # Type 2 diabetes mellitus Mild Sliding scale Monitor blood glucose # Class 1 Obesity BMI 30 DVT prophylaxis: Heparin 5000 U BID PUD prophylaxis: Pantoprazole 40 mg IV daily Lines: - L femoral Central line 08/20/2025 - discontinued on 08/29/2025 - L internal jugular central line 08/29/2025 09/08/2025 - Meng catheter 08/20/2025 - ET tube: 08/21/2025 (extubated 09/07/2025) - Femoral Frank catheter: 08/30/2025- 09/10/2025 - Mid line: 09/08/2025 - Frank catheter 09/12/25 Nutrition: Nepro Critical care time 73 minutes excluding procedure. Goals of care discussed with nurses, Daughter, Susy on bedside. Plan discussed with Dr. Martell Plan discussed with: Patient, Daughter, Other (RN) My Orders My Orders Orders - KATIE MCKINNEY RESIDENT Procedure Category Date Status Time Blood Culture MARIMAR 09/17/25 In Process 08:53 Mechanical Soft Diet DIET 09/17/25 Transmitted Lunch * Swallow Request ST 09/17/25 Transmitted 15:37 Dietary Evaluation Review Comments: Nutrition Recommendation: 1) EN Nepro Carbsteady @ 30ml/hr x 24hr (goal) along with Pro-stat 1 pk BID. Water flush 50ml Q6H if allowed, adjust PRN. TF at goal volume along with propofol & Pro-stat provide 1777 kcal (100%), 89 gm protein (83%), and 723 ml free water(including flush). 2) TPN if NPO >7 days 3) Monitor NPO status, lab values, weight trend, and I/O Expected Outcomes/Goals: Intake to meet >75% estimated needs Lab values to improve FU 2-3 days Visit Coding STANDARD RES Billing Provider: RAVI MARTELL MD Date of Service if different f: Sep 17, 2025 Common Visit Codes: 09127-[id number] CARE 30-74 MIN, [id number] CARE-EACH +30MIN KATIE MCKINNEY Sep 17, 2025 15:40
[2025-09-17] MEDS: VANCOMYCIN 500mg/100mL 100 ML IV ONE (20:57)
--- NOTE | 2025-09-17 23:53 | DVHPN2 ---
Subjective DOS: 09/17/2025 Patient seen and examined at bedside. On supplemental oxygen Overnight events reviewed. Changes from previous H/P or p: No Changes Eyes: No Pain, No Vision change, No Conjunctivae inflammation, No Eyelid inflammation, No Other, No Redness ENT: No Ear pain, No Ear discharge, No Nose pain, No Nose discharge, No Nose congestion, No Mouth pain, No Mouth swelling, No Throat pain, No Throat swelling, No Other Cardiovascular: Chest Pain; No Palpitations, No Orthopnea, No Paroxysmal Noc. Dyspnea, No Edema, No Lt Headedness, No Other Respiratory: No Cough, No Dry; Shortness of breath; No SOB with excertion, No Wheezing, No Hemoptysis, No Pleuritic Pain, No Sputum; Other (SOB at rest) Gastrointestinal: No Nausea, No Vomiting, No Abdominal Pain, No Diarrhea, No Constipation, No Melena, No Hematochezia, No Other Genitourinary: No Dysuria, No Frequency, No Incontinence, No Hematuria, No Retention; Other (Schuster catheter in place) Musculoskeletal: other (Bilateral leg discoloration); No neck pain, No shoulder pain, No arm pain, No back pain, No hand pain, No leg pain, No foot pain Skin: No Rash, No Lesions, No Jaundice, No Bruising; Other (Left foot wound) Objective Vitals Vital Signs Date Time Temp Pulse Resp B/P (MAP) Pulse Ox O2 Delivery O2 Flow Rate FiO2 09/17/25 22:15 152/66 09/17/25 21:14 87 18 98 4.0 40 09/17/25 20:00 Nasal Cannula* 09/17/25 16:01 97.6 97.6 Intake/Output Intake and Output 09/17/25 07:00 Intake Total 940 ml Output Total 300 ml Balance 640 ml Intake Oral 370 ml IV Total 50 ml Tube Feeding 520 ml Output Urine Total 300 ml # Bowel Movements 1 Exam Gen.: Patient lying in bed in no apparent distress. On supplemental oxygen. Head: Normocephalic, atraumatic. Eyes: EOMI/PERRLA. Ears: Normal hearing. Normal anatomy. Neck/trachea: Trachea midline, supple. Nose: Normal external anatomy. Mouth: Moist mucous membranes. Chest: Decreased air entry bilaterally. No wheezing or rhonchi. Cardiovascular: Positive S1, positive S2. Regular rate and rhythm. Abdomen: Positive bowel sounds in all 4 quadrants. Soft, non-tender, non- distended. : Deferred. Rectal: Deferred. Skin: Warm, dry. Intact. Extremities: 2+ radial pulses bilaterally. No lower extremity edema. Neuro: Awake, alert, oriented x3. No gross motor or sensory deficits. Cranial nerves II through XII intact. Gait not assessed. Medications Current Medications Medications Dose Ordered Sig/Adri Route Start Time Stop Time Status Last Admin Dose Admin Multivit/Ca Carb/ B Cmplx/FA/Prenat 1 tab DAILY PO 08/21/25 10:00 09/17/25 09:03 1 TAB Diagnostic Test (Pha) 1 strip ACHS 08/21/25 07:00 09/17/25 22:16 1 STRIP Insulin Human Regular ACHS SC 08/21/25 07:00 09/16/25 17:58 2 UNITS Dextrose 50 ml UD PRN IV 08/20/25 23:15 Sodium Chloride 10 ml Q8HR IV 08/21/25 06:00 09/17/25 22:15 10 ML Docusate Sodium 100 mg BIDPRN PRN PO 08/20/25 23:15 Acetaminophen 650 mg Q6HP PRN PO 08/20/25 23:15 09/17/25 23:20 650 MG Nitroglycerin 0.4 mg Q5MINP PRN SL 08/20/25 23:15 Hold Pantoprazole Sodium 40 mg DAILY IV 08/22/25 10:00 09/17/25 09:04 40 MG Sildenafil Citrate 20 mg TID@08,14,20 NG 08/30/25 20:00 09/17/25 22:15 20 MG Amlodipine Besylate 10 mg DAILY PO 09/01/25 10:45 09/17/25 08:57 10 MG Amino Acid Protein 30 ml Q6HR GT 09/03/25 00:00 09/17/25 17:38 30 ML Hydralazine HCl 50 mg Q8HR PO 09/05/25 22:00 09/17/25 22:15 50 MG Levalbuterol HCl 1.25 mg Q6HR NEB 09/09/25 12:00 09/17/25 19:06 1.25 MG Acetylcysteine 100 mg Q6HR NEB 09/09/25 12:00 09/17/25 19:07 100 MG Ipratropium [place] 0.5 mg Q6HR NEB 09/09/25 12:00 09/17/25 19:06 0.5 MG Vancomycin HCl 0 ml @ 0 mls/hr PER PHARMACY IV 09/12/25 16:15 Hydralazine HCl 10 mg Q6HP PRN IV 09/12/25 20:00 09/14/25 18:14 10 MG Heparin Sodium (Porcine) 5,000 units Q12HR SC 09/12/25 22:00 09/17/25 22:16 5,000 UNITS Albumin Human 100 ml @ 100 mls/hr PRN PRN IV 09/13/25 07:00 09/15/25 11:23 100 MLS/HR Ceftriaxone Sodium 50 ml @ 100 mls/hr DAILY@09 IV 09/16/25 09:00 09/17/25 08:21 100 MLS/HR Bumetanide 2 mg DAILY IV 09/16/25 14:00 09/17/25 09:03 2 MG Laboratory Results Laboratory Tests 09/17/25 05:49 Chemistry Test 09/17/25 05:49 Albumin 3.5 g/dL (3.2-4.8) Calcium Level 8.9 mg/dL (8.7-10.4) Total Protein 6.6 g/dL (5.7-8.2) LFT Test 09/17/25 05:49 Alanine Aminotransferase (ALT) 18 U/L (7-40) Alkaline Phosphatase 74 U/L (46-116) Aspartate Amino Transferase (AST) 22 U/L (13-40) Total Bilirubin 0.2 mg/dL (0.2-1.0) Urinalysis Test 08/22/25 11:43 08/22/25 12:52 09/06/25 04:00 Urine WBC Clumps Present /hpf (None Seen) Urine Hyaline Casts Mod /lpf (0 - 2) Urine Mucus Few (None Seen) Urine Protein/Creatinine Ratio 4.08 Urine Total Protein 204.4 mg/dL (1-14) H Urine Creatinine 52.93 mg/dL (30.0-125.0) Urine Sodium 114 mmol/L (40-220) Urine Color Light-orange (Yellow) Urine Clarity Turbid (Clear) H Urine pH 7.5 (5.0-9.0) Urine Specific [place] 1.019 (1.001-1.035) Urine Protein 3+ (Negative) H Urine Ketones 1+ (Negative) H Urine Blood 3+ /uL (Negative) H Urine Nitrite Negative (Negative) Urine Bilirubin Negative (Negative) Urine Urobilinogen Normal mg/dL (Negative) Urine Leukocyte Esterase Negative /uL (Negative) Urine RBC 1386 /hpf (0 - 4) Urine Microscopic WBC 9 /HPF (0-5) H Urine Squamous Epithelial Cells Few /hpf (<5) Urine Bacteria None seen /hpf (None Seen) Urine Glucose 2+ mg/dL (Normal) H Microbiology Microbiology Date/Time Source Procedure Growth Status 09/15/25 16:10 Blood Blood Culture - Preliminary Resulted 08/22/25 12:52 Urine - Schuster Port Urine Culture - Final Complete 08/22/25 08:06 Nose MRSA Screen - Final Complete Assessment/Plan Assessment/Plan Impression: Acute hypoxic respiratory failure Acute hypercapnic respiratory failure Dependence on supplemental oxygen Pulmonary edema Pulmonary hypertension Metabolic acidosis Acute renal failure Morbid obesity Events: Patient remains on supplemental oxygen On 7 LPM NC Taper O2 as tolerated; improved O2 requirements Significant improvement in mental status, noted to be AO x4 today Bedside swallow evaluation passed. HD per Nephrology - Scheduled to undergo hemodialysis today. Follow up Nephrology recs Chest x-ray reviewed, notable for pulmonary vascular congestion. Continue antibiotics, vancomycin and ceftriaxone. Blood cultures grew Gram-positive cocci WBC of 14.4 K Continue bronchodilators Mucomyst Femoral Frank catheter was removed - concern as cause of elevated WBC Monitor temperatures Monitor platelets; currently 124 -->159 K Continue physical therapy Diurese with Bumex Maintain euvolemia Monitor renal function Monitor electrolytes, supplement as necessary K of 3.7 Monitor urine output Anxiolytic PRN Labs and imaging reviewed. Rest of plan as noted below. Plan: S/p extubation on 09/07/25 On supplemental oxygen Titrate to keep O2 sats above 90%. Continue antibiotics. Continue bronchodilators Mucomyst Pressors as necessary for hemodynamic support Titrate to keep mean arterial pressure greater than 65 mmHg. Hemodialysis per Nephrology Monitor renal function Monitor electrolytes. Supplement as necessary. Monitor ins and outs. Recommend diet and lifestyle modifications for weight reduction Obesity complicates all care GI prophylaxis. DVT prophylaxis. Prognosis: Poor given patient's multiple co-morbidities. Rest of plan per hospitalist and other consultants. Thank you, Dr. Mike Zheng, for allowing me to participate in this patient's care. Further recommendations will depend on the patient's clinical course. Please do not hesitate to contact me if you have any questions or concerns. This medical document was created using an electronic medical record system with [employer] dictation system. Although these documentations are being carefully reviewed, there may still be some phonetic and typographical changes. The errors are purely typographical, due to imperfection on the software program, and do not reflect any compromise in the patient's medical care. Plan discussed with: Patient, Other (RN Michaelle) Visit Coding Pulmonary Billing Provider: RAVI SABA MD Date of Service if different f: Sep 17, 2025 Common Visit Codes: [id number] INP/OBS CARE(HIGH) RAVI SABA MD Sep 17, 2025 23:53
[2025-09-18] VITALS (34 sets, daily range): BP systolic 105–160; BP diastolic 40–76; PULSE 83–101; RESP 14–28; TEMP 98.3–99.3; O2SAT 89–100
[2025-09-18] MEDS ORDERED: ONDANSETRON HCL 4 MG/2 ML VIAL IV PRN (05:15)
[2025-09-18 05:59] LABS: Nucleated Red Blood Cells % 0.0 %
[2025-09-18 06:02] LABS: Hematocrit 36.1 % (36.0-46.0); Hemoglobin 10.5 g/dL (12.2-16.2); Mean Corpuscular Hemoglobin 19.1 pg (28.0-32.0); Mean Corpuscular Volume 65.7 fL (80.0-100.0)
[2025-09-18 06:09] LABS: Anion Gap 10 (5-15); Carbon Dioxide 29 mmol/L (20-31); Sodium 137 mmol/L (136-145)
[2025-09-18 06:10] LABS: Calcium 9.1 mg/dL (8.7-10.4)
[2025-09-18 06:11] LABS: Chloride 98 mmol/L (98-107); Potassium 3.4 mmol/L (3.5-5.1)
[2025-09-18 06:16] LABS: BUN/Creatinine Ratio 6.4 (10.0-20.0); Glucose 88 mg/dL (74-106)
[2025-09-18 06:17] LABS: Blood Urea Nitrogen 33 mg/dL (9-23)
[2025-09-18] MEDS: ONDANSETRON HCL 4 MG/2 ML VIAL ONE (06:33)
[2025-09-18] MEDS: POTASSIUM CHL 10 Meq TABLET PO ONE (09:21)
--- NOTE | 2025-09-18 13:08 | DVHPNRES ---
Progress Note Date Seen: Sep 18, 2025 Resident Creating Document: URIAH NOBLE RESIDENT Has the PT tested + for MRSA If YES, has PT been informed?: No Medical Necessity Reason Pt with a Central, PICC or Fol: Yes The following are medically ne: Meng Catheter Reason for meng catheter: Strict I&O Subjective Review of Systems Ms. Marin is a 75-year-old female with prior medical history of HFpEF, COPD with home oxygen, gout, anxiety, type 2 diabetes mellitus, hyperlipidemia, hypertension, and PAD, who bas brought to the [facility] by EMS with chief complaint of shortness of breath and back and midsternal non-radiating chest pain. Daughter reported progressively worsening shortness of breath for the last 2 weeks associated with general malaise and orthopnea, describing very wet coughing sounds when her mother lays flat. She states that her mother began complaining of worsening shortness of breath associated with non-radiating midsternal chest pain which prompted her to call EMS. Per record, on seen she was saturating 74%, she was placed on CPAP with inspiration increasing to 88% on route to the emergency department. On evaluation in the ED, patient was afebrile, slightly hypertensive, and tachypneic, saturating 81% which she was placed on BiPAP. Initial labs significant for leukocytosis of 11.3, with elevated hematocrit, and thrombocytopenia, hyperkalemia, creatinine 4.09, BUN 46, and ABG significant for respiratory acidosis, troponins are negative, BNP 2515.41. Serology was positive for influenza A and B. Chest x-ray showed moderate to severe pulmonary edema. Patient further deteriorated requiring intubation for respiratory distress. She was started on IV Lasix, IV methylprednisolone, hyperkalemia protocol, bicarbonate drip, and nitroglycerin drip. Prior Medical history: CHF, COPD, gout, anxiety, type 2 diabetes mellitus, hyperlipidemia, hypertension, PAD, pulmonary hypertension Previous surgical history: Left leg stenting for PAD Allergies: Denies Social history: Daughter reports the patient smokes cigarettes with cessation approximately 20 years ago Home medications: Allopurinol, insulin, gabapentin, simvastatin, tadalafil 09/18/2025: Patient was seen at bedside. Yesterday, patient passed a swallow eval. Underwent hemodialysis yesterday. Today, she was confused, A&O x1. Currently on 4 L oxygen. Blood cultures from 09/15/2025 show Gram-positive cocci in clusters, growth of coagulase negative Staphylococcus, pending identification and susceptibility. Repeat blood cultures ordered on 09/17/25. Labs show elevated WBC count. Patient had hypokalemia, supplemented. Objective vital signs Vital Sign Date Time Temp Pulse Resp B/P (MAP) Pulse Ox O2 Delivery O2 Flow Rate FiO2 09/18/25 12:36 90 18 100 09/18/25 12:26 Nasal Cannula* 4 36 09/18/25 12:01 98.3 136/61 (86) 98.3 Total Intake and Output 09/17/25 09/17/25 09/18/25 15:00 23:00 07:00 Intake Total 50 ml 240 ml 100 ml Output Total 200 ml 400 ml Balance 50 ml 40 ml -300 ml medications Current Medications Medications Dose Ordered Sig/Adri Route Start Time Stop Time Status Last Admin Dose Admin Multivit/Ca Carb/ B Cmplx/FA/Prenat 1 tab DAILY PO 08/21/25 10:00 09/18/25 09:08 1 TAB Diagnostic Test (Pha) 1 strip ACHS 08/21/25 07:00 09/18/25 11:27 1 STRIP Insulin Human Regular ACHS SC 08/21/25 07:00 09/16/25 17:58 2 UNITS Dextrose 50 ml UD PRN IV 08/20/25 23:15 Sodium Chloride 10 ml Q8HR IV 08/21/25 06:00 09/18/25 06:34 10 ML Docusate Sodium 100 mg BIDPRN PRN PO 08/20/25 23:15 Acetaminophen 650 mg Q6HP PRN PO 08/20/25 23:15 09/17/25 23:20 650 MG Nitroglycerin 0.4 mg Q5MINP PRN SL 08/20/25 23:15 Hold Pantoprazole Sodium 40 mg DAILY IV 08/22/25 10:00 09/18/25 09:08 40 MG Sildenafil Citrate 20 mg TID@08,14,20 NG 08/30/25 20:00 09/18/25 09:06 20 MG Amlodipine Besylate 10 mg DAILY PO 09/01/25 10:45 09/18/25 09:07 10 MG Amino Acid Protein 30 ml Q6HR GT 09/03/25 00:00 09/18/25 01:15 30 ML Hydralazine HCl 50 mg Q8HR PO 09/05/25 22:00 09/18/25 06:35 50 MG Levalbuterol HCl 1.25 mg Q6HR NEB 09/09/25 12:00 09/18/25 12:26 1.25 MG Acetylcysteine 100 mg Q6HR NEB 09/09/25 12:00 09/18/25 12:26 100 MG Ipratropium Vest 0.5 mg Q6HR NEB 09/09/25 12:00 09/18/25 12:26 0.5 MG Vancomycin HCl 0 ml @ 0 mls/hr PER PHARMACY IV 09/12/25 16:15 Hydralazine HCl 10 mg Q6HP PRN IV 09/12/25 20:00 09/14/25 18:14 10 MG Heparin Sodium (Porcine) 5,000 units Q12HR SC 09/12/25 22:00 09/17/25 22:16 5,000 UNITS Albumin Human 100 ml @ 100 mls/hr PRN PRN IV 09/13/25 07:00 09/15/25 11:23 100 MLS/HR Ceftriaxone Sodium 50 ml @ 100 mls/hr DAILY@09 IV 09/16/25 09:00 09/18/25 09:06 100 MLS/HR Bumetanide 2 mg DAILY IV 09/16/25 14:00 09/18/25 09:07 2 MG Ondansetron HCl 4 mg Q4HPRN PRN IV 09/18/25 05:45 Examination General: Patient appeared sleepy, unable to follow commands. Patient is A&O x1 HEENT: Dry mucous membranes. Nystagmus POA Respiratory/pulmonary: Normal breath sounds heard Cardiovascular: Tachycardia. Normal heart sounds S1 and S2 with no associated murmurs. Abdomen: Abdomen nondistended, normal bowel sounds. Extremities: Dry, crusted planter surface of bilateral feet. SCDs present bilaterally. Sacrum: Healing sacral flap (POA) from previous sacral ulcer (POA) laboratory and microbiology Laboratory Tests 09/18/25 05:11 Test 09/18/25 05:11 Range/Units Serum Glucose 88 74-106 mg/dL Microbiology Date/Time Source Procedure Growth Status 09/17/25 09:41 Blood Blood Culture - Preliminary NO GROWTH AFTER 24 HOURS OF INCUBATION. Resulted 08/22/25 12:52 Urine - [place] Urine Culture - Final Complete 08/22/25 08:06 Nose MRSA Screen - Final Complete Problem List/Assessment/Plan Problem List/Assessment/Plan Neurology Sedation/analgesia Versed Discontinued Propofol: Discontinued Fentanyl discontinued # Metabolic encephalopathy due to Uremia/ Sepsis with anxiety/agitation/ delirium POA Creatinine continues to trend up. IR deferred tunneled catheter placement for now. Temporary hemodialysis catheter inserted Ordered ABG in context of no improvement in confusion. ABG resulted WNL Ordered noncontrast CT head. Underwent hemodialysis today PT on board Cardiovascular # Acute on chronic HFpEF (improving) # Pulmonary Edema BNP normalized; OA Chest xray 08/20/2025: Moderate to severe pulmonary edema Chest xray 08/21/2025: Cardiomegaly with pulmonary venous congestion and edema Echocardiogram 01/14/2022: EF > 60%, Limited echo windows, mild TR, MR Echocardiogram 10/22/2024: Technically good study sinus rhythm. Concentric LVH with left atrial enlargement. Mild aortic sclerosis. Mild thickening of the anterior and posterior mitral leaflets. Valves appear to be structurally normal. Left ventricular function is preserved at 60% with normal RV function. Cardiology: Pending echo, considered R/LHC if inconclusive , discontinue bumex drip Per nephrology: Trial of bumex + albumin and D5W 75 cc/hour. Bumex drip discontinued by cardiology. D5W has been discontinued due to resolution of hypernatremia Lasix discontinued Repeat CXR from 09/13/2025 shows pulmonary vascular congestion reduced in comparison to previous X-rays Chest x-ray from 09/15/2025 shows stable pulmonary vascular congestion and small pleural effusions Continue Bumex 2 mg daily per Nephrology (see below) #Hypertension Continue Amlodipine 10 mg NG daily, Hydralazine 50 mg q8 #CAD Coronary angiogram done on 08/30/2025: Left main, LAD and circumflex are patent, RCA patent, EF is 50-55% #Severe pulmonary hypertension R/L heart catheterization 08/30/2025: RA pressure 18 mmHg, RV pressure 62/16 mmHg, pulmonary artery pressure 66/18 mmHg, capillary wedge pressure: 17 mmHg Per cardiology: Sildenafil 20mg NG TID, testing testing 40 but this was lowered Respiratory Ventilator Intubated (08/21/2025) Extubated (09/07/2025) # Acute hypercapnic respiratory failure secondary to pulmonary edema s/p Extubation # Acute hypoxic respiratory failure # Respiratory acidosis (resolving) Discontinued oxygen supplementation with Oxymizer Med neb treatment with Ipratropium, levalbuterol Mucomyst 100 mg q 8 hours PT evaluation requested Continue oxygen supplementation, currently on 6 L oxygen. Continue tapering as tolerated. # Acute COPD exacerbation Methylprednisolone 40 mg IV, discontinued Medneb treatment with Ipratropium medneb, Albuterol medneb Ceftriaxone 1 g IV daily (discontinued) # Community acquired pneumonia due to Gram-positive/Gram-negative pneumonia/ Influenza A and B POA Tamiflu 30 mg BID suspension, discontinued Discontinued Zosyn, continue vancomycin. Start IV Ceftriaxone Gastrointestinal NG tube reinserted (09/13/2025); failed swallow evaluation # Peptic ulcer prophylaxis Pantoprazole 40 mg IV daily # Constipation Lactulose 15 mL Genitourinary Replace Meng catheter (09/12/25) Replace Meng catheter 09/18/2025 # Possible Complicated UTI, resolving UA positive for UTI Ceftriaxone 1 g IV daily, discontinued Previously switched cefepime to vancomycin and Zosyn Discontinue vancomycin and context of eosinophilia. Started on Rocephin Nephrology # COLE on CKD likely hemodynamically mediated/ VMN Supportive management with IV fluids given Nephrology on board, recommended hemodialysis Patient initially had dialysis catheter in the right femoral region, removed. Interventional radiology on board, tunneled catheter placement deferred till confirmation with negative blood cultures. Kidney ultrasound shows no acute abnormality Nephrology on board, recommended hemodialysis, richy Marie in the interim. Continue tube feeding, monitor fluid balances, strict I&Os On Hemodialysis Started on Bumex 2 mg IV on 09/16/2025 # Hyperkalemia, resolved Per nephrology: trial of forced diuresis to enhance potassium excretion, serial chemistry panels, IV bicarbonate infusion, and avoidance of IV contrast if able. # Hypokalemia Supplemented # Acute metabolic acidosis # Nephrotic syndrome secondary to underlying diabetic nephropathy, possible # Hypernatremia, resolved D5W, discontinued Infectious disease # Sepsis POA d/t below # Influenza A and B Pneumonia POA Serology positive for Influenza A & B Tamiflu 30 mg BID suspension, discontinued # Possible Complicated UTI, present on admission Ceftriaxone 1 g IV daily, discontinued Discontinued cefepime; continue vancomycin. Discontinued Zosyn. Continue IV Rocephin. Hem/oncology # Thrombocytopenia, resolved # Microcytic, hypochromic anemia # Heparin induced thrombocytopenia type 1, possible Intermediate possibility of HIT on 4Ts score Platelet count trending down, consider discontinuing heparin if platelet count continues to trend down; absolute contraindication<50 K. Can also consider discontinuing vancomycin Monitor CBC # Eosinophilia Switched Zosyn to IV Rocephin. Eosinophil continues to trend down, can consider discontinuing vancomycin tomorrow if the eosinophil count remains high. Monitor CBC Endocrine # Type 2 diabetes mellitus Mild Sliding scale Monitor blood glucose # Class 1 Obesity BMI 30 DVT prophylaxis: Heparin 5000 U BID PUD prophylaxis: Pantoprazole 40 mg IV daily Lines: - L femoral Central line 08/20/2025 - discontinued on 08/29/2025 - L internal jugular central line 08/29/2025 09/08/2025 - Meng catheter 08/20/2025 - ET tube: 08/21/2025 (extubated 09/07/2025) - Femoral Frank catheter: 08/30/2025- 09/10/2025 - Mid line: 09/08/2025 - Frank catheter 09/12/25 Nutrition: Nepro Critical care time 71 minutes excluding procedure. Goals of care discussed with nurses, Susy Ohara on bedside. Plan discussed with Dr. Martell Plan discussed with: Daughter, Other (nurses) My Orders My Orders Orders - URIAH NOBLE RESIDENT Procedure Category Date Status Time Potassium LAB 09/18/25 Logged 13:00 Basic Metabolic Panel LAB 09/19/25 Verified 04:00 Complete Blood Count LAB 09/19/25 Verified 04:00 Vancomycin,Random LAB 09/19/25 Verified 04:00 Dietary Evaluation Review Comments: Nutrition Recommendation: 1) EN [place] Carbsteady @ 30ml/hr x 24hr (goal) along with Pro-stat 1 pk BID. Water flush 50ml Q6H if allowed, adjust PRN. TF at goal volume along with propofol & Pro-stat provide 1777 kcal (100%), 89 gm protein (83%), and 723 ml free water(including flush). 2) TPN if NPO >7 days 3) Monitor NPO status, lab values, weight trend, and I/O Expected Outcomes/Goals: Intake to meet >75% estimated needs Lab values to improve FU 2-3 days URIAH NOBLE RESIDENT Sep 18, 2025 13:08
--- NOTE | 2025-09-18 15:56 | DVHPN2 ---
Progress Note Date Seen: Sep 18, 2025 Has the PT tested + for MRSA If YES, has PT been informed?: No Medical Necessity Reason Pt with a Central, PICC or Fol: Yes The following are medically ne: Meng Catheter Reason for meng catheter: Strict I&O Subjective Review of Systems: Deferred Objective vital signs Vital Sign Date Time Temp Pulse Resp B/P (MAP) Pulse Ox O2 Delivery O2 Flow Rate FiO2 09/18/25 14:00 112/55 09/18/25 12:36 90 18 100 09/18/25 12:26 Nasal Cannula* 4 36 09/18/25 12:01 98.3 98.3 Total Intake and Output 09/17/25 09/17/25 09/18/25 15:00 23:00 07:00 Intake Total 50 ml 240 ml 100 ml Output Total 200 ml 400 ml Balance 50 ml 40 ml -300 ml medications Current Medications Medications Dose Ordered Sig/Adri Route Start Time Stop Time Status Last Admin Dose Admin Multivit/Ca Carb/ B Cmplx/FA/Prenat 1 tab DAILY PO 08/21/25 10:00 09/18/25 09:08 1 TAB Diagnostic Test (Pha) 1 strip ACHS 08/21/25 07:00 09/18/25 11:27 1 STRIP Insulin Human Regular ACHS SC 08/21/25 07:00 09/16/25 17:58 2 UNITS Dextrose 50 ml UD PRN IV 08/20/25 23:15 Sodium Chloride 10 ml Q8HR IV 08/21/25 06:00 09/18/25 14:34 10 ML Docusate Sodium 100 mg BIDPRN PRN PO 08/20/25 23:15 Acetaminophen 650 mg Q6HP PRN PO 08/20/25 23:15 09/17/25 23:20 650 MG Nitroglycerin 0.4 mg Q5MINP PRN SL 08/20/25 23:15 Hold Pantoprazole Sodium 40 mg DAILY IV 08/22/25 10:00 09/18/25 09:08 40 MG Sildenafil Citrate 20 mg TID@08,14,20 NG 08/30/25 20:00 09/18/25 14:35 20 MG Amlodipine Besylate 10 mg DAILY PO 09/01/25 10:45 09/18/25 09:07 10 MG Amino Acid Protein 30 ml Q6HR GT 09/03/25 00:00 09/18/25 01:15 30 ML Hydralazine HCl 50 mg Q8HR PO 09/05/25 22:00 09/18/25 06:35 50 MG Levalbuterol HCl 1.25 mg Q6HR NEB 09/09/25 12:00 09/18/25 12:26 1.25 MG Acetylcysteine 100 mg Q6HR NEB 09/09/25 12:00 09/18/25 12:26 100 MG Ipratropium [place] 0.5 mg Q6HR NEB 09/09/25 12:00 09/18/25 12:26 0.5 MG Vancomycin HCl 0 ml @ 0 mls/hr PER PHARMACY IV 09/12/25 16:15 Hydralazine HCl 10 mg Q6HP PRN IV 09/12/25 20:00 09/14/25 18:14 10 MG Heparin Sodium (Porcine) 5,000 units Q12HR SC 09/12/25 22:00 09/17/25 22:16 5,000 UNITS Albumin Human 100 ml @ 100 mls/hr PRN PRN IV 09/13/25 07:00 09/15/25 11:23 100 MLS/HR Ceftriaxone Sodium 50 ml @ 100 mls/hr DAILY@09 IV 09/16/25 09:00 09/18/25 09:06 100 MLS/HR Bumetanide 2 mg DAILY IV 09/16/25 14:00 09/18/25 09:07 2 MG Ondansetron HCl 4 mg Q4HPRN PRN IV 09/18/25 05:45 Examination: GENERAL:Abnormal, CVS:Normal, ABDOMEN:Normal, SKIN:Normal laboratory and microbiology Laboratory Tests 09/18/25 05:11 Test 09/18/25 05:11 Range/Units Serum Glucose 88 74-106 mg/dL Microbiology Date/Time Source Procedure Growth Status 09/17/25 09:41 Blood Blood Culture - Preliminary NO GROWTH AFTER 24 HOURS OF INCUBATION. Resulted 08/22/25 12:52 Urine - [place] Urine Culture - Final Complete 08/22/25 08:06 Nose MRSA Screen - Final Complete Problem List/Assessment/Plan Problem List/Assessment/Plan Acute kidney injury superimposed Chronic Kidney Disease stage III B secondary hemodynamic mediated, ATN on dialysis Acute hypoxic respiratory failure, patient intubated on ventilator extubated Community-acquired pneumonia , influenza Diabetes mellitus type 2 Nephrotic syndrome secondary to underlying diabetic nephropathy hypertension BCX NGTD HD friday WBC improving pending TC placement after neg BCX tube feeding via NGT monitor fluid balances Strict I&Os kidney ultrasound reported within normal limit IV antibiotics Avoid nephrotoxic medications will need chairtime after TC is placed Plan discussed with: Patient Dietary Evaluation Review Comments: Nutrition Recommendation: 1) EN Nepro Carbsteady @ 30ml/hr x 24hr (goal) along with Pro-stat 1 pk BID. Water flush 50ml Q6H if allowed, adjust PRN. TF at goal volume along with propofol & Pro-stat provide 1777 kcal (100%), 89 gm protein (83%), and 723 ml free water(including flush). 2) TPN if NPO >7 days 3) Monitor NPO status, lab values, weight trend, and I/O Expected Outcomes/Goals: Intake to meet >75% estimated needs Lab values to improve FU 2-3 days KELLY DIAZ MD Sep 18, 2025 15:56
--- NOTE | 2025-09-18 23:56 | DVHPN2 ---
Subjective DOS: 09/18/2025 Patient seen and examined at bedside. On supplemental oxygen Overnight events reviewed. Changes from previous H/P or p: No Changes Eyes: No Pain, No Vision change, No Conjunctivae inflammation, No Eyelid inflammation, No Other, No Redness ENT: No Ear pain, No Ear discharge, No Nose pain, No Nose discharge, No Nose congestion, No Mouth pain, No Mouth swelling, No Throat pain, No Throat swelling, No Other Cardiovascular: Chest Pain Respiratory: Shortness of breath, Other Gastrointestinal: No Nausea, No Vomiting, No Abdominal Pain, No Diarrhea, No Constipation, No Melena, No Hematochezia, No Other Genitourinary: Other Musculoskeletal: other Skin: Other Objective Vitals Vital Signs Date Time Temp Pulse Resp B/P (MAP) Pulse Ox O2 Delivery O2 Flow Rate FiO2 09/18/25 22:43 96 15 98 09/18/25 22:32 Nasal Cannula* 3 32 09/18/25 22:00 131/58 09/18/25 20:00 99.3 99.3 Intake/Output Intake and Output 09/18/25 07:00 Intake Total 390 ml Output Total 600 ml Balance -210 ml Intake Oral 340 ml IV Total 50 ml Output Urine Total 400 ml Emesis 200 ml # Bowel Movements 3 Exam Gen.: Patient lying in bed in no apparent distress. On supplemental oxygen. Head: Normocephalic, atraumatic. Eyes: EOMI/PERRLA. Ears: Normal hearing. Normal anatomy. Neck/trachea: Trachea midline, supple. Nose: Normal external anatomy. Mouth: Moist mucous membranes. Chest: Decreased air entry bilaterally. No wheezing or rhonchi. Cardiovascular: Positive S1, positive S2. Regular rate and rhythm. Abdomen: Positive bowel sounds in all 4 quadrants. Soft, non-tender, non- distended. : Deferred. Rectal: Deferred. Skin: Warm, dry. Intact. Extremities: 2+ radial pulses bilaterally. No lower extremity edema. Neuro: Awake, alert, oriented x3. No gross motor or sensory deficits. Cranial nerves II through XII intact. Gait not assessed. Medications Current Medications Medications Dose Ordered Sig/Adri Route Start Time Stop Time Status Last Admin Dose Admin Multivit/Ca Carb/ B Cmplx/FA/Prenat 1 tab DAILY PO 08/21/25 10:00 09/18/25 09:08 1 TAB Diagnostic Test (Pha) 1 strip ACHS 08/21/25 07:00 09/18/25 22:02 1 STRIP Insulin Human Regular ACHS SC 08/21/25 07:00 09/16/25 17:58 2 UNITS Dextrose 50 ml UD PRN IV 08/20/25 23:15 Sodium Chloride 10 ml Q8HR IV 08/21/25 06:00 09/18/25 22:00 10 ML Docusate Sodium 100 mg BIDPRN PRN PO 08/20/25 23:15 Acetaminophen 650 mg Q6HP PRN PO 08/20/25 23:15 09/17/25 23:20 650 MG Nitroglycerin 0.4 mg Q5MINP PRN SL 08/20/25 23:15 Hold Pantoprazole Sodium 40 mg DAILY IV 08/22/25 10:00 09/18/25 09:08 40 MG Sildenafil Citrate 20 mg TID@08,14,20 NG 08/30/25 20:00 09/18/25 20:44 20 MG Amlodipine Besylate 10 mg DAILY PO 09/01/25 10:45 09/18/25 09:07 10 MG Amino Acid Protein 30 ml Q6HR GT 09/03/25 00:00 09/18/25 17:59 30 ML Hydralazine HCl 50 mg Q8HR PO 09/05/25 22:00 09/18/25 22:00 50 MG Levalbuterol HCl 1.25 mg Q6HR NEB 09/09/25 12:00 09/18/25 22:33 1.25 MG Acetylcysteine 100 mg Q6HR NEB 09/09/25 12:00 09/18/25 22:33 100 MG Ipratropium [place] 0.5 mg Q6HR NEB 09/09/25 12:00 09/18/25 22:33 0.5 MG Vancomycin HCl 0 ml @ 0 mls/hr PER PHARMACY IV 09/12/25 16:15 Hydralazine HCl 10 mg Q6HP PRN IV 09/12/25 20:00 09/14/25 18:14 10 MG Heparin Sodium (Porcine) 5,000 units Q12HR SC 09/12/25 22:00 09/18/25 22:02 5,000 UNITS Albumin Human 100 ml @ 100 mls/hr PRN PRN IV 09/13/25 07:00 09/15/25 11:23 100 MLS/HR Ceftriaxone Sodium 50 ml @ 100 mls/hr DAILY@09 IV 09/16/25 09:00 09/18/25 09:06 100 MLS/HR Bumetanide 2 mg DAILY IV 09/16/25 14:00 09/18/25 09:07 2 MG Ondansetron HCl 4 mg Q4HPRN PRN IV 09/18/25 05:45 Laboratory Results Laboratory Tests 09/18/25 05:11 09/18/25 14:40 Chemistry Test 09/18/25 05:11 Calcium Level 9.1 mg/dL (8.7-10.4) Magnesium Level 2.0 mg/dL (1.6-2.6) Urinalysis Test 08/22/25 11:43 08/22/25 12:52 09/06/25 04:00 Urine WBC Clumps Present /hpf (None Seen) Urine Hyaline Casts Mod /lpf (0 - 2) Urine Mucus Few (None Seen) Urine Protein/Creatinine Ratio 4.08 Urine Total Protein 204.4 mg/dL (1-14) H Urine Creatinine 52.93 mg/dL (30.0-125.0) Urine Sodium 114 mmol/L (40-220) Urine Color Light-orange (Yellow) Urine Clarity Turbid (Clear) H Urine pH 7.5 (5.0-9.0) Urine Specific [place] 1.019 (1.001-1.035) Urine Protein 3+ (Negative) H Urine Ketones 1+ (Negative) H Urine Blood 3+ /uL (Negative) H Urine Nitrite Negative (Negative) Urine Bilirubin Negative (Negative) Urine Urobilinogen Normal mg/dL (Negative) Urine Leukocyte Esterase Negative /uL (Negative) Urine RBC 1386 /hpf (0 - 4) Urine Microscopic WBC 9 /HPF (0-5) H Urine Squamous Epithelial Cells Few /hpf (<5) Urine Bacteria None seen /hpf (None Seen) Urine Glucose 2+ mg/dL (Normal) H Microbiology Microbiology Date/Time Source Procedure Growth Status 09/17/25 09:41 Blood Blood Culture - Preliminary NO GROWTH AFTER 24 HOURS OF INCUBATION. Resulted 08/22/25 12:52 Urine - [place] Urine Culture - Final Complete 08/22/25 08:06 Nose MRSA Screen - Final Complete Assessment/Plan Assessment/Plan Impression: Acute hypoxic respiratory failure Acute hypercapnic respiratory failure Dependence on supplemental oxygen Pulmonary edema Pulmonary hypertension Metabolic acidosis Acute renal failure Morbid obesity Events: Patient remains on supplemental oxygen On 4 LPM NC Taper O2 as tolerated; improved O2 requirements Patient passed swallow eval yesterday. Today, she was confused, A&O x1. HD per Nephrology - underwent hemodialysis yesterday Follow up Nephrology recs Chest x-ray reviewed, notable for pulmonary vascular congestion. Continue antibiotics, vancomycin and ceftriaxone. Blood cultures from 09/15/2025 show Gram-positive cocci in clusters, coagulase negative Staphylococcus, pending ID and susceptibility. Repeat blood cultures ordered on 09/17/25. WBC trended up to 15.3 K Continue bronchodilators Mucomyst Femoral Frank catheter was removed - concern as cause of elevated WBC Monitor temperatures Continue to monitor platelets Continue physical therapy Diurese with Bumex Maintain euvolemia Monitor renal function Monitor electrolytes, supplement as necessary Hypokalemia, potassium supplemented Monitor urine output Anxiolytic PRN Labs and imaging reviewed. Rest of plan as noted below. Plan: S/p extubation on 09/07/25 On supplemental oxygen Titrate to keep O2 sats above 90%. Continue antibiotics. Continue bronchodilators Mucomyst Pressors as necessary for hemodynamic support Titrate to keep mean arterial pressure greater than 65 mmHg. Hemodialysis per Nephrology Monitor renal function Monitor electrolytes. Supplement as necessary. Monitor ins and outs. Recommend diet and lifestyle modifications for weight reduction Obesity complicates all care GI prophylaxis. DVT prophylaxis. Prognosis: Poor given patient's multiple co-morbidities. Rest of plan per hospitalist and other consultants. Thank you, Dr. Mike Zheng, for allowing me to participate in this patient's care. Further recommendations will depend on the patient's clinical course. Please do not hesitate to contact me if you have any questions or concerns. This medical document was created using an electronic medical record system with [employer] dictation system. Although these documentations are being carefully reviewed, there may still be some phonetic and typographical changes. The errors are purely typographical, due to imperfection on the software program, and do not reflect any compromise in the patient's medical care. Plan discussed with: Other (RN) Visit Coding Pulmonary Billing Provider: RAVI SABA MD Date of Service if different f: Sep 18, 2025 Common Visit Codes: [id number] INP/OBS CARE(HIGH), [id number] CARE 30-74 MIN RAVI SABA MD Sep 18, 2025 23:56
[2025-09-19] VITALS (26 sets, daily range): BP systolic 84–177; BP diastolic 29–73; PULSE 70–100; RESP 12–18; TEMP 98.2–98.9; O2SAT 77–100
[2025-09-19] MEDS: ACETYLCYSTEINE 10 %(100MG/ML) SOL 4ML ONE (05:54)
[2025-09-19] MEDS: LEVALBUTEROL HCL 1.25 MG/3 ML NEB ONE (05:55)
[2025-09-19] MEDS: IPRATROPIUM BROM 0.5 MG/2.5ML INH SOL ONE (05:55)
[2025-09-19 06:31] LABS: Hematocrit 35.8 % (36.0-46.0); Hemoglobin 10.3 g/dL (12.2-16.2); Mean Corpuscular Hemoglobin 19.1 pg (28.0-32.0); Mean Corpuscular Volume 66.4 fL (80.0-100.0); Nucleated Red Blood Cells % 0.1 %
[2025-09-19 06:36] LABS: Anion Gap 10 (5-15); Carbon Dioxide 29 mmol/L (20-31); Potassium 3.8 mmol/L (3.5-5.1); Sodium 136 mmol/L (136-145)
[2025-09-19 06:37] LABS: Calcium 8.8 mg/dL (8.7-10.4)
[2025-09-19 06:38] LABS: Chloride 97 mmol/L (98-107)
[2025-09-19 06:42] LABS: BUN/Creatinine Ratio 8.8 (10.0-20.0); Glucose 87 mg/dL (74-106)
[2025-09-19 06:47] LABS: Blood Urea Nitrogen 55 mg/dL (9-23)
--- NOTE | 2025-09-19 10:19 | DVHPN2 ---
Progress Note Date Seen: Sep 19, 2025 Has the PT tested + for MRSA If YES, has PT been informed?: No Medical Necessity Reason Pt with a Central, PICC or Fol: Yes The following are medically ne: Meng Catheter Reason for meng catheter: Strict I&O Subjective Patient reports: No new complaints Other Systems: Patient seen and examined by myself today in follow-up Objective vital signs Vital Sign Date Time Temp Pulse Resp B/P (MAP) Pulse Ox O2 Delivery O2 Flow Rate FiO2 09/19/25 09:47 97/46 09/19/25 06:33 100 16 77 09/19/25 06:23 Nasal Cannula 3.0 09/19/25 06:23 32 09/19/25 00:01 98.9 98.9 Total Intake and Output 09/18/25 09/18/25 09/19/25 15:00 23:00 07:00 Intake Total 50 ml 100 ml 100 ml Output Total 150 ml 215 ml Balance 50 ml -50 ml -115 ml medications Current Medications Medications Dose Ordered Sig/Adri Route Start Time Stop Time Status Last Admin Dose Admin Multivit/Ca Carb/ B Cmplx/FA/Prenat 1 tab DAILY PO 08/21/25 10:00 09/19/25 09:47 1 TAB Diagnostic Test (Pha) 1 strip ACHS 08/21/25 07:00 09/19/25 07:04 1 STRIP Insulin Human Regular ACHS SC 08/21/25 07:00 09/16/25 17:58 2 UNITS Dextrose 50 ml UD PRN IV 08/20/25 23:15 Sodium Chloride 10 ml Q8HR IV 08/21/25 06:00 09/19/25 06:00 10 ML Docusate Sodium 100 mg BIDPRN PRN PO 08/20/25 23:15 Acetaminophen 650 mg Q6HP PRN PO 08/20/25 23:15 09/17/25 23:20 650 MG Nitroglycerin 0.4 mg Q5MINP PRN SL 08/20/25 23:15 Hold Pantoprazole Sodium 40 mg DAILY IV 08/22/25 10:00 09/19/25 09:43 40 MG Sildenafil Citrate 20 mg TID@08,14,20 NG 08/30/25 20:00 09/19/25 08:38 20 MG Amino Acid Protein 30 ml Q6HR GT 09/03/25 00:00 09/19/25 06:00 30 ML Hydralazine HCl 50 mg Q8HR PO 09/05/25 22:00 09/19/25 07:04 50 MG Levalbuterol HCl 1.25 mg Q6HR NEB 09/09/25 12:00 09/19/25 06:23 1.25 MG Acetylcysteine 100 mg Q6HR NEB 09/09/25 12:00 09/19/25 06:22 100 MG Ipratropium [place] 0.5 mg Q6HR NEB 09/09/25 12:00 09/19/25 06:22 0.5 MG Vancomycin HCl 0 ml @ 0 mls/hr PER PHARMACY IV 09/12/25 16:15 Hydralazine HCl 10 mg Q6HP PRN IV 09/12/25 20:00 09/14/25 18:14 10 MG Heparin Sodium (Porcine) 5,000 units Q12HR SC 09/12/25 22:00 09/19/25 09:43 5,000 UNITS Albumin Human 100 ml @ 100 mls/hr PRN PRN IV 09/13/25 07:00 09/15/25 11:23 100 MLS/HR Ceftriaxone Sodium 50 ml @ 100 mls/hr DAILY@09 IV 09/16/25 09:00 09/19/25 08:38 100 MLS/HR Bumetanide 2 mg DAILY IV 09/16/25 14:00 09/19/25 09:47 2 MG Ondansetron HCl 4 mg Q4HPRN PRN IV 09/18/25 05:45 Examination: LUNGS:Normal, CVS:Normal, MSK:Normal laboratory and microbiology Laboratory Tests 09/19/25 05:58 Test 09/19/25 05:58 Range/Units Serum Glucose 87 74-106 mg/dL Microbiology Date/Time Source Procedure Growth Status 09/17/25 09:41 Blood Blood Culture - Preliminary NO GROWTH AFTER 48 HOURS OF INCUBATION. Resulted 08/22/25 12:52 Urine - Meng Port Urine Culture - Final Complete 08/22/25 08:06 Nose MRSA Screen - Final Complete Problem List/Assessment/Plan Problem List/Assessment/Plan ESRD requiring intermittent HD Acute hypoxic respiratory failure, extubated Community-acquired pneumonia Diabetes mellitus type 2 Nephrotic syndrome secondary to underlying diabetic nephropathy Hyperkalemia Hypernatremia due to insensible water loss Recommendations Hemodialysis tomorrow Epogen 4000 subQ 3 times weekly Hyperkalemia resolved Hypernatremia appropriately resolved Strict I&Os kidney ultrasound reported within normal limit IV antibiotics Discontinue amlodipine due to low blood pressure Avoid nephrotoxic medications We will continue to follow Plan discussed with: Patient Dietary Evaluation Review Comments: Nutrition Recommendation: 1) EN Nepro Carbsteady @ 30ml/hr x 24hr (goal) along with Pro-stat 1 pk BID. Water flush 50ml Q6H if allowed, adjust PRN. TF at goal volume along with propofol & Pro-stat provide 1777 kcal (100%), 89 gm protein (83%), and 723 ml free water(including flush). 2) TPN if NPO >7 days 3) Monitor NPO status, lab values, weight trend, and I/O Expected Outcomes/Goals: Intake to meet >75% estimated needs Lab values to improve FU 2-3 days JEANNE WHITE MD Sep 19, 2025 10:19
[2025-09-19] MEDS: Nepro With Carb Steady 1 Liter Bottle GT SCH (10:49)
--- NOTE | 2025-09-19 17:07 | DVHPN2 ---
Progress Note - Dictate Date Seen: Sep 19, 2025 Has the PT tested + for MRSA If YES, has PT been informed?: No Medical Necessity Reason Pt with a Central, PICC or Fol: Yes The following are medically ne: Meng Catheter Reason for meng catheter: Strict I&O Subjective PT WELL KNOWN TO ME ORGANIC HEART DISEASE CAD HFrEF HTN 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 HYPERKALEMIA COPD HYPERLIPIDEMIA SIGN SX COMPLEX OF NOW WITH SOB CHEST PAIN RENAL FAILURE HYPERKALEMIA RESP FAILURE REQUIRING INTUBATION vital signs Vital Sign Date Time Temp Pulse Resp B/P (MAP) Pulse Ox O2 Delivery O2 Flow Rate FiO2 09/19/25 16:19 98.6 70 16 97/48 (64) 91 98.6 09/19/25 16:00 Nasal Cannula* 4 36 Total Intake and Output 09/18/25 09/18/25 09/19/25 15:00 23:00 07:00 Intake Total 50 ml 100 ml 100 ml Output Total 150 ml 215 ml Balance 50 ml -50 ml -115 ml medications Current Medications Medications Dose Ordered Sig/Adri Route Start Time Stop Time Status Last Admin Dose Admin Multivit/Ca Carb/ B Cmplx/FA/Prenat 1 tab DAILY PO 08/21/25 10:00 09/19/25 09:47 1 TAB Diagnostic Test (Pha) 1 strip ACHS 08/21/25 07:00 09/19/25 11:53 1 STRIP Insulin Human Regular ACHS SC 08/21/25 07:00 09/16/25 17:58 2 UNITS Dextrose 50 ml UD PRN IV 08/20/25 23:15 Sodium Chloride 10 ml Q8HR IV 08/21/25 06:00 09/19/25 14:40 10 ML Docusate Sodium 100 mg BIDPRN PRN PO 08/20/25 23:15 Acetaminophen 650 mg Q6HP PRN PO 08/20/25 23:15 09/17/25 23:20 650 MG Nitroglycerin 0.4 mg Q5MINP PRN SL 08/20/25 23:15 Hold Pantoprazole Sodium 40 mg DAILY IV 08/22/25 10:00 09/19/25 09:43 40 MG Sildenafil Citrate 20 mg TID@08,14,20 NG 08/30/25 20:00 09/19/25 14:40 20 MG Amino Acid Protein 30 ml Q6HR GT 09/03/25 00:00 09/19/25 12:45 30 ML Levalbuterol HCl 1.25 mg Q6HR NEB 09/09/25 12:00 09/19/25 11:28 1.25 MG Acetylcysteine 100 mg Q6HR NEB 09/09/25 12:00 09/19/25 11:28 100 MG Ipratropium [place] 0.5 mg Q6HR NEB 09/09/25 12:00 09/19/25 11:28 0.5 MG Heparin Sodium (Porcine) 5,000 units Q12HR SC 09/12/25 22:00 09/19/25 09:43 5,000 UNITS Albumin Human 100 ml @ 100 mls/hr PRN PRN IV 09/13/25 07:00 09/15/25 11:23 100 MLS/HR Ceftriaxone Sodium 50 ml @ 100 mls/hr DAILY@09 IV 09/16/25 09:00 09/19/25 08:38 100 MLS/HR Bumetanide 2 mg DAILY IV 09/16/25 14:00 09/19/25 09:47 2 MG Ondansetron HCl 4 mg Q4HPRN PRN IV 09/18/25 05:45 laboratory and microbiology Laboratory Tests 09/19/25 05:58 Test 09/19/25 05:58 Range/Units Serum Glucose 87 74-106 mg/dL Problem List ORGANIC HEART DISEASE CAD HFrEF HTN 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 HYPERKALEMIA COPD HYPERLIPIDEMIA SIGN SX COMPLEX OF NOW WITH SOB CHEST PAIN RENAL FAILURE HYPERKALEMIA RESP FAILURE REQUIRING INTUBATION EXTUBATED MENINGIOMA NO CHANGE Assessment/Plan CORRECT HYPERKALEMIA CONSIDER ECHO IF INCONCLUSIVE CONSIDER L/RHC BNP 370 ABX DC BUMEX START IVF AT 100 CC/HR ADD LOKELMA K+ CORRECTED REPEAT BNP WILL PROCEED WITH L/RHC ON FRIDAY POSITIVE FOR INFLUENZA A AND B POSITIVE START WEANING PT CON IV FLUID L/RHC NL CORONARIES EF >50% LVEDP 17mmHg RHC RA 15-27mmHg RV 62/17 PA`66/ 18 PCWP 17 SEVERE PUL HYPERTENSION START REVATIO 20 MG TID HEMODIALYSIS IN AM CHEST CXR STILL WITH INFILTRATIVE PROCESS START WEAN SEDATION WITH HD SIGNIFICANT IMPROVEMENT IN LUNG EFFUSION AND INFILTRATE STOP SEDATION WEAN PT OFF VENT OTHERWISE CONSIDER TRACH CHEST CXR APPEARS TO HAVE IMPROVED SIGNIFICANTLY COMPARED TO 08/29/25 LAST RIGHT SIDED EFFUSION SIGNIFICANT CLEARING OF INTERSTITIAL INFILTRATE OFF SEDATION EXTUBATED DIALYSIS UREMIC LEUKOCYTOSIS CXR ABG RESP ACIDOSIS IMPROVED WITH LOWER O2 LEUKOCYTOSIS CONSIDER CT CHEST CXR STABLE WITH MILD IMPROVEMENT OF INFILTRATE PT Dietary Evaluation Review Comments: Nutrition Recommendation: 1) EN Nepro Carbsteady @ 30ml/hr x 24hr (goal) along with Pro-stat 1 pk BID. Water flush 50ml Q6H if allowed, adjust PRN. TF at goal volume along with propofol & Pro-stat provide 1777 kcal (100%), 89 gm protein (83%), and 723 ml free water(including flush). 2) TPN if NPO >7 days 3) Monitor NPO status, lab values, weight trend, and I/O Expected Outcomes/Goals: Intake to meet >75% estimated needs Lab values to improve FU 2-3 days Plan discussed with: Patient RAMIN GARCIA MD Sep 19, 2025 17:07
--- NOTE | 2025-09-19 17:15 | DVHPNRES ---
Progress Note Date Seen: Sep 19, 2025 Resident Creating Document: URIAH NOBLE RESIDENT Has the PT tested + for MRSA If YES, has PT been informed?: No Medical Necessity Reason Pt with a Central, PICC or Fol: Yes The following are medically ne: Meng Catheter Reason for meng catheter: Strict I&O Subjective Review of Systems Ms. Marin is a 75-year-old female with prior medical history of HFpEF, COPD with home oxygen, gout, anxiety, type 2 diabetes mellitus, hyperlipidemia, hypertension, and PAD, who bas brought to the [facility] by EMS with chief complaint of shortness of breath and back and midsternal non-radiating chest pain. Daughter reported progressively worsening shortness of breath for the last 2 weeks associated with general malaise and orthopnea, describing very wet coughing sounds when her mother lays flat. She states that her mother began complaining of worsening shortness of breath associated with non-radiating midsternal chest pain which prompted her to call EMS. Per record, on seen she was saturating 74%, she was placed on CPAP with inspiration increasing to 88% on route to the emergency department. On evaluation in the ED, patient was afebrile, slightly hypertensive, and tachypneic, saturating 81% which she was placed on BiPAP. Initial labs significant for leukocytosis of 11.3, with elevated hematocrit, and thrombocytopenia, hyperkalemia, creatinine 4.09, BUN 46, and ABG significant for respiratory acidosis, troponins are negative, BNP 2515.41. Serology was positive for influenza A and B. Chest x-ray showed moderate to severe pulmonary edema. Patient further deteriorated requiring intubation for respiratory distress. She was started on IV Lasix, IV methylprednisolone, hyperkalemia protocol, bicarbonate drip, and nitroglycerin drip. Prior Medical history: CHF, COPD, gout, anxiety, type 2 diabetes mellitus, hyperlipidemia, hypertension, PAD, pulmonary hypertension Previous surgical history: Left leg stenting for PAD Allergies: Denies Social history: Daughter reports the patient smokes cigarettes with cessation approximately 20 years ago Home medications: Allopurinol, insulin, gabapentin, simvastatin, tadalafil 07/20/2025: Patient was seen at bedside. She passed swallow evaluation over the weekend; patient appears more confused in the morning as the day progresses patient is more alert and oriented. Blood culture positive for coagulase negative Staphylococcus epidermidis, likely due to contamination. Discontinued hydralazine in context of normal blood pressure. Discontinued vancomycin in context of absence of a left shift. We will consult social sciences chair for placement in SNF, patient will undergo tunneled catheter placement with Radiology, interventional Radiology consulted. Physical therapy on board. Objective vital signs Vital Sign Date Time Temp Pulse Resp B/P (MAP) Pulse Ox O2 Delivery O2 Flow Rate FiO2 09/19/25 16:19 98.6 70 16 97/48 (64) 91 98.6 09/19/25 16:00 Nasal Cannula* 4 36 Total Intake and Output 09/18/25 09/18/25 09/19/25 15:00 23:00 07:00 Intake Total 50 ml 100 ml 100 ml Output Total 150 ml 215 ml Balance 50 ml -50 ml -115 ml medications Current Medications Medications Dose Ordered Sig/Adri Route Start Time Stop Time Status Last Admin Dose Admin Multivit/Ca Carb/ B Cmplx/FA/Prenat 1 tab DAILY PO 08/21/25 10:00 09/19/25 09:47 1 TAB Diagnostic Test (Pha) 1 strip ACHS 08/21/25 07:00 09/19/25 11:53 1 STRIP Insulin Human Regular ACHS SC 08/21/25 07:00 09/16/25 17:58 2 UNITS Dextrose 50 ml UD PRN IV 08/20/25 23:15 Sodium Chloride 10 ml Q8HR IV 08/21/25 06:00 09/19/25 14:40 10 ML Docusate Sodium 100 mg BIDPRN PRN PO 08/20/25 23:15 Acetaminophen 650 mg Q6HP PRN PO 08/20/25 23:15 09/17/25 23:20 650 MG Nitroglycerin 0.4 mg Q5MINP PRN SL 08/20/25 23:15 Hold Pantoprazole Sodium 40 mg DAILY IV 08/22/25 10:00 09/19/25 09:43 40 MG Sildenafil Citrate 20 mg TID@08,14,20 NG 08/30/25 20:00 09/19/25 14:40 20 MG Amino Acid Protein 30 ml Q6HR GT 09/03/25 00:00 09/19/25 12:45 30 ML Levalbuterol HCl 1.25 mg Q6HR NEB 09/09/25 12:00 09/19/25 11:28 1.25 MG Acetylcysteine 100 mg Q6HR NEB 09/09/25 12:00 09/19/25 11:28 100 MG Ipratropium [place] 0.5 mg Q6HR NEB 09/09/25 12:00 09/19/25 11:28 0.5 MG Heparin Sodium (Porcine) 5,000 units Q12HR SC 09/12/25 22:00 09/19/25 09:43 5,000 UNITS Albumin Human 100 ml @ 100 mls/hr PRN PRN IV 09/13/25 07:00 09/15/25 11:23 100 MLS/HR Ceftriaxone Sodium 50 ml @ 100 mls/hr DAILY@09 IV 09/16/25 09:00 09/19/25 08:38 100 MLS/HR Bumetanide 2 mg DAILY IV 09/16/25 14:00 09/19/25 09:47 2 MG Ondansetron HCl 4 mg Q4HPRN PRN IV 09/18/25 05:45 Examination General: Patient appeared sleepy, unable to follow commands. A&O x 2 during evaluation before noon. Patient is lethargic. A&O x4 during re- evaluation at 4:00 p.m. HEENT: Dry mucous membranes. Nystagmus POA Respiratory/pulmonary: Normal breath sounds heard Cardiovascular: Tachycardia. Normal heart sounds S1 and S2 with no associated murmurs. Abdomen: Abdomen nondistended, normal bowel sounds. Extremities: Dry, crusted planter surface of bilateral feet. SCDs present bilaterally. Sacrum: Healing sacral flap (POA) from previous sacral ulcer (POA) laboratory and microbiology Laboratory Tests 09/19/25 05:58 Test 09/19/25 05:58 Range/Units Serum Glucose 87 74-106 mg/dL Microbiology Date/Time Source Procedure Growth Status 09/17/25 09:41 Blood Blood Culture - Preliminary NO GROWTH AFTER 48 HOURS OF INCUBATION. Resulted 08/22/25 12:52 Urine - Meng [place] Urine Culture - Final Complete 08/22/25 08:06 Nose MRSA Screen - Final Complete Problem List/Assessment/Plan Problem List/Assessment/Plan Neurology Sedation/analgesia Versed Discontinued Propofol: Discontinued Fentanyl discontinued # Metabolic encephalopathy due to Uremia/ Sepsis with anxiety/agitation/ delirium POA Creatinine continues to trend up. IR deferred tunneled catheter placement for now. Temporary hemodialysis catheter inserted Ordered ABG in context of no improvement in confusion. ABG resulted WNL Ordered noncontrast CT head. Underwent hemodialysis today PT on board; social service consulted for placement in SNF for physical therapy HEENT # Night eye nystagmus Per daughter, present since Cardiovascular # Acute on chronic HFpEF (improving) # Pulmonary Edema BNP normalized; OA Chest xray 08/20/2025: Moderate to severe pulmonary edema Chest xray 08/21/2025: Cardiomegaly with pulmonary venous congestion and edema Echocardiogram 01/14/2022: EF > 60%, Limited echo windows, mild TR, MR Echocardiogram 10/22/2024: Technically good study sinus rhythm. Concentric LVH with left atrial enlargement. Mild aortic sclerosis. Mild thickening of the anterior and posterior mitral leaflets. Valves appear to be structurally normal. Left ventricular function is preserved at 60% with normal RV function. Cardiology: Pending echo, considered R/LHC if inconclusive , discontinue bumex drip Per nephrology: Trial of bumex + albumin and D5W 75 cc/hour. Bumex drip discontinued by cardiology. D5W has been discontinued due to resolution of hypernatremia Lasix discontinued Repeat CXR from 09/13/2025 shows pulmonary vascular congestion reduced in comparison to previous X-rays Chest x-ray from 09/15/2025 shows stable pulmonary vascular congestion and small pleural effusions Continue Bumex 2 mg daily per Nephrology (see below) #Hypertension Continue Amlodipine 10 mg NG daily, Hydralazine 50 mg q8 #CAD Coronary angiogram done on 08/30/2025: Left main, LAD and circumflex are patent, RCA patent, EF is 50-55% #Severe pulmonary hypertension R/L heart catheterization 08/30/2025: RA pressure 18 mmHg, RV pressure 62/16 mmHg, pulmonary artery pressure 66/18 mmHg, capillary wedge pressure: 17 mmHg Per cardiology: Sildenafil 20mg NG TID, testing testing 40 but this was lowered Respiratory Ventilator Intubated (08/21/2025) Extubated (09/07/2025) # Acute hypercapnic respiratory failure secondary to pulmonary edema s/p Extubation # Acute hypoxic respiratory failure # Respiratory acidosis (resolving) Discontinued oxygen supplementation with Oxymizer Med neb treatment with Ipratropium, levalbuterol Mucomyst 100 mg q 8 hours PT evaluation requested Continue oxygen supplementation, currently on 2 L oxygen. Continue tapering as tolerated. # Acute COPD exacerbation Methylprednisolone 40 mg IV, discontinued Medneb treatment with Ipratropium medneb, Albuterol medneb Ceftriaxone 1 g IV daily (discontinued) # Community acquired pneumonia due to Gram-positive/Gram-negative pneumonia/ Influenza A and B POA Tamiflu 30 mg BID suspension, discontinued Discontinued Zosyn, Discontinued vancomycin today. Continue IV Ceftriaxone Gastrointestinal NG tube reinserted (09/13/2025); failed swallow evaluation # Peptic ulcer prophylaxis Pantoprazole 40 mg IV daily # Constipation Lactulose 15 mL Genitourinary Replace Meng catheter (09/12/25) Replace Meng catheter 09/18/2025 # Possible Complicated UTI, resolving UA positive for UTI Ceftriaxone 1 g IV daily, discontinued Previously switched cefepime to vancomycin and Zosyn Nephrology # COLE on CKD likely hemodynamically mediated/ VMN # ESRD requiring intermittent HD Supportive management with IV fluids given Nephrology on board, recommended hemodialysis Patient initially had dialysis catheter in the right femoral region, removed. Interventional radiology on board, tunneled catheter placement deferred till confirmation with negative blood cultures. Kidney ultrasound shows no acute abnormality Nephrology on board, recommended hemodialysis, richy Marie in the interim. Continue tube feeding, monitor fluid balances, strict I&Os On Hemodialysis On Bumex 2 mg IV (started on 09/16/2025) per nephrology Radiology consulted for tunneled hemodialysis catheter Hemodialysis scheduled for today # Hyperkalemia, resolved Per nephrology: trial of forced diuresis to enhance potassium excretion, serial chemistry panels, IV bicarbonate infusion, and avoidance of IV contrast if able. # Hypokalemia Supplemented # Acute metabolic acidosis # Nephrotic syndrome secondary to underlying diabetic nephropathy, possible # Hypernatremia due to insensible water loss D5W, discontinued Infectious disease # Sepsis POA d/t below # Influenza A and B Pneumonia POA Serology positive for Influenza A & B Tamiflu 30 mg BID suspension, discontinued # Possible Complicated UTI, present on admission Ceftriaxone 1 g IV daily, discontinued Discontinued cefepime; discontinue vancomycin. Discontinued Zosyn. Continue IV Rocephin. Hem/oncology # Thrombocytopenia, resolved # Microcytic, hypochromic anemia # Heparin induced thrombocytopenia type 1, possible Intermediate possibility of HIT on 4Ts score Platelet count trending down, consider discontinuing heparin if platelet count continues to trend down; absolute contraindication<50 K. Can also consider discontinuing vancomycin Monitor CBC # Eosinophilia Switched Zosyn to IV Rocephin. Eosinophil continues to trend down, can consider discontinuing vancomycin tomorrow if the eosinophil count remains high. Monitor CBC Endocrine # Type 2 diabetes mellitus Mild Sliding scale Monitor blood glucose # Class 1 Obesity BMI 30 DVT prophylaxis: Heparin 5000 U BID PUD prophylaxis: Pantoprazole 40 mg IV daily Lines: - L femoral Central line 08/20/2025 - discontinued on 08/29/2025 - L internal jugular central line 08/29/2025 09/08/2025 - Meng catheter 08/20/2025 - ET tube: 08/21/2025 (extubated 09/07/2025) - Femoral Frank catheter: 08/30/2025- 09/10/2025 - Mid line: 09/08/2025 - Frank catheter 09/12/25 Nutrition: Nepro discontinued Continue p.o. nutrition; renal pureed diet Goals of care discussed at bedside for more than 44 minutes. Goals of care discussed with nurses, Daughter, Susy on bedside. Plan discussed with Dr. Lopez Plan discussed with: Patient, Daughter, Other (nurses) My Orders My Orders Orders - URIAH NOBLE RESIDENT Procedure Category Date Status Time Vancomycin,Random LAB 09/20/25 Verified 04:00 Creatinine LAB 09/20/25 Verified 04:00 * Management Retail Intern CONS 09/19/25 Transmitted Consult * Radiologist Consult CONS 09/19/25 Transmitted 16:19 Dietary Evaluation Review Comments: Nutrition Recommendation: 1) EN Nepro Carbsteady @ 30ml/hr x 24hr (goal) along with Pro-stat 1 pk BID. Water flush 50ml Q6H if allowed, adjust PRN. TF at goal volume along with propofol & Pro-stat provide 1777 kcal (100%), 89 gm protein (83%), and 723 ml free water(including flush). 2) TPN if NPO >7 days 3) Monitor NPO status, lab values, weight trend, and I/O Expected Outcomes/Goals: Intake to meet >75% estimated needs Lab values to improve FU 2-3 days Visit Coding STANDARD RES Billing Provider: PATRICIA LOPEZ MD Date of Service if different f: Sep 19, 2025 Common Visit Codes: [id number] INP/OBS CARE(HIGH) Secondary Visit Codes: [id number] CARE PLAN 30 MINUTES URIAH NOBLE RESIDENT Sep 19, 2025 17:15 PATRICIA LOPEZ MD Sep 20, 2025 16:27
[2025-09-20] VITALS (19 sets, daily range): BP systolic 99–158; BP diastolic 38–86; PULSE 82–103; RESP 16–20; TEMP 97.7–98.2; O2SAT 92–100
[2025-09-20] MEDS: Pro-Stat SF 30ml Vanilla PO SCH
[2025-09-20] MEDS: SODIUM CHL 0.9% 1000 ML BAG XX ONE (07:00)
[2025-09-20 07:01] LABS: Nucleated Red Blood Cells % 0.1 %
[2025-09-20 07:04] LABS: Hematocrit 33.6 % (36.0-46.0); Hemoglobin 9.8 g/dL (12.2-16.2); Mean Corpuscular Hemoglobin 19.3 pg (28.0-32.0); Mean Corpuscular Volume 66.0 fL (80.0-100.0)
[2025-09-20 07:08] LABS: Potassium 3.6 mmol/L (3.5-5.1); Sodium 137 mmol/L (136-145)
[2025-09-20 07:09] LABS: Calcium 8.8 mg/dL (8.7-10.4)
[2025-09-20 07:10] LABS: Anion Gap 14 (5-15); Carbon Dioxide 26 mmol/L (20-31); Chloride 97 mmol/L (98-107)
[2025-09-20 07:15] LABS: BUN/Creatinine Ratio 9.2 (10.0-20.0)
[2025-09-20 07:16] LABS: Blood Urea Nitrogen 63 mg/dL (9-23); Glucose 73 mg/dL (74-106)
[2025-09-20] MEDS: SILDENAFIL CITRATE 20 MG TAB PO SCH (08:00)
--- NOTE | 2025-09-20 11:30 | DVHPN2 ---
Progress Note Date Seen: Sep 20, 2025 Has the PT tested + for MRSA If YES, has PT been informed?: No Medical Necessity Reason Pt with a Central, PICC or Fol: Yes The following are medically ne: Meng Catheter Reason for meng catheter: Strict I&O Subjective Patient reports: No new complaints Other Systems: Patient seen and examined by myself today in follow-up Objective vital signs Vital Sign Date Time Temp Pulse Resp B/P (MAP) Pulse Ox O2 Delivery O2 Flow Rate FiO2 09/20/25 11:20 94 17 94 09/20/25 11:20 Nasal Cannula* 3 32 09/20/25 09:00 97.8 147/86 (106) 97.8 Total Intake and Output 09/19/25 09/19/25 09/20/25 15:00 23:00 07:00 Intake Total 50 ml 0 ml 0 ml Balance 50 ml 0 ml 0 ml medications Current Medications Medications Dose Ordered Sig/Adri Route Start Time Stop Time Status Last Admin Dose Admin Multivit/Ca Carb/ B Cmplx/FA/Prenat 1 tab DAILY PO 08/21/25 10:00 09/20/25 10:24 1 TAB Diagnostic Test (Pha) 1 strip ACHS 08/21/25 07:00 09/20/25 11:08 1 STRIP Insulin Human Regular ACHS SC 08/21/25 07:00 09/16/25 17:58 2 UNITS Dextrose 50 ml UD PRN IV 08/20/25 23:15 Sodium Chloride 10 ml Q8HR IV 08/21/25 06:00 09/20/25 05:58 10 ML Docusate Sodium 100 mg BIDPRN PRN PO 08/20/25 23:15 Acetaminophen 650 mg Q6HP PRN PO 08/20/25 23:15 09/17/25 23:20 650 MG Nitroglycerin 0.4 mg Q5MINP PRN SL 08/20/25 23:15 Hold Pantoprazole Sodium 40 mg DAILY IV 08/22/25 10:00 09/20/25 10:09 40 MG Levalbuterol HCl 1.25 mg Q6HR NEB 09/09/25 12:00 09/20/25 11:20 1.25 MG Acetylcysteine 100 mg Q6HR NEB 09/09/25 12:00 09/20/25 11:20 100 MG Ipratropium [place] 0.5 mg Q6HR NEB 09/09/25 12:00 09/20/25 11:20 0.5 MG Heparin Sodium (Porcine) 5,000 units Q12HR SC 09/12/25 22:00 09/19/25 21:52 5,000 UNITS Albumin Human 100 ml @ 100 mls/hr PRN PRN IV 09/13/25 07:00 09/15/25 11:23 100 MLS/HR Ceftriaxone Sodium 50 ml @ 100 mls/hr DAILY@09 IV 09/16/25 09:00 09/20/25 08:19 100 MLS/HR Bumetanide 2 mg DAILY IV 09/16/25 14:00 09/19/25 09:47 2 MG Ondansetron HCl 4 mg Q4HPRN PRN IV 09/18/25 05:45 Amino Acid Protein 30 ml Q6HR PO 09/20/25 00:00 Sildenafil Citrate 20 mg TID@08,14,20 PO 09/20/25 08:00 Examination: LUNGS:Normal, CVS:Normal, MSK:Normal laboratory and microbiology Laboratory Tests 09/20/25 05:45 Test 09/20/25 05:45 Range/Units Serum Glucose 73 L 74-106 mg/dL Microbiology Date/Time Source Procedure Growth Status 09/17/25 09:41 Blood Blood Culture - Preliminary NO GROWTH AFTER 72 HOURS OF INCUBATION. Resulted 08/22/25 12:52 Urine - [place] Urine Culture - Final Complete 08/22/25 08:06 Nose MRSA Screen - Final Complete Problem List/Assessment/Plan Problem List/Assessment/Plan ESRD requiring intermittent HD Acute hypoxic respiratory failure, extubated Community-acquired pneumonia Diabetes mellitus type 2 Nephrotic syndrome secondary to underlying diabetic nephropathy Hyperkalemia Hypernatremia due to insensible water loss Recommendations Continue with UF 2-3 L as tolerated Epogen 10,000 subQ 3 times weekly Hyperkalemia resolved Hypernatremia appropriately resolved Strict I&Os kidney ultrasound reported within normal limit IV antibiotics Discontinue amlodipine due to low blood pressure Avoid nephrotoxic medications We will continue to follow Plan discussed with: Patient Dietary Evaluation Review Comments: Nutrition Recommendation: 1) EN Nepro Carbsteady @ 30ml/hr x 24hr (goal) along with Pro-stat 1 pk BID. Water flush 50ml Q6H if allowed, adjust PRN. TF at goal volume along with propofol & Pro-stat provide 1777 kcal (100%), 89 gm protein (83%), and 723 ml free water(including flush). 2) TPN if NPO >7 days 3) Monitor NPO status, lab values, weight trend, and I/O Expected Outcomes/Goals: Intake to meet >75% estimated needs Lab values to improve FU 2-3 days JEANNE WHITE MD Sep 20, 2025 11:30
[2025-09-20] MEDS: ONDANSETRON HCL 4 MG/2 ML VIAL IV PRN (14:34)
--- NOTE | 2025-09-20 17:35 | DVHPNRES ---
Progress Note Date Seen: Sep 20, 2025 Resident Creating Document: URIAH NOBLE RESIDENT Has the PT tested + for MRSA If YES, has PT been informed?: No Medical Necessity Reason Pt with a Central, PICC or Fol: Yes The following are medically ne: Meng Catheter Reason for meng catheter: Strict I&O Subjective Review of Systems Ms. Marin is a 75-year-old female with prior medical history of HFpEF, COPD with home oxygen, gout, anxiety, type 2 diabetes mellitus, hyperlipidemia, hypertension, and PAD, who bas brought to the [facility] by EMS with chief complaint of shortness of breath and back and midsternal non-radiating chest pain. Daughter reported progressively worsening shortness of breath for the last 2 weeks associated with general malaise and orthopnea, describing very wet coughing sounds when her mother lays flat. She states that her mother began complaining of worsening shortness of breath associated with non-radiating midsternal chest pain which prompted her to call EMS. Per record, on seen she was saturating 74%, she was placed on CPAP with inspiration increasing to 88% on route to the emergency department. On evaluation in the ED, patient was afebrile, slightly hypertensive, and tachypneic, saturating 81% which she was placed on BiPAP. Initial labs significant for leukocytosis of 11.3, with elevated hematocrit, and thrombocytopenia, hyperkalemia, creatinine 4.09, BUN 46, and ABG significant for respiratory acidosis, troponins are negative, BNP 2515.41. Serology was positive for influenza A and B. Chest x-ray showed moderate to severe pulmonary edema. Patient further deteriorated requiring intubation for respiratory distress. She was started on IV Lasix, IV methylprednisolone, hyperkalemia protocol, bicarbonate drip, and nitroglycerin drip. Prior Medical history: CHF, COPD, gout, anxiety, type 2 diabetes mellitus, hyperlipidemia, hypertension, PAD, pulmonary hypertension Previous surgical history: Left leg stenting for PAD Allergies: Denies Social history: Daughter reports the patient smokes cigarettes with cessation approximately 20 years ago Home medications: Allopurinol, insulin, gabapentin, simvastatin, tadalafil 07/20/2025: Patient was seen at bedside. She passed swallow evaluation over the weekend; patient appears more confused in the morning as the day progresses patient is more alert and oriented. Blood culture positive for coagulase negative Staphylococcus epidermidis, likely due to contamination. Discontinued hydralazine in context of normal blood pressure. Discontinued vancomycin in context of absence of a left shift. We will consult social secretary for placement in SNF, patient will undergo tunneled catheter placement with Radiology, interventional Radiology consulted. Physical therapy on board. 07/21/2025: Patient was seen at bedside. She has no new complaints today. Consulted social secretary for placement in SNF for physical therapy. Ordered another set of blood cultures, pending placement of tunneled hemodialysis catheter. Discontinued NG tube. Objective vital signs Vital Sign Date Time Temp Pulse Resp B/P (MAP) Pulse Ox O2 Delivery O2 Flow Rate FiO2 09/20/25 13:00 98.2 101 16 158/68 (98) 96 98.2 09/20/25 11:20 Nasal Cannula* 3 32 Total Intake and Output 09/19/25 09/19/25 09/20/25 15:00 23:00 07:00 Intake Total 50 ml 0 ml 0 ml Balance 50 ml 0 ml 0 ml medications Current Medications Medications Dose Ordered Sig/Adri Route Start Time Stop Time Status Last Admin Dose Admin Nitroglycerin 0.4 mg Q5MINP PRN SL 08/20/25 23:15 Hold Pantoprazole Sodium 40 mg DAILY IV 08/22/25 10:00 09/20/25 10:09 40 MG Levalbuterol HCl 1.25 mg Q6HR NEB 09/09/25 12:00 09/20/25 11:20 1.25 MG Acetylcysteine 100 mg Q6HR NEB 09/09/25 12:00 09/20/25 11:20 100 MG Ipratropium [place] 0.5 mg Q6HR NEB 09/09/25 12:00 09/20/25 11:20 0.5 MG Heparin Sodium (Porcine) 5,000 units Q12HR SC 09/12/25 22:00 09/19/25 21:52 5,000 UNITS Albumin Human 100 ml @ 100 mls/hr PRN PRN IV 09/13/25 07:00 09/15/25 11:23 100 MLS/HR Ceftriaxone Sodium 50 ml @ 100 mls/hr DAILY@09 IV 09/16/25 09:00 09/20/25 08:19 100 MLS/HR Bumetanide 2 mg DAILY IV 09/16/25 14:00 09/19/25 09:47 2 MG Ondansetron HCl 4 mg Q4HPRN PRN IV 09/18/25 05:45 09/20/25 14:34 4 MG Amino Acid Protein 30 ml Q6HR PO 09/20/25 00:00 Sildenafil Citrate 20 mg TID@08,14,20 PO 09/20/25 08:00 Examination General: Patient was A&O x4. Following commands. HEENT: Dry mucous membranes. Nystagmus POA Respiratory/pulmonary: Normal breath sounds heard Cardiovascular: Normal heart sounds S1 and S2 with no associated murmurs. Abdomen: Abdomen nondistended, normal bowel sounds. Extremities: Dry, crusted planter surface of bilateral feet. SCDs present bilaterally. Sacrum: Healing sacral flap (POA) from previous sacral ulcer (POA) laboratory and microbiology Laboratory Tests 09/20/25 05:45 Test 09/20/25 05:45 Range/Units Serum Glucose 73 L 74-106 mg/dL Microbiology Date/Time Source Procedure Growth Status 09/17/25 09:41 Blood Blood Culture - Preliminary NO GROWTH AFTER 72 HOURS OF INCUBATION. Resulted 08/22/25 12:52 Urine - [place] Urine Culture - Final Complete 08/22/25 08:06 Nose MRSA Screen - Final Complete Problem List/Assessment/Plan Problem List/Assessment/Plan Neurology Sedation/analgesia Versed Discontinued Propofol: Discontinued Fentanyl discontinued # Metabolic encephalopathy due to Uremia/ Sepsis with anxiety/agitation/ delirium POA Creatinine continues to trend up. IR deferred tunneled catheter placement for now. Temporary hemodialysis catheter inserted Ordered ABG in context of no improvement in confusion. ABG resulted WNL Ordered noncontrast CT head. Underwent hemodialysis today PT on board; social service consulted for placement in SNF for physical therapy HEENT # Night eye nystagmus Per daughter, present since Cardiovascular # Acute on chronic HFpEF (improving) # Pulmonary Edema BNP normalized; OA Chest xray 08/20/2025: Moderate to severe pulmonary edema Chest xray 08/21/2025: Cardiomegaly with pulmonary venous congestion and edema Echocardiogram 01/14/2022: EF > 60%, Limited echo windows, mild TR, MR Echocardiogram 10/22/2024: Technically good study sinus rhythm. Concentric LVH with left atrial enlargement. Mild aortic sclerosis. Mild thickening of the anterior and posterior mitral leaflets. Valves appear to be structurally normal. Left ventricular function is preserved at 60% with normal RV function. Cardiology: Pending echo, considered R/LHC if inconclusive , discontinue bumex drip Per nephrology: Trial of bumex + albumin and D5W 75 cc/hour. Bumex drip discontinued by cardiology. D5W has been discontinued due to resolution of hypernatremia Lasix discontinued Repeat CXR from 09/13/2025 shows pulmonary vascular congestion reduced in comparison to previous X-rays Chest x-ray from 09/15/2025 shows stable pulmonary vascular congestion and small pleural effusions Continue Bumex 2 mg daily per Nephrology (see below) #Hypertension Continue Amlodipine 10 mg NG daily, Hydralazine 50 mg q8 #CAD Coronary angiogram done on 08/30/2025: Left main, LAD and circumflex are patent, RCA patent, EF is 50-55% #Severe pulmonary hypertension R/L heart catheterization 08/30/2025: RA pressure 18 mmHg, RV pressure 62/16 mmHg, pulmonary artery pressure 66/18 mmHg, capillary wedge pressure: 17 mmHg Per cardiology: Sildenafil 20mg NG TID, testing testing 40 but this was lowered Respiratory Ventilator Intubated (08/21/2025) Extubated (09/07/2025) # Acute hypercapnic respiratory failure secondary to pulmonary edema s/p Extubation # Acute hypoxic respiratory failure # Respiratory acidosis (resolving) Discontinued oxygen supplementation with Oxymizer Med neb treatment with Ipratropium, levalbuterol Mucomyst 100 mg q 8 hours PT evaluation requested Continue oxygen supplementation, currently on 2 L oxygen. Continue tapering as tolerated. # Acute COPD exacerbation Methylprednisolone 40 mg IV, discontinued Medneb treatment with Ipratropium medneb, Albuterol medneb Ceftriaxone 1 g IV daily (discontinued) # Community acquired pneumonia due to Gram-positive/Gram-negative pneumonia/ Influenza A and B POA Tamiflu 30 mg BID suspension, discontinued Discontinued Zosyn, Discontinued vancomycin. Continue IV Ceftriaxone Gastrointestinal NG tube reinserted (09/13/2025); failed swallow evaluation # Peptic ulcer prophylaxis Pantoprazole 40 mg IV daily # Constipation Lactulose 15 mL Genitourinary Replace Meng catheter (09/12/25) Replace Meng catheter 09/18/2025 # Possible Complicated UTI, resolving UA positive for UTI Ceftriaxone 1 g IV daily, discontinued Previously switched cefepime to vancomycin and Zosyn Nephrology # COLE on CKD likely hemodynamically mediated/ VMN # ESRD requiring intermittent HD Supportive management with IV fluids given Nephrology on board, recommended hemodialysis Patient initially had dialysis catheter in the right femoral region, removed. Interventional radiology on board, tunneled catheter placement deferred till confirmation with negative blood cultures. Kidney ultrasound shows no acute abnormality Nephrology on board, recommended hemodialysis, new Frank in the interim. Continue tube feeding, monitor fluid balances, strict I&Os On Hemodialysis On Bumex 2 mg IV (started on 09/16/2025) per nephrology Blood cultures ordered. Radiology consulted for tunneled hemodialysis catheter Hemodialysis today # Hyperkalemia, resolved Per nephrology: trial of forced diuresis to enhance potassium excretion, serial chemistry panels, IV bicarbonate infusion, and avoidance of IV contrast if able. # Hypokalemia Supplemented # Acute metabolic acidosis # Nephrotic syndrome secondary to underlying diabetic nephropathy, possible # Hypernatremia due to insensible water loss D5W, discontinued Infectious disease # Sepsis POA d/t below # Influenza A and B Pneumonia POA Serology positive for Influenza A & B Tamiflu 30 mg BID suspension, discontinued # Possible Complicated UTI, present on admission Ceftriaxone 1 g IV daily, discontinued Discontinued cefepime; discontinue vancomycin. Discontinued Zosyn. Continue IV Rocephin. Hem/oncology # Thrombocytopenia, resolved # Microcytic, hypochromic anemia # Heparin induced thrombocytopenia type 1, possible Intermediate possibility of HIT on 4Ts score Platelet count trending down, consider discontinuing heparin if platelet count continues to trend down; absolute contraindication<50 K. Can also consider discontinuing vancomycin Monitor CBC # Eosinophilia Switched Zosyn to IV Rocephin. Eosinophil continues to trend down, can consider discontinuing vancomycin tomorrow if the eosinophil count remains high. Monitor CBC Endocrine # Type 2 diabetes mellitus Mild Sliding scale Monitor blood glucose # Class 1 Obesity BMI 30 DVT prophylaxis: Heparin 5000 U BID PUD prophylaxis: Pantoprazole 40 mg IV daily Lines: - L femoral Central line 08/20/2025 - discontinued on 08/29/2025 - L internal jugular central line 08/29/2025 09/08/2025 - Meng catheter 08/20/2025 - ET tube: 08/21/2025 (extubated 09/07/2025) - Femoral Frank catheter: 08/30/2025- 09/10/2025 - Mid line: 09/08/2025 - Frank catheter 09/12/25 Nutrition: Nepro discontinued Continue p.o. nutrition; renal pureed diet Goals of care discussed at bedside for more than 47 minutes. Goals of care discussed with nurses, Daughter, Susy on bedside. Plan discussed with Dr. Lopez Plan discussed with: Patient, Daughter, Other (nurses) My Orders My Orders Orders - URIAH NOBLE RESIDENT Procedure Category Date Status Time Complete Blood Count LAB 09/21/25 Verified 04:00 Basic Metabolic Panel LAB 09/21/25 Verified 04:00 Communication Order ORDERS 09/20/25 Transmitted 16:47 Mechanical Soft Diet DIET 09/20/25 Transmitted Dinner Blood Culture MARIMAR 09/20/25 Logged 16:49 Dietary Evaluation Review Comments: Nutrition Recommendation: 1) EN Nepro Carbsteady @ 30ml/hr x 24hr (goal) along with Pro-stat 1 pk BID. Water flush 50ml Q6H if allowed, adjust PRN. TF at goal volume along with propofol & Pro-stat provide 1777 kcal (100%), 89 gm protein (83%), and 723 ml free water(including flush). 2) TPN if NPO >7 days 3) Monitor NPO status, lab values, weight trend, and I/O Expected Outcomes/Goals: Intake to meet >75% estimated needs Lab values to improve FU 2-3 days Visit Coding STANDARD RES Billing Provider: PATRICIA LOPEZ MD Date of Service if different f: Sep 20, 2025 Common Visit Codes: [id number] INP/OBS CARE(HIGH) URIAH NOBLE RESIDENT Sep 20, 2025 17:35 PATRICIA LOPEZ MD Sep 21, 2025 14:01
[2025-09-20] MEDS: EPOETIN ALFA-EPBX 4,000 UNIT/ML VIAL SC ONE (20:50)
[2025-09-21] VITALS (15 sets, daily range): BP systolic 114–146; BP diastolic 55–72; PULSE 79–98; RESP 16–20; TEMP 97.6–98.9; O2SAT 82–100
[2025-09-21 06:24] LABS: Hemoglobin 9.4 g/dL (12.2-16.2); Nucleated Red Blood Cells % 0.0 %
[2025-09-21 06:25] LABS: Hematocrit 32.5 % (36.0-46.0); Mean Corpuscular Hemoglobin 19.1 pg (28.0-32.0); Mean Corpuscular Volume 66.2 fL (80.0-100.0)
[2025-09-21 06:32] LABS: Anion Gap 11 (5-15); Carbon Dioxide 28 mmol/L (20-31); Chloride 101 mmol/L (98-107); Potassium 4.1 mmol/L (3.5-5.1); Sodium 140 mmol/L (136-145)
[2025-09-21 06:33] LABS: Calcium 8.9 mg/dL (8.7-10.4)
[2025-09-21 06:38] LABS: BUN/Creatinine Ratio 4.9 (10.0-20.0)
[2025-09-21 06:44] LABS: Blood Urea Nitrogen 30 mg/dL (9-23); Glucose 74 mg/dL (74-106)
[2025-09-21 07:05] LABS: Anisocytosis Moderate
[2025-09-21 07:06] LABS: Ovalocytes FEW
[2025-09-21 09:42] LABS: Nucleated Red Blood Cells % 0.0 %
[2025-09-21 09:43] LABS: Anisocytosis Moderate; Total Cells Counted 100.0 (100)
[2025-09-21 09:44] LABS: Ovalocytes FEW
--- NOTE | 2025-09-21 11:39 | DVHPN2 ---
Progress Note Date Seen: Sep 21, 2025 Has the PT tested + for MRSA If YES, has PT been informed?: No Medical Necessity Reason Pt with a Central, PICC or Fol: Yes The following are medically ne: Meng Catheter Reason for meng catheter: Strict I&O Subjective Review of Systems: RESPIRATORY:Abnormal Other Systems: Patient seen and examined by myself today in follow-up Objective vital signs Vital Sign Date Time Temp Pulse Resp B/P (MAP) Pulse Ox O2 Delivery O2 Flow Rate FiO2 09/21/25 09:41 138/63 09/21/25 09:00 98.1 84 18 96 98.1 09/21/25 07:03 Nasal Cannula* 4 36 Total Intake and Output 09/20/25 09/20/25 09/21/25 14:59 22:59 06:59 Intake Total 170 ml 150 ml 205 ml Output Total 250 ml 125 ml Balance 170 ml -100 ml 80 ml medications Current Medications Medications Dose Ordered Sig/Adri Route Start Time Stop Time Status Last Admin Dose Admin Nitroglycerin 0.4 mg Q5MINP PRN SL 08/20/25 23:15 Hold Pantoprazole Sodium 40 mg DAILY IV 08/22/25 10:00 09/21/25 09:38 40 MG Levalbuterol HCl 1.25 mg Q6HR NEB 09/09/25 12:00 09/21/25 07:04 1.25 MG Acetylcysteine 100 mg Q6HR NEB 09/09/25 12:00 09/21/25 07:03 100 MG Ipratropium [place] 0.5 mg Q6HR NEB 09/09/25 12:00 09/21/25 07:04 0.5 MG Heparin Sodium (Porcine) 5,000 units Q12HR SC 09/12/25 22:00 09/21/25 09:53 5,000 UNITS Albumin Human 100 ml @ 100 mls/hr PRN PRN IV 09/13/25 07:00 09/15/25 11:23 100 MLS/HR Ceftriaxone Sodium 50 ml @ 100 mls/hr DAILY@09 IV 09/16/25 09:00 09/21/25 09:36 100 MLS/HR Bumetanide 2 mg DAILY IV 09/16/25 14:00 09/21/25 09:41 2 MG Ondansetron HCl 4 mg Q4HPRN PRN IV 09/18/25 05:45 09/20/25 14:34 4 MG Amino Acid Protein 30 ml Q6HR PO 09/20/25 00:00 09/20/25 18:32 30 ML Sildenafil Citrate 20 mg TID@08,14,20 PO 09/20/25 08:00 09/20/25 20:51 20 MG Examination: LUNGS:Abnormal, CVS:Normal, MSK:Normal laboratory and microbiology Laboratory Tests 09/21/25 05:20 Test 09/21/25 05:20 Range/Units Serum Glucose 74 74-106 mg/dL Microbiology Date/Time Source Procedure Growth Status 09/17/25 09:41 Blood Blood Culture - Preliminary NO GROWTH AFTER 72 HOURS OF INCUBATION. Resulted 08/22/25 12:52 Urine - Meng [place] Urine Culture - Final Complete 08/22/25 08:06 Nose MRSA Screen - Final Complete Problem List/Assessment/Plan Problem List/Assessment/Plan ESRD requiring intermittent HD Acute hypoxic respiratory failure, extubated Community-acquired pneumonia Diabetes mellitus type 2 Nephrotic syndrome secondary to underlying diabetic nephropathy Hyperkalemia Hypernatremia due to insensible water loss Recommendations Hemodialysis tomorrow Epogen 10,000 subQ 3 times weekly Hyperkalemia resolved Hypernatremia appropriately resolved Strict I&Os kidney ultrasound reported within normal limit IV antibiotics Discontinue amlodipine due to low blood pressure Avoid nephrotoxic medications We will continue to follow Plan discussed with: Patient My Orders My Orders Orders - JEANNE WHITE MD Procedure Category Date Status Time Hemodialysis Orders ORDERS 09/22/25 Transmitted 07:00 Dialysis Nursing [facility] 09/22/25 Transmitted Message 07:00 Heparin Sodium PHA 09/22/25 Transmitted (Porcine) 07:00 Heparin Sodium PHA 09/22/25 Transmitted (Porcine) 07:00 Sodium Chloride 0.9% PHA 09/22/25 Transmitted 07:00 Document Fluid Input [facility] 09/22/25 Transmitted And Outpu 07:00 Retacrit 10,000unit PHA 09/22/25 Transmitted Sc Xone 21:00 Dietary Evaluation Review Comments: Nutrition Recommendation: 1) EN Nepro Carbsteady @ 30ml/hr x 24hr (goal) along with Pro-stat 1 pk BID. Water flush 50ml Q6H if allowed, adjust PRN. TF at goal volume along with propofol & Pro-stat provide 1777 kcal (100%), 89 gm protein (83%), and 723 ml free water(including flush). 2) TPN if NPO >7 days 3) Monitor NPO status, lab values, weight trend, and I/O Expected Outcomes/Goals: Intake to meet >75% estimated needs Lab values to improve FU 2-3 days JEANNE WHITE MD Sep 21, 2025 11:39
[2025-09-21] MEDS: MEROPENEM 1GM IVPB 50 ML IV ONE (15:12)
--- NOTE | 2025-09-21 16:23 | DVHPNRES ---
Progress Note Date Seen: Sep 21, 2025 Resident Creating Document: URIAH NOBLE RESIDENT Has the PT tested + for MRSA If YES, has PT been informed?: No Medical Necessity Reason Pt with a Central, PICC or Fol: Yes The following are medically ne: Meng Catheter Reason for meng catheter: Strict I&O Subjective Review of Systems Ms. Marin is a 75-year-old female with prior medical history of HFpEF, COPD with home oxygen, gout, anxiety, type 2 diabetes mellitus, hyperlipidemia, hypertension, and PAD, who bas brought to the [facility] by EMS with chief complaint of shortness of breath and back and midsternal non-radiating chest pain. Daughter reported progressively worsening shortness of breath for the last 2 weeks associated with general malaise and orthopnea, describing very wet coughing sounds when her mother lays flat. She states that her mother began complaining of worsening shortness of breath associated with non-radiating midsternal chest pain which prompted her to call EMS. Per record, on seen she was saturating 74%, she was placed on CPAP with inspiration increasing to 88% on route to the emergency department. On evaluation in the ED, patient was afebrile, slightly hypertensive, and tachypneic, saturating 81% which she was placed on BiPAP. Initial labs significant for leukocytosis of 11.3, with elevated hematocrit, and thrombocytopenia, hyperkalemia, creatinine 4.09, BUN 46, and ABG significant for respiratory acidosis, troponins are negative, BNP 2515.41. Serology was positive for influenza A and B. Chest x-ray showed moderate to severe pulmonary edema. Patient further deteriorated requiring intubation for respiratory distress. She was started on IV Lasix, IV methylprednisolone, hyperkalemia protocol, bicarbonate drip, and nitroglycerin drip. Prior Medical history: CHF, COPD, gout, anxiety, type 2 diabetes mellitus, hyperlipidemia, hypertension, PAD, pulmonary hypertension Previous surgical history: Left leg stenting for PAD Allergies: Denies Social history: Daughter reports the patient smokes cigarettes with cessation approximately 20 years ago Home medications: Allopurinol, insulin, gabapentin, simvastatin, tadalafil 07/20/2025: Patient was seen at bedside. She passed swallow evaluation over the weekend; patient appears more confused in the morning as the day progresses patient is more alert and oriented. Blood culture positive for coagulase negative Staphylococcus epidermidis, likely due to contamination. Discontinued hydralazine in context of normal blood pressure. Discontinued vancomycin in context of absence of a left shift. We will consult social media coordinator for placement in SNF, patient will undergo tunneled catheter placement with Radiology, interventional Radiology consulted. Physical therapy on board. 07/21/2025: Patient was seen at bedside. She has no new complaints today. Consulted social media coordinator for placement in SNF for physical therapy. Ordered another set of blood cultures, pending placement of tunneled hemodialysis catheter. Discontinued NG tube. 07/22/2025: Patient was seen at bedside. Patient was sleepy during the interview. No significant overnight episodes. Objective vital signs Vital Sign Date Time Temp Pulse Resp B/P (MAP) Pulse Ox O2 Delivery O2 Flow Rate FiO2 09/21/25 13:00 97.9 87 20 146/71 (96) 91 97.9 09/21/25 12:12 Nasal Cannula* 3 32 Total Intake and Output 09/20/25 09/20/25 09/21/25 15:00 23:00 07:00 Intake Total 170 ml 150 ml 205 ml Output Total 250 ml 125 ml Balance 170 ml -100 ml 80 ml medications Current Medications Medications Dose Ordered Sig/Adri Route Start Time Stop Time Status Last Admin Dose Admin Nitroglycerin 0.4 mg Q5MINP PRN SL 08/20/25 23:15 Hold Levalbuterol HCl 1.25 mg Q6HR NEB 09/09/25 12:00 09/21/25 12:10 1.25 MG Acetylcysteine 100 mg Q6HR NEB 09/09/25 12:00 09/21/25 12:11 100 MG Ipratropium Oil Trough 0.5 mg Q6HR NEB 09/09/25 12:00 09/21/25 12:11 0.5 MG Heparin Sodium (Porcine) 5,000 units Q12HR SC 09/12/25 22:00 09/21/25 09:53 5,000 UNITS Albumin Human 100 ml @ 100 mls/hr PRN PRN IV 09/13/25 07:00 09/15/25 11:23 100 MLS/HR Bumetanide 2 mg DAILY IV 09/16/25 14:00 09/21/25 09:41 2 MG Ondansetron HCl 4 mg Q4HPRN PRN IV 09/18/25 05:45 09/20/25 14:34 4 MG Amino Acid Protein 30 ml Q6HR PO 09/20/25 00:00 09/20/25 18:32 30 ML Sildenafil Citrate 20 mg TID@08,14,20 PO 09/20/25 08:00 09/21/25 15:12 20 MG Meropenem 50 ml @ 17 mls/hr HS IV 09/22/25 22:00 Enteral Nutritional Formula 240 ml BIDWM PO 09/21/25 18:00 Examination General: Patient was A&O x4. Following commands. HEENT: Nystagmus POA Respiratory/pulmonary: Normal breath sounds heard Cardiovascular: Normal heart sounds S1 and S2 with no associated murmurs. Abdomen: Abdomen nondistended, normal bowel sounds. Extremities: Dry, crusted planter surface of bilateral feet. SCDs present bilaterally. Sacrum: Healing sacral flap (POA) from previous sacral ulcer laboratory and microbiology Laboratory Tests 09/21/25 05:20 Test 09/21/25 05:20 Range/Units Serum Glucose 74 74-106 mg/dL Microbiology Date/Time Source Procedure Growth Status 09/17/25 09:41 Blood Blood Culture - Preliminary NO GROWTH AFTER 72 HOURS OF INCUBATION. Resulted 08/22/25 12:52 Urine - Meng Port Urine Culture - Final Complete 08/22/25 08:06 Nose MRSA Screen - Final Complete Problem List/Assessment/Plan Problem List/Assessment/Plan Neurology Sedation/analgesia Versed Discontinued Propofol: Discontinued Fentanyl discontinued # Metabolic encephalopathy due to Uremia/ Sepsis with anxiety/agitation/ delirium POA Creatinine continues to trend up. IR deferred tunneled catheter placement for now. Temporary hemodialysis catheter inserted Ordered ABG in context of no improvement in confusion. ABG resulted WNL Ordered noncontrast CT head. Underwent hemodialysis today PT on board; social service consulted for placement in SNF for physical therapy HEENT # Night eye nystagmus Per daughter, present since Cardiovascular # Acute on chronic HFpEF (improving) # Pulmonary Edema BNP normalized; OA Chest xray 08/20/2025: Moderate to severe pulmonary edema Chest xray 08/21/2025: Cardiomegaly with pulmonary venous congestion and edema Echocardiogram 01/14/2022: EF > 60%, Limited echo windows, mild TR, MR Echocardiogram 10/22/2024: Technically good study sinus rhythm. Concentric LVH with left atrial enlargement. Mild aortic sclerosis. Mild thickening of the anterior and posterior mitral leaflets. Valves appear to be structurally normal. Left ventricular function is preserved at 60% with normal RV function. Cardiology: Pending echo, considered R/LHC if inconclusive , discontinue bumex drip Per nephrology: Trial of bumex + albumin and D5W 75 cc/hour. Bumex drip discontinued by cardiology. D5W has been discontinued due to resolution of hypernatremia Lasix discontinued Repeat CXR from 09/13/2025 shows pulmonary vascular congestion reduced in comparison to previous X-rays Chest x-ray from 09/15/2025 shows stable pulmonary vascular congestion and small pleural effusions Continue Bumex 2 mg daily per Nephrology (see below) #Hypertension Continue Amlodipine 10 mg NG daily, Hydralazine 50 mg q8 #CAD Coronary angiogram done on 08/30/2025: Left main, LAD and circumflex are patent, RCA patent, EF is 50-55% #Severe pulmonary hypertension R/L heart catheterization 08/30/2025: RA pressure 18 mmHg, RV pressure 62/16 mmHg, pulmonary artery pressure 66/18 mmHg, capillary wedge pressure: 17 mmHg Per cardiology: Sildenafil 20mg NG TID, testing testing 40 but this was lowered Respiratory Ventilator Intubated (08/21/2025) Extubated (09/07/2025) # Acute hypercapnic respiratory failure secondary to pulmonary edema s/p Extubation # Acute hypoxic respiratory failure # Respiratory acidosis (resolving) Discontinued oxygen supplementation with Oxymizer Med neb treatment with Ipratropium, levalbuterol Mucomyst 100 mg q 8 hours PT evaluation requested Continue oxygen supplementation, currently on 2 L oxygen. Continue tapering as tolerated. # Acute COPD exacerbation Methylprednisolone 40 mg IV, discontinued Medneb treatment with Ipratropium medneb, Albuterol medneb Ceftriaxone 1 g IV daily (discontinued) # Community acquired pneumonia due to Gram-positive/Gram-negative pneumonia/ Influenza A and B POA Tamiflu 30 mg BID suspension, discontinued Discontinued Zosyn, Discontinued vancomycin. Continue IV Ceftriaxone Gastrointestinal NG tube reinserted (09/13/2025); failed swallow evaluation # Peptic ulcer prophylaxis Pantoprazole 40 mg IV daily # Constipation Lactulose 15 mL Genitourinary Replace Meng catheter (09/12/25) Replace Meng catheter 09/18/2025 # Possible Complicated UTI, resolving UA positive for UTI Ceftriaxone 1 g IV daily, discontinued Previously switched cefepime to vancomycin and Zosyn Nephrology # COLE on CKD likely hemodynamically mediated/ VMN # ESRD requiring intermittent HD Supportive management with IV fluids given Nephrology on board, recommended hemodialysis Patient initially had dialysis catheter in the right femoral region, removed. Interventional radiology on board, tunneled catheter placement deferred till confirmation with negative blood cultures. Kidney ultrasound shows no acute abnormality Nephrology on board, recommended hemodialysis, richy Marie in the interim. Continue tube feeding, monitor fluid balances, strict I&Os On Hemodialysis On Bumex 2 mg IV (started on 09/16/2025) per nephrology Blood cultures pending; Radiology consulted for tunneled hemodialysis catheter # Hyperkalemia, resolved Per nephrology: trial of forced diuresis to enhance potassium excretion, serial chemistry panels, IV bicarbonate infusion, and avoidance of IV contrast if able. # Hypokalemia Supplemented # Acute metabolic acidosis # Nephrotic syndrome secondary to underlying diabetic nephropathy, possible # Hypernatremia due to insensible water loss D5W, discontinued Infectious disease # Sepsis POA d/t below # Influenza A and B Pneumonia POA Serology positive for Influenza A & B Tamiflu 30 mg BID suspension, discontinued # Possible Complicated UTI, present on admission Ceftriaxone 1 g IV daily, discontinued Discontinued cefepime; discontinue vancomycin. Discontinued Zosyn. Discontinued IV Rocephin. Ordered urine analysis, repeat urine culture Started on IV meropenem Hem/oncology # Thrombocytopenia, resolved # Microcytic, hypochromic anemia # Heparin induced thrombocytopenia type 1, possible Intermediate possibility of HIT on 4Ts score Monitor CBC # Eosinophilia Switched Zosyn to IV Rocephin. Eosinophil continues to trend down. Monitor CBC Endocrine # Type 2 diabetes mellitus Mild Sliding scale Monitor blood glucose # Class 1 Obesity BMI 30 DVT prophylaxis: Heparin 5000 U BID PUD prophylaxis: Pantoprazole 40 mg IV daily Lines: - L femoral Central line 08/20/2025 - discontinued on 08/29/2025 - L internal jugular central line 08/29/2025 09/08/2025 - Meng catheter 08/20/2025 - ET tube: 08/21/2025 (extubated 09/07/2025) - Femoral Frank catheter: 08/30/2025- 09/10/2025 - Mid line: 09/08/2025 - Frank catheter 09/12/25 Nutrition: Nepro discontinued Continue p.o. nutrition; renal pureed diet PO Nepro b.i.d. Goals of care discussed at bedside for more than 49 minutes. Goals of care discussed with nurses, Daughter, Susy on bedside. Plan discussed with Dr. Lopez Plan discussed with: Patient, Daughter, Other (nurses) My Orders My Orders Orders - URIAH NOBLE RESIDENT Procedure Category Date Status Time Communication Order ORDERS 09/20/25 Transmitted 16:47 Mechanical Soft Diet DIET 09/20/25 Transmitted Dinner Blood Culture MARIMAR 09/20/25 In Process 16:49 Urinalysis LAB 09/21/25 Logged 10:30 Basic Metabolic Panel LAB 09/22/25 Verified 04:00 Complete Blood Count LAB 09/22/25 Verified 04:00 Urine Bacterial MARIMAR 09/21/25 Logged Culture 14:36 Meropenem 500mg Ivpb PHA 09/22/25 In Process (Merrem 500mg/50ml 22:00 Nutritional PHA 09/21/25 In Process Supplements (Nepro 18:00 Communication Order ORDERS 09/21/25 Transmitted 14:36 Dietary Evaluation Review Comments: Nutrition Recommendation: 1) EN Nepro Carbsteady @ 30ml/hr x 24hr (goal) along with Pro-stat 1 pk BID. Water flush 50ml Q6H if allowed, adjust PRN. TF at goal volume along with propofol & Pro-stat provide 1777 kcal (100%), 89 gm protein (83%), and 723 ml free water(including flush). 2) TPN if NPO >7 days 3) Monitor NPO status, lab values, weight trend, and I/O Expected Outcomes/Goals: Intake to meet >75% estimated needs Lab values to improve FU 2-3 days Visit Coding STANDARD RES Billing Provider: PATRICIA LOPEZ MD Date of Service if different f: Sep 21, 2025 Common Visit Codes: 72792-[id number] INP/OBS CARE(HIGH) URIAH NOBLE RESIDENT Sep 21, 2025 16:23 PATRICIA LOPEZ MD Sep 25, 2025 11:25
[2025-09-21] MEDS: Nepro With Carbsteady ButterPecan 8oz Carton PO SCH (18:00)
[2025-09-22] VITALS (18 sets, daily range): BP systolic 101–161; BP diastolic 19–86; PULSE 65–98; RESP 16–20; TEMP 97.9–98.7; O2SAT 90–100
[2025-09-22 06:11] LABS: Hematocrit 33.2 % (36.0-46.0); Nucleated Red Blood Cells % 0.0 %
[2025-09-22 06:14] LABS: Hemoglobin 9.6 g/dL (12.2-16.2); Mean Corpuscular Hemoglobin 19.2 pg (28.0-32.0); Mean Corpuscular Volume 66.1 fL (80.0-100.0)
[2025-09-22 06:23] LABS: Anion Gap 13 (5-15); Carbon Dioxide 27 mmol/L (20-31); Chloride 99 mmol/L (98-107); Potassium 3.6 mmol/L (3.5-5.1); Sodium 139 mmol/L (136-145)
[2025-09-22 06:24] LABS: Calcium 9.0 mg/dL (8.7-10.4)
[2025-09-22 06:29] LABS: BUN/Creatinine Ratio 6.4 (10.0-20.0); Glucose 81 mg/dL (74-106)
[2025-09-22 06:31] LABS: Blood Urea Nitrogen 41 mg/dL (9-23)
[2025-09-22 06:52] LABS: Anisocytosis Slight; Ovalocytes FEW
[2025-09-22] MEDS: SODIUM CHL 0.9% 1000 ML BAG XX ONE (07:00)
--- NOTE | 2025-09-22 11:14 | DVHPN2 ---
Progress Note Date Seen: Sep 22, 2025 Has the PT tested + for MRSA If YES, has PT been informed?: No Medical Necessity Reason Pt with a Central, PICC or Fol: Yes The following are medically ne: Meng Catheter Reason for meng catheter: Strict I&O Subjective Patient reports: No new complaints Other Systems: Patient seen and examined by myself today in follow-up Objective vital signs Vital Sign Date Time Temp Pulse Resp B/P (MAP) Pulse Ox O2 Delivery O2 Flow Rate FiO2 09/22/25 11:10 84 16 100 09/22/25 11:00 Nasal Cannula* 4 36 09/22/25 09:59 161/77 09/22/25 09:00 98.5 98.5 Total Intake and Output 09/21/25 09/21/25 09/22/25 15:00 23:00 07:00 Intake Total 50 ml 250 ml 700 ml Output Total 200 ml 275 ml Balance 50 ml 50 ml 425 ml medications Current Medications Medications Dose Ordered Sig/Adri Route Start Time Stop Time Status Last Admin Dose Admin Nitroglycerin 0.4 mg Q5MINP PRN SL 08/20/25 23:15 Hold Levalbuterol HCl 1.25 mg Q6HR NEB 09/09/25 12:00 09/22/25 11:00 1.25 MG Acetylcysteine 100 mg Q6HR NEB 09/09/25 12:00 09/22/25 11:00 100 MG Ipratropium [place] 0.5 mg Q6HR NEB 09/09/25 12:00 09/22/25 11:00 0.5 MG Heparin Sodium (Porcine) 5,000 units Q12HR SC 09/12/25 22:00 09/22/25 10:01 5,000 UNITS Albumin Human 100 ml @ 100 mls/hr PRN PRN IV 09/13/25 07:00 09/15/25 11:23 100 MLS/HR Bumetanide 2 mg DAILY IV 09/16/25 14:00 09/22/25 09:59 2 MG Ondansetron HCl 4 mg Q4HPRN PRN IV 09/18/25 05:45 09/20/25 14:34 4 MG Amino Acid Protein 30 ml Q6HR PO 09/20/25 00:00 09/22/25 06:14 30 ML Sildenafil Citrate 20 mg TID@08,14,20 PO 09/20/25 08:00 09/22/25 09:49 20 MG Meropenem 50 ml @ 17 mls/hr HS IV 09/22/25 22:00 Enteral Nutritional Formula 240 ml BIDWM PO 09/21/25 18:00 09/22/25 08:00 240 ML Examination: LUNGS:Normal, CVS:Normal, MSK:Abnormal laboratory and microbiology Laboratory Tests 09/22/25 05:34 Test 09/22/25 05:34 Range/Units Serum Glucose 81 74-106 mg/dL Microbiology Date/Time Source Procedure Growth Status 09/20/25 17:25 Blood Blood Culture - Preliminary NO GROWTH AFTER 24 HOURS OF INCUBATION. Resulted 08/22/25 12:52 Urine - Meng Port Urine Culture - Final Complete 08/22/25 08:06 Nose MRSA Screen - Final Complete Problem List/Assessment/Plan Problem List/Assessment/Plan ESRD requiring intermittent HD Acute hypoxic respiratory failure, extubated Community-acquired pneumonia Diabetes mellitus type 2 Nephrotic syndrome secondary to underlying diabetic nephropathy Hyperkalemia Hypernatremia due to insensible water loss Recommendations Hemodialysis tomorrow Epogen 10,000 subQ 3 times weekly Hyperkalemia resolved Hypernatremia appropriately resolved Strict I&Os kidney ultrasound reported within normal limit IV antibiotics Discontinue amlodipine due to low blood pressure Avoid nephrotoxic medications We will continue to follow Plan discussed with: Patient My Orders My Orders Orders - JEANNE WHITE MD Procedure Category Date Status Time Hemodialysis Orders ORDERS 09/22/25 Transmitted 07:00 Dialysis Nursing [facility] 09/22/25 In Process Message 07:00 Document Fluid Input [facility] 09/22/25 In Process And Outpu 07:00 Epoetin Brett-Epbx [facility] 09/22/25 In Process (Retacrit) 21:00 Dietary Evaluation Review Comments: Nutrition Recommendation: 1) EN Nepro Carbsteady @ 30ml/hr x 24hr (goal) along with Pro-stat 1 pk BID. Water flush 50ml Q6H if allowed, adjust PRN. TF at goal volume along with propofol & Pro-stat provide 1777 kcal (100%), 89 gm protein (83%), and 723 ml free water(including flush). 2) TPN if NPO >7 days 3) Monitor NPO status, lab values, weight trend, and I/O Expected Outcomes/Goals: Intake to meet >75% estimated needs Lab values to improve FU 2-3 days JEANNE WHITE MD Sep 22, 2025 11:14
[2025-09-22] MEDS: LIDOCAINE 5% TOPICAL PATCH TOP ONE (15:30)
--- NOTE | 2025-09-22 15:47 | DVHPNRES ---
Progress Note Date Seen: Sep 22, 2025 Resident Creating Document: URIAH NOBLE RESIDENT Has the PT tested + for MRSA If YES, has PT been informed?: No Medical Necessity Reason Pt with a Central, PICC or Fol: Yes The following are medically ne: Meng Catheter Reason for meng catheter: Strict I&O Subjective Review of Systems Ms. Marin is a 75-year-old female with prior medical history of HFpEF, COPD with home oxygen, gout, anxiety, type 2 diabetes mellitus, hyperlipidemia, hypertension, and PAD, who bas brought to the [facility] by EMS with chief complaint of shortness of breath and back and midsternal non-radiating chest pain. Daughter reported progressively worsening shortness of breath for the last 2 weeks associated with general malaise and orthopnea, describing very wet coughing sounds when her mother lays flat. She states that her mother began complaining of worsening shortness of breath associated with non-radiating midsternal chest pain which prompted her to call EMS. Per record, on seen she was saturating 74%, she was placed on CPAP with inspiration increasing to 88% on route to the emergency department. On evaluation in the ED, patient was afebrile, slightly hypertensive, and tachypneic, saturating 81% which she was placed on BiPAP. Initial labs significant for leukocytosis of 11.3, with elevated hematocrit, and thrombocytopenia, hyperkalemia, creatinine 4.09, BUN 46, and ABG significant for respiratory acidosis, troponins are negative, BNP 2515.41. Serology was positive for influenza A and B. Chest x-ray showed moderate to severe pulmonary edema. Patient further deteriorated requiring intubation for respiratory distress. She was started on IV Lasix, IV methylprednisolone, hyperkalemia protocol, bicarbonate drip, and nitroglycerin drip. Prior Medical history: CHF, COPD, gout, anxiety, type 2 diabetes mellitus, hyperlipidemia, hypertension, PAD, pulmonary hypertension Previous surgical history: Left leg stenting for PAD Allergies: Denies Social history: Daughter reports the patient smokes cigarettes with cessation approximately 20 years ago Home medications: Allopurinol, insulin, gabapentin, simvastatin, tadalafil 07/20/2025: Patient was seen at bedside. She passed swallow evaluation over the weekend; patient appears more confused in the morning as the day progresses patient is more alert and oriented. Blood culture positive for coagulase negative Staphylococcus epidermidis, likely due to contamination. Discontinued hydralazine in context of normal blood pressure. Discontinued vancomycin in context of absence of a left shift. We will consult social sciences professor for placement in SNF, patient will undergo tunneled catheter placement with Radiology, interventional Radiology consulted. Physical therapy on board. 07/21/2025: Patient was seen at bedside. She has no new complaints today. Consulted social sciences professor for placement in SNF for physical therapy. Ordered another set of blood cultures, pending placement of tunneled hemodialysis catheter. Discontinued NG tube. 07/22/2025: Patient was seen at bedside. Patient was sleepy during the interview. No significant overnight episodes. 09/22/2025: Patient was seen at bedside. She complained of back pain and generalized itching. Ordered lidocaine patch and Benadryl for symptomatic relief. Hemodialysis today. Repeat blood culture shows no growth, we will follow up with IR for tunneled Hd catheter. Objective vital signs Vital Sign Date Time Temp Pulse Resp B/P (MAP) Pulse Ox O2 Delivery O2 Flow Rate FiO2 09/22/25 13:00 98.7 87 18 153/65 (94) 96 98.7 09/22/25 11:00 Nasal Cannula* 4 36 Total Intake and Output 09/21/25 09/21/25 09/22/25 15:00 23:00 07:00 Intake Total 50 ml 250 ml 700 ml Output Total 200 ml 275 ml Balance 50 ml 50 ml 425 ml medications Current Medications Medications Dose Ordered Sig/Adri Route Start Time Stop Time Status Last Admin Dose Admin Nitroglycerin 0.4 mg Q5MINP PRN SL 08/20/25 23:15 Hold Levalbuterol HCl 1.25 mg Q6HR NEB 09/09/25 12:00 09/22/25 11:00 1.25 MG Acetylcysteine 100 mg Q6HR NEB 09/09/25 12:00 09/22/25 11:00 100 MG Ipratropium [place] 0.5 mg Q6HR NEB 09/09/25 12:00 09/22/25 11:00 0.5 MG Heparin Sodium (Porcine) 5,000 units Q12HR SC 09/12/25 22:00 09/22/25 10:01 5,000 UNITS Albumin Human 100 ml @ 100 mls/hr PRN PRN IV 09/13/25 07:00 09/15/25 11:23 100 MLS/HR Bumetanide 2 mg DAILY IV 09/16/25 14:00 09/22/25 09:59 2 MG Ondansetron HCl 4 mg Q4HPRN PRN IV 09/18/25 05:45 09/20/25 14:34 4 MG Amino Acid Protein 30 ml Q6HR PO 09/20/25 00:00 09/22/25 11:37 30 ML Sildenafil Citrate 20 mg TID@08,14,20 PO 09/20/25 08:00 09/22/25 09:49 20 MG Meropenem 50 ml @ 17 mls/hr HS IV 09/22/25 22:00 Enteral Nutritional Formula 240 ml BIDWM PO 09/21/25 18:00 09/22/25 08:00 240 ML Lidocaine 1 patch DAILY TOP 09/23/25 10:00 UNV Examination General: Patient was A&O x4. Following commands. HEENT: Nystagmus POA Respiratory/pulmonary: Normal breath sounds heard Cardiovascular: Normal heart sounds S1 and S2 with no associated murmurs. Abdomen: Abdomen nondistended, normal bowel sounds. Extremities: Dry, crusted planter surface of bilateral feet. SCDs present bilaterally. Sacrum: Healing sacral flap (POA) from previous sacral ulcer laboratory and microbiology Laboratory Tests 09/22/25 05:34 Test 09/22/25 05:34 Range/Units Serum Glucose 81 74-106 mg/dL Microbiology Date/Time Source Procedure Growth Status 09/20/25 17:25 Blood Blood Culture - Preliminary NO GROWTH AFTER 24 HOURS OF INCUBATION. Resulted 08/22/25 12:52 Urine - [place] Urine Culture - Final Complete 08/22/25 08:06 Nose MRSA Screen - Final Complete Problem List/Assessment/Plan Problem List/Assessment/Plan Neurology Sedation/analgesia Versed Discontinued Propofol: Discontinued Fentanyl discontinued # Metabolic encephalopathy due to Uremia/ Sepsis with anxiety/agitation/ delirium POA Creatinine continues to trend up. IR deferred tunneled catheter placement for now. Temporary hemodialysis catheter inserted Ordered ABG in context of no improvement in confusion. ABG resulted WNL Ordered noncontrast CT head. Underwent hemodialysis today PT on board; social service consulted for placement in SNF for physical therapy HEENT # Night eye nystagmus Per daughter, present since Cardiovascular # Acute on chronic HFpEF (improving) # Pulmonary Edema BNP normalized; OA Chest xray 08/20/2025: Moderate to severe pulmonary edema Chest xray 08/21/2025: Cardiomegaly with pulmonary venous congestion and edema Echocardiogram 01/14/2022: EF > 60%, Limited echo windows, mild TR, MR Echocardiogram 10/22/2024: Technically good study sinus rhythm. Concentric LVH with left atrial enlargement. Mild aortic sclerosis. Mild thickening of the anterior and posterior mitral leaflets. Valves appear to be structurally normal. Left ventricular function is preserved at 60% with normal RV function. Cardiology: Pending echo, considered R/LHC if inconclusive , discontinue bumex drip Per nephrology: Trial of bumex + albumin and D5W 75 cc/hour. Bumex drip discontinued by cardiology. D5W has been discontinued due to resolution of hypernatremia Lasix discontinued Repeat CXR from 09/13/2025 shows pulmonary vascular congestion reduced in comparison to previous X-rays Chest x-ray from 09/15/2025 shows stable pulmonary vascular congestion and small pleural effusions Continue Bumex 2 mg daily per Nephrology (see below) #Hypertension Continue Amlodipine 10 mg NG daily, Hydralazine 50 mg q8 #CAD Coronary angiogram done on 08/30/2025: Left main, LAD and circumflex are patent, RCA patent, EF is 50-55% #Severe pulmonary hypertension R/L heart catheterization 08/30/2025: RA pressure 18 mmHg, RV pressure 62/16 mmHg, pulmonary artery pressure 66/18 mmHg, capillary wedge pressure: 17 mmHg Per cardiology: Sildenafil 20mg NG TID, testing testing 40 but this was lowered Respiratory Ventilator Intubated (08/21/2025) Extubated (09/07/2025) # Acute hypercapnic respiratory failure secondary to pulmonary edema s/p Extubation # Acute hypoxic respiratory failure # Respiratory acidosis (resolving) Discontinued oxygen supplementation with Oxymizer Med neb treatment with Ipratropium, levalbuterol Mucomyst 100 mg q 8 hours PT evaluation requested Continue oxygen supplementation, currently on 5 L oxygen. Continue tapering as tolerated. # Acute COPD exacerbation Methylprednisolone 40 mg IV, discontinued Medneb treatment with Ipratropium medneb, Albuterol medneb Ceftriaxone 1 g IV daily (discontinued) # Community acquired pneumonia due to Gram-positive/Gram-negative pneumonia/ Influenza A and B POA Tamiflu 30 mg BID suspension, discontinued Discontinued Zosyn, Discontinued vancomycin. Continue IV Ceftriaxone Gastrointestinal NG tube reinserted (09/13/2025); failed swallow evaluation # Peptic ulcer prophylaxis Pantoprazole 40 mg IV daily # Constipation Lactulose 15 mL Genitourinary Replace Meng catheter (09/12/25) Replace Meng catheter 09/18/2025 # Possible Complicated UTI, resolving UA positive for UTI Ceftriaxone 1 g IV daily, discontinued Previously switched cefepime to vancomycin and Zosyn Nephrology # COLE on CKD likely hemodynamically mediated/ VMN # ESRD requiring intermittent HD Supportive management with IV fluids given Nephrology on board, recommended hemodialysis Patient initially had dialysis catheter in the right femoral region, removed. Interventional radiology on board, tunneled catheter placement deferred till confirmation with negative blood cultures. Kidney ultrasound shows no acute abnormality Nephrology on board, recommended hemodialysis, richy Marie in the interim. Continue tube feeding, monitor fluid balances, strict I&Os On Hemodialysis On Bumex 2 mg IV (started on 09/16/2025) per nephrology Radiology consulted for tunneled hemodialysis catheter # Hyperkalemia, resolved Per nephrology: trial of forced diuresis to enhance potassium excretion, serial chemistry panels, IV bicarbonate infusion, and avoidance of IV contrast if able. # Hypokalemia Supplemented # Acute metabolic acidosis # Nephrotic syndrome secondary to underlying diabetic nephropathy, possible # Hypernatremia due to insensible water loss D5W, discontinued Infectious disease # Sepsis POA d/t below # Influenza A and B Pneumonia POA Serology positive for Influenza A & B Tamiflu 30 mg BID suspension, discontinued # Possible Complicated UTI, present on admission Ceftriaxone 1 g IV daily, discontinued Discontinued cefepime; discontinue vancomycin. Discontinued Zosyn. Discontinued IV Rocephin. Ordered urine analysis, repeat urine culture Continue IV meropenem (renally dosed) Repeat blood culture shows no growth # Bacteremia versus contamination due to Staphylococcus epidermidis Repeat blood culture shows no growth, positive results on 1 set likely due to contamination Hem/oncology # Thrombocytopenia, resolved # Microcytic, hypochromic anemia # Heparin induced thrombocytopenia type 1, possible Intermediate possibility of HIT on 4Ts score Monitor CBC # Eosinophilia Switched Zosyn to IV Rocephin. Eosinophil continues to trend down. Monitor CBC Endocrine # Type 2 diabetes mellitus Mild Sliding scale Monitor blood glucose # Class 1 Obesity BMI 30 DVT prophylaxis: Heparin 5000 U BID PUD prophylaxis: Pantoprazole 40 mg IV daily Lines: - L femoral Central line 08/20/2025 - discontinued on 08/29/2025 - L internal jugular central line 08/29/2025 09/08/2025 - Meng catheter 08/20/2025 - ET tube: 08/21/2025 (extubated 09/07/2025) - Femoral Frank catheter: 08/30/2025- 09/10/2025 - Mid line: 09/08/2025 - Frank catheter 09/12/25 Nutrition: Nepro discontinued Continue p.o. nutrition; renal mechanical soft diet PO Nepro b.i.d. Goals of care discussed at bedside for more than 45 minutes. Goals of care discussed with nurses, DaughterSusy on bedside. Plan discussed with Dr. Martell Plan discussed with: Daughter, Other (Nurses) My Orders My Orders Orders - URIAH NOBLE RESIDENT Procedure Category Date Status Time Lidocaine 5% Topical PHA 09/22/25 Logged Patch (Lidoderm 5% 15:30 Lidocaine 5% Topical PHA 09/23/25 Logged Patch (Lidoderm 5% 10:00 Diphenhydramine PHA 09/22/25 Logged Capsule (Benadryl 15:30 Dietary Evaluation Review Comments: Nutrition Recommendation: 1) EN Nepro Carbsteady @ 30ml/hr x 24hr (goal) along with Pro-stat 1 pk BID. Water flush 50ml Q6H if allowed, adjust PRN. TF at goal volume along with propofol & Pro-stat provide 1777 kcal (100%), 89 gm protein (83%), and 723 ml free water(including flush). 2) TPN if NPO >7 days 3) Monitor NPO status, lab values, weight trend, and I/O Expected Outcomes/Goals: Intake to meet >75% estimated needs Lab values to improve FU 2-3 days Visit Coding STANDARD RES Billing Provider: RAVI MARTELL MD Date of Service if different f: Sep 22, 2025 Common Visit Codes: [id number] INP/OBS CARE(HIGH) URIAH NOBLE RESIDENT Sep 22, 2025 15:47
[2025-09-22] MEDS: CATHFLO ACTIVASE (ALTEPLASE) 2 MG VIAL IV ONE (17:43)
[2025-09-22 18:41] LABS: Urine Protein, UAD 3+ (Negative); Urine WBC Clumps PRESENT /hpf (None Seen)
[2025-09-22] MEDS: EPOETIN ALFA-EPBX 10,000 UNIT/1ML VIAL SC ONE (20:20)
[2025-09-22] MEDS: MEROPENEM 500MG IVPB 50 ML IV SCH (21:47)
--- NOTE | 2025-09-22 23:40 | DVHPN2 ---
Subjective DOS: 09/22/2025 Patient seen and examined at bedside. On supplemental oxygen Overnight events reviewed. Changes from previous H/P or p: No Changes Eyes: No Pain, No Vision change, No Conjunctivae inflammation, No Eyelid inflammation, No Other, No Redness ENT: No Ear pain, No Ear discharge, No Nose pain, No Nose discharge, No Nose congestion, No Mouth pain, No Mouth swelling, No Throat pain, No Throat swelling, No Other Cardiovascular: Chest Pain Respiratory: Shortness of breath, Other Gastrointestinal: No Nausea, No Vomiting, No Abdominal Pain, No Diarrhea, No Constipation, No Melena, No Hematochezia, No Other Genitourinary: Other Musculoskeletal: other Skin: Other Objective Vitals Vital Signs Date Time Temp Pulse Resp B/P (MAP) Pulse Ox O2 Delivery O2 Flow Rate FiO2 09/22/25 18:08 68 18 100 09/22/25 17:58 Nasal Cannula* 3 32 09/22/25 16:46 98.1 145/57 (86) 98.1 Intake/Output Intake and Output 09/22/25 07:00 Intake Total 1000 ml Output Total 475 ml Balance 525 ml Intake Oral 950 ml IV Total 50 ml Output Urine Total 475 ml Exam Gen.: Patient lying in bed in no apparent distress. On supplemental oxygen. Head: Normocephalic, atraumatic. Eyes: EOMI/PERRLA. Ears: Normal hearing. Normal anatomy. Neck/trachea: Trachea midline, supple. Nose: Normal external anatomy. Mouth: Moist mucous membranes. Chest: Decreased air entry bilaterally. No wheezing or rhonchi. Cardiovascular: Positive S1, positive S2. Regular rate and rhythm. Abdomen: Positive bowel sounds in all 4 quadrants. Soft, non-tender, non- distended. : Deferred. Rectal: Deferred. Skin: Warm, dry. Intact. Extremities: 2+ radial pulses bilaterally. No lower extremity edema. Neuro: Awake, alert, oriented x3. No gross motor or sensory deficits. Cranial nerves II through XII intact. Gait not assessed. Medications Current Medications Medications Dose Ordered Sig/Adri Route Start Time Stop Time Status Last Admin Dose Admin Nitroglycerin 0.4 mg Q5MINP PRN SL 08/20/25 23:15 Hold Levalbuterol HCl 1.25 mg Q6HR NEB 09/09/25 12:00 09/22/25 22:58 1.25 MG Acetylcysteine 100 mg Q6HR NEB 09/09/25 12:00 09/22/25 22:59 100 MG Ipratropium [place] 0.5 mg Q6HR NEB 09/09/25 12:00 09/22/25 22:58 0.5 MG Heparin Sodium (Porcine) 5,000 units Q12HR SC 09/12/25 22:00 09/22/25 21:48 5,000 UNITS Albumin Human 100 ml @ 100 mls/hr PRN PRN IV 09/13/25 07:00 09/15/25 11:23 100 MLS/HR Bumetanide 2 mg DAILY IV 09/16/25 14:00 09/22/25 09:59 2 MG Ondansetron HCl 4 mg Q4HPRN PRN IV 09/18/25 05:45 09/20/25 14:34 4 MG Amino Acid Protein 30 ml Q6HR PO 09/20/25 00:00 09/22/25 17:50 30 ML Sildenafil Citrate 20 mg TID@08,14,20 PO 09/20/25 08:00 09/22/25 20:23 20 MG Meropenem 50 ml @ 17 mls/hr HS IV 09/22/25 22:00 Enteral Nutritional Formula 240 ml BIDWM PO 09/21/25 18:00 09/22/25 17:50 240 ML Lidocaine 1 patch DAILY TOP 09/23/25 10:00 Laboratory Results Laboratory Tests 09/22/25 05:34 Chemistry Test 09/22/25 05:34 Calcium Level 9.0 mg/dL (8.7-10.4) Urinalysis Test 08/22/25 11:43 08/22/25 12:52 09/22/25 16:00 Urine Hyaline Casts Mod /lpf (0 - 2) Urine Mucus Few (None Seen) Urine Protein/Creatinine Ratio 4.08 Urine Total Protein 204.4 mg/dL (1-14) H Urine Creatinine 52.93 mg/dL (30.0-125.0) Urine Sodium 114 mmol/L (40-220) Urine Color Light-brown (Yellow) Urine Clarity Turbid (Clear) H Urine pH 7.5 (5.0-9.0) Urine Specific [place] 1.018 (1.001-1.035) Urine Protein 3+ (Negative) H Urine Ketones Negative (Negative) Urine Blood 3+ /uL (Negative) H Urine Nitrite Negative (Negative) Urine Bilirubin Negative (Negative) Urine Urobilinogen Normal mg/dL (Negative) Urine Leukocyte Esterase 3+ /uL (Negative) Urine RBC 1462 /hpf (0 - 4) Urine WBC Clumps Present /hpf (None Seen) Urine Microscopic WBC 311 /HPF (0-5) H Urine Squamous Epithelial Cells None seen /hpf (<5) Urine Bacteria None seen /hpf (None Seen) Urine Glucose 2+ mg/dL (Normal) H Microbiology Microbiology Date/Time Source Procedure Growth Status 09/20/25 17:25 Blood Blood Culture - Preliminary NO GROWTH AFTER 48 HOURS OF INCUBATION. Resulted 08/22/25 12:52 Urine - [place] Urine Culture - Final Complete 08/22/25 08:06 Nose MRSA Screen - Final Complete Assessment/Plan Assessment/Plan Impression: Acute hypoxic respiratory failure Acute hypercapnic respiratory failure Dependence on supplemental oxygen Pulmonary edema Pulmonary hypertension Metabolic acidosis Acute renal failure Morbid obesity Events: Patient remains on supplemental oxygen On 4 LPM NC Taper O2 as tolerated HD per Nephrology - undergoing hemodialysis today Follow up Nephrology recs Continue antibiotics Blood cultures from 09/15/2025 show Gram-positive cocci in clusters, coagulase negative Staphylococcus Repeat blood cultures show contaminant Monitor WBC Continue bronchodilators Mucomyst Sildenafil TID for pulmonary hypertension. Femoral Frank catheter was removed - concern as cause of elevated WBC Monitor temperatures Continue to monitor platelets Continue physical therapy Diurese with Bumex IVP Maintain euvolemia Monitor renal function Monitor electrolytes, supplement as necessary Monitor urine output F/u with IR for tunneled catheter Anxiolytic PRN Labs and imaging reviewed. Rest of plan as noted below. Plan: S/p extubation on 09/07/25 On supplemental oxygen Titrate to keep O2 sats above 90%. Continue antibiotics. Continue bronchodilators Mucomyst Pressors as necessary for hemodynamic support Titrate to keep mean arterial pressure greater than 65 mmHg. Hemodialysis per Nephrology Monitor renal function Monitor electrolytes. Supplement as necessary. Monitor ins and outs. Recommend diet and lifestyle modifications for weight reduction Obesity complicates all care GI prophylaxis. DVT prophylaxis. Prognosis: Poor given patient's multiple co-morbidities. Rest of plan per hospitalist and other consultants. Thank you, Dr. Mike Zheng, for allowing me to participate in this patient's care. Further recommendations will depend on the patient's clinical course. Please do not hesitate to contact me if you have any questions or concerns. This medical document was created using an electronic medical record system with [employer] dictation system. Although these documentations are being carefully reviewed, there may still be some phonetic and typographical changes. The errors are purely typographical, due to imperfection on the software program, and do not reflect any compromise in the patient's medical care. Plan discussed with: Patient, Other (RN) Visit Coding Pulmonary Billing Provider: RAVI SABA MD Date of Service if different f: Sep 22, 2025 Common Visit Codes: [id number] INP/OBS CARE(HIGH) RAVI SABA MD Sep 22, 2025 23:40
[2025-09-23] VITALS (12 sets, daily range): BP systolic 125–151; BP diastolic 65–80; PULSE 77–97; RESP 16–20; TEMP 97.5–98.4; O2SAT 94–100
[2025-09-23] MEDS: LIDOCAINE 5% TOPICAL PATCH TOP SCH (10:00)
--- NOTE | 2025-09-23 11:35 | DVHPN2 ---
Progress Note Date Seen: Sep 23, 2025 Has the PT tested + for MRSA If YES, has PT been informed?: No Medical Necessity Reason Pt with a Central, PICC or Fol: Yes The following are medically ne: Meng Catheter Reason for meng catheter: Strict I&O Subjective Other Systems: Patient seen and examined by myself today in follow-up Objective vital signs Vital Sign Date Time Temp Pulse Resp B/P (MAP) Pulse Ox O2 Delivery O2 Flow Rate FiO2 09/23/25 09:08 144/74 09/23/25 09:00 98.2 85 16 96 98.2 09/23/25 07:05 Nasal Cannula 3.0 09/23/25 07:05 32 Total Intake and Output 09/22/25 09/22/25 09/23/25 15:00 23:00 07:00 Intake Total 950 ml 480 ml Output Total 325 ml 75 ml Balance 625 ml 405 ml medications Current Medications Medications Dose Ordered Sig/Adri Route Start Time Stop Time Status Last Admin Dose Admin Nitroglycerin 0.4 mg Q5MINP PRN SL 08/20/25 23:15 Hold Levalbuterol HCl 1.25 mg Q6HR NEB 09/09/25 12:00 09/23/25 07:05 1.25 MG Acetylcysteine 100 mg Q6HR NEB 09/09/25 12:00 09/23/25 07:05 100 MG Ipratropium [place] 0.5 mg Q6HR NEB 09/09/25 12:00 09/23/25 07:05 0.5 MG Heparin Sodium (Porcine) 5,000 units Q12HR SC 09/12/25 22:00 09/23/25 09:17 5,000 UNITS Albumin Human 100 ml @ 100 mls/hr PRN PRN IV 09/13/25 07:00 09/15/25 11:23 100 MLS/HR Bumetanide 2 mg DAILY IV 09/16/25 14:00 09/23/25 09:08 2 MG Ondansetron HCl 4 mg Q4HPRN PRN IV 09/18/25 05:45 09/20/25 14:34 4 MG Amino Acid Protein 30 ml Q6HR PO 09/20/25 00:00 09/22/25 17:50 30 ML Sildenafil Citrate 20 mg TID@08,14,20 PO 09/20/25 08:00 09/23/25 09:09 20 MG Meropenem 50 ml @ 17 mls/hr HS IV 09/22/25 22:00 Enteral Nutritional Formula 240 ml BIDWM PO 09/21/25 18:00 09/23/25 08:00 240 ML Lidocaine 1 patch DAILY TOP 09/23/25 10:00 laboratory and microbiology Laboratory Tests 09/22/25 05:34 Test 09/22/25 05:34 Range/Units Serum Glucose 81 74-106 mg/dL Microbiology Date/Time Source Procedure Growth Status 09/22/25 16:00 Voided Urine Urine Culture - Preliminary No growth Resulted 09/20/25 17:25 Blood Blood Culture - Preliminary NO GROWTH AFTER 48 HOURS OF INCUBATION. Resulted 08/22/25 08:06 Nose MRSA Screen - Final Complete Problem List/Assessment/Plan Problem List/Assessment/Plan ESRD requiring intermittent HD Acute hypoxic respiratory failure, extubated Community-acquired pneumonia Diabetes mellitus type 2 Nephrotic syndrome secondary to underlying diabetic nephropathy Hyperkalemia Hypernatremia due to insensible water loss Recommendations Hemodialysis tomorrow Epogen 10,000 subQ 3 times weekly Hyperkalemia resolved Hypernatremia appropriately resolved Strict I&Os kidney ultrasound reported within normal limit IV antibiotics Discontinue amlodipine due to low blood pressure Avoid nephrotoxic medications We will continue to follow Plan discussed with: Patient My Orders My Orders Orders - JEANNE WHITE MD Procedure Category Date Status Time Hemodialysis Orders ORDERS 09/22/25 Transmitted 07:00 Dietary Evaluation Review Comments: Nutrition Recommendation: 1) EN Nepro Carbsteady @ 30ml/hr x 24hr (goal) along with Pro-stat 1 pk BID. Water flush 50ml Q6H if allowed, adjust PRN. TF at goal volume along with propofol & Pro-stat provide 1777 kcal (100%), 89 gm protein (83%), and 723 ml free water(including flush). 2) TPN if NPO >7 days 3) Monitor NPO status, lab values, weight trend, and I/O Expected Outcomes/Goals: Intake to meet >75% estimated needs Lab values to improve FU 2-3 days JEANNE WHITE MD Sep 23, 2025 11:35
--- NOTE | 2025-09-23 13:06 | DVHPN2 ---
Progress Note - Dictate Date Seen: Sep 23, 2025 Has the PT tested + for MRSA If YES, has PT been informed?: No Medical Necessity Reason Pt with a Central, PICC or Fol: Yes The following are medically ne: Meng Catheter Reason for meng catheter: Strict I&O Subjective PT WELL KNOWN TO ME ORGANIC HEART DISEASE CAD HFrEF HTN 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 HYPERKALEMIA COPD HYPERLIPIDEMIA SIGN SX COMPLEX OF NOW WITH SOB CHEST PAIN RENAL FAILURE HYPERKALEMIA RESP FAILURE REQUIRING INTUBATION vital signs Vital Sign Date Time Temp Pulse Resp B/P (MAP) Pulse Ox O2 Delivery O2 Flow Rate FiO2 09/23/25 12:41 93 16 100 09/23/25 12:31 Nasal Cannula* 3 32 09/23/25 09:08 144/74 09/23/25 09:00 98.2 98.2 Total Intake and Output 09/22/25 09/22/25 09/23/25 15:00 23:00 07:00 Intake Total 950 ml 480 ml Output Total 325 ml 75 ml Balance 625 ml 405 ml medications Current Medications Medications Dose Ordered Sig/Adri Route Start Time Stop Time Status Last Admin Dose Admin Nitroglycerin 0.4 mg Q5MINP PRN SL 08/20/25 23:15 Hold Levalbuterol HCl 1.25 mg Q6HR NEB 09/09/25 12:00 09/23/25 12:31 1.25 MG Acetylcysteine 100 mg Q6HR NEB 09/09/25 12:00 09/23/25 12:31 100 MG Ipratropium [place] 0.5 mg Q6HR NEB 09/09/25 12:00 09/23/25 12:31 0.5 MG Heparin Sodium (Porcine) 5,000 units Q12HR SC 09/12/25 22:00 09/23/25 09:17 5,000 UNITS Albumin Human 100 ml @ 100 mls/hr PRN PRN IV 09/13/25 07:00 09/15/25 11:23 100 MLS/HR Bumetanide 2 mg DAILY IV 09/16/25 14:00 09/23/25 09:08 2 MG Ondansetron HCl 4 mg Q4HPRN PRN IV 09/18/25 05:45 09/20/25 14:34 4 MG Amino Acid Protein 30 ml Q6HR PO 09/20/25 00:00 09/22/25 17:50 30 ML Sildenafil Citrate 20 mg TID@08,14,20 PO 09/20/25 08:00 09/23/25 09:09 20 MG Meropenem 50 ml @ 17 mls/hr HS IV 09/22/25 22:00 Enteral Nutritional Formula 240 ml BIDWM PO 09/21/25 18:00 09/23/25 08:00 240 ML Lidocaine 1 patch DAILY TOP 09/23/25 10:00 laboratory and microbiology Laboratory Tests 09/22/25 05:34 Test 09/22/25 05:34 Range/Units Serum Glucose 81 74-106 mg/dL Problem List ORGANIC HEART DISEASE CAD HFrEF HTN 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 HYPERKALEMIA COPD HYPERLIPIDEMIA SIGN SX COMPLEX OF NOW WITH SOB CHEST PAIN RENAL FAILURE HYPERKALEMIA RESP FAILURE REQUIRING INTUBATION EXTUBATED MENINGIOMA NO CHANGE Assessment/Plan CORRECT HYPERKALEMIA CONSIDER ECHO IF INCONCLUSIVE CONSIDER L/RHC BNP 370 ABX DC BUMEX START IVF AT 100 CC/HR ADD LOKELMA K+ CORRECTED REPEAT BNP WILL PROCEED WITH L/RHC ON FRIDAY POSITIVE FOR INFLUENZA A AND B POSITIVE START WEANING PT CON IV FLUID L/RHC NL CORONARIES EF >50% LVEDP 17mmHg RHC RA 15-27mmHg RV 62/17 PA`66/ 18 PCWP 17 SEVERE PUL HYPERTENSION START REVATIO 20 MG TID HEMODIALYSIS IN AM CHEST CXR STILL WITH INFILTRATIVE PROCESS START WEAN SEDATION WITH HD SIGNIFICANT IMPROVEMENT IN LUNG EFFUSION AND INFILTRATE STOP SEDATION WEAN PT OFF VENT OTHERWISE CONSIDER TRACH CHEST CXR APPEARS TO HAVE IMPROVED SIGNIFICANTLY COMPARED TO 08/29/25 LAST RIGHT SIDED EFFUSION SIGNIFICANT CLEARING OF INTERSTITIAL INFILTRATE OFF SEDATION EXTUBATED DIALYSIS UREMIC LEUKOCYTOSIS CXR ABG RESP ACIDOSIS IMPROVED WITH LOWER O2 LEUKOCYTOSIS CONSIDER CT CHEST CXR STABLE WITH MILD IMPROVEMENT OF INFILTRATE PT REVIEWED LABS: NA, K, AND CL ARE NORMAL Dietary Evaluation Review Comments: Nutrition Recommendation: 1) EN Nepro Carbsteady @ 30ml/hr x 24hr (goal) along with Pro-stat 1 pk BID. Water flush 50ml Q6H if allowed, adjust PRN. TF at goal volume along with propofol & Pro-stat provide 1777 kcal (100%), 89 gm protein (83%), and 723 ml free water(including flush). 2) TPN if NPO >7 days 3) Monitor NPO status, lab values, weight trend, and I/O Expected Outcomes/Goals: Intake to meet >75% estimated needs Lab values to improve FU 2-3 days Plan discussed with: Patient RAMIN GARCIA MD Sep 23, 2025 13:06
--- NOTE | 2025-09-23 13:17 | DVHPNRES ---
Progress Note Date Seen: Sep 23, 2025 Resident Creating Document: URIAH NOBLE RESIDENT Has the PT tested + for MRSA If YES, has PT been informed?: No Medical Necessity Reason Pt with a Central, PICC or Fol: Yes The following are medically ne: Meng Catheter Reason for meng catheter: Strict I&O Subjective Review of Systems Ms. Marin is a 75-year-old female with prior medical history of HFpEF, COPD with home oxygen, gout, anxiety, type 2 diabetes mellitus, hyperlipidemia, hypertension, and PAD, who bas brought to the [facility] by EMS with chief complaint of shortness of breath and back and midsternal non-radiating chest pain. Daughter reported progressively worsening shortness of breath for the last 2 weeks associated with general malaise and orthopnea, describing very wet coughing sounds when her mother lays flat. She states that her mother began complaining of worsening shortness of breath associated with non-radiating midsternal chest pain which prompted her to call EMS. Per record, on seen she was saturating 74%, she was placed on CPAP with inspiration increasing to 88% on route to the emergency department. On evaluation in the ED, patient was afebrile, slightly hypertensive, and tachypneic, saturating 81% which she was placed on BiPAP. Initial labs significant for leukocytosis of 11.3, with elevated hematocrit, and thrombocytopenia, hyperkalemia, creatinine 4.09, BUN 46, and ABG significant for respiratory acidosis, troponins are negative, BNP 2515.41. Serology was positive for influenza A and B. Chest x-ray showed moderate to severe pulmonary edema. Patient further deteriorated requiring intubation for respiratory distress. She was started on IV Lasix, IV methylprednisolone, hyperkalemia protocol, bicarbonate drip, and nitroglycerin drip. Prior Medical history: CHF, COPD, gout, anxiety, type 2 diabetes mellitus, hyperlipidemia, hypertension, PAD, pulmonary hypertension Previous surgical history: Left leg stenting for PAD Allergies: Denies Social history: Daughter reports the patient smokes cigarettes with cessation approximately 20 years ago Home medications: Allopurinol, insulin, gabapentin, simvastatin, tadalafil 07/20/2025: Patient was seen at bedside. She passed swallow evaluation over the weekend; patient appears more confused in the morning as the day progresses patient is more alert and oriented. Blood culture positive for coagulase negative Staphylococcus epidermidis, likely due to contamination. Discontinued hydralazine in context of normal blood pressure. Discontinued vancomycin in context of absence of a left shift. We will consult social worker clinical for placement in SNF, patient will undergo tunneled catheter placement with Radiology, interventional Radiology consulted. Physical therapy on board. 07/21/2025: Patient was seen at bedside. She has no new complaints today. Consulted social worker clinical for placement in SNF for physical therapy. Ordered another set of blood cultures, pending placement of tunneled hemodialysis catheter. Discontinued NG tube. 07/22/2025: Patient was seen at bedside. Patient was sleepy during the interview. No significant overnight episodes. 09/22/2025: Patient was seen at bedside. She complained of back pain and generalized itching. Ordered lidocaine patch and Benadryl for symptomatic relief. Hemodialysis today. Repeat blood culture shows no growth, we will follow up with IR for tunneled Hd catheter. 07/24/2025: Patient was seen at bedside. She complained of back pain and generalized itching. Overnight, patient refused antibiotic treatment and declined blood draw. In morning the patient was unsure about which medication she had refused overnight. She also stated that she does not want further IV medication and does not want to be "poked" anymore. On bedside evaluation, at the time she declined IV antibiotics and blood draw, the patient appeared a and O x4. She was able to correctly state who she is, where she is and where she lives. However during the encounter she exhibited intermittent episodes of confusion including brief moments where she was unable to sustain conversation and appeared to lose track before redirecting back appropriately. Overall, despite being oriented to person, place, time, situation during the assessment, the patient continues to demonstrate intermittent confusion likely from underlying dementia. Patient's daughter Susy mayes. Objective vital signs Vital Sign Date Time Temp Pulse Resp B/P (MAP) Pulse Ox O2 Delivery O2 Flow Rate FiO2 09/23/25 12:41 93 16 100 09/23/25 12:31 Nasal Cannula* 3 32 09/23/25 09:08 144/74 09/23/25 09:00 98.2 98.2 Total Intake and Output 09/22/25 09/22/25 09/23/25 14:59 22:59 06:59 Intake Total 950 ml 480 ml Output Total 325 ml 75 ml Balance 625 ml 405 ml medications Current Medications Medications Dose Ordered Sig/Adri Route Start Time Stop Time Status Last Admin Dose Admin Nitroglycerin 0.4 mg Q5MINP PRN SL 08/20/25 23:15 Hold Levalbuterol HCl 1.25 mg Q6HR NEB 09/09/25 12:00 09/23/25 12:31 1.25 MG Acetylcysteine 100 mg Q6HR NEB 09/09/25 12:00 09/23/25 12:31 100 MG Ipratropium [place] 0.5 mg Q6HR NEB 09/09/25 12:00 09/23/25 12:31 0.5 MG Heparin Sodium (Porcine) 5,000 units Q12HR SC 09/12/25 22:00 09/23/25 09:17 5,000 UNITS Albumin Human 100 ml @ 100 mls/hr PRN PRN IV 09/13/25 07:00 09/15/25 11:23 100 MLS/HR Bumetanide 2 mg DAILY IV 09/16/25 14:00 09/23/25 09:08 2 MG Ondansetron HCl 4 mg Q4HPRN PRN IV 09/18/25 05:45 09/20/25 14:34 4 MG Amino Acid Protein 30 ml Q6HR PO 09/20/25 00:00 09/22/25 17:50 30 ML Sildenafil Citrate 20 mg TID@08,14,20 PO 09/20/25 08:00 09/23/25 09:09 20 MG Meropenem 50 ml @ 17 mls/hr HS IV 09/22/25 22:00 Enteral Nutritional Formula 240 ml BIDWM PO 09/21/25 18:00 09/23/25 08:00 240 ML Lidocaine 1 patch DAILY TOP 09/23/25 10:00 Examination General: Patient was A&O x4. Following commands. HEENT: Nystagmus POA Respiratory/pulmonary: Normal breath sounds heard Cardiovascular: Normal heart sounds S1 and S2 with no associated murmurs. Abdomen: Abdomen nondistended, normal bowel sounds. Extremities: Dry, crusted planter surface of bilateral feet. SCDs present bilaterally. Sacrum: Healing sacral flap (POA) from previous sacral ulcer laboratory and microbiology Laboratory Tests 09/22/25 05:34 Test 09/22/25 05:34 Range/Units Serum Glucose 81 74-106 mg/dL Microbiology Date/Time Source Procedure Growth Status 09/22/25 16:00 Voided Urine Urine Culture - Preliminary No growth Resulted 09/20/25 17:25 Blood Blood Culture - Preliminary NO GROWTH AFTER 48 HOURS OF INCUBATION. Resulted 08/22/25 08:06 Nose MRSA Screen - Final Complete Problem List/Assessment/Plan Problem List/Assessment/Plan Neurology Sedation/analgesia Versed Discontinued Propofol: Discontinued Fentanyl discontinued # Metabolic encephalopathy due to Uremia/ Sepsis with anxiety/agitation/ delirium POA Creatinine continues to trend up. IR deferred tunneled catheter placement for now. Temporary hemodialysis catheter inserted Ordered ABG in context of no improvement in confusion. ABG resulted WNL Ordered noncontrast CT head. Underwent hemodialysis today PT on board; social service consulted for placement in SNF for physical therapy # Dementia, unspecified Follow with neurology in outpatient clinic HEENT # Right eye nystagmus Per daughter, present since Cardiovascular # Acute on chronic HFpEF (improving) # Pulmonary Edema BNP normalized; OA Chest xray 08/20/2025: Moderate to severe pulmonary edema Chest xray 08/21/2025: Cardiomegaly with pulmonary venous congestion and edema Echocardiogram 01/14/2022: EF > 60%, Limited echo windows, mild TR, MR Echocardiogram 10/22/2024: Technically good study sinus rhythm. Concentric LVH with left atrial enlargement. Mild aortic sclerosis. Mild thickening of the anterior and posterior mitral leaflets. Valves appear to be structurally normal. Left ventricular function is preserved at 60% with normal RV function. Cardiology: Pending echo, considered R/LHC if inconclusive , discontinue bumex drip Per nephrology: Trial of bumex + albumin and D5W 75 cc/hour. Bumex drip discontinued by cardiology. D5W has been discontinued due to resolution of hypernatremia Lasix discontinued Repeat CXR from 09/13/2025 shows pulmonary vascular congestion reduced in comparison to previous X-rays Chest x-ray from 09/15/2025 shows stable pulmonary vascular congestion and small pleural effusions Continue Bumex 2 mg daily per Nephrology (see below) #Hypertension Continue Amlodipine 10 mg NG daily, Hydralazine 50 mg q8 #CAD Coronary angiogram done on 08/30/2025: Left main, LAD and circumflex are patent, RCA patent, EF is 50-55% #Severe pulmonary hypertension R/L heart catheterization 08/30/2025: RA pressure 18 mmHg, RV pressure 62/16 mmHg, pulmonary artery pressure 66/18 mmHg, capillary wedge pressure: 17 mmHg Per cardiology: Sildenafil 20mg NG TID, testing testing 40 but this was lowered Respiratory Ventilator Intubated (08/21/2025) Extubated (09/07/2025) # Acute hypercapnic respiratory failure secondary to pulmonary edema s/p Extubation # Acute hypoxic respiratory failure # Respiratory acidosis (resolving) Discontinued oxygen supplementation with Oxymizer Med neb treatment with Ipratropium, levalbuterol Mucomyst 100 mg q 8 hours PT evaluation requested Continue oxygen supplementation, currently on 5 L oxygen. Continue tapering as tolerated. # Acute COPD exacerbation Methylprednisolone 40 mg IV, discontinued Medneb treatment with Ipratropium medneb, Albuterol medneb Ceftriaxone 1 g IV daily (discontinued) # Community acquired pneumonia due to Gram-positive/Gram-negative pneumonia/ Influenza A and B POA Tamiflu 30 mg BID suspension, discontinued Discontinued Zosyn, Discontinued vancomycin. Continue IV Ceftriaxone Gastrointestinal NG tube reinserted (09/13/2025); failed swallow evaluation # Peptic ulcer prophylaxis Pantoprazole 40 mg IV daily # Constipation Lactulose 15 mL Genitourinary Replace Meng catheter (09/12/25) Replace Meng catheter 09/18/2025 # Possible Complicated UTI, resolving UA positive for UTI Ceftriaxone 1 g IV daily, discontinued Previously switched cefepime to vancomycin and Zosyn Nephrology # COLE on CKD likely hemodynamically mediated/ VMN # ESRD requiring intermittent HD Supportive management with IV fluids given Nephrology on board, recommended hemodialysis Patient initially had dialysis catheter in the right femoral region, removed. Interventional radiology on board, tunneled catheter placement deferred till confirmation with negative blood cultures. Kidney ultrasound shows no acute abnormality Nephrology on board, recommended hemodialysis, richy Marie in the interim. Continue tube feeding, monitor fluid balances, strict I&Os On Hemodialysis On Bumex 2 mg IV (started on 09/16/2025) per nephrology Radiology consulted for tunneled hemodialysis catheter # Hyperkalemia, resolved Per nephrology: trial of forced diuresis to enhance potassium excretion, serial chemistry panels, IV bicarbonate infusion, and avoidance of IV contrast if able. # Hypokalemia Supplemented # Acute metabolic acidosis # Nephrotic syndrome secondary to underlying diabetic nephropathy, possible # Hypernatremia due to insensible water loss D5W, discontinued Infectious disease # Sepsis POA d/t below # Influenza A and B Pneumonia POA Serology positive for Influenza A & B Tamiflu 30 mg BID suspension, discontinued # Possible Complicated UTI, present on admission Ceftriaxone 1 g IV daily, discontinued Discontinued cefepime; discontinue vancomycin. Discontinued Zosyn. Discontinued IV Rocephin. Ordered urine analysis, repeat urine culture Continue IV meropenem (renally dosed) Repeat blood culture shows no growth Patient noncompliant # Bacteremia versus contamination due to Staphylococcus epidermidis Repeat blood culture shows no growth, positive results on 1 set likely due to contamination Hem/oncology # Thrombocytopenia, resolved # Microcytic, hypochromic anemia # Heparin induced thrombocytopenia type 1, possible Intermediate possibility of HIT on 4Ts score Monitor CBC # Eosinophilia Switched Zosyn to IV Rocephin. Eosinophil continues to trend down. Monitor CBC Endocrine # Type 2 diabetes mellitus Mild Sliding scale Monitor blood glucose # Class 1 Obesity BMI 30 DVT prophylaxis: Heparin 5000 U BID PUD prophylaxis: Pantoprazole 40 mg IV daily Lines: - L femoral Central line 08/20/2025 - discontinued on 08/29/2025 - L internal jugular central line 08/29/2025 09/08/2025 - Meng catheter 08/20/2025 - ET tube: 08/21/2025 (extubated 09/07/2025) - Femoral Frank catheter: 08/30/2025- 09/10/2025 - Mid line: 09/08/2025 - Frank catheter 09/12/25 Nutrition: Nepro discontinued Continue p.o. nutrition; renal mechanical soft diet PO Nepro b.i.d. Goals of care discussed with nurses, Daughters- Susy & Gracia over telephonic conversation Goals of care discussed at bedside for more than 51 minutes. Plan discussed with Dr. Martell Plan discussed with: Daughter, Other (nurses) My Orders My Orders Orders - URIAH NOBLE RESIDENT Procedure Category Date Status Time Lidocaine 5% Topical PHA 09/23/25 In Process Patch (Lidoderm 5% 10:00 Communication Order ORDERS 09/22/25 Transmitted 15:44 Ok To Change Meng ORDERS 09/23/25 Transmitted 06:54 Communication Order ORDERS 09/23/25 Transmitted 06:54 Blood Culture MARIMAR 09/23/25 Logged 11:57 Dietary Evaluation Review Comments: Nutrition Recommendation: 1) EN Nepro Carbsteady @ 30ml/hr x 24hr (goal) along with Pro-stat 1 pk BID. Water flush 50ml Q6H if allowed, adjust PRN. TF at goal volume along with propofol & Pro-stat provide 1777 kcal (100%), 89 gm protein (83%), and 723 ml free water(including flush). 2) TPN if NPO >7 days 3) Monitor NPO status, lab values, weight trend, and I/O Expected Outcomes/Goals: Intake to meet >75% estimated needs Lab values to improve FU 2-3 days Visit Coding STANDARD RES Billing Provider: RAVI MARTELL MD Date of Service if different f: Sep 23, 2025 Common Visit Codes: 00154-[id number] INP/OBS CARE(HIGH) Secondary Visit Codes: [id number] CARE PLAN 30 MINUTES URIAH NOBLE RESIDENT Sep 23, 2025 13:17
[2025-09-23] MEDS ORDERED: ERTAPENEM SOD 1 GM INJ VIAL IM SCH (14:00)
[2025-09-23] MEDS: ACETAMINOPHEN 325 MG TAB PO ONE (14:00)
[2025-09-23] MEDS: MEROPENEM 500MG IVPB 50 ML IV SCH (15:08)
[2025-09-23 19:14] LABS: Hematocrit 36.7 % (36.0-46.0); Hemoglobin 10.7 g/dL (12.2-16.2); Mean Corpuscular Hemoglobin 19.2 pg (28.0-32.0); Mean Corpuscular Volume 66.1 fL (80.0-100.0)
[2025-09-23 19:22] LABS: Chloride 102 mmol/L (98-107); Potassium 3.8 mmol/L (3.5-5.1); Sodium 140 mmol/L (136-145)
[2025-09-23 19:23] LABS: Anion Gap 11 (5-15); Carbon Dioxide 27 mmol/L (20-31)
[2025-09-23 19:24] LABS: Calcium 9.5 mg/dL (8.7-10.4)
[2025-09-23 19:29] LABS: BUN/Creatinine Ratio 3.7 (10.0-20.0); Blood Urea Nitrogen 22 mg/dL (9-23)
[2025-09-23 19:31] LABS: Glucose 112 mg/dL (74-106)
[2025-09-23 19:40] LABS: Anisocytosis Moderate; Total Cells Counted 100.0 (100)
--- NOTE | 2025-09-23 22:21 | DVHPN2 ---
Subjective DOS: 09/23/2025 Patient seen and examined at bedside. On supplemental oxygen Overnight events reviewed. Changes from previous H/P or p: No Changes Eyes: No Pain, No Vision change, No Conjunctivae inflammation, No Eyelid inflammation, No Other, No Redness ENT: No Ear pain, No Ear discharge, No Nose pain, No Nose discharge, No Nose congestion, No Mouth pain, No Mouth swelling, No Throat pain, No Throat swelling, No Other Cardiovascular: Chest Pain Respiratory: Shortness of breath, Other Gastrointestinal: No Nausea, No Vomiting, No Abdominal Pain, No Diarrhea, No Constipation, No Melena, No Hematochezia, No Other Genitourinary: Other Musculoskeletal: other Skin: Other Objective Vitals Vital Signs Date Time Temp Pulse Resp B/P (MAP) Pulse Ox O2 Delivery O2 Flow Rate FiO2 09/23/25 21:00 97.5 86 19 125/68 (87) 97 97.5 09/23/25 20:00 Nasal Cannula* 3 32 Intake/Output Intake and Output 09/23/25 07:00 Intake Total 1430 ml Output Total 400 ml Balance 1030 ml Intake Oral 1430 ml Output Urine Total 400 ml # Bowel Movements 1 Exam Gen.: Patient lying in bed in no apparent distress. On supplemental oxygen. Head: Normocephalic, atraumatic. Eyes: EOMI/PERRLA. Ears: Normal hearing. Normal anatomy. Neck/trachea: Trachea midline, supple. Nose: Normal external anatomy. Mouth: Moist mucous membranes. Chest: Decreased air entry bilaterally. No wheezing or rhonchi. Cardiovascular: Positive S1, positive S2. Regular rate and rhythm. Abdomen: Positive bowel sounds in all 4 quadrants. Soft, non-tender, non- distended. : Deferred. Rectal: Deferred. Skin: Warm, dry. Intact. Extremities: 2+ radial pulses bilaterally. No lower extremity edema. Neuro: Awake, alert, oriented x3. No gross motor or sensory deficits. Cranial nerves II through XII intact. Gait not assessed. Medications Current Medications Medications Dose Ordered Sig/Adri Route Start Time Stop Time Status Last Admin Dose Admin Nitroglycerin 0.4 mg Q5MINP PRN SL 08/20/25 23:15 Hold Levalbuterol HCl 1.25 mg Q6HR NEB 09/09/25 12:00 09/23/25 12:31 1.25 MG Acetylcysteine 100 mg Q6HR NEB 09/09/25 12:00 09/23/25 12:31 100 MG Ipratropium [place] 0.5 mg Q6HR NEB 09/09/25 12:00 09/23/25 12:31 0.5 MG Heparin Sodium (Porcine) 5,000 units Q12HR SC 09/12/25 22:00 09/23/25 09:17 5,000 UNITS Albumin Human 100 ml @ 100 mls/hr PRN PRN IV 09/13/25 07:00 09/15/25 11:23 100 MLS/HR Bumetanide 2 mg DAILY IV 09/16/25 14:00 09/23/25 09:08 2 MG Ondansetron HCl 4 mg Q4HPRN PRN IV 09/18/25 05:45 09/20/25 14:34 4 MG Amino Acid Protein 30 ml Q6HR PO 09/20/25 00:00 09/23/25 18:09 30 ML Sildenafil Citrate 20 mg TID@08,14,20 PO 09/20/25 08:00 09/23/25 20:24 20 MG Enteral Nutritional Formula 240 ml BIDWM PO 09/21/25 18:00 09/23/25 18:09 240 ML Lidocaine 1 patch DAILY TOP 09/23/25 10:00 Meropenem 50 ml @ 17 mls/hr HS IV 09/23/25 14:15 09/23/25 15:08 17 MLS/HR Laboratory Results Laboratory Tests 09/23/25 18:55 Chemistry Test 09/23/25 18:55 Calcium Level 9.5 mg/dL (8.7-10.4) Urinalysis Test 08/22/25 11:43 08/22/25 12:52 09/22/25 16:00 Urine Hyaline Casts Mod /lpf (0 - 2) Urine Mucus Few (None Seen) Urine Protein/Creatinine Ratio 4.08 Urine Total Protein 204.4 mg/dL (1-14) H Urine Creatinine 52.93 mg/dL (30.0-125.0) Urine Sodium 114 mmol/L (40-220) Urine Color Light-brown (Yellow) Urine Clarity Turbid (Clear) H Urine pH 7.5 (5.0-9.0) Urine Specific [place] 1.018 (1.001-1.035) Urine Protein 3+ (Negative) H Urine Ketones Negative (Negative) Urine Blood 3+ /uL (Negative) H Urine Nitrite Negative (Negative) Urine Bilirubin Negative (Negative) Urine Urobilinogen Normal mg/dL (Negative) Urine Leukocyte Esterase 3+ /uL (Negative) Urine RBC 1462 /hpf (0 - 4) Urine WBC Clumps Present /hpf (None Seen) Urine Microscopic WBC 311 /HPF (0-5) H Urine Squamous Epithelial Cells None seen /hpf (<5) Urine Bacteria None seen /hpf (None Seen) Urine Glucose 2+ mg/dL (Normal) H Microbiology Microbiology Date/Time Source Procedure Growth Status 09/22/25 16:00 Voided Urine Urine Culture - Preliminary No growth Resulted 09/20/25 17:25 Blood Blood Culture - Preliminary NO GROWTH AFTER 72 HOURS OF INCUBATION. Resulted 08/22/25 08:06 Nose MRSA Screen - Final Complete Assessment/Plan Assessment/Plan Impression: Acute hypoxic respiratory failure Acute hypercapnic respiratory failure Dependence on supplemental oxygen Pulmonary edema Pulmonary hypertension Metabolic acidosis Acute renal failure Morbid obesity Events: Patient remains on supplemental oxygen On 3 LPM NC Taper O2 as tolerated HD per Nephrology - s/p hemodialysis yesterday Nephrology recs appreciated Note, pt refused IV abx overnight, refused blood draws. Continue antibiotics Blood cultures from 09/15/2025 show Gram-positive cocci in clusters, coagulase negative Staphylococcus Repeat blood cultures show contaminant Monitor WBC Continue bronchodilators Mucomyst Sildenafil TID for pulmonary hypertension. Femoral Frank catheter was removed - concern as cause of elevated WBC Monitor temperatures Continue to monitor platelets Continue physical therapy Diurese with Bumex IVP Maintain euvolemia Monitor renal function Monitor electrolytes, supplement as necessary Monitor urine output Plan to exchange Schuster F/u with IR for tunneled catheter Anxiolytic PRN Labs and imaging reviewed. Rest of plan as noted below. Plan: S/p extubation on 09/07/25 On supplemental oxygen Titrate to keep O2 sats above 90%. Continue antibiotics. Continue bronchodilators Mucomyst Pressors as necessary for hemodynamic support Titrate to keep mean arterial pressure greater than 65 mmHg. Hemodialysis per Nephrology Monitor renal function Monitor electrolytes. Supplement as necessary. Monitor ins and outs. Recommend diet and lifestyle modifications for weight reduction Obesity complicates all care GI prophylaxis. DVT prophylaxis. Prognosis: Poor given patient's multiple co-morbidities. Rest of plan per hospitalist and other consultants. Thank you, Dr. Mike Zheng, for allowing me to participate in this patient's care. Further recommendations will depend on the patient's clinical course. Please do not hesitate to contact me if you have any questions or concerns. This medical document was created using an electronic medical record system with [employer] dictation system. Although these documentations are being carefully reviewed, there may still be some phonetic and typographical changes. The errors are purely typographical, due to imperfection on the software program, and do not reflect any compromise in the patient's medical care. Plan discussed with: Other (RN) Visit Coding Pulmonary Billing Provider: RAVI SABA MD Date of Service if different f: Sep 23, 2025 Common Visit Codes: 46142-[id number] INP/OBS CARE(HIGH) RAVI SABA MD Sep 23, 2025 22:21
[2025-09-24] VITALS (13 sets, daily range): BP systolic 104–150; BP diastolic 53–86; PULSE 75–98; RESP 16–19; TEMP 97–98.2; O2SAT 91–100
[2025-09-24 10:31] LABS: Hematocrit 34.6 % (36.0-46.0); Hemoglobin 10.1 g/dL (12.2-16.2); Mean Corpuscular Hemoglobin 19.4 pg (28.0-32.0); Mean Corpuscular Volume 66.5 fL (80.0-100.0); Nucleated Red Blood Cells % 0.2 %
[2025-09-24 10:37] LABS: Chloride 101 mmol/L (98-107); Potassium 4.0 mmol/L (3.5-5.1); Sodium 139 mmol/L (136-145)
[2025-09-24 10:38] LABS: Anion Gap 12 (5-15); Calcium 9.5 mg/dL (8.7-10.4); Carbon Dioxide 26 mmol/L (20-31)
[2025-09-24 10:43] LABS: BUN/Creatinine Ratio 4.1 (10.0-20.0); Glucose 94 mg/dL (74-106)
[2025-09-24 10:53] LABS: Blood Urea Nitrogen 27 mg/dL (9-23)
[2025-09-24] MEDS: ACETAMINOPHEN 325 MG TAB PO ONE (12:15)
--- NOTE | 2025-09-24 12:30 | DVHPN2 ---
Progress Note Date Seen: Sep 24, 2025 Has the PT tested + for MRSA If YES, has PT been informed?: No Medical Necessity Reason Pt with a Central, PICC or Fol: Yes The following are medically ne: Meng Catheter Reason for meng catheter: Strict I&O Subjective Review of Systems: RESPIRATORY:Abnormal Other Systems: Patient seen and examined by myself today in follow-up, O2 nasal cannula Patient examined hemodialysis, blood pressure stable Objective vital signs Vital Sign Date Time Temp Pulse Resp B/P (MAP) Pulse Ox O2 Delivery O2 Flow Rate FiO2 09/24/25 09:55 140/56 09/24/25 09:00 97.4 79 18 94 97.4 09/24/25 08:00 Nasal Cannula* 3 32 Total Intake and Output 09/23/25 09/23/25 09/24/25 15:00 23:00 07:00 Intake Total 0 ml 480 ml Output Total 150 ml Balance 0 ml 330 ml medications Current Medications Medications Dose Ordered Sig/Adri Route Start Time Stop Time Status Last Admin Dose Admin Nitroglycerin 0.4 mg Q5MINP PRN SL 08/20/25 23:15 Hold Levalbuterol HCl 1.25 mg Q6HR NEB 09/09/25 12:00 09/24/25 07:17 1.25 MG Acetylcysteine 100 mg Q6HR NEB 09/09/25 12:00 09/24/25 07:17 100 MG Ipratropium [place] 0.5 mg Q6HR NEB 09/09/25 12:00 09/24/25 07:17 0.5 MG Heparin Sodium (Porcine) 5,000 units Q12HR SC 09/12/25 22:00 09/24/25 09:55 5,000 UNITS Albumin Human 100 ml @ 100 mls/hr PRN PRN IV 09/13/25 07:00 09/15/25 11:23 100 MLS/HR Bumetanide 2 mg DAILY IV 09/16/25 14:00 09/24/25 09:55 2 MG Ondansetron HCl 4 mg Q4HPRN PRN IV 09/18/25 05:45 09/20/25 14:34 4 MG Amino Acid Protein 30 ml Q6HR PO 09/20/25 00:00 09/24/25 12:19 30 ML Sildenafil Citrate 20 mg TID@08,14,20 PO 09/20/25 08:00 09/24/25 08:06 20 MG Enteral Nutritional Formula 240 ml BIDWM PO 09/21/25 18:00 09/24/25 08:07 240 ML Lidocaine 1 patch DAILY TOP 09/23/25 10:00 09/24/25 09:55 1 PATCH Meropenem 50 ml @ 17 mls/hr HS IV 09/23/25 14:15 09/23/25 15:08 17 MLS/HR Examination: LUNGS:Abnormal, CVS:Normal, MSK:Abnormal laboratory and microbiology Laboratory Tests 09/24/25 10:17 Test 09/24/25 10:17 Range/Units Serum Glucose 94 74-106 mg/dL Microbiology Date/Time Source Procedure Growth Status 09/22/25 16:00 Voided Urine Urine Culture - Preliminary Resulted 09/20/25 17:25 Blood Blood Culture - Preliminary NO GROWTH AFTER 72 HOURS OF INCUBATION. Resulted 08/22/25 08:06 Nose MRSA Screen - Final Complete Problem List/Assessment/Plan Problem List/Assessment/Plan ESRD requiring intermittent HD Acute hypoxic respiratory failure, extubated Community-acquired pneumonia Diabetes mellitus type 2 Nephrotic syndrome secondary to underlying diabetic nephropathy Hyperkalemia Hypernatremia due to insensible water loss Recommendations Continue with UF to 3 L as tolerated Epogen 10,000 subQ 3 times weekly Hyperkalemia resolved Hypernatremia appropriately resolved Strict I&Os kidney ultrasound reported within normal limit IV antibiotics Discontinue amlodipine due to low blood pressure Avoid nephrotoxic medications We will continue to follow Plan discussed with: Patient Dietary Evaluation Review Comments: Nutrition Recommendation: 1) EN Nepro Carbsteady @ 30ml/hr x 24hr (goal) along with Pro-stat 1 pk BID. Water flush 50ml Q6H if allowed, adjust PRN. TF at goal volume along with propofol & Pro-stat provide 1777 kcal (100%), 89 gm protein (83%), and 723 ml free water(including flush). 2) TPN if NPO >7 days 3) Monitor NPO status, lab values, weight trend, and I/O Expected Outcomes/Goals: Intake to meet >75% estimated needs Lab values to improve FU 2-3 days JEANNE WHITE MD Sep 24, 2025 12:30
--- NOTE | 2025-09-24 16:05 | DVHPNRES ---
Progress Note Date Seen: Sep 24, 2025 Resident Creating Document: URIAH NOBLE RESIDENT Has the PT tested + for MRSA If YES, has PT been informed?: No Medical Necessity Reason Pt with a Central, PICC or Fol: Yes The following are medically ne: Meng Catheter Reason for meng catheter: Strict I&O Subjective Review of Systems Ms. Marin is a 75-year-old female with prior medical history of HFpEF, COPD with home oxygen, gout, anxiety, type 2 diabetes mellitus, hyperlipidemia, hypertension, and PAD, who bas brought to the [facility] by EMS with chief complaint of shortness of breath and back and midsternal non-radiating chest pain. Daughter reported progressively worsening shortness of breath for the last 2 weeks associated with general malaise and orthopnea, describing very wet coughing sounds when her mother lays flat. She states that her mother began complaining of worsening shortness of breath associated with non-radiating midsternal chest pain which prompted her to call EMS. Per record, on seen she was saturating 74%, she was placed on CPAP with inspiration increasing to 88% on route to the emergency department. On evaluation in the ED, patient was afebrile, slightly hypertensive, and tachypneic, saturating 81% which she was placed on BiPAP. Initial labs significant for leukocytosis of 11.3, with elevated hematocrit, and thrombocytopenia, hyperkalemia, creatinine 4.09, BUN 46, and ABG significant for respiratory acidosis, troponins are negative, BNP 2515.41. Serology was positive for influenza A and B. Chest x-ray showed moderate to severe pulmonary edema. Patient further deteriorated requiring intubation for respiratory distress. She was started on IV Lasix, IV methylprednisolone, hyperkalemia protocol, bicarbonate drip, and nitroglycerin drip. Prior Medical history: CHF, COPD, gout, anxiety, type 2 diabetes mellitus, hyperlipidemia, hypertension, PAD, pulmonary hypertension Previous surgical history: Left leg stenting for PAD Allergies: Denies Social history: Daughter reports the patient smokes cigarettes with cessation approximately 20 years ago Home medications: Allopurinol, insulin, gabapentin, simvastatin, tadalafil 07/20/2025: Patient was seen at bedside. She passed swallow evaluation over the weekend; patient appears more confused in the morning as the day progresses patient is more alert and oriented. Blood culture positive for coagulase negative Staphylococcus epidermidis, likely due to contamination. Discontinued hydralazine in context of normal blood pressure. Discontinued vancomycin in context of absence of a left shift. We will consult hospital social worker for placement in SNF, patient will undergo tunneled catheter placement with Radiology, interventional Radiology consulted. Physical therapy on board. 07/21/2025: Patient was seen at bedside. She has no new complaints today. Consulted hospital social worker for placement in SNF for physical therapy. Ordered another set of blood cultures, pending placement of tunneled hemodialysis catheter. Discontinued NG tube. 07/22/2025: Patient was seen at bedside. Patient was sleepy during the interview. No significant overnight episodes. 09/22/2025: Patient was seen at bedside. She complained of back pain and generalized itching. Ordered lidocaine patch and Benadryl for symptomatic relief. Hemodialysis today. Repeat blood culture shows no growth, we will follow up with IR for tunneled Hd catheter. 07/24/2025: Patient was seen at bedside. She complained of back pain and generalized itching. Overnight, patient refused antibiotic treatment and declined blood draw. In morning the patient was unsure about which medication she had refused overnight. She also stated that she does not want further IV medication and does not want to be "poked" anymore. On bedside evaluation, at the time she declined IV antibiotics and blood draw, the patient appeared a and O x4. She was able to correctly state who she is, where she is and where she lives. However during the encounter she exhibited intermittent episodes of confusion including brief moments where she was unable to sustain conversation and appeared to lose track before redirecting back appropriately. Overall, despite being oriented to person, place, time, situation during the assessment, the patient continues to demonstrate intermittent confusion likely from underlying dementia. Patient's daughter Susy updated. 07/25/2025: Patient seen at bedside. Yesterday, patient IV meropenem after thorough counseling. Labs show WBC count trending down. Today she is complaining of generalized itching and bilateral leg pain. Patient appeared agitated in complaint of disliking the food. She also refused blood draw in the morning. Per patient she does not like being woken up in the morning for blood draws, we will schedule labs for 10:00 a.m. tomorrow. Patient was counseled and attempts were made to calm her, daughter on bedside. Offered additional blankets as she was complaining of feeling cold overnight. She continues to refuse Meng change; patient verbalized the understanding of her current medical condition and management. Objective vital signs Vital Sign Date Time Temp Pulse Resp B/P (MAP) Pulse Ox O2 Delivery O2 Flow Rate FiO2 09/24/25 12:47 98.2 94 18 134/86 (102) 96 98.2 09/24/25 08:00 Nasal Cannula* 3 32 Total Intake and Output 09/23/25 09/23/25 09/24/25 15:00 23:00 07:00 Intake Total 0 ml 480 ml Output Total 150 ml Balance 0 ml 330 ml medications Current Medications Medications Dose Ordered Sig/Adri Route Start Time Stop Time Status Last Admin Dose Admin Nitroglycerin 0.4 mg Q5MINP PRN SL 08/20/25 23:15 Hold Levalbuterol HCl 1.25 mg Q6HR NEB 09/09/25 12:00 09/24/25 07:17 1.25 MG Acetylcysteine 100 mg Q6HR NEB 09/09/25 12:00 09/24/25 07:17 100 MG Ipratropium [place] 0.5 mg Q6HR NEB 09/09/25 12:00 09/24/25 07:17 0.5 MG Heparin Sodium (Porcine) 5,000 units Q12HR SC 09/12/25 22:00 09/24/25 09:55 5,000 UNITS Albumin Human 100 ml @ 100 mls/hr PRN PRN IV 09/13/25 07:00 09/15/25 11:23 100 MLS/HR Bumetanide 2 mg DAILY IV 09/16/25 14:00 09/24/25 09:55 2 MG Ondansetron HCl 4 mg Q4HPRN PRN IV 09/18/25 05:45 09/20/25 14:34 4 MG Amino Acid Protein 30 ml Q6HR PO 09/20/25 00:00 09/24/25 12:19 30 ML Sildenafil Citrate 20 mg TID@08,14,20 PO 09/20/25 08:00 09/24/25 08:06 20 MG Enteral Nutritional Formula 240 ml BIDWM PO 09/21/25 18:00 09/24/25 08:07 240 ML Lidocaine 1 patch DAILY TOP 09/23/25 10:00 09/24/25 09:55 1 PATCH Meropenem 50 ml @ 17 mls/hr HS IV 09/23/25 14:15 09/23/25 15:08 17 MLS/HR Examination General: Patient was A&O x4. Agitated. Following commands. HEENT: Nystagmus POA Respiratory/pulmonary: Normal breath sounds heard Cardiovascular: Normal heart sounds S1 and S2 with no associated murmurs. Abdomen: Abdomen nondistended, normal bowel sounds. Extremities: Dry, crusted planter surface of bilateral feet. SCDs present bilaterally. Sacrum: Healing sacral flap (POA) from previous sacral ulcer laboratory and microbiology Laboratory Tests 09/24/25 10:17 Test 09/24/25 10:17 Range/Units Serum Glucose 94 74-106 mg/dL Microbiology Date/Time Source Procedure Growth Status 09/22/25 16:00 Voided Urine Urine Culture - Preliminary Resulted 09/20/25 17:25 Blood Blood Culture - Preliminary NO GROWTH AFTER 72 HOURS OF INCUBATION. Resulted 08/22/25 08:06 Nose MRSA Screen - Final Complete Problem List/Assessment/Plan Problem List/Assessment/Plan Neurology Sedation/analgesia Versed Discontinued Propofol: Discontinued Fentanyl discontinued # Metabolic encephalopathy due to Uremia/ Sepsis with anxiety/agitation/ delirium POA Creatinine continues to trend up. IR deferred tunneled catheter placement for now. Temporary hemodialysis catheter inserted Ordered ABG in context of no improvement in confusion. ABG resulted WNL Ordered noncontrast CT head. Underwent hemodialysis today PT on board; social service consulted for placement in SNF for physical therapy # Dementia, unspecified Follow with neurology in outpatient clinic HEENT # Right eye nystagmus Per daughter, present since Cardiovascular # Acute on chronic HFpEF (improving) # Pulmonary Edema BNP normalized; OA Chest xray 08/20/2025: Moderate to severe pulmonary edema Chest xray 08/21/2025: Cardiomegaly with pulmonary venous congestion and edema Echocardiogram 01/14/2022: EF > 60%, Limited echo windows, mild TR, MR Echocardiogram 10/22/2024: Technically good study sinus rhythm. Concentric LVH with left atrial enlargement. Mild aortic sclerosis. Mild thickening of the anterior and posterior mitral leaflets. Valves appear to be structurally normal. Left ventricular function is preserved at 60% with normal RV function. Cardiology: Pending echo, considered R/LHC if inconclusive , discontinue bumex drip Per nephrology: Trial of bumex + albumin and D5W 75 cc/hour. Bumex drip discontinued by cardiology. D5W has been discontinued due to resolution of hypernatremia Lasix discontinued Repeat CXR from 09/13/2025 shows pulmonary vascular congestion reduced in comparison to previous X-rays Chest x-ray from 09/15/2025 shows stable pulmonary vascular congestion and small pleural effusions Continue Bumex 2 mg daily per Nephrology (see below) #Hypertension Continue Amlodipine 10 mg NG daily, Hydralazine 50 mg q8 #CAD Coronary angiogram done on 08/30/2025: Left main, LAD and circumflex are patent, RCA patent, EF is 50-55% #Severe pulmonary hypertension R/L heart catheterization 08/30/2025: RA pressure 18 mmHg, RV pressure 62/16 mmHg, pulmonary artery pressure 66/18 mmHg, capillary wedge pressure: 17 mmHg Per cardiology: Sildenafil 20mg NG TID, testing testing 40 but this was lowered Respiratory Ventilator Intubated (08/21/2025) Extubated (09/07/2025) # Acute hypercapnic respiratory failure secondary to pulmonary edema s/p Extubation # Acute hypoxic respiratory failure # Respiratory acidosis (resolving) Discontinued oxygen supplementation with Oxymizer Med neb treatment with Ipratropium, levalbuterol Mucomyst 100 mg q 8 hours PT evaluation requested Continue oxygen supplementation, currently on 5 L oxygen. Continue tapering as tolerated. # Acute COPD exacerbation Methylprednisolone 40 mg IV, discontinued Medneb treatment with Ipratropium medneb, Albuterol medneb Ceftriaxone 1 g IV daily (discontinued) # Community acquired pneumonia due to Gram-positive/Gram-negative pneumonia/ Influenza A and B POA Tamiflu 30 mg BID suspension, discontinued Discontinued Zosyn, Discontinued vancomycin. Continue IV Ceftriaxone Gastrointestinal NG tube reinserted (09/13/2025); failed swallow evaluation # Peptic ulcer prophylaxis Pantoprazole 40 mg IV daily # Constipation Lactulose 15 mL Genitourinary Replace Meng catheter (09/12/25) Replace Meng catheter 09/18/2025 # Possible Complicated UTI, resolving UA positive for UTI Ceftriaxone 1 g IV daily, discontinued Previously switched cefepime to vancomycin and Zosyn Nephrology # COLE on CKD likely hemodynamically mediated/ VMN # ESRD requiring intermittent HD Supportive management with IV fluids given Nephrology on board, recommended hemodialysis Patient initially had dialysis catheter in the right femoral region, removed. Interventional radiology on board, tunneled catheter placement deferred till confirmation with negative blood cultures. Kidney ultrasound shows no acute abnormality Nephrology on board, recommended hemodialysis, richy Marie in the interim. Continue tube feeding, monitor fluid balances, strict I&Os On Hemodialysis On Bumex 2 mg IV (started on 09/16/2025) per nephrology Radiology consulted for tunneled hemodialysis catheter # Hyperkalemia, resolved Per nephrology: trial of forced diuresis to enhance potassium excretion, serial chemistry panels, IV bicarbonate infusion, and avoidance of IV contrast if able. # Hypokalemia Supplemented # Acute metabolic acidosis # Nephrotic syndrome secondary to underlying diabetic nephropathy, possible # Hypernatremia due to insensible water loss D5W, discontinued Infectious disease # Sepsis POA d/t below # Influenza A and B Pneumonia POA Serology positive for Influenza A & B Tamiflu 30 mg BID suspension, discontinued # Possible Complicated UTI, present on admission Ceftriaxone 1 g IV daily, discontinued Discontinued cefepime; discontinue vancomycin. Discontinued Zosyn. Discontinued IV Rocephin. Ordered urine analysis, repeat urine culture Continue IV meropenem (renally dosed) Repeat blood culture shows no growth Patient noncompliant # Bacteremia versus contamination due to Staphylococcus epidermidis Repeat blood culture shows no growth, positive results on 1 set likely due to contamination Hem/oncology # Thrombocytopenia, resolved # Microcytic, hypochromic anemia # Heparin induced thrombocytopenia type 1, possible Intermediate possibility of HIT on 4Ts score Monitor CBC # Eosinophilia Switched Zosyn to IV Rocephin. Eosinophil continues to trend down. Monitor CBC Endocrine # Type 2 diabetes mellitus Mild Sliding scale Monitor blood glucose # Class 1 Obesity BMI 30 Dermatology # Generalized itching likely due to uremia Benadryl PO prn DVT prophylaxis: Heparin 5000 U BID PUD prophylaxis: Pantoprazole 40 mg IV daily Lines: - L femoral Central line 08/20/2025 - discontinued on 08/29/2025 - L internal jugular central line 08/29/2025 09/08/2025 - Meng catheter 08/20/2025 - ET tube: 08/21/2025 (extubated 09/07/2025) - Femoral Frank catheter: 08/30/2025- 09/10/2025 - Mid line: 09/08/2025 - Frank catheter 09/12/25 Nutrition: Nepro discontinued Continue p.o. nutrition; renal mechanical soft diet PO Nepro b.i.d. Goals of care discussed with nurses, Daughters on bedside Goals of care discussed at bedside for more than 45 minutes. Plan discussed with Dr. Martell Plan discussed with: Daughter, Other (Nurses) Dietary Evaluation Review Comments: Nutrition Recommendation: 1) EN Nepro Carbsteady @ 30ml/hr x 24hr (goal) along with Pro-stat 1 pk BID. Water flush 50ml Q6H if allowed, adjust PRN. TF at goal volume along with propofol & Pro-stat provide 1777 kcal (100%), 89 gm protein (83%), and 723 ml free water(including flush). 2) TPN if NPO >7 days 3) Monitor NPO status, lab values, weight trend, and I/O Expected Outcomes/Goals: Intake to meet >75% estimated needs Lab values to improve FU 2-3 days Visit Coding STANDARD RES Billing Provider: RAVI MARTELL MD Date of Service if different f: Sep 24, 2025 Common Visit Codes: 57724-[id number] INP/OBS CARE(HIGH) Secondary Visit Codes: [id number]-[id number] CARE PLAN 30 MINUTES URIAH NOBLE RESIDENT Sep 24, 2025 16:05
[2025-09-24] MEDS: hydrALAZINE HCL 20 MG/ML VL IV ONE (17:46)
--- NOTE | 2025-09-24 23:28 | DVHPN2 ---
Subjective DOS: 09/24/2025 Patient seen and examined at bedside. On supplemental oxygen Overnight events reviewed. Changes from previous H/P or p: No Changes Eyes: No Pain, No Vision change, No Conjunctivae inflammation, No Eyelid inflammation, No Other, No Redness ENT: No Ear pain, No Ear discharge, No Nose pain, No Nose discharge, No Nose congestion, No Mouth pain, No Mouth swelling, No Throat pain, No Throat swelling, No Other Cardiovascular: Chest Pain Respiratory: Shortness of breath, Other Gastrointestinal: No Nausea, No Vomiting, No Abdominal Pain, No Diarrhea, No Constipation, No Melena, No Hematochezia, No Other Genitourinary: Other Musculoskeletal: other Skin: Other Objective Vitals Vital Signs Date Time Temp Pulse Resp B/P (MAP) Pulse Ox O2 Delivery O2 Flow Rate FiO2 09/24/25 21:00 97.0 76 18 123/53 (76) 91 97.0 09/24/25 19:34 3.0 32 09/24/25 19:23 Nasal Cannula Intake/Output Intake and Output 09/24/25 07:00 Intake Total 480 ml Output Total 150 ml Balance 330 ml Intake Oral 480 ml Output Urine Total 150 ml # Bowel Movements 1 Exam Gen.: Patient lying in bed in no apparent distress. On supplemental oxygen. Head: Normocephalic, atraumatic. Eyes: EOMI/PERRLA. Ears: Normal hearing. Normal anatomy. Neck/trachea: Trachea midline, supple. Nose: Normal external anatomy. Mouth: Moist mucous membranes. Chest: Decreased air entry bilaterally. No wheezing or rhonchi. Cardiovascular: Positive S1, positive S2. Regular rate and rhythm. Abdomen: Positive bowel sounds in all 4 quadrants. Soft, non-tender, non- distended. : Deferred. Rectal: Deferred. Skin: Warm, dry. Intact. Extremities: 2+ radial pulses bilaterally. No lower extremity edema. Neuro: Awake, alert, oriented x3. No gross motor or sensory deficits. Cranial nerves II through XII intact. Gait not assessed. Medications Current Medications Medications Dose Ordered Sig/Adri Route Start Time Stop Time Status Last Admin Dose Admin Nitroglycerin 0.4 mg Q5MINP PRN SL 08/20/25 23:15 Hold Levalbuterol HCl 1.25 mg Q6HR NEB 09/09/25 12:00 09/24/25 07:17 1.25 MG Acetylcysteine 100 mg Q6HR NEB 09/09/25 12:00 09/24/25 07:17 100 MG Ipratropium [place] 0.5 mg Q6HR NEB 09/09/25 12:00 09/24/25 07:17 0.5 MG Heparin Sodium (Porcine) 5,000 units Q12HR SC 09/12/25 22:00 09/24/25 21:16 5,000 UNITS Albumin Human 100 ml @ 100 mls/hr PRN PRN IV 09/13/25 07:00 09/15/25 11:23 100 MLS/HR Bumetanide 2 mg DAILY IV 09/16/25 14:00 09/24/25 09:55 2 MG Ondansetron HCl 4 mg Q4HPRN PRN IV 09/18/25 05:45 09/20/25 14:34 4 MG Amino Acid Protein 30 ml Q6HR PO 09/20/25 00:00 09/24/25 12:19 30 ML Sildenafil Citrate 20 mg TID@08,14,20 PO 09/20/25 08:00 09/24/25 20:16 20 MG Enteral Nutritional Formula 240 ml BIDWM PO 09/21/25 18:00 09/24/25 08:07 240 ML Lidocaine 1 patch DAILY TOP 09/23/25 10:00 09/24/25 09:55 1 PATCH Meropenem 50 ml @ 17 mls/hr HS IV 09/23/25 14:15 09/24/25 21:16 17 MLS/HR Laboratory Results Laboratory Tests 09/24/25 10:17 Chemistry Test 09/24/25 10:17 Calcium Level 9.5 mg/dL (8.7-10.4) Urinalysis Test 08/22/25 11:43 08/22/25 12:52 09/22/25 16:00 Urine Hyaline Casts Mod /lpf (0 - 2) Urine Mucus Few (None Seen) Urine Protein/Creatinine Ratio 4.08 Urine Total Protein 204.4 mg/dL (1-14) H Urine Creatinine 52.93 mg/dL (30.0-125.0) Urine Sodium 114 mmol/L (40-220) Urine Color Light-brown (Yellow) Urine Clarity Turbid (Clear) H Urine pH 7.5 (5.0-9.0) Urine Specific [place] 1.018 (1.001-1.035) Urine Protein 3+ (Negative) H Urine Ketones Negative (Negative) Urine Blood 3+ /uL (Negative) H Urine Nitrite Negative (Negative) Urine Bilirubin Negative (Negative) Urine Urobilinogen Normal mg/dL (Negative) Urine Leukocyte Esterase 3+ /uL (Negative) Urine RBC 1462 /hpf (0 - 4) Urine WBC Clumps Present /hpf (None Seen) Urine Microscopic WBC 311 /HPF (0-5) H Urine Squamous Epithelial Cells None seen /hpf (<5) Urine Bacteria None seen /hpf (None Seen) Urine Glucose 2+ mg/dL (Normal) H Microbiology Microbiology Date/Time Source Procedure Growth Status 09/23/25 19:01 Blood Blood Culture - Preliminary NO GROWTH AFTER 24 HOURS OF INCUBATION. Resulted 09/22/25 16:00 Voided Urine Urine Culture - Preliminary Resulted 08/22/25 08:06 Nose MRSA Screen - Final Complete Assessment/Plan Assessment/Plan Impression: Acute hypoxic respiratory failure Acute hypercapnic respiratory failure Dependence on supplemental oxygen Pulmonary edema Pulmonary hypertension Metabolic acidosis Acute renal failure Morbid obesity Events: Patient remains on supplemental oxygen On 3 LPM NC Taper O2 as tolerated HD per Nephrology - s/p hemodialysis on 09/22/25 Nephrology recs appreciated Blood pressure control - BP was noted to be elevated today. Note, patient is refusing medication and blood draws - patient educated. Continue IV antibiotics. Blood cultures from 09/15/2025 show Gram-positive cocci in clusters, coagulase negative Staphylococcus Repeat blood cultures show contaminant - monitor Monitor WBC Continue bronchodilators Mucomyst Sildenafil TID for pulmonary hypertension. Femoral Frank catheter was removed - concern as cause of elevated WBC Monitor temperatures Continue to monitor platelets Continue physical therapy Diurese with Bumex IVP Maintain euvolemia Monitor renal function Monitor electrolytes, supplement as necessary Monitor urine output [place] for ins and outs. F/u with IR on Friday for tunneled catheter placement. Anxiolytic PRN Labs and imaging reviewed. Rest of plan as noted below. Plan: S/p extubation on 09/07/25 On supplemental oxygen Titrate to keep O2 sats above 90%. Continue antibiotics. Continue bronchodilators Mucomyst Pressors as necessary for hemodynamic support Titrate to keep mean arterial pressure greater than 65 mmHg. Hemodialysis per Nephrology Monitor renal function Monitor electrolytes. Supplement as necessary. Monitor ins and outs. Recommend diet and lifestyle modifications for weight reduction Obesity complicates all care GI prophylaxis. DVT prophylaxis. Prognosis: Poor given patient's multiple co-morbidities. Rest of plan per hospitalist and other consultants. Thank you, Dr. Mike Zheng, for allowing me to participate in this patient's care. Further recommendations will depend on the patient's clinical course. Please do not hesitate to contact me if you have any questions or concerns. This medical document was created using an electronic medical record system with [employer] dictation system. Although these documentations are being carefully reviewed, there may still be some phonetic and typographical changes. The errors are purely typographical, due to imperfection on the software program, and do not reflect any compromise in the patient's medical care. Plan discussed with: Patient, Other (RN) Visit Coding Pulmonary Billing Provider: RAVI SABA MD Date of Service if different f: Sep 24, 2025 Common Visit Codes: [id number] INP/OBS CARE(HIGH) RAVI SABA MD Sep 24, 2025 23:28
[2025-09-25] VITALS (15 sets, daily range): BP systolic 97–125; BP diastolic 42–74; PULSE 82–102; RESP 14–18; TEMP 97.3–98.9; O2SAT 93–100
[2025-09-25] MEDS: SODIUM CHL 0.9% 1000 ML BAG XX ONE (08:13)
[2025-09-25] MEDS: EPOETIN ALFA-EPBX 10,000 UNIT/1ML VIAL SC ONE (08:13)
--- NOTE | 2025-09-25 09:23 | DVHPNRES ---
Progress Note Date Seen: Sep 25, 2025 Resident Creating Document: KATIE MCKINNEY RESIDENT Has the PT tested + for MRSA If YES, has PT been informed?: No Medical Necessity Reason Pt with a Central, PICC or Fol: Yes The following are medically ne: Meng Catheter Reason for meng catheter: Strict I&O Subjective Review of Systems Ms. Marin is a 75-year-old female with prior medical history of HFpEF, COPD with home oxygen, gout, anxiety, type 2 diabetes mellitus, hyperlipidemia, hypertension, and PAD, who bas brought to the [facility] by EMS with chief complaint of shortness of breath and back and midsternal non-radiating chest pain. Daughter reported progressively worsening shortness of breath for the last 2 weeks associated with general malaise and orthopnea, describing very wet coughing sounds when her mother lays flat. She states that her mother began complaining of worsening shortness of breath associated with non-radiating midsternal chest pain which prompted her to call EMS. Per record, on seen she was saturating 74%, she was placed on CPAP with inspiration increasing to 88% on route to the emergency department. On evaluation in the ED, patient was afebrile, slightly hypertensive, and tachypneic, saturating 81% which she was placed on BiPAP. Initial labs significant for leukocytosis of 11.3, with elevated hematocrit, and thrombocytopenia, hyperkalemia, creatinine 4.09, BUN 46, and ABG significant for respiratory acidosis, troponins are negative, BNP 2515.41. Serology was positive for influenza A and B. Chest x-ray showed moderate to severe pulmonary edema. Patient further deteriorated requiring intubation for respiratory distress. She was started on IV Lasix, IV methylprednisolone, hyperkalemia protocol, bicarbonate drip, and nitroglycerin drip. Prior Medical history: CHF, COPD, gout, anxiety, type 2 diabetes mellitus, hyperlipidemia, hypertension, PAD, pulmonary hypertension Previous surgical history: Left leg stenting for PAD Allergies: Denies Social history: Daughter reports the patient smokes cigarettes with cessation approximately 20 years ago Home medications: Allopurinol, insulin, gabapentin, simvastatin, tadalafil 09/25/2025: Patient seen and examined at bedside, underwent hemodialysis yesterday. Currently remains on O2 via NC 3 L saturating 100%. Detailed discussion held with patient and patient's daughter at bedside, patient noted to have multiple complaints regarding her care overnight, informed patient's RN Daniela as well as school community relations coordinator of patient's concerns. All of patient's questions were answered and concerns were addressed, detailed explanation of plan of care and barriers to discharge were explained to the patient. Reconsulted interventional Radiology for tunneled hemodialysis catheter placement, 3 sets of negative blood cultures resulted. Objective vital signs Vital Sign Date Time Temp Pulse Resp B/P (MAP) Pulse Ox O2 Delivery O2 Flow Rate FiO2 09/25/25 06:20 85 16 100 09/25/25 06:11 Nasal Cannula 3.0 09/25/25 06:11 32 09/25/25 05:00 97.9 109/69 (82) 97.9 Total Intake and Output 09/24/25 09/24/25 09/25/25 15:00 23:00 07:00 Intake Total 500 ml 300 ml Output Total 150 ml 25 ml Balance 350 ml 275 ml medications Current Medications Medications Dose Ordered Sig/Adri Route Start Time Stop Time Status Last Admin Dose Admin Nitroglycerin 0.4 mg Q5MINP PRN SL 08/20/25 23:15 Hold Levalbuterol HCl 1.25 mg Q6HR NEB 09/09/25 12:00 09/25/25 06:11 1.25 MG Acetylcysteine 100 mg Q6HR NEB 09/09/25 12:00 09/25/25 06:11 100 MG Ipratropium [place] 0.5 mg Q6HR NEB 09/09/25 12:00 09/25/25 06:11 0.5 MG Heparin Sodium (Porcine) 5,000 units Q12HR SC 09/12/25 22:00 09/24/25 21:16 5,000 UNITS Albumin Human 100 ml @ 100 mls/hr PRN PRN IV 09/13/25 07:00 09/15/25 11:23 100 MLS/HR Bumetanide 2 mg DAILY IV 09/16/25 14:00 09/24/25 09:55 2 MG Ondansetron HCl 4 mg Q4HPRN PRN IV 09/18/25 05:45 09/20/25 14:34 4 MG Amino Acid Protein 30 ml Q6HR PO 09/20/25 00:00 09/24/25 18:00 30 ML Sildenafil Citrate 20 mg TID@08,14,20 PO 09/20/25 08:00 09/25/25 08:14 20 MG Enteral Nutritional Formula 240 ml BIDWM PO 09/21/25 18:00 09/25/25 08:13 240 ML Lidocaine 1 patch DAILY TOP 09/23/25 10:00 09/24/25 09:55 1 PATCH Meropenem 50 ml @ 17 mls/hr HS IV 09/23/25 14:15 09/24/25 21:16 17 MLS/HR Examination General: Patient was A&O x4. Agitated. Following commands. HEENT: Nystagmus POA Respiratory/pulmonary: Normal breath sounds heard Cardiovascular: Normal heart sounds S1 and S2 with no associated murmurs. Abdomen: Abdomen nondistended, normal bowel sounds. Extremities: Dry, crusted planter surface of bilateral feet. SCDs present bilaterally. Sacrum: Healing sacral flap (POA) from previous sacral ulcer laboratory and microbiology Laboratory Tests 09/24/25 10:17 Test 09/24/25 10:17 Range/Units Serum Glucose 94 74-106 mg/dL Microbiology Date/Time Source Procedure Growth Status 09/23/25 19:01 Blood Blood Culture - Preliminary NO GROWTH AFTER 24 HOURS OF INCUBATION. Resulted 09/22/25 16:00 Voided Urine Urine Culture - Preliminary Resulted 08/22/25 08:06 Nose MRSA Screen - Final Complete Labs and/or images reviewed: Labs reviewed by me, Image(s) reviewed by me Problem List/Assessment/Plan Problem List/Assessment/Plan # Right eye nystagmus Per daughter, present since Cardiovascular # Acute on chronic HFpEF (improving) # Pulmonary Edema BNP normalized; OA Chest xray 08/20/2025: Moderate to severe pulmonary edema Chest xray 08/21/2025: Cardiomegaly with pulmonary venous congestion and edema Echocardiogram 01/14/2022: EF > 60%, Limited echo windows, mild TR, MR Echocardiogram 10/22/2024: Technically good study sinus rhythm. Concentric LVH with left atrial enlargement. Mild aortic sclerosis. Mild thickening of the anterior and posterior mitral leaflets. Valves appear to be structurally normal. Left ventricular function is preserved at 60% with normal RV function. Cardiology: Pending echo, considered R/LHC if inconclusive , discontinue bumex drip Per nephrology: Trial of bumex + albumin and D5W 75 cc/hour. Bumex drip discontinued by cardiology. D5W has been discontinued due to resolution of hypernatremia Lasix discontinued Repeat CXR from 09/13/2025 shows pulmonary vascular congestion reduced in comparison to previous X-rays Chest x-ray from 09/15/2025 shows stable pulmonary vascular congestion and small pleural effusions Continue Bumex 2 mg daily per Nephrology (see below) #Hypertension Continue Amlodipine 10 mg NG daily, Hydralazine 50 mg q8 #CAD Coronary angiogram done on 08/30/2025: Left main, LAD and circumflex are patent, RCA patent, EF is 50-55% #Severe pulmonary hypertension R/L heart catheterization 08/30/2025: RA pressure 18 mmHg, RV pressure 62/16 mmHg, pulmonary artery pressure 66/18 mmHg, capillary wedge pressure: 17 mmHg Per cardiology: Sildenafil 20mg NG TID, testing testing 40 but this was lowered Respiratory Ventilator Intubated (08/21/2025) Extubated (09/07/2025) # Acute hypercapnic respiratory failure secondary to pulmonary edema s/p Extubation # Acute hypoxic respiratory failure # Respiratory acidosis (resolving) Discontinued oxygen supplementation with Oxymizer Med neb treatment with Ipratropium, levalbuterol Mucomyst 100 mg q 8 hours PT evaluation requested Continue oxygen supplementation, currently on 5 L oxygen. Continue tapering as tolerated. # Acute COPD exacerbation Methylprednisolone 40 mg IV, discontinued Medneb treatment with Ipratropium medneb, Albuterol medneb Ceftriaxone 1 g IV daily (discontinued) # Community acquired pneumonia due to Gram-positive/Gram-negative pneumonia/ Influenza A and B POA Tamiflu 30 mg BID suspension, discontinued Discontinued Zosyn, Discontinued vancomycin. Continue IV Ceftriaxone Gastrointestinal NG tube reinserted (09/13/2025); failed swallow evaluation # Peptic ulcer prophylaxis Pantoprazole 40 mg IV daily # Constipation Lactulose 15 mL Genitourinary Replace Meng catheter (09/12/25) Replace Meng catheter 09/18/2025 # Possible Complicated UTI, resolving UA positive for UTI Ceftriaxone 1 g IV daily, discontinued Previously switched cefepime to vancomycin and Zosyn Nephrology # COLE on CKD likely hemodynamically mediated/ VMN # ESRD requiring intermittent HD Supportive management with IV fluids given Nephrology on board, recommended hemodialysis Patient initially had dialysis catheter in the right femoral region, removed. Interventional radiology on board, tunneled catheter placement deferred till confirmation with negative blood cultures. Kidney ultrasound shows no acute abnormality Nephrology on board, recommended hemodialysis, richy Marie in the interim. Continue tube feeding, monitor fluid balances, strict I&Os On Hemodialysis On Bumex 2 mg IV (started on 09/16/2025) per nephrology Radiology consulted for tunneled hemodialysis catheter # Hyperkalemia, resolved Per nephrology: trial of forced diuresis to enhance potassium excretion, serial chemistry panels, IV bicarbonate infusion, and avoidance of IV contrast if able. # Hypokalemia Supplemented # Acute metabolic acidosis # Nephrotic syndrome secondary to underlying diabetic nephropathy, possible # Hypernatremia due to insensible water loss D5W, discontinued Infectious disease # Sepsis POA d/t below # Influenza A and B Pneumonia POA Serology positive for Influenza A & B Tamiflu 30 mg BID suspension, discontinued # Possible Complicated UTI, present on admission Ceftriaxone 1 g IV daily, discontinued Discontinued cefepime; discontinue vancomycin. Discontinued Zosyn. Discontinued IV Rocephin. Ordered urine analysis, repeat urine culture Continue IV meropenem (renally dosed) Repeat blood culture shows no growth Patient noncompliant # Bacteremia versus contamination due to Staphylococcus epidermidis Repeat blood culture shows no growth, positive results on 1 set likely due to contamination Hem/oncology # Thrombocytopenia, resolved # Microcytic, hypochromic anemia # Heparin induced thrombocytopenia type 1, possible Intermediate possibility of HIT on 4Ts score Monitor CBC # Eosinophilia Switched Zosyn to IV Rocephin. Eosinophil continues to trend down. Monitor CBC Endocrine # Type 2 diabetes mellitus Mild Sliding scale Monitor blood glucose # Class 1 Obesity BMI 30 Dermatology # Generalized itching likely due to uremia Benadryl PO prn DVT prophylaxis: Heparin 5000 U BID PUD prophylaxis: Pantoprazole 40 mg IV daily Lines: - L femoral Central line 08/20/2025 - discontinued on 08/29/2025 - L internal jugular central line 08/29/2025 09/08/2025 - Meng catheter 08/20/2025 - ET tube: 08/21/2025 (extubated 09/07/2025) - Femoral Frank catheter: 08/30/2025- 09/10/2025 - Mid line: 09/08/2025 - Frank catheter 09/12/25 Nutrition: Nepro discontinued Continue p.o. nutrition; renal mechanical soft diet PO Nepro b.i.d. Goals of care discussed with nurses, Daughters on bedside Goals of care discussed at bedside for more than 45 minutes. Plan discussed with Dr. Martell Plan discussed with: Patient, Daughter, Other (RN Daniela) My Orders My Orders Orders - KATIE MCKINNEY RESIDENT Procedure Category Date Status Time Complete Blood Count LAB 09/26/25 Verified 04:00 Basic Metabolic Panel LAB 09/26/25 Verified 04:00 * Radiologist Consult CONS 09/25/25 Transmitted 09:21 Dietary Evaluation Review Comments: Nutrition Recommendation: 1) EN Nepro Carbsteady @ 30ml/hr x 24hr (goal) along with Pro-stat 1 pk BID. Water flush 50ml Q6H if allowed, adjust PRN. TF at goal volume along with propofol & Pro-stat provide 1777 kcal (100%), 89 gm protein (83%), and 723 ml free water(including flush). 2) TPN if NPO >7 days 3) Monitor NPO status, lab values, weight trend, and I/O Expected Outcomes/Goals: Intake to meet >75% estimated needs Lab values to improve FU 2-3 days Visit Coding STANDARD RES Billing Provider: RAVI MARTELL MD Date of Service if different f: Sep 25, 2025 Common Visit Codes: 55918-[id number] CARE 30-74 MIN KATIE MCKINNEY RESIDENT Sep 25, 2025 09:23
--- NOTE | 2025-09-25 10:51 | MEDREC ---
[facility] Intervention Section I [facility] Intervention: Deescalate AB based on CS (PLEASE RE-CONSIDER THE NEED TO COVER FOR ESBL / PSEUDOMONAS - PLEASE CONSIDER DISCONTINUATION / DE-ESCALATION BASED ON CULTURE RESULTS) WILLARD LOPEZ PHARMACIST Sep 25, 2025 10:51
--- NOTE | 2025-09-25 11:50 | DVHPN2 ---
Progress Note Date Seen: Sep 25, 2025 Has the PT tested + for MRSA If YES, has PT been informed?: No Medical Necessity Reason Pt with a Central, PICC or Fol: Yes The following are medically ne: Meng Catheter Reason for meng catheter: Strict I&O Subjective Review of Systems: RESPIRATORY:Abnormal Other Systems: Patient seen and examined by myself today in follow-up, patient not O2 nasal can Objective vital signs Vital Sign Date Time Temp Pulse Resp B/P (MAP) Pulse Ox O2 Delivery O2 Flow Rate FiO2 09/25/25 11:26 100 Nasal Cannula 3.0 09/25/25 11:26 32 09/25/25 10:44 134/64 09/25/25 09:00 98.9 87 17 98.9 Total Intake and Output 09/24/25 09/24/25 09/25/25 15:00 23:00 07:00 Intake Total 500 ml 300 ml Output Total 150 ml 25 ml Balance 350 ml 275 ml medications Current Medications Medications Dose Ordered Sig/Adri Route Start Time Stop Time Status Last Admin Dose Admin Nitroglycerin 0.4 mg Q5MINP PRN SL 08/20/25 23:15 Hold Levalbuterol HCl 1.25 mg Q6HR NEB 09/09/25 12:00 09/25/25 06:11 1.25 MG Acetylcysteine 100 mg Q6HR NEB 09/09/25 12:00 09/25/25 06:11 100 MG Ipratropium [place] 0.5 mg Q6HR NEB 09/09/25 12:00 09/25/25 06:11 0.5 MG Heparin Sodium (Porcine) 5,000 units Q12HR SC 09/12/25 22:00 09/25/25 10:33 5,000 UNITS Albumin Human 100 ml @ 100 mls/hr PRN PRN IV 09/13/25 07:00 09/15/25 11:23 100 MLS/HR Bumetanide 2 mg DAILY IV 09/16/25 14:00 09/25/25 10:44 2 MG Ondansetron HCl 4 mg Q4HPRN PRN IV 09/18/25 05:45 09/20/25 14:34 4 MG Amino Acid Protein 30 ml Q6HR PO 09/20/25 00:00 09/24/25 18:00 30 ML Sildenafil Citrate 20 mg TID@08,14,20 PO 09/20/25 08:00 09/25/25 08:14 20 MG Enteral Nutritional Formula 240 ml BIDWM PO 09/21/25 18:00 09/25/25 08:13 240 ML Lidocaine 1 patch DAILY TOP 09/23/25 10:00 09/25/25 10:33 1 PATCH Meropenem 50 ml @ 17 mls/hr HS IV 09/23/25 14:15 09/24/25 21:16 17 MLS/HR Examination: LUNGS:Abnormal, CVS:Normal, MSK:Abnormal laboratory and microbiology Laboratory Tests 09/24/25 10:17 Test 09/24/25 10:17 Range/Units Serum Glucose 94 74-106 mg/dL Microbiology Date/Time Source Procedure Growth Status 09/23/25 19:01 Blood Blood Culture - Preliminary NO GROWTH AFTER 24 HOURS OF INCUBATION. Resulted 09/22/25 16:00 Voided Urine Urine Culture - Preliminary Resulted 08/22/25 08:06 Nose MRSA Screen - Final Complete Problem List/Assessment/Plan Problem List/Assessment/Plan ESRD requiring intermittent HD Acute hypoxic respiratory failure, extubated Community-acquired pneumonia Diabetes mellitus type 2 Nephrotic syndrome secondary to underlying diabetic nephropathy Hyperkalemia Hypernatremia due to insensible water loss Recommendations Next hemodialysis 09/27 Epogen 10,000 subQ 3 times weekly Hyperkalemia resolved Hypernatremia appropriately resolved Strict I&Os kidney ultrasound reported within normal limit IV antibiotics Discontinue amlodipine due to low blood pressure Avoid nephrotoxic medications We will continue to follow Plan discussed with: Patient Dietary Evaluation Review Comments: Nutrition Recommendation: 1) EN Nepro Carbsteady @ 30ml/hr x 24hr (goal) along with Pro-stat 1 pk BID. Water flush 50ml Q6H if allowed, adjust PRN. TF at goal volume along with propofol & Pro-stat provide 1777 kcal (100%), 89 gm protein (83%), and 723 ml free water(including flush). 2) TPN if NPO >7 days 3) Monitor NPO status, lab values, weight trend, and I/O Expected Outcomes/Goals: Intake to meet >75% estimated needs Lab values to improve FU 2-3 days JEANNE WHITE MD Sep 25, 2025 11:49
[2025-09-25 12:16] LABS: Hematocrit 36.7 % (36.0-46.0); Hemoglobin 10.8 g/dL (12.2-16.2); Mean Corpuscular Hemoglobin 19.5 pg (28.0-32.0); Mean Corpuscular Volume 66.3 fL (80.0-100.0); Nucleated Red Blood Cells % 0.1 %
[2025-09-25 12:23] LABS: Albumin 3.9 g/dL (3.2-4.8); Alkaline Phosphatase 82 U/L (46-116); Anion Gap 11 (5-15); BUN/Creatinine Ratio 4.4 (10.0-20.0); Calcium 9.6 mg/dL (8.7-10.4); Carbon Dioxide 28 mmol/L (20-31); Chloride 99 mmol/L (98-107); Glucose 95 mg/dL (74-106); Potassium 4.0 mmol/L (3.5-5.1); Sodium 138 mmol/L (136-145); Total Protein 7.3 g/dL (5.7-8.2)
[2025-09-25 12:24] LABS: Bilirubin, Total 0.3 mg/dL (0.2-1.0)
[2025-09-25 12:31] LABS: Alanine Aminotransferase < 9 U/L (7-40); Blood Urea Nitrogen 27 mg/dL (9-23)
[2025-09-25 12:40] LABS: Anisocytosis Moderate
--- NOTE | 2025-09-25 23:26 | DVHPN2 ---
Subjective DOS: 09/25/2025 Patient seen and examined at bedside. On supplemental oxygen Overnight events reviewed. Changes from previous H/P or p: No Changes Eyes: No Pain, No Vision change, No Conjunctivae inflammation, No Eyelid inflammation, No Other, No Redness ENT: No Ear pain, No Ear discharge, No Nose pain, No Nose discharge, No Nose congestion, No Mouth pain, No Mouth swelling, No Throat pain, No Throat swelling, No Other Cardiovascular: Chest Pain Respiratory: Shortness of breath, Other Gastrointestinal: No Nausea, No Vomiting, No Abdominal Pain, No Diarrhea, No Constipation, No Melena, No Hematochezia, No Other Genitourinary: Other Musculoskeletal: other Skin: Other Objective Vitals Vital Signs Date Time Temp Pulse Resp B/P (MAP) Pulse Ox O2 Delivery O2 Flow Rate FiO2 09/25/25 21:00 98.1 86 17 104/61 (75) 99 98.1 09/25/25 19:02 Nasal Cannula* 3 32 Intake/Output Intake and Output 09/25/25 07:00 Intake Total 800 ml Output Total 175 ml Balance 625 ml Intake Oral 750 ml IV Total 50 ml Output Urine Total 175 ml Exam Gen.: Patient lying in bed in no apparent distress. On supplemental oxygen. Head: Normocephalic, atraumatic. Eyes: EOMI/PERRLA. Ears: Normal hearing. Normal anatomy. Neck/trachea: Trachea midline, supple. Nose: Normal external anatomy. Mouth: Moist mucous membranes. Chest: Decreased air entry bilaterally. No wheezing or rhonchi. Cardiovascular: Positive S1, positive S2. Regular rate and rhythm. Abdomen: Positive bowel sounds in all 4 quadrants. Soft, non-tender, non- distended. : Deferred. Rectal: Deferred. Skin: Warm, dry. Intact. Extremities: 2+ radial pulses bilaterally. No lower extremity edema. Neuro: Awake, alert, oriented x3. No gross motor or sensory deficits. Cranial nerves II through XII intact. Gait not assessed. Medications Current Medications Medications Dose Ordered Sig/Adri Route Start Time Stop Time Status Last Admin Dose Admin Nitroglycerin 0.4 mg Q5MINP PRN SL 08/20/25 23:15 Hold Levalbuterol HCl 1.25 mg Q6HR NEB 09/09/25 12:00 09/25/25 18:00 1.25 MG Acetylcysteine 100 mg Q6HR NEB 09/09/25 12:00 09/25/25 18:00 100 MG Ipratropium [place] 0.5 mg Q6HR NEB 09/09/25 12:00 09/25/25 18:00 0.5 MG Heparin Sodium (Porcine) 5,000 units Q12HR SC 09/12/25 22:00 09/25/25 21:11 5,000 UNITS Albumin Human 100 ml @ 100 mls/hr PRN PRN IV 09/13/25 07:00 09/15/25 11:23 100 MLS/HR Bumetanide 2 mg DAILY IV 09/16/25 14:00 09/25/25 10:44 2 MG Ondansetron HCl 4 mg Q4HPRN PRN IV 09/18/25 05:45 09/20/25 14:34 4 MG Amino Acid Protein 30 ml Q6HR PO 09/20/25 00:00 09/25/25 18:00 30 ML Sildenafil Citrate 20 mg TID@08,14,20 PO 09/20/25 08:00 09/25/25 20:57 20 MG Enteral Nutritional Formula 240 ml BIDWM PO 09/21/25 18:00 09/25/25 18:00 240 ML Lidocaine 1 patch DAILY TOP 09/23/25 10:00 09/25/25 10:33 1 PATCH Meropenem 50 ml @ 17 mls/hr HS IV 09/23/25 14:15 09/25/25 21:08 17 MLS/HR Laboratory Results Laboratory Tests 09/25/25 11:42 Chemistry Test 09/25/25 11:42 Albumin 3.9 g/dL (3.2-4.8) Calcium Level 9.6 mg/dL (8.7-10.4) Total Protein 7.3 g/dL (5.7-8.2) LFT Test 09/25/25 11:42 Alanine Aminotransferase (ALT) < 9 U/L (7-40) Alkaline Phosphatase 82 U/L (46-116) Aspartate Amino Transferase (AST) 13 U/L (13-40) Total Bilirubin 0.3 mg/dL (0.2-1.0) Urinalysis Test 08/22/25 11:43 08/22/25 12:52 09/22/25 16:00 Urine Hyaline Casts Mod /lpf (0 - 2) Urine Mucus Few (None Seen) Urine Protein/Creatinine Ratio 4.08 Urine Total Protein 204.4 mg/dL (1-14) H Urine Creatinine 52.93 mg/dL (30.0-125.0) Urine Sodium 114 mmol/L (40-220) Urine Color Light-brown (Yellow) Urine Clarity Turbid (Clear) H Urine pH 7.5 (5.0-9.0) Urine Specific [place] 1.018 (1.001-1.035) Urine Protein 3+ (Negative) H Urine Ketones Negative (Negative) Urine Blood 3+ /uL (Negative) H Urine Nitrite Negative (Negative) Urine Bilirubin Negative (Negative) Urine Urobilinogen Normal mg/dL (Negative) Urine Leukocyte Esterase 3+ /uL (Negative) Urine RBC 1462 /hpf (0 - 4) Urine WBC Clumps Present /hpf (None Seen) Urine Microscopic WBC 311 /HPF (0-5) H Urine Squamous Epithelial Cells None seen /hpf (<5) Urine Bacteria None seen /hpf (None Seen) Urine Glucose 2+ mg/dL (Normal) H Microbiology Microbiology Date/Time Source Procedure Growth Status 09/23/25 19:01 Blood Blood Culture - Preliminary NO GROWTH AFTER 48 HOURS OF INCUBATION. Resulted 09/22/25 16:00 Voided Urine Urine Culture - Preliminary Resulted 08/22/25 08:06 Nose MRSA Screen - Final Complete Assessment/Plan Assessment/Plan Impression: Acute hypoxic respiratory failure Acute hypercapnic respiratory failure Dependence on supplemental oxygen Pulmonary edema Pulmonary hypertension Metabolic acidosis Acute renal failure Morbid obesity Events: Patient remains on supplemental oxygen On 3 LPM NC Taper O2 as tolerated HD per Nephrology - awaiting tunneled cath placement by IR. Nephrology recs appreciated Blood pressure control - BP was noted to be elevated today. Note, patient is refusing medication and blood draws - patient educated. Continue IV antibiotics - meropenem day #12. Blood cultures from 09/15/2025 show Gram-positive cocci in clusters, coagulase negative Staphylococcus Repeat blood cultures show contaminant - monitor Monitor WBC Continue bronchodilators Mucomyst Sildenafil TID for pulmonary hypertension. Femoral Frank catheter was removed - concern as cause of elevated WBC Monitor temperatures Continue to monitor platelets Continue physical therapy Diurese with Bumex IVP Maintain euvolemia Monitor renal function Monitor electrolytes, supplement as necessary Monitor urine output [place] for ins and outs. F/u with IR on Friday for tunneled catheter placement. Anxiolytic PRN Labs and imaging reviewed. Rest of plan as noted below. Plan: S/p extubation on 09/07/25 On supplemental oxygen Titrate to keep O2 sats above 90%. Continue antibiotics. Continue bronchodilators Mucomyst Pressors as necessary for hemodynamic support Titrate to keep mean arterial pressure greater than 65 mmHg. Hemodialysis per Nephrology Monitor renal function Monitor electrolytes. Supplement as necessary. Monitor ins and outs. Recommend diet and lifestyle modifications for weight reduction Obesity complicates all care GI prophylaxis. DVT prophylaxis. Prognosis: Poor given patient's multiple co-morbidities. Rest of plan per hospitalist and other consultants. Thank you, Dr. Mike Zheng, for allowing me to participate in this patient's care. Further recommendations will depend on the patient's clinical course. Please do not hesitate to contact me if you have any questions or concerns. This medical document was created using an electronic medical record system with [employer] dictation system. Although these documentations are being carefully reviewed, there may still be some phonetic and typographical changes. The errors are purely typographical, due to imperfection on the software program, and do not reflect any compromise in the patient's medical care. Plan discussed with: Patient, Other (MARU Saunders) Visit Coding Pulmonary Billing Provider: RAVI SABA MD Date of Service if different f: Sep 25, 2025 Common Visit Codes: 81107-[id number] INP/OBS CARE(HIGH) RAVI SABA MD Sep 25, 2025 23:26
[2025-09-26] VITALS (19 sets, daily range): BP systolic 110–157; BP diastolic 47–77; PULSE 74–92; RESP 10–19; TEMP 97.5–98.2; O2SAT 93–100
[2025-09-26 06:51] LABS: Hemoglobin 10.1 g/dL (12.2-16.2); Mean Corpuscular Volume 66.2 fL (80.0-100.0); Nucleated Red Blood Cells % 0.1 %
[2025-09-26 07:02] LABS: Anion Gap 12 (5-15); Carbon Dioxide 27 mmol/L (20-31); Chloride 98 mmol/L (98-107); Hematocrit 34.5 % (36.0-46.0); Mean Corpuscular Hemoglobin 19.5 pg (28.0-32.0); Potassium 3.9 mmol/L (3.5-5.1); Sodium 137 mmol/L (136-145)
[2025-09-26 07:03] LABS: Calcium 9.5 mg/dL (8.7-10.4)
[2025-09-26 07:08] LABS: BUN/Creatinine Ratio 4.4 (10.0-20.0); Glucose 90 mg/dL (74-106)
[2025-09-26 07:17] LABS: Blood Urea Nitrogen 33 mg/dL (9-23)
[2025-09-26 08:11] LABS: Anisocytosis Moderate
--- NOTE | 2025-09-26 10:24 | DVHPN2 ---
Progress Note Date Seen: Sep 26, 2025 Has the PT tested + for MRSA If YES, has PT been informed?: No Medical Necessity Reason Pt with a Central, PICC or Fol: Yes The following are medically ne: Meng Catheter Reason for meng catheter: Strict I&O Subjective Changes from previous H/P or p: No Changes Objective vital signs Vital Sign Date Time Temp Pulse Resp B/P (MAP) Pulse Ox O2 Delivery O2 Flow Rate FiO2 09/26/25 06:39 74 14 100 09/26/25 06:26 Nasal Cannula* 2 09/26/25 05:00 98.2 123/73 (90) 98.2 Total Intake and Output 09/25/25 09/25/25 09/26/25 15:00 23:00 07:00 Intake Total 240 ml 350 ml Output Total 75 ml Balance 240 ml 275 ml medications Current Medications Medications Dose Ordered Sig/Adri Route Start Time Stop Time Status Last Admin Dose Admin Nitroglycerin 0.4 mg Q5MINP PRN SL 08/20/25 23:15 Hold Levalbuterol HCl 1.25 mg Q6HR NEB 09/09/25 12:00 09/26/25 06:23 1.25 MG Acetylcysteine 100 mg Q6HR NEB 09/09/25 12:00 09/26/25 06:23 100 MG Ipratropium [place] 0.5 mg Q6HR NEB 09/09/25 12:00 09/26/25 06:23 0.5 MG Heparin Sodium (Porcine) 5,000 units Q12HR SC 09/12/25 22:00 09/25/25 21:11 5,000 UNITS Albumin Human 100 ml @ 100 mls/hr PRN PRN IV 09/13/25 07:00 09/15/25 11:23 100 MLS/HR Bumetanide 2 mg DAILY IV 09/16/25 14:00 09/25/25 10:44 2 MG Ondansetron HCl 4 mg Q4HPRN PRN IV 09/18/25 05:45 09/20/25 14:34 4 MG Amino Acid Protein 30 ml Q6HR PO 09/20/25 00:00 09/25/25 18:00 30 ML Sildenafil Citrate 20 mg TID@08,14,20 PO 09/20/25 08:00 09/26/25 08:43 20 MG Enteral Nutritional Formula 240 ml BIDWM PO 09/21/25 18:00 09/26/25 08:00 240 ML Lidocaine 1 patch DAILY TOP 09/23/25 10:00 09/25/25 10:33 1 PATCH Meropenem 50 ml @ 17 mls/hr HS IV 09/23/25 14:15 09/25/25 21:08 17 MLS/HR Examination: GENERAL:Abnormal, LUNGS:Abnormal, CVS:Normal, SKIN:Normal laboratory and microbiology Laboratory Tests 09/26/25 05:34 Test 09/26/25 05:34 Range/Units Serum Glucose 90 74-106 mg/dL Microbiology Date/Time Source Procedure Growth Status 09/23/25 19:01 Blood Blood Culture - Preliminary NO GROWTH AFTER 48 HOURS OF INCUBATION. 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 Water flush 50ml Q6H if allowed, adjust PRN. TF at goal volume along with propofol & Pro-stat provide 1777 kcal (100%), 89 gm protein (83%), and 723 ml free water(including flush). 2) TPN if NPO >7 days 3) Monitor NPO status, lab values, weight trend, and I/O Expected Outcomes/Goals: Intake to meet >75% estimated needs Lab values to improve FU 2-3 days KELLY DIAZ MD Sep 26, 2025 10:24
[2025-09-26] MEDS ORDERED: fentaNYL CITRATE 100 MCG/2 ML VL ONE (12:22)
[2025-09-26] MEDS ORDERED: MIDAZOLAM HCL 2MG/2ML 2ml VIAL (1mg/ml) ONE (12:22)
[2025-09-26] MEDS ORDERED: HEPARIN SODIUM (PORCINE) 5000 UNITS/ML 1ML VIAL ONE (12:22)
[2025-09-26] MEDS ORDERED: LIDOCAINE 2%HCL (LOCAL ANESTH.) INJ 20ML MDV ONE (12:23)
[2025-09-26] MEDS ORDERED: ceFAZolin 1GM/50ML 50 ML IV ONE (13:15)
[2025-09-26] MEDS: GABAPENTIN 300 MG CAP PO SCH (15:30)
--- NOTE | 2025-09-26 15:32 | DVHPN2 ---
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 HYPERKALEMIA COPD HYPERLIPIDEMIA SIGN SX COMPLEX OF NOW WITH SOB CHEST PAIN RENAL FAILURE HYPERKALEMIA RESP FAILURE REQUIRING INTUBATION vital signs Vital Sign Date Time Temp Pulse Resp B/P (MAP) Pulse Ox O2 Delivery O2 Flow Rate FiO2 09/26/25 14:30 86 11 144/76 (98) 97 09/26/25 08:00 Nasal Cannula* 3 32 09/26/25 05:00 98.2 98.2 Total Intake and Output 09/25/25 09/25/25 09/26/25 15:00 23:00 07:00 Intake Total 240 ml 350 ml Output Total 75 ml Balance 240 ml 275 ml medications Current Medications Medications Dose Ordered Sig/Adri Route Start Time Stop Time Status Last Admin Dose Admin Nitroglycerin 0.4 mg Q5MINP PRN SL 08/20/25 23:15 Hold Levalbuterol HCl 1.25 mg Q6HR NEB 09/09/25 12:00 09/26/25 11:49 1.25 MG Acetylcysteine 100 mg Q6HR NEB 09/09/25 12:00 09/26/25 11:49 100 MG Ipratropium [place] 0.5 mg Q6HR NEB 09/09/25 12:00 09/26/25 11:49 0.5 MG Heparin Sodium (Porcine) 5,000 units Q12HR SC 09/12/25 22:00 09/25/25 21:11 5,000 UNITS Albumin Human 100 ml @ 100 mls/hr PRN PRN IV 09/13/25 07:00 09/15/25 11:23 100 MLS/HR Bumetanide 2 mg DAILY IV 09/16/25 14:00 09/25/25 10:44 2 MG Ondansetron HCl 4 mg Q4HPRN PRN IV 09/18/25 05:45 09/20/25 14:34 4 MG Amino Acid Protein 30 ml Q6HR PO 09/20/25 00:00 09/25/25 18:00 30 ML Sildenafil Citrate 20 mg TID@08,14,20 PO 09/20/25 08:00 09/26/25 08:43 20 MG Enteral Nutritional Formula 240 ml BIDWM PO 09/21/25 18:00 09/26/25 08:00 240 ML Lidocaine 1 patch DAILY TOP 09/23/25 10:00 09/25/25 10:33 1 PATCH Meropenem 50 ml @ 17 mls/hr HS IV 09/23/25 14:15 09/25/25 21:08 17 MLS/HR Gabapentin 300 mg DAILY PO 09/26/25 10:30 laboratory and microbiology Laboratory Tests 09/26/25 05:34 Test 09/26/25 05:34 Range/Units Serum Glucose 90 74-106 mg/dL Problem List ORGANIC HEART DISEASE CAD HFrEF HTN 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 HYPERKALEMIA COPD HYPERLIPIDEMIA SIGN SX COMPLEX OF NOW WITH SOB CHEST PAIN RENAL FAILURE HYPERKALEMIA RESP FAILURE REQUIRING INTUBATION EXTUBATED MENINGIOMA NO CHANGE Assessment/Plan CORRECT HYPERKALEMIA CONSIDER ECHO IF INCONCLUSIVE CONSIDER L/RHC BNP 370 ABX DC BUMEX START IVF AT 100 CC/HR ADD LOKELMA K+ CORRECTED REPEAT BNP WILL PROCEED WITH L/RHC ON FRIDAY POSITIVE FOR INFLUENZA A AND B POSITIVE START WEANING PT CON IV FLUID L/RHC NL CORONARIES EF >50% LVEDP 17mmHg RHC RA 15-27mmHg RV 62/17 PA`66/ 18 PCWP 17 SEVERE PUL HYPERTENSION START REVATIO 20 MG TID HEMODIALYSIS IN AM CHEST CXR STILL WITH INFILTRATIVE PROCESS START WEAN SEDATION WITH HD SIGNIFICANT IMPROVEMENT IN LUNG EFFUSION AND INFILTRATE STOP SEDATION WEAN PT OFF VENT OTHERWISE CONSIDER TRACH CHEST CXR APPEARS TO HAVE IMPROVED SIGNIFICANTLY COMPARED TO 08/29/25 LAST RIGHT SIDED EFFUSION SIGNIFICANT CLEARING OF INTERSTITIAL INFILTRATE OFF SEDATION EXTUBATED DIALYSIS UREMIC LEUKOCYTOSIS CXR ABG RESP ACIDOSIS IMPROVED WITH LOWER O2 LEUKOCYTOSIS CONSIDER CT CHEST CXR STABLE WITH MILD IMPROVEMENT OF INFILTRATE PT REVIEWED LABS: NA, K, AND CL ARE NORMAL Dietary Evaluation Review Comments: Nutrition Recommendation: 1) EN Nepro Carbsteady @ 30ml/hr x 24hr (goal) along with Pro-stat 1 pk BID. Water flush 50ml Q6H if allowed, adjust PRN. TF at goal volume along with propofol & Pro-stat provide 1777 kcal (100%), 89 gm protein (83%), and 723 ml free water(including flush). 2) TPN if NPO >7 days 3) Monitor NPO status, lab values, weight trend, and I/O Expected Outcomes/Goals: Intake to meet >75% estimated needs Lab values to improve FU 2-3 days Plan discussed with: Patient RAMIN GARCIA MD Sep 26, 2025 15:32
--- NOTE | 2025-09-26 21:07 | DVH ---
XY Insertion of Venous Cath, HISTORY: HD CATH PL PROCEDURE: Informed consent was obtained. The patient was placed supine on the interventional table. A limited localization ultrasound of the right neck base was obtained. The right neck base and upper chest were prepped with chlorhexidine which was allowed to dry and draped in the usual sterile fashion. Time out was performed. 1 gram of Ancef was given IV. IV sedation was administered. The skin and the soft tissues were infiltrated with 1% Lidocaine . With real-time ultrasound guidance, the internal jugular vein was accessed with a micropuncture kit, and an image documenting patency was recorded to PACS. A subcutaneous tunneled tract was created from the right upper chest to the venotomy site. A 14.5 [place] Daggett Path, 19 cm long hemodialysis catheter was advanced through the tunneled tract. Fluoroscopy was used to advance a guidewire through the internal jugular vein into the inferior vena cava. Following serial dilatation, a 15 [place] peel-away sheath was introduced, though which was advanced the catheter into the right atrium. The catheter tip position was confirmed with fluoroscopy. There was satisfactory flow in both lumens. The catheter lumens were flushed with saline and heparin was left indwelling in the catheter. A post-procedure image of the chest was obtained. The neck incision site was closed with a Vicryl suture and dressed sterilely. The catheter was sutured at the skin surface and exit site also dressed sterilely. No immediate complication was identified. Air Kerma 15 mGy FLUOROSCOPY TIME: 1.0 minutes. SEDATION: Dr. Holli Leal was personally responsible for the administration of moderate sedation during the procedure performed, including the use of an independent trained observer who had no other duties during the procedure. The drugs utilized were IV fentanyl and versed (see nursing log for details). The total time of supervision by the attending physician was approximately 20 minutes. FINDINGS: Widely patent right IJV. Post procedure image demonstrates smooth course of the hemodialysis catheter with the tip in the right atrium. IMPRESSION: Placement of 14.5 german Daggett Path, 19 cm long hemodialysis catheter through right internal jugular vein. Plan: Please contact IR for removal when no longer needed.
--- NOTE | 2025-09-26 21:30 | DVHPNRES ---
Progress Note Date Seen: Sep 26, 2025 Resident Creating Document: URIAH NOBLE RESIDENT Has the PT tested + for MRSA If YES, has PT been informed?: No Medical Necessity Reason Pt with a Central, PICC or Fol: Yes The following are medically ne: Meng Catheter Reason for meng catheter: Strict I&O Subjective Review of Systems Ms. Marin is a 75-year-old female with prior medical history of HFpEF, COPD with home oxygen, gout, anxiety, type 2 diabetes mellitus, hyperlipidemia, hypertension, and PAD, who bas brought to the [facility] by EMS with chief complaint of shortness of breath and back and midsternal non-radiating chest pain. Daughter reported progressively worsening shortness of breath for the last 2 weeks associated with general malaise and orthopnea, describing very wet coughing sounds when her mother lays flat. She states that her mother began complaining of worsening shortness of breath associated with non-radiating midsternal chest pain which prompted her to call EMS. Per record, on seen she was saturating 74%, she was placed on CPAP with inspiration increasing to 88% on route to the emergency department. On evaluation in the ED, patient was afebrile, slightly hypertensive, and tachypneic, saturating 81% which she was placed on BiPAP. Initial labs significant for leukocytosis of 11.3, with elevated hematocrit, and thrombocytopenia, hyperkalemia, creatinine 4.09, BUN 46, and ABG significant for respiratory acidosis, troponins are negative, BNP 2515.41. Serology was positive for influenza A and B. Chest x-ray showed moderate to severe pulmonary edema. Patient further deteriorated requiring intubation for respiratory distress. She was started on IV Lasix, IV methylprednisolone, hyperkalemia protocol, bicarbonate drip, and nitroglycerin drip. Prior Medical history: CHF, COPD, gout, anxiety, type 2 diabetes mellitus, hyperlipidemia, hypertension, PAD, pulmonary hypertension Previous surgical history: Left leg stenting for PAD Allergies: Denies Social history: Daughter reports the patient smokes cigarettes with cessation approximately 20 years ago Home medications: Allopurinol, insulin, gabapentin, simvastatin, tadalafil 09/19/2025: Patient was seen at bedside. She passed swallow evaluation over the weekend; patient appears more confused in the morning as the day progresses patient is more alert and oriented. Blood culture positive for coagulase negative Staphylococcus epidermidis, likely due to contamination. Discontinued hydralazine in context of normal blood pressure. Discontinued vancomycin in context of absence of a left shift. We will consult adoption social worker for placement in SNF, patient will undergo tunneled catheter placement with Radiology, interventional Radiology consulted. Physical therapy on board. 07/21/2025: Patient was seen at bedside. She has no new complaints today. Consulted adoption social worker for placement in SNF for physical therapy. Ordered another set of blood cultures, pending placement of tunneled hemodialysis catheter. Discontinued NG tube. 09/21/2025: Patient was seen at bedside. Patient was sleepy during the interview. No significant overnight episodes. 09/22/2025: Patient was seen at bedside. She complained of back pain and generalized itching. Ordered lidocaine patch and Benadryl for symptomatic relief. Hemodialysis today. Repeat blood culture shows no growth, we will follow up with IR for tunneled Hd catheter. 09/23/2025: Patient was seen at bedside. She complained of back pain and generalized itching. Overnight, patient refused antibiotic treatment and declined blood draw. In morning the patient was unsure about which medication she had refused overnight. She also stated that she does not want further IV medication and does not want to be "poked" anymore. On bedside evaluation, at the time she declined IV antibiotics and blood draw, the patient appeared a and O x4. She was able to correctly state who she is, where she is and where she lives. However during the encounter she exhibited intermittent episodes of confusion including brief moments where she was unable to sustain conversation and appeared to lose track before redirecting back appropriately. Overall, despite being oriented to person, place, time, situation during the assessment, the patient continues to demonstrate intermittent confusion likely from underlying dementia. Patient's daughter Susy updated. 09/24/2025: Patient seen at bedside. Yesterday, patient IV meropenem after thorough counseling. Labs show WBC count trending down. Today she is complaining of generalized itching and bilateral leg pain. Patient appeared agitated in complaint of disliking the food. She also refused blood draw in the morning. Per patient she does not like being woken up in the morning for blood draws, we will schedule labs for 10:00 a.m. tomorrow. Patient was counseled and attempts were made to calm her, daughter on bedside. Offered additional blankets as she was complaining of feeling cold overnight. She continues to refuse Meng change; patient verbalized the understanding of her current medical condition and management. 09/26/2025: Patient was seen at bedside. She underwent tunneled hemodialysis catheter placement today. Cultures growing yeast, started on fluconazole IV, we will switch to p.o. fluconazole eventually. Physical therapy on board, consulted adoption social worker for discharge to SNF for physical therapy. Objective vital signs Vital Sign Date Time Temp Pulse Resp B/P (MAP) Pulse Ox O2 Delivery O2 Flow Rate FiO2 09/26/25 19:11 74 14 100 09/26/25 19:01 Nasal Cannula* 2 09/26/25 17:00 97.6 113/47 (69) 97.6 Total Intake and Output 09/25/25 09/25/25 09/26/25 15:00 23:00 07:00 Intake Total 240 ml 350 ml Output Total 75 ml Balance 240 ml 275 ml medications Current Medications Medications Dose Ordered Sig/Adri Route Start Time Stop Time Status Last Admin Dose Admin Nitroglycerin 0.4 mg Q5MINP PRN SL 08/20/25 23:15 Hold Levalbuterol HCl 1.25 mg Q6HR NEB 09/09/25 12:00 09/26/25 19:01 1.25 MG Acetylcysteine 100 mg Q6HR NEB 09/09/25 12:00 09/26/25 19:00 100 MG Ipratropium [place] 0.5 mg Q6HR NEB 09/09/25 12:00 09/26/25 19:00 0.5 MG Heparin Sodium (Porcine) 5,000 units Q12HR SC 09/12/25 22:00 09/25/25 21:11 5,000 UNITS Albumin Human 100 ml @ 100 mls/hr PRN PRN IV 09/13/25 07:00 09/15/25 11:23 100 MLS/HR Bumetanide 2 mg DAILY IV 09/16/25 14:00 09/26/25 15:30 2 MG Ondansetron HCl 4 mg Q4HPRN PRN IV 09/18/25 05:45 09/20/25 14:34 4 MG Amino Acid Protein 30 ml Q6HR PO 09/20/25 00:00 09/26/25 18:00 30 ML Sildenafil Citrate 20 mg TID@08,14,20 PO 09/20/25 08:00 09/26/25 20:51 20 MG Enteral Nutritional Formula 240 ml BIDWM PO 09/21/25 18:00 09/26/25 18:00 240 ML Lidocaine 1 patch DAILY TOP 09/23/25 10:00 09/25/25 10:33 1 PATCH Gabapentin 300 mg DAILY PO 09/26/25 10:30 09/26/25 15:30 300 MG Fluconazole 200 mg DAILY PO 09/27/25 10:00 Examination General: Patient was A&O x4. Agitated. Following commands. HEENT: Nystagmus POA Respiratory/pulmonary: Normal breath sounds heard Cardiovascular: Normal heart sounds S1 and S2 with no associated murmurs. Abdomen: Abdomen nondistended, normal bowel sounds. Extremities: Dry, crusted planter surface of bilateral feet. SCDs present bilaterally. Sacrum: Healing sacral flap (POA) from previous sacral ulcer laboratory and microbiology Laboratory Tests 09/26/25 05:34 Test 09/26/25 05:34 Range/Units Serum Glucose 90 74-106 mg/dL Microbiology Date/Time Source Procedure Growth Status 09/23/25 19:01 Blood Blood Culture - Preliminary NO GROWTH AFTER 72 HOURS OF INCUBATION. Resulted 09/22/25 16:00 Voided Urine Urine Culture - Final Presumptive Jasmin albicans Complete 08/22/25 08:06 Nose MRSA Screen - Final Complete Problem List/Assessment/Plan Problem List/Assessment/Plan Neurology Sedation discontinued Versed Discontinued Propofol: Discontinued Fentanyl discontinued # Metabolic encephalopathy due to Uremia/ Sepsis with anxiety/agitation/ delirium POA Creatinine continues to trend up. IR deferred tunneled catheter placement for now. Temporary hemodialysis catheter inserted Ordered ABG in context of no improvement in confusion. ABG resulted WNL Ordered noncontrast CT head. Underwent hemodialysis today PT on board; social service consulted for placement in SNF for physical therapy # Dementia, unspecified # Possible ing Follow with neurology in outpatient clinic HEENT # Right eye nystagmus Per daughter, present since Cardiovascular # Acute on chronic HFpEF (improving) # Pulmonary Edema BNP normalized; OA Chest xray 08/20/2025: Moderate to severe pulmonary edema Chest xray 08/21/2025: Cardiomegaly with pulmonary venous congestion and edema Echocardiogram 01/14/2022: EF > 60%, Limited echo windows, mild TR, MR Echocardiogram 10/22/2024: Technically good study sinus rhythm. Concentric LVH with left atrial enlargement. Mild aortic sclerosis. Mild thickening of the anterior and posterior mitral leaflets. Valves appear to be structurally normal. Left ventricular function is preserved at 60% with normal RV function. Cardiology: Pending echo, considered R/LHC if inconclusive , discontinue bumex drip Per nephrology: Trial of bumex + albumin and D5W 75 cc/hour. Bumex drip discontinued by cardiology. D5W has been discontinued due to resolution of hypernatremia Lasix discontinued Repeat CXR from 09/13/2025 shows pulmonary vascular congestion reduced in comparison to previous X-rays Chest x-ray from 09/15/2025 shows stable pulmonary vascular congestion and small pleural effusions Continue Bumex 2 mg daily per Nephrology (see below) #Hypertension Continue Amlodipine 10 mg NG daily, Hydralazine 50 mg q8 #CAD Coronary angiogram done on 08/30/2025: Left main, LAD and circumflex are patent, RCA patent, EF is 50-55% #Severe pulmonary hypertension R/L heart catheterization 08/30/2025: RA pressure 18 mmHg, RV pressure 62/16 mmHg, pulmonary artery pressure 66/18 mmHg, capillary wedge pressure: 17 mmHg Per cardiology: Sildenafil 20mg NG TID, testing testing 40 but this was lowered Respiratory Ventilator Intubated (08/21/2025) Extubated (09/07/2025) # Acute hypercapnic respiratory failure secondary to pulmonary edema s/p Extubation # Acute hypoxic respiratory failure # Respiratory acidosis (resolving) Discontinued oxygen supplementation with Oxymizer Med neb treatment with Ipratropium, levalbuterol Mucomyst 100 mg q 8 hours PT evaluation requested Continue oxygen supplementation, currently on 5 L oxygen. Continue tapering as tolerated. # Acute COPD exacerbation Methylprednisolone 40 mg IV, discontinued Medneb treatment with Ipratropium medneb, Albuterol medneb Ceftriaxone 1 g IV daily (discontinued) # Community acquired pneumonia due to Gram-positive/Gram-negative pneumonia/ Influenza A and B POA Tamiflu 30 mg BID suspension, discontinued Discontinued Zosyn, Discontinued vancomycin. Continue IV Ceftriaxone Gastrointestinal NG tube reinserted (09/13/2025); failed swallow evaluation # Peptic ulcer prophylaxis Pantoprazole 40 mg IV daily # Constipation Lactulose 15 mL Genitourinary Replace Meng catheter (09/12/25) Replace Meng catheter 09/18/2025 # Complicated UTI UA positive for UTI Ceftriaxone 1 g IV daily, discontinued Previously switched cefepime to vancomycin and Zosyn Discontinued meropenem Cultures positive for yeast, started on IV fluconazole Nephrology # COLE on CKD likely hemodynamically mediated/ VMN # ESRD requiring intermittent HD Supportive management with IV fluids given Nephrology on board, recommended hemodialysis Patient initially had dialysis catheter in the right femoral region, removed. Interventional radiology on board, tunneled catheter placement deferred till confirmation with negative blood cultures. Kidney ultrasound shows no acute abnormality Nephrology on board, recommended hemodialysis, richy Marie in the interim. Continue tube feeding, monitor fluid balances, strict I&Os On Hemodialysis On Bumex 2 mg IV (started on 09/16/2025) per nephrology Underwent tunneled hemodialysis catheter (09/27/2025) # Hyperkalemia, resolved Per nephrology: trial of forced diuresis to enhance potassium excretion, serial chemistry panels, IV bicarbonate infusion, and avoidance of IV contrast if able. # Hypokalemia Supplemented # Acute metabolic acidosis # Nephrotic syndrome secondary to underlying diabetic nephropathy, possible # Hypernatremia due to insensible water loss D5W, discontinued Infectious disease # Sepsis POA d/t below # Influenza A and B Pneumonia POA Serology positive for Influenza A & B Tamiflu 30 mg BID suspension, discontinued # Possible Complicated UTI, present on admission Ceftriaxone 1 g IV daily, discontinued Discontinued cefepime; discontinue vancomycin. Discontinued Zosyn. Discontinued IV Rocephin. Ordered urine analysis, repeat urine culture Discontinued IV meropenem (renally dosed) Repeat blood culture shows no growth Patient noncompliant Urine culture shows yeast growth, started on IV fluconazole # Bacteremia versus contamination due to Staphylococcus epidermidis Repeat blood culture shows no growth, positive results on 1 set likely due to contamination Hem/oncology # Thrombocytopenia, resolved # Microcytic, hypochromic anemia # Heparin induced thrombocytopenia type 1, possible Intermediate possibility of HIT on 4Ts score Monitor CBC # Eosinophilia Switched Zosyn to IV Rocephin. Eosinophil continues to trend down. Monitor CBC Endocrine # Type 2 diabetes mellitus Mild Sliding scale Monitor blood glucose # Class 1 Obesity BMI 30 Dermatology # Generalized itching likely due to uremia Benadryl PO prn DVT prophylaxis: Heparin 5000 IU BID PUD prophylaxis: Pantoprazole 40 mg p.o. daily Lines: - L femoral Central line 08/20/2025 - discontinued on 08/29/2025 - L internal jugular central line 08/29/2025 09/08/2025 - Meng catheter 08/20/2025; exchange on 09/26/2025 - ET tube: 08/21/2025 (extubated 09/07/2025) - Femoral Frank catheter: 08/30/2025- 09/10/2025 - Mid line: 09/08/2025 - Frank catheter 09/12/25 Nutrition: Nepro discontinued Continue p.o. nutrition; renal mechanical soft diet PO Nepro b.i.d. Goals of care discussed with nurses, Daughters on bedside Goals of care discussed at bedside for more than 49 minutes. Plan discussed with Dr. Lopez Plan discussed with: Daughter, Other (Nurses) My Orders My Orders Orders - URIAH NOBLE RESIDENT Procedure Category Date Status Time * Registered Pharmacist CONS 09/26/25 Transmitted Consult Fluconazole Tablet PHA 09/27/25 In Process (Diflucan Tablet) 10:00 Ok To Change Meng ORDERS 09/26/25 Transmitted 17:00 Communication Order ORDERS 09/26/25 Transmitted 17:00 Complete Blood Count LAB 09/27/25 Verified 04:00 Basic Metabolic Panel LAB 09/27/25 Verified 04:00 Dietary Evaluation Review Comments: Nutrition Recommendation: 1) EN Nepro Carbsteady @ 30ml/hr x 24hr (goal) along with Pro-stat 1 pk BID. Water flush 50ml Q6H if allowed, adjust PRN. TF at goal volume along with propofol & Pro-stat provide 1777 kcal (100%), 89 gm protein (83%), and 723 ml free water(including flush). 2) TPN if NPO >7 days 3) Monitor NPO status, lab values, weight trend, and I/O Expected Outcomes/Goals: Intake to meet >75% estimated needs Lab values to improve FU 2-3 days Visit Coding STANDARD RES Billing Provider: PATRICIA LOPEZ MD Date of Service if different f: Sep 26, 2025 Common Visit Codes: [id number] INP/OBS CARE(HIGH) URIAH NOBLE RESIDENT Sep 26, 2025 21:30 PATRICIA LOPEZ MD Sep 27, 2025 15:28
[2025-09-26] MEDS: FLUCONAZOLE 200MG/100ML 100 ML IV ONE (22:41)
[2025-09-27] VITALS (11 sets, daily range): BP systolic 80–135; BP diastolic 48–66; PULSE 88–108; RESP 16–19; TEMP 36.5; O2SAT 93–100
[2025-09-27 06:59] LABS: Hemoglobin 9.8 g/dL (12.2-16.2); Nucleated Red Blood Cells % 0.1 %
[2025-09-27] MEDS ORDERED: SODIUM CHL 0.9% 1000 ML BAG XX ONE (07:00)
[2025-09-27 07:03] LABS: Hematocrit 34.0 % (36.0-46.0); Mean Corpuscular Hemoglobin 19.5 pg (28.0-32.0); Mean Corpuscular Volume 67.4 fL (80.0-100.0)
[2025-09-27 07:18] LABS: Anion Gap 15 (5-15); Carbon Dioxide 24 mmol/L (20-31); Chloride 98 mmol/L (98-107); Potassium 4.3 mmol/L (3.5-5.1); Sodium 137 mmol/L (136-145)
[2025-09-27 07:19] LABS: Calcium 9.4 mg/dL (8.7-10.4)
[2025-09-27 07:24] LABS: BUN/Creatinine Ratio 4.1 (10.0-20.0)
[2025-09-27 07:25] LABS: Blood Urea Nitrogen 35 mg/dL (9-23); Glucose 111 mg/dL (74-106)
[2025-09-27 07:54] LABS: Anisocytosis Moderate
[2025-09-27] MEDS: FLUCONAZOLE 100 MG TAB PO SCH (09:00)
--- NOTE | 2025-09-27 12:29 | DVHPN2 ---
Progress Note Date Seen: Sep 27, 2025 Has the PT tested + for MRSA If YES, has PT been informed?: No Medical Necessity Reason Pt with a Central, PICC or Fol: Yes The following are medically ne: Central Line (TC for dialysis), Meng Catheter Reason for meng catheter: Strict I&O Objective vital signs Vital Sign Date Time Temp Pulse Resp B/P (MAP) Pulse Ox O2 Delivery O2 Flow Rate FiO2 09/27/25 11:17 93 Nasal Cannula* 2 28 09/27/25 09:01 116/60 09/27/25 09:00 97.8 94 19 97.8 Total Intake and Output 09/26/25 09/26/25 09/27/25 15:00 23:00 07:00 Intake Total 0 ml 900 ml Output Total 400 ml Balance 0 ml 500 ml medications Current Medications Medications Dose Ordered Sig/Adri Route Start Time Stop Time Status Last Admin Dose Admin Nitroglycerin 0.4 mg Q5MINP PRN SL 08/20/25 23:15 Hold Levalbuterol HCl 1.25 mg Q6HR NEB 09/09/25 12:00 09/27/25 06:17 1.25 MG Acetylcysteine 100 mg Q6HR NEB 09/09/25 12:00 09/27/25 06:17 100 MG Ipratropium [place] 0.5 mg Q6HR NEB 09/09/25 12:00 09/27/25 06:17 0.5 MG Heparin Sodium (Porcine) 5,000 units Q12HR SC 09/12/25 22:00 09/27/25 09:02 5,000 UNITS Albumin Human 100 ml @ 100 mls/hr PRN PRN IV 09/13/25 07:00 09/15/25 11:23 100 MLS/HR Bumetanide 2 mg DAILY IV 09/16/25 14:00 09/27/25 09:01 2 MG Ondansetron HCl 4 mg Q4HPRN PRN IV 09/18/25 05:45 09/20/25 14:34 4 MG Amino Acid Protein 30 ml Q6HR PO 09/20/25 00:00 09/27/25 12:27 30 ML Sildenafil Citrate 20 mg TID@08,14,20 PO 09/20/25 08:00 09/27/25 09:00 20 MG Enteral Nutritional Formula 240 ml BIDWM PO 09/21/25 18:00 09/27/25 08:00 240 ML Lidocaine 1 patch DAILY TOP 09/23/25 10:00 09/27/25 09:01 1 PATCH Gabapentin 300 mg DAILY PO 09/26/25 10:30 09/27/25 09:00 300 MG Fluconazole 200 mg DAILY PO 09/27/25 10:00 09/27/25 09:00 200 MG Examination: GENERAL:Normal, CVS:Normal, SKIN:Abnormal laboratory and microbiology Laboratory Tests 09/27/25 06:23 Test 09/27/25 06:23 Range/Units Serum Glucose 111 H 74-106 mg/dL Microbiology Date/Time Source Procedure Growth Status 09/23/25 19:01 Blood Blood Culture - Preliminary NO GROWTH AFTER 72 HOURS OF INCUBATION. Resulted 09/22/25 16:00 Voided Urine Urine Culture - Final Presumptive Jasmin albicans Complete 08/22/25 08:06 Nose MRSA Screen - Final Complete Problem List/Assessment/Plan Problem List/Assessment/Plan CKD with progression to ESRD Community-acquired pneumonia , influenza Diabetes mellitus type 2 Nephrotic syndrome secondary to underlying diabetic nephropathy hypertension CAD HD today w/ new TC monitor fluid balances Strict I&Os kidney ultrasound reported within normal limit IV antibiotics Avoid nephrotoxic medications will need chairtime Plan discussed with: Patient My Orders My Orders Orders - KELLY DIAZ MD Procedure Category Date Status Time Hemodialysis Orders ORDERS 09/27/25 Transmitted 07:00 Dialysis Nursing [facility] 09/27/25 In Process Message 07:00 Document Fluid Input [facility] 09/27/25 In Process And Outpu 07:00 Dietary Evaluation Review Comments: Nutrition Recommendation: 1) EN Nepro Carbsteady @ 30ml/hr x 24hr (goal) along with Pro-stat 1 pk BID. Water flush 50ml Q6H if allowed, adjust PRN. TF at goal volume along with propofol & Pro-stat provide 1777 kcal (100%), 89 gm protein (83%), and 723 ml free water(including flush). 2) TPN if NPO >7 days 3) Monitor NPO status, lab values, weight trend, and I/O Expected Outcomes/Goals: Intake to meet >75% estimated needs Lab values to improve FU 2-3 days KELLY DIAZ MD Sep 27, 2025 12:29
--- NOTE | 2025-09-27 14:29 | DVHPN2 ---
Progress Note - Dictate Date Seen: Sep 27, 2025 Has the PT tested + for MRSA If YES, has PT been informed?: No Medical Necessity Reason Pt with a Central, PICC or Fol: Yes The following are medically ne: Central Line (TC for dialysis), Meng Catheter Reason for meng catheter: Strict I&O Subjective PT WELL KNOWN TO ME ORGANIC HEART DISEASE CAD HFrEF HTN 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 HYPERKALEMIA COPD HYPERLIPIDEMIA SIGN SX COMPLEX OF NOW WITH SOB CHEST PAIN RENAL FAILURE HYPERKALEMIA RESP FAILURE REQUIRING INTUBATION vital signs Vital Sign Date Time Temp Pulse Resp B/P (MAP) Pulse Ox O2 Delivery O2 Flow Rate FiO2 09/27/25 12:58 97.8 88 18 121/59 (79) 96 97.8 09/27/25 11:17 Nasal Cannula* 2 28 Total Intake and Output 09/26/25 09/26/25 09/27/25 15:00 23:00 07:00 Intake Total 0 ml 900 ml Output Total 400 ml Balance 0 ml 500 ml medications Current Medications Medications Dose Ordered Sig/Adri Route Start Time Stop Time Status Last Admin Dose Admin Nitroglycerin 0.4 mg Q5MINP PRN SL 08/20/25 23:15 Hold Levalbuterol HCl 1.25 mg Q6HR NEB 09/09/25 12:00 09/27/25 06:17 1.25 MG Acetylcysteine 100 mg Q6HR NEB 09/09/25 12:00 09/27/25 06:17 100 MG Ipratropium [place] 0.5 mg Q6HR NEB 09/09/25 12:00 09/27/25 06:17 0.5 MG Heparin Sodium (Porcine) 5,000 units Q12HR SC 09/12/25 22:00 09/27/25 09:02 5,000 UNITS Albumin Human 100 ml @ 100 mls/hr PRN PRN IV 09/13/25 07:00 09/15/25 11:23 100 MLS/HR Bumetanide 2 mg DAILY IV 09/16/25 14:00 09/27/25 09:01 2 MG Ondansetron HCl 4 mg Q4HPRN PRN IV 09/18/25 05:45 09/20/25 14:34 4 MG Amino Acid Protein 30 ml Q6HR PO 09/20/25 00:00 09/27/25 12:27 30 ML Sildenafil Citrate 20 mg TID@08,14,20 PO 09/20/25 08:00 09/27/25 09:00 20 MG Enteral Nutritional Formula 240 ml BIDWM PO 09/21/25 18:00 09/27/25 08:00 240 ML Lidocaine 1 patch DAILY TOP 09/23/25 10:00 09/27/25 09:01 1 PATCH Gabapentin 300 mg DAILY PO 09/26/25 10:30 09/27/25 09:00 300 MG Fluconazole 200 mg DAILY PO 09/27/25 10:00 09/27/25 09:00 200 MG laboratory and microbiology Laboratory Tests 09/27/25 06:23 Test 09/27/25 06:23 Range/Units Serum Glucose 111 H 74-106 mg/dL Problem List ORGANIC HEART DISEASE CAD HFrEF HTN 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 HYPERKALEMIA COPD HYPERLIPIDEMIA SIGN SX COMPLEX OF NOW WITH SOB CHEST PAIN RENAL FAILURE HYPERKALEMIA RESP FAILURE REQUIRING INTUBATION EXTUBATED MENINGIOMA NO CHANGE Assessment/Plan CORRECT HYPERKALEMIA CONSIDER ECHO IF INCONCLUSIVE CONSIDER L/RHC BNP 370 ABX DC BUMEX START IVF AT 100 CC/HR ADD LOKELMA K+ CORRECTED REPEAT BNP WILL PROCEED WITH L/RHC ON FRIDAY POSITIVE FOR INFLUENZA A AND B POSITIVE START WEANING PT CON IV FLUID L/RHC NL CORONARIES EF >50% LVEDP 17mmHg RHC RA 15-27mmHg RV 62/17 PA`66/ 18 PCWP 17 SEVERE PUL HYPERTENSION START REVATIO 20 MG TID HEMODIALYSIS IN AM CHEST CXR STILL WITH INFILTRATIVE PROCESS START WEAN SEDATION WITH HD SIGNIFICANT IMPROVEMENT IN LUNG EFFUSION AND INFILTRATE STOP SEDATION WEAN PT OFF VENT OTHERWISE CONSIDER TRACH CHEST CXR APPEARS TO HAVE IMPROVED SIGNIFICANTLY COMPARED TO 08/29/25 LAST RIGHT SIDED EFFUSION SIGNIFICANT CLEARING OF INTERSTITIAL INFILTRATE OFF SEDATION EXTUBATED DIALYSIS UREMIC LEUKOCYTOSIS CXR ABG RESP ACIDOSIS IMPROVED WITH LOWER O2 LEUKOCYTOSIS CONSIDER CT CHEST CXR STABLE WITH MILD IMPROVEMENT OF INFILTRATE PT REVIEWED LABS: NA, K, AND CL ARE NORMAL Dietary Evaluation Review Comments: Nutrition Recommendation: 1) EN Nepro Carbsteady @ 30ml/hr x 24hr (goal) along with Pro-stat 1 pk BID. Water flush 50ml Q6H if allowed, adjust PRN. TF at goal volume along with propofol & Pro-stat provide 1777 kcal (100%), 89 gm protein (83%), and 723 ml free water(including flush). 2) TPN if NPO >7 days 3) Monitor NPO status, lab values, weight trend, and I/O Expected Outcomes/Goals: Intake to meet >75% estimated needs Lab values to improve FU 2-3 days Plan discussed with: Patient RAMIN GARCIA MD Sep 27, 2025 14:28
[2025-09-27] MEDS ORDERED: FLUC100T34 PO (16:05)
[2025-09-27] MEDS ORDERED: SILD20TA PO (16:05)
--- NOTE | 2025-09-27 17:13 | DVHDSRES ---
Discharge Summary Date of Admission Resident Creating Document: URIAH NOBLE RESIDENT Aug 20, 2025 at 23:55 Date of Discharge: Sep 27, 2025 Labs/Diagnostic Data: Laboratory Results Test 09/27/25 06:23 09/25/25 11:42 09/23/25 18:55 09/22/25 16:00 White Blood Count 14.5 10^3/uL (4.4-10.8) Red Blood Count 5.04 10^6/uL (4.0-5.20) Hemoglobin 9.8 g/dL (12.2-16.2) Hematocrit 34.0 % (36.0-46.0) Mean Corpuscular Volume 67.4 fL (80.0-100.0) Mean Corpuscular Hemoglobin 19.5 pg (28.0-32.0) Mean Corpuscular Hemoglobin Concent 28.9 g/dL (32.0-36.0) Red Cell Distribution Width 27.7 % (11.8-14.3) Platelet Count 182 10^3/uL (140-450) Mean Platelet Volume 8.5 fL (6.9-10.8) Neutrophils (%) (Auto) 64.9 % (37.0-80.0) Lymphocytes (%) (Auto) 19.8 % (10.0-50.0) Monocytes (%) (Auto) 8.3 % (0.0-12.0) Eosinophils (%) (Auto) 6.2 % (0.0-7.0) Basophils (%) (Auto) 0.8 % (0.0-2.0) Neutrophils # (Auto) 9.4 10 ^3/uL (1.6-8.6) Lymphocytes # (Auto) 2.9 10 ^3/uL (0.4-5.4) Monocytes # (Auto) 1.2 10 ^3/uL (0-1.3) Eosinophils # (Auto) 0.9 10 ^3/uL (0-0.8) Basophils # (Auto) 0.1 10 ^3/uL (0-0.2) Nucleated Red Blood Cells 0.1 % Platelet Estimate Adequate Hypochromasia (manual) Marked Anisocytosis (manual) Moderate Microcytosis Marked Target Cells Few Sodium Level 137 mmol/L (136-145) Potassium Level 4.3 mmol/L (3.5-5.1) Chloride Level 98 mmol/L (98-107) Carbon Dioxide Level 24 mmol/L (20-31) Anion Gap 15 (5-15) Blood Urea Nitrogen 35 mg/dL (9-23) Creatinine 8.45 mg/dL (0.550-1.02) Glomerular Filtration Rate Calc 5 mL/min (>90) BUN/Creatinine Ratio 4.1 (10.0-20.0) Serum Glucose 111 mg/dL (74-106) Calcium Level 9.4 mg/dL (8.7-10.4) Total Bilirubin 0.3 mg/dL (0.2-1.0) Aspartate Amino Transferase (AST) 13 U/L (13-40) Alanine Aminotransferase (ALT) < 9 U/L (7-40) Alkaline Phosphatase 82 U/L (46-116) Total Protein 7.3 g/dL (5.7-8.2) Albumin 3.9 g/dL (3.2-4.8) Differential Total Cells Counted 100.0 (100) Neutrophils % (Manual) 75 (37.0-80.0) Band Neutrophils % (Manual) 0 Lymphocytes % (Manual) 15 (10.0-50.0) Monocytes % (Manual) 7 (0-12) Eosinophils % (Manual) 3 (0-7) Basophils % (Manual) 0 (0.0-2.0) Metamyelocytes % (manual) 0 Myelocytes % (Manual) 0 Promyelocytes % (Manual) 0 Blast Cells % (Manual) 0 Reactive Lymphocytes 0 Urine Color Light-brown (Yellow) Urine Clarity Turbid (Clear) Urine pH 7.5 (5.0-9.0) Urine Specific Keller 1.018 (1.001-1.035) Urine Protein 3+ (Negative) Urine Ketones Negative (Negative) Urine Blood 3+ /uL (Negative) Urine Nitrite Negative (Negative) Urine Bilirubin Negative (Negative) Urine Urobilinogen Normal mg/dL (Negative) Urine Leukocyte Esterase 3+ /uL (Negative) Urine RBC 1462 /hpf (0 - 4) Urine WBC Clumps Present /hpf (None Seen) Urine Microscopic WBC 311 /HPF (0-5) Urine Squamous Epithelial Cells None seen /hpf (<5) Urine Bacteria None seen /hpf (None Seen) Urine Glucose 2+ mg/dL (Normal) Test 09/22/25 05:34 09/20/25 14:38 09/20/25 05:45 09/18/25 05:11 Large Platelets Few Ovalocytes Few POC Glucose 134 mg/dl (70-106) Random Vancomycin Level 18.3 ug/mL (5-10) Magnesium Level 2.0 mg/dL (1.6-2.6) Test 09/17/25 05:49 09/14/25 12:05 09/12/25 03:45 09/09/25 14:02 Stomatocytes Blood Gas Specimen Type Arterial Blood Gas Sample Site Right radial Blood Gas Patient Temperature 37.0 Arterial Blood Date Drawn [id number] Arterial Blood pH 7.412 (7.350-7.450) Arterial Blood Partial Pressure CO2 43.8 mmHg (32.0-45.0) Arterial Blood Partial Pressure O2 62.3 mmHg (83.0-108.0) Arterial Blood HCO3 27.3 mmol/L (21.0-28.0) Arterial Blood Oxygen Saturation 90.5 % (94.0-98.0) Arterial Blood Base Excess 2.3 mmol/L (-2.0-3.0) Arterial Blood Oxyhemoglobin 89.5 % (94.0-98.0) Arterial Blood Carboxyhemoglobin 0.9 % (0.5-1.5) Arterial Blood Methemoglobin 0.2 % (0.0-1.5) Arterial Blood Deoxyhemoglobin 9.4 % (0.0-5.0) Ulises Test Yes Blood Gas Total Hemoglobin 12.10 g/dL (12.0-16.0) Blood Gas Liter Flow 5.00 Blood Gas Modality Nasal cannula FiO2 % 40.0 Phosphorus Level 4.3 mg/dL (2.4-5.1) Prothrombin Time 12.1 sec (9.3-11.8) Prothrombin Time INR 1.16 (0.9-1.15) Activated Partial Thromboplast Time 30.8 SEC (24.5-34.5) Test 09/07/25 11:44 09/07/25 07:31 09/03/25 07:20 08/30/25 15:25 Blood Gas Pressure Support 8 Blood Gas PEEP or CPAP 5.0 Blood Gas Set Respiration Rate 24.0 Blood Gas Tidal Volume 450.0 Blood Gas Spontaneous Rate 24 Hepatitis B Surface Antigen Negative (Negative) Hepatitis C Antibody Negative (Negative) Test 08/27/25 03:34 08/24/25 11:05 08/24/25 03:05 08/22/25 12:52 B-Type Natriuretic Peptide 136.64 pg/mL (0-100) Haptoglobin 127 mg/dL (42-346) Direct Bilirubin 0.3 mg/dL (<0.3) Lactate Dehydrogenase 290 U/L (120-246) Urine Creatinine 52.93 mg/dL (30.0-125.0) Urine Sodium 114 mmol/L (40-220) Test 08/22/25 11:43 08/22/25 11:26 08/22/25 03:50 08/21/25 11:22 Urine Hyaline Casts Mod /lpf (0 - 2) Urine Mucus Few (None Seen) Urine Protein/Creatinine Ratio 4.08 Urine Total Protein 204.4 mg/dL (1-14) Vitamin D 25-Hydroxy 25.3 ng/mL (30.0-100) Parathyroid Hormone (Intact) 542.9 pg/mL (18.4-80.1) Creatine Kinase 35 U/L (34-145) Influenza Type A Antigen Positive (Negative) Influenza Type B Antigen Positive (Negative) SARS-CoV-2 Antigen (Rapid) Negative (NEGATIVE) Test 08/21/25 07:12 08/21/25 01:14 08/20/25 22:51 08/20/25 19:50 Blood Gas Critical Value Read Back Yes Blood Gas Notified Whom art Reed dnp Blood Gas Notified Time [id number] Blood Gas Notified By joyce Gan rt. Blood Gas EPAP 8 Blood Gas IPAP 18 Troponin I High Sensitivity 27 ng/L (</=34) Lactic Acid Level 0.8 mmol/L (0.4-2.0) Other Laboratory Tests 09/27/25 06:23 Brief Hx & Hospital Course: Brief history on arrival: Ms. Marin is a 75-year-old female with prior medical history of HFpEF, COPD with home oxygen, gout, anxiety, type 2 diabetes mellitus, hyperlipidemia, hypertension, and PAD, who was brought to the [facility] by EMS with chief complaint of shortness of breath and back and midsternal non-radiating chest pain. Daughter reported progressively worsening shortness of breath for the last 2 weeks associated with general malaise and orthopnea, describing very wet coughing sounds when her mother lays flat. She states that her mother began complaining of worsening shortness of breath associated with non-radiating midsternal chest pain which prompted her to call EMS. Per record, on seen she was saturating 74%, she was placed on CPAP with inspiration increasing to 88% on route to the emergency department. On evaluation in the ED, patient was afebrile, slightly hypertensive, and tachypneic, saturating 81% which she was placed on BiPAP. Initial labs significant for leukocytosis of 11.3, with elevated hematocrit, and thrombocytopenia, hyperkalemia, creatinine 4.09, BUN 46, and ABG significant for respiratory acidosis, troponins are negative, BNP 2515.41. Serology was positive for influenza A and B. Chest x-ray showed moderate to severe pulmonary edema. Patient further deteriorated requiring intubation for respiratory distress. Hospital course: The patient was admitted with acute hypercapnic and hypoxic respiratory failure secondary to pulmonary edema and underlying chronic heart failure with preserved ejection fraction (HFpEF). She required mechanical ventilation and vasopressor support.She was started on IV Lasix, IV methylprednisolone, hyperkalemia protocol, bicarbonate drip, and nitroglycerin drip. Echocardiogram showed concentric LVH with left atrial enlargement, mild aortic sclerosis, mild thickening of the anterior and posterior mitral leaflets, left ventricular function is preserved at 60% with normal RV function. R/L heart catheterization revealed RA pressure 18 mmHg, RV pressure 62/16 mmHg, pulmonary artery pressure 66/18 mmHg, capillary wedge pressure: 17 mmHg. Patient was started on Sildenafil. Continued home hypertension medications. The patient remained intubated from 08/21/2025 to 09/07/2025 and was later transitioned to nasal cannula and BiPAP support. She underwent multiple hemodialysis sessions for ESRD and fluid overload. Placement of a tunneled dialysis catheter was delayed due to positive blood cultures; temporary catheter was used until cultures cleared. On 09/26/2025, a tunneled hemodialysis catheter was successfully placed. Infectious workup was positive for Influenza A & B. Urinalysis was positive for UTI. She was started on Tamiflu. She received IV Cefepime, vancomycin, which were discontinued due to elevated eosinophil count. She was started on IV meropenem. Later, yeast was isolated from urine culture, and IV fluconazole was initiated. Fluconazole was later transitioned to oral therapy. The patient also had intermittent episodes of confusion and agitation, likely due to underlying dementia and metabolic encephalopathy, which improved after dialysis and supportive care. After three sets of negative blood cultures, patient underwent placement of tunneled hemodialysis catheter. Physical therapy was consulted for deconditioning. visitor services assistant consulted for discharge planning to a shelter facility (SNF) for physical therapy. At the time of discharge patient is stable and will be discharged to SNF, when arranged. Discharge plan: Discharge to SNF when arranged Follow with PCP in 1 week Follow up in discharge clinic in 72 hours Follow up with Cardiology in outpatient clinic in 2 weeks Follow with Nephrology in outpatient clinic in 2 weeks Follow up with neurologist in outpatient clinic in 2 weeks Continue home medications New Medications: Fluconazole 200 mg daily for 5 days Sildenafil Citrate (Revatio) 20 mg t.i.d. Operations or Procedures XY Insertion of Venous Cath, HISTORY: HD CATH PL PROCEDURE: Informed consent was obtained. The patient was placed supine on the interventional table. A limited localization ultrasound of the right neck base was obtained. The right neck base and upper chest were prepped with chlorhexidine which was allowed to dry and draped in the usual sterile fashion. Time out was performed. 1 gram of Ancef was given IV. IV sedation was administered. The skin and the soft tissues were infiltrated with 1% Lidocaine . With real-time ultrasound guidance, the internal jugular vein was accessed with a micropuncture kit, and an image documenting patency was recorded to PACS. A subcutaneous tunneled tract was created from the right upper chest to the venotomy site. A 14.5 [place] [address], 19 cm long hemodialysis catheter was advanced through the tunneled tract. Fluoroscopy was used to advance a guidewire through the internal jugular vein into the inferior vena cava. Following serial dilatation, a 15 Frisian peel-away sheath was introduced, though which was advanced the catheter into the right atrium. The catheter tip position was confirmed with fluoroscopy. There was satisfactory flow in both lumens. The catheter lumens were flushed with saline and heparin was left indwelling in the catheter. A post-procedure image of the chest was obtained. The neck incision site was closed with a Vicryl suture and dressed sterilely. The catheter was sutured at the skin surface and exit site also dressed sterilely. No immediate complication was identified. Air Kerma 15 mGy FLUOROSCOPY TIME: 1.0 minutes. SEDATION: Dr. Holli Leal was personally responsible for the administration of moderate sedation during the procedure performed, including the use of an independent trained observer who had no other duties during the procedure. The drugs utilized were IV fentanyl and versed (see nursing log for details). The total time of supervision by the attending physician was approximately 20 minutes. FINDINGS: Widely patent right IJV. Post procedure image demonstrates smooth course of the hemodialysis catheter with the tip in the right atrium. IMPRESSION: Placement of 14.[address] [place] [address], 19 cm long hemodialysis catheter through right internal jugular vein. Plan: Please contact IR for removal when no longer needed. CHEST RADIOGRAPH INDICATION: r/o pulmonary edema TECHNIQUE: Single frontal view of the chest was obtained COMPARISON: XY CHEST PORTABLE on DOS: 09/13/25, XY CHEST PORTABLE on DOS: 09/12/25, XY CHEST XRAY 1 VIEW on DOS: 09/08/25, XY CHEST XRAY 1 VIEW on DOS: 09/07/25, XY CHEST XRAY 1 VIEW on DOS: 09/06/25 FINDINGS: Lines and Tubes: Unchanged. Lungs: Stable diffuse increased prominence of the pulmonary vasculature and small bilateral pleural effusions. No pneumothorax. Cardiomediastinal contours: Cardiomegaly. Bones: Unremarkable IMPRESSION: 1. Stable pulmonary vascular congestion and small pleural effusions. 2. Cardiomegaly. 3. Lines and tubes unchanged. EXAM: CT HEAD WITHOUT CONTRAST INDICATION: r/o structural cause for encephalopathy TECHNIQUE: CT of the head without intravenous contrast. Radiation Dose : 1. Head: CT Dose: CTDI volume is 33.2 mGy. Dose-length product is 651.15 mGy*cm The dose indicators for CT are the volume Computed Tomography (CT) Dose Index (CTDIvol) and the Dose Length Product (DLP), and are measured in units of mGy and mGy-cm, respectively. These indicators are not patient dose, but values generated from the CT scanner acquisition factors. The report includes radiation exposure data for exposures received during this examination. COMPARISON: HEAD WITHOUT CONTRAST on DOS: 12/21/20 FINDINGS: Motion artifact degrades fine detail. There is an isointense likely extra-axial partially calcified mass within the right anterior temporal pole measuring at least 3.0 cm with locodregional mass effect. No acute territorial infarct, intracranial hemorrhage, or mass effect. There are global involutional changes with compensatory prominence of the ventricles and sulci. Patchy periventricular and subcortical white matter hypoattenuation is nonspecific but may be related to small vessel ischemic disease. 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 9 mm hyperdense lesion along the right interhemispheric falx without significant mass effect. The orbits are normal. Opacification of the mastoid air cells. Subtotal opacification of the sphenoid sinuses. Moderate mucosal thickening is in the left ethmoid air cells. The osseous structures are unremarkable. IMPRESSION: 1. No acute territorial infarct or intracranial hemorrhage. 2. 3.0 cm partially calcified mass within the right anterior temporal pole, possibly a meningioma. Further assessment with a nonemergent MRI of the brain is suggested. 3. Age-related involutional changes. Chronic ischemic changes as detailed. 4. Paranasal sinus disease as detailed. Radiation optimization: All CT scans at this facility use at least one of these dose optimization techniques: automated exposure control mA and/or kV adjustment per patient size (includes targeted exams where dose is matched to clinical indication) or iterative reconstruction. CLINICAL HISTORY: COLE TECHNIQUE: Complete ultrasound exam of the kidneys and bladder was performed. COMPARISON: None FINDINGS: The right kidney has normal echogenicity and measures 11.1 cm. There is no focal parenchymal abnormality or evidence for stone. There is no hydronephrosis. The left kidney has normal echogenicity and measures 11.9 cm. There is a 1.3 cm cyst with no evidence for stone. There is no hydronephrosis. The bladder is decompressed by a Schuster catheter. IMPRESSION: NO SIGNIFICANT SONOGRAPHIC ABNORMALITY OF THE KIDNEYS. CHEST RADIOGRAPH 08/20/25 Indication: SOB Technique: Single frontal view of the chest was obtained COMPARISON: XY CHEST PORTABLE on DOS: 05/04/24, CHEST PORTABLE on DOS: 12/21/20, CHEST PORTABLE on DOS: 10/22/20, CHEST XRAY 1 VIEW on DOS: 10/08/20 FINDINGS: Cardiac silhouette is enlarged. Diffuse prominence of the pulmonary vasculature and interstitium with hazy opacity throughout both mid and lower lungs. Small bilateral pleural effusions. Bones and soft tissues demonstrate no significant abnormality IMPRESSION: Moderate to severe pulmonary edema. Condition at Discharge: Stable Final Diagnosis/Problems List # Metabolic encephalopathy due to Uremia/ Sepsis with anxiety/agitation/ delirium POA # Dementia, unspecified # Possible sundowning # Right eye nystagmus # Acute on chronic HFpEF # Pulmonary Edema # Hypertension # CAD # Severe pulmonary hypertension # Acute hypercapnic respiratory failure secondary to pulmonary edema s/p Extubation # Acute hypoxic respiratory failure # Respiratory acidosis (Resolved) # s/p Extubation 13 days of Intubation # Acute COPD exacerbation # Community acquired pneumonia due to Gram-positive/Gram-negative pneumonia/ Influenza A and B POA # Peptic ulcer prophylaxis # Constipation # Complicated UTI # COLE on CKD likely hemodynamically mediated/ VMN # ESRD requiring intermittent HD # Hyperkalemia, resolved # Hypokalemia # Mixed respiratory and metabolic acidosis, resolved # Nephrotic syndrome secondary to underlying diabetic nephropathy, possible # Hypernatremia due to insensible water loss # Sepsis POA d/t below # Influenza A and B Pneumonia POA # Complicated UTI, present on admission # Bacteremia ruled out; positive blood culture with Staphylococcus epidermidis due to contamination # Thrombocytopenia, resolved # Microcytic, hypochromic anemia # Heparin induced thrombocytopenia type 1, possible # Eosinophilia # Type 2 diabetes mellitus # Morbid Obesity with BMI 41 # Generalized itching likely due to uremia Discharge Disposition: Fdc Facility Discharge Instruct/Medications Diet: Consistent carbohydrate, Cardiac 2g Na,low cholest Diet comment: Heart Health: Focus on lean proteins, healthy fats (like olive oil, nuts, avocado), and high-fiber foods. Blood Sugar Control: Spread carbohydrate intake evenly throughout the day, avoiding large spikes. Sodium Reduction: Limit processed foods, canned soups, and salty snacks. Nutrient Density: Prioritize whole, minimally processed foods. Activity: No Restrictions, As Tolerated Follow Up/Referral: Follow with PCP in 1 week Follow up in discharge clinic in 72 hours Follow up with Cardiology in outpatient clinic in 2 weeks Follow with Nephrology in outpatient clinic in 2 weeks Follow up with neurologist in outpatient clinic in 2 weeks Medications: As per EHR New Medications: Fluconazole (Fluconazole) 100 Mg Tab 200 MG PO DAILY for 5 Days, #10 TAB Sildenafil Citrate (Revatio) 20 Mg Tab 20 MG PO TID@08,14,20 for 30 Days, #90 TAB Continued Medications: Allopurinol (Allopurinol) 100 Mg Tab 100 MG PO BID for 30 Days, MG Carvedilol (Carvedilol) 12.5 Mg Tab 12.5 MG PO Q12HR for 30 Days, MG Cholecalciferol (Vitamin D3) 2,000 Unit Tab 2000 UNIT PO DAILY, TAB Docusate Sodium (Docusate Sodium) 100 Mg Tab 100 MG PO BID, TAB Esomeprazole Magnesium (Esomeprazole Magnesium) 40 Mg Cap 40 MG PO DAILY, CAP Ferrous Sulfate (Ferrous Sulfate) 324 Mg Tab 1 TAB PO DAILYPRN Gabapentin (Gabapentin) 300 Mg Cap 300 MG PO TID for 30 Days, MG Hydroxyzine Hcl (Hydroxyzine Hcl) 25 Mg Tab 25 MG PO BID for 30 Days, MG Insulin Aspart (Insulin Aspart Flexpen) 100 Unit/Ml Inj 10 UNIT SC BID, INJ Loratadine (Claritin Tablet) 10 Mg Tb 1 TAB PO DAILYPRN Magnesium Oxide (Magnesium Oxide) 400 Mg Tab 1 TAB PO DAILY, #30 TAB 5 Refills Omeprazole (Omeprazole Dr) 20 Mg Cap 1 CAP PO DAILYPRN Sacubitril-Valsartan (Entresto 24-26 mg) 1 Tab Tab 1 TAB PO BID, TAB Simvastatin (Simvastatin) 20 Mg Tab 20 MG PO DAILY for 30 Days Tadalafil (Alyq) 20 Mg Tab TAB PO Tizanidine Hydrochloride (Zanaflex) 4 Mg Tab 1 TAB PO QPM, #30 TAB Discontinued Medications: Amoxicillin & Pot Clavulanate (Augmentin Tablet) 875 Mg Tb 875 MG PO BID, TAB Ascorbic Acid (Vitamin C) 1,000 Mg Tab 1000 MG PO DAILY, TAB Doxycycline (Monohydrate) (Doxycycline) 100 Mg Cap 100 MG PO BID, #20 CAP Temazepam (Temazepam) 30 Mg Cap 15 MG PO PRN, CAP Scheduled Allopurinol (Allopurinol), 100 MG PO BID, (Reported) Carvedilol (Carvedilol), 12.5 MG PO Q12HR, (Reported) Cholecalciferol (Vitamin D3), 2,000 UNIT PO DAILY, (Reported) Docusate Sodium (Docusate Sodium), 100 MG PO BID, (Reported) Esomeprazole Magnesium (Esomeprazole Magnesium), 40 MG PO DAILY, (Reported) Ferrous Sulfate (Ferrous Sulfate), 1 TAB PO DAILYPRN, (Reported) Fluconazole (Fluconazole), 200 MG PO DAILY Gabapentin (Gabapentin), 300 MG PO TID, (Reported) Hydroxyzine Hcl (Hydroxyzine Hcl), 25 MG PO BID, (Reported) Insulin Aspart (Insulin Aspart Flexpen), 10 UNIT SC BID, (Reported) Loratadine (Claritin Tablet), 1 TAB PO DAILYPRN, (Reported) Magnesium Oxide (Magnesium Oxide), 1 TAB PO DAILY, (Reported) Omeprazole (Omeprazole Dr), 1 CAP PO DAILYPRN, (Reported) Pregabalin (Lyrica), 1 CAP PO BID, (Reported) Sacubitril-Valsartan (Entresto 24-26 mg), 1 TAB PO BID, (Reported) Sildenafil Citrate (Revatio), 20 MG PO TID@08,14,20 Simvastatin (Simvastatin), 20 MG PO DAILY, (Reported) Tizanidine Hydrochloride (Zanaflex), 1 TAB PO QPM, (Reported) Tramadol Hcl (Tramadol Hcl), 50 MG PO Q6HPRN, (Reported) Miscellaneous Medications Tadalafil (Alyq), TAB PO, (Reported) Discontinued Medications Amoxicillin & Pot Clavulanate (Augmentin Tablet), 875 MG PO BID, (Reported) Ascorbic Acid (Vitamin C), 1,000 MG PO DAILY, (Reported) Doxycycline (Monohydrate) (Doxycycline), 100 MG PO BID Temazepam (Temazepam), 15 MG PO PRN, (Reported) Discharge Statement: "Patient was advised to return to the ER or call 911 if any headaches, dizziness, shortness of breath, chest pain, abdominal pain, bleeding, fevers, or worsening of medical condition. Patient was counseled about treatment plan, medications, possible side effects, patientverbalized understanding. All questions were answered to the best of my ability. This discharge took greater then 30 minutes in planning, reviewing documentation, counseling the patient, and discussing with other team members." ASSESSMENT ASSESSMENT Assessment # Metabolic encephalopathy due to Uremia/ Sepsis with anxiety/agitation/ delirium POA # Dementia, unspecified # Possible sundowning # Right eye nystagmus # Acute on chronic HFpEF # Pulmonary Edema # Hypertension # CAD # Severe pulmonary hypertension # Acute hypercapnic respiratory failure secondary to pulmonary edema s/p Extubation # Acute hypoxic respiratory failure # Respiratory acidosis (Resolved) # s/p Extubation 13 days of Intubation # Acute COPD exacerbation # Community acquired pneumonia due to Gram-positive/Gram-negative pneumonia/ Influenza A and B POA # Peptic ulcer prophylaxis # Constipation # Complicated UTI # COLE on CKD likely hemodynamically mediated/ VMN # ESRD requiring intermittent HD # Hyperkalemia, resolved # Hypokalemia # Mixed respiratory and metabolic acidosis, resolved # Nephrotic syndrome secondary to underlying diabetic nephropathy, possible # Hypernatremia due to insensible water loss # Sepsis POA d/t below # Influenza A and B Pneumonia POA # Possible Complicated UTI, present on admission # Bacteremia ruled out; positive blood culture with Staphylococcus epidermidis due to contamination # Thrombocytopenia, resolved # Microcytic, hypochromic anemia # Heparin induced thrombocytopenia type 1, possible # Eosinophilia # Type 2 diabetes mellitus # Morbid Obesity with BMI 41 # Generalized itching likely due to uremia Visit Coding STANDARD RES Billing Provider: PATRICIA LOPEZ MD Date of Service if different f: Sep 27, 2025 Common Visit Codes: 55335-RHD/OBS DISCH DAY >30min URIAH NOBLE RESIDENT Sep 27, 2025 17:13
[2025-09-27] MEDS ORDERED: ALL100T PO (17:14)
== END 2025-09-27 19:00 | DRG 870 ==
LOC: ER 19:03 → UNDOADMIN 23:08 → OVERFLOW 23:08 → ICU WEST 08-21 16:26 → DOU 09-09 18:37 → ICU WEST 09-10 16:50 → DOU 09-14 20:26 → TELE-WESTW 09-19 14:46
PROVIDERS: ADMIT Internal Medicine; ATTEND Internal Medicine
PROC: 5A1955Z Respiratory Ventilation, Greater than 96 Consecutive Hours (ICD-10-PCS; principal; 2025-08-20)
PROC: 0BH17EZ Insertion of Endotracheal Airway into Trachea, Via Natural or Artificial Opening (ICD-10-PCS; 2025-08-20)
PROC: 02HV33Z Insertion of Infusion Device into Superior Vena Cava, Percutaneous Approach (ICD-10-PCS; 2025-08-20)
PROC: B548ZZA Ultrasonography of Superior Vena Cava, Guidance (ICD-10-PCS; 2025-08-20)
PROC: 5A09357 Assistance with Respiratory Ventilation, Less than 24 Consecutive Hours, Continuous Positive Airway Pressure (ICD-10-PCS; 2025-08-20)
PROC: 4A023N8 Measurement of Cardiac Sampling and Pressure, Bilateral, Percutaneous Approach (ICD-10-PCS; 2025-08-30)
PROC: B211YZZ Fluoroscopy of Multiple Coronary Arteries using Other Contrast (ICD-10-PCS; 2025-08-30)
PROC: B215YZZ Fluoroscopy of Left Heart using Other Contrast (ICD-10-PCS; 2025-08-30)
PROC: 06HY33Z Insertion of Infusion Device into Lower Vein, Percutaneous Approach (ICD-10-PCS; 2025-08-30)
PROC: B54BZZA Ultrasonography of Right Lower Extremity Veins, Guidance (ICD-10-PCS; 2025-08-30)
PROC: 05HY33Z Insertion of Infusion Device into Upper Vein, Percutaneous Approach (ICD-10-PCS; 2025-09-08)
PROC: B54NZZA Ultrasonography of Left Upper Extremity Veins, Guidance (ICD-10-PCS; 2025-09-08)
PROC: 02HV33Z Insertion of Infusion Device into Superior Vena Cava, Percutaneous Approach (ICD-10-PCS; 2025-09-12)
PROC: B548ZZA Ultrasonography of Superior Vena Cava, Guidance (ICD-10-PCS; 2025-09-12)
PROC: 0JH63XZ Insertion of Tunneled Vascular Access Device into Chest Subcutaneous Tissue and Fascia, Percutaneous Approach (ICD-10-PCS; 2025-09-26)
PROC: 02H633Z Insertion of Infusion Device into Right Atrium, Percutaneous Approach (ICD-10-PCS; 2025-09-26)
PROC: B548ZZA Ultrasonography of Superior Vena Cava, Guidance (ICD-10-PCS; 2025-09-26)
PROC: B5181ZA Fluoroscopy of Superior Vena Cava using Low Osmolar Contrast, Guidance (ICD-10-PCS; 2025-09-26)
DX: A41.59 Other Gram-negative sepsis (principal); J96.01 Acute respiratory failure with hypoxia; N17.0 Acute kidney failure with tubular necrosis; J15.69 Pneumonia due to other Gram-negative bacteria; J15.9 Unspecified bacterial pneumonia; G93.41 Metabolic encephalopathy; J96.02 Acute respiratory failure with hypercapnia; N18.6 End stage renal disease; I50.33 Acute on chronic diastolic (congestive) heart failure; J10.08 Influenza due to other identified influenza virus with other specified pneumonia; I13.2 Hypertensive heart and chronic kidney disease with heart failure and with stage 5 chronic kidney disease, or end stage renal disease; D75.82 Heparin induced thrombocytopenia (HIT); J44.0 Chronic obstructive pulmonary disease with (acute) lower respiratory infection; N39.0 Urinary tract infection, site not specified; Z99.2 Dependence on renal dialysis; D69.6 Thrombocytopenia, unspecified; T45.515A Adverse effect of anticoagulants, initial encounter; F03.911 Unspecified dementia, unspecified severity, with agitation; I27.20 Pulmonary hypertension, unspecified; E11.22 Type 2 diabetes mellitus with diabetic chronic kidney disease; E66.01 Morbid (severe) obesity due to excess calories; D50.9 Iron deficiency anemia, unspecified; J44.1 Chronic obstructive pulmonary disease with (acute) exacerbation; E87.0 Hyperosmolality and hypernatremia; N04.9 Nephrotic syndrome with unspecified morphologic changes; E87.29 Other acidosis; E87.4 Mixed disorder of acid-base balance; F03.94 Unspecified dementia, unspecified severity, with anxiety; Z68.41 Body mass index [BMI] 40.0-44.9, adult; E87.5 Hyperkalemia; E78.5 Hyperlipidemia, unspecified; E87.6 Hypokalemia; I25.10 Atherosclerotic heart disease of native coronary artery without angina pectoris; E11.40 Type 2 diabetes mellitus with diabetic neuropathy, unspecified; K59.00 Constipation, unspecified; D72.10 Eosinophilia, unspecified; H55.09 Other forms of nystagmus; Z78.1 Physical restraint status; Z79.4 Long term (current) use of insulin; Z79.899 Other long term (current) drug therapy; Z99.81 Dependence on supplemental oxygen; Y92.89 Other specified places as the place of occurrence of the external cause
CPT/HCPCS: 31500; 36415; 36556; 36558; 36600; 70450; 71045; 76775; 77001; 80048; 80053; 80076; 80202; 81001; 82306; 82550; 82570; 82805; 82962; 83010; 83605; 83615; 83735; 83880; 83970; 84100; 84132; 84156; 84300; 84484; 85007; 85025; 85027; 85610; 85730; 86803; 86850; 86900; 86901; 87040; 87077; 87081; 87086; 87088; 87186; 87340; 87426; 87804; 90935; 92610; 93306; 93460; 94002; 94003; 94640; 96374; 97110; 97116; 97163; 97530; 99152; 99291; 99292; G0378; G9035; J0692; J1450; J1642; J1815; J2003; J2185; J2250; J2405; J2470; J2543; J2704; J3490; P9047; Q9967